=== PATIENT | male | born 1960 | race Caucasian/White ===

== ENCOUNTER → 2020-03-17 | Day surgery (SDC) | payer MEDICARE ==
[2020-03-14 11:58] LABS: BASOPHILS # (AUTO) 0.1 (0.0-0.1); BASOPHILS % 0.7 % (0.0-1.0); EOSINOPHILS % 0.6 % (0.0-6.0); HEMATOCRIT 38.7 % (38.2-49.6); HEMOGLOBIN 12.3 g/dL (14.0-18.0); LYMPHOCYTES # (AUTO) 1.7 (1.0-3.2); LYMPHOCYTES % 24.3 % (18.0-39.1); MEAN CORPUSCULAR HEMOGLOBIN 27.4 pg (28-32); MEAN CORPUSCULAR HGB CONC 31.8 g/dL (31-35); MEAN CORPUSCULAR VOLUME 86.2 fL (81-99); MONOCYTES # (AUTO) 0.6 (0.2-0.8); NEUTROPHILS # (AUTO) 4.6 (2.1-6.9); PLATELET COUNT 202 x10e3/uL (140-360); RED BLOOD COUNT 4.49 x10e6/uL (4.3-5.7); RED CELL DISTRIBUTION WIDTH 13.5 % (11.7-14.4)
[~2020-03-17] MED LIST: ASPIRIN81 MG PO; ATORVASTATIN CA20 MG PO; CALCIUM CARBON200 MG PO; CEFAZOLIN SOD 1 GM/NS 50ML 100 ML IV ONE; DEXAMETHASONE SOD PHOS INJ 4 MG/ML VIAL ONE; EFFIENT10 MG PO; EPHEDRINE SULFATE INJ 50 MG/ML VIAL ONE; FENTANYL CITRATE/PF 100MCG/2 ML INJ ONE; GABAPENTIN300 MG PO; GLYCOPYRROLATE INJ 0.2 MG/ML VIAL ONE; IOPAMIDOL 300MG/ML 50ML INFUS..BTL IV ONE; LEVOFLOXACIN250 MG PO; LIDOCAINE HCL 2% LOCAL INJ 5 ML SDV VIAL INJ ONE; LISINOPRIL10 MG PO; MELATONIN3 MG PO; METOPROLOL; METOPROLOL TART25 MG PO; MIDAZOLAM HCL 2 MG/2 ML VIAL ONE; MIRALAX17 GM PO; ONDANSETRON HCL INJ 2MG/ML 2ML 2 MG/ML VIAL ONE; PANTOPRAZOLE SO40 MG PO; PHENYLEPHRINE HCL 1% 10 MG/ML VIAL ONE; PROPOFOL IV EMULSION 10 MG/ML 20 ML VIAL ONE; SEVOFLURANE INHAL SOLN 250 ML PEN BTL ONE; TYLENOL # 31 EA PO; VENTOLIN HFA18 GM INH
[2020-03-17 13:20] VITALS: BP 110/70
== END | disposition home or self-care (01) ==
LOC: OR 08:41
PROVIDERS: ATTEND Urology
DX: T83.111A Breakdown (mechanical) of implanted urinary sphincter, initial encounter (principal); R32 Unspecified urinary incontinence; N35.919 Unspecified urethral stricture, male, unspecified site; N52.9 Male erectile dysfunction, unspecified; Z96.0 Presence of urogenital implants; N32.89 Other specified disorders of bladder; M54.5 Low back pain; J45.909 Unspecified asthma, uncomplicated; I10 Essential (primary) hypertension; I25.10 Atherosclerotic heart disease of native coronary artery without angina pectoris; K21.9 Gastro-esophageal reflux disease without esophagitis; Y83.8 Other surgical procedures as the cause of abnormal reaction of the patient, or of later complication, without mention of misadventure at the time of the procedure; Z88.6 Allergy status to analgesic agent; Z95.5 Presence of coronary angioplasty implant and graft
CPT/HCPCS: 36415; 52500; 71046; 74450; 85025; J0690; J1100; J2001; J2370; J2405; J2704; J3010; Q9967; U0002; J2250

== ENCOUNTER 2020-03-18 15:54 | Inpatient (IN) | payer MEDICARE ==
[~2020-03-18] VITALS: Ht 170.2 cm; Wt 93.0 kg
[~2020-03-18 15:54] MED LIST changes: -ASPIRIN81 MG PO; -ATORVASTATIN CA20 MG PO; -CALCIUM CARBON200 MG PO; -CEFAZOLIN SOD 1 GM/NS 50ML 100 ML IV ONE; -DEXAMETHASONE SOD PHOS INJ 4 MG/ML VIAL ONE; -EPHEDRINE SULFATE INJ 50 MG/ML VIAL ONE; -FENTANYL CITRATE/PF 100MCG/2 ML INJ ONE; -GABAPENTIN300 MG PO; -GLYCOPYRROLATE INJ 0.2 MG/ML VIAL ONE; -IOPAMIDOL 300MG/ML 50ML INFUS..BTL IV ONE; -LEVOFLOXACIN250 MG PO; -LIDOCAINE HCL 2% LOCAL INJ 5 ML SDV VIAL INJ ONE; -MELATONIN3 MG PO; -METOPROLOL TART25 MG PO; -MIDAZOLAM HCL 2 MG/2 ML VIAL ONE; -MIRALAX17 GM PO; -ONDANSETRON HCL INJ 2MG/ML 2ML 2 MG/ML VIAL ONE; -PANTOPRAZOLE SO40 MG PO; -PHENYLEPHRINE HCL 1% 10 MG/ML VIAL ONE; -PROPOFOL IV EMULSION 10 MG/ML 20 ML VIAL ONE; -SEVOFLURANE INHAL SOLN 250 ML PEN BTL ONE; -TYLENOL # 31 EA PO; -VENTOLIN HFA18 GM INH
[2020-03-18] MEDS ORDERED: FENTANYL CITRATE/PF 100MCG/2 ML INJ IV PRN (16:30)
[2020-03-18] MEDS ORDERED: MORPHINE SULFATE 2 MG/ML SYR 1ML IV PRN (16:30)
[2020-03-18] MEDS ORDERED: AMPICILLIN SOD/SULBACTAM 3GM 100 ML IV ONE (16:30)
--- NOTE | 2020-03-18 16:45 | Emergency Department Note ---
History of Present Illnes History of Present Illness Chief Complaint: Genitourinary History of Present Illness This is a 59 year old male Chief Complaint Comment PT CAME IN VIA POV FOR C/O BACK PAIN, PT STATES THAT HE WAS SENT HERE BY DR. DON FOR ADMISSION AND POSSIBLE SURGERY TOMORROW, PT STATES THAT HE HAD A URETHRAL DILATION WITH DR. DON YESTERDAY AND WAS TOLD HE HAS A HOLE IN HIS URETHRA THAT NEEDS INTERVENTION Historian: Patient Arrival Mode: Car Past Medical/Family History Physician Review I have reviewed the patient's past medical and family history. Any updates have been documented here. Past Medical History Recent Fever: No Clinical Suspicion of Infectio: No New/Unexplained Change in Ment: No Past Medical History: Hypertension, Hyperlipedemia Other Surgery: Urethral Dilation 03/17/2020 Review of Systems Review of Systems Constitutional: Reports no symptoms EENTM: Reports no symptoms Cardiovascular: Reports no symptoms Respiratory: Reports no symptoms Gastrointestinal: Reports as per HPI, Reports abdominal pain (law) Genitourinary: Reports no symptoms Musculoskeletal: Reports no symptoms Integumentary: Reports no symptoms Neurological: Reports no symptoms Psychological: Reports no symptoms Endocrine: Reports no symptoms Hematological/Lymphatic: Reports no symptoms Physical Exam Related Data Allergies: Coded Allergies: morphine (Verified Allergy, Unknown, 03/12/20) Triage Vital Signs Vital Signs Date Time Temp Pulse Resp B/P (MAP) Pulse Ox O2 Delivery O2 Flow Rate FiO2 03/18/20 16:19 97.9 60 20 105/73 100 Room Air Vital signs reviewed: Yes Physical Exam CONSTITUTIONAL Constitutional: Present well-developed, Present well-nourished HENT HENT: Present normocephalic, Present atraumatic, Present oropharynx clear/moist, Present nose normal HENT L/R: Present left ext ear normal, Present right ext ear normal EYES Eyes: Reports PERRL, Reports conjunctivae normal NECK Neck: Present ROM normal PULMONARY Pulmonary: Present effort normal, Present breath sounds normal CARDIOVASCULAR Cardiovascular: Present regular rhythm, Present heart sounds normal, Present capillary refill normal, Present normal rate GASTROINTESTINAL Abdominal: Present soft, Present nontender, Present bowel sounds normal GENITOURINARY Genitourinary: Present exam deferred, Present other (Pelvic pain) SKIN Skin: Present warm, Present dry MUSCULOSKELETAL Musculoskeletal: Present ROM normal NEUROLOGICAL Neurological: Present alert, Present oriented x 3, Present no gross motor or sensory deficits PSYCHOLOGICAL Psychological: Present mood/affect normal, Present judgement normal Assessment & Plan Medical Decision Making MDM 59-year-old male with past medical history significant for pelvic fracture 13 years ago with 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 Patient was told to come to the emergency department for direct admission by Dr. Nick Don. Patient was started on Unasyn and gentamicin. Do not suspect sepsis at this time. Patient was discussed with Dr. Trent who has agreed to admit. Patient appropriate for transfer to floor. Reassessment Reassessment time: 17:24 Reassessment Well appearing, NAD Assessment & Plan Final Impression: (1) UTI (urinary tract infection) Depart Disposition: ADMITTED Last Vital Signs Date Time Temp Pulse Resp B/P (MAP) Pulse Ox O2 Delivery O2 Flow Rate FiO2 03/18/20 16:19 97.9 60 20 105/73 100 Room Air Home Meds Reported Medications [Metoprolol ] No Conflict Check, 25 DAILY 03/12/20 Prasugrel Hcl (EFFIENT) 10 Mg Tablet, 10 MG PO DAILY, #30 TAB 03/12/20 Lisinopril (LISINOPRIL) 10 Mg Tablet, 15 MG PO DAILY, #30 TAB 02/29/20 Medications in the ED Ampicillin Sodium/ Sulbactam Sodium 100 ml @ 100 mls/hr ONCE ONCE IV ; Start 03/18/20 at 16:30; Stop 03/18/20 at 17:29 Gentamicin Sulfate/Sodium Chloride 50 ml @ 50 mls/hr ONCE ONCE IV ; Start 03/18/20 at 17:00; Stop 03/18/20 at 17:59 Ondansetron HCl 4 mg Q4H PRN IV NAUSEA AND VOMITING; Start 03/18/20 at 16:30; Stop 04/17/20 at 16:29 Sodium Chloride 1,000 ml @ 125 mls/hr Q8H IV ; Start 03/18/20 at 16:30; Stop 04/17/20 at 16:29 Morphine Sulfate 4 mg Q4H PRN IV SEVERE PAIN (7-10); Start 03/18/20 at 16:30; Stop 03/25/20 at 16:29; Status UNV Fentanyl Citrate 50 mcg Q2H PRN IV SEVERE PAIN (7-10); Start 03/18/20 at 16:30; Stop 03/25/20 at 16:29 SONIA PAUL MD Mar 18, 2020 16:45
[2020-03-18] MEDS ORDERED: GENTAMICIN 60MG/NS 50ML 50 ML IV ONE (17:00)
--- OUTSIDE RECORDS SUMMARY | 2020-03-18 17:07 | XMS REPORT | Clinical Summary ---
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 Active albuterol (ACCUNEB) 2.5 VVN Q 8 H FOR 0 mg /3 mL (0.083 %) 14 DAYS 0 nebulizer solution Active ProAir HFA 90 SW AND INL 2 0 mcg/actuation inhaler PUFFS PO Q 6 0 H PRN Active ibuprofen (ADVIL) 400 MG TK ONE T PO Q 0 07/15 tablet 4 TO 6 H PRN 0 P OR FEVER Active lisinopriL (PRINIVIL) 10 Take 10 mg by 0 06/08 mg tablet mouth daily. 0 Active tiZANidine (ZANAFLEX) 4 Take 4 mg by 0 MG tablet mouth 3 0 (three) times a day as needed. 07/04/2019 sulfamethoxazole-trimetho Take 1 tablet 14 tablet 0 prim (BACTRIM DS) 800-160 by mouth 2 0 mg per tablet (two) times a day for 7 days. 07/02/2019 traMADoL (ULTRAM) 50 mg Take 1 tablet 12 tablet 0 tabletIndications: acute (50 mg total) 0 pain by mouth every 6 (six) hours as needed for moderate pain for up to 5 days .acute pain. Active Problems Not on file Encounters Care Team Description Date Type Specialty Citlali Oliveira MD Acute low back pain without sciatica, un specified back pain laterality (Primary Dx) 08/25/2019 Emergency Emergency Medicine Brian Celeste MD Complicated UTI (urinary tract infection ) (Primary Dx) 06/27/2019 Emergency Emergency Medicine after 03/18/2019 Surgical History Surgery Date Site/Laterality Comments COLON SURGERY INSERT / REPLACE / REMOVE insertion of artifical s phincter PROSTHESIS URETHRAL SPHINCTER LYSIS, ADHESIONS, FOR SMALL BOWEL OBSTRUCTION Medical History Medical History Date Comments Sepsis (HCC) 09/20 Asthma Social History Date Tobacco Use Types Packs/Day Years Used Never Smoker Smokeless Tobacco: Never Used Drinks/Week oz/Week Comments Alcohol Use No Sex Assigned at Date Recorded Not on file Last Filed Vital Signs Reading Time Taken Comments Vital Sign 168/98 08/25/2019 11:00 AM CDT Blood Pressure 64 08/25/2019 11:00 AM CDT Pulse 36.7 C (98.1 F) 08/25/2019 10:15 AM CDT Temperature 19 08/25/2019 10:15 AM CDT Respiratory Rate 97% 08/25/2019 11:00 AM CDT Oxygen Saturation - - Inhaled Oxygen Concentration 90.7 kg (200 lb) 08/25/2019 10:15 AM CDT Weight 170.2 cm (5' 7") 08/25/2019 10:15 AM CDT Height 31.32 08/25/2019 10:15 AM CDT Body Mass Index Plan of Treatment Health Maintenance Due Date Last Done Comments COLONOSCOPY SCREENING 10/21/2011 SHINGLES VACCINES (#1) 10/21/2011 INFLUENZA VACCINE 12/05/2019 Procedures Comments Procedure Name Priority Date/Time Associated Diag nosis URINE CULTURE Routine 08/25/2019 11:33 AM CDT URINALYSIS SCREEN AND Routine 08/25/2019 MICROSCOPY, WITH REFLEX 11:14 AM CDT TO CULTURE ESTIMATED GFR STAT 08/25/2019 10:43 AM CDT COMPREHENSIVE METABOLIC STAT 08/25/2019 PANEL 10:43 AM CDT HC COMPLETE BLD COUNT STAT 08/25/2019 W/AUTO DIFF 10:[address] RENAL STONE PROTOCOL STAT 06/27/2019 7:06 PM [facility] URINE CULTURE STAT 06/27/2019 5:47 PM [facility] ESTIMATED GFR STAT 06/27/2019 5:30 PM [facility] LIPASE LEVEL STAT 06/27/2019 5:30 PM [facility] COMPREHENSIVE METABOLIC STAT 06/27/2019 PANEL 5:30 PM [facility] HC COMPLETE BLD COUNT STAT 06/27/2019 W/AUTO DIFF 5:30 PM [facility] URINALYSIS SCREEN AND STAT 06/27/2019 MICROSCOPY, WITH REFLEX 4:45 PM [facility] TO CULTURE after 03/18/2019 Results * Urine culture (08/25/2019 11:33 AM CDT) Only the most recent of 2 results within the time period is included. Urine culture Mixed sisi <=10-3 col/cc [facility] isolate Comment: [facility]SH[facility] Specimen Information HOSPITAL Specimen Source: Urine Specimen Site: Clean catch Specimen Urine Performing Organization Address City/State/ZIP Code P ford Number [facility] DEPARTMENT OF [address] [place] [address] PATHOLOGY AND GENOMIC MEDICINE [address] * Urinalysis screen and microscopy, with reflex to culture (08/25/2019 11:14 AM CDT) Only the most recent of 2 results within the time period is included. Specimen site Clean catch [facility] Color, UA Yellow [facility] Appearance, UA Slightly-Cloudy [facility] Specific 1.019 1.001 - 1.035 [place] gravity, [facility] pH, UA 7.0 5.0 - 8.5 [facility] Protein, UA Negative Negative [facility] Glucose, UA Negative Negative [facility] Ketones, UA Negative Negative [facility] Bilirubin, UA Negative Negative [facility] Blood, UA Negative Negative [facility] Nitrite, UA Negative Negative [facility] Urobilinogen, Negative <2.0 [facility] Leukocyte Negative Negative [facility] esterase, [facility] Epithelial Many /HPF [facility] cells, UA [facility] WBC, UA 7 (H) 0 - 1 /HPF [facility] RBC, UA 2 0 - 5 /HPF [facility] Bacteria, UA None seen None seen [facility] Yeast, UA None seen [facility] Yeast with None seen [facility] pseudohyphae, [facility] Specimen Urine Performing Organization Address City/[facility]/ZIP Code P ford Number [facility] DEPARTMENT OF [address] [place] [address] PATHOLOGY AND GENOMIC MEDICINE [address] * Estimated GFR (08/25/2019 10:43 AM CDT) Only the most recent of 2 results within the time period is included. Pathologist [facility] Estimated GFR 83 mL/min/1.73 m2 [facility] Comment: [facility] G1 >=90 Normal or high G2 60-89 Mildly decreased G3a 45-59 Mildly to moderately decreased G3b 30-44 Moderately to severely decreased G4 15-29 Severely decreased G5 <15 Kidney failure The eGFR was calculated using the Chronic Kidney Disease Epidemiology Collaboration (CKD-EPI) equation. Interpretation is based on recommendations of the National Kidney Foundation-Kidney Disease Outcomes Quality Initiative (NKF-KDOQI) published in 2014. Specimen Performing Organization Address City/[facility] [place] [address] PATHOLOGY AND GENOMIC MEDICINE [address] * CBC with platelet and differential (08/25/2019 10:43 AM CDT) Only the most recent of 2 results within the time period is included. WBC 6.3 4.2 - 11.0 k/uL [facility] RBC 4.63 4.04 - 5.86 m/uL [facility] HGB 14.0 13.0 - 17.3 g/dL [facility] HCT 42.5 34.0 - 45.0 % [facility] MCV 91.8 80.0 - 98.0 fL [facility] MCH 30.2 27.0 - 34.0 pg [facility] MCHC 32.9 31.5 - 36.5 g/dL [facility] RDW - SD 47.5 37.0 - 51.0 fL [facility] MPV 9.3 7.4 - 10.4 fL [facility] Platelet count 192 150 - 400 k/uL [facility] Nucleated RBC 0.00 /100 WBC [facility] Neutrophils 51.3 36.0 - 66.0 % [facility] Lymphocytes 36.4 24.0 - 44.0 % [facility] Monocytes 9.2 (H) 0.0 - 6.0 % [facility] Eosinophils 1.7 0.0 - 6.0 % [facility] Basophils 0.8 0.0 - 1.2 % [facility] Immature 0.6 0.0 - 1.0 % [facility] granulocytes [facility] Specimen Blood Performing Organization Address City/State/ZIP Code P ford Number [facility] DEPARTMENT OF [address] [place] [address] PATHOLOGY AND GENOMIC MEDICINE [address] * Comprehensive metabolic panel (08/25/2019 10:43 AM CDT) Only the most recent of 2 results within the time period is included. Sodium 140 135 - 150 mEq/L [facility] Potassium 4.9 3.5 - 5.0 mEq/L [facility] Chloride 105 98 - 112 mEq/L [facility] CO2 23 (L) 24 - 31 mmol/L [facility] Anion gap 12@ANIO 7 - 15 mEq/L [facility] BUN 14 7 - 18 mg/dL [facility] Creatinine 1.00 0.70 - 1.20 mg/dL [facility] Glucose 101 (H) 65 - 100 mg/dL [facility] Calcium 9.9 8.3 - 10.2 mg/dL [facility] Protein 6.8 6.3 - 8.3 g/dL [facility] Albumin 3.7 3.5 - 5.0 g/dL [facility] A/G ratio 1.2 0.7 - 3.8 [facility] Alkaline 70 0 - 129 U/L [facility] phosphatase [facility] AST 21 10 - 50 U/L [facility] ALT 21 5 - 50 U/L [facility] Total bilirubin <0.3 0.2 - 1.2 mg/dL [facility] Specimen Blood Performing Organization Address City/State/ZIP Code P ford Number [facility] DEPARTMENT OF [address] [id number] PATHOLOGY AND GENOMIC MEDICINE [facility] [address] [place] [address] * CT Renal Stone Protocol (06/27/2019 7:06 PM [facility]) Specimen Narrative Performed At EXAMINATION: CT RENAL STONE PROTOCOL [facility] CLINICAL HISTORY: Urinary tract stone known symptomatic complications or risk factors, right flank pain TECHNIQUE: Multiple axial images of the abdomen and pelvis were obtained without intravenous administration of iodinated contrast. Sagittal and coronal computerized reformatted images were al so obtained. The lack of intravenous contrast reduces the sensitivity of detecting solid organ di sease.Automatic exposure control or iterative reconstruction techniques use d to reduce dose. COMPARISON: 11/13/2017 Impression: 1.Without IV contrast evaluation of henna id organs of upper abdomen is limited. No nephrolithiasis or hydronephrosis. Uret ers are not dilated and no stones are seen in the bladder. 2.Significant distention of the stomach containing debris-like material. Possibility of gastric outlet obstructi on should be considered and correlated. 3.No small bowel obstruction. Evidence for prior small bowel surgery. 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 5.In the dependent part of the pelvis t here is a 3.3 x 2.4 cm soft tissue nodule new since the prior study. Summary: 1.Gastric distention suggesting gastric outlet obstruction and should be correlated clinically. 2.New pelvic 3.3 cm soft tissue nodule. This could be an enlarged node or other peritoneal mass. Contrast enhanced stud y or MRI would be useful for further evaluation. [facility]-[id number] Procedure Note Hm Interface, Radiology Results Incoming - 06/27/2019 7:24 PM [facility] EXAMINATION: CT RENAL STONE PROTOCOL CLINICAL HISTORY: Urinary tract stone known symptomatic complications or risk factors, right flank pain TECHNIQUE: Multiple axial images of the abdomen and pelvis were obtained without intravenous administration of iodinated contrast. Sagittal and coronal computerized reformatted images were also obtained. The lack of intravenous contrast reduces the sensitivity of detecting solid organ disease.Automatic exposure control or iterative reconstruction techniques used to reduce dose. COMPARISON: 11/13/2017 Impression: 1.Without IV contrast evaluation of orquidea d organs of upper abdomen is limited. No nephrolithiasis or hydronephrosis. Ureters are not dilated and no stones are seen in the bladder. 2.Significant distention of the stomach containing debris-like material. Possibility of gastric outlet obstruction should be considered and correlated. 3.No small bowel obstruction. Evidence f or prior small bowel surgery. 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 5.In the dependent part of the pelvis th ere is a 3.3 x 2.4 cm soft tissue nodule new since the prior study. Summary: 1.Gastric distention suggesting gastric outlet obstruction and should be correlated clinically. 2.New pelvic 3.3 cm soft tissue nodule. This could be an enlarged node or other peritoneal mass. Contrast enhanced study or MRI would be useful for further evaluation. [facility]-[id number] Performing Organization Address City/[facility]/ZIP Code P ford Number [facility] [address] [place] [address] * Lipase level (06/27/2019 5:30 PM [facility]) Lipase 61 (H) 13 - 60 U/L [facility] Specimen Plasma specimen Performing Organization Address City/State/ZIP Code P ford Number [facility] DEPARTMENT OF [address] [place] [address] PATHOLOGY AND GENOMIC MEDICINE [facility] [address] [place] [address] HOSPITAL after 03/18/2019 Insurance Type Payer Benefit Subscriber ID Effective Phone Address Plan / Dates Group [facility] MEDICARE AARP [id number] 2019-P MEDICARE resent ADVANTAGE PLAN HMO-POS ([place]) Advance Directives For more information, please contact: [phone] Patient [facility] Explanation Type Date Recorded Advance Directives, 10/11/2017 2:54 AM Living Will and Medical Power of Dividend Deposit Entry Clerk Advance Directives, 11/13/2017 9:07 PM Living Will and Medical Power of Dividend Deposit Entry Clerk Advance Directives, 06/27/2019 7:36 PM Living Will and Medical Power of Dividend Deposit Entry Clerk Advance Directives, 08/25/2019 10:36 AM Living Will and Medical Power of Dividend Deposit Entry Clerk
--- OUTSIDE RECORDS SUMMARY | 2020-03-18 17:09 | XMS REPORT | Continuity of Care Document ---
Author Author [facility] t Organization [facility] Address [address] [place] [address] Phone Unavailable Care Team Providers Care Die Repairer Trimmer Dies Name Role Phone Asked, Pcp No PCP Unavailable MIKE DON Attphys Unavailable Roxanne PRETTY, Mario Alberto Godwin Attphys Booker PRETTY, Krunal Torres Attphys [phone] Payers Payer Name Policy Type Policy Number Effective Date Expiration Date S scotty [facility] MEDICAREAARP MEDICARE ADVANTAGE PLAN HMO-POS (WELLMED)[id number] 2019-PresentHMO [id number] 2019 00:00 :00 [facility] Problems This patient has no known problems. Allergies, Adverse Reactions, Alerts Allergy Name Allergy Type Status Severity Reaction(s) Onset Date Inacti ve Date Treating Clinician Comments Source Iodinated Contrast Media DA Active U 2020-01-21 00:00:00 [facility] No Known Allergies DA Active U 2020-01-21 00:00:00 [facility] No Known Allergies DA Active U 2019-11-10 00:00:00 [facility] morphine DA Active MO 2019-10-15 00:00:00 [facility] morphine DA Active MO 2019-07-29 00:00:00 [facility] morphine DA Active MO 2019-02-10 00:00:00 [facility] morphine DA Active MO 2019-01-13 00:00:00 [facility] morphine DA Active MO 2018-10-07 00:00:00 [facility] morphine DA Active MO 2018-10-06 00:00:00 [facility] CHLORHEXEDINE GLUCONATE WIPES DA Active [place] 2018-09-10 00:0 0:00 [facility] morphine DA Active MO 2018-08-13 00:00:00 [facility] Morphine Propensity to adverse reactions to drug Active Itching 2018-04-28 00:00:00 Adiel Chan t morphine DA Active [place] 2018-04-28 00:00:00 [facility] No Known Allergies DA Active U 2018-04-28 00:00:00 [facility] No Known Allergies DA Active U 2015-12-16 00:00:00 [facility] Social History Social Habit Start Date Stop Date Quantity Comments Source Sex Assigned At Katherine Ibarra Tobacco use and exposure 2019-08-25 00:00:00 2019-08-25 00:00:00 Bryan davison used Adiel Ibarra Alcohol intake 2019-08-25 00:00:00 2019-08-25 00:00:00 Current non-drinker of alcohol (finding) Adiel Ibarra Smoking Status Start Date Stop Date Source Never smoker Adiel angulo Medications Ordered Medication Name Filled Medication Name Start Date Stop Da te Current Medication? Ordering Clinician Indication Dosage Frequency Signature (SIG) Comments Components Source ibuprofen (ADVIL) 400 MG tablet 2019-07-16 00:00:00 Yes TK ONE T PO Q 4 TO 6 H PRN P OR FEVER Adiel Rosario iskev albuterol (ACCUNEB) 2.5 mg /3 mL (0.083 %) nebulizer solutio n 2019-07-15 00:00:00 Yes VVN Q 8 H FOR 14 DAYS Adiel Ibarra ProAir HFA 90 mcg/actuation inhaler 2019-07-15 00:00:00 Yes SW AND INL 2 PUFFS PO Q 6 H PRN Adiel linares tiZANidine (ZANAFLEX) 4 MG tablet 2019-07-13 00:00:00 Ye s 4mg Q.[id number] Take 4 mg by mouth 3 (three) times a day as needed. Adiel Ibarra sulfamethoxazole-trimethoprim (BACTRIM DS) 800-160 mg per ta blet 2019-06-27 00:00:00 2019-07-04 23:59:00 No 1{tbl} Q.5D Take 1 tablet by mouth 2 (two) times a day for 7 days. Adiel angulo traMADoL (ULTRAM) 50 mg tablet 2019-06-27 00:00:00 2019-06-07 7 23:59:00 No acute pain 50mg Q6H Take 1 tablet (50 mg total) by mouth every 6 (six) hours as needed for moderate pain for up to 5 days .acute pain. Adiel Ibarra lisinopriL (PRINIVIL) 10 mg tablet 2019-06-08 00:00:00 Yes 10mg QD Take 10 mg by mouth daily. Adiel Ibarra gabapentin (NEURONTIN) 300 mg capsule 2017-11-13 18:49:19 Y es 300mg QD Take 300 mg by mouth nightly. Adiel العلي Vital Signs Vital Name Observation Time Observation Value Comments Source Systolic blood pressure 2019-08-25 11:00:00 168 mm[Hg] Adiel Ibarra Diastolic blood pressure 2019-08-25 11:00:00 98 mm[Hg] Adiel Ibarra Heart rate 2019-08-25 11:00:00 64 /min Adiel Ibarra Oxygen saturation in Arterial blood by Pulse oximetry 08-24 11:00:00 97 /min Adiel Ibarra Body temperature 2019-08-25 10:15:20 36.72 Rafaela Jeremy Ibarra Respiratory rate 2019-08-25 10:15:20 19 /min Jeremy Ibarra Body height 2019-08-25 10:15:00 170.2 cm Adiel Ibarra Body weight 2019-08-25 10:15:00 90.719 kg Adiel Ibarra BMI 2019-08-25 10:15:00 31.32 kg/m2 Adiel Ibarra Procedures Procedure Date / Time Performed Performing Clinician Sourc e URINE CULTURE 2019-08-25 11:33:00 ИринаMere Sarah [facility] URINALYSIS SCREEN AND MICROSCOPY, WITH REFLEX TO CULTURE 202 11:14:00 ИринаMere Sarah [facility] HC COMPLETE BLD COUNT W/AUTO DIFF 2019-08-25 10:43:00 ИринаWilmer ujose franciscomalik Sarah [place] COMPREHENSIVE METABOLIC PANEL 2019-08-25 10:43:00 ИринаAlexis sophie Smith [place] [facility] ESTIMATED GFR 2019-08-25 10:43:00 Ирина Mere [facility] Religion CT RENAL STONE PROTOCOL 2019-06-27 19:06:29 Pearl Hsu URINE CULTURE 2019-06-27 17:47:00 JoseMaximo Cristiane Chun Meth odist HC COMPLETE BLD COUNT W/AUTO DIFF 2019-06-27 17:30:00 Luz Terrell se COMPREHENSIVE METABOLIC PANEL 2019-06-27 17:30:00 Bobby Terrell LIPASE LEVEL 2019-06-27 17:30:00 Bobby Terrell on Religion ESTIMATED GFR 2019-06-27 17:30:00 Jose, Maximo Cristiane Chun [facility]ist URINALYSIS SCREEN AND MICROSCOPY, WITH REFLEX TO CULTURE 202 16:45:00 Bobby Terrell Plan of Care Planned Activity Planned Date Details Comments Source Future Scheduled Test 2019-12-05 00:00:00 INFLUENZA VACCINE [code = INFLUENZA VACCINE] [facility] Future Scheduled Test 2011-10-21 00:00:00 COLONOSCOPY SCREEN ING [code = COLONOSCOPY SCREENING] [facility] Future Scheduled Test 2011-10-21 00:00:00 SHINGLES VACCINES (#1) [code = SHINGLES VACCINES (#1)] [facility] Encounters Start Date/Time End Date/Time Encounter Type Admission Type Attendi [facility] Care Department Encounter ID Source 2019-08-25 00:00:00 2019-08-25 00:00:00 Emergency ROXANNE, Nick [facility] [id number] [facility] 2019-06-27 00:00:00 2019-06-27 00:00:00 Emergency BOBBY TERRELL [id number] [facility] 2018-08-13 15:15:00 2018-08-13 15:15:00 Emergency E MHNE [facility] [address] [facility] Results Test Description Test Time Test Comments Results Result Comments Source B-TYPE NATRIURETIC PEPTIDE 2020-03-18 13:27:00 Test Item B-TYPE NATRIURETIC PEPTIDE (test code = BNP) 36.0 PG/ML 0-100 N - CT ABD PELVIS W/O [id number] 13:25:00 [facility] SANGEETHA BEDFORDName: LAVONNE CONTRERAS : 1960 Sex: M Name: LAVONNE CONTRERAS [facility] [place] : 1960 Age/S: 59 / M [address] [place] [address] Unit #: [id number] Loc: [place] [address] Phys: Thom Bliss Acct: [id number] Dis Date: Status: REG ER PHONE #: [phone] Exam Date: 03/18/2020 1301 FAX #: [phone] Reason: flank kacie n, fever, vomiting EXAMS: CPT CODE: [id number] CT ABD PELVIS W/O CONT 76024 PROCEDURE: CT ABDOMEN AND PELVIS WITHOUT CONTRAST ( RENAL STONE CT) INDICATION: flank pain, fever, vomiting; 59-year-o ld male with history of recent bladder procedure, timing not specified. COMPARISON: CT abdomen and pelvis without contrast 01/21/2020, 01/01/2020 TECHNIQUE: Noncontrasted helical [facility] the symphysis as a renal stone protocol with multiplanar reconstructions. CT imaging performed at this location utilizes radi [facility] dose optimization techniques which include one or more of the follow ing: -Automated exposure control -Adjustment of the mA and/or kV acc ording to patient size -Use of iterative reconstruction technique CT Radiation Dose DLP 717.41 mGy-cm LIMITATIONS: Evaluation of abdom inal viscera and vascular structures may be limited by the lack of intrave nous contrast, which is standard for urinary calculus assessment CT. FINDINGS: KIDNEYS: The renal contours are normal. No uri nary calculi or hydronephrosis. Mild symmetric perinephric stranding is ch ronic and nonspecific. LOWER CHEST: The lung bases are clear . LIVER: Normal. BILIARY TREE: No biliary dilatation . GALLBLADDER: Cholecystectomy SPLEEN: Normal. PANCREAS: Normal. ADRENALS: Normal. BOWEL: Stomach and small bowel are unremarkable. Moderate volume of fecal materia l throughout the colon. No pathologic bowel wall thickening or other acute abnormality. PAGE 1 Signed Report (CONTINUED) Name: LAVONNE CONTRERAS [facility] : 1960 Age/S: 59 / M [address] [place], [place] [address] Unit #: [id number] Loc: [place] [address] Ph s: RuthyThom RUIZ Acct: [id number] Dis Date: Status: REG ER PHONE #: [phone] Exam Date: 03/18/2020 1301 FAX #: [phone] Reason: flank pain, fever, vomiting EXAMS: CPT CODE: [id number] CT ABD PELVIS W/O CONT 57531 <Continued> APPENDIX: Surgically absent PERITONEUM: There is no free intraperitoneal fluid or air. Stable calcifications in the right upper quadrant mesentery surrounding fat attenuation tissue compatible with chronic fat necrosis. Stable circumscribed oval nodule in the central righ t pelvis 2.6 x 1.8 cm previously documented stable from earlier exams and compatible with benign finding. RETROPERITONEUM: There is no retroperitoneal mass or fluid collection. The aorta and IVC are unremarka ble. Retroaortic left renal vein, anatomic variant. PELVIS: There are chronic deformities of the innominate bones with broad diastases of the pubic symphysis. Penile implants with associated reservoir in the left extraperitoneal pelvis. Stable postoperative changes in the regional tissues. There is a circumscribed fluid collection in the ventral perineum near the base of penis measuring approximately 3.5 x 3 x 2.9 cm, series 2 image 134, series 602 image 53. There is layering hyperattenuating materi al and small focus of intraluminal gas. The urinary bladder is partially contracted containing small volume of intraluminal gas. No gross path ologic wall thickening or perivesicular inflammation. There is no pelvic o r inguinal adenopathy by size criteria. MUSCULOSKELETAL: Posttraum atic deformities of the innominate bones as above. Single screw traversing the left sacroiliac joint and sacral body. Degenerative changes lumbar sp ine. No acute skeletal abnormality. IMPRESSION: 1 . 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 There is a circumscribed fluid collection in the ventral perineum near the base of penis containing hyperattenuat ing material possibly reflecting residual contrast versus milk of calciu m and small volume of intraluminal gas suggesting communication with the urinary tract. Chronic contained perforation suspected. Abscess in the differential. Suggest consultation with the patient's urologist regardin g intraprocedural findings. 2. Intraluminal gas in the urinary bladder c ompatible with recent instrumentation. 3. Negative for urinary c alculus or evidence of obstruction. 4. Moderate stool burden. PAGE 2 Signed Report (CONTINUED) Name: CAT JUDITHLAVONNE ORTIZ [facility] : [birth year] Age/S: 59 / M [address] [place] [address] Unit #: [id number] Loc: [place] [address] Phys: Thom Bliss Acct: [id number] Dis Date: Status: REG ER PHONE #: [phone] Exam Date: 03/18/2020 1301 FAX #: [phone] R rashaun: flank pain, fever, vomiting EXAMS: CPT CODE: [id number] CT ABD PELVIS W/O CONT 98573 <Continued> 5. Other chronic nonemergent findings as above. SL: [id number] at 1325 Reported and signed by: Dru Rodriguez M.D. CC: Bassam Fajardo DO; Tony Espinal DO; Thom RUIZ Technologist:Shania Krnavek, RT(R)(CT) CTDI: DLP: Trnscb Date/Time: 03/18/2020 (5805) [email or web address] Orig Print D/T: S: 03/18/2020 (8425) PAGE 3 Signed Report COMPREHENSIVE METABOLIC [id number] 13:23:00* Test Item Value Reference Range Interpretation Comments SODIUM (test code = NA) 139 mEq/L 134-147 N POTASSIUM (test code = K) 4.8 mEq/L 3.4-5.0 N CHLORIDE (test code = CL) 107 mEq/L 100-108 N CARBON DIOXIDE (test code = CO2) 22 mEq/L 21-33 N ANION GAP (test code = GAP) 15 0-20 N GLUCOSE (test code = GLU) 113 mg/dL 70-110 H BLOOD UREA NITROGEN (test code = BUN) 20 mg/dL 7-18 H GLOMERULAR FILTRATION RATE (test code = GFR) 52.1 90-95 L Units of measure = ml/min/1.73 m2 CREATININE (test code = CREAT) 1.4 mg/dL 0.6-1.3 H TOTAL PROTEIN (test code = PROT) 6.6 g/dL 6.4-8.2 N ALBUMIN (test code = ALB) 4.10 g/dL 3.4-5.0 N CALCIUM (test code = CA) 9.1 mg/dL 8.0-10.5 N BILIRUBIN TOTAL (test code = BILT) 0.30 mg/dL 0.0-1.0 N SGOT/AST (test code = AST) 57 IUnit/L 15-37 H SGPT/ALT (test code = ALT) 51 IUnit/L 30-65 N ALKALINE PHOSPHATASE TOTAL (test code = ALKP) 139 IUnit/L 20-125 H [id number] 13:22:00* Test Item Value Reference Range Interpretation Comments TROPONIN-I (test code = TROPI) < 0.006 ng/mL 0.000-0.045 N Negative: <= 0.045 Positive: >= 0.046 Correlation with serial results, other cardiac markers andclinical findings is necessary to determine the clinicalsignificance of this result. Results using different methodologies should not be comparedto one another as quantitative results may vary by method. LACTIC [id number] 13:13:00* Test Item Value Reference Range Interpretation Comments LACTIC ACID (test code = LACT) 1.9 mmol/L 0.4-1.9 N CBC W/AUTO [id number] 13:05:00* Test Item Value Reference Range Interpretation Comments WHITE BLOOD CELL (test code = WBC) 9.8 x10 3/uL 4.5-11.0 N RED BLOOD CELL (test code = RBC) 4.22 x10 6/uL 4.00-5.60 N HEMOGLOBIN (test code = HGB) 11.6 g/dL 12.5-16.9 L HEMATOCRIT (test code = HCT) 38.3 % 37.5-50.7 N MEAN CELL VOLUME (test code = MCV) 90.8 fL 81.0-99.0 N MEAN CELL HGB (test code = MCH) 27.5 pg 27.0-33.0 N MEAN CELL HGB CONCETRATION (test code = MCHC) 30.3 g/dL 33.0-37. 0 L RED CELL DISTRIBUTION WIDTH CV (test code = RDW) 13.6 % 11.5- 14.5 N RED CELL DISTRIBUTION WIDTH SD (test code = RDW-SD) 44.9 fL 37 .0-54.0 N PLATELET COUNT (test code = PLT) 226 x10 3/uL 150-400 N MEAN PLATELET VOLUME (test code = MPV) 10.1 fL 7.0-9.0 H NEUTROPHIL % (test code = NT%) 65.2 % 56.0-77.0 N IMMATURE GRANULOCYTE % (test code = IG%) 0.2 % 0.0-2.0 N LYMPHOCYTE % (test code = LY%) 22.7 % 14.0-32.0 N MONOCYTE % (test code = MO%) 10.2 % 4.8-9.0 H EOSINOPHIL % (test code = EO%) 1.3 % 0.3-3.7 N BASOPHIL % (test code = BA%) 0.4 % 0.0-2.0 N NUCLEATED RBC % (test code = NRBC%) 0.0 % 0-0 N NEUTROPHIL # (test code = NT#) 6.37 x10 3/uL 2.0-7.6 N IMMATURE GRANULOCYTE # (test code = IG#) 0.02 x10 3/uL 0.00-0.03 N LYMPHOCYTE # (test code = LY#) 2.22 x10 3/uL 1.0-3.8 N MONOCYTE # (test code = MO#) 1.00 x10 3/uL 0.1-0.8 H EOSINOPHIL # (test code = EO#) 0.13 x10 3/uL 0.0-0.2 N BASOPHIL # (test code = BA#) 0.04 x10 3/uL 0.0-0.2 N NUCLEATED RBC # (test code = NRBC#) 0.00 x10 3/uL 0.0-0.1 N MANUAL DIFF REQUIRED (test code = MDIFF) NO CBC W/AUTO [id number] 13:01:00* Test Item Value Reference Range Interpretation Comments WHITE BLOOD CELL (test code = WBC) x10 3/uL 4.5-11.0 RED BLOOD CELL (test code = RBC) x10 6/uL 4.00-5.60 HEMOGLOBIN (test code = HGB) g/dL 12.5-16.9 HEMATOCRIT (test code = HCT) 38.3 % 37.5-50.7 N MEAN CELL VOLUME (test code = MCV) fL 81.0-99.0 MEAN CELL HGB (test code = MCH) pg 27.0-33.0 MEAN CELL HGB CONCETRATION (test code = MCHC) g/dL 33.0-37. 0 RED CELL DISTRIBUTION WIDTH CV (test code = RDW) % 11.5- 14.5 PLATELET COUNT (test code = PLT) 226 x10 3/uL 150-400 N NEUTROPHIL % (test code = NT%) % 56.0-77.0 LYMPHOCYTE % (test code = LY%) % 14.0-32.0 NEUTROPHIL # (test code = NT#) x10 3/uL 2.0-7.6 LYMPHOCYTE # (test code = LY#) x10 3/uL 1.0-3.8 MANUAL DIFF REQUIRED (test code = MDIFF) UA RFLX MICR CULT IF [id number] 11:57:00* Test Item Value Reference Range Interpretation Comments UA COLOR (test code = COLU) YARITZA YEL/STRAW A UA APPEARANCE (test code = APPU) CLEAR CLEAR UA GLUCOSE DIPSTICK (test code = DGLUU) NEGATIVE NEGATIVE UA BILIRUBIN DIPSTICK (test code = BILU) NEGATIVE NEGATIVE UA KETONE DIPSTICK (test code = KETU) NEGATIVE NEGATIVE UA SPECIFIC GRAVITY (test code = SGU) 1.026 1.005-1.030 N UA BLOOD DIPSTICK (test code = MERARY) 3+ NEGATIVE A UA PH DIPSTICK (test code = JAISON) 5.0 5.0-7.0 N UA PROTEIN DIPSTICK (test code = PROU) 1+ NEGATIVE A UA UROBILINIOGEN DIPSTICK (test code = URO) 2.0 mg/dL 0.2-1.0 A UA NITRITE DIPSTICK (test code = NOEL) POSITIVE NEGATIVE A UA LEUKOCYTE ESTERASE DIPSTICK (test code = LEUU) 1+ NEGA TIVE A UA WBC (test code = WBCU) >50 WBC/HPF 0-3 A UA RBC (test code = RBCU) >50 RBC/HPF 0-3 A UA WBC NO REFLEX (test code = WBCUCL) >50 WBC/HPF 0-3 A UA BACTERIA (test code = BACU) TRACE /HPF NONE SEEN UA SQUAMOUS CELLS (test code = SQU) 0-5 /HPF NONE SEEN UA HYALINE CAST (test code = HYALU) 6-10 /LPF NONE SEEN UA MUCUS (test code = MUCU) 1+ /LPF NONE SEEN Indication for culture: Flank PainSpecimen Description: [facility] 2 [id number] 12:35:00 [facility] 1960 Sex: M [place] [address] Patient Name: LAVONNE CONTRERAS MR #: [id number] : 1960 Age/Sex: 59/M Req #: [id number] [facility] Physician: Dianne copeland by: MIKE DON MD Report #: [id number] Locati on: OR Room/Bed: Procedure: [id number] DX/CHEST 2 VIEWS Exam Date: 03/14/20 Exam Time: 1210 REPORT STATUS: Signed Exam: CHEST 2 VIEWS Date: 03/14/2020 12:35 PM I NDICATION: PRE OP Comparison: None FINDINGS: Lines/Tubes:None Lungs:The lungs are well inflated. No focal consolidation or pulmonary evert ma. Pleura:No pleural effusion. No pneumothorax. Heart/Mediastinum:The cardiomediastinal silhouette is normal in size and contour. Bones/Soft T issues: No acute osseous abnormality. Mild multilevel degenerative changes of the spine are noted. Upper abdomen: Unremarkable. IMPRESSION: Neg ative for acute intrathoracic process. Signed by: Abdoulaye Odonnell MD on 020 12:36 PM Dictated By: ABDOULAYE ODONNELL MD 1236 Transcribed By: ISMA on 03/14/20 1236 C OPY TO: MIKE DON MD BASIC METABOLIC [id number] 11:11:00* Test Item Value Reference Range Interpretation Comments SODIUM (test code = NA) 141 mmol/L 136-145 N POTASSIUM (test code = K) 4.0 mmol/L 3.5-5.1 N CHLORIDE (test code = CL) 110.0 mmol/L 98-107 H CARBON DIOXIDE (test code = CO2) 26.0 mmol/L 21-32 N ANION GAP (test code = GAP) 9.0 10-20 L GLUCOSE (test code = GLU) 135 mg/dL 74-106 H BLOOD UREA NITROGEN (test code = BUN) 16 mg/dL 7-18 N GLOMERULAR FILTRATION RATE (test code = GFR) > 60 mL/min >=60 Estimated GFR by using Modified MDRD formula.Chronic kidney disease is defined as either kidney damageor GFR <60 mL/min/1.73 m2 for >3 months. CREATININE (test code = CREAT) 0.80 mg/dL 0.7-1.3 N BUN/CREATININE RATIO (test code = BUN/CREA) 18.9 10-20 N CALCIUM (test code = CA) 9.0 mg/dL 8.5-10.1 N HEPATIC FUNCTION [id number] 11:11:00* Test Item Value Reference Range Interpretation Comments TOTAL PROTEIN (test code = PROT) 6.5 gram/dL 6.4-8.2 N ALBUMIN (test code = ALB) 3.7 g/dL 3.4-5.0 N GLOBULIN (test code = GLOB) 2.8 gram/dL 2.7-4.2 N ALBUMIN/GLOBULIN RATIO (test code = A/G) 1.3 0.75-1.50 N BILIRUBIN TOTAL (test code = BILT) 0.20 mg/dL 0.0-1.0 N BILIRUBIN DIRECT (test code = BILD) 0.08 mg/dL 0.0-0.20 N SGOT/AST (test code = AST) 20 IUnit/L 15-37 N SGPT/ALT (test code = ALT) 32 IUnit/L 12-78 N ALKALINE PHOSPHATASE TOTAL (test code = ALKP) 79 IUnit/L 45-117 N Note change in reference range due to change in reagent. [id number] 11:11:00* Test Item Value Reference Range Interpretation Comments LIPASE (test code = LIP) 210 U/L 73.0-393.0 N LACTIC [id number] 11:11:00* Test Item Value Reference Range Interpretation Comments LACTIC ACID (test code = LACT) 1.3 mmol/L 0.4-1.9 N BASIC METABOLIC [id number] 11:01:00* Test Item Value Reference Range Interpretation Comments SODIUM (test code = NA) 141 mmol/L 136-145 N POTASSIUM (test code = K) 4.0 mmol/L 3.5-5.1 N CHLORIDE (test code = CL) 110.0 mmol/L 98-107 H CARBON DIOXIDE (test code = CO2) mmol/L 21-32 ANION GAP (test code = GAP) 10-20 GLUCOSE (test code = GLU) mg/dL 74-106 BLOOD UREA NITROGEN (test code = BUN) mg/dL 7-18 GLOMERULAR FILTRATION RATE (test code = GFR) mL/min >=60 CREATININE (test code = CREAT) mg/dL 0.7-1.3 BUN/CREATININE RATIO (test code = BUN/CREA) 10-20 CALCIUM (test code = CA) mg/dL 8.5-10.1 HEPATIC FUNCTION [id number] 11:01:00* Test Item Value Reference Range Interpretation Comments TOTAL PROTEIN (test code = PROT) gram/dL 6.4-8.2 ALBUMIN (test code = ALB) g/dL 3.4-5.0 GLOBULIN (test code = GLOB) gram/dL 2.7-4.2 ALBUMIN/GLOBULIN RATIO (test code = A/G) 0.75-1.50 BILIRUBIN TOTAL (test code = BILT) mg/dL 0.0-1.0 BILIRUBIN DIRECT (test code = BILD) mg/dL 0.0-0.20 SGOT/AST (test code = AST) IUnit/L 15-37 SGPT/ALT (test code = ALT) IUnit/L 12-78 ALKALINE PHOSPHATASE TOTAL (test code = ALKP) IUnit/L 45-117 [id number] 11:01:00* Test Item Value Reference Range Interpretation Comments LIPASE (test code = LIP) U/L 73.0-393.0 URINALYSIS [id number] 10:59:00* Test Item Value Reference Range Interpretation Comments UA COLOR (test code = COLU) Light-Yellow YELLOW UA APPEARANCE (test code = APPU) CLEAR CLEAR UA GLUCOSE DIPSTICK (test code = DGLUU) NEGATIVE mg/dL NEGATIVE UA BILIRUBIN DIPSTICK (test code = BILU) NEGATIVE mg/dL NEGATIVE UA KETONE DIPSTICK (test code = KETU) NEGATIVE mg/dL NEGATIVE UA SPECIFIC GRAVITY (test code = SGU) 1.020 1.001-1.035 UA BLOOD DIPSTICK (test code = MERARY) Negative mg/dL NEGATIVE UA PH DIPSTICK (test code = JAISON) 6.5 5.0-8.0 UA PROTEIN DIPSTICK (test code = PROU) 20 (Trace) mg/dL NEGATIVE A UA UROBILINIOGEN DIPSTICK (test code = URO) Normal mg/dL NEGATIVE UA NITRITE DIPSTICK (test code = NOEL) NEGATIVE NEGATIVE UA LEUKOCYTE ESTERASE W REFLEX (test code = LEUUR) 75 Alonzo/uL (1+) Alonzo/uL NEGATIVE A UA WBC (test code = WBCU) 21-50 per HPF 0-5 A UA RBC (test code = RBCU) 0-2 #/HPF 0-5 UA EPITHELIAL CELLS (test code = EPIU) FEW per HPF FEW UA BACTERIA (test code = BACU) NONE SEEN #/HPF NONE UA MUCUS (test code = MUCU) FEW #/LPF FEW Urine Source? Clean CatchURINALYSIS [id number] 10:57:00* Test Item Value Reference Range Interpretation Comments UA COLOR (test code = COLU) Light-Yellow YELLOW UA APPEARANCE (test code = APPU) CLEAR CLEAR UA GLUCOSE DIPSTICK (test code = DGLUU) NEGATIVE mg/dL NEGATIVE UA BILIRUBIN DIPSTICK (test code = BILU) NEGATIVE mg/dL NEGATIVE UA KETONE DIPSTICK (test code = KETU) NEGATIVE mg/dL NEGATIVE UA SPECIFIC GRAVITY (test code = SGU) 1.020 1.001-1.035 UA BLOOD DIPSTICK (test code = MERARY) Negative mg/dL NEGATIVE UA PH DIPSTICK (test code = JAISON) 6.5 5.0-8.0 UA PROTEIN DIPSTICK (test code = PROU) 20 (Trace) mg/dL NEGATIVE A UA UROBILINIOGEN DIPSTICK (test code = URO) Normal mg/dL NEGATIVE UA NITRITE DIPSTICK (test code = NOEL) NEGATIVE NEGATIVE UA LEUKOCYTE ESTERASE W REFLEX (test code = LEUUR) 75 Alonzo/uL (1+) Alonzo/uL NEGATIVE A UA WBC (test code = WBCU) per HPF 0-5 UA RBC (test code = RBCU) per HPF 0-5 UA EPITHELIAL CELLS (test code = EPIU) per HPF Few UA BACTERIA (test code = BACU) per HPF NONE Urine Source? Clean CatchCBC W/O [id number] 10:56:00* Test Item Value Reference Range Interpretation Comments WHITE BLOOD CELL (test code = WBC) 5.2 K/mm3 4.5-12.5 N RED BLOOD CELL (test code = RBC) 3.99 mill/mm3 4.0-5.8 L HEMOGLOBIN (test code = HGB) 11.8 gram/dL 13.0-17.5 L HEMATOCRIT (test code = HCT) 36.0 % 42.0-52.0 L MEAN CELL VOLUME (test code = MCV) 90.2 fL 80-98 N MEAN CELL HGB (test code = MCH) 29.6 picogram 27.0-33.0 N MEAN CELL HGB CONCETRATION (test code = MCHC) 32.8 gram/dL 33.0-36. 0 L RED CELL DISTRIBUTION WIDTH (test code = RDW) 13.3 % 11.6-16. 2 N PLATELET COUNT (test code = PLT) 222 K/mm3 150-450 N MEAN PLATELET VOLUME (test code = MPV) 9.3 fL 6.7-11.0 N - CT ABD PELVIS W/O [id number] 10:29:00 Name: LAVONNE CONTRERAS [facility] : 1960 Age/S: 59 / M [address] [facility] Unit #: [id number] Loc: [place] [address] Phys: Katelyn Daigle NP Acct: [id number] Dis Date: Status: REG ER PHONE #: [phone] Exam Date: 01/21/2020 1001 FAX #: [phone] Reason: L flank pain EXAMS: CPT CODE: [id number] CT ABD PELVIS W/O CONT 96132 REASON FOR EXAM: L flank pain EXAM ORDER DATE: 01/21/2020 9:53 AM Ordering M.DAlysa: Katelyn Daigle NP PROCEDURE: Axial CT images were acquired through the abdomen/pelvis at 5 mm intervals. Sagittal and coronal reformatted images were generated. Automated exposure control was utilized for this reduction. Phases of contrast: None COMPARISON: CT of the abdomen and pelvis December 24, 2019 FINDINGS: The absence of IV contrast limits sensitivity of this exam for the detection of soft tissue pathology Visualized thorax: Mild subsegmental atelectasis is present in the dependent right lung base. Otherwise grossly normal Hepatobiliary system: Prior cholecystectomy. Hepatic parenchyma is grossly within normal limits Pancreas: Grossly normal Spleen: Grossly normal Adrenal glands: Grossly normal Genitourinary system: Penile implant is present. Kidneys and ureters and bladder are grossly within normal limits Gastrointestinal tract and appendix: Postsurgical changes of what appear to be segmental bowel resection with primary anastomosis are seen in the right lower abdomen. Stomach appears to be grossly within normal limits. Appendix is not clearly visualized and may be surgically absent Abdominal vascular structures: Retroaortic left renal vein Perito neum and retroperitoneum: No free fluid or free air. 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 There is also a soft tissue nodule in the pelvis () that measures up to 2.8 cm in size. This nodule was seen on a previous CT scan January 2019 at which time it measured 3.9 cm in size. Additionally this nodule is essentially unchanged from the most recent CT which suggests a benign etiology Musculoskeletal structures and abdominal wall: Degenerative changes are seen at L4-L5. Chronic post traumatic changes are seen in the pelvis and in the sacroiliac joints. Syndesmotic screw transfixing the sacroiliac joints is unchanged with no evidence of hardware loosening IMPRESSION: No acute intra-abdominal process. Specifically no stone or inflammatory changes of the left kidney or left ureter to explain the patient's left-sided flank pain. Soft tissue nodule in the pelvis as described above is unchanged from the most recent CT scan and was present more than one year prior suggesting benign etiology. Additional findings described above are unchanged from the previous e xam. Location: [facility] at 1029 Reported and signed by: Joe Vu MD CC: Katelyn Daigle NP; TONY ESPINAL Technologist:Tashia Odonnell,RT(R),CT CTDI: DLP: Tr nscb Date/Time: 01/21/2020 (1029) [email or web address] Orig Print D/ T: S: 01/21/2020 (7418) PAGE 2 Signed Report UA RFLX MICR CULT IF [id number] 10:41:00* Test Item Value Reference Range Interpretation Comments UA COLOR (test code = COLU) Yaritza Yellow A UA APPEARANCE (test code = APPU) Cloudy Clear A UA GLUCOSE DIPSTICK (test code = DGLUU) Negative Negative UA BILIRUBIN DIPSTICK (test code = BILU) Negative Negative UA KETONE DIPSTICK (test code = KETU) Negative mg/dL Negative UA SPECIFIC GRAVITY (test code = SGU) 1.021 <1.030 UA BLOOD DIPSTICK (test code = MERARY) Negative Negative UA PH DIPSTICK (test code = JAISON) 5.0 5.0-8.0 UA PROTEIN DIPSTICK (test code = PROU) 30 (1+) mg/dL Negative A UA UROBILINOGEN DIPSTICK (test code = URO) Negative mg/dL Negative UA NITRITE DIPSTICK (test code = NOEL) Negative Negative UA LEUKOCYTE ESTERASE DIPSTICK (test code = LEUU) 1+ Nega tive A UA WBC (test code = WBCUR) 51-100 /HPF <4-5 A > 10 WBC/HPF = PYURIA PRESENT URINE CULTURE PROCESSED UA RBC (test code = RBCU) 6-10 /HPF <4-5 A UA BACTERIA (test code = BACU) NEGATIVE /HPF None-Rare UA SQUAMOUS CELLS (test code = SQU) 0-5 (RARE) /HPF 0-5 (RARE) UA MUCUS (test code = MUCU) Rare /LPF <Rare UA YEAST (BUDDING) (test code = YEASTUBD) 1+ /HPF None A SOURCE OF URINE: VOIDEDIndication for culture: Flank PainBASIC METABOLIC [id number] 10:24:00* Test Item Value Reference Range Interpretation Comments SODIUM (test code = NA) 137 mmol/L 137-145 N POTASSIUM (test code = K) 4.2 mmol/L 3.4-5.0 N CHLORIDE (test code = CL) 105 mmol/L 98-107 N CARBON DIOXIDE (test code = CO2) 24 mmol/L 22-30 N GLUCOSE (test code = GLU) 105 mg/dL 74-106 N BLOOD UREA NITROGEN (test code = BUN) 13 mg/dL 9-20 N GLOMERULAR FILTRATION RATE (test code = GFR) 106 >60 The estimated glomerular filtration rate is computed usingpatient race, age (>18), sex, and serum creatinine. If anyof the needed data elements are missing the Laboratory cannot compute an estimation of the glomerular filtration rate. CREATININE (test code = CREAT) 0.8 mg/dL 0.7-1.3 N CALCIUM (test code = CA) 8.8 mg/dL 8.4-10.2 N LIVER FUNCTION [id number] 10:24:00* Test Item Value Reference Range Interpretation Comments TOTAL PROTEIN (test code = PROT) 6.2 g/dL 6.3-8.2 L ALBUMIN (test code = ALB) 3.8 g/dL 3.5-5.0 N BILIRUBIN TOTAL (test code = BILT) 0.4 mg/dL 0.2-1.3 N "A positive bias may occur for patients taking Eltrombopag(a bone marrow stimulant used to treat thrombocytopenia andaplastic anemia)." BILIRUBIN CONJUGATED (test code = BILCON) 0 mg/dL 0-0.3 N "A positive bias may occur for patients taking Eltrombopag(a bone marrow stimulant used to treat thrombocytopenia andaplastic anemia)." CONJUGATED BILIRUBIN IS THE REPLACEMENT ASSAY FOR DIRECTBILIRUBIN. BILIRUBIN UNCONJUGATED (test code = BILUNC) 0.1 mg/dL 0-1.1 N SGOT/AST (test code = AST) 28 U/L 15-46 N SGPT/ALT (test code = ALT) 27 U/L 0-34 N ALKALINE PHOSPHATASE (test code = ALKP) 71 U/L 38-126 N [id number] 10:24:00* Test Item Value Reference Range Interpretation Comments LIPASE (test code = LIP) 235 U/L 23-300 N - CT ABD PELVIS W/O [id number] 10:13:00 [place]: St: REG Name: LAVONNE HEALY [facility] : 2 Age/S: 59/M [address] Unit: [id number] Loc: [place] [address] Phys: Kerry Navas ANP Acct: [id number] Dis Date: Status: REG ER PHONE #: [phone] Exam Date: 01/01/2020 0955 FAX #: [phone] Reason: LEFT FLANK PAIN EXAMS: CPT CODE: [id number] CT ABD PELVIS W/O CONT 42124 HISTORY: Left flank pain, kidney problems. CT abdomen and pelvis, unenhanced. Reformatted s agittal and coronal images. COMPARISON: November 10, 2019, a cont rast enhanced study. Automated exposure control, iterative reconst ruction technique, and/or adjustment of mA and/or kV according to patient' s size was utilized for optimum radiation dose reduction. Neither intravenous nor oral contrast is requested for the exam. Significa nt pathology may be obscured. The study includes some of the lung bases, which appear to be clear. No pericardial or pleural fluid can be fo und. The kidneys appear to be symmetric with no evidence of hydron ephrosis, stones or asymmetric stranding. Ureters are normal distally and traced to the bladder. No bladder calculi. The liver is sm ooth margins and similar appearance. Cholecystectomy performed. Spleen intact. Normal pancreas appearance. Adrenals intact. Normal aortic diameter. No significant atherosclerotic calcifications. No tiarra opathy in the mesentery or retroperitoneum. The stomach contains m oderate amount of food. Small bowel intact. Large bowel with appendectom y clips at the cecum. The transverse colon with mucosal edema that may soares pport inflammatory change. No fluid accumulation nor edema in the adjacen t mesentery. Small partially calcified nodular density in the right mesen isha, stable. The study of the pelvis with rectosigmoid impaction. Some diverticula seen in the left colon. Prostate intact. A penile reservoir seen left iliac region. Right inguinal hernia repair. No free fluid in the pelvis. The right abdominal wall with a pre vious implant reservoir. Bony structures with no evidence of bony destructive or sclerotic PAGE 1 Signed Report (CONTINUED) Manuel s: CAT St: REG Name: LAVONNE CONTRERAS [facility] : 1960 Age/S: 59/M [address] Unit: [id number] Loc: [place] [address] Ph ys: Kerry Navas Acct: C [id number] Dis Date: Status: REG ER PHONE #: [phone] Exam Date: 01/01/2020 0923 FAX #: [phone] Reason: LEFT FLANK PAIN EXAMS: CPT CODE: [id number] CT ABD PELVIS W/O CONT 21442 <Continued> change. Old trauma of the SI joints with the right SI joint fixed by hardware, both joints fused. Deformity of the pubic rami, as well. Reformatted images do not show any renal calculi or other suspicious findings. Again some fatty changes in the transverse colon with mucosal thickening may indicate some inflammatory changes or old chronic disease. IMPRESSION: Limited Study. No acute renal abnormality. No ki dney stones seen. Transverse colonic thickening/fatty changes likely chronic disease changes but correlate for any colonic sym ptoms. Old traumatic changes in the pelvis L ocation: U19 at 1013 Reported and signed by: Tony Morales M.D. CC: Technologist: Harleen Meier; FINESSE MUKHERJEE Trnscrd Dt/Tm: 01/01/2020 (1013) [email or web address] Orig Print D/T: S: 01/01/2020 (1017 PAGE 2 Signed Report CBC W/AUTO [id number] 10:03:00* Test Item Value Reference Range Interpretation Comments WHITE BLOOD CELL (test code = WBC) 7.0 x10 3/uL 5.0-12.0 N RED BLOOD CELL (test code = RBC) 4.34 x10 6/uL 4.70-6.10 L HEMOGLOBIN (test code = HGB) 13.1 g/dL 14.0-18.0 L HEMATOCRIT (test code = HCT) 41.1 % 37.0-49.0 N MEAN CELL VOLUME (test code = MCV) 95 fL 80-94 H MEAN CELL HGB (test code = MCH) 30.2 pg 27-31 N MEAN CELL HGB CONCENTRATION (test code = MCHC) 31.9 g/dL 33-37 L RED CELL DISTRIBUTION WIDTH (test code = RDW) 13.2 % 11.5-15. 5 N PLATELET COUNT (test code = PLT) 236 x10 3/uL 130-400 N MEAN PLATELET VOLUME (test code = MPV) 9.2 fL 9.4-16.4 L NEUTROPHIL % (test code = NT%) 57.9 % 43-65 N IMMATURE GRANULOCYTE % (test code = IG%) 1.4 % 0.0-2.0 N LYMPHOCYTE % (test code = LY%) 29.2 % 20.5-45.5 N MONOCYTE % (test code = MO%) 9.1 % 5.5-11.7 N EOSINOPHIL % (test code = EO%) 1.3 % 0.9-2.9 N BASOPHIL % (test code = BA%) 1.1 % 0.2-1.0 H NUCLEATED RBC % (test code = NRBC%) 0.3 % 0-1.0 N NEUTROPHIL # (test code = NT#) 4.05 x10 3/uL 2.2-4.8 N IMMATURE GRANULOCYTE # (test code = IG#) 0.10 x10 3/uL 0-0.03 H LYMPHOCYTE # (test code = LY#) 2.05 x10 3/uL 1.3-2.9 N MONOCYTE # (test code = MO#) 0.64 x10 3/uL 0.3-0.8 N EOSINOPHIL # (test code = EO#) 0.09 x10 3/uL 0.0-0.2 N BASOPHIL # (test code = BA#) 0.08 x10 3/uL 0.0-0.1 N CARDIAC ENZYMES [id number] 22:47:00* Test Item Value Reference Range Interpretation Comments TROPONIN-I (test code = TROPI) < 0.012 ng/mL 0.012-0.033 L Please be advised of the updated reference ranges for the new Chemistry instrumentation. VITROS TROPONIN I CRITERIANORMAL PATIENT W/O CIRCULATING TNI: 0.012-0.033 ng/mLCIRCULATING TNI PRESENT: 0.034-0.119 ng/mL(MAY BE AT RISK OF AMI)AMI DIAGNOSTIC CUTOFF: >/= 0.120 ng/mL~~~~~~~~~~~~~~~~~~~~~~~~~~~~~~~~~~~~~~~~~~~~~~~~~~~~~~~~~~~The use of serial sampling and testing protocol is arecommended practice.An elevated troponin level alone is often not sufficient fordiagnosis of myocardial infarction. Troponin results obtained by different assays may vary.Evaluation of the extent of myocardial damage based onincrease of troponin would be valid only if similarmethodology is used.~~~~~~~~~~~~~~~~~~~~~~~~~~~~~~~~~~~~~~~~~~~~~~~~~~~~~~~~~~~ UA RFLX MICR CULT IF [id number] 22:22:00* Test Item Value Reference Range Interpretation Comments UA COLOR (test code = COLU) Yellow Yellow UA APPEARANCE (test code = APPU) Slightly-Cloudy Clear UA GLUCOSE DIPSTICK (test code = DGLUU) Negative Negative UA BILIRUBIN DIPSTICK (test code = BILU) Negative Negative UA KETONE DIPSTICK (test code = KETU) Negative mg/dL Negative UA SPECIFIC GRAVITY (test code = SGU) 1.056 <1.030 A UA BLOOD DIPSTICK (test code = MERARY) Negative Negative UA PH DIPSTICK (test code = JAISON) 7.0 5.0-8.0 UA PROTEIN DIPSTICK (test code = PROU) NEGATIVE mg/dL Negative UA UROBILINOGEN DIPSTICK (test code = URO) Negative mg/dL Negative UA NITRITE DIPSTICK (test code = NOEL) Negative Negative UA LEUKOCYTE ESTERASE DIPSTICK (test code = LEUU) 1+ Nega tive A UA WBC (test code = WBCUR) 31-40 /HPF <4-5 A > 10 WBC/HPF = PYURIA PRESENT URINE CULTURE PROCESSED UA RBC (test code = RBCU) 6-10 /HPF <4-5 A UA BACTERIA (test code = BACU) Rare /HPF None-Rare UA SQUAMOUS CELLS (test code = SQU) 6-15 (FEW) /HPF 0-5 (RARE) A UA MUCUS (test code = MUCU) Rare /LPF <Rare UA YEAST (BUDDING) (test code = YEASTUBD) Rare /HPF None A SOURCE OF URINE: CLEAN CATCHIndication for culture: Dysuria/FrequencyLIPID PROFILE (CORONARY RISK)2019-11-10 18:52:00* Test Item Value Reference Range Interpretation Comments TRIGLYCERIDES (test code = TRIG) 107 mg/dL TRIGLYCERIDES REFERENCE RANGE:Normal: <150 mg/dLBorderline High: 150-199 mg/dLHigh: 200-499 mg/dLVery High: >=500 mg/dL CHOLESTEROL (test code = CHOL) 102 mg/dL CHOLESTEROL REFERENCE RANGE:DESIRABLE: < 200 mg/dLBORDERLINE: 200-239 mg/dLHIGH: >=240 mg/dL HDL CHOLESTEROL (test code = HDL) 50 mg/dL 40-59 N LIPOPROTEIN LDL (test code = LDLC) 37.74 mg/dL 32-99 N CORONARY RISK FACTOR (test code = RISK) 2.04 CHOL/HDL RISK MALE: 1/2 AVG 3.43 FEMALE: 1/2 AVG 3.27 AVG 4.97 AVG 4.44 2X AVG 9.55 2X AVG 7.05 3X AVG 23.39 3X AVG 11.04~~~~~~~~~~~~~~~~~~~~~~~~~~~~~~~~~~~~~~~~~~~~~~~~~~~~~~~~~~~~National Cholesterol Education (NCEP) Guidelines:~~~~~~~~~~~~~~~~~~~~~~~~~~~~~~~~~~~~~~~~~~~~~~~~~~~~~~~~~~~~ HDL Cholesterol<40mg/dL: HDL Cholesterol (Major risk factor for CHD)>60mg/dL: HDL Cholesterol (Negative risk factor for CHD)40-59mg/dL: Borderline Risk LDL Cholesterol<100mg/dL: Desirable LDL-C vklfxcgcovjtf202-400tv/dL: Borderline High Risk LDL-C apvlcdjrtnoxf072-505zj/dL: High risk LDL-C concentration HDL-LDL Cholesterol is affected by a number of factors suchas smoking, age and sex.~~~~~~~~~~~~~~~~~~~~~~~~~~~~~~~~~~~~~~~~~~~~~~~~~~~~~~~~~~~~ [id number] 18:52:00* Test Item Value Reference Range Interpretation Comments MAGNESIUM (test code = MAG) 2.2 mg/dL 1.6-2.3 N CARDIAC ENZYMES [id number] 18:44:00* Test Item Value Reference Range Interpretation Comments TROPONIN-I (test code = TROPI) < 0.012 ng/mL 0.012-0.033 L Please be advised of the updated reference ranges for the new Chemistry instrumentation. VITROS TROPONIN I CRITERIANORMAL PATIENT W/O CIRCULATING TNI: 0.012-0.033 ng/mLCIRCULATING TNI PRESENT: 0.034-0.119 ng/mL(MAY BE AT RISK OF AMI)AMI DIAGNOSTIC CUTOFF: >/= 0.120 ng/mL~~~~~~~~~~~~~~~~~~~~~~~~~~~~~~~~~~~~~~~~~~~~~~~~~~~~~~~~~~~The use of serial sampling and testing protocol is arecommended practice.An elevated troponin level alone is often not sufficient fordiagnosis of myocardial infarction. Troponin results obtained by different assays may vary.Evaluation of the extent of myocardial damage based onincrease of troponin would be valid only if similarmethodology is used.~~~~~~~~~~~~~~~~~~~~~~~~~~~~~~~~~~~~~~~~~~~~~~~~~~~~~~~~~~~ LACTIC [id number] 18:33:00* Test Item Value Reference Range Interpretation Comments LACTIC ACID (test code = LACT) 2.0 mmol/L 0.7-2.0 N - CT ABD PELVIS [id number] 16:39:00 [place]: St: REG Name: LAVONNE HEALY [facility] [place] : 2 Age/S: 59/M [address] Unit: [id number] Loc: [place] [address] Phys: Jim Brito MD Acct: [id number] Dis Date: Status: REG ER PHONE #: [phone] Exam Date: 11/10/2019 1630 FAX #: [phone] Reason: left abd pain EXAMS: CPT CODE: [id number] CT ABD PELVIS W/CONT 95876 CT Abdomen and Pelvis with contrast. Location: W1 Clinical indication: 59-year-old with left abdominal pain Comparison: January 28, 2019 Technique: Computed axial images were obtained from the diaphragms through the pubic symphysis following IV administration of 100 mL Isovue-300. Up to date CT equipment and radiation dose reduction technique were utilized. Findings: Abdomen: Lung bases are clear. The li jennifer, spleen, adrenal glands, pancreas, and kidneys are without acute abnor mality. The stomach is distended with fluid and air. There is moderate s tool throughout the colon. No bowel obstruction. There has been prior soares rgery, with multiple suture lines noted in the right lower quadrant. Pelvis: A penile prosthesis is present, with a reservoir in the left inguinal region as well as the right ventral pelvic wall. Urinary valentino dder is partially distended. The prostate is either small or has been rem cinthya. Please correlate with history. No acute osseous abnormality. Impression: 1. The stomach is distended with air and ingested material. 2. Otherwise, no acute abnormality to account fo r patient's symptoms. at 163 Reported and signed by: Mike Forbes MD CC: Technmaisha gist: JAYRO AGUILAR; Hannah Ford [facility] Dt/Tm: 11/2019 (0278) [email or web address] Orig Print D/T: S: 11/10/2019 ( 1582 PAGE 1 Signed Report LACTIC [id number] 14:26:00* Test Item Value Reference Range Interpretation Comments LACTIC ACID (test code = LACT) 3.1 mmol/L 0.7-2.0 HH Critical Value reported toFirst Name:[id number] Last Name:RESULTS READ BACK AND VERIFIEDby NURIA, on 11/10/19, @ 8545. BASIC METABOLIC [id number] 14:04:00* Test Item Value Reference Range Interpretation Comments SODIUM (test code = NA) 138 mmol/L 137-145 N POTASSIUM (test code = K) 4.3 mmol/L 3.4-5.0 N CHLORIDE (test code = CL) 106 mmol/L 98-107 N CARBON DIOXIDE (test code = CO2) 23 mmol/L 22-30 N GLUCOSE (test code = GLU) 135 mg/dL 74-106 H BLOOD UREA NITROGEN (test code = BUN) 24 mg/dL 9-20 H GLOMERULAR FILTRATION RATE (test code = GFR) 123 >60 The estimated glomerular filtration rate is computed usingpatient race, age (>18), sex, and serum creatinine. If anyof the needed data elements are missing the Laboratory cannot compute an estimation of the glomerular filtration rate. CREATININE (test code = CREAT) 0.7 mg/dL 0.7-1.3 N CALCIUM (test code = CA) 8.6 mg/dL 8.4-10.2 N LIVER FUNCTION [id number] 14:04:00* Test Item Value Reference Range Interpretation Comments TOTAL PROTEIN (test code = PROT) 6.2 g/dL 6.3-8.2 L ALBUMIN (test code = ALB) 4.0 g/dL 3.5-5.0 N BILIRUBIN TOTAL (test code = BILT) 0.3 mg/dL 0.2-1.3 N BILIRUBIN CONJUGATED (test code = BILCON) 0 mg/dL 0-0.3 N ~~~~~~~~~~~~~~~~~~~~~~~~~~~~~~~~~~~~~~~~~~~~~~~~~~~~~~~~~~~~CONJUGATED BILIRUBIN IS THE REPLACEMENT ASSAY FOR DIRECTBILIRUBIN.~~~~~~~~~~~~~~~~~~~~~~~~~~~~~~~~~~~~~~~~~~~~~~~~~~~~~~~~~~~~ BILIRUBIN UNCONJUGATED (test code = BILUNC) 0.1 mg/dL 0-1.1 N SGOT/AST (test code = AST) 20 U/L 15-46 N SGPT/ALT (test code = ALT) 28 U/L 13-69 N ALKALINE PHOSPHATASE (test code = ALKP) 117 U/L 38-126 N [id number] 14:04:00* Test Item Value Reference Range Interpretation Comments LIPASE (test code = LIP) 438 U/L 23-300 H NT PRO-BRAIN NATRIURETIC [id number] 14:04:00* Test Item Value Reference Range Interpretation Comments NT PRO-BRAIN NATRIURETIC PEPTI (test code = PROBNP) 22.0 pg/mL 0- 299 N ~~~~~~~~~~~~~~~~~~~~~~~~~~~~~~~~~~~~~~~~~~~~~~~~~~~~~~~~~~~~NT PRO-BNP IS THE REPLACEMENT ASSAY FOR BNP.~~~~~~~~~~~~~~~~~~~~~~~~~~~~~~~~~~~~~~~~~~~~~~~~~~~~~~~~~~~~RULE-IN CUT POINTS FOR PATIENTS WITH SUSPECTED ACUTECONGESTIVE HEART FAILURE:<50 yrs old: >450 pg/mL50-75 yrs old: >900 pg/mL>75 yrs old: >1800 pg/mLA positive bias may occur on patients taking BIOTINsupplements. COVID 19 INHOUSE [id number] 14:04:00* Test Item Value Reference Range Interpretation Comments COVID 19 INHOUSE AG (test code = [id number]) NEGATIVE Negative BASIC METABOLIC [id number] 13:55:00* Test Item Value Reference Range Interpretation Comments SODIUM (test code = NA) 138 mmol/L 137-145 N POTASSIUM (test code = K) 4.3 mmol/L 3.4-5.0 N CHLORIDE (test code = CL) 106 mmol/L 98-107 N CARBON DIOXIDE (test code = CO2) 23 mmol/L 22-30 N GLUCOSE (test code = GLU) 135 mg/dL 74-106 H BLOOD UREA NITROGEN (test code = BUN) 24 mg/dL 9-20 H GLOMERULAR FILTRATION RATE (test code = GFR) 123 >60 The estimated glomerular filtration rate is computed usingpatient race, age (>18), sex, and serum creatinine. If anyof the needed data elements are missing the Laboratory cannot compute an estimation of the glomerular filtration rate. CREATININE (test code = CREAT) 0.7 mg/dL 0.7-1.3 N CALCIUM (test code = CA) 8.6 mg/dL 8.4-10.2 N LIVER FUNCTION [id number] 13:55:00* Test Item Value Reference Range Interpretation Comments TOTAL PROTEIN (test code = PROT) 6.2 g/dL 6.3-8.2 L ALBUMIN (test code = ALB) 4.0 g/dL 3.5-5.0 N BILIRUBIN TOTAL (test code = BILT) 0.3 mg/dL 0.2-1.3 N BILIRUBIN CONJUGATED (test code = BILCON) 0 mg/dL 0-0.3 N ~~~~~~~~~~~~~~~~~~~~~~~~~~~~~~~~~~~~~~~~~~~~~~~~~~~~~~~~~~~~CONJUGATED BILIRUBIN IS THE REPLACEMENT ASSAY FOR DIRECTBILIRUBIN.~~~~~~~~~~~~~~~~~~~~~~~~~~~~~~~~~~~~~~~~~~~~~~~~~~~~~~~~~~~~ BILIRUBIN UNCONJUGATED (test code = BILUNC) 0.1 mg/dL 0-1.1 N SGOT/AST (test code = AST) 20 U/L 15-46 N SGPT/ALT (test code = ALT) 28 U/L 13-69 N ALKALINE PHOSPHATASE (test code = ALKP) 117 U/L 38-126 N [id number] 13:55:00* Test Item Value Reference Range Interpretation Comments LIPASE (test code = LIP) 438 U/L 23-300 H NT PRO-BRAIN NATRIURETIC [id number] 13:55:00* Test Item Value Reference Range Interpretation Comments NT PRO-BRAIN NATRIURETIC PEPTI (test code = PROBNP) pg/mL 0- 299 BASIC METABOLIC [id number] 13:54:00* Test Item Value Reference Range Interpretation Comments SODIUM (test code = NA) 138 mmol/L 137-145 N POTASSIUM (test code = K) 4.3 mmol/L 3.4-5.0 N CHLORIDE (test code = CL) 106 mmol/L 98-107 N CARBON DIOXIDE (test code = CO2) 23 mmol/L 22-30 N GLUCOSE (test code = GLU) 135 mg/dL 74-106 H BLOOD UREA NITROGEN (test code = BUN) 24 mg/dL 9-20 H GLOMERULAR FILTRATION RATE (test code = GFR) 123 >60 The estimated glomerular filtration rate is computed usingpatient race, age (>18), sex, and serum creatinine. If anyof the needed data elements are missing the Laboratory cannot compute an estimation of the glomerular filtration rate. CREATININE (test code = CREAT) 0.7 mg/dL 0.7-1.3 N CALCIUM (test code = CA) 8.6 mg/dL 8.4-10.2 N LIVER FUNCTION [id number] 13:54:00* Test Item Value Reference Range Interpretation Comments TOTAL PROTEIN (test code = PROT) 6.2 g/dL 6.3-8.2 L ALBUMIN (test code = ALB) 4.0 g/dL 3.5-5.0 N BILIRUBIN TOTAL (test code = BILT) 0.3 mg/dL 0.2-1.3 N BILIRUBIN CONJUGATED (test code = BILCON) 0 mg/dL 0-0.3 N ~~~~~~~~~~~~~~~~~~~~~~~~~~~~~~~~~~~~~~~~~~~~~~~~~~~~~~~~~~~~CONJUGATED BILIRUBIN IS THE REPLACEMENT ASSAY FOR DIRECTBILIRUBIN.~~~~~~~~~~~~~~~~~~~~~~~~~~~~~~~~~~~~~~~~~~~~~~~~~~~~~~~~~~~~ BILIRUBIN UNCONJUGATED (test code = BILUNC) 0.1 mg/dL 0-1.1 N SGOT/AST (test code = AST) 20 U/L 15-46 N SGPT/ALT (test code = ALT) 28 U/L 13-69 N ALKALINE PHOSPHATASE (test code = ALKP) 117 U/L 38-126 N [id number] 13:54:00* Test Item Value Reference Range Interpretation Comments LIPASE (test code = LIP) U/L 23-300 NT PRO-BRAIN NATRIURETIC [id number] 13:54:00* Test Item Value Reference Range Interpretation Comments NT PRO-BRAIN NATRIURETIC PEPTI (test code = PROBNP) pg/mL 0- 299 PROTHROMBIN [id number] 13:40:00* Test Item Value Reference Range Interpretation Comments PROTHROMBIN TIME PATIENT (test code = PTP) 9.7 SECONDS 9.2-12.1 N INTERNATIONAL NORMAL RATIO (test code = INR) 0.9 The INR is to be used only for monitoring ORAL ANTICOAGULANTTHERAPY. Indication INR Value1. Prophylaxis/treatment of: Venous Thrombosis, Pulmonary Embolism 2.0 - 3.02. Prevention of systemic embolism from: Tissue heart valves 2.0 - 3.0 Acute myocardial infarction (to present systemic embolism)* 2.0 - 3.0 Valvular heart disease 2.0 - 3.0 Atrial fibrillation 2.0 - 3.03. Mechanical prosthetic valves (high risk) 2.5 - 3.5 * If oral anticoagulant therapy is elected to preventrecurrent myocardial infarction, an INR of 2.5-3.5 isrecommended, consistent with Food and Drug Administrationrecommendations. THROMBOPLASTIN TIME [id number] 13:40:00* Test Item Value Reference Range Interpretation Comments THROMBOPLASTIN TIME PARTIAL (test code = PTT) 24.8 SECONDS 23.4-37. 0 N Therapeutic Range for Heparin EFFECTIVE 11/12/12 Heparin IU/mL aPTT Seconds0.3 64.30.7 88.8 CBC W/AUTO [id number] 13:30:00* Test Item Value Reference Range Interpretation Comments WHITE BLOOD CELL (test code = WBC) 7.3 x10 3/uL 5.0-12.0 N RED BLOOD CELL (test code = RBC) 4.16 x10 6/uL 4.70-6.10 L HEMOGLOBIN (test code = HGB) 12.7 g/dL 14.0-18.0 L HEMATOCRIT (test code = HCT) 38.1 % 37.0-49.0 N MEAN CELL VOLUME (test code = MCV) 92 fL 80-94 N MEAN CELL HGB (test code = MCH) 30.5 pg 27-31 N MEAN CELL HGB CONCENTRATION (test code = MCHC) 33.3 g/dL 33-37 N RED CELL DISTRIBUTION WIDTH (test code = RDW) 13.7 % 11.5-15. 5 N PLATELET COUNT (test code = PLT) 206 x10 3/uL 130-400 N MEAN PLATELET VOLUME (test code = MPV) 9.4 fL 9.4-16.4 N NEUTROPHIL % (test code = NT%) 70.6 % 43-65 H IMMATURE GRANULOCYTE % (test code = IG%) 1.1 % 0.0-2.0 N LYMPHOCYTE % (test code = LY%) 17.8 % 20.5-45.5 L MONOCYTE % (test code = MO%) 8.9 % 5.5-11.7 N EOSINOPHIL % (test code = EO%) 0.8 % 0.9-2.9 L BASOPHIL % (test code = BA%) 0.8 % 0.2-1.0 N NUCLEATED RBC % (test code = NRBC%) 0.0 % 0-1.0 N NEUTROPHIL # (test code = NT#) 5.15 x10 3/uL 2.2-4.8 H IMMATURE GRANULOCYTE # (test code = IG#) 0.08 x10 3/uL 0-0.03 H LYMPHOCYTE # (test code = LY#) 1.30 x10 3/uL 1.3-2.9 N MONOCYTE # (test code = MO#) 0.65 x10 3/uL 0.3-0.8 N EOSINOPHIL # (test code = EO#) 0.06 x10 3/uL 0.0-0.2 N BASOPHIL # (test code = BA#) 0.06 x10 3/uL 0.0-0.1 N TROPONIN I [id number] 13:17:00* Test Item Value Reference Range Interpretation Comments TROPONIN I RAPID (test code = TROPIRAP) 0.01 ng/mL 0.00-0.079 N ISTAT TROPONIN I CRITERIA0.00-0.08 ng/mL - Negative>0.08 ng/mL - Positive The use of serial sampling and testing protocol is arecommended practice.An elevated troponin level alone is often not sufficient fordiagnosis of myocardial infarction. Troponin results obtained by different assays may vary.Evaluation of the extent of myocardial damage based onincrease of troponin would be valid only if similarmethodology is used. - XR CHEST 1 [id number] 12:47:00 [place]: St: REG Name: Milli MACIASLAVONNEShad BOSWELL [facility] : [birth year] 63 Age/S: 59/M [address] Unit #: [id number] Loc: [place] [address] Phys: Jim Brito MD Acct: [id number] Dis Date: Status: REG ER PHONE #: [phone] Exam Date: 11/10/2019 3764 FAX #: [phone] Reason: sob EXAMS: CPT CODE: [id number] XR CHEST 1 V 80730 EXAM: CHEST ONE VIEW INDICATION: Shortness of breath LOCATION: B2 COMPAR WILLIAN: October 31, 2019 TECHNIQUE: AP view of the chest FINDINGS: The heart size is normal. The lungs are clear bilaterally. Th e pulmonary vasculature is normal. No pneumothorax or pleural effusion is identified. The osseous structures are normal. IMPRESSIO N: No acute cardiopulmonary process. Electronicall y Signed by Edilia Car MD on 11/10/2019 at 1247 Repor mi and signed by: Edilia Car MD CC: Technologist: LEIDY GRANADOS RT (R) Trnscrd Date/Time/By: 11/10/2019 (4694) : By: Tanna [id number] PAGE 1 Signed Report [place]: St: REG Name: DIANELAVONNE BOSWELL [facility] : 1960 Age/S: 59/M [address] Unit #: [id number] Loc: [place] [address] Phys: Rafi Brito MD Acct: [id number] Dis Date: Status: REG ER PHONE #: [phone] Exam Date: 11/10/2019 1251 FAX #: [phone] Reason: sob EXAMS: CPT CODE: [id number] XR CHEST 1 V 98323 <Continued> Orig Print D/T: S: 11/10/2019 (1193) PAGE 2 Signed Report VITAMIN [id number] 18:08:00* Test Item Value Reference Range Interpretation Comments VITAMIN B12 (test code = VITB12) 176 pg/mL 193-986 L THYROID PROFILE [id number] 18:08:00* Test Item Value Reference Range Interpretation Comments T3 UPTAKE (test code = T3UP) 36.0 % 30.0-40.0 N T4 (THYROXINE) (test code = T4) 6.9 ug/dL 4.5-13.9 N T7 (FREE THYROXINE INDEX) (test code = T7) 2.48 FTI 1.3-5.1 N THYROID STIMULATING HORMONE (test code = TSH) 1.140 uIU/mL 0.36-3.7 4 N TSH REFERENCE RANGES: EUTHYROID: 0.35 - 4.3 mIU/mL HYPO : > 5.5 mIU/mL HYPER : < 0.35 mIU/mL VIT B1 WHOLE [id number] 18:08:00* Test Item Value Reference Range Interpretation Comments VIT B1 WHOLE BLOOD (test code = DCDF4HL) 119.4 nmol/L 66.5-200.0 Performed At: [address] [id number] Sanjai MD Ph:[phone] AB HIV 1 15:11:00* Test Item Value Reference Range Interpretation Comments AB HIV 1 2 (test code = [id number]) Nonreactive NonReactive It is recognized that currently available assays for thedetection of antibodies to HIV-1 and/or HIV-2 may notdetect all infected individuals. A negative test result doesnot exclude the possibility of exposure to or infection withHIV. HIV antibodies may be undetectable in some stages ofthe infection and in some clinical conditions. VITAMIN [id number] 07:50:00* Test Item Value Reference Range Interpretation Comments VITAMIN B12 (test code = VITB12) 176 pg/mL 193-986 L THYROID PROFILE [id number] 07:50:00* Test Item Value Reference Range Interpretation Comments T3 UPTAKE (test code = T3UP) 36.0 % 30.0-40.0 N T4 (THYROXINE) (test code = T4) 6.9 ug/dL 4.5-13.9 N T7 (FREE THYROXINE INDEX) (test code = T7) 2.48 FTI 1.3-5.1 N THYROID STIMULATING HORMONE (test code = TSH) 1.140 uIU/mL 0.36-3.7 4 N TSH REFERENCE RANGES: EUTHYROID: 0.35 - 4.3 mIU/mL HYPO : > 5.5 mIU/mL HYPER : < 0.35 mIU/mL VIT B1 WHOLE [id number] 07:50:00* Test Item Value Reference Range Interpretation Comments VIT B1 WHOLE BLOOD (test code = TXQY3II) nmol/L 87-280 - CTA CHEST FOR [id number] 11:19:00 Name: LAVONNE CONTRERAS [facility] : 1960 Age/S: 59 / M [address] Unit #: [id number] Loc: [place] [address] Phys: Laurent Fletcher MD Acct: [id number] Dis Date: Status: ADM IN PHONE #: [phone] Exam Date: 11/01/2019 1057 FAX #: [phone] Reason: Shortness of breath / Lung disease EXAMS: CPT CODE: [id number] [place] [address] HISTORY: Shortness of breath. COMPARISON: CTA chest from October 15, 2019. Location: TH. CTA CHEST: 3-D images. 100 and normal of Isovue-370. Automated exposure control. Unremarkable pulmonary arteries. Suboptimal contrast bolus. No pulmonary embolism. Unremarkable aorta without aneurysm or dissection. Well-opacified SVC and the visualized neck vasculature. Unremarkable thyroid glands. Esophageal wall is not thickened. No pathologic adenopathy. Cardiomegaly without pericardial effusion. Visualized upper abdomen is unremarkable. Subcutaneous tissues and the musculature are normal in appearance. No lytic or blastic lesions are noted within the bony skeleton. The lungs are clear of infiltrates, effusion or congestion. No bronchiectasis, honeycombing or fibrosis or endobronchial lesions. IMPRESSION: No pulmonary embolism with unremarkable aorta. Suboptimal contrast bolus. Lungs are clear with dependent change. No pathologic adenopath y. at 1119 Reported and signed by: Jorge Almeida M.D. CC: Laurent Fletcher MD; Jann Gifford DO Technologist:Teri lozoya RT(R),CT; CTDI: DLP: Trnscb Date/Time: 11/01/2019 (111 9) t.SDR.TH4 Orig Print D/T: S: 11/01/2019 (1122) PA GE 1 Signed Report THROMBOPLASTIN TIME [id number] 11:06:00* Test Item Value Reference Range Interpretation Comments THROMBOPLASTIN TIME PARTIAL (test code = PTT) 44.8 seconds 23.0-37. 0 H IS PATIENT ON ANTICOAGULANTS? YLIST ANTICOAGULANTS HEPARINSPECIMEN COMMENTS: PLEASE DRAW AT 10:55COMMENTS TO COLLECTION SPECIALIST: PLEASE DRAW AT 10:55COMPREHENSIVE METABOLIC [id number] 11:05:00* Test Item Value Reference Range Interpretation Comments SODIUM (test code = NA) 143 mmol/L 136-145 N POTASSIUM (test code = K) 4.1 mmol/L 3.5-5.1 N CHLORIDE (test code = CL) 110.0 mmol/L 98-107 H CARBON DIOXIDE (test code = CO2) 25.0 mmol/L 21-32 N ANION GAP (test code = GAP) 12.1 10-20 N GLUCOSE (test code = GLU) 127 mg/dL 74-106 H BLOOD UREA NITROGEN (test code = BUN) 17 mg/dL 7-18 N GLOMERULAR FILTRATION RATE (test code = GFR) > 60 mL/min >=60 Estimated GFR by using Modified MDRD formula.Chronic kidney disease is defined as either kidney damageor GFR <60 mL/min/1.73 m2 for >3 months. CREATININE (test code = CREAT) 0.90 mg/dL 0.7-1.3 N BUN/CREATININE RATIO (test code = BUN/CREA) 18.6 10-20 N TOTAL PROTEIN (test code = PROT) 6.2 gram/dL 6.4-8.2 L ALBUMIN (test code = ALB) 3.6 g/dL 3.4-5.0 N GLOBULIN (test code = GLOB) 2.6 gram/dL 2.7-4.2 L ALBUMIN/GLOBULIN RATIO (test code = A/G) 1.4 0.75-1.50 N CALCIUM (test code = CA) 8.9 mg/dL 8.5-10.1 N BILIRUBIN TOTAL (test code = BILT) 0.30 mg/dL 0.0-1.0 N SGOT/AST (test code = AST) 21 IUnit/L 15-37 N SGPT/ALT (test code = ALT) 35 IUnit/L 12-78 N ALKALINE PHOSPHATASE TOTAL (test code = ALKP) 76 IUnit/L 45-117 N Note change in reference range due to change in reagent. [id number] 11:05:00* Test Item Value Reference Range Interpretation Comments LIPASE (test code = LIP) 235 U/L 73.0-393.0 N [id number] 11:05:00* Test Item Value Reference Range Interpretation Comments TROPONIN-I (test code = TROPI) <0.015 ng/mL 0-0.045 N COMPREHENSIVE METABOLIC [id number] 10:58:00* Test Item Value Reference Range Interpretation Comments SODIUM (test code = NA) 143 mmol/L 136-145 N POTASSIUM (test code = K) 4.1 mmol/L 3.5-5.1 N CHLORIDE (test code = CL) 110.0 mmol/L 98-107 H CARBON DIOXIDE (test code = CO2) mmol/L 21-32 ANION GAP (test code = GAP) 10-20 GLUCOSE (test code = GLU) mg/dL 74-106 BLOOD UREA NITROGEN (test code = BUN) mg/dL 7-18 GLOMERULAR FILTRATION RATE (test code = GFR) mL/min >=60 CREATININE (test code = CREAT) mg/dL 0.7-1.3 BUN/CREATININE RATIO (test code = BUN/CREA) 10-20 TOTAL PROTEIN (test code = PROT) gram/dL 6.4-8.2 ALBUMIN (test code = ALB) g/dL 3.4-5.0 GLOBULIN (test code = GLOB) gram/dL 2.7-4.2 ALBUMIN/GLOBULIN RATIO (test code = A/G) 0.75-1.50 CALCIUM (test code = CA) mg/dL 8.5-10.1 BILIRUBIN TOTAL (test code = BILT) mg/dL 0.0-1.0 SGOT/AST (test code = AST) IUnit/L 15-37 SGPT/ALT (test code = ALT) IUnit/L 12-78 ALKALINE PHOSPHATASE TOTAL (test code = ALKP) IUnit/L 45-117 [id number] 10:58:00* Test Item Value Reference Range Interpretation Comments LIPASE (test code = LIP) U/L 73.0-393.0 CBC W/AUTO [id number] 10:30:00* Test Item Value Reference Range Interpretation Comments WHITE BLOOD CELL (test code = WBC) 5.3 K/mm3 4.5-12.5 N RED BLOOD CELL (test code = RBC) 4.17 mill/mm3 4.0-5.8 N HEMOGLOBIN (test code = HGB) 12.8 gram/dL 13.0-17.5 L HEMATOCRIT (test code = HCT) 38.8 % 42.0-52.0 L MEAN CELL VOLUME (test code = MCV) 93.0 fL 80-98 N MEAN CELL HGB (test code = MCH) 30.7 picogram 27.0-33.0 N MEAN CELL HGB CONCETRATION (test code = MCHC) 33.0 gram/dL 33.0-36. 0 N RED CELL DISTRIBUTION WIDTH (test code = RDW) 14.0 % 11.6-16. 2 N RED CELL DISTRIBUTION WIDTH SD (test code = RDW-SD) 47.5 fL 37 .0-51.0 N PLATELET COUNT (test code = PLT) 178 K/mm3 150-450 N MEAN PLATELET VOLUME (test code = MPV) 9.7 fL 6.7-11.0 N NEUTROPHIL % (test code = NT%) 52.2 % 39.0-69.0 N IMMATURE GRANULOCYTE % (test code = IG%) 1.1 % 0.0-5.0 N LYMPHOCYTE % (test code = LY%) 33.7 % 25.0-55.0 N MONOCYTE % (test code = MO%) 8.1 % 0.0-10.0 N EOSINOPHIL % (test code = EO%) 3.8 % 0.0-5.0 N BASOPHIL % (test code = BA%) 1.1 % 0.0-1.0 H NUCLEATED RBC % (test code = NRBC%) 0.0 % 0-0 N NEUTROPHIL # (test code = NT#) 2.77 K/mm3 1.8-7.7 N IMMATURE GRANULOCYTE # (test code = IG#) 0.06 x10 3/uL 0-0.03 H LYMPHOCYTE # (test code = LY#) 1.79 K/mm3 1.0-5.0 N MONOCYTE # (test code = MO#) 0.43 K/mm3 0-0.8 N EOSINOPHIL # (test code = EO#) 0.20 K/mm3 0.0-0.5 N BASOPHIL # (test code = BA#) 0.06 K/mm3 0.0-0.2 N NUCLEATED RBC # (test code = NRBC#) 0.00 K/mm3 0.0-0.1 N THROMBOPLASTIN TIME [id number] 03:48:00* Test Item Value Reference Range Interpretation Comments THROMBOPLASTIN TIME PARTIAL (test code = PTT) 110.0 seconds 23.0-37 .0 HH Results called to [id number] by MADELAINEJMJ1 11/01/19 0348Critical results verified and read back by Nurse? Y IS PATIENT ON ANTICOAGULANTS? YLIST ANTICOAGULANTS HEPARINTHROMBOPLASTIN TIME [id number] 01:07:00* Test Item Value Reference Range Interpretation Comments THROMBOPLASTIN TIME PARTIAL (test code = PTT) 82.7 seconds 23.0-37. 0 H IS PATIENT ON ANTICOAGULANTS? YLIST ANTICOAGULANTS HEPARINSPECIMEN COMMENTS: PLEASE DRAW AT 02:28COMMENTS TO COLLECTION SPECIALIST: PLEASE DRAW AT 02:28TROPONIN-I 2019-10-31 22:03:00* Test Item Value Reference Range Interpretation Comments TROPONIN-I (test code = TROPI) <0.015 ng/mL 0-0.045 N COMMENTS TO COLLECTION SPECIALIST: COLLECT 3 HOURS AFTER PREVIOUS [id number] 19:26:00* Test Item Value Reference Range Interpretation Comments TROPONIN-I (test code = TROPI) <0.015 ng/mL 0-0.045 N COMMENTS TO COLLECTION SPECIALIST: COLLECT 3 HOURS AFTER PREVIOUS SAMPLETHROMBOPLASTIN TIME [id number] 19:19:00* Test Item Value Reference Range Interpretation Comments THROMBOPLASTIN TIME PARTIAL (test code = PTT) 25.0 seconds 23.0-37. 0 N IS PATIENT ON ANTICOAGULANTS? YLIST ANTICOAGULANTS HEPARINB-TYPE NATRIURETIC [id number] 12:55:00* Test Item Value Reference Range Interpretation Comments B-TYPE NATRIURETIC PEPTIDE (test code = BNP) 39.16 pgram/mL 0-100 N - XR CHEST 1 [id number] 12:42:00 FAX: Maia Roy [phone] [place]: B St: PRE Name: LAVONNE BAEZA [facility] : [birth year] Age/S: 59/M [address] Unit #: [id number] Loc: [place] [address] Phys: Maia Irvin MD Acct: [id number] Dis Date: Status: PRE ER PHONE #: [phone] Exam Date: 10/31/2019 1225 FAX #: [phone] Reason: SHORTNESS OF BREATH EXAMS: CPT CODE: [id number] XR CHEST 1 V 56746 HISTORY: SHORTNESS OF BREATH TECHNIQUE: AP chest x-ray COMPARISON: 10/15/19 FINDINGS: No airspace consolidation or pleural effusion. Cardio megaly. Mediastinal silhouette is unremarkable. Degenerative changes of th e spine and shoulders. IMPRESSION: No ra diographic evidence of acute cardiopulmonary process. LOCATION: LP at 1242 Reported and signed by: Sia Finney D.OAlysa CC: Maia Irvin MD Technologist: Soha Johnson(Joe) Trnscrd Date/Time/By: 10/31/2019 (1117) : By: [email or web address] Orig Print D/ T: S: 10/31/2019 (5483) PAGE 1 Si gned Report Coronavirus 2019 nCoV Bedside 2019-10-31 12:39:00* Test Item Value Reference Range Interpretation Comments Coronavirus 2019 nCoV Bedside (test code = [id number]) Negative Is patient requiring admission or transfer? YIndication for rapid COVID-19 testi ng: High Clinical SuspicionBASIC METABOLIC [id number] 12:25:00* Test Item Value Reference Range Interpretation Comments SODIUM (test code = NA) 143 mmol/L 136-145 N POTASSIUM (test code = K) 4.1 mmol/L 3.5-5.1 N CHLORIDE (test code = CL) 112.0 mmol/L 98-107 H CARBON DIOXIDE (test code = CO2) 26.0 mmol/L 21-32 N ANION GAP (test code = GAP) 9.1 10-20 L GLUCOSE (test code = GLU) 110 mg/dL 74-106 H BLOOD UREA NITROGEN (test code = BUN) 18 mg/dL 7-18 N GLOMERULAR FILTRATION RATE (test code = GFR) > 60 mL/min >=60 Estimated GFR by using Modified MDRD formula.Chronic kidney disease is defined as either kidney damageor GFR <60 mL/min/1.73 m2 for >3 months. CREATININE (test code = CREAT) 0.90 mg/dL 0.7-1.3 N BUN/CREATININE RATIO (test code = BUN/CREA) 19.7 10-20 N CALCIUM (test code = CA) 9.4 mg/dL 8.5-10.1 N [id number] 12:25:00* Test Item Value Reference Range Interpretation Comments TROPONIN-I (test code = TROPI) <0.015 ng/mL 0-0.045 N CBC W/AUTO [id number] 12:11:00* Test Item Value Reference Range Interpretation Comments WHITE BLOOD CELL (test code = WBC) 8.3 K/mm3 4.5-12.5 N RED BLOOD CELL (test code = RBC) 4.26 mill/mm3 4.0-5.8 N HEMOGLOBIN (test code = HGB) 13.1 gram/dL 13.0-17.5 N HEMATOCRIT (test code = HCT) 39.0 % 42.0-52.0 L MEAN CELL VOLUME (test code = MCV) 91.5 fL 80-98 N MEAN CELL HGB (test code = MCH) 30.8 picogram 27.0-33.0 N MEAN CELL HGB CONCETRATION (test code = MCHC) 33.6 gram/dL 33.0-36. 0 N RED CELL DISTRIBUTION WIDTH (test code = RDW) 14.1 % 11.6-16. 2 N RED CELL DISTRIBUTION WIDTH SD (test code = RDW-SD) 47.1 fL 37 .0-51.0 N PLATELET COUNT (test code = PLT) 214 K/mm3 150-450 N MEAN PLATELET VOLUME (test code = MPV) 9.8 fL 6.7-11.0 N NEUTROPHIL % (test code = NT%) 62.9 % 39.0-69.0 N IMMATURE GRANULOCYTE % (test code = IG%) 1.0 % 0.0-5.0 N LYMPHOCYTE % (test code = LY%) 25.3 % 25.0-55.0 N MONOCYTE % (test code = MO%) 7.3 % 0.0-10.0 N EOSINOPHIL % (test code = EO%) 2.8 % 0.0-5.0 N BASOPHIL % (test code = BA%) 0.7 % 0.0-1.0 N NUCLEATED RBC % (test code = NRBC%) 0.0 % 0-0 N NEUTROPHIL # (test code = NT#) 5.22 K/mm3 1.8-7.7 N IMMATURE GRANULOCYTE # (test code = IG#) 0.08 x10 3/uL 0-0.03 H LYMPHOCYTE # (test code = LY#) 2.10 K/mm3 1.0-5.0 N MONOCYTE # (test code = MO#) 0.61 K/mm3 0-0.8 N EOSINOPHIL # (test code = EO#) 0.23 K/mm3 0.0-0.5 N BASOPHIL # (test code = BA#) 0.06 K/mm3 0.0-0.2 N NUCLEATED RBC # (test code = NRBC#) 0.00 K/mm3 0.0-0.1 N COMPREHENSIVE METABOLIC [id number] 07:10:00* Test Item Value Reference Range Interpretation Comments SODIUM (test code = NA) 143 mmol/L 136-145 N POTASSIUM (test code = K) 3.9 mmol/L 3.5-5.1 N CHLORIDE (test code = CL) 113.0 mmol/L 98-107 H CARBON DIOXIDE (test code = CO2) 24.0 mmol/L 21-32 N ANION GAP (test code = GAP) 9.9 10-20 L GLUCOSE (test code = GLU) 114 mg/dL 74-106 H BLOOD UREA NITROGEN (test code = BUN) 10 mg/dL 7-18 N GLOMERULAR FILTRATION RATE (test code = GFR) > 60 mL/min >=60 Estimated GFR by using Modified MDRD formula.Chronic kidney disease is defined as either kidney damageor GFR <60 mL/min/1.73 m2 for >3 months. CREATININE (test code = CREAT) 0.90 mg/dL 0.7-1.3 N BUN/CREATININE RATIO (test code = BUN/CREA) 11.2 10-20 N TOTAL PROTEIN (test code = PROT) 6.1 gram/dL 6.4-8.2 L ALBUMIN (test code = ALB) 3.2 g/dL 3.4-5.0 L GLOBULIN (test code = GLOB) 2.9 gram/dL 2.7-4.2 N ALBUMIN/GLOBULIN RATIO (test code = A/G) 1.1 0.75-1.50 N CALCIUM (test code = CA) 8.3 mg/dL 8.5-10.1 L BILIRUBIN TOTAL (test code = BILT) 0.20 mg/dL 0.0-1.0 N SGOT/AST (test code = AST) 16 IUnit/L 15-37 N SGPT/ALT (test code = ALT) 28 IUnit/L 12-78 N ALKALINE PHOSPHATASE TOTAL (test code = ALKP) 75 IUnit/L 45-117 N Note change in reference range due to change in reagent. COMPREHENSIVE METABOLIC [id number] 06:57:00* Test Item Value Reference Range Interpretation Comments SODIUM (test code = NA) 143 mmol/L 136-145 N POTASSIUM (test code = K) 3.9 mmol/L 3.5-5.1 N CHLORIDE (test code = CL) 113.0 mmol/L 98-107 H CARBON DIOXIDE (test code = CO2) mmol/L 21-32 ANION GAP (test code = GAP) 10-20 GLUCOSE (test code = GLU) mg/dL 74-106 BLOOD UREA NITROGEN (test code = BUN) mg/dL 7-18 GLOMERULAR FILTRATION RATE (test code = GFR) mL/min >=60 CREATININE (test code = CREAT) mg/dL 0.7-1.3 BUN/CREATININE RATIO (test code = BUN/CREA) 10-20 TOTAL PROTEIN (test code = PROT) gram/dL 6.4-8.2 ALBUMIN (test code = ALB) g/dL 3.4-5.0 GLOBULIN (test code = GLOB) gram/dL 2.7-4.2 ALBUMIN/GLOBULIN RATIO (test code = A/G) 0.75-1.50 CALCIUM (test code = CA) mg/dL 8.5-10.1 BILIRUBIN TOTAL (test code = BILT) mg/dL 0.0-1.0 SGOT/AST (test code = AST) IUnit/L 15-37 SGPT/ALT (test code = ALT) IUnit/L 12-78 ALKALINE PHOSPHATASE TOTAL (test code = ALKP) IUnit/L 45-117 CBC W/AUTO [id number] 06:30:00* Test Item Value Reference Range Interpretation Comments WHITE BLOOD CELL (test code = WBC) 4.6 K/mm3 4.5-12.5 N RED BLOOD CELL (test code = RBC) 4.29 mill/mm3 4.0-5.8 N HEMOGLOBIN (test code = HGB) 12.8 gram/dL 13.0-17.5 L HEMATOCRIT (test code = HCT) 38.5 % 42.0-52.0 L MEAN CELL VOLUME (test code = MCV) 89.7 fL 80-98 N MEAN CELL HGB (test code = MCH) 29.8 picogram 27.0-33.0 N MEAN CELL HGB CONCETRATION (test code = MCHC) 33.2 gram/dL 33.0-36. 0 N RED CELL DISTRIBUTION WIDTH (test code = RDW) 13.8 % 11.6-16. 2 N RED CELL DISTRIBUTION WIDTH SD (test code = RDW-SD) 45.1 fL 37 .0-51.0 N PLATELET COUNT (test code = PLT) 186 K/mm3 150-450 N MEAN PLATELET VOLUME (test code = MPV) 9.3 fL 6.7-11.0 N NEUTROPHIL % (test code = NT%) 51.1 % 39.0-69.0 N IMMATURE GRANULOCYTE % (test code = IG%) 1.1 % 0.0-5.0 N LYMPHOCYTE % (test code = LY%) 33.8 % 25.0-55.0 N MONOCYTE % (test code = MO%) 9.4 % 0.0-10.0 N EOSINOPHIL % (test code = EO%) 3.3 % 0.0-5.0 N BASOPHIL % (test code = BA%) 1.3 % 0.0-1.0 H NUCLEATED RBC % (test code = NRBC%) 0.0 % 0-0 N NEUTROPHIL # (test code = NT#) 2.33 K/mm3 1.8-7.7 N IMMATURE GRANULOCYTE # (test code = IG#) 0.05 x10 3/uL 0-0.03 H LYMPHOCYTE # (test code = LY#) 1.54 K/mm3 1.0-5.0 N MONOCYTE # (test code = MO#) 0.43 K/mm3 0-0.8 N EOSINOPHIL # (test code = EO#) 0.15 K/mm3 0.0-0.5 N BASOPHIL # (test code = BA#) 0.06 K/mm3 0.0-0.2 N NUCLEATED RBC # (test code = NRBC#) 0.00 K/mm3 0.0-0.1 N MANUAL DIFF REQUIRED (test code = MDIFF) NO Coronavirus 2019 nCoV [id number] 13:24:00* Test Item Value Reference Range Interpretation Comments Coronavirus 2019 nCoV Bedside (test code = COVNONPUIBED) Negative BASIC METABOLIC [id number] 07:25:00* Test Item Value Reference Range Interpretation Comments SODIUM (test code = NA) 143 mmol/L 136-145 N POTASSIUM (test code = K) 4.3 mmol/L 3.5-5.1 N CHLORIDE (test code = CL) 111.0 mmol/L 98-107 H CARBON DIOXIDE (test code = CO2) 24.0 mmol/L 21-32 N ANION GAP (test code = GAP) 12.3 10-20 N GLUCOSE (test code = GLU) 102 mg/dL 74-106 N BLOOD UREA NITROGEN (test code = BUN) 10 mg/dL 7-18 N GLOMERULAR FILTRATION RATE (test code = GFR) > 60 mL/min >=60 Estimated GFR by using Modified MDRD formula.Chronic kidney disease is defined as either kidney damageor GFR <60 mL/min/1.73 m2 for >3 months. CREATININE (test code = CREAT) 0.90 mg/dL 0.7-1.3 N BUN/CREATININE RATIO (test code = BUN/CREA) 11.2 10-20 N CALCIUM (test code = CA) 8.7 mg/dL 8.5-10.1 N LIPID PROFILE (CORONARY RISK)2019-10-16 07:25:00* Test Item Value Reference Range Interpretation Comments TRIGLYCERIDES (test code = TRIG) 177 mg/dL 20-150 H CHOLESTEROL (test code = CHOL) 166 mg/dL 0-200 N CHOLESTEROL/HDL RATIO (test code = CHOLHDL) 3.0 RATIO 0-4.9 N RISK ASSOCIATED WITH CHOL/HDL RATIOS: Risk Male Female1/2 AVERAGE 3.43 3.27AVERAGE 4.97 4.442X AVERAGE 9.55 7.053X AVERAGE 23.39 11.04 REFERENCE VALUE IS RELATED TO RISK LEVELS ASRECOMMENDED BY THE [facility]. HEART, LUNG, AND BLOOD INST. HDL CHOLESTEROL (test code = HDL) 45 mg/dL 40-60 N LIPOPROTEIN LDL (test code = LDL) 90 mg/dL 100-129 L Reference Interval: mg/dL mmol/L Optimal <100 <2.6Near/above optimal 100-129 2.6- 3.3Borderline High 130-159 3.4-4.1High 160-189 4.1-4.9Very High >=190 >=4.9========= This LDL result is a direct measurement.========= [id number] 07:02:00* Test Item Value Reference Range Interpretation Comments TROPONIN-I (test code = TROPI) <0.015 ng/mL 0-0.045 N COMMENTS TO COLLECTION SPECIALIST: COLLECT 3 HOURS AFTER PREVIOUS SAMPLEBASIC METABOLIC [id number] 06:59:00* Test Item Value Reference Range Interpretation Comments SODIUM (test code = NA) 143 mmol/L 136-145 N POTASSIUM (test code = K) 4.3 mmol/L 3.5-5.1 N CHLORIDE (test code = CL) 111.0 mmol/L 98-107 H CARBON DIOXIDE (test code = CO2) mmol/L 21-32 ANION GAP (test code = GAP) 10-20 GLUCOSE (test code = GLU) mg/dL 74-106 BLOOD UREA NITROGEN (test code = BUN) mg/dL 7-18 GLOMERULAR FILTRATION RATE (test code = GFR) mL/min >=60 CREATININE (test code = CREAT) mg/dL 0.7-1.3 BUN/CREATININE RATIO (test code = BUN/CREA) 10-20 CALCIUM (test code = CA) mg/dL 8.5-10.1 LIPID PROFILE (CORONARY RISK)2019-10-16 06:59:00* Test Item Value Reference Range Interpretation Comments TRIGLYCERIDES (test code = TRIG) mg/dL 20-150 CHOLESTEROL (test code = CHOL) mg/dL 0-200 CHOLESTEROL/HDL RATIO (test code = CHOLHDL) RATIO 0-4.9 HDL CHOLESTEROL (test code = HDL) mg/dL 40-60 LIPOPROTEIN LDL (test code = LDL) mg/dL 100-129 CBC W/AUTO [id number] 06:21:00* Test Item Value Reference Range Interpretation Comments WHITE BLOOD CELL (test code = WBC) 5.0 K/mm3 4.5-12.5 N RED BLOOD CELL (test code = RBC) 4.34 mill/mm3 4.0-5.8 N HEMOGLOBIN (test code = HGB) 13.0 gram/dL 13.0-17.5 N HEMATOCRIT (test code = HCT) 38.6 % 42.0-52.0 L MEAN CELL VOLUME (test code = MCV) 88.9 fL 80-98 N MEAN CELL HGB (test code = MCH) 30.0 picogram 27.0-33.0 N MEAN CELL HGB CONCETRATION (test code = MCHC) 33.7 gram/dL 33.0-36. 0 N RED CELL DISTRIBUTION WIDTH (test code = RDW) 13.9 % 11.6-16. 2 N RED CELL DISTRIBUTION WIDTH SD (test code = RDW-SD) 45.1 fL 37 .0-51.0 N PLATELET COUNT (test code = PLT) 194 K/mm3 150-450 N MEAN PLATELET VOLUME (test code = MPV) 8.9 fL 6.7-11.0 N NEUTROPHIL % (test code = NT%) 52.5 % 39.0-69.0 N IMMATURE GRANULOCYTE % (test code = IG%) 0.8 % 0.0-5.0 N LYMPHOCYTE % (test code = LY%) 33.4 % 25.0-55.0 N MONOCYTE % (test code = MO%) 8.7 % 0.0-10.0 N EOSINOPHIL % (test code = EO%) 3.6 % 0.0-5.0 N BASOPHIL % (test code = BA%) 1.0 % 0.0-1.0 N NUCLEATED RBC % (test code = NRBC%) 0.0 % 0-0 N NEUTROPHIL # (test code = NT#) 2.61 K/mm3 1.8-7.7 N IMMATURE GRANULOCYTE # (test code = IG#) 0.04 x10 3/uL 0-0.03 H LYMPHOCYTE # (test code = LY#) 1.66 K/mm3 1.0-5.0 N MONOCYTE # (test code = MO#) 0.43 K/mm3 0-0.8 N EOSINOPHIL # (test code = EO#) 0.18 K/mm3 0.0-0.5 N BASOPHIL # (test code = BA#) 0.05 K/mm3 0.0-0.2 N NUCLEATED RBC # (test code = NRBC#) 0.00 K/mm3 0.0-0.1 N MANUAL DIFF REQUIRED (test code = MDIFF) NO [id number] 03:52:00* Test Item Value Reference Range Interpretation Comments TROPONIN-I (test code = TROPI) <0.015 ng/mL 0-0.045 N COMMENTS TO COLLECTION SPECIALIST: COLLECT 3 HOURS AFTER PREVIOUS SAMPLEB-TYPE NATRIURETIC [id number] 21:07:00* Test Item Value Reference Range Interpretation Comments B-TYPE NATRIURETIC PEPTIDE (test code = BNP) 8.8 pgram/mL 0-100 N [id number] 20:41:00* Test Item Value Reference Range Interpretation Comments GLYCOSYLATED HEMOGLOBIN (HA1C) (test code = GLYHGB) 5.6 % HbA1 SUGGESTED DIAGNOSIS: HbA1C (%) Diabetic >6.4Prediabetes 5.7 - 6.4Normal <5.7 ESTIMATED AVERAGE GLUCOSE (test code = EAG) 114 MG/DL [id number] 20:30:00* Test Item Value Reference Range Interpretation Comments MAGNESIUM (test code = MAG) 2.2 mg/dL 1.8-2.4 N [id number] 20:30:00* Test Item Value Reference Range Interpretation Comments ALCOHOL (test code = ALC) 5 mg/dL 0.0-3.0 H -- INTERPRETIVE DATA NOTE: POSITIVE SCREENING RESULTS SHOULD BE CONSIDERED PRESUMPTIVE.WHEN COLLECTED FOR MEDICAL PURPOSES ONLY. SPECIMEN WILL NOTBE COLLECTED BY CHAIN OF CUSTODY.IF A CONFIRMATION OF POSITIVE RESULTS IS DESIRED, ACONFIRMATION TEST MUST BE REQUESTED BY THE PHYSICIAN AT ANADDITIONAL CHARGE TO THE PATIENT. [id number] 20:29:00* Test Item Value Reference Range Interpretation Comments MAGNESIUM (test code = MAG) 2.2 mg/dL 1.8-2.4 N [id number] 20:29:00* Test Item Value Reference Range Interpretation Comments ALCOHOL (test code = ALC) mg/dL 0-3 - CTA [id number] 19:08:00 Name: LAVONNE CONTRERAS [facility] : 1960 Age/S: 58 / M [address] [facility] Unit #: [id number] Loc: [place] [address] Phys: Bob Bradley DO Acct: [id number] Dis Date: Status: REG ER PHONE #: [phone] Exam Date: 10/15/2019 1900 FAX #: [phone] Reason: chest pain/lightheaded - evaluate aorta EXAMS: CPT CODE: [id number] CTA CHEST 04640 REASON FOR EXAM: chest pain/lightheaded - evaluate aorta EXAM ORDER DATE: 10/15/2019 5:31 PM Ordering: Bob Bradley DO Attending:Bob Bradley DO Location:[facility] PROCEDURE: - CTA CHEST FINDINGS: CT images of the chest were obtained with IV contrast using PE protocol. Reconstructed sagittal and coronal images including 3D reconstructions of the chest were provided for interpretation. Dose reduction techniques were applied. Intravenous contrast: 100cc of Omnipaque 370. The heart size is within normal limits. No evidence of pericardial effusion The thoracic aorta is unremarkable. No evidence of dissection or aneurysmal dilatation. No filling defect seen within the main or lobar pulmonary arteries to suggest pulmonary embolus No evidence of mediastinal or hilar adenopathy The lungs are clear. No evidence of pleural effusion IMPRESSION: No acute findings in the chest. at 1908 Reported and signed by: Castillo August M.D. CC: Bob Bradley DO Technologist:Horace Moise RT(R),(MR),(CT); CTDI: DLP: Trnscb Date/Time: 10/15/2019 (1907) KostaL Orig Print D/T: S: 10/15/2019 (1910) PAGE 1 Signed Report BASIC METABOLIC [id number] 18:28:00* Test Item Value Reference Range Interpretation Comments SODIUM (test code = NA) 140 mmol/L 136-145 N POTASSIUM (test code = K) 3.5 mmol/L 3.5-5.1 N CHLORIDE (test code = CL) 108.0 mmol/L 98-107 H CARBON DIOXIDE (test code = CO2) 24.0 mmol/L 21-32 N ANION GAP (test code = GAP) 11.5 10-20 N GLUCOSE (test code = GLU) 104 mg/dL 74-106 N BLOOD UREA NITROGEN (test code = BUN) 11 mg/dL 7-18 N GLOMERULAR FILTRATION RATE (test code = GFR) > 60 mL/min >=60 Estimated GFR by using Modified MDRD formula.Chronic kidney disease is defined as either kidney damageor GFR <60 mL/min/1.73 m2 for >3 months. CREATININE (test code = CREAT) 1.00 mg/dL 0.7-1.3 N BUN/CREATININE RATIO (test code = BUN/CREA) 11.4 10-20 N CALCIUM (test code = CA) 9.4 mg/dL 8.5-10.1 N [id number] 18:28:00* Test Item Value Reference Range Interpretation Comments TROPONIN-I (test code = TROPI) <0.015 ng/mL 0-0.045 N - XR CHEST 1 [id number] 18:24:00 FAX: Bob Bradley DO [place]: B St: REG Name: LAVONNE BAEZA [facility] : [birth year] Age/S: 58/M [address] Unit #: [id number] Loc: [place], [place] [address] Phys: Bob Bradley DO Acct: [id number] Dis Date: Status: REG ER PHONE #: [phone] Exam Date: 10/15/20191821 FAX #: [phone] Reason: CHEST PAIN EXAMS: CPT CODE: [id number] XR CHEST 1 V 74662 REASON FOR EXAM: CHEST PAIN EXAM ORDER DATE: 10/15/2019 5:07 PM Ordering: Bob Bradley DO Attending:Bob Bradley DO Location:[facility] OCEDURE: - XR CHEST 1 V COMPARISON: FINDINGS: Port able AP frontal view of the chest obtained at 6:19 PM shows clear lungs wi thout evidence of consolidation. There is no evidence of effusion. The hea rt size is within normal limits. Pulmonary vasculatures are unremarkable. IMPRESSION: No active disease. at 1824 Reported and sig tuan by: Castillo August M.D. CC: Bob Bradley DO Technologist: ZEYNEP SCHILLING Trnscrd Date/Time/By: 10/15/2019 (1823) : By: KostaL Orig Print D/T: S: 10/15/2019 (1826) PAGE 1 Signed Report BASIC METABOLIC [id number] 18:20:00* Test Item Value Reference Range Interpretation Comments SODIUM (test code = NA) 140 mmol/L 136-145 N POTASSIUM (test code = K) 3.5 mmol/L 3.5-5.1 N CHLORIDE (test code = CL) 108.0 mmol/L 98-107 H CARBON DIOXIDE (test code = CO2) mmol/L 21-32 ANION GAP (test code = GAP) 10-20 GLUCOSE (test code = GLU) mg/dL 74-106 BLOOD UREA NITROGEN (test code = BUN) mg/dL 7-18 GLOMERULAR FILTRATION RATE (test code = GFR) mL/min >=60 CREATININE (test code = CREAT) mg/dL 0.7-1.3 BUN/CREATININE RATIO (test code = BUN/CREA) 10-20 CALCIUM (test code = CA) 9.4 mg/dL 8.5-10.1 N [id number] 18:20:00* Test Item Value Reference Range Interpretation Comments TROPONIN-I (test code = TROPI) ng/mL 0-0.045 CBC W/O [id number] 18:14:00* Test Item Value Reference Range Interpretation Comments WHITE BLOOD CELL (test code = WBC) 5.8 K/mm3 4.5-12.5 N RED BLOOD CELL (test code = RBC) 4.72 mill/mm3 4.0-5.8 N HEMOGLOBIN (test code = HGB) 14.4 gram/dL 13.0-17.5 N HEMATOCRIT (test code = HCT) 41.8 % 42.0-52.0 L MEAN CELL VOLUME (test code = MCV) 88.6 fL 80-98 N MEAN CELL HGB (test code = MCH) 30.5 picogram 27.0-33.0 N MEAN CELL HGB CONCETRATION (test code = MCHC) 34.4 gram/dL 33.0-36. 0 N RED CELL DISTRIBUTION WIDTH (test code = RDW) 13.7 % 11.6-16. 2 N PLATELET COUNT (test code = PLT) 211 K/mm3 150-450 N MEAN PLATELET VOLUME (test code = MPV) 9.2 fL 6.7-11.0 N Urine [id number] 14:46:57* Test Item Value Reference Range Interpretation Comments Urine culture isolate (test code = 48995-3) Mixed sisi <=10-3 col/ cc Specimen InformationSpecimen Source: UrineSpecimen Site: Clean catch [place] Methodist[facility]inalysis screen and microscopy, with reflex to culture 2019-08-25 11:59:15* Test Item Value Reference Range Interpretation Comments Specimen site (test code = 5128713) Clean catch Color, UA (test code = 5778-6) Yellow Appearance, UA (test code = 5767-9) Slightly-Cloudy Specific gravity, UA (test code = 5811-5) 1.019 1.001-1.035 pH, UA (test code = 5803-2) 7.0 5.0-8.5 Protein, UA (test code = 82072-2) Negative Negative Glucose, UA (test code = 94857-2) Negative Negative Ketones, UA (test code = 2514-8) Negative Negative Bilirubin, UA (test code = 5770-3) Negative Negative Blood, UA (test code = 5794-3) Negative Negative Nitrite, UA (test code = 5802-4) Negative Negative Urobilinogen, UA (test code = 91371-3) Negative <2.0 Leukocyte esterase, UA (test code = 5799-2) Negative Negative Epithelial cells, UA (test code = 5787-7) Many /HPF WBC, UA (test code = 5821-4) 7 0- 1 /HPF H RBC, UA (test code = 53553-4) 2 0- 5 /HPF Bacteria, UA (test code = 53357-2) None seen None seen Yeast, UA (test code = 37513-3) None seen Yeast with pseudohyphae, UA (test code = 83791-9) None seen Lab Interpretation (test code = 72304-1) Abnormal [place] [facility] [id number] 11:17:36* Test Item Value Reference Range Interpretation Comments Sodium (test code = 2951-2) 140 135- 150 mEq/L Potassium (test code = 2823-3) 4.9 3.5- 5.0 mEq/L Chloride (test code = 2075-0) 105 98- 112 mEq/L CO2 (test code = 8-9) 23 mmol/L 24-31 L Anion gap (test code = 45427-8) 12@ANIO 7- 15 mEq/L BUN (test code = 3094-0) 14 mg/dL 7-18 Creatinine (test code = 2160-0) 1.00 mg/dL 0.7-1.2 Glucose (test code = 2345-7) 101 mg/dL 65-100 H Calcium (test code = 92922-3) 9.9 mg/dL 8.3-10.2 Protein (test code = 2885-2) 6.8 g/dL 6.3-8.3 Albumin (test code = 1751-7) 3.7 g/dL 3.5-5 A/G ratio (test code = 1759-0) 1.2 0.7-3.8 Alkaline phosphatase (test code = 6768-6) 70 U/L 0-129 AST (test code = 1920-8) 21 U/L 10-50 ALT (test code = 1742-6) 21 U/L 5-50 Total bilirubin (test code = 1975-2) <0.3 0.2-1.2 Lab Interpretation (test code = 85868-4) Abnormal [facility] MethodistEstimated [id number] 11:17:36* Test Item Value Reference Range Interpretation Comments Estimated GFR (test code = 5488) 83 mL/min/1.73 m2 Catergory Units InterpretationG1 >=90 Normal or highG2 60-89 Mildly ifeqhmmcoY0p 45-59 Mildly to moderately yvejuaxkzU3z 30-44 Moderately to severely decreasedG4 15-29 Severely decreasedG5 <15 Kidney failureThe eGFR was calculated using the Chronic Kidney Disease Epidemiology Collaboration (CKD-EPI) equation. Interpretation is based on recommendations of the National Kidney Foundation-Kidney Disease Outcomes Quality Initiative (NKF-KDOQI) published in 2014. [facility] with platelet and [id number] 11:02:02* Test Item Value Reference Range Interpretation Comments WBC (test code = 91394-1) 6.3 4.2- 11.0 k/uL RBC (test code = 90847-3) 4.63 m/uL 4.04-5.86 HGB (test code = 718-7) 14.0 g/dL 13-17.3 HCT (test code = 4544-3) 42.5 % 34-45 MCV (test code = 787-2) 91.8 fL 80-98 MCH (test code = 785-6) 30.2 pg 27-34 MCHC (test code = 786-4) 32.9 g/dL 31.5-36.5 RDW - SD (test code = 04698-4) 47.5 fL 37-51 MPV (test code = 44532-7) 9.3 fL 7.4-10.4 Platelet count (test code = 78985-4) 192 150- 400 k/uL Nucleated RBC (test code = 38598-6) 0.00 /100 WBC Neutrophils (test code = 65326-4) 51.3 % 36-66 Lymphocytes (test code = 88824-5) 36.4 % 24-44 Monocytes (test code = 26996-6) 9.2 % 0-6 H Eosinophils (test code = 34357-5) 1.7 % 0-6 Basophils (test code = 34523-2) 0.8 % 0-1.2 Immature granulocytes (test code = 31068-8) 0.6 % 0-1 Lab Interpretation (test code = 57380-0) Abnormal [place] [facility]- XR CHEST 1 [id number] 07:46:00 FAX: Audrey Perez [phone] [place]: St: REG Name: LAVONNE BAEZA [facility] : [birth year] Age/S: 58/M [address] Unit #: [id number] Loc: [place] [address] Phys: Audrey Perez ALTERNATIVE DISPUTE RESOLUTION MEDIATOR Acct: [id number] Dis Date: Status: REG ER PHONE #: [phone] Exam Date: 07/29/2019 0731 FAX #: [phone] Reason: cough, fever, sob EXAMS: CPT CODE: [id number] XR CHEST 1 V 52158 EXAM: XR Chest 1 View INDICATION: cough, fever, sob LOCATION CODE: H 50 COMPARISON: Chest radiograph dated 07/16/2019 TECHNIQUE: Frontal vi ew of the chest was obtained. FINDINGS: The lungs a re clear. There is no pleural effusion or pneumothorax. The cardiomedias tinal silhouette is unchanged. No acute osseous abnormality is identified . IMPRESSION: No acute cardiopulmonary abnormality. at 0761 Reported and signed by: VALENTINA AWGNER MD CC: Audrey Perez ALTERNATIVE DISPUTE RESOLUTION MEDIATOR Technologist: LEIDY GRANADOS RT (R) Trnscrd Date/Time/By: 07/29/2019 (7369) : By: [email or web address] PAGE 1 Signed Report FAX: Audrey Perez [phone] [place]: St: REG Name: DIANELAVONNE ELBERT [facility] : 1960 Age/S: 58/M [address] Unit #: [id number] Loc: [place] [address] Phys: Audrey Perez NP A cct: [id number] Dis Date: Status: REG ER PHONE #: [phone] Exam Date: 07/29/2019730 FAX #: [phone] Reason: cough, fever, sob EXAMS: CPT CODE: [id number] XR CHEST 1 V 43941 < Continued> Orig Print D/T: S: 07/29/2019 (0002) PAGE 2 Signed Report B-TYPE NATRIURETIC [id number] 16:31:00* Test Item Value Reference Range Interpretation Comments B-TYPE NATRIURETIC PEPTIDE (test code = BNP) 69.62 pgram/mL 0-100 N BASIC METABOLIC [id number] 16:27:00* Test Item Value Reference Range Interpretation Comments SODIUM (test code = NA) 140 mmol/L 136-145 N POTASSIUM (test code = K) 4.8 mmol/L 3.5-5.1 N CHLORIDE (test code = CL) 112.0 mmol/L 98-107 H CARBON DIOXIDE (test code = CO2) 24.0 mmol/L 21-32 N ANION GAP (test code = GAP) 8.8 10-20 L GLUCOSE (test code = GLU) 150 mg/dL 74-106 H BLOOD UREA NITROGEN (test code = BUN) 8 mg/dL 7-18 N GLOMERULAR FILTRATION RATE (test code = GFR) > 60 mL/min >=60 Estimated GFR by using Modified MDRD formula.Chronic kidney disease is defined as either kidney damageor GFR <60 mL/min/1.73 m2 for >3 months. CREATININE (test code = CREAT) 0.90 mg/dL 0.7-1.3 N BUN/CREATININE RATIO (test code = BUN/CREA) 8.9 10-20 L CALCIUM (test code = CA) 9.7 mg/dL 8.5-10.1 N HEPATIC FUNCTION [id number] 16:27:00* Test Item Value Reference Range Interpretation Comments TOTAL PROTEIN (test code = PROT) 7.2 gram/dL 6.4-8.2 N ALBUMIN (test code = ALB) 3.4 g/dL 3.4-5.0 N GLOBULIN (test code = GLOB) 3.8 gram/dL 2.7-4.2 N ALBUMIN/GLOBULIN RATIO (test code = A/G) 0.9 0.75-1.50 N BILIRUBIN TOTAL (test code = BILT) 0.30 mg/dL 0.0-1.0 N BILIRUBIN DIRECT (test code = BILD) < 0.05 mg/dL 0.0-0.20 N SGOT/AST (test code = AST) 65 IUnit/L 15-37 H SGPT/ALT (test code = ALT) 78 IUnit/L 12-78 N ALKALINE PHOSPHATASE TOTAL (test code = ALKP) 141 IUnit/L 45-117 H Note change in reference range due to change in reagent. [id number] 16:27:00* Test Item Value Reference Range Interpretation Comments TROPONIN-I (test code = TROPI) <0.015 ng/mL 0-0.045 N BASIC METABOLIC [id number] 16:12:00* Test Item Value Reference Range Interpretation Comments SODIUM (test code = NA) 140 mmol/L 136-145 N POTASSIUM (test code = K) 4.8 mmol/L 3.5-5.1 N CHLORIDE (test code = CL) 112.0 mmol/L 98-107 H CARBON DIOXIDE (test code = CO2) mmol/L 21-32 ANION GAP (test code = GAP) 10-20 GLUCOSE (test code = GLU) mg/dL 74-106 BLOOD UREA NITROGEN (test code = BUN) mg/dL 7-18 GLOMERULAR FILTRATION RATE (test code = GFR) mL/min >=60 CREATININE (test code = CREAT) mg/dL 0.7-1.3 BUN/CREATININE RATIO (test code = BUN/CREA) 10-20 CALCIUM (test code = CA) mg/dL 8.5-10.1 HEPATIC FUNCTION [id number] 16:12:00* Test Item Value Reference Range Interpretation Comments TOTAL PROTEIN (test code = PROT) gram/dL 6.4-8.2 ALBUMIN (test code = ALB) g/dL 3.4-5.0 GLOBULIN (test code = GLOB) gram/dL 2.7-4.2 ALBUMIN/GLOBULIN RATIO (test code = A/G) 0.75-1.50 BILIRUBIN TOTAL (test code = BILT) mg/dL 0.0-1.0 BILIRUBIN DIRECT (test code = BILD) mg/dL 0.0-0.20 SGOT/AST (test code = AST) IUnit/L 15-37 SGPT/ALT (test code = ALT) IUnit/L 12-78 ALKALINE PHOSPHATASE TOTAL (test code = ALKP) IUnit/L 45-117 [id number] 16:12:00* Test Item Value Reference Range Interpretation Comments TROPONIN-I (test code = TROPI) ng/mL 0-0.045 CBC W/O [id number] 15:59:00* Test Item Value Reference Range Interpretation Comments WHITE BLOOD CELL (test code = WBC) 6.0 K/mm3 4.5-12.5 N RED BLOOD CELL (test code = RBC) 4.86 mill/mm3 4.0-5.8 N HEMOGLOBIN (test code = HGB) 14.3 gram/dL 13.0-17.5 N HEMATOCRIT (test code = HCT) 42.8 % 42.0-52.0 N MEAN CELL VOLUME (test code = MCV) 88.1 fL 80-98 N MEAN CELL HGB (test code = MCH) 29.4 picogram 27.0-33.0 N MEAN CELL HGB CONCETRATION (test code = MCHC) 33.4 gram/dL 33.0-36. 0 N RED CELL DISTRIBUTION WIDTH (test code = RDW) 13.6 % 11.6-16. 2 N PLATELET COUNT (test code = PLT) 196 K/mm3 150-450 N MEAN PLATELET VOLUME (test code = MPV) 9.5 fL 6.7-11.0 N CBC W/O [id number] 15:57:00* Test Item Value Reference Range Interpretation Comments WHITE BLOOD CELL (test code = WBC) K/mm3 4.5-12.5 RED BLOOD CELL (test code = RBC) mill/mm3 4.0-5.8 HEMOGLOBIN (test code = HGB) 14.3 gram/dL 13.0-17.5 N HEMATOCRIT (test code = HCT) 42.8 % 42.0-52.0 N MEAN CELL VOLUME (test code = MCV) fL 80-98 MEAN CELL HGB (test code = MCH) picogram 27.0-33.0 MEAN CELL HGB CONCETRATION (test code = MCHC) gram/dL 33.0-36. 0 RED CELL DISTRIBUTION WIDTH (test code = RDW) % 11.6-16. 2 PLATELET COUNT (test code = PLT) K/mm3 150-450 MEAN PLATELET VOLUME (test code = MPV) fL 6.7-11.0 - XR CHEST 1 [id number] 14:10:00 FAX: Aram Cooney MD [place]: St: PRE Name: LUZ BAEZAE ELBERT [facility] : [birth year] Age/S: 58/M [address] Unit #: [id number] Loc: [place] [address] Phys: Aram Cooney MD Acct: [id number] Dis Date: Status: PRE ER PHONE #: [phone] Exam Date: 07/16/2019 1359 FAX #: [phone] Reason: Shortness of Breath EXAMS: CPT CODE: [id number] XR CHEST 1 V 09532 REASON FOR EXAM: Shortness of Breath Exam Order Date: 07/16/2019 1:40 PM Ordering MTatyana: Aram Cooney MD PROCEDURE: - XR CHEST 1 V COMPARISON: Chest x-ray January 25, 2019 FINDINGS: The lungs are clear. There is no pleural effusion or pneumothorax. Pulmonary vascularity is within normal limits. Cardiomediastinal silhouette is normal in size for technique. The mediastinal contours are within no rmal limits. Musculoskeletal structures are within normal limits. Prior cholecystectomy. IMPRESSION: No acute cardiopulmonary process. Location: [facility] E lectronically Signed by Joe Vu MD on 07/16/2019 at 1410 Reported and signed by: Joe Vu MD CC: Aram Cooney MD Technologist: Sahara Lino RT(R) Trnscrd Date/Time/By: 07/16/2019 (1410) : By: [email or web address] [facility] Print D/T: S: 07/16/2019 (8383) PAGE [address] Renal Stone [id number] 19:20:55Hm Interface, Radiology Results - 06/27/2019 7:24 PM CSTEXAMINATION: CT RENAL STONE PROTOCOLCLINICAL HISTORY: Urinary tract stone known symptomatic complications or risk factors, right flank painTECHNIQUE: Multiple axial images of the abdomen and pelvis were obtained without intravenous administration of iodinated contrast. Sagittal and coronal computerized reformatted images were also obtained. The lack of intravenous contrast reduces the sensitivity of detecting solid organ disease.Automatic exposure control or iterative reconstruction techniques used to reduce dose.COMPARISON: 11/13/2017Impression:1.Without IV contrast evaluation of solid organs of upper abdomen is limited. No nephrolithiasis or hydronephrosis. Ureters are not dilated and no stones are seen in the bladder.2.Significant distention of the stomach containing debris-like material. Possibility of gastric outlet obstruction should be considered and correlated.3.No small bowel obstruction. 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 This could be an enlarged node or othe r peritoneal mass. Contrast enhanced study or MRI would be useful for further ev aluation.[facility]-[id number] MethodistLipase [id number] 18:08:05* Test Item Value Reference Range Interpretation Comments Lipase (test code = 3040-3) 61 U/L 13-60 H Lab Interpretation (test code = 39046-5) Abnormal [place] MethodistTHYROID STIMULATING [id number] 08:40:00* Test Item Value Reference Range Interpretation Comments THYROID STIMULATING HORMONE (test code = TSH) 1.790 uIU/mL 0.36-3.7 4 N TSH REFERENCE RANGES: EUTHYROID: 0.35 - 4.3 mIU/mL HYPO : > 5.5 mIU/mL HYPER : < 0.35 mIU/mL URINALYSIS [id number] 01:17:00* Test Item Value Reference Range Interpretation Comments UA COLOR (test code = COLU) Light-Blair YELLOW UA APPEARANCE (test code = APPU) TURBID CLEAR A UA GLUCOSE DIPSTICK (test code = DGLUU) NEGATIVE mg/dL NEGATIVE UA BILIRUBIN DIPSTICK (test code = BILU) NEGATIVE mg/dL NEGATIVE UA KETONE DIPSTICK (test code = KETU) NEGATIVE mg/dL NEGATIVE UA SPECIFIC GRAVITY (test code = SGU) 1.033 1.001-1.035 UA BLOOD DIPSTICK (test code = MERARY) >1.0 mg/dL NEGATIVE UA PH DIPSTICK (test code = JAISON) 6.0 5.0-8.0 UA PROTEIN DIPSTICK (test code = PROU) 300 (3+) mg/dL NEGATIVE A UA UROBILINIOGEN DIPSTICK (test code = URO) Normal mg/dL NEGATIVE UA NITRITE DIPSTICK (test code = NOEL) NEGATIVE NEGATIVE UA LEUKOCYTE ESTERASE W REFLEX (test code = LEUUR) 75 Alonzo/uL (1+) Alonzo/uL NEGATIVE A UA WBC (test code = WBCU) 51-100 per HPF 0-5 A UA RBC (test code = RBCU) >200 #/HPF 0-5 UA WBC CLUMPS (test code = WBCUCL) 7-10 /HPF NONE A UA EPITHELIAL CELLS (test code = EPIU) MANY per HPF FEW UA BACTERIA (test code = BACU) FEW #/HPF NONE A UA CALCIUM OXALATE CRYSTALS (test code = CAOXU) FEW #/HPF NONE A UA MUCUS (test code = MUCU) MANY #/LPF FEW A Urine Source? CatheterURINALYSIS [id number] 01:15:00* Test Item Value Reference Range Interpretation Comments UA COLOR (test code = COLU) Light-Blair YELLOW UA APPEARANCE (test code = APPU) TURBID CLEAR A UA GLUCOSE DIPSTICK (test code = DGLUU) NEGATIVE mg/dL NEGATIVE UA BILIRUBIN DIPSTICK (test code = BILU) NEGATIVE mg/dL NEGATIVE UA KETONE DIPSTICK (test code = KETU) NEGATIVE mg/dL NEGATIVE UA SPECIFIC GRAVITY (test code = SGU) 1.033 1.001-1.035 UA BLOOD DIPSTICK (test code = MERARY) >1.0 mg/dL NEGATIVE UA PH DIPSTICK (test code = JAISON) 6.0 5.0-8.0 UA PROTEIN DIPSTICK (test code = PROU) 300 (3+) mg/dL NEGATIVE A UA UROBILINIOGEN DIPSTICK (test code = URO) Normal mg/dL NEGATIVE UA NITRITE DIPSTICK (test code = NOEL) NEGATIVE NEGATIVE UA LEUKOCYTE ESTERASE W REFLEX (test code = LEUUR) 75 Alonzo/uL (1+) Alonzo/uL NEGATIVE A UA WBC (test code = WBCU) per HPF 0-5 UA RBC (test code = RBCU) per HPF 0-5 UA EPITHELIAL CELLS (test code = EPIU) per HPF Few UA BACTERIA (test code = BACU) per HPF NONE Urine Source? CatheterBASIC METABOLIC [id number] 22:33:00* Test Item Value Reference Range Interpretation Comments SODIUM (test code = NA) 138 mmol/L 136-145 N POTASSIUM (test code = K) 4.2 mmol/L 3.5-5.1 N CHLORIDE (test code = CL) 108.0 mmol/L 98-107 H CARBON DIOXIDE (test code = CO2) 22.0 mmol/L 21-32 N ANION GAP (test code = GAP) 12.2 10-20 N GLUCOSE (test code = GLU) 104 mg/dL 74-106 N BLOOD UREA NITROGEN (test code = BUN) 23 mg/dL 7-18 H GLOMERULAR FILTRATION RATE (test code = GFR) > 60 mL/min >=60 Estimated GFR by using Modified MDRD formula.Chronic kidney disease is defined as either kidney damageor GFR <60 mL/min/1.73 m2 for >3 months. CREATININE (test code = CREAT) 0.90 mg/dL 0.7-1.3 N BUN/CREATININE RATIO (test code = BUN/CREA) 25.6 10-20 H CALCIUM (test code = CA) 9.0 mg/dL 8.5-10.1 N BASIC METABOLIC [id number] 22:28:00* Test Item Value Reference Range Interpretation Comments SODIUM (test code = NA) 138 mmol/L 136-145 N POTASSIUM (test code = K) 4.2 mmol/L 3.5-5.1 N CHLORIDE (test code = CL) 108.0 mmol/L 98-107 H CARBON DIOXIDE (test code = CO2) mmol/L 21-32 ANION GAP (test code = GAP) 10-20 GLUCOSE (test code = GLU) mg/dL 74-106 BLOOD UREA NITROGEN (test code = BUN) mg/dL 7-18 GLOMERULAR FILTRATION RATE (test code = GFR) mL/min >=60 CREATININE (test code = CREAT) mg/dL 0.7-1.3 BUN/CREATININE RATIO (test code = BUN/CREA) 10-20 CALCIUM (test code = CA) mg/dL 8.5-10.1 CBC W/AUTO [id number] 22:09:00* Test Item Value Reference Range Interpretation Comments WHITE BLOOD CELL (test code = WBC) K/mm3 4.5-12.5 RED BLOOD CELL (test code = RBC) mill/mm3 4.0-5.8 HEMOGLOBIN (test code = HGB) 13.4 gram/dL 13.0-17.5 N HEMATOCRIT (test code = HCT) 42.3 % 42.0-52.0 N MEAN CELL VOLUME (test code = MCV) fL 80-98 MEAN CELL HGB (test code = MCH) picogram 27.0-33.0 MEAN CELL HGB CONCETRATION (test code = MCHC) gram/dL 33.0-36. 0 RED CELL DISTRIBUTION WIDTH (test code = RDW) % 11.6-16. 2 RED CELL DISTRIBUTION WIDTH SD (test code = RDW-SD) fL 37 .0-51.0 PLATELET COUNT (test code = PLT) K/mm3 150-450 MEAN PLATELET VOLUME (test code = MPV) fL 6.7-11.0 NEUTROPHIL % (test code = NT%) % 39.0-69.0 IMMATURE GRANULOCYTE % (test code = IG%) % 0.0-5.0 LYMPHOCYTE % (test code = LY%) % 25.0-55.0 MONOCYTE % (test code = MO%) % 0.0-10.0 EOSINOPHIL % (test code = EO%) % 0.0-5.0 BASOPHIL % (test code = BA%) % 0.0-1.0 NEUTROPHIL # (test code = NT#) K/mm3 1.8-7.7 LYMPHOCYTE # (test code = LY#) K/mm3 1.0-5.0 MONOCYTE # (test code = MO#) K/mm3 0-0.8 EOSINOPHIL # (test code = EO#) K/mm3 0.0-0.5 BASOPHIL # (test code = BA#) K/mm3 0.0-0.2 CBC W/AUTO [id number] 22:09:00* Test Item Value Reference Range Interpretation Comments WHITE BLOOD CELL (test code = WBC) 7.5 K/mm3 4.5-12.5 N RED BLOOD CELL (test code = RBC) 4.89 mill/mm3 4.0-5.8 N HEMOGLOBIN (test code = HGB) 13.4 gram/dL 13.0-17.5 N HEMATOCRIT (test code = HCT) 42.3 % 42.0-52.0 N MEAN CELL VOLUME (test code = MCV) 86.5 fL 80-98 N MEAN CELL HGB (test code = MCH) 27.4 picogram 27.0-33.0 N MEAN CELL HGB CONCETRATION (test code = MCHC) 31.7 gram/dL 33.0-36. 0 L RED CELL DISTRIBUTION WIDTH (test code = RDW) 15.1 % 11.6-16. 2 N RED CELL DISTRIBUTION WIDTH SD (test code = RDW-SD) 47.9 fL 37 .0-51.0 N PLATELET COUNT (test code = PLT) 282 K/mm3 150-450 N MEAN PLATELET VOLUME (test code = MPV) 9.2 fL 6.7-11.0 N NEUTROPHIL % (test code = NT%) 50.0 % 39.0-69.0 N IMMATURE GRANULOCYTE % (test code = IG%) 0.8 % 0.0-5.0 N LYMPHOCYTE % (test code = LY%) 32.1 % 25.0-55.0 N MONOCYTE % (test code = MO%) 10.4 % 0.0-10.0 H EOSINOPHIL % (test code = EO%) 5.5 % 0.0-5.0 H BASOPHIL % (test code = BA%) 1.2 % 0.0-1.0 H NUCLEATED RBC % (test code = NRBC%) 0.0 % 0-0 N NEUTROPHIL # (test code = NT#) 3.74 K/mm3 1.8-7.7 N IMMATURE GRANULOCYTE # (test code = IG#) 0.06 x10 3/uL 0-0.03 H LYMPHOCYTE # (test code = LY#) 2.40 K/mm3 1.0-5.0 N MONOCYTE # (test code = MO#) 0.78 K/mm3 0-0.8 N EOSINOPHIL # (test code = EO#) 0.41 K/mm3 0.0-0.5 N BASOPHIL # (test code = BA#) 0.09 K/mm3 0.0-0.2 N NUCLEATED RBC # (test code = NRBC#) 0.00 K/mm3 0.0-0.1 N MANUAL DIFF REQUIRED (test code = MDIFF) NO - CT ABD PELVIS W/O [id number] 21:48:00 Name: LAVONNE CONTRERAS [facility] : 1960 Age/S: 58 / M [address] [facility] Unit #: [id number] Loc: [place] [address] Phys: Tamara Castro MD Acct: [id number] Dis Date: Status: REG ER PHONE #: [phone] Exam Date: 01/28/20192104 FAX #: [phone] Reason: ttp lower abdomen EXAMS: CPT CODE: [id number] CT ABD PELVIS W/O CONT 33949 EXAM: CT of the abdomen and pelvis without contrast; INFORMATION: Suprapubic catheter partially dislodged; surrounding redness; graft technique: CT dose reduction protocol; 5 mm cuts through the abdomen and pelvis without contrast. IMPRESSION: 1. No significant change compared with the recent study from January 24, 2019; suprapubic pigtail cystostomy catheter appears well-positioned. It is still within the urinary bladder. 2. Again seen is an oval-shaped fluid collection with moderately thick wall in the peroneal region. This is suspicious for an abscess. 3. Penile implant. 3. Overall, no significant change. at 2147 Reported and signed by: Mark Pires M.D. CC: Tamara Castro MD Technologist:Marilin Olmedo RT(R); TONY Pak CTDI: DLP: Trnscb Date/Time: 01/28/2019 (2147) [email or web address] Orig Print D/T: S: 01/28/2019 (2150) PAGE 1 Signed Report - DUP AB/PEL/SC/[id number] 14:14:00 [place]: St: REG Name: LAVONNE BAEZA [facility] : [birth year] Age/S: 58/M [address] Unit #: [id number] Loc: [place] [address] Phys: Rigo Ayoub MD Acct: [id number] Dis Date: Status: REG ER PHONE #: [phone] Exam Date: 01/25/2019 4210 FAX #: [phone] Reason: SEE REASON ON US SCROTUM AND CNT EXAMS: CPT CODE: [id number] DUP AB/PEL/SC/LTD 18625 EXAM: - US SCROTUM AND CNTS, - DUP AB/PEL/SC/LTD HISTORY: pain Location code:C3 COMPARISON: None TECHNIQUE: Real time sonography was done with the variable megahertz high frequency linear transducer. Spectral Doppler and color Doppler sonographic analysis of the testicles was perfo rmed. FINDINGS: Multiple images are limited due to artifact and shadowing from patient's penile prosthesis. RIG HT TESTICLE: 4.0 x 1.8 x 1.7cm. Normal arterial flow. No masses. LEFT TEST ICLE: 4.8 x 2.6 x 2.2cm. Normal arterial flow. No masses. EPIDYDIMI: Marina l right epididymis. The left epididymis appears slightly hypoechoic and h ypervascular. Multiple, subcentimeter epididymal head cysts/spermatoceles are present. SCROTUM: No right-sided hydrocele. Small, simple left hydro dulce; nonspecific and may be reactive. No varicocele or hernia. IMPRESSION: 1. No evidence of testicular torsion or in tratesticular mass. 2. Hypoechoic and hypervascular appearance of the le ft epididymis suggests mild acute left epididymitis, with simple reactiv e small left hydrocele. No evidence of epididymoorchitis. at 1414 Reported and sig tuan by: Jayde Garcia MD CC: Technologist: Duane Donaldson RDMS Trnscrd Date/Time/By: 01/25/2019 (8964) : By: [email or web address] PAGE 1 Signed Report [place]: St: REG Name: Opal CONTRERAS MEENU [facility] : 1960 Age/ S: 58/M [address] Unit #: [id number] Loc: [place] [address] Phys: Rigo Ayoub MD Acct: [id number] Dis Date: Status: REG ER PHONE #: [phone] Exam Date: 01/25/2019 5206 FAX #: [phone] Reason: SEE REASON ON US SCROTUM AND CNT EXAMS: CPT CODE: [id number] DUP AB/PEL/SC/LTD 40393 <Continued> Orig Print D/T: S: 01/25/2019 (3129) PAGE 2 Signed Report - US SCROTUM AND CNTS 2019-01-25 14:14:00 [place]: St: REG Name: LAVONNE BAEZA [facility] : [birth year] 63 Age/S: 58/M [address] Unit #: [id number] Loc: [place] [address] Phys: Rigo Ayoub MD Acct: [id number] Dis Date: Status: [facility] ER PHONE #: [phone] Exam Date: 01/25/2019 8871 FAX #: [phone] Reason: pain EXAMS: CPT CODE: [id number] US SCROTUM AND CNTS 48305 EXAM: - US SCROTUM AND CNTS, - DUP AB/PEL/SC/LTD HISTORY: pain Location code:C3 COMPARISON: None TECHNIQUE: Real time sonography was done with the variable megahertz high frequency linear transducer. Spectral Doppler and color Doppler sonographic analysis of the testicles was perfo rmed. FINDINGS: Multiple images are limited due to artifact and shadowing from patient's penile prosthesis. RIG HT TESTICLE: 4.0 x 1.8 x 1.7cm. Normal arterial flow. No masses. LEFT TEST ICLE: 4.8 x 2.6 x 2.2cm. Normal arterial flow. No masses. EPIDYDIMI: Marina l right epididymis. The left epididymis appears slightly hypoechoic and h ypervascular. Multiple, subcentimeter epididymal head cysts/spermatoceles are present. SCROTUM: No right-sided hydrocele. Small, simple left hydro dulce; nonspecific and may be reactive. No varicocele or hernia. IMPRESSION: 1. No evidence of testicular torsion or in tratesticular mass. 2. Hypoechoic and hypervascular appearance of the le ft epididymis suggests mild acute left epididymitis, with simple reactiv e small left hydrocele. No evidence of epididymoorchitis. at 1414 Reported and sig tuan by: Jayde Garcia MD CC: Technologist: Duane Donaldson [facility] Trnscrd Date/Time/By: 01/25/2019 (0584) : By: [email or web address] PAGE 1 Signed Report [place]: St: REG Name: DIANEOpal [facility] : 1960 Age/ S: 58/M [address] Unit #: [id number] Loc: [place] [address] Phys: Rigo Ayoub MD Acct: [id number] Dis Date: Status: REG ER PHONE #: [phone] Exam Date: 01/25/2019 1330 FAX #: [phone] Reason: pain EXAMS: CPT CODE: [id number] US SCROTUM AND CNTS 58309 <Continued> Orig Print D/T: S: 01/25/2019 (2280) PAGE 2 Signed Report PROCALCITONIN (PCT) 2019-01-25 12:11:00* Test Item Value Reference Range Interpretation Comments PROCALCITONIN (PCT) (test code = PROCAL) < 0.05 NG/ML (PCT) Normal Value: <0.05 NG/ML <0.5 NG/ML - low risk of severe sepsis and/or septic shock>2.0 NG/ML - high risk of severe sepsis and/or septic shock PCT concentrations between 0.5 and 2.0 NG/ML should beinterpreted taking into account the patient's history.It is recommended to retest PCT within 6-24 hours if anyconcentrations between 0.5-2.0 NG/ML are obtained. BASIC METABOLIC [id number] 11:39:00* Test Item Value Reference Range Interpretation Comments SODIUM (test code = NA) 138 mmol/L 137-145 N POTASSIUM (test code = K) 4.2 mmol/L 3.4-5.0 N CHLORIDE (test code = CL) 104 mmol/L 98-107 N CARBON DIOXIDE (test code = CO2) 26 mmol/L 22-30 N GLUCOSE (test code = GLU) 102 mg/dL 74-106 N BLOOD UREA NITROGEN (test code = BUN) 17 mg/dL 9-20 N GLOMERULAR FILTRATION RATE (test code = GFR) 106 >60 The estimated glomerular filtration rate is computed usingpatient race, age (>18), sex, and serum creatinine. If anyof the needed data elements are missing the Laboratory cannot compute an estimation of the glomerular filtration rate. CREATININE (test code = CREAT) 0.8 mg/dL 0.7-1.3 N CALCIUM (test code = CA) 9.2 mg/dL 8.4-10.2 N LIVER FUNCTION [id number] 11:39:00* Test Item Value Reference Range Interpretation Comments TOTAL PROTEIN (test code = PROT) 7.5 g/dL 6.3-8.2 N ALBUMIN (test code = ALB) 4.3 g/dL 3.5-5.0 N BILIRUBIN TOTAL (test code = BILT) 0.4 mg/dL 0.2-1.3 N BILIRUBIN CONJUGATED (test code = BILCON) 0 mg/dL 0-0.3 N ~~~~~~~~~~~~~~~~~~~~~~~~~~~~~~~~~~~~~~~~~~~~~~~~~~~~~~~~~~~~CONJUGATED BILIRUBIN IS THE REPLACEMENT ASSAY FOR DIRECTBILIRUBIN.~~~~~~~~~~~~~~~~~~~~~~~~~~~~~~~~~~~~~~~~~~~~~~~~~~~~~~~~~~~~ BILIRUBIN UNCONJUGATED (test code = BILUNC) 0.1 mg/dL 0-1.1 N SGOT/AST (test code = AST) 21 U/L 15-46 N SGPT/ALT (test code = ALT) 24 U/L 13-69 N ALKALINE PHOSPHATASE (test code = ALKP) 129 U/L 38-126 H [id number] 11:39:00* Test Item Value Reference Range Interpretation Comments LIPASE (test code = LIP) 272 U/L 23-300 N TROPONIN I [id number] 11:38:00* Test Item Value Reference Range Interpretation Comments TROPONIN I RAPID (test code = TROPIRAP) 0.00 ng/mL 0.00-0.079 N ISTAT TROPONIN I CRITERIA0.00-0.08 ng/mL - Negative>0.08 ng/mL - Positive The use of serial sampling and testing protocol is arecommended practice.An elevated troponin level alone is often not sufficient fordiagnosis of myocardial infarction. Troponin results obtained by different assays may vary.Evaluation of the extent of myocardial damage based onincrease of troponin would be valid only if similarmethodology is used. PROTHROMBIN [id number] 11:34:00* Test Item Value Reference Range Interpretation Comments PROTHROMBIN TIME PATIENT (test code = PTP) 10.7 SECONDS 9.2-12.1 N INTERNATIONAL NORMAL RATIO (test code = INR) 1.0 The INR is to be used only for monitoring ORAL ANTICOAGULANTTHERAPY. Indication INR Value1. Prophylaxis/treatment of: Venous Thrombosis, Pulmonary Embolism 2.0 - 3.02. Prevention of systemic embolism from: Tissue heart valves 2.0 - 3.0 Acute myocardial infarction (to present systemic embolism)* 2.0 - 3.0 Valvular heart disease 2.0 - 3.0 Atrial fibrillation 2.0 - 3.03. Mechanical prosthetic valves (high risk) 2.5 - 3.5 * If oral anticoagulant therapy is elected to preventrecurrent myocardial infarction, an INR of 2.5-3.5 isrecommended, consistent with Food and Drug Administrationrecommendations. THROMBOPLASTIN TIME [id number] 11:34:00* Test Item Value Reference Range Interpretation Comments THROMBOPLASTIN TIME PARTIAL (test code = PTT) 29.4 SECONDS 23.4-37. 0 N Therapeutic Range for Heparin EFFECTIVE 11/12/12 Heparin IU/mL aPTT Seconds0.3 64.30.7 88.8 UA RFLX MICR CULT IF [id number] 11:30:00* Test Item Value Reference Range Interpretation Comments UA COLOR (test code = COLU) Yaritza Yellow A UA APPEARANCE (test code = APPU) Clear Clear UA GLUCOSE DIPSTICK (test code = DGLUU) Negative Negative UA BILIRUBIN DIPSTICK (test code = BILU) Negative Negative UA KETONE DIPSTICK (test code = KETU) Negative mg/dL Negative UA SPECIFIC GRAVITY (test code = SGU) 1.010 <1.030 UA BLOOD DIPSTICK (test code = MERARY) 3+ Negative A UA PH DIPSTICK (test code = JAISON) 7.0 5.0-8.0 UA PROTEIN DIPSTICK (test code = PROU) 30 (1+) mg/dL Negative A UA UROBILINOGEN DIPSTICK (test code = URO) Negative mg/dL Negative UA NITRITE DIPSTICK (test code = NOEL) Negative Negative UA LEUKOCYTE ESTERASE DIPSTICK (test code = LEUU) 1+ Nega tive A UA WBC (test code = WBCUR) 21-30 /HPF <4-5 A > 10 WBC/HPF = PYURIA PRESENT URINE CULTURE PROCESSED UA RBC (test code = RBCU) >100 /HPF <4-5 A UA BACTERIA (test code = BACU) Rare /HPF None-Rare UA SQUAMOUS CELLS (test code = SQU) 0-5 (RARE) /HPF 0-5 (RARE) UA HYALINE CAST (test code = HYALU) 0-3 /LPF <4-5 UA MUCUS (test code = MUCU) Rare /LPF <Rare Indication for culture: Temperature > 100.4 FCBC W/AUTO [id number] 11:25:00* Test Item Value Reference Range Interpretation Comments WHITE BLOOD CELL (test code = WBC) 8.2 x10 3/uL 5.0-12.0 N RED BLOOD CELL (test code = RBC) 5.13 x10 6/uL 4.70-6.10 N HEMOGLOBIN (test code = HGB) 14.0 g/dL 14.0-18.0 N HEMATOCRIT (test code = HCT) 43.4 % 37.0-49.0 N MEAN CELL VOLUME (test code = MCV) 85 fL 80-94 N MEAN CELL HGB (test code = MCH) 27.3 pg 27-31 N MEAN CELL HGB CONCENTRATION (test code = MCHC) 32.3 g/dL 33-37 L RED CELL DISTRIBUTION WIDTH (test code = RDW) 15.5 % 11.5-15. 5 N PLATELET COUNT (test code = PLT) 271 x10 3/uL 130-400 N MEAN PLATELET VOLUME (test code = MPV) 9.1 fL 9.4-16.4 L NEUTROPHIL % (test code = NT%) 53.5 % 43-65 N IMMATURE GRANULOCYTE % (test code = IG%) 2.0 % 0.0-2.0 N LYMPHOCYTE % (test code = LY%) 31.2 % 20.5-45.5 N MONOCYTE % (test code = MO%) 8.9 % 5.5-11.7 N EOSINOPHIL % (test code = EO%) 3.4 % 0.9-2.9 H BASOPHIL % (test code = BA%) 1.0 % 0.2-1.0 N NUCLEATED RBC % (test code = NRBC%) 0.0 % 0-1.0 N NEUTROPHIL # (test code = NT#) 4.39 x10 3/uL 2.2-4.8 N IMMATURE GRANULOCYTE # (test code = IG#) 0.16 x10 3/uL 0-0.03 H LYMPHOCYTE # (test code = LY#) 2.56 x10 3/uL 1.3-2.9 N MONOCYTE # (test code = MO#) 0.73 x10 3/uL 0.3-0.8 N EOSINOPHIL # (test code = EO#) 0.28 x10 3/uL 0.0-0.2 H BASOPHIL # (test code = BA#) 0.08 x10 3/uL 0.0-0.1 N LACTIC ACID [id number] 11:22:00* Test Item Value Reference Range Interpretation Comments LACTIC ACID POC (test code = LACTP) 1.71 mmol/L 0.7-2.0 N - XR CHEST 1 [id number] 09:48:00 [place]: St: REG [facility] [place] [facility] [birth year] Age/S: 58/M [address] Unit #: [id number] Loc: [place] [address] Phys: Rigo Ayoub MD Acct: [id number] Dis Date: Status: REG ER PHONE #: [phone] Exam Date: 01/25/2019 0936 FAX #: [phone] Reason: CODE SEPSIS EXAMS: CPT CODE: [id number] XR CHEST 1 V 76089 EXAM: - XR CHEST 1 V Location code:C3 HISTORY: Clinical sepsis COMPARIS ON: 09/22/2018. FINDINGS: Frontal view of the chest i s submitted. Cardiac silhouette is slightly enlarged, unchanged. Th e lungs are clear of focal consolidation. No effusion or evidence of pneum othorax.. No acute osseous pathology. IMPRESSION 1. No acute cardiopulmonary process. Electronically Sig tuan by Jayde Garcia MD on 01/25/2019 at 094 8 Reported and signed by: Liana Garcia MD CC: Technologist: DEBORAH [facility] Date/Time/By: 01/25/2019 (0948) : By: [email or web address] PAGE 1 Signed Report [place]: St: REG Name: LAVONNE CONTRERAS : 1960 Age/S: 58/M [address] Unit #: [id number] Loc: [place] [address] Phys: Rigo Ayoub MD Acct: [id number] Dis Date: Status: R EG ER PHONE #: [phone] Exam Date: 0 01/25/2019 0936 FAX #: [phone] Reason: CODE SEPSIS EXAMS: CPT CODE: [id number] XR CHEST 1 V 55753 <Continued> Orig Print D/T: S: 01/25/2019 (0951) PAGE 2 Signed Report PROCALCITONIN (PCT)2019-01-24 22:20:00* Test Item Value Reference Range Interpretation Comments PROCALCITONIN (PCT) (test code = PROCAL) < 0.05 NG/ML (PCT) Normal Value: <0.05 NG/ML <0.5 NG/ML - low risk of severe sepsis and/or septic shock>2.0 NG/ML - high risk of severe sepsis and/or septic shock PCT concentrations between 0.5 and 2.0 NG/ML should beinterpreted taking into account the patient's history.It is recommended to retest PCT within 6-24 hours if anyconcentrations between 0.5-2.0 NG/ML are obtained. [id number] 22:09:00* Test Item Value Reference Range Interpretation Comments D-DIMER (test code = DDIMER) 1218 ng/mLFEU 0-500 HH Critical Value reported toFirst Name:[id number] Last Name:RESULTS READ BACK AND VERIFIEDby SARAY, on 01/24/19, @ 1433.THE DDIMER METHOD IS USED IN THE EXCLUSION OF DEEP VEINTHROMBOSIS AND/OR PULMONARY EMBOLISM AND THE CLINICAL CUT-OFF VALUE FOR EXCLUSION (500 NG/ML FEU) OF THESE CONDITIONSIS VALIDATED BY THE PUMP SERVICER OF THE METHOD. A NEGATIVE DDIMER RESULT WHEN COMBINED WITH A CLINICALASSESSMENT OF LOW PRETEST PROBABILITY HAS BEEN SHOWN TO HAVEA HIGH NEGATIVE PREDICTIVE VALUE OF DVT OR PE. D-DIMER VALUES >500 ng/mL ARE NOT DIAGNOSTIC FOR DVT,PEOR DIC WITHOUT OTHER CONFIRMATORY TESTS AND APPROPRIATECLINICAL EVALUATIONS. [id number] 22:01:00* Test Item Value Reference Range Interpretation Comments LIPASE (test code = LIP) 196 U/L 23-300 N LACTIC ACID [id number] 21:57:00* Test Item Value Reference Range Interpretation Comments LACTIC ACID POC (test code = LACTP) 1.18 mmol/L 0.7-2.0 N - CT ABD PELVIS W/O [id number] 21:54:00 [place]: St: REG Name: CAT LINOLAVONNE [facility] : 2 Age/S: 58/M [address] Unit: [id number] Loc: [place] [address] Phys: Blade Howard MD Acct: [id number] Dis Date: Status: REG ER PHONE #: [phone] Exam Date: 01/24/2019 2801 FAX #: [phone] Reason: ABDOMINAL PAIN POST SUPRAPUBIC CATHETER EXAMS: CPT CODE: [id number] CT ABD PELVIS W/O CONT 14077 CT Abdomen and Pelvis without cont rast. Location: Clinical indication: 58-year-old with abdominal pain post suprapubic catheter. Comparison: No ne Technique: Computed axial images were obtained from the [facility] through the pubic symphysis without IV contrast. Suboptimal evaluation of viscera due to lack of contrast. Up to date CT equipment and rad iation dose technique were utilized. Findings: Abd omen: Lung bases are clear. The liver, spleen, adrenal glands, and pancre as are without acute abnormality on this unenhanced CT. The gallbladder h as been removed. No renal calculus or hydronephrosis. No bowel obstructi on. There is been prior bowel surgery, with multiple suture lines noted i n the right lower quadrant. Pelvis: [place] for penile prosthese s are present in the anterior pelvic giraldo. There is a suprapubic cathete r. The loop appears to be well positioned in the deflated urinary bladder . Prostate is not enlarged. There is a smoothly marginated round mass in the lower pelvis which measures 3.3 x 3.1 cm. It is unclear if this is c ystic or soft tissue. This abuts sigmoid colon and is unchanged from the January 13, 2019 exam, but is new when compared with the August 13, 2018 exam. Impression: 1. Urinary bladder is decompressed. Suprapubic catheter appears to be well-positioned within the lumen. 2. Indeterminate smoothly marginated 3.3 cm mass in the lo wer pelvis, abutting the sigmoid colon. It is unclear if this is solid or complex cystic. This is unchanged when compared with the January CT but is new when compared with August 13, 2018 CT. This could potentially be a seroma. Neoplastic process is considered unlikely but cannot be entirely excluded based on this exam. Consider follow- up with elective MRI. PAGE 1 Signed Report (CONTINUED) [place]: St: REG Name: LAVONNE CONTRERAS [facility] [place] : 1960 Age/S: 58/M [address] Unit: [id number] Loc: [place] [address] Phys: Blade Howard MD Acct: [id number] Dis Date: Status: REG ER PHONE #: [phone] Exam Date: 01/24/20195 FAX #: [phone] Reason: ABDOMINAL PAIN POST SUPRAPUBIC CATHETER EXAMS: CPT CODE: [id number] CT ABD PELVIS W/O CONT 99513 < Continued> at 2154 Reported and signed by: Tony Forbes MD CC: Technologist: JOSE Cedillord Dt/Tm: 01/24/2019 (2153) [id number] Orig Print D/T: S: 01/24/2019 (7 PAGE 2 Signed Report URINALYSIS [id number] 21:17:00* Test Item Value Reference Range Interpretation Comments UA COLOR (test code = COLU) Yellow Yellow UA APPEARANCE (test code = APPU) Slightly-Cloudy Clear UA GLUCOSE DIPSTICK (test code = DGLUU) Negative Negative UA BILIRUBIN DIPSTICK (test code = BILU) Negative Negative UA KETONE DIPSTICK (test code = KETU) Negative mg/dL Negative UA SPECIFIC GRAVITY (test code = SGU) 1.023 <1.030 UA BLOOD DIPSTICK (test code = MERARY) 3+ Negative A UA PH DIPSTICK (test code = JAISON) 6.0 5.0-8.0 UA PROTEIN DIPSTICK (test code = PROU) 100 (2+) mg/dL Negative A UA UROBILINOGEN DIPSTICK (test code = URO) Negative mg/dL Negative UA NITRITE DIPSTICK (test code = NOEL) Negative Negative UA LEUKOCYTE ESTERASE DIPSTICK (test code = LEUU) TRACE Nega tive A UA WBC (test code = WBCU) 11-20 /HPF <4-5 A UA RBC (test code = RBCU) >100 /HPF <4-5 A UA BACTERIA (test code = BACU) 1+ /HPF None-Rare A UA SQUAMOUS CELLS (test code = SQU) 0-5 (RARE) /HPF 0-5 (RARE) UA TRANSITIONAL CELLS (test code = TRANU) Rare /HPF <Rare A UA MUCUS (test code = MUCU) 1+ /LPF <Rare A UA YEAST (BUDDING) (test code = YEASTUBD) 1+ /HPF None A BASIC METABOLIC [id number] 21:13:00* Test Item Value Reference Range Interpretation Comments SODIUM (test code = NA) 137 mmol/L 137-145 N POTASSIUM (test code = K) 4.2 mmol/L 3.4-5.0 N CHLORIDE (test code = CL) 105 mmol/L 98-107 N CARBON DIOXIDE (test code = CO2) 23 mmol/L 22-30 N GLUCOSE (test code = GLU) 132 mg/dL 74-106 H BLOOD UREA NITROGEN (test code = BUN) 21 mg/dL 9-20 H GLOMERULAR FILTRATION RATE (test code = GFR) 106 >60 The estimated glomerular filtration rate is computed usingpatient race, age (>18), sex, and serum creatinine. If anyof the needed data elements are missing the Laboratory cannot compute an estimation of the glomerular filtration rate. CREATININE (test code = CREAT) 0.8 mg/dL 0.7-1.3 N CALCIUM (test code = CA) 9.4 mg/dL 8.4-10.2 N CBC W/AUTO [id number] 20:57:00* Test Item Value Reference Range Interpretation Comments WHITE BLOOD CELL (test code = WBC) 10.4 x10 3/uL 5.0-12.0 N RED BLOOD CELL (test code = RBC) 5.14 x10 6/uL 4.70-6.10 N HEMOGLOBIN (test code = HGB) 14.0 g/dL 14.0-18.0 N HEMATOCRIT (test code = HCT) 43.3 % 37.0-49.0 N MEAN CELL VOLUME (test code = MCV) 84 fL 80-94 N MEAN CELL HGB (test code = MCH) 27.2 pg 27-31 N MEAN CELL HGB CONCENTRATION (test code = MCHC) 32.3 g/dL 33-37 L RED CELL DISTRIBUTION WIDTH (test code = RDW) 15.7 % 11.5-15. 5 H PLATELET COUNT (test code = PLT) 291 x10 3/uL 130-400 N MEAN PLATELET VOLUME (test code = MPV) 8.9 fL 9.4-16.4 L NEUTROPHIL % (test code = NT%) 67.9 % 43-65 H IMMATURE GRANULOCYTE % (test code = IG%) 2.2 % 0.0-2.0 H LYMPHOCYTE % (test code = LY%) 19.7 % 20.5-45.5 L MONOCYTE % (test code = MO%) 7.1 % 5.5-11.7 N EOSINOPHIL % (test code = EO%) 2.1 % 0.9-2.9 N BASOPHIL % (test code = BA%) 1.0 % 0.2-1.0 N NUCLEATED RBC % (test code = NRBC%) 0.0 % 0-1.0 N NEUTROPHIL # (test code = NT#) 7.09 x10 3/uL 2.2-4.8 H IMMATURE GRANULOCYTE # (test code = IG#) 0.23 x10 3/uL 0-0.03 H LYMPHOCYTE # (test code = LY#) 2.06 x10 3/uL 1.3-2.9 N MONOCYTE # (test code = MO#) 0.74 x10 3/uL 0.3-0.8 N EOSINOPHIL # (test code = EO#) 0.22 x10 3/uL 0.0-0.2 H BASOPHIL # (test code = BA#) 0.10 x10 3/uL 0.0-0.1 N CBC W/MANUAL [id number] 13:41:00* Test Item Value Reference Range Interpretation Comments WHITE BLOOD CELL (test code = WBC) 8.0 K/mm3 4.5-12.5 N RED BLOOD CELL (test code = RBC) 4.76 mill/mm3 4.0-5.8 N HEMOGLOBIN (test code = HGB) 13.1 gram/dL 13.0-17.5 N HEMATOCRIT (test code = HCT) 41.7 % 42.0-52.0 L MEAN CELL VOLUME (test code = MCV) 87.6 fL 80-98 N MEAN CELL HGB (test code = MCH) 27.5 picogram 27.0-33.0 N MEAN CELL HGB CONCETRATION (test code = MCHC) 31.4 gram/dL 33.0-36. 0 L RED CELL DISTRIBUTION WIDTH (test code = RDW) 15.7 % 11.6-16. 2 N RED CELL DISTRIBUTION WIDTH SD (test code = RDW-SD) 49.9 fL 37 .0-51.0 N PLATELET COUNT (test code = PLT) 308 K/mm3 150-450 N MEAN PLATELET VOLUME (test code = MPV) 9.0 fL 6.7-11.0 N IMMATURE GRANULOCYTE % (test code = IG%) 18.2 % 0.0-5.0 H "The appearance of immature granulocytes (myelocytes,pro-myelocytes, meta-myelocytes) in the peripheral blood ofnon- individuals can indicate a response toinfection, inflammation, or other stimulus to the bon[place]" NUCLEATED RBC % (test code = NRBC%) 0.2 % 0-0 H NEUTROPHIL # (test code = NT#) 3.79 K/mm3 1.8-7.7 N IMMATURE GRANULOCYTE # (test code = IG#) 1.46 x10 3/uL 0-0.03 H LYMPHOCYTE # (test code = LY#) 1.83 K/mm3 1.0-5.0 N MONOCYTE # (test code = MO#) 0.65 K/mm3 0-0.8 N EOSINOPHIL # (test code = EO#) 0.25 K/mm3 0.0-0.5 N BASOPHIL # (test code = BA#) 0.05 K/mm3 0.0-0.2 N NUCLEATED RBC # (test code = NRBC#) 0.02 K/mm3 0.0-0.1 N MANUAL DIFF REQUIRED (test code = MDIFF) YES STAIN ACCEPTABILITY (test code = STN ACCEPTABLE) STAIN ACCEPTABLE TOTAL CELLS COUNTED (test code = TCC) 100 #CELLS SEGMENTED NEUTROPHILS (test code = SEG) 54 % 39-69 N BAND NEUTROPHIL (test code = BAND) 6 % 0-10 N LYMPHOCYTE (test code = LYMPH) 26 % 25-55 N MONOCYTE (test code = MON) 5 % 0-10 N EOSINOPHIL (test code = EOS) 3 % 0.0-5.0 N BASOPHIL (test code = BASO) 1 % 0-1.0 N METAMYELOCYTE (test code = META) 3 % 0-0 H MYELOCYTE (test code = MYELO) 2 % 0.0-0.0 H NUCLEATED RED BLOOD CELL (test code = NRBC) 3 % 0.0-1.0 H POLYCHROMASIA (test code = POLC) 2+ HYPOCHROMIA (test code = HYPO) 1+ ANISOCYTOSIS (test code = ANISO) 1+ PLATELET ESTIMATE (test code = PLTEST) ADEQUATE PLATELET MORPHOLOGY (test code = PLTMORPH) NORMAL BASIC METABOLIC [id number] 11:05:00* Test Item Value Reference Range Interpretation Comments SODIUM (test code = NA) 140 mmol/L 136-145 N POTASSIUM (test code = K) 4.2 mmol/L 3.5-5.1 N CHLORIDE (test code = CL) 104.0 mmol/L 98-107 N CARBON DIOXIDE (test code = CO2) 31.0 mmol/L 21-32 N ANION GAP (test code = GAP) 9.2 10-20 L GLUCOSE (test code = GLU) 143 mg/dL 74-106 H BLOOD UREA NITROGEN (test code = BUN) 11 mg/dL 7-18 N GLOMERULAR FILTRATION RATE (test code = GFR) > 60 mL/min >=60 Estimated GFR by using Modified MDRD formula.Chronic kidney disease is defined as either kidney damageor GFR <60 mL/min/1.73 m2 for >3 months. CREATININE (test code = CREAT) 1.00 mg/dL 0.7-1.3 N BUN/CREATININE RATIO (test code = BUN/CREA) 11.5 10-20 N CALCIUM (test code = CA) 8.7 mg/dL 8.5-10.1 N BASIC METABOLIC [id number] 10:42:00* Test Item Value Reference Range Interpretation Comments SODIUM (test code = NA) 140 mmol/L 136-145 N POTASSIUM (test code = K) 4.2 mmol/L 3.5-5.1 N CHLORIDE (test code = CL) 104.0 mmol/L 98-107 N CARBON DIOXIDE (test code = CO2) mmol/L 21-32 ANION GAP (test code = GAP) 10-20 GLUCOSE (test code = GLU) mg/dL 74-106 BLOOD UREA NITROGEN (test code = BUN) mg/dL 7-18 GLOMERULAR FILTRATION RATE (test code = GFR) mL/min >=60 CREATININE (test code = CREAT) mg/dL 0.7-1.3 BUN/CREATININE RATIO (test code = BUN/CREA) 10-20 CALCIUM (test code = CA) mg/dL 8.5-10.1 CBC W/MANUAL [id number] 10:11:00* Test Item Value Reference Range Interpretation Comments WHITE BLOOD CELL (test code = WBC) 8.0 K/mm3 4.5-12.5 N RED BLOOD CELL (test code = RBC) 4.76 mill/mm3 4.0-5.8 N HEMOGLOBIN (test code = HGB) 13.1 gram/dL 13.0-17.5 N HEMATOCRIT (test code = HCT) 41.7 % 42.0-52.0 L MEAN CELL VOLUME (test code = MCV) 87.6 fL 80-98 N MEAN CELL HGB (test code = MCH) 27.5 picogram 27.0-33.0 N MEAN CELL HGB CONCETRATION (test code = MCHC) 31.4 gram/dL 33.0-36. 0 L RED CELL DISTRIBUTION WIDTH (test code = RDW) 15.7 % 11.6-16. 2 N RED CELL DISTRIBUTION WIDTH SD (test code = RDW-SD) 49.9 fL 37 .0-51.0 N PLATELET COUNT (test code = PLT) 308 K/mm3 150-450 N MEAN PLATELET VOLUME (test code = MPV) 9.0 fL 6.7-11.0 N IMMATURE GRANULOCYTE % (test code = IG%) 18.2 % 0.0-5.0 H "The appearance of immature granulocytes (myelocytes,pro-myelocytes, meta-myelocytes) in the peripheral blood ofnon- individuals can indicate a response toinfection, inflammation, or other stimulus to the bonemarrow" NUCLEATED RBC % (test code = NRBC%) 0.2 % 0-0 H NEUTROPHIL # (test code = NT#) 3.79 K/mm3 1.8-7.7 N IMMATURE GRANULOCYTE # (test code = IG#) 1.46 x10 3/uL 0-0.03 H LYMPHOCYTE # (test code = LY#) 1.83 K/mm3 1.0-5.0 N MONOCYTE # (test code = MO#) 0.65 K/mm3 0-0.8 N EOSINOPHIL # (test code = EO#) 0.25 K/mm3 0.0-0.5 N BASOPHIL # (test code = BA#) 0.05 K/mm3 0.0-0.2 N NUCLEATED RBC # (test code = NRBC#) 0.02 K/mm3 0.0-0.1 N MANUAL DIFF REQUIRED (test code = MDIFF) YES STAIN ACCEPTABILITY (test code = STN ACCEPTABLE) TOTAL CELLS COUNTED (test code = TCC) #CELLS SEGMENTED NEUTROPHILS (test code = SEG) % 39-69 LYMPHOCYTE (test code = LYMPH) % 25-55 MONOCYTE (test code = MON) % 0-10 EOSINOPHIL (test code = EOS) % 0.0-5.0 CABOT RINGS (test code = CAB) MORPHOLOGY COMMENT (test code = MOC) PLATELET ESTIMATE (test code = PLTEST) PLATELET MORPHOLOGY (test code = PLTMORPH) CBC W/MANUAL [id number] 10:11:00* Test Item Value Reference Range Interpretation Comments WHITE BLOOD CELL (test code = WBC) 8.0 K/mm3 4.5-12.5 N RED BLOOD CELL (test code = RBC) 4.76 mill/mm3 4.0-5.8 N HEMOGLOBIN (test code = HGB) 13.1 gram/dL 13.0-17.5 N HEMATOCRIT (test code = HCT) 41.7 % 42.0-52.0 L MEAN CELL VOLUME (test code = MCV) 87.6 fL 80-98 N MEAN CELL HGB (test code = MCH) 27.5 picogram 27.0-33.0 N MEAN CELL HGB CONCETRATION (test code = MCHC) 31.4 gram/dL 33.0-36. 0 L RED CELL DISTRIBUTION WIDTH (test code = RDW) 15.7 % 11.6-16. 2 N RED CELL DISTRIBUTION WIDTH SD (test code = RDW-SD) 49.9 fL 37 .0-51.0 N PLATELET COUNT (test code = PLT) 308 K/mm3 150-450 N MEAN PLATELET VOLUME (test code = MPV) 9.0 fL 6.7-11.0 N IMMATURE GRANULOCYTE % (test code = IG%) 18.2 % 0.0-5.0 H "The appearance of immature granulocytes (myelocytes,pro-myelocytes, meta-myelocytes) in the peripheral blood ofnon- individuals can indicate a response toinfection, inflammation, or other stimulus to the bonemarrow" NUCLEATED RBC % (test code = NRBC%) 0.2 % 0-0 H NEUTROPHIL # (test code = NT#) 3.79 K/mm3 1.8-7.7 N IMMATURE GRANULOCYTE # (test code = IG#) 1.46 x10 3/uL 0-0.03 H LYMPHOCYTE # (test code = LY#) 1.83 K/mm3 1.0-5.0 N MONOCYTE # (test code = MO#) 0.65 K/mm3 0-0.8 N EOSINOPHIL # (test code = EO#) 0.25 K/mm3 0.0-0.5 N BASOPHIL # (test code = BA#) 0.05 K/mm3 0.0-0.2 N NUCLEATED RBC # (test code = NRBC#) 0.02 K/mm3 0.0-0.1 N MANUAL DIFF REQUIRED (test code = MDIFF) YES STAIN ACCEPTABILITY (test code = STN ACCEPTABLE) TOTAL CELLS COUNTED (test code = TCC) #CELLS SEGMENTED NEUTROPHILS (test code = SEG) % 39-69 LYMPHOCYTE (test code = LYMPH) % 25-55 MONOCYTE (test code = MON) % 0-10 EOSINOPHIL (test code = EOS) % 0.0-5.0 MORPHOLOGY COMMENT (test code = MOC) PLATELET ESTIMATE (test code = PLTEST) PLATELET MORPHOLOGY (test code = PLTMORPH) CBC W/MANUAL [id number] 10:11:00* Test Item Value Reference Range Interpretation Comments WHITE BLOOD CELL (test code = WBC) 8.0 K/mm3 4.5-12.5 N RED BLOOD CELL (test code = RBC) 4.76 mill/mm3 4.0-5.8 N HEMOGLOBIN (test code = HGB) 13.1 gram/dL 13.0-17.5 N HEMATOCRIT (test code = HCT) 41.7 % 42.0-52.0 L MEAN CELL VOLUME (test code = MCV) 87.6 fL 80-98 N MEAN CELL HGB (test code = MCH) 27.5 picogram 27.0-33.0 N MEAN CELL HGB CONCETRATION (test code = MCHC) 31.4 gram/dL 33.0-36. 0 L RED CELL DISTRIBUTION WIDTH (test code = RDW) 15.7 % 11.6-16. 2 N RED CELL DISTRIBUTION WIDTH SD (test code = RDW-SD) 49.9 fL 37 .0-51.0 N PLATELET COUNT (test code = PLT) 308 K/mm3 150-450 N MEAN PLATELET VOLUME (test code = MPV) 9.0 fL 6.7-11.0 N IMMATURE GRANULOCYTE % (test code = IG%) 18.2 % 0.0-5.0 H "The appearance of immature granulocytes (myelocytes,pro-myelocytes, meta-myelocytes) in the peripheral blood ofnon- individuals can indicate a response toinfection, inflammation, or other stimulus to the bonemarrow" NUCLEATED RBC % (test code = NRBC%) 0.2 % 0-0 H NEUTROPHIL # (test code = NT#) 3.79 K/mm3 1.8-7.7 N IMMATURE GRANULOCYTE # (test code = IG#) 1.46 x10 3/uL 0-0.03 H LYMPHOCYTE # (test code = LY#) 1.83 K/mm3 1.0-5.0 N MONOCYTE # (test code = MO#) 0.65 K/mm3 0-0.8 N EOSINOPHIL # (test code = EO#) 0.25 K/mm3 0.0-0.5 N BASOPHIL # (test code = BA#) 0.05 K/mm3 0.0-0.2 N NUCLEATED RBC # (test code = NRBC#) 0.02 K/mm3 0.0-0.1 N MANUAL DIFF REQUIRED (test code = MDIFF) YES STAIN ACCEPTABILITY (test code = STN ACCEPTABLE) TOTAL CELLS COUNTED (test code = TCC) #CELLS SEGMENTED NEUTROPHILS (test code = SEG) % 39-69 LYMPHOCYTE (test code = LYMPH) % 25-55 MONOCYTE (test code = MON) % 0-10 MORPHOLOGY COMMENT (test code = MOC) PLATELET ESTIMATE (test code = PLTEST) PLATELET MORPHOLOGY (test code = PLTMORPH) CBC W/MANUAL [id number] 10:10:00* Test Item Value Reference Range Interpretation Comments WHITE BLOOD CELL (test code = WBC) 8.0 K/mm3 4.5-12.5 N RED BLOOD CELL (test code = RBC) 4.76 mill/mm3 4.0-5.8 N HEMOGLOBIN (test code = HGB) 13.1 gram/dL 13.0-17.5 N HEMATOCRIT (test code = HCT) 41.7 % 42.0-52.0 L MEAN CELL VOLUME (test code = MCV) 87.6 fL 80-98 N MEAN CELL HGB (test code = MCH) 27.5 picogram 27.0-33.0 N MEAN CELL HGB CONCETRATION (test code = MCHC) 31.4 gram/dL 33.0-36. 0 L RED CELL DISTRIBUTION WIDTH (test code = RDW) 15.7 % 11.6-16. 2 N RED CELL DISTRIBUTION WIDTH SD (test code = RDW-SD) 49.9 fL 37 .0-51.0 N PLATELET COUNT (test code = PLT) 308 K/mm3 150-450 N MEAN PLATELET VOLUME (test code = MPV) 9.0 fL 6.7-11.0 N IMMATURE GRANULOCYTE % (test code = IG%) 18.2 % 0.0-5.0 H "The appearance of immature granulocytes (myelocytes,pro-myelocytes, meta-myelocytes) in the peripheral blood ofnon- individuals can indicate a response toinfection, inflammation, or other stimulus to the bonemarrow" NUCLEATED RBC % (test code = NRBC%) 0.2 % 0-0 H NEUTROPHIL # (test code = NT#) 3.79 K/mm3 1.8-7.7 N IMMATURE GRANULOCYTE # (test code = IG#) 1.46 x10 3/uL 0-0.03 H LYMPHOCYTE # (test code = LY#) 1.83 K/mm3 1.0-5.0 N MONOCYTE # (test code = MO#) 0.65 K/mm3 0-0.8 N EOSINOPHIL # (test code = EO#) 0.25 K/mm3 0.0-0.5 N BASOPHIL # (test code = BA#) 0.05 K/mm3 0.0-0.2 N NUCLEATED RBC # (test code = NRBC#) 0.02 K/mm3 0.0-0.1 N MANUAL DIFF REQUIRED (test code = MDIFF) YES STAIN ACCEPTABILITY (test code = STN ACCEPTABLE) TOTAL CELLS COUNTED (test code = TCC) #CELLS SEGMENTED NEUTROPHILS (test code = SEG) % 39-69 LYMPHOCYTE (test code = LYMPH) % 25-55 MONOCYTE (test code = MON) % 0-10 EOSINOPHIL (test code = EOS) % 0.0-5.0 CABOT RINGS (test code = CAB) MORPHOLOGY COMMENT (test code = MOC) PLATELET ESTIMATE (test code = PLTEST) PLATELET MORPHOLOGY (test code = PLTMORPH) CBC W/MANUAL [id number] 10:10:00* Test Item Value Reference Range Interpretation Comments WHITE BLOOD CELL (test code = WBC) 8.0 K/mm3 4.5-12.5 N RED BLOOD CELL (test code = RBC) 4.76 mill/mm3 4.0-5.8 N HEMOGLOBIN (test code = HGB) 13.1 gram/dL 13.0-17.5 N HEMATOCRIT (test code = HCT) 41.7 % 42.0-52.0 L MEAN CELL VOLUME (test code = MCV) 87.6 fL 80-98 N MEAN CELL HGB (test code = MCH) 27.5 picogram 27.0-33.0 N MEAN CELL HGB CONCETRATION (test code = MCHC) 31.4 gram/dL 33.0-36. 0 L RED CELL DISTRIBUTION WIDTH (test code = RDW) 15.7 % 11.6-16. 2 N RED CELL DISTRIBUTION WIDTH SD (test code = RDW-SD) 49.9 fL 37 .0-51.0 N PLATELET COUNT (test code = PLT) 308 K/mm3 150-450 N MEAN PLATELET VOLUME (test code = MPV) 9.0 fL 6.7-11.0 N IMMATURE GRANULOCYTE % (test code = IG%) 18.2 % 0.0-5.0 H "The appearance of immature granulocytes (myelocytes,pro-myelocytes, meta-myelocytes) in the peripheral blood ofnon- individuals can indicate a response toinfection, inflammation, or other stimulus to the bonem[place]" NUCLEATED RBC % (test code = NRBC%) 0.2 % 0-0 H NEUTROPHIL # (test code = NT#) 3.79 K/mm3 1.8-7.7 N IMMATURE GRANULOCYTE # (test code = IG#) 1.46 x10 3/uL 0-0.03 H LYMPHOCYTE # (test code = LY#) 1.83 K/mm3 1.0-5.0 N MONOCYTE # (test code = MO#) 0.65 K/mm3 0-0.8 N EOSINOPHIL # (test code = EO#) 0.25 K/mm3 0.0-0.5 N BASOPHIL # (test code = BA#) 0.05 K/mm3 0.0-0.2 N NUCLEATED RBC # (test code = NRBC#) 0.02 K/mm3 0.0-0.1 N MANUAL DIFF REQUIRED (test code = MDIFF) YES STAIN ACCEPTABILITY (test code = STN ACCEPTABLE) TOTAL CELLS COUNTED (test code = TCC) #CELLS SEGMENTED NEUTROPHILS (test code = SEG) % 39-69 LYMPHOCYTE (test code = LYMPH) % 25-55 MONOCYTE (test code = MON) % 0-10 EOSINOPHIL (test code = EOS) % 0.0-5.0 CABOT RINGS (test code = CAB) MORPHOLOGY COMMENT (test code = MOC) PLATELET ESTIMATE (test code = PLTEST) PLATELET MORPHOLOGY (test code = PLTMORPH) BASIC METABOLIC [id number] 08:57:00* Test Item Value Reference Range Interpretation Comments SODIUM (test code = NA) 143 mmol/L 136-145 N POTASSIUM (test code = K) 4.0 mmol/L 3.5-5.1 N CHLORIDE (test code = CL) 108.0 mmol/L 98-107 H CARBON DIOXIDE (test code = CO2) 28.0 mmol/L 21-32 N ANION GAP (test code = GAP) 11.0 10-20 N GLUCOSE (test code = GLU) 87 mg/dL 74-106 N BLOOD UREA NITROGEN (test code = BUN) 10 mg/dL 7-18 N GLOMERULAR FILTRATION RATE (test code = GFR) > 60 mL/min >=60 Estimated GFR by using Modified MDRD formula.Chronic kidney disease is defined as either kidney damageor GFR <60 mL/min/1.73 m2 for >3 months. CREATININE (test code = CREAT) 0.90 mg/dL 0.7-1.3 N BUN/CREATININE RATIO (test code = BUN/CREA) 10.6 10-20 N CALCIUM (test code = CA) 7.9 mg/dL 8.5-10.1 L BASIC METABOLIC [id number] 08:49:00* Test Item Value Reference Range Interpretation Comments SODIUM (test code = NA) 143 mmol/L 136-145 N POTASSIUM (test code = K) 4.0 mmol/L 3.5-5.1 N CHLORIDE (test code = CL) 108.0 mmol/L 98-107 H CARBON DIOXIDE (test code = CO2) mmol/L 21-32 ANION GAP (test code = GAP) 10-20 GLUCOSE (test code = GLU) mg/dL 74-106 BLOOD UREA NITROGEN (test code = BUN) mg/dL 7-18 GLOMERULAR FILTRATION RATE (test code = GFR) mL/min >=60 CREATININE (test code = CREAT) mg/dL 0.7-1.3 BUN/CREATININE RATIO (test code = BUN/CREA) 10-20 CALCIUM (test code = CA) mg/dL 8.5-10.1 VANCOMYCIN [id number] 22:10:00* Test Item Value Reference Range Interpretation Comments VANCOMYCIN TROUGH (test code = VANCT) 16.2 ug/mL 10-20 N BASIC METABOLIC [id number] 19:38:00* Test Item Value Reference Range Interpretation Comments SODIUM (test code = NA) 144 mmol/L 136-145 N POTASSIUM (test code = K) 3.9 mmol/L 3.5-5.1 N CHLORIDE (test code = CL) 110.0 mmol/L 98-107 H CARBON DIOXIDE (test code = CO2) 26.0 mmol/L 21-32 N ANION GAP (test code = GAP) 11.9 10-20 N GLUCOSE (test code = GLU) 105 mg/dL 74-106 N BLOOD UREA NITROGEN (test code = BUN) 11 mg/dL 7-18 N GLOMERULAR FILTRATION RATE (test code = GFR) > 60 mL/min >=60 Estimated GFR by using Modified MDRD formula.Chronic kidney disease is defined as either kidney damageor GFR <60 mL/min/1.73 m2 for >3 months. CREATININE (test code = CREAT) 1.00 mg/dL 0.7-1.3 N BUN/CREATININE RATIO (test code = BUN/CREA) 11.2 10-20 N CALCIUM (test code = CA) 8.5 mg/dL 8.5-10.1 N BASIC METABOLIC [id number] 19:31:00* Test Item Value Reference Range Interpretation Comments SODIUM (test code = NA) 144 mmol/L 136-145 N POTASSIUM (test code = K) 3.9 mmol/L 3.5-5.1 N CHLORIDE (test code = CL) 110.0 mmol/L 98-107 H CARBON DIOXIDE (test code = CO2) mmol/L 21-32 ANION GAP (test code = GAP) 10-20 GLUCOSE (test code = GLU) mg/dL 74-106 BLOOD UREA NITROGEN (test code = BUN) mg/dL 7-18 GLOMERULAR FILTRATION RATE (test code = GFR) mL/min >=60 CREATININE (test code = CREAT) mg/dL 0.7-1.3 BUN/CREATININE RATIO (test code = BUN/CREA) 10-20 CALCIUM (test code = CA) mg/dL 8.5-10.1 BASIC METABOLIC [id number] 05:50:00* Test Item Value Reference Range Interpretation Comments SODIUM (test code = NA) 141 mmol/L 136-145 N POTASSIUM (test code = K) 4.0 mmol/L 3.5-5.1 N CHLORIDE (test code = CL) 109.0 mmol/L 98-107 H CARBON DIOXIDE (test code = CO2) 26.0 mmol/L 21-32 N ANION GAP (test code = GAP) 10.0 10-20 N GLUCOSE (test code = GLU) 194 mg/dL 74-106 H BLOOD UREA NITROGEN (test code = BUN) 9 mg/dL 7-18 N GLOMERULAR FILTRATION RATE (test code = GFR) > 60 mL/min >=60 Estimated GFR by using Modified MDRD formula.Chronic kidney disease is defined as either kidney damageor GFR <60 mL/min/1.73 m2 for >3 months. CREATININE (test code = CREAT) 1.00 mg/dL 0.7-1.3 N BUN/CREATININE RATIO (test code = BUN/CREA) 9.0 10-20 L CALCIUM (test code = CA) 8.1 mg/dL 8.5-10.1 L BASIC METABOLIC [id number] 05:39:00* Test Item Value Reference Range Interpretation Comments SODIUM (test code = NA) 141 mmol/L 136-145 N POTASSIUM (test code = K) 4.0 mmol/L 3.5-5.1 N CHLORIDE (test code = CL) 109.0 mmol/L 98-107 H CARBON DIOXIDE (test code = CO2) mmol/L 21-32 ANION GAP (test code = GAP) 10-20 GLUCOSE (test code = GLU) mg/dL 74-106 BLOOD UREA NITROGEN (test code = BUN) mg/dL 7-18 GLOMERULAR FILTRATION RATE (test code = GFR) mL/min >=60 CREATININE (test code = CREAT) mg/dL 0.7-1.3 BUN/CREATININE RATIO (test code = BUN/CREA) 10-20 CALCIUM (test code = CA) mg/dL 8.5-10.1 CBC W/O [id number] 05:34:00* Test Item Value Reference Range Interpretation Comments WHITE BLOOD CELL (test code = WBC) 12.2 K/mm3 4.5-12.5 N RED BLOOD CELL (test code = RBC) 4.12 mill/mm3 4.0-5.8 N HEMOGLOBIN (test code = HGB) 11.6 gram/dL 13.0-17.5 L HEMATOCRIT (test code = HCT) 36.4 % 42.0-52.0 L MEAN CELL VOLUME (test code = MCV) 88.3 fL 80-98 N MEAN CELL HGB (test code = MCH) 28.2 picogram 27.0-33.0 N MEAN CELL HGB CONCETRATION (test code = MCHC) 31.9 gram/dL 33.0-36. 0 L RED CELL DISTRIBUTION WIDTH (test code = RDW) 14.8 % 11.6-16. 2 N PLATELET COUNT (test code = PLT) 232 K/mm3 150-450 N MEAN PLATELET VOLUME (test code = MPV) 9.5 fL 6.7-11.0 N VANCOMYCIN [id number] 17:36:00* Test Item Value Reference Range Interpretation Comments VANCOMYCIN TROUGH (test code = VANCT) 22.6 ug/mL 10-20 H BASIC METABOLIC [id number] 10:42:00* Test Item Value Reference Range Interpretation Comments SODIUM (test code = NA) 141 mmol/L 136-145 N POTASSIUM (test code = K) 4.6 mmol/L 3.5-5.1 N CHLORIDE (test code = CL) 106.0 mmol/L 98-107 N CARBON DIOXIDE (test code = CO2) 26.0 mmol/L 21-32 N ANION GAP (test code = GAP) 13.6 10-20 N GLUCOSE (test code = GLU) 179 mg/dL 74-106 H BLOOD UREA NITROGEN (test code = BUN) 8 mg/dL 7-18 N GLOMERULAR FILTRATION RATE (test code = GFR) > 60 mL/min >=60 Estimated GFR by using Modified MDRD formula.Chronic kidney disease is defined as either kidney damageor GFR <60 mL/min/1.73 m2 for >3 months. CREATININE (test code = CREAT) 1.00 mg/dL 0.7-1.3 N BUN/CREATININE RATIO (test code = BUN/CREA) 8.0 10-20 L CALCIUM (test code = CA) 8.5 mg/dL 8.5-10.1 N BASIC METABOLIC [id number] 10:35:00* Test Item Value Reference Range Interpretation Comments SODIUM (test code = NA) 141 mmol/L 136-145 N POTASSIUM (test code = K) 4.6 mmol/L 3.5-5.1 N CHLORIDE (test code = CL) 106.0 mmol/L 98-107 N CARBON DIOXIDE (test code = CO2) mmol/L 21-32 ANION GAP (test code = GAP) 10-20 GLUCOSE (test code = GLU) mg/dL 74-106 BLOOD UREA NITROGEN (test code = BUN) mg/dL 7-18 GLOMERULAR FILTRATION RATE (test code = GFR) mL/min >=60 CREATININE (test code = CREAT) mg/dL 0.7-1.3 BUN/CREATININE RATIO (test code = BUN/CREA) 10-20 CALCIUM (test code = CA) mg/dL 8.5-10.1 - XR ABDOMEN AP 1 [id number] 10:17:00 FAX: Wili Eckert MD [phone] [place]: St: ADM FAX: Amarjit Sorto MD [phone] Name: LAVONNE CONTRERAS [facility] : 1960 Age/S: 58/M [address] [facility] Unit #: [id number] Loc: [place] [address] Phys: Amarjit Don MD Acct: [id number] Dis Date: Status: ADM IN PHONE #: [phone] Exam Date: 01/16/2019 1007 FAX #: [phone] Reason: ABCESS IN TESTICLE, P OSSIBLE INFECTION OF IMPLA EXAMS: CPT CODE: [id number] XR ABDOMEN AP 1 V [id number] HISTORY: Abscess and testicle. COMPARISON: CT scan from January 23, 2019. Metallic screw stabilizing the left SI j oint. Penile implant. Marked diastases of the symphysis. No obvious testic ular abscess on the x-ray. Repeat ultrasound for further characterization. No abscess post clearly visible on the CT scan. Perineal fluid collection seen on the CT scan is stable since October 2018. No bowel obstruction. IMPRESSION: No obvious abscess collection within the scrotal sac. Correlate with repeat ultrasound for abscess evaluation. No obvious abscess visible on the CT scan. Perineal fluid collection in the midline as is stable since October 2018 of unclear significance. at 1017 Reported and signed by: Jorge Almeida M.D. CC: Wili Eckert MD; Amarjit Don MD Technologist: Derrick Baeza RT(R) Trnscrd Date/Time/By: 01/16/2019 (1017) : By: [email or web address] Orig Print D/T: S: 01/16/2019 (7142) PAGE 1 Signed Report VANCOMYCIN [id number] 09:31:00* Test Item Value Reference Range Interpretation Comments VANCOMYCIN TROUGH (test code = VANCT) 8.7 ug/mL 10-20 L - USG NDL PLACEMENT (Biopsy/Asp)2019-01-16 09:04:00 Name: LAVONNE CONTRERAS [facility] : 1960 Age/S: 58 / M [address] [facility] Unit #: [id number] Loc: [place] [address] Phys: Wili Eckert MD Acct: [id number] Dis Date: Status: ADM IN PHONE #: [phone] Exam Date: 01/15/2019 1657 FAX #: [phone] Reason: EXAMS: CPT CODE: [id number] USG NDL PLACEMENT (Biopsy/Asp) [id number] Fluoro Time: DAP (Gy m2): Air Kerma (mGy): REASON FOR EXAM:Scrotal abscess PROCEDURE: Percutaneous placement of suprapubic catheter Anesthesia: General Anesthesiologist: Dr. Stewart FINDINGS: Prior to the procedure, informed consent was obtained after risks and benefits of the procedure were explained to the patient. The patient agreed and wanted to proceed. The patient was brought to special procedures and placed supine on the table. The anterior pelvic wall was prepped was draped in the usual fashion. All elements of maximal sterile barrier techniques were applied. Ultrasound shows mild distention of the urinary bladder. Images of the bladder were submitted to PACS. Under real time ultrasound guidance, an 18-gauge Chiba needle was used to access the urinary bladder. A guidewire was inserted and the tract was dilated to accept a 14 Jordanian pigtail tube. The tube was connected to a Rosales back and secured to the subcutaneous tissue with #2 silk sutures MEDICATIONS: None COMPLICATIONS: None Blood loss: Less than 5 mL Fluoroscopic time: 40 seconds Radiation dose: 11.5 mGy IMPRESSION: Technically successful percutaneous placement of suprapubic catheter at 0904 Reported and signed by: Castillo August M.D. CC: Wili Eckert MD Technologist: Franchesca Colby Trnnhb Date/Time: 01/16/2019 (903) [email or web address] Orig Print D/T: S: 01/16/2019 (07) PAGE 1 Signed Report - XR FLUORO [id number] 09:04:00 Name: LAVONNE CONTRERAS [facility] : 1960 Age/S: 58 / M [address] [facility] Unit #: [id number] Loc: [place] [address] Phys: Wili Eckert MD Acct: [id number] Dis Date: Status: ADM IN PHONE #: [phone] Exam Date: 01/15/2019 2734 FAX #: [phone] Reason: URINARY RETENTION EXAMS: CPT CODE: [id number] XR FLUORO NDL 96373 Fluoro Time: 40 DAP (Gy m2): 4.438 Air Kerma (mGy): 11.44 REASON FOR EXAM:Scrotal abscess PROCEDURE: Percutaneous placement of suprapubic catheter Anesthesia: General Anesthesiologist: Dr. Stewart FINDINGS: Prior to the procedure, informed consent was obtained after risks and benefits of the procedure were explained to the patient. The patient agreed and wanted to proceed. The patient was brought to special procedures and placed supine on the table. The anterior pelvic wall was prepped was draped in the usual fashion. All elements of maximal sterile barrier techniques were applied. Ultrasound shows mild distention of the urinary bladder. Images of the bladder were submitted to PACS. Under real time ultrasound guidance, an 18-gauge Chiba needle was used to access the urinary bladder. A guidewire was inserted and the tract was dilated to accept a 14 Jordanian pigtail tube. The tube was connected to a Rosales back and secured to the subcutaneous tissue with #2 silk sutures MEDICATIONS: None COMPLICATIONS: None Blood loss: Less than 5 mL Fluoroscopic time: 40 seconds Radiation dose: 11.5 mGy IMPRESSION: Technically successful percutaneous placement of suprapubic catheter at 0904 Reported and signed by: Castillo August M.D. CC: Wili Eckert MD Technologist: Franchesca Colby Trnnhb Date/Time: 01/16/2019 (903) TannaVTL Orig Print D/T: S: 01/16/2019 (906) PAGE 1 Signed Report BASIC METABOLIC [id number] 08:46:00* Test Item Value Reference Range Interpretation Comments SODIUM (test code = NA) TEST NOT PERFORMED mmol/L 136-145 N Previously reported result: 139 mmol/LEdited by: EDGARD on 01/16/19:50920301/16/19 0844: NA previously reported as: 139 mmol/L POTASSIUM (test code = K) TEST NOT PERFORMED mmol/L 3.5-5.1 N Previously reported result: 4.6 mmol/LEdited by: EDGARD on 01/16/19:36574901/16/19 0845: K previously reported as: 4.6 mmol/L CHLORIDE (test code = CL) TEST NOT PERFORMED mmol/L 98-107 N Previously reported result: 106.0 mmol/LEdited by: EDGARD on 01/16/19:68587001/16/19 0845: CL previously reported as: 106.0 mmol/L CARBON DIOXIDE (test code = CO2) TEST NOT PERFORMED mmol/L 21-32 ANION GAP (test code = GAP) TEST NOT PERFORMED 10-20 GLUCOSE (test code = GLU) TEST NOT PERFORMED mg/dL 74-106 BLOOD UREA NITROGEN (test code = BUN) TEST NOT PERFORMED mg/dL 7-18 GLOMERULAR FILTRATION RATE (test code = GFR) TEST NOT PERFORMED mL/ min >=60 CREATININE (test code = CREAT) TEST NOT PERFORMED mg/dL 0.7-1.3 BUN/CREATININE RATIO (test code = BUN/CREA) TEST NOT PERFORMED 10-2 0 CALCIUM (test code = CA) TEST NOT PERFORMED mg/dL 8.5-10.1 BASIC METABOLIC [id number] 08:41:00* Test Item Value Reference Range Interpretation Comments SODIUM (test code = NA) 139 mmol/L 136-145 N POTASSIUM (test code = K) 4.6 mmol/L 3.5-5.1 N CHLORIDE (test code = CL) 106.0 mmol/L 98-107 N CARBON DIOXIDE (test code = CO2) mmol/L 21-32 ANION GAP (test code = GAP) 10-20 GLUCOSE (test code = GLU) mg/dL 74-106 BLOOD UREA NITROGEN (test code = BUN) mg/dL 7-18 GLOMERULAR FILTRATION RATE (test code = GFR) mL/min >=60 CREATININE (test code = CREAT) mg/dL 0.7-1.3 BUN/CREATININE RATIO (test code = BUN/CREA) 10-20 CALCIUM (test code = CA) mg/dL 8.5-10.1 CBC W/AUTO [id number] 07:34:00* Test Item Value Reference Range Interpretation Comments WHITE BLOOD CELL (test code = WBC) 9.8 K/mm3 4.5-12.5 N RED BLOOD CELL (test code = RBC) 4.25 mill/mm3 4.0-5.8 N HEMOGLOBIN (test code = HGB) 11.8 gram/dL 13.0-17.5 L HEMATOCRIT (test code = HCT) 36.6 % 42.0-52.0 L MEAN CELL VOLUME (test code = MCV) 86.1 fL 80-98 N MEAN CELL HGB (test code = MCH) 27.8 picogram 27.0-33.0 N MEAN CELL HGB CONCETRATION (test code = MCHC) 32.2 gram/dL 33.0-36. 0 L RED CELL DISTRIBUTION WIDTH (test code = RDW) 14.6 % 11.6-16. 2 N RED CELL DISTRIBUTION WIDTH SD (test code = RDW-SD) 46.0 fL 37 .0-51.0 N PLATELET COUNT (test code = PLT) 204 K/mm3 150-450 N MEAN PLATELET VOLUME (test code = MPV) 9.5 fL 6.7-11.0 N NEUTROPHIL % (test code = NT%) 84.5 % 39.0-69.0 H IMMATURE GRANULOCYTE % (test code = IG%) 1.2 % 0.0-5.0 N LYMPHOCYTE % (test code = LY%) 8.9 % 25.0-55.0 L MONOCYTE % (test code = MO%) 5.2 % 0.0-10.0 N EOSINOPHIL % (test code = EO%) 0.0 % 0.0-5.0 N BASOPHIL % (test code = BA%) 0.2 % 0.0-1.0 N NUCLEATED RBC % (test code = NRBC%) 0.0 % 0-0 N NEUTROPHIL # (test code = NT#) 8.31 K/mm3 1.8-7.7 H IMMATURE GRANULOCYTE # (test code = IG#) 0.12 x10 3/uL 0-0.03 H LYMPHOCYTE # (test code = LY#) 0.88 K/mm3 1.0-5.0 L MONOCYTE # (test code = MO#) 0.51 K/mm3 0-0.8 N EOSINOPHIL # (test code = EO#) 0.00 K/mm3 0.0-0.5 N BASOPHIL # (test code = BA#) 0.02 K/mm3 0.0-0.2 N NUCLEATED RBC # (test code = NRBC#) 0.00 K/mm3 0.0-0.1 N MANUAL DIFF REQUIRED (test code = MDIFF) NO PROTHROMBIN [id number] 13:44:00* Test Item Value Reference Range Interpretation Comments PROTHROMBIN TIME PATIENT (test code = PTP) 11.3 seconds 9.0-14.0 N INTERNATIONAL NORMAL RATIO (test code = INR) 1.0 0.8-1.2 N The therapeutic range for oral anticoagulant therapy formost indications is an international normalized ratio (INR)of between 2.0 and 3.0. The recommended therapeutic INRrange for various clinical situations is listed below: Clinical Situation INR range Pulmonary e mbolism treatment (2.0-3.0)Venous thrombosis treatmentVenous thrombosis prophylaxis (high risk surgery)Prevention of systemic embolism from: Acute myocardial infarction Valvular heart disease Atrial fibrillation Mechanical prosthetic heart valves (2.5-3.5) IS PATIENT ON ANTICOAGULANTS? NCOMMENTS TO COLLECTION SPECIALIST: NEED STAT PLEASE PT FOR SURGERY A.S.A.PTHROMBOPLASTIN TIME [id number] 13:44:00* Test Item Value Reference Range Interpretation Comments THROMBOPLASTIN TIME PARTIAL (test code = PTT) 29.9 seconds 25.0-36. 5 N IS PATIENT ON ANTICOAGULANTS? NCOMMENTS TO COLLECTION SPECIALIST: NEED STAT PLEASE PT FOR SURGERY A.S.A.P- US PELVIS LTD OR [id number] 13:09:00 Name: LAVONNE CONTRERAS [facility] : 1960 Age/S: 58 / M [address] [facility] Unit #: [id number] Loc: [place] [address] Phys: Castillo August MD Acct: [id number] Dis Date: Status: ADM IN PHONE #: [phone] Exam Date: 01/15/2019 1233 FAX #: [phone] Reason: SCAN BLADDER PRIOR FOR SUPRA PUBIC CATHETER AUGUSTUS EXAMS: CPT CODE: [id number] US PELVIS LTD OR FU [id number] REASON FOR EXAM: SCAN BLADDER PRIOR FOR SUPRA PUBIC CATHETER PLACEMENT EXAM ORDER DATE: 01/15/2019 11:25 AM Attending Benedict: Castillo August MD PROCEDURE: - US PELVIS LTD OR FU FINDINGS: Limited focal ultrasound performed for assessment of the urinary bladder prior to suprapubic catheter placement. A mildly enlarged urinary bladder noted with bladder volume of 392 cc IMPRESSION: Mildly enlarged urinary bladder with prevoid volume of 392 cc at 1309 Reported and signed by: Castillo August M.D. CC: Wili Eckert MD Technologist: CAROLINE WYNN RT(R),[facility] Trnscb Date/Time: 01/15/2019 (1036) Michael Orig Print D/T: S: 01/15/2019 (4142) Probe: PAGE 1 Signed Report BASIC METABOLIC [id number] 03:50:00* Test Item Value Reference Range Interpretation Comments SODIUM (test code = NA) 136 mmol/L 136-145 N POTASSIUM (test code = K) 4.2 mmol/L 3.5-5.1 N CHLORIDE (test code = CL) 102.0 mmol/L 98-107 N CARBON DIOXIDE (test code = CO2) 29.0 mmol/L 21-32 N ANION GAP (test code = GAP) 9.2 10-20 L GLUCOSE (test code = GLU) 112 mg/dL 74-106 H BLOOD UREA NITROGEN (test code = BUN) 12 mg/dL 7-18 N GLOMERULAR FILTRATION RATE (test code = GFR) > 60 mL/min >=60 Estimated GFR by using Modified MDRD formula.Chronic kidney disease is defined as either kidney damageor GFR <60 mL/min/1.73 m2 for >3 months. CREATININE (test code = CREAT) 0.90 mg/dL 0.7-1.3 N BUN/CREATININE RATIO (test code = BUN/CREA) 13.3 10-20 N CALCIUM (test code = CA) 8.7 mg/dL 8.5-10.1 N COMPREHENSIVE METABOLIC [id number] 10:05:00* Test Item Value Reference Range Interpretation Comments SODIUM (test code = NA) 136 mmol/L 136-145 N POTASSIUM (test code = K) 4.2 mmol/L 3.5-5.1 N CHLORIDE (test code = CL) 104.0 mmol/L 98-107 N CARBON DIOXIDE (test code = CO2) 23.0 mmol/L 21-32 N ANION GAP (test code = GAP) 13.2 10-20 N GLUCOSE (test code = GLU) 109 mg/dL 74-106 H BLOOD UREA NITROGEN (test code = BUN) 18 mg/dL 7-18 N GLOMERULAR FILTRATION RATE (test code = GFR) > 60 mL/min >=60 Estimated GFR by using Modified MDRD formula.Chronic kidney disease is defined as either kidney damageor GFR <60 mL/min/1.73 m2 for >3 months. CREATININE (test code = CREAT) 1.00 mg/dL 0.7-1.3 N BUN/CREATININE RATIO (test code = BUN/CREA) 18.4 10-20 N TOTAL PROTEIN (test code = PROT) 5.9 gram/dL 6.4-8.2 L ALBUMIN (test code = ALB) 2.9 g/dL 3.4-5.0 L GLOBULIN (test code = GLOB) 3.0 gram/dL 2.7-4.2 N ALBUMIN/GLOBULIN RATIO (test code = A/G) 1.0 0.75-1.50 N CALCIUM (test code = CA) 8.3 mg/dL 8.5-10.1 L BILIRUBIN TOTAL (test code = BILT) 1.30 mg/dL 0.0-1.0 H SGOT/AST (test code = AST) 30 IUnit/L 15-37 N SGPT/ALT (test code = ALT) 45 IUnit/L 12-78 N ALKALINE PHOSPHATASE TOTAL (test code = ALKP) 211 IUnit/L 45-117 H Note change in reference range due to change in reagent. COMPREHENSIVE METABOLIC [id number] 09:58:00* Test Item Value Reference Range Interpretation Comments SODIUM (test code = NA) 136 mmol/L 136-145 N POTASSIUM (test code = K) 4.2 mmol/L 3.5-5.1 N CHLORIDE (test code = CL) 104.0 mmol/L 98-107 N CARBON DIOXIDE (test code = CO2) mmol/L 21-32 ANION GAP (test code = GAP) 10-20 GLUCOSE (test code = GLU) mg/dL 74-106 BLOOD UREA NITROGEN (test code = BUN) mg/dL 7-18 GLOMERULAR FILTRATION RATE (test code = GFR) mL/min >=60 CREATININE (test code = CREAT) mg/dL 0.7-1.3 BUN/CREATININE RATIO (test code = BUN/CREA) 10-20 TOTAL PROTEIN (test code = PROT) gram/dL 6.4-8.2 ALBUMIN (test code = ALB) g/dL 3.4-5.0 GLOBULIN (test code = GLOB) gram/dL 2.7-4.2 ALBUMIN/GLOBULIN RATIO (test code = A/G) 0.75-1.50 CALCIUM (test code = CA) mg/dL 8.5-10.1 BILIRUBIN TOTAL (test code = BILT) mg/dL 0.0-1.0 SGOT/AST (test code = AST) IUnit/L 15-37 SGPT/ALT (test code = ALT) IUnit/L 12-78 ALKALINE PHOSPHATASE TOTAL (test code = ALKP) IUnit/L 45-117 [id number] 08:18:00* Test Item Value Reference Range Interpretation Comments GLYCOSYLATED HEMOGLOBIN (HA1C) (test code = GLYHGB) 5.9 % HbA1 4. 8-6.0 N ESTIMATED AVERAGE GLUCOSE (test code = EAG) 123 MG/DL CBC W/O [id number] 08:10:00* Test Item Value Reference Range Interpretation Comments WHITE BLOOD CELL (test code = WBC) 14.4 K/mm3 4.5-12.5 H RED BLOOD CELL (test code = RBC) 4.67 mill/mm3 4.0-5.8 N HEMOGLOBIN (test code = HGB) 13.1 gram/dL 13.0-17.5 N HEMATOCRIT (test code = HCT) 40.5 % 42.0-52.0 L MEAN CELL VOLUME (test code = MCV) 86.7 fL 80-98 N MEAN CELL HGB (test code = MCH) 28.1 picogram 27.0-33.0 N MEAN CELL HGB CONCETRATION (test code = MCHC) 32.3 gram/dL 33.0-36. 0 L RED CELL DISTRIBUTION WIDTH (test code = RDW) 14.9 % 11.6-16. 2 N PLATELET COUNT (test code = PLT) 177 K/mm3 150-450 N MEAN PLATELET VOLUME (test code = MPV) 9.5 fL 6.7-11.0 N CBC W/O [id number] 08:09:00* Test Item Value Reference Range Interpretation Comments WHITE BLOOD CELL (test code = WBC) K/mm3 4.5-12.5 RED BLOOD CELL (test code = RBC) mill/mm3 4.0-5.8 HEMOGLOBIN (test code = HGB) 13.1 gram/dL 13.0-17.5 N HEMATOCRIT (test code = HCT) % 42.0-52.0 MEAN CELL VOLUME (test code = MCV) fL 80-98 MEAN CELL HGB (test code = MCH) picogram 27.0-33.0 MEAN CELL HGB CONCETRATION (test code = MCHC) gram/dL 33.0-36. 0 RED CELL DISTRIBUTION WIDTH (test code = RDW) % 11.6-16. 2 PLATELET COUNT (test code = PLT) K/mm3 150-450 MEAN PLATELET VOLUME (test code = MPV) fL 6.7-11.0 - CT ABD PELVIS [id number] 18:28:00 Name: LAVONNE CONTRERAS [facility] : 1960 Age/S: 58 / M [address] [facility] Unit #: [id number] Loc: [place] [address] Phys: Jeremy Vanegas ALTERNATIVE DISPUTE RESOLUTION MEDIATOR Acct: [id number] Dis Date: Status: ADM IN PHONE #: [phone] Exam Date: 01/13/2019 1716 FAX #: [phone] Reason: TESTICLE PAIN-POSS HERNIA EXAMS: CPT CODE: [id number] CT ABD PELVIS W/CONT 95362 HISTORY: Testicular pain and possible hernia. COMPARISON: Scrotal ultrasound from same day. CT scan from October 06, 2018, May 09, 2018 August 23, 2018 and October 06, 2018. CT of abdomen and pelvis with IV contrast: 100 mL of Isovue-370. Automated exposure control. CT ABDOMEN: The lung bases are clear. Liver is enhancing homogeneously. No parenchymal mass or nodules. Patient is post cholecystectomy. Unremarkable spleen. The stomach distended incompletely but it is normal in appearance. Pancreas enhances homogeneously. Adrenals are normal. Kidneys are free from hydroureteronephrosis. Homogeneous enhancement. Bilateral excretion is noted. Subcentimeter low-attenuation lesion in the left lateral interpolar region is too small to characterize. No pathologic adenopathy. Retroaortic left renal vein. Well-opacified abdominal and pelvic vasculature. No bowel obstruction or colitis or diverticulitis or enteritis. Constipation. CT PELVIS: Appendix is now visible with certainty but no inflammation. Postop changes within the proximal right colon and cecum with surgical sutures. Urinary bladder wall is mildly thickened could result from underdistention. The nondependent wall measured 7 mm. Correlate with urinalysis. The prostate measured 4 cm. Penile implant with reservoir noted in the left inguinal region and anterior right subcutaneous tissues. Subcutaneous tissues demonstrating perineal fluid collection in the midline measuring 3.4 cm with average Hounsfield unit measurement ranging up to 16 posterior to the testicles and scrotal sac. This is PAGE 1 Signed Report (CONTINUED) Name: LAVONNE CONTRERAS [facility] : 1960 Age/S: 58 / M [address] [facility] Unit #: [id number] Loc: [place] [address] Phys: Grant Vanegas NP Acct: [id number] Dis Date: Status: ADM IN PHONE #: Exam Date: 01/13/2019 1719 FAX #: Reason: TESTICLE PAIN-POSS HERNIA EXAMS: CPT CODE: [id number] CT ABD PELVIS W /CONT 85151 <Continued> stable going back to examination of May 2018 and May represent part of the penile implant as no inflammatory changes are noted. Rest of the subcutaneous tissues and the musculature are unremarkable. No lytic or blastic lesions are noted within the bony skeleton. DJD. Marginal osteophyte from the acetabulum right pubic bone. Narrowed SI joints with screw stabilizing the left iliac wing and left sacrum. IMPRESSION: Midline 3.4 cm perineal fluid collection measuring 3.4 cm posterior to the scrotal sac. This is stable going back to examination of May 2018. This may represent portion of the penile implant mechanism. No inflammatory changes are noted. at 1828 Reported and signed by: Jorge Almeida M.D. CC: Jeremy Vanegas NP Technologist:RT SHELLI(R) CT CTDI: DLP: Trnscb Date/Time: 01/13/2019 (182) [email or web address] Orig Print D/T: S: 01/13/2019 (183) PAGE 2 Signed Report LACTIC [id number] 17:40:00* Test Item Value Reference Range Interpretation Comments LACTIC ACID (test code = LACT) 1.1 mmol/L 0.4-1.9 N - US SCROTUM AND [id number] 16:24:00 Name: LAVONNE CONTRERAS [facility] : 1960 Age/S: 58 / M [address] [facility] Unit #: [id number] Loc: [place] [address] Phys: Jeremy Vanegas NP Acct: [id number] Dis Date: Status: REG ER PHONE #: [phone] Exam Date: 01/13/2019 1549 FAX #: [phone] Reason: TESTICLE PAIN EXAMS: CPT CODE: [id number] US SCROTUM AND CNTS 53772 REASON FOR EXAM: PELVIC PAIN EXAM ORDER DATE: 01/13/2019 3:04 PM Attending Benedict: Jeremy Vanegas NP PROCEDURE: - DUP AB/PEL/SC COMP, - US SCROTUM AND CNTS Technique: Duplex scan was performed using grayscale imaging as well as color Doppler and spectral Doppler imaging of the testicles and epididymides. FINDINGS: Right Testicle: Size: 3.6 x 2.2 x 1.9 cm Parenchyma: Normal homogenous echogenicity Masses/calcifications: None Flow: Normal flow is seen Right Epididymis: Size: 1.1 x 1.6 x 1.5 cm Masses: None Left Testicle: Size: 4.6 x 2.2 x 2.8 cm Parenchyma: Normal homogenous echogenicity Masses/calcifications: None Flow: Normal flow is seen Left Epididymis: Size: 1.6 x 1.6 x 1.9 cm Masses: None There is increased vascularity compared to the contralateral epididymis. Hydrocele: None Varicocele: None Scrotal wall: There is a complex collection in the left scrotal wall with hyperemia of the adjacent soft tissues. Canal implant is present. PAGE 1 Signed Report (CONTINUED) Name: LAVONNE CONTRERAS [facility] : 1960 Age/S: 58 / M [address] [facility] Unit #: [id number] Loc: [place] [address] Phys: Jeremy Vanegas ALTERNATIVE DISPUTE RESOLUTION MEDIATOR Acct: [id number] Dis Date: Status: REG ER PHONE #: [phone] Exam Date: 01/13/2019 1546 FAX #: [phone] Reason: TESTICLE PAIN EXAMS: CPT CODE: [id number] US SCROTUM AND CNTS 47212 <Continued> IMPRESSION: Findings of left scrotal wall abscess and left sided epididymitis. The left testicle is sonographically unremarkable. Penile implant. at 1624 Reported and signed by: Joe Vu MD CC: Jeremy Vanegas NP Technologist: Romy Chowdary RT(S), [facility] Trnnhb Date/Time: 01/13/2019 (1623) [id number] Orig Print D/T: S: 01/13/2019 (7507) Probe: PAGE 2 Signed Report - DUP AB/PEL/SC [id number] 16:24:00 Name: LAVONNE CONTRERAS [facility] : 1960 Age/S: 58 / M [address] [facility] Unit #: [id number] Loc: [place] [address] Phys: Jeremy Vanegas NP Acct: [id number] Dis Date: Status: REG ER PHONE #: [phone] Exam Date: 01/13/2019 1546 FAX #: [phone] Reason: PELVIC PAIN EXAMS: CPT CODE: [id number] DUP AB/PEL/SC COMP 83521 REASON FOR EXAM: PELVIC PAIN EXAM ORDER DATE: 01/13/2019 3:04 PM Attending Benedict: Jeremy Vanegas NP PROCEDURE: - DUP AB/PEL/SC COMP, - US SCROTUM AND CNTS Technique: Duplex scan was performed using grayscale imaging as well as color Doppler and spectral Doppler imaging of the testicles and epididymides. FINDINGS: Right Testicle: Size: 3.6 x 2.2 x 1.9 cm Parenchyma: Normal homogenous echogenicity Masses/calcifications: None Flow: Normal flow is seen Right Epididymis: Size: 1.1 x 1.6 x 1.5 cm Masses: None Left Testicle: Size: 4.6 x 2.2 x 2.8 cm Parenchyma: Normal homogenous echogenicity Masses/calcifications: None Flow: Normal flow is seen Left Epididymis: Size: 1.6 x 1.6 x 1.9 cm Masses: None There is increased vascularity compared to the contralateral epididymis. Hydrocele: None Varicocele: None Scrotal wall: There is a complex collection in the left scrotal wall with hyperemia of the adjacent soft tissues. Canal implant is present. PAGE 1 Signed Report (CONTINUED) Name: LAVONNE CONTRERAS [facility] : 1960 Age/S: 58 / M [address] [facility] Unit #: [id number] Loc: [place] [address] Phys: Jeremy Vanegas ALTERNATIVE DISPUTE RESOLUTION MEDIATOR Acct: [id number] Dis Date: Status: REG ER PHONE #: [phone] Exam Date: 01/13/2019 1546 FAX #: [phone] Reason: PELVIC PAIN EXAMS: CPT CODE: [id number] DUP AB/PEL/SC COMP 10434 <Continued> IMPRESSION: Findings of left scrotal wall abscess and left sided epididymitis. The left testicle is sonographically unremarkable. Penile implant. at 1624 Reported and signed by: Joe Vu MD CC: Jeremy Vanegas NP Technologist: Romy Chowdary RT(S), [facility] Trnscb Date/Time: 01/13/2019 (1623) [id number] Orig Print D/T: S: 01/13/2019 (1738) Probe: PAGE 2 Signed Report BASIC METABOLIC [id number] 16:09:00* Test Item Value Reference Range Interpretation Comments SODIUM (test code = NA) 133 mmol/L 136-145 L POTASSIUM (test code = K) 3.8 mmol/L 3.5-5.1 N CHLORIDE (test code = CL) 101.0 mmol/L 98-107 N CARBON DIOXIDE (test code = CO2) 21.0 mmol/L 21-32 N ANION GAP (test code = GAP) 14.8 10-20 N GLUCOSE (test code = GLU) 125 mg/dL 74-106 H BLOOD UREA NITROGEN (test code = BUN) 11 mg/dL 7-18 N GLOMERULAR FILTRATION RATE (test code = GFR) > 60 mL/min >=60 Estimated GFR by using Modified MDRD formula.Chronic kidney disease is defined as either kidney damageor GFR <60 mL/min/1.73 m2 for >3 months. CREATININE (test code = CREAT) 1.10 mg/dL 0.7-1.3 N BUN/CREATININE RATIO (test code = BUN/CREA) 10.1 10-20 N CALCIUM (test code = CA) 8.8 mg/dL 8.5-10.1 N HEPATIC FUNCTION [id number] 16:09:00* Test Item Value Reference Range Interpretation Comments TOTAL PROTEIN (test code = PROT) 7.7 gram/dL 6.4-8.2 N ALBUMIN (test code = ALB) 3.3 g/dL 3.4-5.0 L GLOBULIN (test code = GLOB) 4.4 gram/dL 2.7-4.2 H ALBUMIN/GLOBULIN RATIO (test code = A/G) 0.8 0.75-1.50 N BILIRUBIN TOTAL (test code = BILT) 0.90 mg/dL 0.0-1.0 N BILIRUBIN DIRECT (test code = BILD) 0.25 mg/dL 0.0-0.20 H SGOT/AST (test code = AST) 39 IUnit/L 15-37 H SGPT/ALT (test code = ALT) 57 IUnit/L 12-78 N ALKALINE PHOSPHATASE TOTAL (test code = ALKP) 184 IUnit/L 45-117 H Note change in reference range due to change in reagent. [id number] 16:09:00* Test Item Value Reference Range Interpretation Comments LIPASE (test code = LIP) 99 U/L 73.0-393.0 N CBC W/O [id number] 16:05:00* Test Item Value Reference Range Interpretation Comments WHITE BLOOD CELL (test code = WBC) 16.2 K/mm3 4.5-12.5 H RED BLOOD CELL (test code = RBC) 5.21 mill/mm3 4.0-5.8 N HEMOGLOBIN (test code = HGB) 14.5 gram/dL 13.0-17.5 N HEMATOCRIT (test code = HCT) 44.2 % 42.0-52.0 N MEAN CELL VOLUME (test code = MCV) 84.8 fL 80-98 N MEAN CELL HGB (test code = MCH) 27.8 picogram 27.0-33.0 N MEAN CELL HGB CONCETRATION (test code = MCHC) 32.8 gram/dL 33.0-36. 0 L RED CELL DISTRIBUTION WIDTH (test code = RDW) 14.6 % 11.6-16. 2 N PLATELET COUNT (test code = PLT) 213 K/mm3 150-450 N MEAN PLATELET VOLUME (test code = MPV) 9.2 fL 6.7-11.0 N CBC W/O [id number] 16:04:00* Test Item Value Reference Range Interpretation Comments WHITE BLOOD CELL (test code = WBC) K/mm3 4.5-12.5 RED BLOOD CELL (test code = RBC) mill/mm3 4.0-5.8 HEMOGLOBIN (test code = HGB) 14.5 gram/dL 13.0-17.5 N HEMATOCRIT (test code = HCT) 44.2 % 42.0-52.0 N MEAN CELL VOLUME (test code = MCV) fL 80-98 MEAN CELL HGB (test code = MCH) picogram 27.0-33.0 MEAN CELL HGB CONCETRATION (test code = MCHC) gram/dL 33.0-36. 0 RED CELL DISTRIBUTION WIDTH (test code = RDW) % 11.6-16. 2 PLATELET COUNT (test code = PLT) K/mm3 150-450 MEAN PLATELET VOLUME (test code = MPV) fL 6.7-11.0 BASIC METABOLIC [id number] 15:58:00* Test Item Value Reference Range Interpretation Comments SODIUM (test code = NA) 133 mmol/L 136-145 L POTASSIUM (test code = K) 3.8 mmol/L 3.5-5.1 N CHLORIDE (test code = CL) 101.0 mmol/L 98-107 N CARBON DIOXIDE (test code = CO2) mmol/L 21-32 ANION GAP (test code = GAP) 10-20 GLUCOSE (test code = GLU) mg/dL 74-106 BLOOD UREA NITROGEN (test code = BUN) mg/dL 7-18 GLOMERULAR FILTRATION RATE (test code = GFR) mL/min >=60 CREATININE (test code = CREAT) mg/dL 0.7-1.3 BUN/CREATININE RATIO (test code = BUN/CREA) 10-20 CALCIUM (test code = CA) mg/dL 8.5-10.1 HEPATIC FUNCTION [id number] 15:58:00* Test Item Value Reference Range Interpretation Comments TOTAL PROTEIN (test code = PROT) gram/dL 6.4-8.2 ALBUMIN (test code = ALB) g/dL 3.4-5.0 GLOBULIN (test code = GLOB) gram/dL 2.7-4.2 ALBUMIN/GLOBULIN RATIO (test code = A/G) 0.75-1.50 BILIRUBIN TOTAL (test code = BILT) mg/dL 0.0-1.0 BILIRUBIN DIRECT (test code = BILD) mg/dL 0.0-0.20 SGOT/AST (test code = AST) IUnit/L 15-37 SGPT/ALT (test code = ALT) IUnit/L 12-78 ALKALINE PHOSPHATASE TOTAL (test code = ALKP) IUnit/L 45-117 [id number] 15:58:00* Test Item Value Reference Range Interpretation Comments LIPASE (test code = LIP) U/L 73.0-393.0 URINALYSIS [id number] 15:57:00* Test Item Value Reference Range Interpretation Comments UA COLOR (test code = COLU) YELLOW YELLOW UA APPEARANCE (test code = APPU) Cloudy CLEAR A UA GLUCOSE DIPSTICK (test code = DGLUU) NEGATIVE mg/dL NEGATIVE UA BILIRUBIN DIPSTICK (test code = BILU) NEGATIVE mg/dL NEGATIVE UA KETONE DIPSTICK (test code = KETU) NEGATIVE mg/dL NEGATIVE UA SPECIFIC GRAVITY (test code = SGU) 1.015 1.001-1.035 UA BLOOD DIPSTICK (test code = MERARY) 0.06 mg/dL (1+) mg/dL NEGATIVE A UA PH DIPSTICK (test code = JAISON) 6.5 5.0-8.0 UA PROTEIN DIPSTICK (test code = PROU) 30 (1+) mg/dL NEGATIVE A UA UROBILINIOGEN DIPSTICK (test code = URO) Normal mg/dL NEGATIVE UA NITRITE DIPSTICK (test code = NOEL) POSITIVE NEGATIVE A UA LEUKOCYTE ESTERASE W REFLEX (test code = LEUUR) 500 Alonzo/u L (3+) Alonzo/uL NEGATIVE A UA WBC (test code = WBCU) >200 per HPF 0-5 A UA RBC (test code = RBCU) 6-10 #/HPF 0-5 A UA WBC CLUMPS (test code = WBCUCL) >10 /HPF NONE A UA EPITHELIAL CELLS (test code = EPIU) FEW per HPF FEW UA BACTERIA (test code = BACU) MODERATE #/HPF NONE A UA MUCUS (test code = MUCU) FEW #/LPF FEW UA AMORPHOUS SEDIMENT (test code = AMORU) FEW #/LPF Urine Source? Clean CatchCOMPREHENSIVE METABOLIC [id number] 08:01:00* Test Item Value Reference Range Interpretation Comments SODIUM (test code = NA) 138 mmol/L 137-145 N POTASSIUM (test code = K) 4.2 mmol/L 3.4-5.0 N CHLORIDE (test code = CL) 107 mmol/L 98-107 N CARBON DIOXIDE (test code = CO2) 25 mmol/L 22-30 N GLUCOSE (test code = GLU) 97 mg/dL 74-106 N BLOOD UREA NITROGEN (test code = BUN) 10 mg/dL 9-20 N GLOMERULAR FILTRATION RATE (test code = GFR) 93 >60 The estimated glomerular filtration rate is computed usingpatient race, age (>18), sex, and serum creatinine. If anyof the needed data elements are missing the Laboratory cannot compute an estimation of the glomerular filtration rate. CREATININE (test code = CREAT) 0.9 mg/dL 0.7-1.3 N TOTAL PROTEIN (test code = PROT) 6.3 g/dL 6.3-8.2 N ALBUMIN (test code = ALB) 3.4 g/dL 3.5-5.0 L CALCIUM (test code = CA) 9.4 mg/dL 8.4-10.2 N BILIRUBIN TOTAL (test code = BILT) 0.3 mg/dL 0.2-1.3 N BILIRUBIN CONJUGATED (test code = BILCON) 0 mg/dL 0-0.3 N ~~~~~~~~~~~~~~~~~~~~~~~~~~~~~~~~~~~~~~~~~~~~~~~~~~~~~~~~~~~~CONJUGATED BILIRUBIN IS THE REPLACEMENT ASSAY FOR DIRECTBILIRUBIN.~~~~~~~~~~~~~~~~~~~~~~~~~~~~~~~~~~~~~~~~~~~~~~~~~~~~~~~~~~~~ BILIRUBIN UNCONJUGATED (test code = BILUNC) 0 mg/dL 0-1.1 N SGOT/AST (test code = AST) 22 U/L 15-46 N SGPT/ALT (test code = ALT) 44 U/L 13-69 N ALKALINE PHOSPHATASE (test code = ALKP) 174 U/L 38-126 H [id number] 08:01:00* Test Item Value Reference Range Interpretation Comments MAGNESIUM (test code = MAG) 2.2 mg/dL 1.6-2.3 N COMPREHENSIVE METABOLIC [id number] 07:49:00* Test Item Value Reference Range Interpretation Comments SODIUM (test code = NA) 138 mmol/L 137-145 N POTASSIUM (test code = K) 4.2 mmol/L 3.4-5.0 N CHLORIDE (test code = CL) 107 mmol/L 98-107 N CARBON DIOXIDE (test code = CO2) 25 mmol/L 22-30 N GLUCOSE (test code = GLU) 97 mg/dL 74-106 N BLOOD UREA NITROGEN (test code = BUN) 10 mg/dL 9-20 N GLOMERULAR FILTRATION RATE (test code = GFR) 93 >60 The estimated glomerular filtration rate is computed usingpatient race, age (>18), sex, and serum creatinine. If anyof the needed data elements are missing the Laboratory cannot compute an estimation of the glomerular filtration rate. CREATININE (test code = CREAT) 0.9 mg/dL 0.7-1.3 N TOTAL PROTEIN (test code = PROT) 6.3 g/dL 6.3-8.2 N ALBUMIN (test code = ALB) 3.4 g/dL 3.5-5.0 L CALCIUM (test code = CA) 9.4 mg/dL 8.4-10.2 N BILIRUBIN TOTAL (test code = BILT) 0.3 mg/dL 0.2-1.3 N BILIRUBIN CONJUGATED (test code = BILCON) 0 mg/dL 0-0.3 N ~~~~~~~~~~~~~~~~~~~~~~~~~~~~~~~~~~~~~~~~~~~~~~~~~~~~~~~~~~~~CONJUGATED BILIRUBIN IS THE REPLACEMENT ASSAY FOR DIRECTBILIRUBIN.~~~~~~~~~~~~~~~~~~~~~~~~~~~~~~~~~~~~~~~~~~~~~~~~~~~~~~~~~~~~ BILIRUBIN UNCONJUGATED (test code = BILUNC) 0 mg/dL 0-1.1 N SGOT/AST (test code = AST) 22 U/L 15-46 N SGPT/ALT (test code = ALT) 44 U/L 13-69 N ALKALINE PHOSPHATASE (test code = ALKP) 174 U/L 38-126 H [id number] 07:49:00* Test Item Value Reference Range Interpretation Comments MAGNESIUM (test code = MAG) mg/dL 1.6-2.3 CBC W/AUTO [id number] 07:34:00* Test Item Value Reference Range Interpretation Comments WHITE BLOOD CELL (test code = WBC) 5.9 x10 3/uL 5.0-12.0 N RED BLOOD CELL (test code = RBC) 3.54 x10 6/uL 4.70-6.10 L HEMOGLOBIN (test code = HGB) 10.1 g/dL 14.0-18.0 L HEMATOCRIT (test code = HCT) 30.4 % 37.0-49.0 L MEAN CELL VOLUME (test code = MCV) 86 fL 80-94 N MEAN CELL HGB (test code = MCH) 28.5 pg 27-31 N MEAN CELL HGB CONCENTRATION (test code = MCHC) 33.2 g/dL 33-37 N RED CELL DISTRIBUTION WIDTH (test code = RDW) 12.8 % 11.5-15. 5 N PLATELET COUNT (test code = PLT) 203 x10 3/uL 130-400 N MEAN PLATELET VOLUME (test code = MPV) 9.0 fL 9.4-16.4 L NEUTROPHIL % (test code = NT%) 54.1 % 43-65 N IMMATURE GRANULOCYTE % (test code = IG%) 1.2 % 0.0-2.0 N LYMPHOCYTE % (test code = LY%) 24.1 % 20.5-45.5 N MONOCYTE % (test code = MO%) 8.3 % 5.5-11.7 N EOSINOPHIL % (test code = EO%) 11.4 % 0.9-2.9 H BASOPHIL % (test code = BA%) 0.9 % 0.2-1.0 N NUCLEATED RBC % (test code = NRBC%) 0.0 % 0-1.0 N NEUTROPHIL # (test code = NT#) 3.18 x10 3/uL 2.2-4.8 N IMMATURE GRANULOCYTE # (test code = IG#) 0.07 x10 3/uL 0-0.03 H LYMPHOCYTE # (test code = LY#) 1.42 x10 3/uL 1.3-2.9 N MONOCYTE # (test code = MO#) 0.49 x10 3/uL 0.3-0.8 N EOSINOPHIL # (test code = EO#) 0.67 x10 3/uL 0.0-0.2 H BASOPHIL # (test code = BA#) 0.05 x10 3/uL 0.0-0.1 N BASIC METABOLIC [id number] 02:48:00* Test Item Value Reference Range Interpretation Comments SODIUM (test code = NA) 137 mmol/L 137-145 N POTASSIUM (test code = K) 3.9 mmol/L 3.4-5.0 N CHLORIDE (test code = CL) 102 mmol/L 98-107 N CARBON DIOXIDE (test code = CO2) 27 mmol/L 22-30 N GLUCOSE (test code = GLU) 102 mg/dL 74-106 N BLOOD UREA NITROGEN (test code = BUN) 18 mg/dL 9-20 N GLOMERULAR FILTRATION RATE (test code = GFR) 93 >60 The estimated glomerular filtration rate is computed usingpatient race, age (>18), sex, and serum creatinine. If anyof the needed data elements are missing the Laboratory cannot compute an estimation of the glomerular filtration rate. CREATININE (test code = CREAT) 0.9 mg/dL 0.7-1.3 N CALCIUM (test code = CA) 9.3 mg/dL 8.4-10.2 N UA RFLX MICR CULT IF [id number] 02:42:00* Test Item Value Reference Range Interpretation Comments UA COLOR (test code = COLU) Yellow Yellow UA APPEARANCE (test code = APPU) Cloudy Clear A UA GLUCOSE DIPSTICK (test code = DGLUU) Negative Negative UA BILIRUBIN DIPSTICK (test code = BILU) Negative Negative UA KETONE DIPSTICK (test code = KETU) Negative mg/dL Negative UA SPECIFIC GRAVITY (test code = SGU) 1.010 <1.030 UA BLOOD DIPSTICK (test code = MERARY) 3+ Negative A UA PH DIPSTICK (test code = JAISON) 9.0 5.0-8.0 A UA PROTEIN DIPSTICK (test code = PROU) 30 (1+) mg/dL Negative A UA UROBILINOGEN DIPSTICK (test code = URO) Negative mg/dL Negative UA NITRITE DIPSTICK (test code = NOEL) Negative Negative UA LEUKOCYTE ESTERASE DIPSTICK (test code = LEUU) 2+ Nega tive A UA WBC (test code = WBCUR) 11-20 /HPF <4-5 A > 10 WBC/HPF = PYURIA PRESENT URINE CULTURE PROCESSED UA RBC (test code = RBCU) >100 /HPF <4-5 A UA BACTERIA (test code = BACU) 1+ /HPF None-Rare A SOURCE OF URINE: CLEAN CATCHless than 18 yrs old, neutropenic, or urological marcos gerard? NOPrimary Indication for Culture: Dysuria/FrequencyCBC W/AUTO DIFF 2018-10-07 02:36:00* Test Item Value Reference Range Interpretation Comments WHITE BLOOD CELL (test code = WBC) 6.3 x10 3/uL 5.0-12.0 N RED BLOOD CELL (test code = RBC) 3.86 x10 6/uL 4.70-6.10 L HEMOGLOBIN (test code = HGB) 11.2 g/dL 14.0-18.0 L HEMATOCRIT (test code = HCT) 33.3 % 37.0-49.0 L MEAN CELL VOLUME (test code = MCV) 86 fL 80-94 N MEAN CELL HGB (test code = MCH) 29.0 pg 27-31 N MEAN CELL HGB CONCENTRATION (test code = MCHC) 33.6 g/dL 33-37 N RED CELL DISTRIBUTION WIDTH (test code = RDW) 12.8 % 11.5-15. 5 N PLATELET COUNT (test code = PLT) 230 x10 3/uL 130-400 N MEAN PLATELET VOLUME (test code = MPV) 9.1 fL 9.4-16.4 L NEUTROPHIL % (test code = NT%) 59.0 % 43-65 N IMMATURE GRANULOCYTE % (test code = IG%) 1.3 % 0.0-2.0 N LYMPHOCYTE % (test code = LY%) 21.9 % 20.5-45.5 N MONOCYTE % (test code = MO%) 11.0 % 5.5-11.7 N EOSINOPHIL % (test code = EO%) 6.2 % 0.9-2.9 H BASOPHIL % (test code = BA%) 0.6 % 0.2-1.0 N NUCLEATED RBC % (test code = NRBC%) 0.0 % 0-1.0 N NEUTROPHIL # (test code = NT#) 3.74 x10 3/uL 2.2-4.8 N IMMATURE GRANULOCYTE # (test code = IG#) 0.08 x10 3/uL 0-0.03 H LYMPHOCYTE # (test code = LY#) 1.39 x10 3/uL 1.3-2.9 N MONOCYTE # (test code = MO#) 0.70 x10 3/uL 0.3-0.8 N EOSINOPHIL # (test code = EO#) 0.39 x10 3/uL 0.0-0.2 H BASOPHIL # (test code = BA#) 0.04 x10 3/uL 0.0-0.1 N LACTIC ACID [id number] 02:30:00* Test Item Value Reference Range Interpretation Comments LACTIC ACID POC (test code = LACTP) 0.95 mmol/L 0.7-2.0 N - CT ABD PELVIS W/O [id number] 22:43:00 Name: LAVONNE CONTRERAS [facility] : 1960 Age/S: 57 / M [address] [facility] Unit #: [id number] Loc: [place] [address] Phys: Jayna Brand MD Acct: [id number] Dis Date: Status: DEP ER PHONE #: [phone] Exam Date: 10/06/20182129 FAX #: [phone] Reason: HEMATURIA EXAMS: CPT CODE: [id number] CT ABD PELVIS W/O CONT 71971 REASON FOR EXAM: HEMATURIA EXAM ORDER DATE: 10/06/2018 8:02 PM Ordering M.D.: Jayna Brand MD PROCEDURE: - CT ABD PELVIS W/O CONT noncontrast axial CT images were acquired through the abdomen/pelvis at 5 mm intervals. Sagittal and coronal reformatted images were generated. Automated exposure control was utilized for this reduction. Phases: None COMPARISON: None FINDINGS: The absence of IV contrast limits sensitivity of this exam for the detection of soft tissue pathology Visualized thorax: There are centrilobular and tree-in-bud opacities in the right middle and lower lobes. The left lung base is clear. Hepatobiliary system: Liver is grossly unrema rkable. There has been a prior cholecystectomy. Pancreas: No rmal Spleen: Normal Adrenal glands: Normal Genitourinary system: Penile implant is present. There is a saline re servoir within the left inguinal canal. Gastrointestinal tract and appendix: Percutaneous gastrostomy tube is present. There appears to been a previous segmental small bowel resection and anastomotic sutures are se en in the right lower abdomen. There is marked dilation of several loops o f small bowel in the mid abdomen. These loops measure up to 5.8 cm in diam eter. The distal small bowel appears to be normal in caliber. Abdominal vascular structures: Grossly normal PAGE 1 Signed Report (CONTINUED) Name: LAVONNE CONTRERAS [facility] : 1960 Age/S: 57 / M [address] [facility] Unit #: [id number] Loc: [place] [address] Phys: Jayna Brand MD Acct: [id number] Dis Date: Status: [facility] ER PHONE #: [phone] Exam Date: 10/06/2018 2130 FAX #: [phone] Reason: HEMATURIA EXAMS: CPT CODE: [id number] CT ABD PELVIS W/O CONT 66898 <Continued> Peritoneum and retroperitoneum: No free fluid or free air. There is stranding of the mesentery in the midline of the lower abdomen (series 2 images 75 through 91). There are also multiple subcentimeter lymph nodes in this area which are nonspecific. Musculoskeletal structures and abdominal wall: Orthopedic hardware transfixing the left sacroiliac joint is seen. Mild degenerative changes are present in the spine. Postsurgical changes of laparotomy are seen in the anterior abdominal wall IMPRESSION: No stones in the kidneys or ureters or bladder and no hydronephrosis or hydroureter to explain the patient's hematuria. Marked distention of multiple loops of small bowel in the mid abdomen with normal caliber of the distal small bowel. These findings are suggestive of a bowel obstruction. A transition point is not identified however. Inflammatory changes of the mesentery in the midline of the lower abdomen. These may be scar tissue from a prior surgery however an acute inflammatory process cannot be excluded, particularly given the findings suggestive of bowel obstruction. Please correlate clinically. at 2243 Reported and signed by: Joe Vu MD CC: Aleyda Kramer MD Technologist:CLAUDE MAY(R),RDMS,CT CTDI: DLP: Trnscb Date/Time: 10/06/2018 (568) [email or web address] Orig Print D/T: S: 10/06/2018 (7717) PAGE 2 Signed Report - CT ABD PELVIS W/O [id number] 22:43:00 Name: LAVONNE CONTRERAS [facility] : 1960 Age/S: 57 / M [address] [facility] Unit #: [id number] Loc: [place] [address] Phys: Abhijit Brand MD Acct: [id number] Di s Date: Status: REG ER PHONE #: Exam Date: 10/06/2018 2130 FAX #: Reason: HEMATURIA EXAMS: CPT CODE: [id number] CT ABD PELVIS W/O CONT [id number] REASON FOR EXAM: HEMATURIA EXAM ORDER DATE: 10/06/2018 8:02 PM Ordering M.DAlysa: Jayna Brand MD PROCEDURE: - CT ABD PELVIS W/O CONT non contrast axial CT images were acquired through the abdomen/pelvis at 5 mm intervals. Sagittal and coronal reformatted images were generated. Autom ated exposure control was utilized for this reduction. Phase s: None COMPARISON: None FINDINGS: Th e absence of IV contrast limits sensitivity of this exam for the detection of soft tissue pathology Visualized thorax: There are centrilobul ar and tree-in-bud opacities in the right middle and lower lobes. The left lung base is clear. Hepatobiliary system: Liver is grossly unrema rkable. There has been a prior cholecystectomy. Pancreas: No rmal Spleen: Normal Adrenal glands: Normal Genitourinary system: Penile implant is present. There is a saline re servoir within the left inguinal canal. Gastrointestinal tract and appendix: Percutaneous gastrostomy tube is present. There appears to been a previous segmental small bowel resection and anastomotic sutures are se en in the right lower abdomen. There is marked dilation of several loops o f small bowel in the mid abdomen. These loops measure up to 5.8 cm in diam eter. The distal small bowel appears to be normal in caliber. Abdominal vascular structures: Grossly normal PAGE 1 Signed Report (CONTINUED) Name: LAVONNE CONTRERAS [facility] : 1960 Age/S: 57 / M [address] [facility] Unit #: [id number] Loc: [facility] [place] [address] Phys: Jayna Brand MD Acct: [id number] Dis Date: Status: REG ER PHONE #: [phone] Exam Date: 10/06/2018 213 FAX #: [phone] Reason: HEMATURIA EXAMS: CPT CODE: [id number] CT ABD PELVIS W/O CONT 43328 <Continued> Peritoneum and retroperitoneum: No free fluid or free air. There is stranding of the mesentery in the midline of the lower abdomen (series 2 images 75 through 91). There are also multiple subcentimeter lymph nodes in this area which are nonspecific. Musculoskeletal structures and abdominal wall: Orthopedic hardware transfixing the left sacroiliac joint is seen. Mild degenerative changes are present in the spine. Postsurgical changes of laparotomy are seen in the anterior abdominal wall IMPRESSION: No stones in the kidneys or ureters or bladder and no hydronephrosis or hydroureter to explain the patient's hematuria. Marked distention of multiple loops of small bowel in the mid abdomen with normal caliber of the distal small bowel. These findings are suggestive of a bowel obstruction. A transition point is not identified however. Inflammatory changes of the mesentery in the midline of the lower abdomen. These may be scar tissue from a prior surgery however an acute inflammatory process cannot be excluded, particularly given the findings suggestive of bowel obstruction. Please correlate clinically. at 2243 Reported and signed by: Joe Vu MD CC: Aleyda Kramer MD Technologist:CLAUDE MAY RT(R),RDMS,CT CTDI: DLP: Trnscb Date/Time: 10/06/2018 (6613) [email or web address] Orig Print D/T: S: 10/06/2018 (3439) PAGE 2 Signed Report COMPREHENSIVE METABOLIC [id number] 20:48:00* Test Item Value Reference Range Interpretation Comments SODIUM (test code = NA) 138 mmol/L 136-145 N POTASSIUM (test code = K) 3.7 mmol/L 3.5-5.1 N CHLORIDE (test code = CL) 101 mmol/L 101-109 N CARBON DIOXIDE (test code = CO2) 30.0 mmol/L 21-32 N ANION GAP (test code = GAP) 11 mmol/L 10-20 N GLUCOSE (test code = GLU) 94 mg/dL 74-106 N BLOOD UREA NITROGEN (test code = BUN) 20 mg/dL 3-21 N CREATININE (test code = CREAT) 0.90 mg/dL 0.55-1.3 N BUN/CREATININE RATIO (test code = BUN/CREA) 22.2 10-20 H TOTAL PROTEIN (test code = PROT) 7.2 g/dL 6.5-8.4 N ALBUMIN (test code = ALB) 3.3 g/dL 3.4-4.8 L GLOBULIN (test code = GLOB) 3.9 G/DL 1-10 N ALBUMIN/GLOBULIN RATIO (test code = A/G) 0.85 RATIO 0.75-1.50 N CALCIUM (test code = CA) 8.2 mg/dL 8.4-10.2 L BILIRUBIN TOTAL (test code = BILT) 0.20 mg/dL 0.0-1.0 N SGOT/AST (test code = AST) 18 U/L 6-32 N SGPT/ALT (test code = ALT) 67 U/L 12-78 N N ote: Change in REFERENCE RANGE due to new reagent method. ALKALINE PHOSPHATASE TOTAL (test code = ALKP) 272 U/L 38-126 H PROTHROMBIN [id number] 20:47:00* Test Item Value Reference Range Interpretation Comments PROTHROMBIN TIME PATIENT (test code = PTP) 9.8 seconds 9.0-13.0 N INTERNATIONAL NORMAL RATIO (test code = INR) 1.0 0.8-1.2 N The therapeutic range for oral anticoagulant therapy formost indications is an international normalized ratio (INR)of between 2.0 and 3.0. The recommended therapeutic INRrange for various clinical situations is listed below: Clinical Situation INR range Pulmonary e mbolism treatment (2.0-3.0)Venous thrombosis treatmentVenous thrombosis prophylaxis (high risk surgery)Prevention of systemic embolism from: Acute myocardial infarction Valvular heart disease Atrial fibrillation Mechanical prosthetic heart valves (2.5-3.5) IS PATIENT ON ANTICOAGULANTS? NTHROMBOPLASTIN TIME [id number] 20:47:00* Test Item Value Reference Range Interpretation Comments THROMBOPLASTIN TIME PARTIAL (test code = PTT) 23.7 seconds 25.5-34. 3 L Therapeutic Range for patients on Heparin Therapy is 2 to2.5 times their baseline PTT level. IS PATIENT ON ANTICOAGULANTS? NCBC W/AUTO [id number] 20:29:00* Test Item Value Reference Range Interpretation Comments WHITE BLOOD CELL (test code = WBC) 6.3 K/mm3 4.5-12.5 N RED BLOOD CELL (test code = RBC) 3.86 mill/mm3 4.0-5.8 L HEMOGLOBIN (test code = HGB) 11.4 gram/dL 13.0-17.5 L HEMATOCRIT (test code = HCT) 34.1 % 42.0-52.0 L MEAN CELL VOLUME (test code = MCV) 88.3 fL 80-98 N MEAN CELL HGB (test code = MCH) 29.5 picogram 27.0-33.0 N MEAN CELL HGB CONCETRATION (test code = MCHC) 33.4 gram/dL 33.0-36. 0 N RED CELL DISTRIBUTION WIDTH (test code = RDW) 12.6 % 11.6-16. 2 N RED CELL DISTRIBUTION WIDTH SD (test code = RDW-SD) 41.2 fL 37 .0-51.0 N PLATELET COUNT (test code = PLT) 243 K/mm3 150-450 N MEAN PLATELET VOLUME (test code = MPV) 8.9 fL 6.7-11.0 N NEUTROPHIL % (test code = NT%) 54.9 % 39.0-69.0 N LYMPHOCYTE % (test code = LY%) 24.3 % 25.0-55.0 L MONOCYTE % (test code = MO%) 12.2 % 0.0-10.0 H EOSINOPHIL % (test code = EO%) 6.7 % 0.0-5.0 H BASOPHIL % (test code = BA%) 0.8 % 0.0-1.0 N NEUTROPHIL # (test code = NT#) 3.45 K/mm3 1.8-7.7 N LYMPHOCYTE # (test code = LY#) 1.53 K/mm3 1.0-5.0 N MONOCYTE # (test code = MO#) 0.77 K/mm3 0-0.8 N EOSINOPHIL # (test code = EO#) 0.42 K/mm3 0.0-0.5 N BASOPHIL # (test code = BA#) 0.05 K/mm3 0.0-0.2 N MANUAL DIFF REQUIRED (test code = MDIFF) NO URINALYSIS [id number] 20:28:00* Test Item Value Reference Range Interpretation Comments UA COLOR (test code = COLU) BROWN YELLOW A UA APPEARANCE (test code = APPU) HAZY CLEAR A UA GLUCOSE DIPSTICK (test code = DGLUU) norm mg/dL NEGATIVE UA BILIRUBIN DIPSTICK (test code = BILU) NEGATIVE mg/dL NEGATIVE UA KETONE DIPSTICK (test code = KETU) 5 (Trace) mg/dL NEGATIVE A UA SPECIFIC GRAVITY (test code = SGU) 1.015 1.001-1.035 UA BLOOD DIPSTICK (test code = MERARY) 250 (4+) Abad/uL NEGATIVE A UA PH DIPSTICK (test code = JAISON) 6.5 5.0-8.0 UA PROTEIN DIPSTICK (test code = PROU) 100 (2+) mg/dL Neg-15 A UA UROBILINIOGEN DIPSTICK (test code = URO) 1 mg/dL 0.0-0.2 A UA NITRITE DIPSTICK (test code = NOEL) POSITIVE NEGATIVE UA LEUKOCYTE ESTERASE DIPSTICK (test code = LEUU) 500 Alonzo/uL (3+) u L NEGATIVE A UA WBC (test code = WBCU) 5-10 per HPF 0-5 A UA RBC (test code = RBCU) TNTC per HPF 0-5 A UA EPITHELIAL CELLS (test code = EPIU) Few (2-5/hpf) per HPF Few UA BACTERIA (test code = BACU) MANY per HPF NONE UA MUCUS (test code = MUCU) MODERATE per LPF NONE-FEW A Urine Source? Clean CatchURINALYSIS [id number] 20:18:00* Test Item Value Reference Range Interpretation Comments UA COLOR (test code = COLU) BROWN YELLOW A UA APPEARANCE (test code = APPU) HAZY CLEAR A UA GLUCOSE DIPSTICK (test code = DGLUU) norm mg/dL NEGATIVE UA BILIRUBIN DIPSTICK (test code = BILU) NEGATIVE mg/dL NEGATIVE UA KETONE DIPSTICK (test code = KETU) 5 (Trace) mg/dL NEGATIVE A UA SPECIFIC GRAVITY (test code = SGU) 1.015 1.001-1.035 UA BLOOD DIPSTICK (test code = MERARY) 250 (4+) Abad/uL NEGATIVE A UA PH DIPSTICK (test code = JAISON) 6.5 5.0-8.0 UA PROTEIN DIPSTICK (test code = PROU) 100 (2+) mg/dL Neg-15 A UA UROBILINIOGEN DIPSTICK (test code = URO) 1 mg/dL 0.0-0.2 A UA NITRITE DIPSTICK (test code = NOEL) POSITIVE NEGATIVE UA LEUKOCYTE ESTERASE DIPSTICK (test code = LEUU) 500 Alonzo/uL (3+) u L NEGATIVE A UA WBC (test code = WBCU) per HPF 0-5 UA RBC (test code = RBCU) per HPF 0-5 UA EPITHELIAL CELLS (test code = EPIU) per HPF Few UA BACTERIA (test code = BACU) per HPF NONE Urine Source? Clean CatchBASIC METABOLIC [id number] 05:31:00* Test Item Value Reference Range Interpretation Comments SODIUM (test code = NA) 140 mmol/L 137-145 N POTASSIUM (test code = K) 4.3 mmol/L 3.4-5.0 N CHLORIDE (test code = CL) 100 mmol/L 98-107 N CARBON DIOXIDE (test code = CO2) 27 mmol/L 22-30 N GLUCOSE (test code = GLU) 112 mg/dL 74-106 H BLOOD UREA NITROGEN (test code = BUN) 21 mg/dL 9-20 H GLOMERULAR FILTRATION RATE (test code = GFR) 93 >60 The estimated glomerular filtration rate is computed usingpatient race, age (>18), sex, and serum creatinine. If anyof the needed data elements are missing the Laboratory cannot compute an estimation of the glomerular filtration rate. CREATININE (test code = CREAT) 0.9 mg/dL 0.7-1.3 N CALCIUM (test code = CA) 9.7 mg/dL 8.4-10.2 N Spec Comments: Order to be discontinued when PN is stoppedComments to Phleb: IF not already drawn [id number] 05:31:00* Test Item Value Reference Range Interpretation Comments PHOSPHOROUS (test code = PHOS) 4.4 mg/dL 2.5-4.5 N Spec Comments: Order to be discontinued when PN is stoppedComments to Phleb: IF not already drawn [id number] 05:31:00* Test Item Value Reference Range Interpretation Comments MAGNESIUM (test code = MAG) 2.1 mg/dL 1.6-2.3 N Spec Comments: Order to be discontinued when PN is stoppedComments to Phleb: IF not already drawn todayBASIC METABOLIC [id number] 05:17:00* Test Item Value Reference Range Interpretation Comments SODIUM (test code = NA) 140 mmol/L 137-145 N POTASSIUM (test code = K) 4.3 mmol/L 3.4-5.0 N CHLORIDE (test code = CL) 100 mmol/L 98-107 N CARBON DIOXIDE (test code = CO2) 27 mmol/L 22-30 N GLUCOSE (test code = GLU) 112 mg/dL 74-106 H BLOOD UREA NITROGEN (test code = BUN) 21 mg/dL 9-20 H GLOMERULAR FILTRATION RATE (test code = GFR) 93 >60 The estimated glomerular filtration rate is computed usingpatient race, age (>18), sex, and serum creatinine. If anyof the needed data elements are missing the Laboratory cannot compute an estimation of the glomerular filtration rate. CREATININE (test code = CREAT) 0.9 mg/dL 0.7-1.3 N CALCIUM (test code = CA) 9.7 mg/dL 8.4-10.2 N Spec Comments: Order to be discontinued when PN is stoppedComments to Phleb: IF not already drawn [id number] 05:17:00* Test Item Value Reference Range Interpretation Comments PHOSPHOROUS (test code = PHOS) mg/dL 2.5-4.5 Spec Comments: Order to be discontinued when PN is stoppedComments to Phleb: IF not already drawn [id number] 05:17:00* Test Item Value Reference Range Interpretation Comments MAGNESIUM (test code = MAG) mg/dL 1.6-2.3 Spec Comments: Order to be discontinued when PN is stoppedComments to Phleb: IF not already drawn todayCBC W/AUTO [id number] 04:59:00* Test Item Value Reference Range Interpretation Comments WHITE BLOOD CELL (test code = WBC) 6.1 x10 3/uL 5.0-12.0 N RED BLOOD CELL (test code = RBC) 3.82 x10 6/uL 4.70-6.10 L HEMOGLOBIN (test code = HGB) 11.5 g/dL 14.0-18.0 L HEMATOCRIT (test code = HCT) 33.7 % 37.0-49.0 L MEAN CELL VOLUME (test code = MCV) 88 fL 80-94 N MEAN CELL HGB (test code = MCH) 30.1 pg 27-31 N MEAN CELL HGB CONCENTRATION (test code = MCHC) 34.1 g/dL 33-37 N RED CELL DISTRIBUTION WIDTH (test code = RDW) 12.6 % 11.5-15. 5 N PLATELET COUNT (test code = PLT) 260 x10 3/uL 130-400 N MEAN PLATELET VOLUME (test code = MPV) 10.2 fL 9.4-16.4 N NEUTROPHIL % (test code = NT%) 50.8 % 43-65 N IMMATURE GRANULOCYTE % (test code = IG%) 0.8 % 0.0-2.0 N LYMPHOCYTE % (test code = LY%) 26.9 % 20.5-45.5 N MONOCYTE % (test code = MO%) 11.2 % 5.5-11.7 N EOSINOPHIL % (test code = EO%) 9.1 % 0.9-2.9 H BASOPHIL % (test code = BA%) 1.2 % 0.2-1.0 H NUCLEATED RBC % (test code = NRBC%) 0.0 % 0-1.0 N NEUTROPHIL # (test code = NT#) 3.07 x10 3/uL 2.2-4.8 N IMMATURE GRANULOCYTE # (test code = IG#) 0.05 x10 3/uL 0-0.03 H LYMPHOCYTE # (test code = LY#) 1.63 x10 3/uL 1.3-2.9 N MONOCYTE # (test code = MO#) 0.68 x10 3/uL 0.3-0.8 N EOSINOPHIL # (test code = EO#) 0.55 x10 3/uL 0.0-0.2 H BASOPHIL # (test code = BA#) 0.07 x10 3/uL 0.0-0.1 N Spec Comments: Order to be discontinued when PN is stoppedComments to Phleb: IF not already drawn today[facility] [id number] 07:24:00* Test Item Value Reference Range Interpretation Comments SODIUM (test code = NA) 138 mmol/L 137-145 N POTASSIUM (test code = K) 4.5 mmol/L 3.4-5.0 N CHLORIDE (test code = CL) 101 mmol/L 98-107 N CARBON DIOXIDE (test code = CO2) 28 mmol/L 22-30 N GLUCOSE (test code = GLU) 106 mg/dL 74-106 N BLOOD UREA NITROGEN (test code = BUN) 21 mg/dL 9-20 H GLOMERULAR FILTRATION RATE (test code = GFR) 106 >60 The estimated glomerular filtration rate is computed usingpatient race, age (>18), sex, and serum creatinine. If anyof the needed data elements are missing the Laboratory cannot compute an estimation of the glomerular filtration rate. CREATININE (test code = CREAT) 0.8 mg/dL 0.7-1.3 N CALCIUM (test code = CA) 9.6 mg/dL 8.4-10.2 N Spec Comments: Order to be discontinued when PN is stoppedComments to Phleb: IF not already drawn todaySpec Comments: weeklyComments to Phleb: to be discontinue d when PN is [id number] 07:24:00* Test Item Value Reference Range Interpretation Comments PHOSPHOROUS (test code = PHOS) 4.7 mg/dL 2.5-4.5 H Spec Comments: Order to be discontinued when PN is stoppedComments to Phleb: IF not already drawn todaySpec Comments: weeklyComments to Phleb: to be discontinue d when PN is [id number] 07:24:00* Test Item Value Reference Range Interpretation Comments TRIGLYCERIDES (test code = TRIG) 186 mg/dL TRIGLYCERIDES REFERENCE RANGE:Normal: <150 mg/dLBorderline High: 150-199 mg/dLHigh: 200-499 mg/dLVery High: >=500 mg/dL Spec Comments: Order to be discontinued when PN is stoppedComments to Phleb: IF not already drawn todaySpec Comments: weeklyComments to Phleb: to be discontinue d when PN is [id number] 07:24:00* Test Item Value Reference Range Interpretation Comments MAGNESIUM (test code = MAG) 2.0 mg/dL 1.6-2.3 N Spec Comments: Order to be discontinued when PN is stoppedComments to Phleb: IF not already drawn todaySpec Comments: weeklyComments to Phleb: to be discontinue d when PN is [id number] 07:24:00* Test Item Value Reference Range Interpretation Comments PREALBUMIN (test code = PREALB) 21.17 mg/dL 17.6-36.0 N Spec Comments: Order to be discontinued when PN is stoppedComments to Phleb: IF not already drawn todaySpec Comments: weeklyComments to Phleb: to be discontinue d when PN is stoppedBASIC METABOLIC [id number] 07:14:00* Test Item Value Reference Range Interpretation Comments SODIUM (test code = NA) 138 mmol/L 137-145 N POTASSIUM (test code = K) 4.5 mmol/L 3.4-5.0 N CHLORIDE (test code = CL) 101 mmol/L 98-107 N CARBON DIOXIDE (test code = CO2) 28 mmol/L 22-30 N GLUCOSE (test code = GLU) 106 mg/dL 74-106 N BLOOD UREA NITROGEN (test code = BUN) 21 mg/dL 9-20 H GLOMERULAR FILTRATION RATE (test code = GFR) 106 >60 The estimated glomerular filtration rate is computed usingpatient race, age (>18), sex, and serum creatinine. If anyof the needed data elements are missing the Laboratory cannot compute an estimation of the glomerular filtration rate. CREATININE (test code = CREAT) 0.8 mg/dL 0.7-1.3 N CALCIUM (test code = CA) 9.6 mg/dL 8.4-10.2 N Spec Comments: Order to be discontinued when PN is stoppedComments to Phleb: IF not already drawn todaySpec Comments: weeklyComments to Phleb: to be discontinue d when PN is [id number] 07:14:00* Test Item Value Reference Range Interpretation Comments PHOSPHOROUS (test code = PHOS) 4.7 mg/dL 2.5-4.5 H Spec Comments: Order to be discontinued when PN is stoppedComments to Phleb: IF not already drawn todaySpec Comments: weeklyComments to Phleb: to be discontinue d when PN is [id number] 07:14:00* Test Item Value Reference Range Interpretation Comments TRIGLYCERIDES (test code = TRIG) 186 mg/dL TRIGLYCERIDES REFERENCE RANGE:Normal: <150 mg/dLBorderline High: 150-199 mg/dLHigh: 200-499 mg/dLVery High: >=500 mg/dL Spec Comments: Order to be discontinued when PN is stoppedComments to Phleb: IF not already drawn todaySpec Comments: weeklyComments to Phleb: to be discontinue d when PN is [id number] 07:14:00* Test Item Value Reference Range Interpretation Comments MAGNESIUM (test code = MAG) 2.0 mg/dL 1.6-2.3 N Spec Comments: Order to be discontinued when PN is stoppedComments to Phleb: IF not already drawn todaySpec Comments: weeklyComments to Phleb: to be discontinue d when PN is [id number] 07:14:00* Test Item Value Reference Range Interpretation Comments PREALBUMIN (test code = PREALB) mg/dL 17.6-36.0 Spec Comments: Order to be discontinued when PN is stoppedComments to Phleb: IF not already drawn todaySpec Comments: weeklyComments to Phleb: to be discontinue d when PN is stoppedBASIC METABOLIC [id number] 07:09:00* Test Item Value Reference Range Interpretation Comments SODIUM (test code = NA) 138 mmol/L 137-145 N POTASSIUM (test code = K) 4.5 mmol/L 3.4-5.0 N CHLORIDE (test code = CL) 101 mmol/L 98-107 N CARBON DIOXIDE (test code = CO2) 28 mmol/L 22-30 N GLUCOSE (test code = GLU) 106 mg/dL 74-106 N BLOOD UREA NITROGEN (test code = BUN) 21 mg/dL 9-20 H GLOMERULAR FILTRATION RATE (test code = GFR) 106 >60 The estimated glomerular filtration rate is computed usingpatient race, age (>18), sex, and serum creatinine. If anyof the needed data elements are missing the Laboratory cannot compute an estimation of the glomerular filtration rate. CREATININE (test code = CREAT) 0.8 mg/dL 0.7-1.3 N CALCIUM (test code = CA) 9.6 mg/dL 8.4-10.2 N Spec Comments: Order to be discontinued when PN is stoppedComments to Phleb: IF not already drawn todaySpec Comments: weeklyComments to Phleb: to be discontinue d when PN is [id number] 07:09:00* Test Item Value Reference Range Interpretation Comments PHOSPHOROUS (test code = PHOS) mg/dL 2.5-4.5 Spec Comments: Order to be discontinued when PN is stoppedComments to Phleb: IF not already drawn todaySpec Comments: weeklyComments to Phleb: to be discontinue d when PN is [id number] 07:09:00* Test Item Value Reference Range Interpretation Comments TRIGLYCERIDES (test code = TRIG) mg/dL Spec Comments: Order to be discontinued when PN is stoppedComments to Phleb: IF not already drawn todaySpec Comments: weeklyComments to Phleb: to be discontinue d when PN is [id number] 07:09:00* Test Item Value Reference Range Interpretation Comments MAGNESIUM (test code = MAG) mg/dL 1.6-2.3 Spec Comments: Order to be discontinued when PN is stoppedComments to Phleb: IF not already drawn todaySpec Comments: weeklyComments to Phleb: to be discontinue d when PN is [id number] 07:09:00* Test Item Value Reference Range Interpretation Comments PREALBUMIN (test code = PREALB) mg/dL 17.6-36.0 Spec Comments: Order to be discontinued when PN is stoppedComments to Phleb: IF not already drawn todaySpec Comments: weeklyComments to Phleb: to be discontinue d when PN is stoppedPROTHROMBIN [id number] 07:01:00* Test Item Value Reference Range Interpretation Comments PROTHROMBIN TIME PATIENT (test code = PTP) 12.0 SECONDS 9.2-12.1 N INTERNATIONAL NORMAL RATIO (test code = INR) 1.1 The INR is to be used only for monitoring ORAL ANTICOAGULANTTHERAPY. Indication INR Value1. Prophylaxis/treatment of: Venous Thrombosis, Pulmonary Embolism 2.0 - 3.02. Prevention of systemic embolism from: Tissue heart valves 2.0 - 3.0 Acute myocardial infarction (to present systemic embolism)* 2.0 - 3.0 Valvular heart disease 2.0 - 3.0 Atrial fibrillation 2.0 - 3.03. Mechanical prosthetic valves (high risk) 2.5 - 3.5 * If oral anticoagulant therapy is elected to preventrecurrent myocardial infarction, an INR of 2.5-3.5 isrecommended, consistent with Food and Drug Administrationrecommendations. IS PATIENT ON ANTICOAGULANTS ? YESLIST ANTICOAGULANT/ANTI PLT MEDICATION: Akil ferro (SQ)Spec Comments: weeklyComments to Phleb: to be discontinued when PN is stoppedCBC W/AUTO [id number] 06:55:00* Test Item Value Reference Range Interpretation Comments WHITE BLOOD CELL (test code = WBC) 5.6 x10 3/uL 5.0-12.0 N RED BLOOD CELL (test code = RBC) 3.96 x10 6/uL 4.70-6.10 L HEMOGLOBIN (test code = HGB) 11.5 g/dL 14.0-18.0 L HEMATOCRIT (test code = HCT) 33.9 % 37.0-49.0 L MEAN CELL VOLUME (test code = MCV) 86 fL 80-94 N MEAN CELL HGB (test code = MCH) 29.0 pg 27-31 N MEAN CELL HGB CONCENTRATION (test code = MCHC) 33.9 g/dL 33-37 N RED CELL DISTRIBUTION WIDTH (test code = RDW) 12.5 % 11.5-15. 5 N PLATELET COUNT (test code = PLT) 249 x10 3/uL 130-400 N MEAN PLATELET VOLUME (test code = MPV) 9.3 fL 9.4-16.4 L NEUTROPHIL % (test code = NT%) 45.5 % 43-65 N IMMATURE GRANULOCYTE % (test code = IG%) 0.7 % 0.0-2.0 N LYMPHOCYTE % (test code = LY%) 32.9 % 20.5-45.5 N MONOCYTE % (test code = MO%) 12.3 % 5.5-11.7 H EOSINOPHIL % (test code = EO%) 7.3 % 0.9-2.9 H BASOPHIL % (test code = BA%) 1.3 % 0.2-1.0 H NUCLEATED RBC % (test code = NRBC%) 0.0 % 0-1.0 N NEUTROPHIL # (test code = NT#) 2.55 x10 3/uL 2.2-4.8 N IMMATURE GRANULOCYTE # (test code = IG#) 0.04 x10 3/uL 0-0.03 H LYMPHOCYTE # (test code = LY#) 1.84 x10 3/uL 1.3-2.9 N MONOCYTE # (test code = MO#) 0.69 x10 3/uL 0.3-0.8 N EOSINOPHIL # (test code = EO#) 0.41 x10 3/uL 0.0-0.2 H BASOPHIL # (test code = BA#) 0.07 x10 3/uL 0.0-0.1 N Spec Comments: Order to be discontinued when PN is stoppedComments to Phleb: IF not already drawn todayBASI METABOLIC [id number] 06:33:00* Test Item Value Reference Range Interpretation Comments SODIUM (test code = NA) 139 mmol/L 137-145 N POTASSIUM (test code = K) 4.3 mmol/L 3.4-5.0 N CHLORIDE (test code = CL) 104 mmol/L 98-107 N CARBON DIOXIDE (test code = CO2) 28 mmol/L 22-30 N GLUCOSE (test code = GLU) 101 mg/dL 74-106 N BLOOD UREA NITROGEN (test code = BUN) 20 mg/dL 9-20 N GLOMERULAR FILTRATION RATE (test code = GFR) 93 >60 The estimated glomerular filtration rate is computed usingpatient race, age (>18), sex, and serum creatinine. If anyof the needed data elements are missing the Laboratory cannot compute an estimation of the glomerular filtration rate. CREATININE (test code = CREAT) 0.9 mg/dL 0.7-1.3 N CALCIUM (test code = CA) 9.5 mg/dL 8.4-10.2 N Spec Comments: Order to be discontinued when PN is stoppedComments to Phleb: IF not already drawn [id number] 06:33:00* Test Item Value Reference Range Interpretation Comments PHOSPHOROUS (test code = PHOS) 3.9 mg/dL 2.5-4.5 N Spec Comments: Order to be discontinued when PN is stoppedComments to Phleb: IF not already drawn [id number] 06:33:00* Test Item Value Reference Range Interpretation Comments MAGNESIUM (test code = MAG) 1.9 mg/dL 1.6-2.3 N Spec Comments: Order to be discontinued when PN is stoppedComments to Phleb: IF not already drawn todayCBC W/AUTO [id number] 06:13:00* Test Item Value Reference Range Interpretation Comments WHITE BLOOD CELL (test code = WBC) 5.6 x10 3/uL 5.0-12.0 N RED BLOOD CELL (test code = RBC) 3.70 x10 6/uL 4.70-6.10 L HEMOGLOBIN (test code = HGB) 10.8 g/dL 14.0-18.0 L HEMATOCRIT (test code = HCT) 31.7 % 37.0-49.0 L MEAN CELL VOLUME (test code = MCV) 86 fL 80-94 N MEAN CELL HGB (test code = MCH) 29.2 pg 27-31 N MEAN CELL HGB CONCENTRATION (test code = MCHC) 34.1 g/dL 33-37 N RED CELL DISTRIBUTION WIDTH (test code = RDW) 12.4 % 11.5-15. 5 N PLATELET COUNT (test code = PLT) 220 x10 3/uL 130-400 N MEAN PLATELET VOLUME (test code = MPV) 9.5 fL 9.4-16.4 N NEUTROPHIL % (test code = NT%) 49.7 % 43-65 N IMMATURE GRANULOCYTE % (test code = IG%) 0.5 % 0.0-2.0 N LYMPHOCYTE % (test code = LY%) 25.1 % 20.5-45.5 N MONOCYTE % (test code = MO%) 11.8 % 5.5-11.7 H EOSINOPHIL % (test code = EO%) 11.8 % 0.9-2.9 H BASOPHIL % (test code = BA%) 1.1 % 0.2-1.0 H NUCLEATED RBC % (test code = NRBC%) 0.0 % 0-1.0 N NEUTROPHIL # (test code = NT#) 2.76 x10 3/uL 2.2-4.8 N IMMATURE GRANULOCYTE # (test code = IG#) 0.03 x10 3/uL 0-0.03 N LYMPHOCYTE # (test code = LY#) 1.40 x10 3/uL 1.3-2.9 N MONOCYTE # (test code = MO#) 0.66 x10 3/uL 0.3-0.8 N EOSINOPHIL # (test code = EO#) 0.66 x10 3/uL 0.0-0.2 H BASOPHIL # (test code = BA#) 0.06 x10 3/uL 0.0-0.1 N Spec Comments: Order to be discontinued when PN is stoppedComments to Phleb: IF not already drawn todayNEW [facility] [id number] 06:09:00* Test Item Value Reference Range Interpretation Comments SODIUM (test code = NA) 137 mmol/L 137-145 N POTASSIUM (test code = K) 4.2 mmol/L 3.4-5.0 N CHLORIDE (test code = CL) 102 mmol/L 98-107 N CARBON DIOXIDE (test code = CO2) 26 mmol/L 22-30 N GLUCOSE (test code = GLU) 91 mg/dL 74-106 N BLOOD UREA NITROGEN (test code = BUN) 27 mg/dL 9-20 H GLOMERULAR FILTRATION RATE (test code = GFR) 82 >60 The estimated glomerular filtration rate is computed usingpatient race, age (>18), sex, and serum creatinine. If anyof the needed data elements are missing the Laboratory cannot compute an estimation of the glomerular filtration rate. CREATININE (test code = CREAT) 1.0 mg/dL 0.7-1.3 N CALCIUM (test code = CA) 9.6 mg/dL 8.4-10.2 N Spec Comments: Order to be discontinued when PN is stoppedComments to Phleb: IF not already drawn [id number] 06:09:00* Test Item Value Reference Range Interpretation Comments PHOSPHOROUS (test code = PHOS) 3.6 mg/dL 2.5-4.5 N Spec Comments: Order to be discontinued when PN is stoppedComments to Phleb: IF not already drawn [id number] 06:09:00* Test Item Value Reference Range Interpretation Comments MAGNESIUM (test code = MAG) 2.0 mg/dL 1.6-2.3 N Spec Comments: Order to be discontinued when PN is stoppedComments to Phleb: IF not already drawn todayBASIC METABOLIC [id number] 06:08:00* Test Item Value Reference Range Interpretation Comments SODIUM (test code = NA) 137 mmol/L 137-145 N POTASSIUM (test code = K) 4.2 mmol/L 3.4-5.0 N CHLORIDE (test code = CL) 102 mmol/L 98-107 N CARBON DIOXIDE (test code = CO2) 26 mmol/L 22-30 N GLUCOSE (test code = GLU) 91 mg/dL 74-106 N BLOOD UREA NITROGEN (test code = BUN) 27 mg/dL 9-20 H GLOMERULAR FILTRATION RATE (test code = GFR) 82 >60 The estimated glomerular filtration rate is computed usingpatient race, age (>18), sex, and serum creatinine. If anyof the needed data elements are missing the Laboratory cannot compute an estimation of the glomerular filtration rate. CREATININE (test code = CREAT) 1.0 mg/dL 0.7-1.3 N CALCIUM (test code = CA) 9.6 mg/dL 8.4-10.2 N Spec Comments: Order to be discontinued when PN is stoppedComments to Phleb: IF not already drawn [id number] 06:08:00* Test Item Value Reference Range Interpretation Comments PHOSPHOROUS (test code = PHOS) mg/dL 2.5-4.5 Spec Comments: Order to be discontinued when PN is stoppedComments to Phleb: IF not already drawn [id number] 06:08:00* Test Item Value Reference Range Interpretation Comments MAGNESIUM (test code = MAG) mg/dL 1.6-2.3 Spec Comments: Order to be discontinued when PN is stoppedComments to Phleb: IF not already drawn todayCBC W/AUTO [id number] 05:48:00* Test Item Value Reference Range Interpretation Comments WHITE BLOOD CELL (test code = WBC) 6.4 x10 3/uL 5.0-12.0 N RED BLOOD CELL (test code = RBC) 3.67 x10 6/uL 4.70-6.10 L HEMOGLOBIN (test code = HGB) 10.9 g/dL 14.0-18.0 L HEMATOCRIT (test code = HCT) 32.0 % 37.0-49.0 L MEAN CELL VOLUME (test code = MCV) 87 fL 80-94 N MEAN CELL HGB (test code = MCH) 29.7 pg 27-31 N MEAN CELL HGB CONCENTRATION (test code = MCHC) 34.1 g/dL 33-37 N RED CELL DISTRIBUTION WIDTH (test code = RDW) 12.6 % 11.5-15. 5 N PLATELET COUNT (test code = PLT) 229 x10 3/uL 130-400 N MEAN PLATELET VOLUME (test code = MPV) 9.5 fL 9.4-16.4 N NEUTROPHIL % (test code = NT%) 50.3 % 43-65 N IMMATURE GRANULOCYTE % (test code = IG%) 0.5 % 0.0-2.0 N LYMPHOCYTE % (test code = LY%) 20.9 % 20.5-45.5 N MONOCYTE % (test code = MO%) 14.3 % 5.5-11.7 H EOSINOPHIL % (test code = EO%) 13.1 % 0.9-2.9 H BASOPHIL % (test code = BA%) 0.9 % 0.2-1.0 N NUCLEATED RBC % (test code = NRBC%) 0.0 % 0-1.0 N NEUTROPHIL # (test code = NT#) 3.20 x10 3/uL 2.2-4.8 N IMMATURE GRANULOCYTE # (test code = IG#) 0.03 x10 3/uL 0-0.03 N LYMPHOCYTE # (test code = LY#) 1.33 x10 3/uL 1.3-2.9 N MONOCYTE # (test code = MO#) 0.91 x10 3/uL 0.3-0.8 H EOSINOPHIL # (test code = EO#) 0.83 x10 3/uL 0.0-0.2 H BASOPHIL # (test code = BA#) 0.06 x10 3/uL 0.0-0.1 N Spec Comments: Order to be discontinued when PN is stoppedComments to Phleb: IF not already drawn todayBASIC METABOLIC [id number] 04:45:00* Test Item Value Reference Range Interpretation Comments SODIUM (test code = NA) 136 mmol/L 137-145 L POTASSIUM (test code = K) 4.6 mmol/L 3.4-5.0 N CHLORIDE (test code = CL) 99 mmol/L 98-107 N CARBON DIOXIDE (test code = CO2) 27 mmol/L 22-30 N GLUCOSE (test code = GLU) 111 mg/dL 74-106 H BLOOD UREA NITROGEN (test code = BUN) 34 mg/dL 9-20 H GLOMERULAR FILTRATION RATE (test code = GFR) 82 >60 The estimated glomerular filtration rate is computed usingpatient race, age (>18), sex, and serum creatinine. If anyof the needed data elements are missing the Laboratory cannot compute an estimation of the glomerular filtration rate. CREATININE (test code = CREAT) 1.0 mg/dL 0.7-1.3 N CALCIUM (test code = CA) 9.7 mg/dL 8.4-10.2 N Spec Comments: Order to be discontinued when PN is stoppedComments to Phleb: IF not already drawn [id number] 04:45:00* Test Item Value Reference Range Interpretation Comments PHOSPHOROUS (test code = PHOS) 3.8 mg/dL 2.5-4.5 N Spec Comments: Order to be discontinued when PN is stoppedComments to Phleb: IF not already drawn [id number] 04:45:00* Test Item Value Reference Range Interpretation Comments MAGNESIUM (test code = MAG) 1.8 mg/dL 1.6-2.3 N Spec Comments: Order to be discontinued when PN is stoppedComments to Phleb: IF not already drawn todaySA[facility]/AUTO [id number] 04:32:00* Test Item Value Reference Range Interpretation Comments WHITE BLOOD CELL (test code = WBC) 6.9 x10 3/uL 5.0-12.0 N RED BLOOD CELL (test code = RBC) 4.24 x10 6/uL 4.70-6.10 L HEMOGLOBIN (test code = HGB) 12.4 g/dL 14.0-18.0 L HEMATOCRIT (test code = HCT) 36.6 % 37.0-49.0 L MEAN CELL VOLUME (test code = MCV) 86 fL 80-94 N MEAN CELL HGB (test code = MCH) 29.2 pg 27-31 N MEAN CELL HGB CONCENTRATION (test code = MCHC) 33.9 g/dL 33-37 N RED CELL DISTRIBUTION WIDTH (test code = RDW) 12.6 % 11.5-15. 5 N PLATELET COUNT (test code = PLT) 225 x10 3/uL 130-400 N MEAN PLATELET VOLUME (test code = MPV) 9.6 fL 9.4-16.4 N NEUTROPHIL % (test code = NT%) 77.0 % 43-65 H IMMATURE GRANULOCYTE % (test code = IG%) 0.9 % 0.0-2.0 N LYMPHOCYTE % (test code = LY%) 8.5 % 20.5-45.5 L MONOCYTE % (test code = MO%) 6.7 % 5.5-11.7 N EOSINOPHIL % (test code = EO%) 5.7 % 0.9-2.9 H BASOPHIL % (test code = BA%) 1.2 % 0.2-1.0 H NUCLEATED RBC % (test code = NRBC%) 0.0 % 0-1.0 N NEUTROPHIL # (test code = NT#) 5.29 x10 3/uL 2.2-4.8 H IMMATURE GRANULOCYTE # (test code = IG#) 0.06 x10 3/uL 0-0.03 H LYMPHOCYTE # (test code = LY#) 0.58 x10 3/uL 1.3-2.9 L MONOCYTE # (test code = MO#) 0.46 x10 3/uL 0.3-0.8 N EOSINOPHIL # (test code = EO#) 0.39 x10 3/uL 0.0-0.2 H BASOPHIL # (test code = BA#) 0.08 x10 3/uL 0.0-0.1 N Spec Comments: Order to be discontinued when PN is stoppedComments to Phleb: IF not already drawn todayBASIC METABOLIC [id number] 05:55:00* Test Item Value Reference Range Interpretation Comments SODIUM (test code = NA) 137 mmol/L 137-145 N POTASSIUM (test code = K) 4.4 mmol/L 3.4-5.0 N CHLORIDE (test code = CL) 102 mmol/L 98-107 N CARBON DIOXIDE (test code = CO2) 26 mmol/L 22-30 N GLUCOSE (test code = GLU) 97 mg/dL 74-106 N BLOOD UREA NITROGEN (test code = BUN) 32 mg/dL 9-20 H GLOMERULAR FILTRATION RATE (test code = GFR) 93 >60 The estimated glomerular filtration rate is computed usingpatient race, age (>18), sex, and serum creatinine. If anyof the needed data elements are missing the Laboratory cannot compute an estimation of the glomerular filtration rate. CREATININE (test code = CREAT) 0.9 mg/dL 0.7-1.3 N CALCIUM (test code = CA) 9.6 mg/dL 8.4-10.2 N Spec Comments: Order to be discontinued when PN is stoppedComments to Phleb: IF not already drawn [id number] 05:55:00* Test Item Value Reference Range Interpretation Comments PHOSPHOROUS (test code = PHOS) 3.7 mg/dL 2.5-4.5 N Spec Comments: Order to be discontinued when PN is stoppedComments to Phleb: IF not already drawn [id number] 05:55:00* Test Item Value Reference Range Interpretation Comments MAGNESIUM (test code = MAG) 1.9 mg/dL 1.6-2.3 N Spec Comments: Order to be discontinued when PN is stoppedComments to Phleb: IF not already drawn todayCBC W/AUTO [id number] 05:32:00* Test Item Value Reference Range Interpretation Comments WHITE BLOOD CELL (test code = WBC) 9.3 x10 3/uL 5.0-12.0 N RED BLOOD CELL (test code = RBC) 3.75 x10 6/uL 4.70-6.10 L HEMOGLOBIN (test code = HGB) 11.2 g/dL 14.0-18.0 L HEMATOCRIT (test code = HCT) 32.8 % 37.0-49.0 L MEAN CELL VOLUME (test code = MCV) 88 fL 80-94 N MEAN CELL HGB (test code = MCH) 29.9 pg 27-31 N MEAN CELL HGB CONCENTRATION (test code = MCHC) 34.1 g/dL 33-37 N RED CELL DISTRIBUTION WIDTH (test code = RDW) 12.6 % 11.5-15. 5 N PLATELET COUNT (test code = PLT) 262 x10 3/uL 130-400 N MEAN PLATELET VOLUME (test code = MPV) 9.7 fL 9.4-16.4 N NEUTROPHIL % (test code = NT%) 68.5 % 43-65 H IMMATURE GRANULOCYTE % (test code = IG%) 0.8 % 0.0-2.0 N LYMPHOCYTE % (test code = LY%) 17.1 % 20.5-45.5 L MONOCYTE % (test code = MO%) 8.4 % 5.5-11.7 N EOSINOPHIL % (test code = EO%) 4.6 % 0.9-2.9 H BASOPHIL % (test code = BA%) 0.6 % 0.2-1.0 N NUCLEATED RBC % (test code = NRBC%) 0.0 % 0-1.0 N NEUTROPHIL # (test code = NT#) 6.39 x10 3/uL 2.2-4.8 H IMMATURE GRANULOCYTE # (test code = IG#) 0.07 x10 3/uL 0-0.03 H LYMPHOCYTE # (test code = LY#) 1.60 x10 3/uL 1.3-2.9 N MONOCYTE # (test code = MO#) 0.78 x10 3/uL 0.3-0.8 N EOSINOPHIL # (test code = EO#) 0.43 x10 3/uL 0.0-0.2 H BASOPHIL # (test code = BA#) 0.06 x10 3/uL 0.0-0.1 N Spec Comments: Order to be discontinued when PN is stoppedComments to Phleb: IF not already drawn todayBALOU[facility] [id number] 04:16:00* Test Item Value Reference Range Interpretation Comments SODIUM (test code = NA) 136 mmol/L 137-145 L POTASSIUM (test code = K) 4.3 mmol/L 3.4-5.0 N CHLORIDE (test code = CL) 103 mmol/L 98-107 N CARBON DIOXIDE (test code = CO2) 24 mmol/L 22-30 N GLUCOSE (test code = GLU) 108 mg/dL 74-106 H BLOOD UREA NITROGEN (test code = BUN) 28 mg/dL 9-20 H GLOMERULAR FILTRATION RATE (test code = GFR) 93 >60 The estimated glomerular filtration rate is computed usingpatient race, age (>18), sex, and serum creatinine. If anyof the needed data elements are missing the Laboratory cannot compute an estimation of the glomerular filtration rate. CREATININE (test code = CREAT) 0.9 mg/dL 0.7-1.3 N CALCIUM (test code = CA) 9.5 mg/dL 8.4-10.2 N Spec Comments: Order to be discontinued when PN is stoppedComments to Phleb: IF not already drawn [id number] 04:16:00* Test Item Value Reference Range Interpretation Comments PHOSPHOROUS (test code = PHOS) 3.8 mg/dL 2.5-4.5 N Spec Comments: Order to be discontinued when PN is stoppedComments to Phleb: IF not already drawn [id number] 04:16:00* Test Item Value Reference Range Interpretation Comments MAGNESIUM (test code = MAG) 2.0 mg/dL 1.6-2.3 N Spec Comments: Order to be discontinued when PN is stoppedComments to Phleb: IF not already drawn todayCBC W/AUTO [id number] 03:53:00* Test Item Value Reference Range Interpretation Comments WHITE BLOOD CELL (test code = WBC) 9.2 x10 3/uL 5.0-12.0 N RED BLOOD CELL (test code = RBC) 3.95 x10 6/uL 4.70-6.10 L HEMOGLOBIN (test code = HGB) 11.5 g/dL 14.0-18.0 L HEMATOCRIT (test code = HCT) 34.2 % 37.0-49.0 L MEAN CELL VOLUME (test code = MCV) 87 fL 80-94 N MEAN CELL HGB (test code = MCH) 29.1 pg 27-31 N MEAN CELL HGB CONCENTRATION (test code = MCHC) 33.6 g/dL 33-37 N RED CELL DISTRIBUTION WIDTH (test code = RDW) 12.4 % 11.5-15. 5 N PLATELET COUNT (test code = PLT) 322 x10 3/uL 130-400 N MEAN PLATELET VOLUME (test code = MPV) 9.3 fL 9.4-16.4 L NEUTROPHIL % (test code = NT%) 72.9 % 43-65 H IMMATURE GRANULOCYTE % (test code = IG%) 0.5 % 0.0-2.0 N LYMPHOCYTE % (test code = LY%) 15.9 % 20.5-45.5 L MONOCYTE % (test code = MO%) 6.2 % 5.5-11.7 N EOSINOPHIL % (test code = EO%) 3.6 % 0.9-2.9 H BASOPHIL % (test code = BA%) 0.9 % 0.2-1.0 N NUCLEATED RBC % (test code = NRBC%) 0.0 % 0-1.0 N NEUTROPHIL # (test code = NT#) 6.74 x10 3/uL 2.2-4.8 H IMMATURE GRANULOCYTE # (test code = IG#) 0.05 x10 3/uL 0-0.03 H LYMPHOCYTE # (test code = LY#) 1.47 x10 3/uL 1.3-2.9 N MONOCYTE # (test code = MO#) 0.57 x10 3/uL 0.3-0.8 N EOSINOPHIL # (test code = EO#) 0.33 x10 3/uL 0.0-0.2 H BASOPHIL # (test code = BA#) 0.08 x10 3/uL 0.0-0.1 N Spec Comments: Order to be discontinued when PN is stoppedComments to Phleb: IF not already drawn today- SP FELIX [id number] 10:59:00 [place]: CAT St: ADM Name: LAVONNE BAEZA [facility] : [birth year] 63 Age/S: 57/M [address] Unit #: [id number] Loc: C.3317 [place] [address] Phys: Jayde Lee DO Acct: [id number] Dis Date: Status: ADM IN PHONE #: [phone] Exam Date: 09/25/2018 1033 FAX #: [phone] Reason: EXAMS: CPT CODE: [id number] SP FLUORO NDL 23551 Exam: 1. Percutaneous ultrasound/fluoroscopic guided gastrostomy tube placement. Procedure: - SP FLUORO NDL, - FLUORO GUID CTRL ACC DEV LOCATION CODE: C3 Technique: Risk, benefits, procedure w ere thoroughly discussed with the patient and family. They understood and gave both and verbal consent. Sonographic visibility of the abdom en were performed in order to avoid injuring the liver and spleen. Attention was then shifted to patient's left upper quadrant of the abdomen. Timeout for patient's safety was performed. Initial fluoroscopi c images were performed which reveal a partially decompressed gastric pouc h with NG tube in position. An injection of approximately 1500 mL of air directly into the stomach. The overlying skin of the left upper quadrant was prepped and draped with maximal sterile barrier technique.The re is was locally anesthetized with 10 mL 1% lidocaine. Using a 18-gauge needle puncture of the abdominal wall and gastric wall was done followed b y placement of a cope GI anchor suture set ( T-bar ) was also inserted approximately 2-3 cm more laterally. A position between the T-bar was selected followed by insertion of the 18-gauge needle and passage of a 0.3 5 guidewire into the stomach. The tract was further dilated foll owed by placement of a 26 fr peel-away sheath. The balloon tip gastrostom y tube was passed over the guidewire into the stomach uneventfully. Diamond ter was secured with suture from anchoring set. Patient tolshad rated procedure well without a complication. FLUOROSCOPIC TIME: 54 seconds NUMBER OF IMAGES: 1 RADIATION DOSE: 30.2 m Gy PAGE 1 Signed Report (C ONTINUED) [place]: St: ADM Name: LAVONNE CONTRERAS [facility] : 1960 Age/S: 57/M [address] Unit #: [id number] Loc: C.3317 [place] [address] Phys: Liana Lee DO Acct: [id number] Dis Date: Status: ADM IN PHONE #: [phone] Exam Date: 09/25/2018 7283 FAX #: Reason: EXAMS: CPT CODE: [id number] SP FLUORO NDL 95242 <Continued> Discussion: Initial preliminary images demonstrate multiple distended loop of small bowel. The gastric is decompressed. NG tube is in position. Upon completion of the ng tube placement injection of contrast demonstrate extension of contrast into the decompressed gastric pouch. No contrast extravasation seen. Impression: 1. Status post placement of percutaneous gastrostomy tube placement. at 1059 Reported and signed by: Juan Ramon Rodríguez M.D. CC: Technologist: Tatyana Grovesnhteresa Date/Time/By: 09/25/2018 (1059) : By: Gurwinder PAGE 2 Signed Report [place]: St: ADM Name: LAVONNE CONTRERAS [facility] : 1960 Age/S: 57/M [address] Unit #: [id number] Loc: C.3317 [place], [place] [address] Phys: Jayde Lee DO Acct: [id number] Dis Date: Status: ADM IN PHONE #: [phone] Exam Date: 09/25/2018 1033 FAX #: [phone] Reason: EXAMS: C PT CODE: [id number] SP FLUORO NDL 79748 <Continued> Orig Print D/T: S: 09/25/2018 (6798) PAGE 3 Signed Report BASIC METABOLIC [id number] 04:54:00* Test Item Value Reference Range Interpretation Comments SODIUM (test code = NA) 135 mmol/L 137-145 L POTASSIUM (test code = K) 4.8 mmol/L 3.4-5.0 N CHLORIDE (test code = CL) 104 mmol/L 98-107 N CARBON DIOXIDE (test code = CO2) 22 mmol/L 22-30 N GLUCOSE (test code = GLU) 112 mg/dL 74-106 H BLOOD UREA NITROGEN (test code = BUN) 32 mg/dL 9-20 H GLOMERULAR FILTRATION RATE (test code = GFR) 93 >60 The estimated glomerular filtration rate is computed usingpatient race, age (>18), sex, and serum creatinine. If anyof the needed data elements are missing the Laboratory cannot compute an estimation of the glomerular filtration rate. CREATININE (test code = CREAT) 0.9 mg/dL 0.7-1.3 N CALCIUM (test code = CA) 9.5 mg/dL 8.4-10.2 N Spec Comments: Order to be discontinued when PN is stoppedComments to Phleb: IF not already drawn [id number] 04:54:00* Test Item Value Reference Range Interpretation Comments PHOSPHOROUS (test code = PHOS) 4.9 mg/dL 2.5-4.5 H Spec Comments: Order to be discontinued when PN is stoppedComments to Phleb: IF not already drawn [id number] 04:54:00* Test Item Value Reference Range Interpretation Comments MAGNESIUM (test code = MAG) 2.2 mg/dL 1.6-2.3 N Spec Comments: Order to be discontinued when PN is stoppedComments to Phleb: IF not already drawn todayCBC W/AUTO [id number] 04:11:00* Test Item Value Reference Range Interpretation Comments WHITE BLOOD CELL (test code = WBC) 8.0 x10 3/uL 5.0-12.0 N RED BLOOD CELL (test code = RBC) 4.16 x10 6/uL 4.70-6.10 L HEMOGLOBIN (test code = HGB) 12.1 g/dL 14.0-18.0 L HEMATOCRIT (test code = HCT) 36.1 % 37.0-49.0 L MEAN CELL VOLUME (test code = MCV) 87 fL 80-94 N MEAN CELL HGB (test code = MCH) 29.1 pg 27-31 N MEAN CELL HGB CONCENTRATION (test code = MCHC) 33.5 g/dL 33-37 N RED CELL DISTRIBUTION WIDTH (test code = RDW) 12.3 % 11.5-15. 5 N PLATELET COUNT (test code = PLT) 394 x10 3/uL 130-400 N MEAN PLATELET VOLUME (test code = MPV) 9.2 fL 9.4-16.4 L NEUTROPHIL % (test code = NT%) 59.0 % 43-65 N IMMATURE GRANULOCYTE % (test code = IG%) 1.0 % 0.0-2.0 N LYMPHOCYTE % (test code = LY%) 25.7 % 20.5-45.5 N MONOCYTE % (test code = MO%) 7.2 % 5.5-11.7 N EOSINOPHIL % (test code = EO%) 5.7 % 0.9-2.9 H BASOPHIL % (test code = BA%) 1.4 % 0.2-1.0 H NUCLEATED RBC % (test code = NRBC%) 0.0 % 0-1.0 N NEUTROPHIL # (test code = NT#) 4.73 x10 3/uL 2.2-4.8 N IMMATURE GRANULOCYTE # (test code = IG#) 0.08 x10 3/uL 0-0.03 H LYMPHOCYTE # (test code = LY#) 2.06 x10 3/uL 1.3-2.9 N MONOCYTE # (test code = MO#) 0.58 x10 3/uL 0.3-0.8 N EOSINOPHIL # (test code = EO#) 0.46 x10 3/uL 0.0-0.2 H BASOPHIL # (test code = BA#) 0.11 x10 3/uL 0.0-0.1 H Spec Comments: Order to be discontinued when PN is stoppedComments to Phleb: IF not already drawn todayBASI METABOLIC [id number] 06:53:00* Test Item Value Reference Range Interpretation Comments SODIUM (test code = NA) 136 mmol/L 137-145 L POTASSIUM (test code = K) 4.6 mmol/L 3.4-5.0 N CHLORIDE (test code = CL) 103 mmol/L 98-107 N CARBON DIOXIDE (test code = CO2) 23 mmol/L 22-30 N GLUCOSE (test code = GLU) 95 mg/dL 74-106 N BLOOD UREA NITROGEN (test code = BUN) 28 mg/dL 9-20 H GLOMERULAR FILTRATION RATE (test code = GFR) 93 >60 The estimated glomerular filtration rate is computed usingpatient race, age (>18), sex, and serum creatinine. If anyof the needed data elements are missing the Laboratory cannot compute an estimation of the glomerular filtration rate. CREATININE (test code = CREAT) 0.9 mg/dL 0.7-1.3 N CALCIUM (test code = CA) 9.9 mg/dL 8.4-10.2 N Spec Comments: Order to be discontinued when PN is stoppedComments to Phleb: IF not already drawn todaySpec Comments: [id number] Comments: DAY 3PHOSPHOROUS 2018-09-24 06:53:00* Test Item Value Reference Range Interpretation Comments PHOSPHOROUS (test code = PHOS) 4.7 mg/dL 2.5-4.5 H Spec Comments: Order to be discontinued when PN is stoppedComments to Phleb: IF not already drawn todaySpec Comments: [id number] Comments: DAY 3TRIGLYCERIDES 2018-09-24 06:53:00* Test Item Value Reference Range Interpretation Comments TRIGLYCERIDES (test code = TRIG) 281 mg/dL TRIGLYCERIDES REFERENCE RANGE:Normal: <150 mg/dLBorderline High: 150-199 mg/dLHigh: 200-499 mg/dLVery High: >=500 mg/dL Spec Comments: Order to be discontinued when PN is stoppedComments to Phleb: IF not already drawn todaySpec Comments: [id number] Comments: DAY 3MAGNESIUM 2018-09-24 06:53:00* Test Item Value Reference Range Interpretation Comments MAGNESIUM (test code = MAG) 2.1 mg/dL 1.6-2.3 N Spec Comments: Order to be discontinued when PN is stoppedComments to Phleb: IF not already drawn todaySpec Comments: [id number] Comments: DAY 3PREALBUMIN 2018-09-24 06:53:00* Test Item Value Reference Range Interpretation Comments PREALBUMIN (test code = PREALB) 24.65 mg/dL 17.6-36.0 N Spec Comments: Order to be discontinued when PN is stoppedComments to Phleb: IF not already drawn todaySpec Comments: [id number] Comments: DAY 3BASIC METABOLIC [id number] 06:46:00* Test Item Value Reference Range Interpretation Comments SODIUM (test code = NA) 136 mmol/L 137-145 L POTASSIUM (test code = K) 4.6 mmol/L 3.4-5.0 N CHLORIDE (test code = CL) 103 mmol/L 98-107 N CARBON DIOXIDE (test code = CO2) 23 mmol/L 22-30 N GLUCOSE (test code = GLU) 95 mg/dL 74-106 N BLOOD UREA NITROGEN (test code = BUN) 28 mg/dL 9-20 H GLOMERULAR FILTRATION RATE (test code = GFR) 93 >60 The estimated glomerular filtration rate is computed usingpatient race, age (>18), sex, and serum creatinine. If anyof the needed data elements are missing the Laboratory cannot compute an estimation of the glomerular filtration rate. CREATININE (test code = CREAT) 0.9 mg/dL 0.7-1.3 N CALCIUM (test code = CA) 9.9 mg/dL 8.4-10.2 N Spec Comments: Order to be discontinued when PN is stoppedComments to Phleb: IF not already drawn todaySpec Comments: [id number] Comments: DAY 3PHOSPHOROUS 2018-09-24 06:46:00* Test Item Value Reference Range Interpretation Comments PHOSPHOROUS (test code = PHOS) mg/dL 2.5-4.5 Spec Comments: Order to be discontinued when PN is stoppedComments to Phleb: IF not already drawn todaySpec Comments: [id number] Comments: DAY 3TRIGLYCERIDES 2018-09-24 06:46:00* Test Item Value Reference Range Interpretation Comments TRIGLYCERIDES (test code = TRIG) mg/dL Spec Comments: Order to be discontinued when PN is stoppedComments to Phleb: IF not already drawn todaySpec Comments: [id number] Comments: DAY 3MAGNESIUM 2018-09-24 06:46:00* Test Item Value Reference Range Interpretation Comments MAGNESIUM (test code = MAG) mg/dL 1.6-2.3 Spec Comments: Order to be discontinued when PN is stoppedComments to Phleb: IF not already drawn todaySpec Comments: [id number] Comments: DAY 3PREALBUMIN 2018-09-24 06:46:00* Test Item Value Reference Range Interpretation Comments PREALBUMIN (test code = PREALB) mg/dL 17.6-36.0 Spec Comments: Order to be discontinued when PN is stoppedComments to Phleb: IF not already drawn todaySpec Comments: [id number] Comments: DAY 3BASIC METABOLIC [id number] 06:46:00* Test Item Value Reference Range Interpretation Comments SODIUM (test code = NA) 136 mmol/L 137-145 L POTASSIUM (test code = K) 4.6 mmol/L 3.4-5.0 N CHLORIDE (test code = CL) 103 mmol/L 98-107 N CARBON DIOXIDE (test code = CO2) 23 mmol/L 22-30 N GLUCOSE (test code = GLU) 95 mg/dL 74-106 N BLOOD UREA NITROGEN (test code = BUN) 28 mg/dL 9-20 H GLOMERULAR FILTRATION RATE (test code = GFR) 93 >60 The estimated glomerular filtration rate is computed usingpatient race, age (>18), sex, and serum creatinine. If anyof the needed data elements are missing the Laboratory cannot compute an estimation of the glomerular filtration rate. CREATININE (test code = CREAT) 0.9 mg/dL 0.7-1.3 N CALCIUM (test code = CA) 9.9 mg/dL 8.4-10.2 N Spec Comments: Order to be discontinued when PN is stoppedComments to Phleb: IF not already drawn todaySpec Comments: [id number] Comments: DAY 3PHOSPHOROUS 2018-09-24 06:46:00* Test Item Value Reference Range Interpretation Comments PHOSPHOROUS (test code = PHOS) 4.7 mg/dL 2.5-4.5 H Spec Comments: Order to be discontinued when PN is stoppedComments to Phleb: IF not already drawn todaySpec Comments: [id number] Comments: DAY 3TRIGLYCERIDES 2018-09-24 06:46:00* Test Item Value Reference Range Interpretation Comments TRIGLYCERIDES (test code = TRIG) 281 mg/dL TRIGLYCERIDES REFERENCE RANGE:Normal: <150 mg/dLBorderline High: 150-199 mg/dLHigh: 200-499 mg/dLVery High: >=500 mg/dL Spec Comments: Order to be discontinued when PN is stoppedComments to Phleb: IF not already drawn todaySpec Comments: [id number] Comments: DAY 3MAGNESIUM 2018-09-24 06:46:00* Test Item Value Reference Range Interpretation Comments MAGNESIUM (test code = MAG) 2.1 mg/dL 1.6-2.3 N Spec Comments: Order to be discontinued when PN is stoppedComments to Phleb: IF not already drawn todaySpec Comments: [id number] Comments: DAY 3PREALBUMIN 2018-09-24 06:46:00* Test Item Value Reference Range Interpretation Comments PREALBUMIN (test code = PREALB) mg/dL 17.6-36.0 Spec Comments: Order to be discontinued when PN is stoppedComments to Phleb: IF not already drawn todaySpec Comments: [id number] Comments: DAY 3PROTHROMBIN TIME 2018-09-24 06:27:00* Test Item Value Reference Range Interpretation Comments PROTHROMBIN TIME PATIENT (test code = PTP) 12.1 SECONDS 9.2-12.1 N INTERNATIONAL NORMAL RATIO (test code = INR) 1.1 The INR is to be used only for monitoring ORAL ANTICOAGULANTTHERAPY. Indication INR Value1. Prophylaxis/treatment of: Venous Thrombosis, Pulmonary Embolism 2.0 - 3.02. Prevention of systemic embolism from: Tissue heart valves 2.0 - 3.0 Acute myocardial infarction (to present systemic embolism)* 2.0 - 3.0 Valvular heart disease 2.0 - 3.0 Atrial fibrillation 2.0 - 3.03. Mechanical prosthetic valves (high risk) 2.5 - 3.5 * If oral anticoagulant therapy is elected to preventrecurrent myocardial infarction, an INR of 2.5-3.5 isrecommended, consistent with Food and Drug Administrationrecommendations. IS PATIENT ON ANTICOAGULANTS ? YESLIST ANTICOAGULANT/ANTI PLT MEDICATION: En oxaprin (Lovenox)Spec Comments: day 3CBC W/AUTO [id number] 06:26:00* Test Item Value Reference Range Interpretation Comments WHITE BLOOD CELL (test code = WBC) 6.5 x10 3/uL 5.0-12.0 N RED BLOOD CELL (test code = RBC) 4.01 x10 6/uL 4.70-6.10 L HEMOGLOBIN (test code = HGB) 11.6 g/dL 14.0-18.0 L HEMATOCRIT (test code = HCT) 34.6 % 37.0-49.0 L MEAN CELL VOLUME (test code = MCV) 86 fL 80-94 N MEAN CELL HGB (test code = MCH) 28.9 pg 27-31 N MEAN CELL HGB CONCENTRATION (test code = MCHC) 33.5 g/dL 33-37 N RED CELL DISTRIBUTION WIDTH (test code = RDW) 12.2 % 11.5-15. 5 N PLATELET COUNT (test code = PLT) 373 x10 3/uL 130-400 N MEAN PLATELET VOLUME (test code = MPV) 9.1 fL 9.4-16.4 L NEUTROPHIL % (test code = NT%) 53.9 % 43-65 N IMMATURE GRANULOCYTE % (test code = IG%) 1.4 % 0.0-2.0 N LYMPHOCYTE % (test code = LY%) 29.4 % 20.5-45.5 N MONOCYTE % (test code = MO%) 7.2 % 5.5-11.7 N EOSINOPHIL % (test code = EO%) 6.1 % 0.9-2.9 H BASOPHIL % (test code = BA%) 2.0 % 0.2-1.0 H NUCLEATED RBC % (test code = NRBC%) 0.0 % 0-1.0 N NEUTROPHIL # (test code = NT#) 3.53 x10 3/uL 2.2-4.8 N IMMATURE GRANULOCYTE # (test code = IG#) 0.09 x10 3/uL 0-0.03 H LYMPHOCYTE # (test code = LY#) 1.92 x10 3/uL 1.3-2.9 N MONOCYTE # (test code = MO#) 0.47 x10 3/uL 0.3-0.8 N EOSINOPHIL # (test code = EO#) 0.40 x10 3/uL 0.0-0.2 H BASOPHIL # (test code = BA#) 0.13 x10 3/uL 0.0-0.1 H Spec Comments: Order to be discontinued when PN is stoppedComments to Phleb: IF not already drawn todayBASI METABOLIC [id number] 05:29:00* Test Item Value Reference Range Interpretation Comments SODIUM (test code = NA) 135 mmol/L 137-145 L POTASSIUM (test code = K) 4.3 mmol/L 3.4-5.0 N CHLORIDE (test code = CL) 103 mmol/L 98-107 N CARBON DIOXIDE (test code = CO2) 22 mmol/L 22-30 N GLUCOSE (test code = GLU) 107 mg/dL 74-106 H BLOOD UREA NITROGEN (test code = BUN) 18 mg/dL 9-20 N GLOMERULAR FILTRATION RATE (test code = GFR) 106 >60 The estimated glomerular filtration rate is computed usingpatient race, age (>18), sex, and serum creatinine. If anyof the needed data elements are missing the Laboratory cannot compute an estimation of the glomerular filtration rate. CREATININE (test code = CREAT) 0.8 mg/dL 0.7-1.3 N CALCIUM (test code = CA) 9.6 mg/dL 8.4-10.2 N Spec Comments: Order to be discontinued when PN is stoppedComments to Phleb: IF not already drawn [id number] 05:29:00* Test Item Value Reference Range Interpretation Comments PHOSPHOROUS (test code = PHOS) 3.8 mg/dL 2.5-4.5 N Spec Comments: Order to be discontinued when PN is stoppedComments to Phleb: IF not already drawn [id number] 05:29:00* Test Item Value Reference Range Interpretation Comments MAGNESIUM (test code = MAG) 1.7 mg/dL 1.6-2.3 N Spec Comments: Order to be discontinued when PN is stoppedComments to Phleb: IF not already drawn todayCBC W/AUTO [id number] 05:12:00* Test Item Value Reference Range Interpretation Comments WHITE BLOOD CELL (test code = WBC) 6.9 x10 3/uL 5.0-12.0 N RED BLOOD CELL (test code = RBC) 4.13 x10 6/uL 4.70-6.10 L HEMOGLOBIN (test code = HGB) 12.1 g/dL 14.0-18.0 L HEMATOCRIT (test code = HCT) 36.0 % 37.0-49.0 L MEAN CELL VOLUME (test code = MCV) 87 fL 80-94 N MEAN CELL HGB (test code = MCH) 29.3 pg 27-31 N MEAN CELL HGB CONCENTRATION (test code = MCHC) 33.6 g/dL 33-37 N RED CELL DISTRIBUTION WIDTH (test code = RDW) 12.1 % 11.5-15. 5 N PLATELET COUNT (test code = PLT) 430 x10 3/uL 130-400 H MEAN PLATELET VOLUME (test code = MPV) 9.1 fL 9.4-16.4 L NEUTROPHIL % (test code = NT%) 67.0 % 43-65 H IMMATURE GRANULOCYTE % (test code = IG%) 2.3 % 0.0-2.0 H LYMPHOCYTE % (test code = LY%) 16.8 % 20.5-45.5 L MONOCYTE % (test code = MO%) 5.5 % 5.5-11.7 N EOSINOPHIL % (test code = EO%) 6.6 % 0.9-2.9 H BASOPHIL % (test code = BA%) 1.8 % 0.2-1.0 H NUCLEATED RBC % (test code = NRBC%) 0.0 % 0-1.0 N NEUTROPHIL # (test code = NT#) 4.59 x10 3/uL 2.2-4.8 N IMMATURE GRANULOCYTE # (test code = IG#) 0.16 x10 3/uL 0-0.03 H LYMPHOCYTE # (test code = LY#) 1.15 x10 3/uL 1.3-2.9 L MONOCYTE # (test code = MO#) 0.38 x10 3/uL 0.3-0.8 N EOSINOPHIL # (test code = EO#) 0.45 x10 3/uL 0.0-0.2 H BASOPHIL # (test code = BA#) 0.12 x10 3/uL 0.0-0.1 H Spec Comments: Order to be discontinued when PN is stoppedComments to Phleb: IF not already drawn today- XR CHEST 1 [id number] 14:11:00 FAX: Luis Enrique Daniel MD [phone] [place]: St: ADM FAX: Katy Pro MD [phone] Name: LAVONNE CONTRERAS [facility] : 1960 Age/S: 57/M [address] Unit #: [id number] Loc: C.0548 [place] [address] Phys: Luis Enrique Orellana MD Acct: [id number] Dis Date: Status: ADM IN PHONE #: [phone] Exam Date: 09/22/2018 1230 FAX #: [phone] Reason: CHECK FOR PICC LINE P LACEMENT EXAMS: CPT CODE: [id number] XR CHEST 1 V 32073 Location: B2. CHEST, FRONTAL VIEW HISTORY: CHECK FOR PICC LINE PLACEMENT FINDINGS: Since 09/16/18, right PICC line remains in good position within the SVC. The lungs are clear. Nasogastric tube within the stomach. The heart size is normal. Bones are unremarkable. IMPRESSION: No evidence of acute cardiopulmonary disease. Right PICC line in good position within the SVC. Nasogastric tube in good position within the stomach. at 1411 Reported and signed by: Reese Tucker MD CC: Luis Enrique Orellana MD; Katy Haines MD Technologist: Dilcia Drew Trnnhrd Date/Time/By: 09/22/2018 (1411) : By: [email or web address] PAGE 1 Signed Report FAX: Luis Enrique Daniel MD [phone] [place]: St: ADM FAX: Katy Pro MD [phone] Name: [facility] : 1960 Age/S: 57/M [address] Unit #: [id number] Loc: C.2847 [place] [address] Phys: Luis Enrique Orellana MD Acct: [id number] Dis Date: Status: ADM IN PHONE #: [phone] Exam Date: 09/22/2018 1230 FAX #: [phone] Reason: CHECK FOR PICC LINE PLACEMENT EXAMS: CPT CODE: [id number] XR CHEST 1 V 44940 <Continued> Orig Print D/T: S: 09/22/2018 (5488) PAGE 2 Signed Report - XR ABDOMEN [id number] 14:08:00 FAX: Luis Enrique Daniel MD [phone] [place]: St: ADM FAX: Katy Pro MD [phone] Name: LAVONNE CONTRERAS [facility] : 1960 Age/S: 57/M [address] Unit #: [id number] Loc: C.3317 [place] [address] Phys: Luis Enrique Orellana MD Acct: [id number] Dis Date: Status: ADM IN PHONE #: [phone] Exam Date: 09/22/2018 1230 FAX #: [phone] Reason: f/u ileus EXAMS: CPT CODE: [id number] XR ABDOMEN 2V 89099 EXAM: Abdominal x-ray, 2 views Location: T18 INDICATION: Follow-up ileus, partial small bowel obstruction COMPARISON: Small bowel follow-through on 09/17/2018 and abdominal x-ray on 09/08/2013 DISCUSSION: Flat and upright images of the abdomen are submitted. There are persistent small bowel air-fluid levels, with at least mildly dilated small bowel loops. Enteric contrast is seen within the colon. No intra-abdominal free air is seen. An upper enteric tube curls over the lumen of the stomach. No acute bony abnormalities are seen. There has been previous left sacroiliac joint fusion. 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 IMPRESSION: Persistent air-fluid levels with at least mildly dilated small bowel loops. These suggest a persistent partial obstruction. The upper enteric tube curls over the stomach. There is no evidence of intra-abdominal free air. at 1408 Reported and signed by: Rajinder Warner MD CC: Maddy Orellana MD; Katy Haines MD Technologist: Dilcia marquez Trnscrd Date/Time/By: 09/22/2018 (140 8) : By: [email or web address] PAGE 1 Signed Report FAX: Luis Enrique Daniel MD [phone] [place]: St: ADM FAX: Katy Pro MD [phone] Name: LAVONNE STAFFORD [facility] : 1960 A ge/S: 57/M [address] Unit #: [id number] Loc : C.33[address] [place] [address] Phys: Luis Enrique Orellana MD Acct: [id number] Dis Date: Status: ADM IN PHONE #: [phone] E xam Date: 09/22/2018 1230 FAX #: [phone] Reas on: f/u ileus EXAMS: CPT CODE: [id number] XR ABDOMEN 2V 55756 <Continued> Orig Print D/T: S: 09/22/2018 (7857) PAGE 2 Signed Report BASIC METABOLIC [id number] 12:31:00* Test Item Value Reference Range Interpretation Comments SODIUM (test code = NA) 137 mmol/L 137-145 N POTASSIUM (test code = K) 4.6 mmol/L 3.4-5.0 N CHLORIDE (test code = CL) 104 mmol/L 98-107 N CARBON DIOXIDE (test code = CO2) 26 mmol/L 22-30 N GLUCOSE (test code = GLU) 123 mg/dL 74-106 H BLOOD UREA NITROGEN (test code = BUN) 17 mg/dL 9-20 N GLOMERULAR FILTRATION RATE (test code = GFR) 124 >60 The estimated glomerular filtration rate is computed usingpatient race, age (>18), sex, and serum creatinine. If anyof the needed data elements are missing the Laboratory cannot compute an estimation of the glomerular filtration rate. CREATININE (test code = CREAT) 0.7 mg/dL 0.7-1.3 N CALCIUM (test code = CA) 9.2 mg/dL 8.4-10.2 N Spec Comments: IF not already drawn todaySpec Comments: [id number] 2018-09-22 12:31:00* Test Item Value Reference Range Interpretation Comments PHOSPHOROUS (test code = PHOS) mg/dL 2.5-4.5 Spec Comments: IF not already drawn todaySpec Comments: [id number] 2018-09-22 12:31:00* Test Item Value Reference Range Interpretation Comments TRIGLYCERIDES (test code = TRIG) mg/dL Spec Comments: IF not already drawn todaySpec Comments: [id number] 12:31:00* Test Item Value Reference Range Interpretation Comments MAGNESIUM (test code = MAG) mg/dL 1.6-2.3 Spec Comments: IF not already drawn todaySpec Comments: [id number] METABOLIC [id number] 12:31:00* Test Item Value Reference Range Interpretation Comments SODIUM (test code = NA) 137 mmol/L 137-145 N POTASSIUM (test code = K) 4.6 mmol/L 3.4-5.0 N CHLORIDE (test code = CL) 104 mmol/L 98-107 N CARBON DIOXIDE (test code = CO2) 26 mmol/L 22-30 N GLUCOSE (test code = GLU) 123 mg/dL 74-106 H BLOOD UREA NITROGEN (test code = BUN) 17 mg/dL 9-20 N GLOMERULAR FILTRATION RATE (test code = GFR) 124 >60 The estimated glomerular filtration rate is computed usingpatient race, age (>18), sex, and serum creatinine. If anyof the needed data elements are missing the Laboratory cannot compute an estimation of the glomerular filtration rate. CREATININE (test code = CREAT) 0.7 mg/dL 0.7-1.3 N CALCIUM (test code = CA) 9.2 mg/dL 8.4-10.2 N Spec Comments: IF not already drawn todaySpec Comments: [id number] 2018-09-22 12:31:00* Test Item Value Reference Range Interpretation Comments PHOSPHOROUS (test code = PHOS) 3.1 mg/dL 2.5-4.5 N Spec Comments: IF not already drawn todaySpec Comments: [id number] 2018-09-22 12:31:00* Test Item Value Reference Range Interpretation Comments TRIGLYCERIDES (test code = TRIG) 287 mg/dL TRIGLYCERIDES REFERENCE RANGE:Normal: <150 mg/dLBorderline High: 150-199 mg/dLHigh: 200-499 mg/dLVery High: >=500 mg/dL Spec Comments: IF not already drawn todaySpec Comments: [id number] 12:31:00* Test Item Value Reference Range Interpretation Comments MAGNESIUM (test code = MAG) 1.7 mg/dL 1.6-2.3 N Spec Comments: IF not already drawn todaySpec Comments: [id number] 2018-09-22 12:17:00* Test Item Value Reference Range Interpretation Comments PROTHROMBIN TIME PATIENT (test code = PTP) 12.1 SECONDS 9.2-12.1 N INTERNATIONAL NORMAL RATIO (test code = INR) 1.1 The INR is to be used only for monitoring ORAL ANTICOAGULANTTHERAPY. Indication INR Value1. Prophylaxis/treatment of: Venous Thrombosis, Pulmonary Embolism 2.0 - 3.02. Prevention of systemic embolism from: Tissue heart valves 2.0 - 3.0 Acute myocardial infarction (to present systemic embolism)* 2.0 - 3.0 Valvular heart disease 2.0 - 3.0 Atrial fibrillation 2.0 - 3.03. Mechanical prosthetic valves (high risk) 2.5 - 3.5 * If oral anticoagulant therapy is elected to preventrecurrent myocardial infarction, an INR of 2.5-3.5 isrecommended, consistent with Food and Drug Administrationrecommendations. IS PATIENT ON ANTICOAGULANTS ? YESLIST ANTICOAGULANT/ANTI PLT MEDICATION: Akil ferro (SQ)Spec Comments: [id number] W/AUTO [id number] 12:11:00* Test Item Value Reference Range Interpretation Comments WHITE BLOOD CELL (test code = WBC) 6.1 x10 3/uL 5.0-12.0 N RED BLOOD CELL (test code = RBC) 3.92 x10 6/uL 4.70-6.10 L HEMOGLOBIN (test code = HGB) 11.5 g/dL 14.0-18.0 L HEMATOCRIT (test code = HCT) 34.3 % 37.0-49.0 L MEAN CELL VOLUME (test code = MCV) 88 fL 80-94 N MEAN CELL HGB (test code = MCH) 29.3 pg 27-31 N MEAN CELL HGB CONCENTRATION (test code = MCHC) 33.5 g/dL 33-37 N RED CELL DISTRIBUTION WIDTH (test code = RDW) 11.9 % 11.5-15. 5 N PLATELET COUNT (test code = PLT) 412 x10 3/uL 130-400 H MEAN PLATELET VOLUME (test code = MPV) 8.9 fL 9.4-16.4 L NEUTROPHIL % (test code = NT%) 55.5 % 43-65 N IMMATURE GRANULOCYTE % (test code = IG%) 3.1 % 0.0-2.0 H LYMPHOCYTE % (test code = LY%) 27.3 % 20.5-45.5 N MONOCYTE % (test code = MO%) 6.9 % 5.5-11.7 N EOSINOPHIL % (test code = EO%) 5.9 % 0.9-2.9 H BASOPHIL % (test code = BA%) 1.3 % 0.2-1.0 H NUCLEATED RBC % (test code = NRBC%) 0.0 % 0-1.0 N NEUTROPHIL # (test code = NT#) 3.36 x10 3/uL 2.2-4.8 N IMMATURE GRANULOCYTE # (test code = IG#) 0.19 x10 3/uL 0-0.03 H LYMPHOCYTE # (test code = LY#) 1.66 x10 3/uL 1.3-2.9 N MONOCYTE # (test code = MO#) 0.42 x10 3/uL 0.3-0.8 N EOSINOPHIL # (test code = EO#) 0.36 x10 3/uL 0.0-0.2 H BASOPHIL # (test code = BA#) 0.08 x10 3/uL 0.0-0.1 N CBC W/MANUAL [id number] 03:32:00* Test Item Value Reference Range Interpretation Comments WHITE BLOOD CELL (test code = WBC) 6.6 x10 3/uL 5.0-12.0 N RED BLOOD CELL (test code = RBC) 3.67 x10 6/uL 4.70-6.10 L HEMOGLOBIN (test code = HGB) 10.8 g/dL 14.0-18.0 L HEMATOCRIT (test code = HCT) 32.5 % 37.0-49.0 L MEAN CELL VOLUME (test code = MCV) 89 fL 80-94 N MEAN CELL HGB (test code = MCH) 29.4 pg 27-31 N MEAN CELL HGB CONCENTRATION (test code = MCHC) 33.2 g/dL 33-37 N RED CELL DISTRIBUTION WIDTH (test code = RDW) 12.2 % 11.5-15. 5 N PLATELET COUNT (test code = PLT) 456 x10 3/uL 130-400 H MEAN PLATELET VOLUME (test code = MPV) 8.9 fL 9.4-16.4 L TOTAL CELLS COUNTED (test code = TCC) 100 #CELLS SEGMENTED NEUTROPHILS (test code = SEG) 45 % 43-65 N BAND NEUTROPHIL (test code = BAND) 6 % 0-1 H LYMPHOCYTE (test code = LYMPH) 16 % 20.5-45.5 L ATYPICAL LYMPH (test code = ALYMPH) 9 % 0-1 H MONOCYTE (test code = MON) 6 % 5.5-11.7 N EOSINOPHIL (test code = EOS) 10 % 0.9-2.9 H BASOPHIL (test code = BASO) 4 % 0.2-1.0 H METAMYELOCYTE (test code = META) 1 % 0-0 H MYELOCYTE (test code = MYELO) 4 % 0-0 H ANISOCYTOSIS (test code = ANISO) 1+ NONE SEEN A MICROCYTOSIS (test code = MICR) 1+ NONE SEEN A PLATELET ESTIMATE (test code = PLTEST) INCREASED ADEQUATE PLATELET MORPHOLOGY (test code = PLTMORPH) NORMAL NORMAL BASIC METABOLIC [id number] 03:09:00* Test Item Value Reference Range Interpretation Comments SODIUM (test code = NA) 138 mmol/L 137-145 N POTASSIUM (test code = K) 4.7 mmol/L 3.4-5.0 N CHLORIDE (test code = CL) 106 mmol/L 98-107 N CARBON DIOXIDE (test code = CO2) 27 mmol/L 22-30 N GLUCOSE (test code = GLU) 100 mg/dL 74-106 N BLOOD UREA NITROGEN (test code = BUN) 25 mg/dL 9-20 H GLOMERULAR FILTRATION RATE (test code = GFR) 93 >60 The estimated glomerular filtration rate is computed usingpatient race, age (>18), sex, and serum creatinine. If anyof the needed data elements are missing the Laboratory cannot compute an estimation of the glomerular filtration rate. CREATININE (test code = CREAT) 0.9 mg/dL 0.7-1.3 N CALCIUM (test code = CA) 9.3 mg/dL 8.4-10.2 N [id number] 03:09:00* Test Item Value Reference Range Interpretation Comments PHOSPHOROUS (test code = PHOS) 3.1 mg/dL 2.5-4.5 N [id number] 03:09:00* Test Item Value Reference Range Interpretation Comments MAGNESIUM (test code = MAG) 2.1 mg/dL 1.6-2.3 N CBC W/MANUAL [id number] 03:01:00* Test Item Value Reference Range Interpretation Comments WHITE BLOOD CELL (test code = WBC) 6.6 x10 3/uL 5.0-12.0 N RED BLOOD CELL (test code = RBC) 3.67 x10 6/uL 4.70-6.10 L HEMOGLOBIN (test code = HGB) 10.8 g/dL 14.0-18.0 L HEMATOCRIT (test code = HCT) 32.5 % 37.0-49.0 L MEAN CELL VOLUME (test code = MCV) 89 fL 80-94 N MEAN CELL HGB (test code = MCH) 29.4 pg 27-31 N MEAN CELL HGB CONCENTRATION (test code = MCHC) 33.2 g/dL 33-37 N RED CELL DISTRIBUTION WIDTH (test code = RDW) 12.2 % 11.5-15. 5 N PLATELET COUNT (test code = PLT) 456 x10 3/uL 130-400 H MEAN PLATELET VOLUME (test code = MPV) 8.9 fL 9.4-16.4 L TOTAL CELLS COUNTED (test code = TCC) #CELLS SEGMENTED NEUTROPHILS (test code = SEG) % 43-65 LYMPHOCYTE (test code = LYMPH) % 20.5-45.5 CBC W/MANUAL [id number] 03:01:00* Test Item Value Reference Range Interpretation Comments WHITE BLOOD CELL (test code = WBC) 6.6 x10 3/uL 5.0-12.0 N RED BLOOD CELL (test code = RBC) 3.67 x10 6/uL 4.70-6.10 L HEMOGLOBIN (test code = HGB) 10.8 g/dL 14.0-18.0 L HEMATOCRIT (test code = HCT) 32.5 % 37.0-49.0 L MEAN CELL VOLUME (test code = MCV) 89 fL 80-94 N MEAN CELL HGB (test code = MCH) 29.4 pg 27-31 N MEAN CELL HGB CONCENTRATION (test code = MCHC) 33.2 g/dL 33-37 N RED CELL DISTRIBUTION WIDTH (test code = RDW) 12.2 % 11.5-15. 5 N PLATELET COUNT (test code = PLT) 456 x10 3/uL 130-400 H MEAN PLATELET VOLUME (test code = MPV) 8.9 fL 9.4-16.4 L TOTAL CELLS COUNTED (test code = TCC) #CELLS SEGMENTED NEUTROPHILS (test code = SEG) % 43-65 LYMPHOCYTE (test code = LYMPH) % 20.5-45.5 CBC W/MANUAL [id number] 07:34:00* Test Item Value Reference Range Interpretation Comments WHITE BLOOD CELL (test code = WBC) 8.5 x10 3/uL 5.0-12.0 N RED BLOOD CELL (test code = RBC) 3.78 x10 6/uL 4.70-6.10 L HEMOGLOBIN (test code = HGB) 11.0 g/dL 14.0-18.0 L HEMATOCRIT (test code = HCT) 33.6 % 37.0-49.0 L MEAN CELL VOLUME (test code = MCV) 89 fL 80-94 N MEAN CELL HGB (test code = MCH) 29.1 pg 27-31 N MEAN CELL HGB CONCENTRATION (test code = MCHC) 32.7 g/dL 33-37 L RED CELL DISTRIBUTION WIDTH (test code = RDW) 12.2 % 11.5-15. 5 N PLATELET COUNT (test code = PLT) 487 x10 3/uL 130-400 H MEAN PLATELET VOLUME (test code = MPV) 9.0 fL 9.4-16.4 L TOTAL CELLS COUNTED (test code = TCC) 100 #CELLS SEGMENTED NEUTROPHILS (test code = SEG) 61 % 43-65 N BAND NEUTROPHIL (test code = BAND) 2 % 0-1 H LYMPHOCYTE (test code = LYMPH) 13 % 20.5-45.5 L ATYPICAL LYMPH (test code = ALYMPH) 3 % 0-1 H MONOCYTE (test code = MON) 8 % 5.5-11.7 N EOSINOPHIL (test code = EOS) 9 % 0.9-2.9 H BASOPHIL (test code = BASO) 2 % 0.2-1.0 H MYELOCYTE (test code = MYELO) 2 % 0-0 H POIKILOCYTOSIS (test code = POIK) 1+ NONE SEEN A PLATELET ESTIMATE (test code = PLTEST) ADEQUATE ADEQUATE PLATELET MORPHOLOGY (test code = PLTMORPH) LARGE PLATELETS SEEN NOR MAL BASIC METABOLIC [id number] 07:03:00* Test Item Value Reference Range Interpretation Comments SODIUM (test code = NA) 138 mmol/L 137-145 N POTASSIUM (test code = K) 4.2 mmol/L 3.4-5.0 N CHLORIDE (test code = CL) 103 mmol/L 98-107 N CARBON DIOXIDE (test code = CO2) 23 mmol/L 22-30 N GLUCOSE (test code = GLU) 105 mg/dL 74-106 N BLOOD UREA NITROGEN (test code = BUN) 33 mg/dL 9-20 H GLOMERULAR FILTRATION RATE (test code = GFR) 82 >60 The estimated glomerular filtration rate is computed usingpatient race, age (>18), sex, and serum creatinine. If anyof the needed data elements are missing the Laboratory cannot compute an estimation of the glomerular filtration rate. CREATININE (test code = CREAT) 1.0 mg/dL 0.7-1.3 N CALCIUM (test code = CA) 9.2 mg/dL 8.4-10.2 N [id number] 07:03:00* Test Item Value Reference Range Interpretation Comments PHOSPHOROUS (test code = PHOS) 3.1 mg/dL 2.5-4.5 N [id number] 07:03:00* Test Item Value Reference Range Interpretation Comments MAGNESIUM (test code = MAG) 2.2 mg/dL 1.6-2.3 N BASIC METABOLIC [id number] 06:52:00* Test Item Value Reference Range Interpretation Comments SODIUM (test code = NA) 138 mmol/L 137-145 N POTASSIUM (test code = K) 4.2 mmol/L 3.4-5.0 N CHLORIDE (test code = CL) 103 mmol/L 98-107 N CARBON DIOXIDE (test code = CO2) 23 mmol/L 22-30 N GLUCOSE (test code = GLU) 105 mg/dL 74-106 N BLOOD UREA NITROGEN (test code = BUN) 33 mg/dL 9-20 H GLOMERULAR FILTRATION RATE (test code = GFR) 82 >60 The estimated glomerular filtration rate is computed usingpatient race, age (>18), sex, and serum creatinine. If anyof the needed data elements are missing the Laboratory cannot compute an estimation of the glomerular filtration rate. CREATININE (test code = CREAT) 1.0 mg/dL 0.7-1.3 N CALCIUM (test code = CA) 9.2 mg/dL 8.4-10.2 N [id number] 06:52:00* Test Item Value Reference Range Interpretation Comments PHOSPHOROUS (test code = PHOS) mg/dL 2.5-4.5 [id number] 06:52:00* Test Item Value Reference Range Interpretation Comments MAGNESIUM (test code = MAG) mg/dL 1.6-2.3 CBC W/MANUAL [id number] 06:33:00* Test Item Value Reference Range Interpretation Comments WHITE BLOOD CELL (test code = WBC) 8.5 x10 3/uL 5.0-12.0 N RED BLOOD CELL (test code = RBC) 3.78 x10 6/uL 4.70-6.10 L HEMOGLOBIN (test code = HGB) 11.0 g/dL 14.0-18.0 L HEMATOCRIT (test code = HCT) 33.6 % 37.0-49.0 L MEAN CELL VOLUME (test code = MCV) 89 fL 80-94 N MEAN CELL HGB (test code = MCH) 29.1 pg 27-31 N MEAN CELL HGB CONCENTRATION (test code = MCHC) 32.7 g/dL 33-37 L RED CELL DISTRIBUTION WIDTH (test code = RDW) 12.2 % 11.5-15. 5 N PLATELET COUNT (test code = PLT) 487 x10 3/uL 130-400 H MEAN PLATELET VOLUME (test code = MPV) 9.0 fL 9.4-16.4 L TOTAL CELLS COUNTED (test code = TCC) #CELLS SEGMENTED NEUTROPHILS (test code = SEG) % 43-65 LYMPHOCYTE (test code = LYMPH) % 20.5-45.5 CBC W/MANUAL [id number] 06:33:00* Test Item Value Reference Range Interpretation Comments WHITE BLOOD CELL (test code = WBC) 8.5 x10 3/uL 5.0-12.0 N RED BLOOD CELL (test code = RBC) 3.78 x10 6/uL 4.70-6.10 L HEMOGLOBIN (test code = HGB) 11.0 g/dL 14.0-18.0 L HEMATOCRIT (test code = HCT) 33.6 % 37.0-49.0 L MEAN CELL VOLUME (test code = MCV) 89 fL 80-94 N MEAN CELL HGB (test code = MCH) 29.1 pg 27-31 N MEAN CELL HGB CONCENTRATION (test code = MCHC) 32.7 g/dL 33-37 L RED CELL DISTRIBUTION WIDTH (test code = RDW) 12.2 % 11.5-15. 5 N PLATELET COUNT (test code = PLT) 487 x10 3/uL 130-400 H MEAN PLATELET VOLUME (test code = MPV) 9.0 fL 9.4-16.4 L TOTAL CELLS COUNTED (test code = TCC) #CELLS SEGMENTED NEUTROPHILS (test code = SEG) % 43-65 LYMPHOCYTE (test code = LYMPH) % 20.5-45.5 CBC W/MANUAL [id number] 07:52:00* Test Item Value Reference Range Interpretation Comments WHITE BLOOD CELL (test code = WBC) 8.9 x10 3/uL 5.0-12.0 N RED BLOOD CELL (test code = RBC) 3.87 x10 6/uL 4.70-6.10 L HEMOGLOBIN (test code = HGB) 11.4 g/dL 14.0-18.0 L HEMATOCRIT (test code = HCT) 34.4 % 37.0-49.0 L MEAN CELL VOLUME (test code = MCV) 89 fL 80-94 N MEAN CELL HGB (test code = MCH) 29.5 pg 27-31 N MEAN CELL HGB CONCENTRATION (test code = MCHC) 33.1 g/dL 33-37 N RED CELL DISTRIBUTION WIDTH (test code = RDW) 12.5 % 11.5-15. 5 N PLATELET COUNT (test code = PLT) 491 x10 3/uL 130-400 H MEAN PLATELET VOLUME (test code = MPV) 9.0 fL 9.4-16.4 L TOTAL CELLS COUNTED (test code = TCC) 100 #CELLS SEGMENTED NEUTROPHILS (test code = SEG) 56 % 43-65 N LYMPHOCYTE (test code = LYMPH) 16 % 20.5-45.5 L ATYPICAL LYMPH (test code = ALYMPH) 11 % 0-1 H MONOCYTE (test code = MON) 5 % 5.5-11.7 L EOSINOPHIL (test code = EOS) 8 % 0.9-2.9 H METAMYELOCYTE (test code = META) 2 % 0-0 H MYELOCYTE (test code = MYELO) 2 % 0-0 H PLATELET ESTIMATE (test code = PLTEST) INCREASED ADEQUATE PLATELET MORPHOLOGY (test code = PLTMORPH) NORMAL NORMAL BASIC METABOLIC [id number] 07:43:00* Test Item Value Reference Range Interpretation Comments SODIUM (test code = NA) 138 mmol/L 137-145 N POTASSIUM (test code = K) 3.8 mmol/L 3.4-5.0 N CHLORIDE (test code = CL) 98 mmol/L 98-107 N CARBON DIOXIDE (test code = CO2) 31 mmol/L 22-30 H GLUCOSE (test code = GLU) 114 mg/dL 74-106 H BLOOD UREA NITROGEN (test code = BUN) 40 mg/dL 9-20 H GLOMERULAR FILTRATION RATE (test code = GFR) 74 >60 The estimated glomerular filtration rate is computed usingpatient race, age (>18), sex, and serum creatinine. If anyof the needed data elements are missing the Laboratory cannot compute an estimation of the glomerular filtration rate. CREATININE (test code = CREAT) 1.1 mg/dL 0.7-1.3 N CALCIUM (test code = CA) 9.1 mg/dL 8.4-10.2 N [id number] 07:43:00* Test Item Value Reference Range Interpretation Comments PHOSPHOROUS (test code = PHOS) 4.0 mg/dL 2.5-4.5 N [id number] 07:43:00* Test Item Value Reference Range Interpretation Comments MAGNESIUM (test code = MAG) 2.4 mg/dL 1.6-2.3 H CBC W/MANUAL [id number] 07:20:00* Test Item Value Reference Range Interpretation Comments WHITE BLOOD CELL (test code = WBC) 8.9 x10 3/uL 5.0-12.0 N RED BLOOD CELL (test code = RBC) 3.87 x10 6/uL 4.70-6.10 L HEMOGLOBIN (test code = HGB) 11.4 g/dL 14.0-18.0 L HEMATOCRIT (test code = HCT) 34.4 % 37.0-49.0 L MEAN CELL VOLUME (test code = MCV) 89 fL 80-94 N MEAN CELL HGB (test code = MCH) 29.5 pg 27-31 N MEAN CELL HGB CONCENTRATION (test code = MCHC) 33.1 g/dL 33-37 N RED CELL DISTRIBUTION WIDTH (test code = RDW) 12.5 % 11.5-15. 5 N PLATELET COUNT (test code = PLT) 491 x10 3/uL 130-400 H MEAN PLATELET VOLUME (test code = MPV) 9.0 fL 9.4-16.4 L TOTAL CELLS COUNTED (test code = TCC) #CELLS SEGMENTED NEUTROPHILS (test code = SEG) % 43-65 LYMPHOCYTE (test code = LYMPH) % 20.5-45.5 CBC W/MANUAL [id number] 07:20:00* Test Item Value Reference Range Interpretation Comments WHITE BLOOD CELL (test code = WBC) 8.9 x10 3/uL 5.0-12.0 N RED BLOOD CELL (test code = RBC) 3.87 x10 6/uL 4.70-6.10 L HEMOGLOBIN (test code = HGB) 11.4 g/dL 14.0-18.0 L HEMATOCRIT (test code = HCT) 34.4 % 37.0-49.0 L MEAN CELL VOLUME (test code = MCV) 89 fL 80-94 N MEAN CELL HGB (test code = MCH) 29.5 pg 27-31 N MEAN CELL HGB CONCENTRATION (test code = MCHC) 33.1 g/dL 33-37 N RED CELL DISTRIBUTION WIDTH (test code = RDW) 12.5 % 11.5-15. 5 N PLATELET COUNT (test code = PLT) 491 x10 3/uL 130-400 H MEAN PLATELET VOLUME (test code = MPV) 9.0 fL 9.4-16.4 L TOTAL CELLS COUNTED (test code = TCC) #CELLS SEGMENTED NEUTROPHILS (test code = SEG) % 43-65 LYMPHOCYTE (test code = LYMPH) % 20.5-45.5 BASIC METABOLIC [id number] 08:05:00* Test Item Value Reference Range Interpretation Comments SODIUM (test code = NA) 138 mmol/L 137-145 N POTASSIUM (test code = K) 3.6 mmol/L 3.4-5.0 N CHLORIDE (test code = CL) 97 mmol/L 98-107 L CARBON DIOXIDE (test code = CO2) 29 mmol/L 22-30 N GLUCOSE (test code = GLU) 135 mg/dL 74-106 H BLOOD UREA NITROGEN (test code = BUN) 33 mg/dL 9-20 H GLOMERULAR FILTRATION RATE (test code = GFR) 67 >60 The estimated glomerular filtration rate is computed usingpatient race, age (>18), sex, and serum creatinine. If anyof the needed data elements are missing the Laboratory cannot compute an estimation of the glomerular filtration rate. CREATININE (test code = CREAT) 1.2 mg/dL 0.7-1.3 N CALCIUM (test code = CA) 9.2 mg/dL 8.4-10.2 N [id number] 08:05:00* Test Item Value Reference Range Interpretation Comments PHOSPHOROUS (test code = PHOS) 4.6 mg/dL 2.5-4.5 H [id number] 08:05:00* Test Item Value Reference Range Interpretation Comments MAGNESIUM (test code = MAG) 2.5 mg/dL 1.6-2.3 H BASIC METABOLIC [id number] 08:04:00* Test Item Value Reference Range Interpretation Comments SODIUM (test code = NA) 138 mmol/L 137-145 N POTASSIUM (test code = K) 3.6 mmol/L 3.4-5.0 N CHLORIDE (test code = CL) 97 mmol/L 98-107 L CARBON DIOXIDE (test code = CO2) 29 mmol/L 22-30 N GLUCOSE (test code = GLU) 135 mg/dL 74-106 H BLOOD UREA NITROGEN (test code = BUN) 33 mg/dL 9-20 H GLOMERULAR FILTRATION RATE (test code = GFR) 67 >60 The estimated glomerular filtration rate is computed usingpatient race, age (>18), sex, and serum creatinine. If anyof the needed data elements are missing the Laboratory cannot compute an estimation of the glomerular filtration rate. CREATININE (test code = CREAT) 1.2 mg/dL 0.7-1.3 N CALCIUM (test code = CA) 9.2 mg/dL 8.4-10.2 N [id number] 08:04:00* Test Item Value Reference Range Interpretation Comments PHOSPHOROUS (test code = PHOS) mg/dL 2.5-4.5 [id number] 08:04:00* Test Item Value Reference Range Interpretation Comments MAGNESIUM (test code = MAG) mg/dL 1.6-2.3 BASIC METABOLIC [id number] 07:27:00* Test Item Value Reference Range Interpretation Comments SODIUM (test code = NA) TEST NOT PERFORMED mmol/L 137-145 TEST NOT PERFORMED. POSSIBLE CONTAMINATION. SUGGESTSRECOLLECTION. INFORMED [id number] reported result: 129 mmol/LEdited by: NAYELI on 09/18/18:0726~~ Corrected Report ~~Reason (required): BASIC METABOLIC [id number] 07:12:00* Test Item Value Reference Range Interpretation Comments SODIUM (test code = NA) 129 mmol/L 137-145 L POTASSIUM (test code = K) 6.1 mmol/L 3.4-5.0 H IS THE SAMPLE HEMOLYZED?:NHEMOLYSIS GRADE: CHLORIDE (test code = CL) 92 mmol/L 98-107 L CARBON DIOXIDE (test code = CO2) 20 mmol/L 22-30 L GLUCOSE (test code = GLU) mg/dL 74-106 BLOOD UREA NITROGEN (test code = BUN) 28 mg/dL 9-20 H GLOMERULAR FILTRATION RATE (test code = GFR) 56 >60 L The estimated glomerular filtration rate is computed usingpatient race, age (>18), sex, and serum creatinine. If anyof the needed data elements are missing the Laboratory cannot compute an estimation of the glomerular filtration rate. CREATININE (test code = CREAT) 1.4 mg/dL 0.7-1.3 H CALCIUM (test code = CA) 9.2 mg/dL 8.4-10.2 N [id number] 07:12:00* Test Item Value Reference Range Interpretation Comments PHOSPHOROUS (test code = PHOS) 9.2 mg/dL 2.5-4.5 H [id number] 07:12:00* Test Item Value Reference Range Interpretation Comments MAGNESIUM (test code = MAG) 2.9 mg/dL 1.6-2.3 H CBC W/MANUAL [id number] 07:00:00* Test Item Value Reference Range Interpretation Comments WHITE BLOOD CELL (test code = WBC) 10.7 x10 3/uL 5.0-12.0 N RED BLOOD CELL (test code = RBC) 4.08 x10 6/uL 4.70-6.10 L HEMOGLOBIN (test code = HGB) 12.1 g/dL 14.0-18.0 L HEMATOCRIT (test code = HCT) 39.2 % 37.0-49.0 N MEAN CELL VOLUME (test code = MCV) 96 fL 80-94 H MEAN CELL HGB (test code = MCH) 29.7 pg 27-31 N MEAN CELL HGB CONCENTRATION (test code = MCHC) 30.9 g/dL 33-37 L RED CELL DISTRIBUTION WIDTH (test code = RDW) 13.0 % 11.5-15. 5 N PLATELET COUNT (test code = PLT) 526 x10 3/uL 130-400 H MEAN PLATELET VOLUME (test code = MPV) 9.8 fL 9.4-16.4 N TOTAL CELLS COUNTED (test code = TCC) 100 #CELLS SEGMENTED NEUTROPHILS (test code = SEG) 62 % 43-65 N BAND NEUTROPHIL (test code = BAND) 2 % 0-1 H LYMPHOCYTE (test code = LYMPH) 14 % 20.5-45.5 L MONOCYTE (test code = MON) 6 % 5.5-11.7 N EOSINOPHIL (test code = EOS) 10 % 0.9-2.9 H BASOPHIL (test code = BASO) 1 % 0.2-1.0 N METAMYELOCYTE (test code = META) 2 % 0-0 H MYELOCYTE (test code = MYELO) 3 % 0-0 H POLYCHROMASIA (test code = POLC) 1+ NONE SEEN A POIKILOCYTOSIS (test code = POIK) 1+ NONE SEEN A ANISOCYTOSIS (test code = ANISO) 1+ NONE SEEN A PLATELET ESTIMATE (test code = PLTEST) INCREASED ADEQUATE PLATELET MORPHOLOGY (test code = PLTMORPH) NORMAL NORMAL CBC W/MANUAL [id number] 06:25:00* Test Item Value Reference Range Interpretation Comments WHITE BLOOD CELL (test code = WBC) 10.7 x10 3/uL 5.0-12.0 N RED BLOOD CELL (test code = RBC) 4.08 x10 6/uL 4.70-6.10 L HEMOGLOBIN (test code = HGB) 12.1 g/dL 14.0-18.0 L HEMATOCRIT (test code = HCT) 39.2 % 37.0-49.0 N MEAN CELL VOLUME (test code = MCV) 96 fL 80-94 H MEAN CELL HGB (test code = MCH) 29.7 pg 27-31 N MEAN CELL HGB CONCENTRATION (test code = MCHC) 30.9 g/dL 33-37 L RED CELL DISTRIBUTION WIDTH (test code = RDW) 13.0 % 11.5-15. 5 N PLATELET COUNT (test code = PLT) 526 x10 3/uL 130-400 H MEAN PLATELET VOLUME (test code = MPV) 9.8 fL 9.4-16.4 N TOTAL CELLS COUNTED (test code = TCC) #CELLS SEGMENTED NEUTROPHILS (test code = SEG) % 43-65 LYMPHOCYTE (test code = LYMPH) % 20.5-45.5 CBC W/MANUAL [id number] 06:25:00* Test Item Value Reference Range Interpretation Comments WHITE BLOOD CELL (test code = WBC) 10.7 x10 3/uL 5.0-12.0 N RED BLOOD CELL (test code = RBC) 4.08 x10 6/uL 4.70-6.10 L HEMOGLOBIN (test code = HGB) 12.1 g/dL 14.0-18.0 L HEMATOCRIT (test code = HCT) 39.2 % 37.0-49.0 N MEAN CELL VOLUME (test code = MCV) 96 fL 80-94 H MEAN CELL HGB (test code = MCH) 29.7 pg 27-31 N MEAN CELL HGB CONCENTRATION (test code = MCHC) 30.9 g/dL 33-37 L RED CELL DISTRIBUTION WIDTH (test code = RDW) 13.0 % 11.5-15. 5 N PLATELET COUNT (test code = PLT) 526 x10 3/uL 130-400 H MEAN PLATELET VOLUME (test code = MPV) 9.8 fL 9.4-16.4 N TOTAL CELLS COUNTED (test code = TCC) #CELLS SEGMENTED NEUTROPHILS (test code = SEG) % 43-65 LYMPHOCYTE (test code = LYMPH) % 20.5-45.5 - XR SMALL [id number] 06:04:00 FAX: Luis Enrique Daniel MD [phone] [place]: St: ADM FAX: Katy Pro MD [phone] Name: LAVONNE CONTRERAS [facility] : 1960 Age/S: 57/M [address] Unit #: [id number] Loc: C.[address] [place] [address] Phys: Luis Enrique Orellana MD Acct: [id number] Dis Date: Status: ADM IN PHONE #: [phone] Exam Date: 09/17/20182011 FAX #: [phone] Reason: SBO EXAMS: CPT CODE: [id number] XR SMALL BOWEL 36065 HISTORY: Male, 57 years of age with SBO EXAM: Small bowel series. COMPARISON: Correlation made with CT abdomen and pelvis with IV contrast performed 08/13/2018; small bowel series performed 08/14/2018 TECHNIQUE: The patient was given Gastrografin through the enteric tube and sequential images were obtained of the abdomen over t esperanza. The study was carried out to 8 hours. FINDINGS: Implementation Lead f ilm shows enteric tube projects over the stomach, surgical clips in the ga llbladder fossa, and surgical skin arik project over the lower abdomen and pelvis. Several dilated loops of small bowel are seen in the upper abd omen. Stomach is nondilated. There is persistent dilatation of du odenum and jejunum throughout the exam, measuring up to 7 cm diameter. Con trast is not seen in the colon until the 8 hour image. The colon is relatively decompressed. IMPRESSION: Delayed contrast transit wi th persistent proximal small bowel distention and relatively decompresse d colon. Findings suspicious for partial small bowel obstruction. Location code: R16 at 0604 Reported and signed by: Ara Teague MD CC: Luis Enrique Orellana MD; Katy Haines MD Technologist: MARY GUEVARA; Dru Montejod Date/Time/By: 09/18/2018 (0604) : By: TannaCLW PAGE 1 Signed Report FAX: Maddy Daniel MD [phone] [place]: St: ADM FAX: Katy Pro MD [phone] Name: LAVONNE CONTRERAS [facility] : 1960 Age/S: 57/M [address] Unit #: [id number] Loc: C.3317 [place] [address] Phys: Luis Enrique Orellana MD Acct: [id number] Dis Date: Status: ADM IN PHONE #: [phone] Exam Date: 09/17/20182011 FAX #: [phone] Reason: SBO EXAMS: CPT CODE: [id number] XR SMALL BOWEL 58430 <Continued> Orig Print D/T: S: 09/18/2018 (0607) PAGE 2 Signed Report CBC W/MANUAL [id number] 08:27:00* Test Item Value Reference Range Interpretation Comments WHITE BLOOD CELL (test code = WBC) 9.7 x10 3/uL 5.0-12.0 N RED BLOOD CELL (test code = RBC) 3.83 x10 6/uL 4.70-6.10 L HEMOGLOBIN (test code = HGB) 11.2 g/dL 14.0-18.0 L HEMATOCRIT (test code = HCT) 33.5 % 37.0-49.0 L MEAN CELL VOLUME (test code = MCV) 88 fL 80-94 N MEAN CELL HGB (test code = MCH) 29.2 pg 27-31 N MEAN CELL HGB CONCENTRATION (test code = MCHC) 33.4 g/dL 33-37 N RED CELL DISTRIBUTION WIDTH (test code = RDW) 12.2 % 11.5-15. 5 N PLATELET COUNT (test code = PLT) 417 x10 3/uL 130-400 H MEAN PLATELET VOLUME (test code = MPV) 9.2 fL 9.4-16.4 L TOTAL CELLS COUNTED (test code = TCC) 100 #CELLS SEGMENTED NEUTROPHILS (test code = SEG) 67 % 43-65 H BAND NEUTROPHIL (test code = BAND) 3 % 0-1 H LYMPHOCYTE (test code = LYMPH) 8 % 20.5-45.5 L ATYPICAL LYMPH (test code = ALYMPH) 7 % 0-1 H MONOCYTE (test code = MON) 9 % 5.5-11.7 N EOSINOPHIL (test code = EOS) 4 % 0.9-2.9 H METAMYELOCYTE (test code = META) 1 % 0-0 H MYELOCYTE (test code = MYELO) 1 % 0-0 H POLYCHROMASIA (test code = POLC) 1+ NONE SEEN A PLATELET ESTIMATE (test code = PLTEST) INCREASED ADEQUATE PLATELET MORPHOLOGY (test code = PLTMORPH) PLATELET CLUMPS SEEN NOR MAL BASIC METABOLIC [id number] 07:36:00* Test Item Value Reference Range Interpretation Comments SODIUM (test code = NA) 138 mmol/L 137-145 N POTASSIUM (test code = K) 3.7 mmol/L 3.4-5.0 N CHLORIDE (test code = CL) 100 mmol/L 98-107 N CARBON DIOXIDE (test code = CO2) 29 mmol/L 22-30 N GLUCOSE (test code = GLU) 119 mg/dL 74-106 H BLOOD UREA NITROGEN (test code = BUN) 22 mg/dL 9-20 H GLOMERULAR FILTRATION RATE (test code = GFR) 93 >60 The estimated glomerular filtration rate is computed usingpatient race, age (>18), sex, and serum creatinine. If anyof the needed data elements are missing the Laboratory cannot compute an estimation of the glomerular filtration rate. CREATININE (test code = CREAT) 0.9 mg/dL 0.7-1.3 N CALCIUM (test code = CA) 9.2 mg/dL 8.4-10.2 N [id number] 07:36:00* Test Item Value Reference Range Interpretation Comments PHOSPHOROUS (test code = PHOS) 3.8 mg/dL 2.5-4.5 N [id number] 07:36:00* Test Item Value Reference Range Interpretation Comments MAGNESIUM (test code = MAG) 2.3 mg/dL 1.6-2.3 N BASIC METABOLIC [id number] 07:35:00* Test Item Value Reference Range Interpretation Comments SODIUM (test code = NA) 138 mmol/L 137-145 N POTASSIUM (test code = K) 3.7 mmol/L 3.4-5.0 N CHLORIDE (test code = CL) 100 mmol/L 98-107 N CARBON DIOXIDE (test code = CO2) 29 mmol/L 22-30 N GLUCOSE (test code = GLU) 119 mg/dL 74-106 H BLOOD UREA NITROGEN (test code = BUN) 22 mg/dL 9-20 H GLOMERULAR FILTRATION RATE (test code = GFR) 93 >60 The estimated glomerular filtration rate is computed usingpatient race, age (>18), sex, and serum creatinine. If anyof the needed data elements are missing the Laboratory cannot compute an estimation of the glomerular filtration rate. CREATININE (test code = CREAT) 0.9 mg/dL 0.7-1.3 N CALCIUM (test code = CA) 9.2 mg/dL 8.4-10.2 N [id number] 07:35:00* Test Item Value Reference Range Interpretation Comments PHOSPHOROUS (test code = PHOS) mg/dL 2.5-4.5 [id number] 07:35:00* Test Item Value Reference Range Interpretation Comments MAGNESIUM (test code = MAG) mg/dL 1.6-2.3 CBC W/MANUAL [id number] 07:21:00* Test Item Value Reference Range Interpretation Comments WHITE BLOOD CELL (test code = WBC) 9.7 x10 3/uL 5.0-12.0 N RED BLOOD CELL (test code = RBC) 3.83 x10 6/uL 4.70-6.10 L HEMOGLOBIN (test code = HGB) 11.2 g/dL 14.0-18.0 L HEMATOCRIT (test code = HCT) 33.5 % 37.0-49.0 L MEAN CELL VOLUME (test code = MCV) 88 fL 80-94 N MEAN CELL HGB (test code = MCH) 29.2 pg 27-31 N MEAN CELL HGB CONCENTRATION (test code = MCHC) 33.4 g/dL 33-37 N RED CELL DISTRIBUTION WIDTH (test code = RDW) 12.2 % 11.5-15. 5 N PLATELET COUNT (test code = PLT) 417 x10 3/uL 130-400 H MEAN PLATELET VOLUME (test code = MPV) 9.2 fL 9.4-16.4 L TOTAL CELLS COUNTED (test code = TCC) #CELLS SEGMENTED NEUTROPHILS (test code = SEG) % 43-65 LYMPHOCYTE (test code = LYMPH) % 20.5-45.5 CBC W/MANUAL [id number] 07:21:00* Test Item Value Reference Range Interpretation Comments WHITE BLOOD CELL (test code = WBC) 9.7 x10 3/uL 5.0-12.0 N RED BLOOD CELL (test code = RBC) 3.83 x10 6/uL 4.70-6.10 L HEMOGLOBIN (test code = HGB) 11.2 g/dL 14.0-18.0 L HEMATOCRIT (test code = HCT) 33.5 % 37.0-49.0 L MEAN CELL VOLUME (test code = MCV) 88 fL 80-94 N MEAN CELL HGB (test code = MCH) 29.2 pg 27-31 N MEAN CELL HGB CONCENTRATION (test code = MCHC) 33.4 g/dL 33-37 N RED CELL DISTRIBUTION WIDTH (test code = RDW) 12.2 % 11.5-15. 5 N PLATELET COUNT (test code = PLT) 417 x10 3/uL 130-400 H MEAN PLATELET VOLUME (test code = MPV) 9.2 fL 9.4-16.4 L TOTAL CELLS COUNTED (test code = TCC) #CELLS SEGMENTED NEUTROPHILS (test code = SEG) % 43-65 LYMPHOCYTE (test code = LYMPH) % 20.5-45.5 - XR CHEST 1 [id number] 23:16:00 FAX: Luis Enrique Daniel MD [phone] [place]: [facility]: [facility] FAX: Katy Pro MD [phone] Name: LAVONNE CONTRERAS [place] : 1960 Age/S: 57/M [address] Unit #: [id number] Loc: C.33[address] [place] [address] Phys: Luis Enrique Orellana MD Acct: [id number] Dis Date: Status: ADM IN PHONE #: [phone] Exam Date: 09/16/2018 2300 FAX #: [phone] Reason: NG TUBE PLACEMENT EXAMS: CPT CODE: [id number] XR CHEST 1 V 00619 EXAM: Portable chest one view. Location code:J9 HISTORY: Dyspnea COMPARISON: 09/15/2018 COMMENT: Stable position of right-sided PICC line and NG tube.. The lungs and pleural spaces are clear. Lungs are normally expanded. The aorta, pulmonary vasculature and mediastinum are within normal limits. Cardiac silhouette is normal in size and contour. Visualized skeletal structures are un remarkable. IMPRESSION: No active disease in the chest. at 5100 Reported and signed by: Cory Barrios MD CC: Luis Enrique Orellana MD; Katy Haines MD Technologist: YANA SHEARER RT (R) Trnscrd Date/Time/By: 09/16/2018 (2566) : By: [email or web address] PAGE 1 Signed Report FAX: Luis Enrique Daniel MD [phone] [place]: [facility]: ADM FAX: Katy Pro MD [phone] Name: LAVONNE CONTRERAS : 1960 Age /S: 57/M [address] Unit #: [id number] Loc: C.3317 [place] [address] Phys: Luis Enrique Orellana MD Acct: [id number] Dis Date: Status: ADM IN PHONE #: [phone] Exam Date: 09/16/2018 2300 FAX #: [phone] Reason: NG TUBE PLACEMENT EXAMS: CPT CODE: [id number] XR CHEST 1 V 08073 <Continued> Orig Print D/T: S: 09/16/2018 (3874) PAGE 2 Signed Report BASIC METABOLIC PANEL 2018-09-16 06:06:00* Test Item Value Reference Range Interpretation Comments SODIUM (test code = NA) 137 mmol/L 137-145 N POTASSIUM (test code = K) 3.7 mmol/L 3.4-5.0 N CHLORIDE (test code = CL) 102 mmol/L 98-107 N CARBON DIOXIDE (test code = CO2) 27 mmol/L 22-30 N GLUCOSE (test code = GLU) 132 mg/dL 74-106 H BLOOD UREA NITROGEN (test code = BUN) 25 mg/dL 9-20 H GLOMERULAR FILTRATION RATE (test code = GFR) 93 >60 The estimated glomerular filtration rate is computed usingpatient race, age (>18), sex, and serum creatinine. If anyof the needed data elements are missing the Laboratory cannot compute an estimation of the glomerular filtration rate. CREATININE (test code = CREAT) 0.9 mg/dL 0.7-1.3 N CALCIUM (test code = CA) 8.8 mg/dL 8.4-10.2 N [id number] 06:06:00* Test Item Value Reference Range Interpretation Comments PHOSPHOROUS (test code = PHOS) 3.3 mg/dL 2.5-4.5 N [id number] 06:06:00* Test Item Value Reference Range Interpretation Comments MAGNESIUM (test code = MAG) 2.3 mg/dL 1.6-2.3 N PROTHROMBIN [id number] 05:58:00* Test Item Value Reference Range Interpretation Comments PROTHROMBIN TIME PATIENT (test code = PTP) 12.0 SECONDS 9.2-12.1 N INTERNATIONAL NORMAL RATIO (test code = INR) 1.1 The INR is to be used only for monitoring ORAL ANTICOAGULANTTHERAPY. Indication INR Value1. Prophylaxis/treatment of: Venous Thrombosis, Pulmonary Embolism 2.0 - 3.02. Prevention of systemic embolism from: Tissue heart valves 2.0 - 3.0 Acute myocardial infarction (to present systemic embolism)* 2.0 - 3.0 Valvular heart disease 2.0 - 3.0 Atrial fibrillation 2.0 - 3.03. Mechanical prosthetic valves (high risk) 2.5 - 3.5 * If oral anticoagulant therapy is elected to preventrecurrent myocardial infarction, an INR of 2.5-3.5 isrecommended, consistent with Food and Drug Administrationrecommendations. IS PATIENT ON ANTICOAGULANTS ? YESLIST ANTICOAGULANT/ANTI PLT MEDICATION: venoxTHROMBOPLASTIN TIME [id number] 05:58:00* Test Item Value Reference Range Interpretation Comments THROMBOPLASTIN TIME PARTIAL (test code = PTT) 23.6 SECONDS 23.4-37. 0 N Therapeutic Range for Heparin EFFECTIVE 11/12/12 Heparin IU/mL aPTT Seconds0.3 64.30.7 88.8 IS PATIENT ON ANTICOAGULANTS ? YESLIST ANTICOAGULANT/ANTI PLT MEDICATION: Lo venoxCBC W/AUTO [id number] 05:49:00* Test Item Value Reference Range Interpretation Comments WHITE BLOOD CELL (test code = WBC) 10.0 x10 3/uL 5.0-12.0 N RED BLOOD CELL (test code = RBC) 3.46 x10 6/uL 4.70-6.10 L HEMOGLOBIN (test code = HGB) 10.3 g/dL 14.0-18.0 L HEMATOCRIT (test code = HCT) 30.5 % 37.0-49.0 L MEAN CELL VOLUME (test code = MCV) 88 fL 80-94 N MEAN CELL HGB (test code = MCH) 29.8 pg 27-31 N MEAN CELL HGB CONCENTRATION (test code = MCHC) 33.8 g/dL 33-37 N RED CELL DISTRIBUTION WIDTH (test code = RDW) 12.3 % 11.5-15. 5 N PLATELET COUNT (test code = PLT) 368 x10 3/uL 130-400 N MEAN PLATELET VOLUME (test code = MPV) 9.3 fL 9.4-16.4 L NEUTROPHIL % (test code = NT%) 71.7 % 43-65 H IMMATURE GRANULOCYTE % (test code = IG%) 3.2 % 0.0-2.0 H LYMPHOCYTE % (test code = LY%) 13.1 % 20.5-45.5 L MONOCYTE % (test code = MO%) 6.9 % 5.5-11.7 N EOSINOPHIL % (test code = EO%) 4.7 % 0.9-2.9 H BASOPHIL % (test code = BA%) 0.4 % 0.2-1.0 N NUCLEATED RBC % (test code = NRBC%) 0.0 % 0-1.0 N NEUTROPHIL # (test code = NT#) 7.15 x10 3/uL 2.2-4.8 H IMMATURE GRANULOCYTE # (test code = IG#) 0.32 x10 3/uL 0-0.03 H LYMPHOCYTE # (test code = LY#) 1.31 x10 3/uL 1.3-2.9 N MONOCYTE # (test code = MO#) 0.69 x10 3/uL 0.3-0.8 N EOSINOPHIL # (test code = EO#) 0.47 x10 3/uL 0.0-0.2 H BASOPHIL # (test code = BA#) 0.04 x10 3/uL 0.0-0.1 N - XR CHEST 1 [id number] 17:08:00 FAX: Luis Enirque Daniel MD [phone] [place]: St: [facility] FAX: Katy Pro MD [phone] Name: LAVONNE CONTRERAS [facility] : 1960 Age/S: 57/M [address] Unit #: [id number] Loc: C.1987 [place] [address] Phys: Luis Enrique Orellana MD Acct: [id number] Dis Date: Status: ADM IN PHONE #: [phone] Exam Date: 09/15/2018 1704 FAX #: [phone] Reason: PICC LINE PALCEMENT EXAMS: CPT CODE: [id number] XR CHEST 1 V 10592 REASON FOR EXAM: PICC line placement. COMPARISON: September 14, 2018. Chest, portable single frontal view. The right-sided PICC line has is tip in the superior vena cava at the level of the right mainstem bronchus, appropriately. NG tube seen with its tip entering the stomach. The lungs are well-inflated and clear except for some minimal perihilar and right lower lung field lung markings exaggeration possibly some early pneumonia or pneumonitis.. Heart size is normal. No effusion or pneumothorax can be seen. Osseous structures appear to be intact. IMPRESSION: PICC line in good position. Continued right lower lung field densities possibly pneumonia or pneumonitis. NG tube entering the stomach . Location: U19 at 1708 Reported and signed by: Tony Morales CC: Luis Enrique Orellana MD; Katy Haines MD Technologist: TRA VELAZQUEZ Trnscrd Date/Time/By: 09/15/2018 (1708) : By: [facility] PAGE 1 Signed Report FAX: Luis Enrique Daniel MD [phone] [place]: St: ADM FAX: Katy Pro MD [phone] -------- Name: LAVONNE CONTRERAS [facility] : 1960 Age/S: 57/M [address] Unit #: [id number] Loc: C.3317 [place] [address] Phys: Luis Enrique Orellana MD Acct: [id number] Dis Date: Status: ADM IN PHONE #: [phone] Exam Date: 09/15/2018 1704 FAX #: [phone] Reason: PICC LINE PALCEMENT EXAMS: CPT CODE: [id number] XR CHEST 1 V 83930 <Continued> Orig Print D/T: S: 09/15/2018 (5062) PAGE 2 Signed Report - XR ABDOMEN 1 V 2018-09-15 13:49:00 FAX: Katy Pro MD [phone] [place]: St: ADM Name: LAVONNE BAEZA [facility] : [birth year] Age/S: 57/M [address] Unit #: [id number] Loc: C.3317 [place] [address] Phys: Katy Haines MD Acct: [id number] Dis Date: Status: ADM IN PHONE #: [phone] Exam Date: 09/15/2018 1135 FAX #: [phone] Reason: ileus/sbo EXAMS: CPT CODE: [id number] XR ABDOMEN 1 V 19106 EXAM: - XR ABDOMEN 1 V HISTORY: Ileus Location code:C3 COMPARISON: 09/03 FINDINGS: 2 views of the abdomen are provided. Enter ic tube tip projects about the fundus of the stomach. Gaseous distended l oops of small bowel in the mid to upper abdomen up to 3.4 cm is seen witho ut differential air-fluid levels. Surgical changes in the abdomen are aga in seen. No additional interval change. IMPRESSION: 1. Distended small bowel loops persist but decreased since prior exa m. at 1349 Reported and signed by: Joe Milner MD CC: Katy Haines MD Technologist: Jinny Kaur Trnscrd Date/Time/By: 09/15/2018 (5709) : By: TannaCB5 PAGE 1 Signed Report FAX: Y Katy Haines MD [phone] [place]: St: ADM --------- Name: LAVONNE CONTRERAS [facility] : 1960 Age/S: 57/M [address] Un it #: [id number] Loc: C.33[address] [place] [address] Phys: Katy Haines MD Acct: [id number] Dis Date: Status: ADM IN PH ONE #: [phone] Exam Date: 09/15/2018 1135 FAX #: [phone] Reason: ileus/sbo EXAMS: CPT CODE: [id number] XR ABDOMEN 1 V 41710 <Continued> Orig Print D/T: S: 09/15/2018 (9068) PAGE 2 Signed Report BASIC METABOLIC [id number] 09:26:00* Test Item Value Reference Range Interpretation Comments SODIUM (test code = NA) 137 mmol/L 137-145 N POTASSIUM (test code = K) 3.4 mmol/L 3.4-5.0 N CHLORIDE (test code = CL) 100 mmol/L 98-107 N CARBON DIOXIDE (test code = CO2) 30 mmol/L 22-30 N GLUCOSE (test code = GLU) 109 mg/dL 74-106 H BLOOD UREA NITROGEN (test code = BUN) 32 mg/dL 9-20 H GLOMERULAR FILTRATION RATE (test code = GFR) 82 >60 The estimated glomerular filtration rate is computed usingpatient race, age (>18), sex, and serum creatinine. If anyof the needed data elements are missing the Laboratory cannot compute an estimation of the glomerular filtration rate. CREATININE (test code = CREAT) 1.0 mg/dL 0.7-1.3 N CALCIUM (test code = CA) 8.4 mg/dL 8.4-10.2 N [id number] 09:26:00* Test Item Value Reference Range Interpretation Comments PHOSPHOROUS (test code = PHOS) 2.7 mg/dL 2.5-4.5 N [id number] 09:26:00* Test Item Value Reference Range Interpretation Comments MAGNESIUM (test code = MAG) 2.4 mg/dL 1.6-2.3 H BASIC METABOLIC [id number] 09:06:00* Test Item Value Reference Range Interpretation Comments SODIUM (test code = NA) 137 mmol/L 137-145 N POTASSIUM (test code = K) 3.4 mmol/L 3.4-5.0 N CHLORIDE (test code = CL) 100 mmol/L 98-107 N CARBON DIOXIDE (test code = CO2) 30 mmol/L 22-30 N GLUCOSE (test code = GLU) 109 mg/dL 74-106 H BLOOD UREA NITROGEN (test code = BUN) 32 mg/dL 9-20 H GLOMERULAR FILTRATION RATE (test code = GFR) 82 >60 The estimated glomerular filtration rate is computed usingpatient race, age (>18), sex, and serum creatinine. If anyof the needed data elements are missing the Laboratory cannot compute an estimation of the glomerular filtration rate. CREATININE (test code = CREAT) 1.0 mg/dL 0.7-1.3 N CALCIUM (test code = CA) 8.4 mg/dL 8.4-10.2 N [id number] 09:06:00* Test Item Value Reference Range Interpretation Comments PHOSPHOROUS (test code = PHOS) 2.7 mg/dL 2.5-4.5 N [id number] 09:06:00* Test Item Value Reference Range Interpretation Comments MAGNESIUM (test code = MAG) mg/dL 1.6-2.3 CBC W/AUTO [id number] 08:43:00* Test Item Value Reference Range Interpretation Comments WHITE BLOOD CELL (test code = WBC) 13.1 x10 3/uL 5.0-12.0 H RED BLOOD CELL (test code = RBC) 3.58 x10 6/uL 4.70-6.10 L HEMOGLOBIN (test code = HGB) 10.4 g/dL 14.0-18.0 L HEMATOCRIT (test code = HCT) 31.1 % 37.0-49.0 L MEAN CELL VOLUME (test code = MCV) 87 fL 80-94 N MEAN CELL HGB (test code = MCH) 29.1 pg 27-31 N MEAN CELL HGB CONCENTRATION (test code = MCHC) 33.4 g/dL 33-37 N RED CELL DISTRIBUTION WIDTH (test code = RDW) 12.3 % 11.5-15. 5 N PLATELET COUNT (test code = PLT) 299 x10 3/uL 130-400 N MEAN PLATELET VOLUME (test code = MPV) 9.5 fL 9.4-16.4 N NEUTROPHIL % (test code = NT%) 79.9 % 43-65 H IMMATURE GRANULOCYTE % (test code = IG%) 1.5 % 0.0-2.0 N LYMPHOCYTE % (test code = LY%) 9.7 % 20.5-45.5 L MONOCYTE % (test code = MO%) 5.1 % 5.5-11.7 L EOSINOPHIL % (test code = EO%) 3.4 % 0.9-2.9 H BASOPHIL % (test code = BA%) 0.4 % 0.2-1.0 N NUCLEATED RBC % (test code = NRBC%) 0.0 % 0-1.0 N NEUTROPHIL # (test code = NT#) 10.45 x10 3/uL 2.2-4.8 H IMMATURE GRANULOCYTE # (test code = IG#) 0.19 x10 3/uL 0-0.03 H LYMPHOCYTE # (test code = LY#) 1.27 x10 3/uL 1.3-2.9 L MONOCYTE # (test code = MO#) 0.66 x10 3/uL 0.3-0.8 N EOSINOPHIL # (test code = EO#) 0.44 x10 3/uL 0.0-0.2 H BASOPHIL # (test code = BA#) 0.05 x10 3/uL 0.0-0.1 N LACTIC [id number] 16:39:00* Test Item Value Reference Range Interpretation Comments LACTIC ACID (test code = LACT) 0.7 mmol/L 0.7-2.0 N - XR CHEST 1 [id number] 14:36:00 FAX: Katy Pro MD [phone] [place]: St: ADM Name: LAVONNE BAEZA [facility] : 10/20/[birth year] Age/S: 57/M [address] Unit #: [id number] Loc: C.3317 [place] [address] Phys: Katy Haines MD Acct: [id number] Dis Date: Status: ADM IN PHONE #: [phone] Exam Date: 09/14/2018 1220 FAX #: [phone] Reason: R/O ASPIRATION EXAMS: CPT CODE: [id number] XR CHEST 1 V 54261 LOCATION: T18 EXAM: CHEST 1 VIEW INDICATION: R/O ASPIRATION COMPARISON : Chest x-ray August 11, 2018 TECHNIQUE: AP chest radiograph. FINDINGS: NG tube tip and side port within stomach. Right perihilar airspace opacity concerning for consolidation. Left lung is clear. Heart is normal in size. Bones and peripheral soft tissues are unremarkable. IMPRESSION: Right perihilar consolidation concerning for pneumonia. at 1436 Reported and signed by: Claus Chang MD CC: Katy Haines MD Technologist: Joanie Boswell Trnscrd Date/Time/By: 09/14/2018 (2145) : By: [email or web address] PAGE 1 Signed Report FAX: Katy Pro MD [phone] [place]: St: ADM Name: LAVONNE CONTRERAS : 1960 Age/S: 57/M [address] Unit #: [id number] Loc: C.33[address] [place] [address] Phys: Katy Haines MD Acct: [id number] Dis Date: Status: ADM IN PHONE #: [phone] Exam Date: 09/14/2018 1220 FAX #: [phone] Reason: R/O ASPIRATION EXAMS: CPT CODE: [id number] XR CHEST 1 V 42588 < Continued> Orig Print D/T: S: 09/14/2018 (9204) PAGE 2 Signed Report BASIC METABOLIC [id number] 05:58:00* Test Item Value Reference Range Interpretation Comments SODIUM (test code = NA) 134 mmol/L 137-145 L POTASSIUM (test code = K) 3.9 mmol/L 3.4-5.0 N CHLORIDE (test code = CL) 97 mmol/L 98-107 L CARBON DIOXIDE (test code = CO2) 27 mmol/L 22-30 N GLUCOSE (test code = GLU) 122 mg/dL 74-106 H BLOOD UREA NITROGEN (test code = BUN) 37 mg/dL 9-20 H GLOMERULAR FILTRATION RATE (test code = GFR) 51 >60 L The estimated glomerular filtration rate is computed usingpatient race, age (>18), sex, and serum creatinine. If anyof the needed data elements are missing the Laboratory cannot compute an estimation of the glomerular filtration rate. CREATININE (test code = CREAT) 1.5 mg/dL 0.7-1.3 H CALCIUM (test code = CA) 8.7 mg/dL 8.4-10.2 N [id number] 05:58:00* Test Item Value Reference Range Interpretation Comments PHOSPHOROUS (test code = PHOS) 4.1 mg/dL 2.5-4.5 N [id number] 05:58:00* Test Item Value Reference Range Interpretation Comments MAGNESIUM (test code = MAG) 2.1 mg/dL 1.6-2.3 N CBC W/AUTO [id number] 05:33:00* Test Item Value Reference Range Interpretation Comments WHITE BLOOD CELL (test code = WBC) 20.6 x10 3/uL 5.0-12.0 H RED BLOOD CELL (test code = RBC) 3.89 x10 6/uL 4.70-6.10 L HEMOGLOBIN (test code = HGB) 11.7 g/dL 14.0-18.0 L HEMATOCRIT (test code = HCT) 33.7 % 37.0-49.0 L MEAN CELL VOLUME (test code = MCV) 87 fL 80-94 N MEAN CELL HGB (test code = MCH) 30.1 pg 27-31 N MEAN CELL HGB CONCENTRATION (test code = MCHC) 34.7 g/dL 33-37 N RED CELL DISTRIBUTION WIDTH (test code = RDW) 12.6 % 11.5-15. 5 N PLATELET COUNT (test code = PLT) 292 x10 3/uL 130-400 N MEAN PLATELET VOLUME (test code = MPV) 9.3 fL 9.4-16.4 L NEUTROPHIL % (test code = NT%) 88.1 % 43-65 H IMMATURE GRANULOCYTE % (test code = IG%) 0.8 % 0.0-2.0 N LYMPHOCYTE % (test code = LY%) 6.3 % 20.5-45.5 L MONOCYTE % (test code = MO%) 3.8 % 5.5-11.7 L EOSINOPHIL % (test code = EO%) 0.7 % 0.9-2.9 L BASOPHIL % (test code = BA%) 0.3 % 0.2-1.0 N NUCLEATED RBC % (test code = NRBC%) 0.0 % 0-1.0 N NEUTROPHIL # (test code = NT#) 18.09 x10 3/uL 2.2-4.8 H IMMATURE GRANULOCYTE # (test code = IG#) 0.17 x10 3/uL 0-0.03 H LYMPHOCYTE # (test code = LY#) 1.30 x10 3/uL 1.3-2.9 N MONOCYTE # (test code = MO#) 0.79 x10 3/uL 0.3-0.8 N EOSINOPHIL # (test code = EO#) 0.15 x10 3/uL 0.0-0.2 N BASOPHIL # (test code = BA#) 0.07 x10 3/uL 0.0-0.1 N - XR ABDOMEN [id number] 18:10:00 FAX: Luis Enrique Daniel MD [phone] [place]: St: ADM FAX: Katy Pro MD [phone] Name: LAVONNE CONTRERAS [facility] : 1960 Age/S: 57/M [address] Unit #: [id number] Loc: C.[address] [place] [address] Phys: Luis Enrique Orellana MD Acct: [id number] Dis Date: Status: ADM IN PHONE #: [phone] Exam Date: 09/13/2018 1639 FAX #: [phone] Reason: SBO EXAMS: CPT CODE: [id number] XR ABDOMEN 2V [id number] LOCATION: T18 EXAM: - XR ABDOMEN 2V INDICATION: SBO COMPARISON: Abdominal radiographs September 11, 2018 TECHNIQUE: AP radiographs of the chest and abdomen. FIN DINGS: Small bowel loops are distended measuring up to 5.7 cm. Overall de creased amount of bowel gas noted. Findings concerning for focal ileus in left upper quadrant or small bowel obstruction. NG tube within the stoma ch. Bilateral perihilar opacity of the lungs present. Anterior skin stap les of the abdomen again noted. Left SI joint screw again noted. IMPRESSION: Findings concerning for focal ileus for continued small bowel obstruction. Bilateral perihilar airspace opacity. NG tube w ithin stomach. Electronically Signed by Claus Chang MD on 9 at 1810 Reported and signed by: Claus Chang MD CC: Luis Enrique Orellana MD; Katy Haines MD Techno logist: Teri Boswell; Valentina Pascual Trnscrd Date/Time /By: 09/13/2018 (1809) : By: [email or web address] PAGE 1 Signed Report FAX: Luis Enrique Daniel MD [phone] [place]: St: ADM FAX: Katy Pro MD ---- Name: LAVONNE CONTRERAS [facility] : 1960 Age/S: 57/M [address] Unit #: [id number] Loc: C.33[address] [place] [address] Phys: Luis Enrique Orellana MD Acct: [id number] Dis Date: Status: ADM IN PHONE # : [phone] Exam Date: 09/13/2018 1639 FAX #: Reason: SBO EXAMS : CPT CODE: [id number] XR ABDO MEN 2V [id number] <Continued> Orig Print D/T: S: 09/13/2018 (1812) PAGE 2 Signed Report BASIC METABOLIC [id number] 08:07:00* Test Item Value Reference Range Interpretation Comments SODIUM (test code = NA) 136 mmol/L 137-145 L POTASSIUM (test code = K) 3.2 mmol/L 3.4-5.0 L CHLORIDE (test code = CL) 95 mmol/L 98-107 L CARBON DIOXIDE (test code = CO2) 31 mmol/L 22-30 H GLUCOSE (test code = GLU) 99 mg/dL 74-106 N BLOOD UREA NITROGEN (test code = BUN) 17 mg/dL 9-20 N GLOMERULAR FILTRATION RATE (test code = GFR) 106 >60 The estimated glomerular filtration rate is computed usingpatient race, age (>18), sex, and serum creatinine. If anyof the needed data elements are missing the Laboratory cannot compute an estimation of the glomerular filtration rate. CREATININE (test code = CREAT) 0.8 mg/dL 0.7-1.3 N CALCIUM (test code = CA) 9.0 mg/dL 8.4-10.2 N [id number] 08:07:00* Test Item Value Reference Range Interpretation Comments PHOSPHOROUS (test code = PHOS) 4.6 mg/dL 2.5-4.5 H [id number] 08:07:00* Test Item Value Reference Range Interpretation Comments TRIGLYCERIDES (test code = TRIG) 314 mg/dL TRIGLYCERIDES REFERENCE RANGE:Normal: <150 mg/dLBorderline High: 150-199 mg/dLHigh: 200-499 mg/dLVery High: >=500 mg/dL [id number] 08:07:00* Test Item Value Reference Range Interpretation Comments MAGNESIUM (test code = MAG) 2.2 mg/dL 1.6-2.3 N BASIC METABOLIC [id number] 08:06:00* Test Item Value Reference Range Interpretation Comments SODIUM (test code = NA) 136 mmol/L 137-145 L POTASSIUM (test code = K) 3.2 mmol/L 3.4-5.0 L CHLORIDE (test code = CL) 95 mmol/L 98-107 L CARBON DIOXIDE (test code = CO2) 31 mmol/L 22-30 H GLUCOSE (test code = GLU) 99 mg/dL 74-106 N BLOOD UREA NITROGEN (test code = BUN) 17 mg/dL 9-20 N GLOMERULAR FILTRATION RATE (test code = GFR) 106 >60 The estimated glomerular filtration rate is computed usingpatient race, age (>18), sex, and serum creatinine. If anyof the needed data elements are missing the Laboratory cannot compute an estimation of the glomerular filtration rate. CREATININE (test code = CREAT) 0.8 mg/dL 0.7-1.3 N CALCIUM (test code = CA) 9.0 mg/dL 8.4-10.2 N [id number] 08:06:00* Test Item Value Reference Range Interpretation Comments PHOSPHOROUS (test code = PHOS) mg/dL 2.5-4.5 [id number] 08:06:00* Test Item Value Reference Range Interpretation Comments TRIGLYCERIDES (test code = TRIG) mg/dL [id number] 08:06:00* Test Item Value Reference Range Interpretation Comments MAGNESIUM (test code = MAG) mg/dL 1.6-2.3 PROTHROMBIN [id number] 07:54:00* Test Item Value Reference Range Interpretation Comments PROTHROMBIN TIME PATIENT (test code = PTP) 11.9 SECONDS 9.2-12.1 N INTERNATIONAL NORMAL RATIO (test code = INR) 1.1 The INR is to be used only for monitoring ORAL ANTICOAGULANTTHERAPY. Indication INR Value1. Prophylaxis/treatment of: Venous Thrombosis, Pulmonary Embolism 2.0 - 3.02. Prevention of systemic embolism from: Tissue heart valves 2.0 - 3.0 Acute myocardial infarction (to present systemic embolism)* 2.0 - 3.0 Valvular heart disease 2.0 - 3.0 Atrial fibrillation 2.0 - 3.03. Mechanical prosthetic valves (high risk) 2.5 - 3.5 * If oral anticoagulant therapy is elected to preventrecurrent myocardial infarction, an INR of 2.5-3.5 isrecommended, consistent with Food and Drug Administrationrecommendations. IS PATIENT ON ANTICOAGULANTS ? NOCBC W/AUTO [id number] 07:44:00* Test Item Value Reference Range Interpretation Comments WHITE BLOOD CELL (test code = WBC) 8.7 x10 3/uL 5.0-12.0 N RED BLOOD CELL (test code = RBC) 4.06 x10 6/uL 4.70-6.10 L HEMOGLOBIN (test code = HGB) 12.2 g/dL 14.0-18.0 L HEMATOCRIT (test code = HCT) 35.5 % 37.0-49.0 L MEAN CELL VOLUME (test code = MCV) 87 fL 80-94 N MEAN CELL HGB (test code = MCH) 30.0 pg 27-31 N MEAN CELL HGB CONCENTRATION (test code = MCHC) 34.4 g/dL 33-37 N RED CELL DISTRIBUTION WIDTH (test code = RDW) 12.5 % 11.5-15. 5 N PLATELET COUNT (test code = PLT) 259 x10 3/uL 130-400 N MEAN PLATELET VOLUME (test code = MPV) 9.6 fL 9.4-16.4 N NEUTROPHIL % (test code = NT%) 61.3 % 43-65 N IMMATURE GRANULOCYTE % (test code = IG%) 3.7 % 0.0-2.0 H LYMPHOCYTE % (test code = LY%) 20.1 % 20.5-45.5 L MONOCYTE % (test code = MO%) 10.1 % 5.5-11.7 N EOSINOPHIL % (test code = EO%) 4.2 % 0.9-2.9 H BASOPHIL % (test code = BA%) 0.6 % 0.2-1.0 N NUCLEATED RBC % (test code = NRBC%) 0.0 % 0-1.0 N NEUTROPHIL # (test code = NT#) 5.31 x10 3/uL 2.2-4.8 H IMMATURE GRANULOCYTE # (test code = IG#) 0.32 x10 3/uL 0-0.03 H LYMPHOCYTE # (test code = LY#) 1.74 x10 3/uL 1.3-2.9 N MONOCYTE # (test code = MO#) 0.87 x10 3/uL 0.3-0.8 H EOSINOPHIL # (test code = EO#) 0.36 x10 3/uL 0.0-0.2 H BASOPHIL # (test code = BA#) 0.05 x10 3/uL 0.0-0.1 N [id number] 16:05:00* Test Item Value Reference Range Interpretation Comments POTASSIUM (test code = K) 3.5 mmol/L 3.4-5.0 N BASIC METABOLIC [id number] 06:23:00* Test Item Value Reference Range Interpretation Comments SODIUM (test code = NA) 137 mmol/L 137-145 N POTASSIUM (test code = K) 3.1 mmol/L 3.4-5.0 L CHLORIDE (test code = CL) 97 mmol/L 98-107 L CARBON DIOXIDE (test code = CO2) 31 mmol/L 22-30 H GLUCOSE (test code = GLU) 115 mg/dL 74-106 H BLOOD UREA NITROGEN (test code = BUN) 19 mg/dL 9-20 N GLOMERULAR FILTRATION RATE (test code = GFR) 124 >60 The estimated glomerular filtration rate is computed usingpatient race, age (>18), sex, and serum creatinine. If anyof the needed data elements are missing the Laboratory cannot compute an estimation of the glomerular filtration rate. CREATININE (test code = CREAT) 0.7 mg/dL 0.7-1.3 N CALCIUM (test code = CA) 8.9 mg/dL 8.4-10.2 N [id number] 06:23:00* Test Item Value Reference Range Interpretation Comments PHOSPHOROUS (test code = PHOS) 4.0 mg/dL 2.5-4.5 N [id number] 06:23:00* Test Item Value Reference Range Interpretation Comments MAGNESIUM (test code = MAG) 2.2 mg/dL 1.6-2.3 N BASIC METABOLIC [id number] 06:15:00* Test Item Value Reference Range Interpretation Comments SODIUM (test code = NA) 137 mmol/L 137-145 N POTASSIUM (test code = K) 3.1 mmol/L 3.4-5.0 L CHLORIDE (test code = CL) 97 mmol/L 98-107 L CARBON DIOXIDE (test code = CO2) 31 mmol/L 22-30 H GLUCOSE (test code = GLU) 115 mg/dL 74-106 H BLOOD UREA NITROGEN (test code = BUN) 19 mg/dL 9-20 N GLOMERULAR FILTRATION RATE (test code = GFR) 124 >60 The estimated glomerular filtration rate is computed usingpatient race, age (>18), sex, and serum creatinine. If anyof the needed data elements are missing the Laboratory cannot compute an estimation of the glomerular filtration rate. CREATININE (test code = CREAT) 0.7 mg/dL 0.7-1.3 N CALCIUM (test code = CA) 8.9 mg/dL 8.4-10.2 N [id number] 06:15:00* Test Item Value Reference Range Interpretation Comments PHOSPHOROUS (test code = PHOS) mg/dL 2.5-4.5 [id number] 06:15:00* Test Item Value Reference Range Interpretation Comments MAGNESIUM (test code = MAG) mg/dL 1.6-2.3 CBC W/AUTO [id number] 05:47:00* Test Item Value Reference Range Interpretation Comments WHITE BLOOD CELL (test code = WBC) 6.4 x10 3/uL 5.0-12.0 N RED BLOOD CELL (test code = RBC) 4.06 x10 6/uL 4.70-6.10 L HEMOGLOBIN (test code = HGB) 12.1 g/dL 14.0-18.0 L HEMATOCRIT (test code = HCT) 36.2 % 37.0-49.0 L MEAN CELL VOLUME (test code = MCV) 89 fL 80-94 N MEAN CELL HGB (test code = MCH) 29.8 pg 27-31 N MEAN CELL HGB CONCENTRATION (test code = MCHC) 33.4 g/dL 33-37 N RED CELL DISTRIBUTION WIDTH (test code = RDW) 12.4 % 11.5-15. 5 N PLATELET COUNT (test code = PLT) 191 x10 3/uL 130-400 N MEAN PLATELET VOLUME (test code = MPV) 9.3 fL 9.4-16.4 L NEUTROPHIL % (test code = NT%) 52.1 % 43-65 N IMMATURE GRANULOCYTE % (test code = IG%) 4.2 % 0.0-2.0 H LYMPHOCYTE % (test code = LY%) 25.2 % 20.5-45.5 N MONOCYTE % (test code = MO%) 13.4 % 5.5-11.7 H EOSINOPHIL % (test code = EO%) 4.2 % 0.9-2.9 H BASOPHIL % (test code = BA%) 0.9 % 0.2-1.0 N NUCLEATED RBC % (test code = NRBC%) 0.0 % 0-1.0 N NEUTROPHIL # (test code = NT#) 3.36 x10 3/uL 2.2-4.8 N IMMATURE GRANULOCYTE # (test code = IG#) 0.27 x10 3/uL 0-0.03 H LYMPHOCYTE # (test code = LY#) 1.62 x10 3/uL 1.3-2.9 N MONOCYTE # (test code = MO#) 0.86 x10 3/uL 0.3-0.8 H EOSINOPHIL # (test code = EO#) 0.27 x10 3/uL 0.0-0.2 H BASOPHIL # (test code = BA#) 0.06 x10 3/uL 0.0-0.1 N BASIC METABOLIC [id number] 08:44:00* Test Item Value Reference Range Interpretation Comments SODIUM (test code = NA) 134 mmol/L 137-145 L POTASSIUM (test code = K) 3.2 mmol/L 3.4-5.0 L CHLORIDE (test code = CL) 97 mmol/L 98-107 L CARBON DIOXIDE (test code = CO2) 27 mmol/L 22-30 N GLUCOSE (test code = GLU) 138 mg/dL 74-106 H BLOOD UREA NITROGEN (test code = BUN) 14 mg/dL 9-20 N GLOMERULAR FILTRATION RATE (test code = GFR) 124 >60 The estimated glomerular filtration rate is computed usingpatient race, age (>18), sex, and serum creatinine. If anyof the needed data elements are missing the Laboratory cannot compute an estimation of the glomerular filtration rate. CREATININE (test code = CREAT) 0.7 mg/dL 0.7-1.3 N CALCIUM (test code = CA) 8.7 mg/dL 8.4-10.2 N [id number] 08:44:00* Test Item Value Reference Range Interpretation Comments PHOSPHOROUS (test code = PHOS) 3.0 mg/dL 2.5-4.5 N [id number] 08:44:00* Test Item Value Reference Range Interpretation Comments TRIGLYCERIDES (test code = TRIG) 320 mg/dL TRIGLYCERIDES REFERENCE RANGE:Normal: <150 mg/dLBorderline High: 150-199 mg/dLHigh: 200-499 mg/dLVery High: >=500 mg/dL [id number] 08:44:00* Test Item Value Reference Range Interpretation Comments MAGNESIUM (test code = MAG) 1.9 mg/dL 1.6-2.3 N BASIC METABOLIC [id number] 08:43:00* Test Item Value Reference Range Interpretation Comments SODIUM (test code = NA) 134 mmol/L 137-145 L POTASSIUM (test code = K) 3.2 mmol/L 3.4-5.0 L CHLORIDE (test code = CL) 97 mmol/L 98-107 L CARBON DIOXIDE (test code = CO2) 27 mmol/L 22-30 N GLUCOSE (test code = GLU) 138 mg/dL 74-106 H BLOOD UREA NITROGEN (test code = BUN) 14 mg/dL 9-20 N GLOMERULAR FILTRATION RATE (test code = GFR) 124 >60 The estimated glomerular filtration rate is computed usingpatient race, age (>18), sex, and serum creatinine. If anyof the needed data elements are missing the Laboratory cannot compute an estimation of the glomerular filtration rate. CREATININE (test code = CREAT) 0.7 mg/dL 0.7-1.3 N CALCIUM (test code = CA) 8.7 mg/dL 8.4-10.2 N [id number] 08:43:00* Test Item Value Reference Range Interpretation Comments PHOSPHOROUS (test code = PHOS) mg/dL 2.5-4.5 [id number] 08:43:00* Test Item Value Reference Range Interpretation Comments TRIGLYCERIDES (test code = TRIG) mg/dL [id number] 08:43:00* Test Item Value Reference Range Interpretation Comments MAGNESIUM (test code = MAG) mg/dL 1.6-2.3 PROTHROMBIN [id number] 08:39:00* Test Item Value Reference Range Interpretation Comments PROTHROMBIN TIME PATIENT (test code = PTP) 12.0 SECONDS 9.2-12.1 N INTERNATIONAL NORMAL RATIO (test code = INR) 1.1 The INR is to be used only for monitoring ORAL ANTICOAGULANTTHERAPY. Indication INR Value1. Prophylaxis/treatment of: Venous Thrombosis, Pulmonary Embolism 2.0 - 3.02. Prevention of systemic embolism from: Tissue heart valves 2.0 - 3.0 Acute myocardial infarction (to present systemic embolism)* 2.0 - 3.0 Valvular heart disease 2.0 - 3.0 Atrial fibrillation 2.0 - 3.03. Mechanical prosthetic valves (high risk) 2.5 - 3.5 * If oral anticoagulant therapy is elected to preventrecurrent myocardial infarction, an INR of 2.5-3.5 isrecommended, consistent with Food and Drug Administrationrecommendations. IS PATIENT ON ANTICOAGULANTS ? NOCBC W/AUTO [id number] 08:33:00* Test Item Value Reference Range Interpretation Comments WHITE BLOOD CELL (test code = WBC) 5.2 x10 3/uL 5.0-12.0 N RED BLOOD CELL (test code = RBC) 4.08 x10 6/uL 4.70-6.10 L HEMOGLOBIN (test code = HGB) 12.1 g/dL 14.0-18.0 L HEMATOCRIT (test code = HCT) 35.0 % 37.0-49.0 L MEAN CELL VOLUME (test code = MCV) 86 fL 80-94 N MEAN CELL HGB (test code = MCH) 29.7 pg 27-31 N MEAN CELL HGB CONCENTRATION (test code = MCHC) 34.6 g/dL 33-37 N RED CELL DISTRIBUTION WIDTH (test code = RDW) 12.4 % 11.5-15. 5 N PLATELET COUNT (test code = PLT) 203 x10 3/uL 130-400 N MEAN PLATELET VOLUME (test code = MPV) 9.1 fL 9.4-16.4 L NEUTROPHIL % (test code = NT%) 64.4 % 43-65 N IMMATURE GRANULOCYTE % (test code = IG%) 4.0 % 0.0-2.0 H LYMPHOCYTE % (test code = LY%) 14.8 % 20.5-45.5 L MONOCYTE % (test code = MO%) 14.1 % 5.5-11.7 H EOSINOPHIL % (test code = EO%) 2.3 % 0.9-2.9 N BASOPHIL % (test code = BA%) 0.4 % 0.2-1.0 N NUCLEATED RBC % (test code = NRBC%) 0.0 % 0-1.0 N NEUTROPHIL # (test code = NT#) 3.34 x10 3/uL 2.2-4.8 N IMMATURE GRANULOCYTE # (test code = IG#) 0.21 x10 3/uL 0-0.03 H LYMPHOCYTE # (test code = LY#) 0.77 x10 3/uL 1.3-2.9 L MONOCYTE # (test code = MO#) 0.73 x10 3/uL 0.3-0.8 N EOSINOPHIL # (test code = EO#) 0.12 x10 3/uL 0.0-0.2 N BASOPHIL # (test code = BA#) 0.02 x10 3/uL 0.0-0.1 N - XR ABDOMEN [id number] 06:12:00 FAX: Luis Enrique Daniel MD [phone] [place]: St: [facility] FAX: Katy Pro MD [phone] Name: LAVONNE CONTRERAS [facility] : 1960 Age/S: 57/M [address] Unit #: [id number] Loc: [address] [place] [address] Phys: Luis Enrique Orellana MD Acct: [id number] Dis Date: Status: ADM IN PHONE #: [phone] Exam Date: 09/11/2018 0450 FAX #: [phone] Reason: NAUSEA AND VOMITING EXAMS: CPT CODE: [id number] XR ABDOMEN 2V 66316 AFTER HOURS SERVICE ON: 09/11/2018 6:11 AM Abdomen, 3 View Location Code M12 History: NAUSEA AND VOMITING Findings: Slightly decreasing small bowel dilatation is seen in the central abdomen. There are also decreasing air fluid le vels on the upright view. There is no free air. There is an NGT in the s tomach but the side port remains at the gastroesophageal junction. Cholec ystectomy clips are in place. Impression: Decreasing small bowel dilatation. NGT side-port at the gas troesophageal junction. 5 to 10 cm advancement recommended. at 0612 Reported and signed by: Erika Christensen MD CC: Luis Enrique Orellana MD; Katy Haines MD Technologist: RT Armand (R) Trnscrd Date/Time/By: 09/11/2018 (0612) : By: [email or web address] PAGE 1 Signed Report FAX: Luis Enrique Daniel MD [phone] [place]: St: ADM FAX: Katy Pro MD [phone] Name: Opal CONTRERAS [facility] : 1960 Age/ S: 57/M [address] Unit #: [id number] Loc: C [address] [place] [address] Phys: Luis Enrique Orellana MD Acct: [id number] Dis Date: Status: ADM IN PHONE #: [phone] Exam Date: 09/11/2018 0450 FAX #: [phone] Reason: NAUSEA AND VOMITING EXAMS: CPT CODE: [id number] XR ABDOMEN 2V 00912 <Continued> Orig Print D/T: S: 09/11/2018 (0616) PAGE 2 Signed Report APPENDIX,OTHER THAN [id number] 20:01:00 RUN DATE: 09/09/18 [facility] PAGE 1 RUN TIME: 2001 Specimen Inqui ry RUN USER: INTERFACE PATIENT: LAVONNE CONTRERAS ACCT #: [id number] LOC: MATEUS U #: [id number] AGE/SX: 57/M ROOM: [facility] RE09/02/18REG DR: Jayde Lee DO : 62 BED: A DIS: STATUS: ADM IN TLOC: SPEC #: [id number] RECD: 09/05/18 STATUS: VICK JOHNSON #: [id number] SORIN: 09/05/[address] [facility] [address]: Alessandro Galindo ENTERED: 09/05/18 SP TYPE: APPENDIX OTHR DR: Nadya cohen or Family Physician Luis Enrique Orellana MD,Nikos Jenkins MD, MDORDERED: PATHGM3, # OF BLOCKS/2, # OF SLIDES/2 TISSUES: A. APPENDIX, NOS CLIN ICAL HISTORY INCIDENTAL APPENDECTOMY. FINAL MICROSCOPIC DIAGNOSIS VERMIF ORM APPENDIX, INCIDENTAL APPENDECTOMY: VERMIFORM APPENDIX WITH NO PATHOLOGI C CHANGE. CPT: 03814 GROSS DESCRIPTION The specimen is received in formalin labeled with the patient's name, number and "appendix". It consis ts of the vermiform appendix, 6.2 cm in length, 0.5 cm in diameter with attach ed 0.9-1.8 cm wide rim of mesentery. The serosa is pale red, smooth. The wal l measures 0.2-0.3 cm in thickness. The lumen is patent. Representatively soares bmitted in A1 and A2. VT/tb Signed SIGNATURE ON FILE Sheridan Ness MD 09/09/182000 END OF REPORT - XR ABDOMEN [id number] 09:19:00 FAX: Luis Enrique Daniel MD [phone] [place]: [facility]: ADM Name: LAVONNE BAEZA [facility] : [birth year] 63 Age/S: 57/M [address] Unit #: [id number] Loc: [address] [place] [address] Phys: Luis Enrique Orellana MD Acct: [id number] Dis Date: Status: ADM IN PHONE #: [phone] Exam Date: 09/09/2018906 FAX #: [phone] Reason: COMPARE TO LAST SCAN EXAMS: CPT CODE: [id number] XR ABDOMEN 2V 91400 EXAM: - XR ABDOMEN 2V HISTORY: Partial small bowel obstruction Location code:C3 COMPARISON: 09/07/2018 and 08/13/2018 FINDINGS: 3 views of the abdomen are provided. Enteric tube tip projects about the body of the stomach. There is distended loops of small bowel up to 4.5 cm with air- fluid levels. This is progressed since prior radiograph. 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 Midline skin arik are again seen. No additional int erval change. IMPRESSION: 1. Progressive small bowel di stention with air-fluid levels concerning for obstruction. at 0919 Reported and sig tuan by: Joe Milner MD CC: Luis Enrique Orellana MD Technologist: Krupa Menard Trnscrd Date/Time/By: 09/09/2018 (0919) : By: [email or web address] PAGE 1 Signed Report FAX: LuisE nrique Daniel MD [phone] [place]: St: ADM------- Name: LAVONNE CONTRERAS [birth year] Age/S: 57/M [address] Unit #: [id number] Loc: [address] [place] [address] Phys: Luis Enrique Orellana MD Acct: [id number] Dis Date: Status: ADM IN PHONE #: [phone] Exam Date: 09/09/2018906 FAX #: [phone] Reason: COMPARE TO LAST SCAN EXAMS: CPT CODE: [id number] XR ABDOMEN 2V 89389 <Continued> Orig Print D/T: S: 09/09/2018 (0922) PAGE 2 Signed Report COMPREHENSIVE METABOLIC [id number] 06:54:00* Test Item Value Reference Range Interpretation Comments SODIUM (test code = NA) 136 mmol/L 137-145 L POTASSIUM (test code = K) 3.3 mmol/L 3.4-5.0 L CHLORIDE (test code = CL) 101 mmol/L 98-107 N CARBON DIOXIDE (test code = CO2) 24 mmol/L 22-30 N GLUCOSE (test code = GLU) 130 mg/dL 74-106 H BLOOD UREA NITROGEN (test code = BUN) 12 mg/dL 9-20 N GLOMERULAR FILTRATION RATE (test code = GFR) 106 >60 The estimated glomerular filtration rate is computed usingpatient race, age (>18), sex, and serum creatinine. If anyof the needed data elements are missing the Laboratory cannot compute an estimation of the glomerular filtration rate. CREATININE (test code = CREAT) 0.8 mg/dL 0.7-1.3 N TOTAL PROTEIN (test code = PROT) 6.2 g/dL 6.3-8.2 L ALBUMIN (test code = ALB) 3.3 g/dL 3.5-5.0 L CALCIUM (test code = CA) 9.1 mg/dL 8.4-10.2 N BILIRUBIN TOTAL (test code = BILT) 1.3 mg/dL 0.2-1.3 N BILIRUBIN CONJUGATED (test code = BILCON) 0 mg/dL 0-0.3 N ~~~~~~~~~~~~~~~~~~~~~~~~~~~~~~~~~~~~~~~~~~~~~~~~~~~~~~~~~~~~CONJUGATED BILIRUBIN IS THE REPLACEMENT ASSAY FOR DIRECTBILIRUBIN.~~~~~~~~~~~~~~~~~~~~~~~~~~~~~~~~~~~~~~~~~~~~~~~~~~~~~~~~~~~~ BILIRUBIN UNCONJUGATED (test code = BILUNC) 0.7 mg/dL 0-1.1 N SGOT/AST (test code = AST) 16 U/L 15-46 N SGPT/ALT (test code = ALT) 55 U/L 13-69 N ALKALINE PHOSPHATASE (test code = ALKP) 141 U/L 38-126 H [id number] 06:54:00* Test Item Value Reference Range Interpretation Comments MAGNESIUM (test code = MAG) 1.9 mg/dL 1.6-2.3 N CBC W/AUTO [id number] 06:23:00* Test Item Value Reference Range Interpretation Comments WHITE BLOOD CELL (test code = WBC) 5.9 x10 3/uL 5.0-12.0 N RED BLOOD CELL (test code = RBC) 4.18 x10 6/uL 4.70-6.10 L HEMOGLOBIN (test code = HGB) 12.4 g/dL 14.0-18.0 L HEMATOCRIT (test code = HCT) 36.8 % 37.0-49.0 L MEAN CELL VOLUME (test code = MCV) 88 fL 80-94 N MEAN CELL HGB (test code = MCH) 29.7 pg 27-31 N MEAN CELL HGB CONCENTRATION (test code = MCHC) 33.7 g/dL 33-37 N RED CELL DISTRIBUTION WIDTH (test code = RDW) 13.0 % 11.5-15. 5 N PLATELET COUNT (test code = PLT) 168 x10 3/uL 130-400 N MEAN PLATELET VOLUME (test code = MPV) 9.4 fL 9.4-16.4 N NEUTROPHIL % (test code = NT%) 78.5 % 43-65 H IMMATURE GRANULOCYTE % (test code = IG%) 1.5 % 0.0-2.0 N LYMPHOCYTE % (test code = LY%) 7.9 % 20.5-45.5 L MONOCYTE % (test code = MO%) 8.6 % 5.5-11.7 N EOSINOPHIL % (test code = EO%) 3.0 % 0.9-2.9 H BASOPHIL % (test code = BA%) 0.5 % 0.2-1.0 N NUCLEATED RBC % (test code = NRBC%) 0.0 % 0-1.0 N NEUTROPHIL # (test code = NT#) 4.65 x10 3/uL 2.2-4.8 N IMMATURE GRANULOCYTE # (test code = IG#) 0.09 x10 3/uL 0-0.03 H LYMPHOCYTE # (test code = LY#) 0.47 x10 3/uL 1.3-2.9 L MONOCYTE # (test code = MO#) 0.51 x10 3/uL 0.3-0.8 N EOSINOPHIL # (test code = EO#) 0.18 x10 3/uL 0.0-0.2 N BASOPHIL # (test code = BA#) 0.03 x10 3/uL 0.0-0.1 N COMPREHENSIVE METABOLIC [id number] 08:06:00* Test Item Value Reference Range Interpretation Comments SODIUM (test code = NA) 141 mmol/L 137-145 N POTASSIUM (test code = K) 3.5 mmol/L 3.4-5.0 N CHLORIDE (test code = CL) 108 mmol/L 98-107 H CARBON DIOXIDE (test code = CO2) 24 mmol/L 22-30 N GLUCOSE (test code = GLU) 78 mg/dL 74-106 N BLOOD UREA NITROGEN (test code = BUN) 20 mg/dL 9-20 N GLOMERULAR FILTRATION RATE (test code = GFR) 93 >60 The estimated glomerular filtration rate is computed usingpatient race, age (>18), sex, and serum creatinine. If anyof the needed data elements are missing the Laboratory cannot compute an estimation of the glomerular filtration rate. CREATININE (test code = CREAT) 0.9 mg/dL 0.7-1.3 N TOTAL PROTEIN (test code = PROT) 6.1 g/dL 6.3-8.2 L ALBUMIN (test code = ALB) 3.2 g/dL 3.5-5.0 L CALCIUM (test code = CA) 8.9 mg/dL 8.4-10.2 N BILIRUBIN TOTAL (test code = BILT) 1.4 mg/dL 0.2-1.3 H BILIRUBIN CONJUGATED (test code = BILCON) 0 mg/dL 0-0.3 N ~~~~~~~~~~~~~~~~~~~~~~~~~~~~~~~~~~~~~~~~~~~~~~~~~~~~~~~~~~~~CONJUGATED BILIRUBIN IS THE REPLACEMENT ASSAY FOR DIRECTBILIRUBIN.~~~~~~~~~~~~~~~~~~~~~~~~~~~~~~~~~~~~~~~~~~~~~~~~~~~~~~~~~~~~ BILIRUBIN UNCONJUGATED (test code = BILUNC) 0.5 mg/dL 0-1.1 N SGOT/AST (test code = AST) 17 U/L 15-46 N SGPT/ALT (test code = ALT) 68 U/L 13-69 N ALKALINE PHOSPHATASE (test code = ALKP) 135 U/L 38-126 H [id number] 08:06:00* Test Item Value Reference Range Interpretation Comments PHOSPHOROUS (test code = PHOS) 2.2 mg/dL 2.5-4.5 L [id number] 08:06:00* Test Item Value Reference Range Interpretation Comments MAGNESIUM (test code = MAG) 2.2 mg/dL 1.6-2.3 N CBC W/AUTO [id number] 07:28:00* Test Item Value Reference Range Interpretation Comments WHITE BLOOD CELL (test code = WBC) 7.8 x10 3/uL 5.0-12.0 N RED BLOOD CELL (test code = RBC) 3.89 x10 6/uL 4.70-6.10 L HEMOGLOBIN (test code = HGB) 11.6 g/dL 14.0-18.0 L HEMATOCRIT (test code = HCT) 35.0 % 37.0-49.0 L MEAN CELL VOLUME (test code = MCV) 90 fL 80-94 N MEAN CELL HGB (test code = MCH) 29.8 pg 27-31 N MEAN CELL HGB CONCENTRATION (test code = MCHC) 33.1 g/dL 33-37 N RED CELL DISTRIBUTION WIDTH (test code = RDW) 13.1 % 11.5-15. 5 N PLATELET COUNT (test code = PLT) 149 x10 3/uL 130-400 N MEAN PLATELET VOLUME (test code = MPV) 9.8 fL 9.4-16.4 N NEUTROPHIL % (test code = NT%) 79.6 % 43-65 H IMMATURE GRANULOCYTE % (test code = IG%) 1.0 % 0.0-2.0 N LYMPHOCYTE % (test code = LY%) 9.2 % 20.5-45.5 L MONOCYTE % (test code = MO%) 7.1 % 5.5-11.7 N EOSINOPHIL % (test code = EO%) 2.7 % 0.9-2.9 N BASOPHIL % (test code = BA%) 0.4 % 0.2-1.0 N NUCLEATED RBC % (test code = NRBC%) 0.0 % 0-1.0 N NEUTROPHIL # (test code = NT#) 6.21 x10 3/uL 2.2-4.8 H IMMATURE GRANULOCYTE # (test code = IG#) 0.08 x10 3/uL 0-0.03 H LYMPHOCYTE # (test code = LY#) 0.72 x10 3/uL 1.3-2.9 L MONOCYTE # (test code = MO#) 0.55 x10 3/uL 0.3-0.8 N EOSINOPHIL # (test code = EO#) 0.21 x10 3/uL 0.0-0.2 H BASOPHIL # (test code = BA#) 0.03 x10 3/uL 0.0-0.1 N - XR ABDOMEN [id number] 23:38:00 FAX: Luis Enrique Daniel MD [phone] [place]: St: [facility] FAX: Suresh Dinero Name: LAVONNE CONTRERAS : 1960 Age/S: 57/M [address] Unit #: [id number] Loc: C.[address] [place] [address] Phys: Luis Enrique Orellana MD Acct: [id number] Dis Date: Status: ADM IN PHONE #: [phone] Exam Date: 09/07/20180 FAX #: [phone] Reason: f/u ileus. s/p bowel resection for sbo EXAMS: CPT CODE: [id number] XR ABDOMEN 2V [id number] HISTORY: Follow-up Location: C3 COMPARISON: 09/03/2018 FINDINGS: Nasogastric tube is noted with tip overlying the stomach. There is scattered gas throughout the colon. There have been interval postoperative changes of the ventral skin arik noted. Previously seen dilated loops of small bowel have improved. IMPRESSION: 1. Decrease in small bowel distention. 2. Nasogastric tube with tip overlying the stomach. Electron ically Signed by Tony Islas MD on 09/07/2018 at 3244 Re ported and signed by: Tony Islas MD CC: Luis Enrique Orellana MD ; Suresh Gonzalez MD Technologist: Joanie Boswell Trnn[facility]rd Date/Time/By: 09/07/2018 (6769) : By: Rafia [id number] PAGE 1 Signed Report FAX: Luis Enrique Daniel MD [phone] [place]: St: [facility] FAX: Suresh Dinero Name: LAVONNE CONTRERAS : 1960 Age/S: 57/M [address] Unit #: [id number] Loc: C.[address] [place] [address] Phys: Luis Enrique Orellana MD Acct: [id number] Dis Date: Status: ADM IN PHONE #: [phone] Exam Date: 09/07/20182249 FAX #: [phone] Reason: f/u ileus. s/p bowel resection for sbo EXAMS: CPT CODE: [id number] XR ABDOMEN 2V 12030 <Continued> Orig Print D/T: S: 09/07/2018 (4452) PAGE 2 Signed Report ACUTE HEPATITIS [id number] 18:00:00* Test Item Value Reference Range Interpretation Comments HEP A AB TOTAL ONLY (test code = HAVAB) NEGATIVE NEGATIVE ~~~~~~~~~~~~~~~~~~~~~~~~~~~~~~~~~~~~~~~~~~~~~~~~~~~~~~~~~~~~THIS TEST DETECTS TOTAL ANTIBODIES TO HEPATITIS A, AND DOESNOT DIFFERENTIATE BETWEEN IGG AND IGM.~~~~~~~~~~~~~~~~~~~~~~~~~~~~~~~~~~~~~~~~~~~~~~~~~~~~~~~~~~~~ HEP A AB IGM QUAL (test code = HAVMAB) NEGATIVE NEGATIVE AG HEPATITIS B SURFACE (test code = HBSAG) NEGATIVE NEGATIVE HEP B CORE AB IGM QL (test code = HBCMAB) NEGATIVE NEGATIVE AB HEPATITIS C (test code = HCVAB) NEGATIVE NEGATIVE ACUTE HEPATITIS [id number] 17:17:00* Test Item Value Reference Range Interpretation Comments HEP A AB TOTAL ONLY (test code = HAVAB) NEGATIVE HEP A AB IGM QUAL (test code = HAVMAB) NEGATIVE NEGATIVE AG HEPATITIS B SURFACE (test code = HBSAG) NEGATIVE NEGATIVE HEP B CORE AB IGM QL (test code = HBCMAB) NEGATIVE NEGATIVE AB HEPATITIS C (test code = HCVAB) NEGATIVE ACUTE HEPATITIS [id number] 17:07:00* Test Item Value Reference Range Interpretation Comments HEP A AB TOTAL ONLY (test code = HAVAB) NEGATIVE HEP A AB IGM QUAL (test code = HAVMAB) NEGATIVE AG HEPATITIS B SURFACE (test code = HBSAG) NEGATIVE NEGATIVE HEP B CORE AB IGM QL (test code = HBCMAB) NEGATIVE AB HEPATITIS C (test code = HCVAB) NEGATIVE - US ABDOMEN [id number] 10:37:00 FAX: Alessandro Latham MD [phone] [place]: St: ADM FAX: Katy Pro MD [phone] Name: DIANELAVONNE [facility] : 1960 Age/S: 57/M [address] Unit #: [id number] Loc: C.3317 [place] [address] Phys: Katy Haines MD Acct: [id number] Dis Date: Status: ADM IN PHONE #: [phone] Exam Date: 09/04/2018 1023 FAX #: [phone] Reason: ABDOMINAL PAIN WITH T RANSAMINITIS EXAMS: CPT CODE: [id number] US ABDOMEN COMPLETE 00866 Ultrasound abdomen History: ABDOMINAL PAIN WITH TR ANSAMINITIS Comparison: None at this time Location: R16 The technologist reports the examination is limited due to ov erlying bowel gas. The gallbladder is absent. This is consistent wit h a given history of previous cholecystectomy. The common d uct measures 5 mm in diameter. No intrahepatic biliary ductal dilatation is identified. The echotexture of the liver is unremarkable. There is a 1.6 cm hepatic cyst The echotexture of the spleen is unremarkable. The right kidney measures 11.3 and the left kidney measures 12.4 cm in length. There is a 1 cm left renal cyst. There is no hydronephrosis. The abdominal aorta is within normal limits in diameter. The pancreas is not adequately demonstrated. The visualized portions of the inferior vena cava appear unremarkable. IMPRESSION: The gallbladder is absent. This is consistent with a given history of previous cholecystectomy. There is a small hepatic and left renal cyst. Otherwise unremarkable exam. at 1037 Reported and signed by: Irving Mathews MD PAGE 1 Signed Report (CONTINUED) FAX: Alessandro Latham MD [phone] [place]: [facility]: ADM FAX: Katy Pro MD [phone] Name: LAVONNE CONTRERAS [facility] : 1960 Age/S: 57/M [address] Unit #: [id number] Loc: C.3317 [place] [address] Phys: Katy Haines MD Acct: [id number] Dis Date: Status: ADM IN PHONE #: [phone] Exam Date: 09/04/2018 1023 FAX #: [phone] Reason: ABDOMINAL PAIN WITH TRANSAMINITIS EXAMS: CPT CODE: [id number] US ABDOMEN COMPLETE 78615 <Continued> CC: Alessandro Galindo MD; Katy Haines MD Technologist: Keiry Crowe RDMS Trnscrd Date/Time/By: 09/04/2018 (1037) : By: Jesús PAGE 2 Signed Report FAX: Alessandro Latham MD [phone] [place]: [facility]: ADM FAX: Katy Pro MD [phone] Name: DIANELAVONNE [facility] : 1960 Age/S: 57/M [address] Unit #: [id number] Loc: C.3317 [place] [address] Phys: Katy Haines MD Acct: [id number] Dis Date: Status: ADM IN PHONE #: [phone] Exam Date: 09/04/2018 1023 FAX #: [phone] Reason: ABDOMINAL PAIN WITH TRANSAMINITIS EXAMS: CPT CODE: [id number] ABDOMEN COMPLETE 03435 < Continued> Orig Print D/T: S: 09/04/2018 (4950) PAGE 3 Signed Report LIVER FUNCTION [id number] 13:35:00* Test Item Value Reference Range Interpretation Comments TOTAL PROTEIN (test code = PROT) 6.8 g/dL 6.3-8.2 N ALBUMIN (test code = ALB) 3.9 g/dL 3.5-5.0 N BILIRUBIN TOTAL (test code = BILT) 1.1 mg/dL 0.2-1.3 N BILIRUBIN CONJUGATED (test code = BILCON) 0 mg/dL 0-0.3 N ~~~~~~~~~~~~~~~~~~~~~~~~~~~~~~~~~~~~~~~~~~~~~~~~~~~~~~~~~~~~CONJUGATED BILIRUBIN IS THE REPLACEMENT ASSAY FOR DIRECTBILIRUBIN.~~~~~~~~~~~~~~~~~~~~~~~~~~~~~~~~~~~~~~~~~~~~~~~~~~~~~~~~~~~~ BILIRUBIN UNCONJUGATED (test code = BILUNC) 0.5 mg/dL 0-1.1 N SGOT/AST (test code = AST) 288 U/L 15-46 H SGPT/ALT (test code = ALT) 229 U/L 13-69 H ALKALINE PHOSPHATASE (test code = ALKP) 134 U/L 38-126 H GAMMA GLUTAMYL [id number] 13:35:00* Test Item Value Reference Range Interpretation Comments GAMMA GLUTAMYL TRANSPEPTIDASE (test code = GGT) 294 U/L 12-58 H [id number] 13:35:00* Test Item Value Reference Range Interpretation Comments MAGNESIUM (test code = MAG) 2.1 mg/dL 1.6-2.3 N LIVER FUNCTION [id number] 13:34:00* Test Item Value Reference Range Interpretation Comments TOTAL PROTEIN (test code = PROT) 6.8 g/dL 6.3-8.2 N ALBUMIN (test code = ALB) 3.9 g/dL 3.5-5.0 N BILIRUBIN TOTAL (test code = BILT) 1.1 mg/dL 0.2-1.3 N BILIRUBIN CONJUGATED (test code = BILCON) 0 mg/dL 0-0.3 N ~~~~~~~~~~~~~~~~~~~~~~~~~~~~~~~~~~~~~~~~~~~~~~~~~~~~~~~~~~~~CONJUGATED BILIRUBIN IS THE REPLACEMENT ASSAY FOR DIRECTBILIRUBIN.~~~~~~~~~~~~~~~~~~~~~~~~~~~~~~~~~~~~~~~~~~~~~~~~~~~~~~~~~~~~ BILIRUBIN UNCONJUGATED (test code = BILUNC) 0.5 mg/dL 0-1.1 N SGOT/AST (test code = AST) 288 U/L 15-46 H SGPT/ALT (test code = ALT) 229 U/L 13-69 H ALKALINE PHOSPHATASE (test code = ALKP) 134 U/L 38-126 H GAMMA GLUTAMYL [id number] 13:34:00* Test Item Value Reference Range Interpretation Comments GAMMA GLUTAMYL TRANSPEPTIDASE (test code = GGT) U/L 12-58 [id number] 13:34:00* Test Item Value Reference Range Interpretation Comments MAGNESIUM (test code = MAG) mg/dL 1.6-2.3 BASIC METABOLIC [id number] 08:02:00* Test Item Value Reference Range Interpretation Comments SODIUM (test code = NA) 135 mmol/L 137-145 L POTASSIUM (test code = K) 4.3 mmol/L 3.4-5.0 N CHLORIDE (test code = CL) 104 mmol/L 98-107 N CARBON DIOXIDE (test code = CO2) 20 mmol/L 22-30 L GLUCOSE (test code = GLU) 99 mg/dL 74-106 N BLOOD UREA NITROGEN (test code = BUN) 22 mg/dL 9-20 H GLOMERULAR FILTRATION RATE (test code = GFR) 74 >60 The estimated glomerular filtration rate is computed usingpatient race, age (>18), sex, and serum creatinine. If anyof the needed data elements are missing the Laboratory cannot compute an estimation of the glomerular filtration rate. CREATININE (test code = CREAT) 1.1 mg/dL 0.7-1.3 N CALCIUM (test code = CA) 9.1 mg/dL 8.4-10.2 N [id number] 08:02:00* Test Item Value Reference Range Interpretation Comments MAGNESIUM (test code = MAG) 2.1 mg/dL 1.6-2.3 N CBC W/AUTO [id number] 07:56:00* Test Item Value Reference Range Interpretation Comments WHITE BLOOD CELL (test code = WBC) 7.2 x10 3/uL 5.0-12.0 N RED BLOOD CELL (test code = RBC) 5.59 x10 6/uL 4.70-6.10 N HEMOGLOBIN (test code = HGB) 16.5 g/dL 14.0-18.0 HEMATOCRIT (test code = HCT) 51.1 % 37.0-49.0 H MEAN CELL VOLUME (test code = MCV) 91 fL 80-94 N MEAN CELL HGB (test code = MCH) 29.5 pg 27-31 N MEAN CELL HGB CONCENTRATION (test code = MCHC) 32.3 g/dL 33-37 L RED CELL DISTRIBUTION WIDTH (test code = RDW) 13.1 % 11.5-15. 5 N PLATELET COUNT (test code = PLT) 210 x10 3/uL 130-400 MEAN PLATELET VOLUME (test code = MPV) 9.6 fL 9.4-16.4 N NEUTROPHIL % (test code = NT%) 71.6 % 43-65 H IMMATURE GRANULOCYTE % (test code = IG%) 0.6 % 0.0-2.0 N LYMPHOCYTE % (test code = LY%) 17.1 % 20.5-45.5 L MONOCYTE % (test code = MO%) 8.6 % 5.5-11.7 N EOSINOPHIL % (test code = EO%) 1.7 % 0.9-2.9 N BASOPHIL % (test code = BA%) 0.4 % 0.2-1.0 N NUCLEATED RBC % (test code = NRBC%) 0.0 % 0-1.0 N NEUTROPHIL # (test code = NT#) 5.15 x10 3/uL 2.2-4.8 H IMMATURE GRANULOCYTE # (test code = IG#) 0.04 x10 3/uL 0-0.03 H LYMPHOCYTE # (test code = LY#) 1.23 x10 3/uL 1.3-2.9 L MONOCYTE # (test code = MO#) 0.62 x10 3/uL 0.3-0.8 N EOSINOPHIL # (test code = EO#) 0.12 x10 3/uL 0.0-0.2 N BASOPHIL # (test code = BA#) 0.03 x10 3/uL 0.0-0.1 N PLATELET ESTIMATE (test code = PLTEST) ADEQUATE ADEQUATE PLATELET MORPHOLOGY (test code = PLTMORPH) PLATELET CLUMPS SEEN NOR MAL CBC W/AUTO [id number] 07:35:00* Test Item Value Reference Range Interpretation Comments WHITE BLOOD CELL (test code = WBC) 7.2 x10 3/uL 5.0-12.0 N RED BLOOD CELL (test code = RBC) 5.59 x10 6/uL 4.70-6.10 N HEMOGLOBIN (test code = HGB) 16.5 g/dL 14.0-18.0 HEMATOCRIT (test code = HCT) 51.1 % 37.0-49.0 H MEAN CELL VOLUME (test code = MCV) 91 fL 80-94 N MEAN CELL HGB (test code = MCH) 29.5 pg 27-31 N MEAN CELL HGB CONCENTRATION (test code = MCHC) 32.3 g/dL 33-37 L RED CELL DISTRIBUTION WIDTH (test code = RDW) 13.1 % 11.5-15. 5 N PLATELET COUNT (test code = PLT) 210 x10 3/uL 130-400 MEAN PLATELET VOLUME (test code = MPV) 9.6 fL 9.4-16.4 N NEUTROPHIL % (test code = NT%) 71.6 % 43-65 H IMMATURE GRANULOCYTE % (test code = IG%) 0.6 % 0.0-2.0 N LYMPHOCYTE % (test code = LY%) 17.1 % 20.5-45.5 L MONOCYTE % (test code = MO%) 8.6 % 5.5-11.7 N EOSINOPHIL % (test code = EO%) 1.7 % 0.9-2.9 N BASOPHIL % (test code = BA%) 0.4 % 0.2-1.0 N NUCLEATED RBC % (test code = NRBC%) 0.0 % 0-1.0 N NEUTROPHIL # (test code = NT#) 5.15 x10 3/uL 2.2-4.8 H IMMATURE GRANULOCYTE # (test code = IG#) 0.04 x10 3/uL 0-0.03 H LYMPHOCYTE # (test code = LY#) 1.23 x10 3/uL 1.3-2.9 L MONOCYTE # (test code = MO#) 0.62 x10 3/uL 0.3-0.8 N EOSINOPHIL # (test code = EO#) 0.12 x10 3/uL 0.0-0.2 N BASOPHIL # (test code = BA#) 0.03 x10 3/uL 0.0-0.1 N CBC W/AUTO [id number] 07:35:00* Test Item Value Reference Range Interpretation Comments WHITE BLOOD CELL (test code = WBC) 7.2 x10 3/uL 5.0-12.0 N RED BLOOD CELL (test code = RBC) 5.59 x10 6/uL 4.70-6.10 N HEMOGLOBIN (test code = HGB) 16.5 g/dL 14.0-18.0 HEMATOCRIT (test code = HCT) 51.1 % 37.0-49.0 H MEAN CELL VOLUME (test code = MCV) 91 fL 80-94 N MEAN CELL HGB (test code = MCH) 29.5 pg 27-31 N MEAN CELL HGB CONCENTRATION (test code = MCHC) 32.3 g/dL 33-37 L RED CELL DISTRIBUTION WIDTH (test code = RDW) 13.1 % 11.5-15. 5 N PLATELET COUNT (test code = PLT) 210 x10 3/uL 130-400 MEAN PLATELET VOLUME (test code = MPV) 9.6 fL 9.4-16.4 N NEUTROPHIL % (test code = NT%) 71.6 % 43-65 H IMMATURE GRANULOCYTE % (test code = IG%) 0.6 % 0.0-2.0 N LYMPHOCYTE % (test code = LY%) 17.1 % 20.5-45.5 L MONOCYTE % (test code = MO%) 8.6 % 5.5-11.7 N EOSINOPHIL % (test code = EO%) 1.7 % 0.9-2.9 N BASOPHIL % (test code = BA%) 0.4 % 0.2-1.0 N NUCLEATED RBC % (test code = NRBC%) 0.0 % 0-1.0 N NEUTROPHIL # (test code = NT#) 5.15 x10 3/uL 2.2-4.8 H IMMATURE GRANULOCYTE # (test code = IG#) 0.04 x10 3/uL 0-0.03 H LYMPHOCYTE # (test code = LY#) 1.23 x10 3/uL 1.3-2.9 L MONOCYTE # (test code = MO#) 0.62 x10 3/uL 0.3-0.8 N EOSINOPHIL # (test code = EO#) 0.12 x10 3/uL 0.0-0.2 N BASOPHIL # (test code = BA#) 0.03 x10 3/uL 0.0-0.1 N - XR ABDOMEN 1 [id number] 06:07:00 FAX: Martin Brady MD [place]: St: [facility] FAX: Nikos Arizmendi MD [phone] Name: LAVONNE CONTRERAS [facility] : 1960 Age/S: 57/M [address] Unit #: [id number] Loc: C.69[address] [place] [address] Phys: Nikos Barney MD Acct: [id number] Dis Date: Status: ADM IN PHONE #: [phone] Exam Date: 09/03/2018539 FAX #: [phone] Reason: SBO EXAMS: CPT CODE: [id number] XR ABDOMEN 1 V 38612 EXAM: Abdomen 1 view LOCATION: C3 HISTORY: SBO COMPARISON: 08/15/2018 FINDINGS: Single frontal view of the abdomen. Few dilated loops of small bowel are seen centrally. No suspicious calcifications identified. No acute osseous findings. IMPRESSION: Ileus versus partial small bowel obstruction. Air is identified in the ascending colon. at 0607 Reported and signed by: Wen PRETTY, Javon CC: Martin Lunsford MD; Nikos Barney MD Technologist: RT Armand [facility] Date/Time/By: 09/03/2018 (0607) : By: [email or web address] PAGE 1 Signed Report FAX: Martin Brady MD [place]: St: ADM FAX: Nikos Arizmendi MD [phone] Name: LAVONNE CONTRERAS [facility] : 1960 e/S: 57/M [address] Unit #: [id number] Loc: C.5007 [place] [address] Phys: Nikos Barney MD Acct: [id number] Dis Date: Status: ADM IN PHONE #: [phone] Exam Date: 09/03/2018539 FAX #: [phone] Reason: SBO EXAMS: CPT CODE: [id number] XR ABDOMEN 1 V 38810 <Continued> Orig Print D/T: S: 09/03/2018 (0611) PAGE 2 Signed Report LIPID PROFILE (CORONARY RISK)2018-09-02 21:30:00* Test Item Value Reference Range Interpretation Comments TRIGLYCERIDES (test code = TRIG) 296 mg/dL TRIGLYCERIDES REFERENCE RANGE:Normal: <150 mg/dLBorderline High: 150-199 mg/dLHigh: 200-499 mg/dLVery High: >=500 mg/dL CHOLESTEROL (test code = CHOL) 279 mg/dL CHOLESTEROL REFERENCE RANGE:DESIRABLE: < 200 mg/dLBORDERLINE: 200-239 mg/dLHIGH: >=240 mg/dL HDL CHOLESTEROL (test code = HDL) 78 mg/dL 40-59 H LIPOPROTEIN LDL (test code = LDLC) 141.88 mg/dL 32-99 H CORONARY RISK FACTOR (test code = RISK) 3.58 CHOL/HDL RISK MALE: 1/2 AVG 3.43 FEMALE: 1/2 AVG 3.27 AVG 4.97 AVG 4.44 2X AVG 9.55 2X AVG 7.05 3X AVG 23.39 3X AVG 11.04~~~~~~~~~~~~~~~~~~~~~~~~~~~~~~~~~~~~~~~~~~~~~~~~~~~~~~~~~~~~National Cholesterol Education (NCEP) Guidelines:~~~~~~~~~~~~~~~~~~~~~~~~~~~~~~~~~~~~~~~~~~~~~~~~~~~~~~~~~~~~ HDL Cholesterol<40mg/dL: HDL Cholesterol (Major risk factor for CHD)>60mg/dL: HDL Cholesterol (Negative risk factor for CHD)40-59mg/dL: Borderline Risk LDL Cholesterol<100mg/dL: Desirable LDL-C -332cc/dL: Borderline High Risk LDL-C utkhcocfltxiz270-670tl/dL: High risk LDL-C concentration HDL-LDL Cholesterol is affected by a number of factors suchas smoking, age and sex.~~~~~~~~~~~~~~~~~~~~~~~~~~~~~~~~~~~~~~~~~~~~~~~~~~~~~~~~~~~~ LIPID PROFILE (CORONARY RISK)2018-09-02 21:19:00* Test Item Value Reference Range Interpretation Comments TRIGLYCERIDES (test code = TRIG) 296 mg/dL TRIGLYCERIDES REFERENCE RANGE:Normal: <150 mg/dLBorderline High: 150-199 mg/dLHigh: 200-499 mg/dLVery High: >=500 mg/dL CHOLESTEROL (test code = CHOL) 279 mg/dL CHOLESTEROL REFERENCE RANGE:DESIRABLE: < 200 mg/dLBORDERLINE: 200-239 mg/dLHIGH: >=240 mg/dL HDL CHOLESTEROL (test code = HDL) 78 mg/dL 40-59 H LIPOPROTEIN LDL (test code = LDLC) mg/dL 32-99 CORONARY RISK FACTOR (test code = RISK) 3.58 CHOL/HDL RISK MALE: 1/2 AVG 3.43 FEMALE: 1/2 AVG 3.27 AVG 4.97 AVG 4.44 2X AVG 9.55 2X AVG 7.05 3X AVG 23.39 3X AVG 11.04~~~~~~~~~~~~~~~~~~~~~~~~~~~~~~~~~~~~~~~~~~~~~~~~~~~~~~~~~~~~National Cholesterol Education (NCEP) Guidelines:~~~~~~~~~~~~~~~~~~~~~~~~~~~~~~~~~~~~~~~~~~~~~~~~~~~~~~~~~~~~ HDL Cholesterol<40mg/dL: HDL Cholesterol (Major risk factor for CHD)>60mg/dL: HDL Cholesterol (Negative risk factor for CHD)40-59mg/dL: Borderline Risk LDL Cholesterol<100mg/dL: Desirable LDL-C umjapggjrzmce369-951wo/dL: Borderline High Risk LDL-C yrkksujujsvys842-406qe/dL: High risk LDL-C concentration HDL-LDL Cholesterol is affected by a number of factors suchas smoking, age and sex.~~~~~~~~~~~~~~~~~~~~~~~~~~~~~~~~~~~~~~~~~~~~~~~~~~~~~~~~~~~~ BASIC METABOLIC [id number] 18:08:00* Test Item Value Reference Range Interpretation Comments SODIUM (test code = NA) 139 mmol/L 137-145 N POTASSIUM (test code = K) 4.8 mmol/L 3.4-5.0 N CHLORIDE (test code = CL) 101 mmol/L 98-107 N CARBON DIOXIDE (test code = CO2) 24 mmol/L 22-30 N GLUCOSE (test code = GLU) 98 mg/dL 74-106 N BLOOD UREA NITROGEN (test code = BUN) 16 mg/dL 9-20 N GLOMERULAR FILTRATION RATE (test code = GFR) 56 >60 L The estimated glomerular filtration rate is computed usingpatient race, age (>18), sex, and serum creatinine. If anyof the needed data elements are missing the Laboratory cannot compute an estimation of the glomerular filtration rate. CREATININE (test code = CREAT) 1.4 mg/dL 0.7-1.3 H CALCIUM (test code = CA) 10.9 mg/dL 8.4-10.2 H PROTHROMBIN [id number] 18:03:00* Test Item Value Reference Range Interpretation Comments PROTHROMBIN TIME PATIENT (test code = PTP) 10.1 SECONDS 9.2-12.1 N INTERNATIONAL NORMAL RATIO (test code = INR) 0.9 The INR is to be used only for monitoring ORAL ANTICOAGULANTTHERAPY. Indication INR Value1. Prophylaxis/treatment of: Venous Thrombosis, Pulmonary Embolism 2.0 - 3.02. Prevention of systemic embolism from: Tissue heart valves 2.0 - 3.0 Acute myocardial infarction (to present systemic embolism)* 2.0 - 3.0 Valvular heart disease 2.0 - 3.0 Atrial fibrillation 2.0 - 3.03. Mechanical prosthetic valves (high risk) 2.5 - 3.5 * If oral anticoagulant therapy is elected to preventrecurrent myocardial infarction, an INR of 2.5-3.5 isrecommended, consistent with Food and Drug Administrationrecommendations. THROMBOPLASTIN TIME [id number] 18:03:00* Test Item Value Reference Range Interpretation Comments THROMBOPLASTIN TIME PARTIAL (test code = PTT) 18.2 SECONDS 23.4-37. 0 L Therapeutic Range for Heparin EFFECTIVE 11/12/12 Heparin IU/mL aPTT Seconds0.3 64.30.7 88.8 CBC W/AUTO [id number] 18:01:00* Test Item Value Reference Range Interpretation Comments WHITE BLOOD CELL (test code = WBC) 9.0 x10 3/uL 5.0-12.0 N RED BLOOD CELL (test code = RBC) 6.64 x10 6/uL 4.70-6.10 H HEMOGLOBIN (test code = HGB) 19.5 g/dL 14.0-18.0 H HEMATOCRIT (test code = HCT) 58.9 % 37.0-49.0 H MEAN CELL VOLUME (test code = MCV) 89 fL 80-94 N MEAN CELL HGB (test code = MCH) 29.4 pg 27-31 N MEAN CELL HGB CONCENTRATION (test code = MCHC) 33.1 g/dL 33-37 N RED CELL DISTRIBUTION WIDTH (test code = RDW) 13.2 % 11.5-15. 5 N PLATELET COUNT (test code = PLT) 121 x10 3/uL 130-400 L MEAN PLATELET VOLUME (test code = MPV) 9.8 fL 9.4-16.4 N NEUTROPHIL % (test code = NT%) 65.8 % 43-65 H IMMATURE GRANULOCYTE % (test code = IG%) 0.6 % 0.0-2.0 N LYMPHOCYTE % (test code = LY%) 24.6 % 20.5-45.5 N MONOCYTE % (test code = MO%) 7.2 % 5.5-11.7 N EOSINOPHIL % (test code = EO%) 1.4 % 0.9-2.9 N BASOPHIL % (test code = BA%) 0.4 % 0.2-1.0 N NUCLEATED RBC % (test code = NRBC%) 0.0 % 0-1.0 N NEUTROPHIL # (test code = NT#) 5.92 x10 3/uL 2.2-4.8 H IMMATURE GRANULOCYTE # (test code = IG#) 0.05 x10 3/uL 0-0.03 H LYMPHOCYTE # (test code = LY#) 2.21 x10 3/uL 1.3-2.9 N MONOCYTE # (test code = MO#) 0.65 x10 3/uL 0.3-0.8 N EOSINOPHIL # (test code = EO#) 0.13 x10 3/uL 0.0-0.2 N BASOPHIL # (test code = BA#) 0.04 x10 3/uL 0.0-0.1 N TROPONIN I [id number] 17:55:00* Test Item Value Reference Range Interpretation Comments TROPONIN I RAPID (test code = TROPIRAP) 0.00 ng/mL 0.00-0.079 N ISTAT TROPONIN I CRITERIA0.00-0.08 ng/mL - Negative>0.08 ng/mL - Positive The use of serial sampling and testing protocol is arecommended practice.An elevated troponin level alone is often not sufficient fordiagnosis of myocardial infarction. Troponin results obtained by different assays may vary.Evaluation of the extent of myocardial damage based onincrease of troponin would be valid only if similarmethodology is used. CBC W/AUTO [id number] 08:40:00* Test Item Value Reference Range Interpretation Comments WHITE BLOOD CELL (test code = WBC) 4.6 x10 3/uL 5.0-12.0 L RED BLOOD CELL (test code = RBC) 5.20 x10 6/uL 4.70-6.10 N HEMOGLOBIN (test code = HGB) 15.6 g/dL 14.0-18.0 N HEMATOCRIT (test code = HCT) 48.9 % 37.0-49.0 N MEAN CELL VOLUME (test code = MCV) 94 fL 80-94 N MEAN CELL HGB (test code = MCH) 30.0 pg 27-31 N MEAN CELL HGB CONCENTRATION (test code = MCHC) 31.9 g/dL 33-37 L RED CELL DISTRIBUTION WIDTH (test code = RDW) 13.0 % 11.5-15. 5 N PLATELET COUNT (test code = PLT) 156 x10 3/uL 130-400 N MEAN PLATELET VOLUME (test code = MPV) 9.6 fL 9.4-16.4 N NEUTROPHIL % (test code = NT%) 49.8 % 43-65 N IMMATURE GRANULOCYTE % (test code = IG%) 0.9 % 0.0-2.0 N LYMPHOCYTE % (test code = LY%) 34.6 % 20.5-45.5 N MONOCYTE % (test code = MO%) 8.4 % 5.5-11.7 N EOSINOPHIL % (test code = EO%) 5.4 % 0.9-2.9 H BASOPHIL % (test code = BA%) 0.9 % 0.2-1.0 N NUCLEATED RBC % (test code = NRBC%) 0.0 % 0-1.0 N NEUTROPHIL # (test code = NT#) 2.31 x10 3/uL 2.2-4.8 N IMMATURE GRANULOCYTE # (test code = IG#) 0.04 x10 3/uL 0-0.03 H LYMPHOCYTE # (test code = LY#) 1.60 x10 3/uL 1.3-2.9 N MONOCYTE # (test code = MO#) 0.39 x10 3/uL 0.3-0.8 N EOSINOPHIL # (test code = EO#) 0.25 x10 3/uL 0.0-0.2 H BASOPHIL # (test code = BA#) 0.04 x10 3/uL 0.0-0.1 N PLATELET ESTIMATE (test code = PLTEST) ADEQUATE ADEQUATE PLATELET MORPHOLOGY (test code = PLTMORPH) NORMAL NORMAL DIFFERENTIAL [id number] 08:40:00* Test Item Value Reference Range Interpretation Comments RBC MORPHOLOGY REQUIRED (test code = RBCM) SEE COMMENT POIKILOCYTOSIS (test code = POIK) 2+ NONE SEEN A ANISOCYTOSIS (test code = ANISO) 1+ NONE SEEN A MICROCYTOSIS (test code = MICR) 1+ NONE SEEN A TEAR DROP CELLS (test code = TEAR) 1+ NONE SEEN A OVALOCYTES (test code = OVAL) 1+ NONE SEEN A COMPREHENSIVE METABOLIC [id number] 06:04:00* Test Item Value Reference Range Interpretation Comments SODIUM (test code = NA) 142 mmol/L 137-145 N POTASSIUM (test code = K) 3.7 mmol/L 3.4-5.0 N CHLORIDE (test code = CL) 108 mmol/L 98-107 H CARBON DIOXIDE (test code = CO2) 24 mmol/L 22-30 N GLUCOSE (test code = GLU) 88 mg/dL 74-106 N BLOOD UREA NITROGEN (test code = BUN) 12 mg/dL 9-20 N GLOMERULAR FILTRATION RATE (test code = GFR) >=60 max estimate >60 The estimated glomerular filtration rate is computed usingpatient race, age (>18), sex, and serum creatinine. If anyof the needed data elements are missing the Laboratory cannot compute an estimation of the glomerular filtration rate. CREATININE (test code = CREAT) 1.0 mg/dL 0.7-1.3 N TOTAL PROTEIN (test code = PROT) 7.0 g/dL 6.3-8.2 N ALBUMIN (test code = ALB) 4.0 g/dL 3.5-5.0 N CALCIUM (test code = CA) 9.2 mg/dL 8.4-10.2 N BILIRUBIN TOTAL (test code = BILT) 0.7 mg/dL 0.2-1.3 N BILIRUBIN CONJUGATED (test code = BILCON) 0 mg/dL 0-0.3 N ~~~~~~~~~~~~~~~~~~~~~~~~~~~~~~~~~~~~~~~~~~~~~~~~~~~~~~~~~~~~CONJUGATED BILIRUBIN IS THE REPLACEMENT ASSAY FOR DIRECTBILIRUBIN.~~~~~~~~~~~~~~~~~~~~~~~~~~~~~~~~~~~~~~~~~~~~~~~~~~~~~~~~~~~~ BILIRUBIN UNCONJUGATED (test code = BILUNC) 0.4 mg/dL 0-1.1 N SGOT/AST (test code = AST) 36 U/L 15-46 N SGPT/ALT (test code = ALT) 46 U/L 13-69 N ALKALINE PHOSPHATASE (test code = ALKP) 107 U/L 38-126 N [id number] 06:04:00* Test Item Value Reference Range Interpretation Comments MAGNESIUM (test code = MAG) 2.2 mg/dL 1.6-2.3 N COMPREHENSIVE METABOLIC [id number] 05:59:00* Test Item Value Reference Range Interpretation Comments SODIUM (test code = NA) 142 mmol/L 137-145 N POTASSIUM (test code = K) 3.7 mmol/L 3.4-5.0 N CHLORIDE (test code = CL) 108 mmol/L 98-107 H CARBON DIOXIDE (test code = CO2) 24 mmol/L 22-30 N GLUCOSE (test code = GLU) 88 mg/dL 74-106 N BLOOD UREA NITROGEN (test code = BUN) 12 mg/dL 9-20 N GLOMERULAR FILTRATION RATE (test code = GFR) >=60 max estimate >60 The estimated glomerular filtration rate is computed usingpatient race, age (>18), sex, and serum creatinine. If anyof the needed data elements are missing the Laboratory cannot compute an estimation of the glomerular filtration rate. CREATININE (test code = CREAT) 1.0 mg/dL 0.7-1.3 N TOTAL PROTEIN (test code = PROT) 7.0 g/dL 6.3-8.2 N ALBUMIN (test code = ALB) 4.0 g/dL 3.5-5.0 N CALCIUM (test code = CA) 9.2 mg/dL 8.4-10.2 N BILIRUBIN TOTAL (test code = BILT) 0.7 mg/dL 0.2-1.3 N BILIRUBIN CONJUGATED (test code = BILCON) 0 mg/dL 0-0.3 N ~~~~~~~~~~~~~~~~~~~~~~~~~~~~~~~~~~~~~~~~~~~~~~~~~~~~~~~~~~~~CONJUGATED BILIRUBIN IS THE REPLACEMENT ASSAY FOR DIRECTBILIRUBIN.~~~~~~~~~~~~~~~~~~~~~~~~~~~~~~~~~~~~~~~~~~~~~~~~~~~~~~~~~~~~ BILIRUBIN UNCONJUGATED (test code = BILUNC) 0.4 mg/dL 0-1.1 N SGOT/AST (test code = AST) 36 U/L 15-46 N SGPT/ALT (test code = ALT) 46 U/L 13-69 N ALKALINE PHOSPHATASE (test code = ALKP) 107 U/L 38-126 N [id number] 05:59:00* Test Item Value Reference Range Interpretation Comments MAGNESIUM (test code = MAG) mg/dL 1.6-2.3 CBC W/AUTO [id number] 05:47:00* Test Item Value Reference Range Interpretation Comments WHITE BLOOD CELL (test code = WBC) 4.6 x10 3/uL 5.0-12.0 L RED BLOOD CELL (test code = RBC) 5.20 x10 6/uL 4.70-6.10 N HEMOGLOBIN (test code = HGB) 15.6 g/dL 14.0-18.0 N HEMATOCRIT (test code = HCT) 48.9 % 37.0-49.0 N MEAN CELL VOLUME (test code = MCV) 94 fL 80-94 N MEAN CELL HGB (test code = MCH) 30.0 pg 27-31 N MEAN CELL HGB CONCENTRATION (test code = MCHC) 31.9 g/dL 33-37 L RED CELL DISTRIBUTION WIDTH (test code = RDW) 13.0 % 11.5-15. 5 N PLATELET COUNT (test code = PLT) 156 x10 3/uL 130-400 N MEAN PLATELET VOLUME (test code = MPV) 9.6 fL 9.4-16.4 N NEUTROPHIL % (test code = NT%) 49.8 % 43-65 N IMMATURE GRANULOCYTE % (test code = IG%) 0.9 % 0.0-2.0 N LYMPHOCYTE % (test code = LY%) 34.6 % 20.5-45.5 N MONOCYTE % (test code = MO%) 8.4 % 5.5-11.7 N EOSINOPHIL % (test code = EO%) 5.4 % 0.9-2.9 H BASOPHIL % (test code = BA%) 0.9 % 0.2-1.0 N NUCLEATED RBC % (test code = NRBC%) 0.0 % 0-1.0 N NEUTROPHIL # (test code = NT#) 2.31 x10 3/uL 2.2-4.8 N IMMATURE GRANULOCYTE # (test code = IG#) 0.04 x10 3/uL 0-0.03 H LYMPHOCYTE # (test code = LY#) 1.60 x10 3/uL 1.3-2.9 N MONOCYTE # (test code = MO#) 0.39 x10 3/uL 0.3-0.8 N EOSINOPHIL # (test code = EO#) 0.25 x10 3/uL 0.0-0.2 H BASOPHIL # (test code = BA#) 0.04 x10 3/uL 0.0-0.1 N CBC W/AUTO [id number] 05:47:00* Test Item Value Reference Range Interpretation Comments WHITE BLOOD CELL (test code = WBC) 4.6 x10 3/uL 5.0-12.0 L RED BLOOD CELL (test code = RBC) 5.20 x10 6/uL 4.70-6.10 N HEMOGLOBIN (test code = HGB) 15.6 g/dL 14.0-18.0 N HEMATOCRIT (test code = HCT) 48.9 % 37.0-49.0 N MEAN CELL VOLUME (test code = MCV) 94 fL 80-94 N MEAN CELL HGB (test code = MCH) 30.0 pg 27-31 N MEAN CELL HGB CONCENTRATION (test code = MCHC) 31.9 g/dL 33-37 L RED CELL DISTRIBUTION WIDTH (test code = RDW) 13.0 % 11.5-15. 5 N PLATELET COUNT (test code = PLT) 156 x10 3/uL 130-400 N MEAN PLATELET VOLUME (test code = MPV) 9.6 fL 9.4-16.4 N NEUTROPHIL % (test code = NT%) 49.8 % 43-65 N IMMATURE GRANULOCYTE % (test code = IG%) 0.9 % 0.0-2.0 N LYMPHOCYTE % (test code = LY%) 34.6 % 20.5-45.5 N MONOCYTE % (test code = MO%) 8.4 % 5.5-11.7 N EOSINOPHIL % (test code = EO%) 5.4 % 0.9-2.9 H BASOPHIL % (test code = BA%) 0.9 % 0.2-1.0 N NUCLEATED RBC % (test code = NRBC%) 0.0 % 0-1.0 N NEUTROPHIL # (test code = NT#) 2.31 x10 3/uL 2.2-4.8 N IMMATURE GRANULOCYTE # (test code = IG#) 0.04 x10 3/uL 0-0.03 H LYMPHOCYTE # (test code = LY#) 1.60 x10 3/uL 1.3-2.9 N MONOCYTE # (test code = MO#) 0.39 x10 3/uL 0.3-0.8 N EOSINOPHIL # (test code = EO#) 0.25 x10 3/uL 0.0-0.2 H BASOPHIL # (test code = BA#) 0.04 x10 3/uL 0.0-0.1 N CBC W/AUTO [id number] 05:44:00* Test Item Value Reference Range Interpretation Comments WHITE BLOOD CELL (test code = WBC) 4.6 x10 3/uL 5.0-12.0 L RED BLOOD CELL (test code = RBC) 5.20 x10 6/uL 4.70-6.10 N HEMOGLOBIN (test code = HGB) 15.6 g/dL 14.0-18.0 N HEMATOCRIT (test code = HCT) 48.9 % 37.0-49.0 N MEAN CELL VOLUME (test code = MCV) 94 fL 80-94 N MEAN CELL HGB (test code = MCH) 30.0 pg 27-31 N MEAN CELL HGB CONCENTRATION (test code = MCHC) 31.9 g/dL 33-37 L RED CELL DISTRIBUTION WIDTH (test code = RDW) 13.0 % 11.5-15. 5 N PLATELET COUNT (test code = PLT) 156 x10 3/uL 130-400 N MEAN PLATELET VOLUME (test code = MPV) 9.6 fL 9.4-16.4 N NEUTROPHIL % (test code = NT%) 49.8 % 43-65 N IMMATURE GRANULOCYTE % (test code = IG%) 0.9 % 0.0-2.0 N LYMPHOCYTE % (test code = LY%) 34.6 % 20.5-45.5 N MONOCYTE % (test code = MO%) 8.4 % 5.5-11.7 N EOSINOPHIL % (test code = EO%) 5.4 % 0.9-2.9 H BASOPHIL % (test code = BA%) 0.9 % 0.2-1.0 N NUCLEATED RBC % (test code = NRBC%) 0.0 % 0-1.0 N NEUTROPHIL # (test code = NT#) 2.31 x10 3/uL 2.2-4.8 N IMMATURE GRANULOCYTE # (test code = IG#) 0.04 x10 3/uL 0-0.03 H LYMPHOCYTE # (test code = LY#) 1.60 x10 3/uL 1.3-2.9 N MONOCYTE # (test code = MO#) 0.39 x10 3/uL 0.3-0.8 N EOSINOPHIL # (test code = EO#) 0.25 x10 3/uL 0.0-0.2 H BASOPHIL # (test code = BA#) 0.04 x10 3/uL 0.0-0.1 N - XR ABDOMEN 1 [id number] 04:50:00 FAX: Stormy Hernandez MD [phone] [place]: St: ADM FAX: Henry Kunz [phone] Name: LAVONNE CONTRERAS [facility] : 1960 Age/S: 57/M [address] Unit #: [id number] Loc: [address] [address] Phys: Henry Smith MD Acct: [id number] Dis Date: Status: ADM IN PHONE #: [phone] Exam Date: 08/15/2018251 FAX #: [phone] Reason: r/o sbo EXAMS: CPT CODE: [id number] XR ABDOMEN 1 V 53740 HISTORY: Male, 57 years of age with suspected small bowel obstruction, abdominal distention Location code: R16 EXAM: ABDOMEN, ONE VIEW COMPARISON: Correlation made with small bowel series performed yesterday and the abdomen and pelvis with IV co ntrast performed 08/13/2018. FINDINGS: AP view is provided. S lidia small bowel series performed yesterday all of the contrast has progre ssed into the colon all the way to the rectum. No significant residual sma ll bowel contrast. There are still several dilated loops of small bowel m easuring up to 6.4 cm diameter. No significant gastric distention. Contra st material in the urinary bladder is from prior CT scan. Hardware again n oted in the sacrum. No acute bony abnormalities. IMPRES WESLEY: 1. All of the contrast material is now in the colon. 2. Persistent small bowel dilatation. at 0450 Reported and signed by: Yamilex Teague MD CC: Stormy Corrales MD; Lissa Smith Technologist: JORGE ALBERTO ManningR); Patricia Tucker Trnscrd Date/Time/By: 08/15/2018 (4263) : By: SaludW PAGE 1 Signed Report FAX: Stormy Hernandez MD [phone] [place]: [facility]: ADM FAX: Henry Kunz [phone] Name: LAVONNE CONTRERAS [facility] : 1960 Age/S: 57/M [address] Unit #: [id number] Loc: [address] [address] Phys: Henry Smith MD Acct: [id number] Dis Date: Status: ADM IN PHONE #: [phone] Exam Date: 08/15/2018251 FAX #: [phone] Reason: r/o sbo EXAMS: CPT CODE: [id number] XR ABDOMEN 1 V 21832 < Continued> Orig Print D/T: S: 08/15/2018 (0456) PAGE 2 Signed Report - XR SMALL [id number] 14:16:00 FAX: Sage Noland [place]: [facility]: ADM FAX: Stormy Hernandez MD [phone] Name: LAVONNE CONTRERAS [facility] : 1960 Age/S: 57/M [address] Unit #: [id number] Loc: [address] [place] [address] Phys: Sage Noland MD Acct: [id number] Dis Date: Status: ADM IN PHONE #: [phone] Exam Date: 08/14/2018 1310 FAX #: [phone] Reason: SBO EXAMS: CPT CODE: [id number] XR SMALL BOWEL 95559 C3 TIME OF STUDY: 08/14/2018 REASON FOR EXAM: SBO COMPARISON: CT 08/13/2018. Small bowel followthrough was carried out for 3 hours . There is no evidence of ob struction or mass identified. Mild diffuse dilatation of loops of small b owel again noted. The mucosal pattern is normal throughout the small tre l. Transit time is normal. IMPRESSION: Mild diffuse dilatation of small bowel with no evidence of obstruction. This is like ly due to ileus versus enteritis. at 1416 Reported and signed by: Bruno Nair MD CC: Sage Noland MD; Stormy Corrales MD Technologist: Dilcia Drew; Krupa Menard Trnscrd Date/Time/By: 08/14/2018 (1416) : By: [email or web address] PAGE 1 Signed Report FAX: Sage Dubose [place]: St: [facility] FAX: Stormy Hernandez MD [phone] Name: LAVONNE CONTRERAS [facility] : 1960 Age/S: 57/M [address] Unit #: [id number] Loc: [address] [place] [address] Phys: Sage Noland MD Acct: [id number] Dis Date: Status: ADM IN PHONE #: [phone] Exam Date: 08/14/2018 1310 FAX #: [phone] Reason: SBO EXAMS: CPT CODE: [id number] XR SMALL BOWEL 39588 < Continued> Orig Print D/T: S: 08/14/2018 (4049) PAGE 2 Signed Report LIPID PROFILE (CORONARY RISK)2018-08-14 05:39:00* Test Item Value Reference Range Interpretation Comments TRIGLYCERIDES (test code = TRIG) 201 mg/dL TRIGLYCERIDES REFERENCE RANGE:Normal: <150 mg/dLBorderline High: 150-199 mg/dLHigh: 200-499 mg/dLVery High: >=500 mg/dL CHOLESTEROL (test code = CHOL) 164 mg/dL CHOLESTEROL REFERENCE RANGE:DESIRABLE: < 200 mg/dLBORDERLINE: 200-239 mg/dLHIGH: >=240 mg/dL HDL CHOLESTEROL (test code = HDL) 47 mg/dL 40-59 N LIPOPROTEIN LDL (test code = LDLC) 87.60 mg/dL 32-99 N CORONARY RISK FACTOR (test code = RISK) 3.49 CHOL/HDL RISK MALE: 1/2 AVG 3.43 FEMALE: 1/2 AVG 3.27 AVG 4.97 AVG 4.44 2X AVG 9.55 2X AVG 7.05 3X AVG 23.39 3X AVG 11.04~~~~~~~~~~~~~~~~~~~~~~~~~~~~~~~~~~~~~~~~~~~~~~~~~~~~~~~~~~~~National Cholesterol Education (NCEP) Guidelines:~~~~~~~~~~~~~~~~~~~~~~~~~~~~~~~~~~~~~~~~~~~~~~~~~~~~~~~~~~~~ HDL Cholesterol<40mg/dL: HDL Cholesterol (Major risk factor for CHD)>60mg/dL: HDL Cholesterol (Negative risk factor for CHD)40-59mg/dL: Borderline Risk LDL Cholesterol<100mg/dL: Desirable LDL-C cwvitansjujuw682-520ax/dL: Borderline High Risk LDL-C zcsbglqvgmupf106-943vu/dL: High risk LDL-C concentration HDL-LDL Cholesterol is affected by a number of factors suchas smoking, age and sex.~~~~~~~~~~~~~~~~~~~~~~~~~~~~~~~~~~~~~~~~~~~~~~~~~~~~~~~~~~~~ LIPID PROFILE (CORONARY RISK)2018-08-14 05:37:00* Test Item Value Reference Range Interpretation Comments TRIGLYCERIDES (test code = TRIG) 201 mg/dL TRIGLYCERIDES REFERENCE RANGE:Normal: <150 mg/dLBorderline High: 150-199 mg/dLHigh: 200-499 mg/dLVery High: >=500 mg/dL CHOLESTEROL (test code = CHOL) 164 mg/dL CHOLESTEROL REFERENCE RANGE:DESIRABLE: < 200 mg/dLBORDERLINE: 200-239 mg/dLHIGH: >=240 mg/dL HDL CHOLESTEROL (test code = HDL) 47 mg/dL 40-59 N LIPOPROTEIN LDL (test code = LDLC) mg/dL 32-99 CORONARY RISK FACTOR (test code = RISK) 3.49 CHOL/HDL RISK MALE: 1/2 AVG 3.43 FEMALE: 1/2 AVG 3.27 AVG 4.97 AVG 4.44 2X AVG 9.55 2X AVG 7.05 3X AVG 23.39 3X AVG 11.04~~~~~~~~~~~~~~~~~~~~~~~~~~~~~~~~~~~~~~~~~~~~~~~~~~~~~~~~~~~~National Cholesterol Education (NCEP) Guidelines:~~~~~~~~~~~~~~~~~~~~~~~~~~~~~~~~~~~~~~~~~~~~~~~~~~~~~~~~~~~~ HDL Cholesterol<40mg/dL: HDL Cholesterol (Major risk factor for CHD)>60mg/dL: HDL Cholesterol (Negative risk factor for CHD)40-59mg/dL: Borderline Risk LDL Cholesterol<100mg/dL: Desirable LDL-C -314va/dL: Borderline High Risk LDL-C wnbxuwftumwth423-195nx/dL: High risk LDL-C concentration HDL-LDL Cholesterol is affected by a number of factors suchas smoking, age and sex.~~~~~~~~~~~~~~~~~~~~~~~~~~~~~~~~~~~~~~~~~~~~~~~~~~~~~~~~~~~~ - CT ABD PELVIS [id number] 22:12:00 [place]: St: ADM Name: LAVONNE HEALY [facility] : 2 Age/S: 57/M [address] Unit: [id number] Loc: [place] [address] Phys: Jeanne Urena DO Acct: [id number] Dis Date: Status: ADM IN PHONE #: [phone] Exam Date: 08/13/20182153 FAX #: [phone] Reason: abd pain EXAMS: CPT CODE: [id number] CT ABD PELVIS W/CONT 17984 EXAM: CT ABDOMEN AND PELVIS WITH IV CONTRAST Location code: R16 HISTORY: Male, 57 ye ars of age with abdominal pain, small bowel obstruction ANA CRISTINA HNIQUE: Contrast - Nonionic IV contrast was given. No GI contrast was giv en. Portal venous phase: Abdomen and pelvis Delayed phase: None Reconstructions: Coronal and sagittal One or more of the follow ing dose reduction techniques were used: Automated exposure control; adjus tment of the mA and/or kV according to the patient size; and/or use of ite rative reconstruction technique. COMPARISON: Previous CT abdomen a nd pelvis with contrast 08/10/2018 FINDINGS: Statements: Exam quality is acceptable. Lower thorax: Unremarkable. H epatobiliary: The liver is normal without focal lesion. Status post cholec ystectomy. No biliary dilation. Pancreas: Normal. Sp suleman: Normal. Adrenals: Normal. Genitourinary: No s olid renal mass, significant cortical thinning, obvious renal stone or hyd ronephrosis. Ureters are unremarkable. Urinary bladder is unremarkable. Th e patient has a penile prosthesis. Gastrointestinal: Surgical clip s are seen in the region of the terminal ileum. Several dilated loops of s mall bowel with mild wall thickening are present measuring up to 4.6 cm di ameter, corresponding to distal small bowel. The proximal small bowel is d ecompressed. Air fluid levels are seen throughout the dilated small bowel and throughout the colon. Moderate air is seen throughout the colon all the way to the rectum. The appendix is not visualized. Stomach is PAGE 1 Signed Report (CONTINUED) [place]: St: ADM Name: LAVONNE CONTRERAS [facility] [place] : 1960 Age/S: 57/M [address] Unit: [id number] Loc: [place] [address] Phys: Jeanne Urena Acct: [id number] Dis Date: Status: ADM IN PHONE #: [phone] Exam Date: 08/13/20182153 FAX #: [phone] Reason: abd pain EXAMS: CPT CODE: [id number] CT ABD PELVIS W/CONT 63400 <Continued> unremarkable. Vascular: Atherosclerotic calcifications are seen within the aorta and branch vessels. No aneurysm or dissection. Lymphatics: No enlarged lymph nodes by CT size criteria. Bones/Soft Tissues: Hardware is present in the sacrum. There is fusion of both SI joints. Deformity of the bilateral pubic bones as the appearance of previous trauma. No acute osseous abnormality. No ventral hernias. Peritoneum/Other: No free intraperitoneal air. No free intraperitoneal fluid. IMPRESSION: 1. There are several dilated loops of distal small bowel associated with wall thickening and air-fluid levels. The colon also has diffuse air-fluid levels and is not signi ficantly decompressed. Findings could reflect an ileus/enteritis versus partial small bowel obstruction. Since prior study, small bowel distenti on has slightly decreased. 2. No free fluid or free air. Wendy ctronically Signed by Yamilex Teague MD on 08/13/2018 at 2212 Reported and signed by: Yamilex Teague MD CC: Technologist: Patricia Tucker; TRA VELAZQUEZ Trnscrd Dt/Tm: 08/13/2018 (2212) [email or web address] Orig Print D/T: S: 08/13/2018 (2215 PAGE 2 Signed Report UA RFLX MICR CULT IF [id number] 18:52:00* Test Item Value Reference Range Interpretation Comments UA COLOR (test code = COLU) Straw Yellow UA APPEARANCE (test code = APPU) Slightly-Cloudy Clear UA GLUCOSE DIPSTICK (test code = DGLUU) Negative Negative UA BILIRUBIN DIPSTICK (test code = BILU) Negative Negative UA KETONE DIPSTICK (test code = KETU) Negative mg/dL Negative UA SPECIFIC GRAVITY (test code = SGU) 1.009 <1.030 UA BLOOD DIPSTICK (test code = MERARY) Negative Negative UA PH DIPSTICK (test code = JAISON) 7.0 5.0-8.0 UA PROTEIN DIPSTICK (test code = PROU) NEGATIVE mg/dL Negative UA UROBILINOGEN DIPSTICK (test code = URO) Negative mg/dL Negative UA NITRITE DIPSTICK (test code = NOEL) Negative Negative UA LEUKOCYTE ESTERASE DIPSTICK (test code = LEUU) NEGATIVE Nega tive UA WBC (test code = WBCUR) 0-3 /HPF <4-5 < 10 WBC/HPF = PYURIA ABSENT URINE CULTURE NOT INDICATED UA RBC (test code = RBCU) 0-3 /HPF <4-5 UA BACTERIA (test code = BACU) None /HPF None-Rare UA SQUAMOUS CELLS (test code = SQU) 0-5 (RARE) /HPF 0-5 (RARE) SOURCE OF URINE: CLEAN CATCHless than 18 yrs old, neutropenic, or urological marcos gerard? NOPrimary Indication for Culture: OtherOther Indication: ED PATIENT PROCALCITONIN (PCT)2018-08-13 18:52:00* Test Item Value Reference Range Interpretation Comments PROCALCITONIN (PCT) (test code = PROCAL) < 0.05 NG/ML (PCT) Normal Value: <0.05 NG/ML <0.5 NG/ML - low risk of severe sepsis and/or septic shock>2.0 NG/ML - high risk of severe sepsis and/or septic shock PCT concentrations between 0.5 and 2.0 NG/ML should beinterpreted taking into account the patient's history.It is recommended to retest PCT within 6-24 hours if anyconcentrations between 0.5-2.0 NG/ML are obtained. BASIC METABOLIC [id number] 18:28:00* Test Item Value Reference Range Interpretation Comments SODIUM (test code = NA) 142 mmol/L 137-145 N POTASSIUM (test code = K) 4.4 mmol/L 3.4-5.0 N CHLORIDE (test code = CL) 101 mmol/L 98-107 N CARBON DIOXIDE (test code = CO2) 30 mmol/L 22-30 N GLUCOSE (test code = GLU) 88 mg/dL 74-106 N BLOOD UREA NITROGEN (test code = BUN) 12 mg/dL 9-20 N GLOMERULAR FILTRATION RATE (test code = GFR) >=60 max estimate >60 The estimated glomerular filtration rate is computed usingpatient race, age (>18), sex, and serum creatinine. If anyof the needed data elements are missing the Laboratory cannot compute an estimation of the glomerular filtration rate. CREATININE (test code = CREAT) 1.0 mg/dL 0.7-1.3 N CALCIUM (test code = CA) 10.4 mg/dL 8.4-10.2 H LIVER FUNCTION [id number] 18:28:00* Test Item Value Reference Range Interpretation Comments TOTAL PROTEIN (test code = PROT) 8.1 g/dL 6.3-8.2 N ALBUMIN (test code = ALB) 4.6 g/dL 3.5-5.0 N BILIRUBIN TOTAL (test code = BILT) 0.3 mg/dL 0.2-1.3 N BILIRUBIN CONJUGATED (test code = BILCON) 0 mg/dL 0-0.3 N ~~~~~~~~~~~~~~~~~~~~~~~~~~~~~~~~~~~~~~~~~~~~~~~~~~~~~~~~~~~~CONJUGATED BILIRUBIN IS THE REPLACEMENT ASSAY FOR DIRECTBILIRUBIN.~~~~~~~~~~~~~~~~~~~~~~~~~~~~~~~~~~~~~~~~~~~~~~~~~~~~~~~~~~~~ BILIRUBIN UNCONJUGATED (test code = BILUNC) 0 mg/dL 0-1.1 N SGOT/AST (test code = AST) 33 U/L 15-46 N SGPT/ALT (test code = ALT) 45 U/L 13-69 N ALKALINE PHOSPHATASE (test code = ALKP) 118 U/L 38-126 N [id number] 18:28:00* Test Item Value Reference Range Interpretation Comments LIPASE (test code = LIP) 259 U/L 23-300 N BASIC METABOLIC [id number] 18:27:00* Test Item Value Reference Range Interpretation Comments SODIUM (test code = NA) 142 mmol/L 137-145 N POTASSIUM (test code = K) 4.4 mmol/L 3.4-5.0 N CHLORIDE (test code = CL) 101 mmol/L 98-107 N CARBON DIOXIDE (test code = CO2) 30 mmol/L 22-30 N GLUCOSE (test code = GLU) 88 mg/dL 74-106 N BLOOD UREA NITROGEN (test code = BUN) 12 mg/dL 9-20 N GLOMERULAR FILTRATION RATE (test code = GFR) >=60 max estimate >60 The estimated glomerular filtration rate is computed usingpatient race, age (>18), sex, and serum creatinine. If anyof the needed data elements are missing the Laboratory cannot compute an estimation of the glomerular filtration rate. CREATININE (test code = CREAT) 1.0 mg/dL 0.7-1.3 N CALCIUM (test code = CA) 10.4 mg/dL 8.4-10.2 H LIVER FUNCTION [id number] 18:27:00* Test Item Value Reference Range Interpretation Comments TOTAL PROTEIN (test code = PROT) 8.1 g/dL 6.3-8.2 N ALBUMIN (test code = ALB) 4.6 g/dL 3.5-5.0 N BILIRUBIN TOTAL (test code = BILT) 0.3 mg/dL 0.2-1.3 N BILIRUBIN CONJUGATED (test code = BILCON) 0 mg/dL 0-0.3 N ~~~~~~~~~~~~~~~~~~~~~~~~~~~~~~~~~~~~~~~~~~~~~~~~~~~~~~~~~~~~CONJUGATED BILIRUBIN IS THE REPLACEMENT ASSAY FOR DIRECTBILIRUBIN.~~~~~~~~~~~~~~~~~~~~~~~~~~~~~~~~~~~~~~~~~~~~~~~~~~~~~~~~~~~~ BILIRUBIN UNCONJUGATED (test code = BILUNC) 0 mg/dL 0-1.1 N SGOT/AST (test code = AST) 33 U/L 15-46 N SGPT/ALT (test code = ALT) 45 U/L 13-69 N ALKALINE PHOSPHATASE (test code = ALKP) 118 U/L 38-126 N [id number] 18:27:00* Test Item Value Reference Range Interpretation Comments LIPASE (test code = LIP) U/L 23-300 CBC W/AUTO [id number] 18:16:00* Test Item Value Reference Range Interpretation Comments WHITE BLOOD CELL (test code = WBC) 5.6 x10 3/uL 5.0-12.0 N RED BLOOD CELL (test code = RBC) 5.47 x10 6/uL 4.70-6.10 N HEMOGLOBIN (test code = HGB) 16.5 g/dL 14.0-18.0 N HEMATOCRIT (test code = HCT) 49.9 % 37.0-49.0 H MEAN CELL VOLUME (test code = MCV) 91 fL 80-94 N MEAN CELL HGB (test code = MCH) 30.2 pg 27-31 N MEAN CELL HGB CONCENTRATION (test code = MCHC) 33.1 g/dL 33-37 N RED CELL DISTRIBUTION WIDTH (test code = RDW) 12.9 % 11.5-15. 5 N PLATELET COUNT (test code = PLT) 224 x10 3/uL 130-400 N MEAN PLATELET VOLUME (test code = MPV) 9.7 fL 9.4-16.4 N NEUTROPHIL % (test code = NT%) 66.7 % 43-65 H IMMATURE GRANULOCYTE % (test code = IG%) 0.4 % 0.0-2.0 N LYMPHOCYTE % (test code = LY%) 18.2 % 20.5-45.5 L MONOCYTE % (test code = MO%) 10.6 % 5.5-11.7 N EOSINOPHIL % (test code = EO%) 3.6 % 0.9-2.9 H BASOPHIL % (test code = BA%) 0.5 % 0.2-1.0 N NUCLEATED RBC % (test code = NRBC%) 0.0 % 0-1.0 N NEUTROPHIL # (test code = NT#) 3.73 x10 3/uL 2.2-4.8 N IMMATURE GRANULOCYTE # (test code = IG#) 0.02 x10 3/uL 0-0.03 N LYMPHOCYTE # (test code = LY#) 1.02 x10 3/uL 1.3-2.9 L MONOCYTE # (test code = MO#) 0.59 x10 3/uL 0.3-0.8 N EOSINOPHIL # (test code = EO#) 0.20 x10 3/uL 0.0-0.2 N BASOPHIL # (test code = BA#) 0.03 x10 3/uL 0.0-0.1 N - XR ABDOMEN [id number] 18:07:00 [place]: St: PRE Name: LAVONNE BAEZA [facility] [place] : [birth year] Age/S: 57/M [address] Unit #: [id number] Loc: [place] [address] Phys: Donal Hays Acct: [id number] Dis Date: Status: PRE ER PHONE #: [phone] Exam Date: 08/13/2018 1705 FAX #: [phone] Reason: sbo, pain EXAMS: CPT CODE: [id number] XR ABDOMEN 2V 08054 C3 TIME OF STUDY: 08/13/2018 4:21 PM REASON FOR EXAM: sbo, pain COMPAR WILLIAN: KUB and the same date. 3 AP views of the abdomen were obta ined. There are severely dilated and gas-filled loops of small bowel thro ughout the abdomen. No free air or organomegaly is seen. No abnormal calc ifications are identified. IMPRESSION: 1. Persist ent small bowel obstruction. at 1807 Reported and signed by: Bonnie Nair MD CC: Technologist: Franchesca Angulo rnscrd Date/Time/By: 08/13/2018 (1806) : By: [email or web address] PAGE 1 Signed Report [place]: St: PRE Name: LAVONNE CONTRERAS [facility] [place] : 1960 Age/S: 57/M [address] Unit #: [id number] Loc: [place] [address] Phys: Donal Hays Acct: [id number] Dis Date: Status: PRE ER PHONE #: [phone] Exam Date: 08/13/2018 1705 FAX #: [phone] Reason: sbo, pain EXAMS: CPT CODE: [id number] XR ABDOMEN 2V 15104 <Continued> Orig Print D/T: S: 08/13/2018 (5898) PAGE 2 Signed Report LACTIC ACID [id number] 17:36:00 * Test Item Value Reference Range Interpretation Comments LACTIC ACID POC (test code = LACTP) 1.74 mmol/L 0.7-2.0 N - XR ABDOMEN 1 [id number] 05:49:00 FAX: Maria Teresa Lynne MD [phone] [place]: St: ADM FAX: Nikos Arizmendi MD [phone] Name: LAVONNE CONTRERAS [facility] : 1960 Age/S: 57/M [address] Unit #: [id number] Loc: C.33[address] [place] [address] Phys: Nikos Barney MD Acct: [id number] Dis Date: Status: ADM IN PHONE #: [phone] Exam Date: 08/13/2018 0505 FAX #: [phone] Reason: SBO EXAMS: CPT CODE: [id number] XR ABDOMEN 1 V 42650 Exam: KUB. Location: F6 History: SBO Findings: A supine view of the abdomen demonstrates a few loops of slightly dilated small intestine the mid and upper abdomen, unchanged in appearance from the previous study. The large and small intestine are normal in caliber. No organomegaly, abnormal masses or calcifications are seen. No pneumatosis or free air is present. Impression: Stable exam. at 0588 Reported and signed by: Cindy Randle ncesco CC: Maria Teresa Gottlieb MD; Nikos Barney MD Technologist: RT Armand (Joe) Trnscrd Date/Time/By: 08/13/2018 (0549) : By: TannaFC PAGE 1 Signed Report FAX: Maria Teresa Solano MD [phone] [place]: [facility]: ADM FAX: Nikos Arizmendi MD [phone] Name: LAVONNE CONTRERAS [facility] : 1960 Age/S: 57/M [address] Unit #: [id number] Loc: C.25[address] [place] [address] Phys: Nikos Barney MD Acct: [id number] Dis Date: Status: ADM IN PHONE #: [phone] Exam Date: 08/13/2018 0505 FAX #: [phone] Reason: SBO EXAMS: CPT CODE: [id number] XR ABDOMEN 1 V 94898 < Continued> Orig Print D/T: S: 08/13/2018 (0552) PAGE 2 Signed Report - XR ABDOMEN 1 [id number] 05:30:00 FAX: Maria Teresa Lynne MD [phone] [place]: [facility]: ADM FAX: Nikos Arizmendi MD [phone] Name: LAVONNE CONTRERAS [facility] : 1960 Age/S: 57/M [address] Unit #: [id number] Loc: C.33[address] [place] [address] Phys: Nikos Barney MD Acct: [id number] Dis Date: Status: ADM IN PHONE #: [phone] Exam Date: 08/12/2018509 FAX #: [phone] Reason: SBO EXAMS: CPT CODE: [id number] XR ABDOMEN 1 V 36513 Exam: KUB. Location: F6 History: SBO COMPARISON: 08/11/2018 Findings: A supine view of the abdomen demonstrates no changes occurred in the bowel dilatation. No organomegaly, abnormal masses or calcifications are seen. No pneumatosis or free air is present. Impression: Stable abdomen. at 0723 Reported and signed by: Michael Randle CC: Maria Teresa Gottlieb MD; Nikos Barney MD Technologist: YANA SHEARER RT (R) Trnscrd Date/Time/By: (4664) : By: [email or web address] PAGE 1 Signed Report FAX: Maria Teresa Lynne MD [phone] [place]: St: ADM FAX: Nikos Arizmendi MD [phone] -- N alexandra: LAVONNE CONTRERAS [facility] : 1960 Age/S: 57/M [address] Unit #: [id number] Loc: C.0293 [place] [address] Phys: Hernan Barney MD Acct: [id number] Dis D ate: Status: ADM IN PHONE #: Exam Date: 08/12/2018509 FAX #: [phone] Reason: SBO EXAMS: CPT CODE: [id number] XR ABDOMEN 1 V 16552 <Continued> Orig Print D/T: S: 08/12/2018 (7100) PAGE 2 Signed Report BASIC METABOLIC [id number] 07:19:00* Test Item Value Reference Range Interpretation Comments SODIUM (test code = NA) 139 mmol/L 137-145 N POTASSIUM (test code = K) 4.3 mmol/L 3.4-5.0 N CHLORIDE (test code = CL) 107 mmol/L 98-107 N CARBON DIOXIDE (test code = CO2) 21 mmol/L 22-30 L GLUCOSE (test code = GLU) 112 mg/dL 74-106 H BLOOD UREA NITROGEN (test code = BUN) 14 mg/dL 9-20 N GLOMERULAR FILTRATION RATE (test code = GFR) >=60 max estimate >60 The estimated glomerular filtration rate is computed usingpatient race, age (>18), sex, and serum creatinine. If anyof the needed data elements are missing the Laboratory cannot compute an estimation of the glomerular filtration rate. CREATININE (test code = CREAT) 0.8 mg/dL 0.7-1.3 N CALCIUM (test code = CA) 9.1 mg/dL 8.4-10.2 N [id number] 07:19:00* Test Item Value Reference Range Interpretation Comments PHOSPHOROUS (test code = PHOS) 3.6 mg/dL 2.5-4.5 N [id number] 07:19:00* Test Item Value Reference Range Interpretation Comments MAGNESIUM (test code = MAG) 2.2 mg/dL 1.6-2.3 N BASIC METABOLIC [id number] 07:18:00* Test Item Value Reference Range Interpretation Comments SODIUM (test code = NA) 139 mmol/L 137-145 N POTASSIUM (test code = K) 4.3 mmol/L 3.4-5.0 N CHLORIDE (test code = CL) 107 mmol/L 98-107 N CARBON DIOXIDE (test code = CO2) 21 mmol/L 22-30 L GLUCOSE (test code = GLU) 112 mg/dL 74-106 H BLOOD UREA NITROGEN (test code = BUN) 14 mg/dL 9-20 N GLOMERULAR FILTRATION RATE (test code = GFR) >=60 max estimate >60 The estimated glomerular filtration rate is computed usingpatient race, age (>18), sex, and serum creatinine. If anyof the needed data elements are missing the Laboratory cannot compute an estimation of the glomerular filtration rate. CREATININE (test code = CREAT) 0.8 mg/dL 0.7-1.3 N CALCIUM (test code = CA) 9.1 mg/dL 8.4-10.2 N [id number] 07:18:00* Test Item Value Reference Range Interpretation Comments PHOSPHOROUS (test code = PHOS) mg/dL 2.5-4.5 [id number] 07:18:00* Test Item Value Reference Range Interpretation Comments MAGNESIUM (test code = MAG) mg/dL 1.6-2.3 CBC W/AUTO [id number] 07:05:00* Test Item Value Reference Range Interpretation Comments WHITE BLOOD CELL (test code = WBC) 7.8 x10 3/uL 5.0-12.0 N RED BLOOD CELL (test code = RBC) 5.61 x10 6/uL 4.70-6.10 N HEMOGLOBIN (test code = HGB) 17.3 g/dL 14.0-18.0 N HEMATOCRIT (test code = HCT) 51.1 % 37.0-49.0 H MEAN CELL VOLUME (test code = MCV) 91 fL 80-94 N MEAN CELL HGB (test code = MCH) 30.8 pg 27-31 N MEAN CELL HGB CONCENTRATION (test code = MCHC) 33.9 g/dL 33-37 N RED CELL DISTRIBUTION WIDTH (test code = RDW) 13.6 % 11.5-15. 5 N PLATELET COUNT (test code = PLT) 196 x10 3/uL 130-400 N MEAN PLATELET VOLUME (test code = MPV) 9.4 fL 9.4-16.4 N NEUTROPHIL % (test code = NT%) 74.5 % 43-65 H IMMATURE GRANULOCYTE % (test code = IG%) 0.4 % 0.0-2.0 N LYMPHOCYTE % (test code = LY%) 15.6 % 20.5-45.5 L MONOCYTE % (test code = MO%) 8.1 % 5.5-11.7 N EOSINOPHIL % (test code = EO%) 1.0 % 0.9-2.9 N BASOPHIL % (test code = BA%) 0.4 % 0.2-1.0 N NUCLEATED RBC % (test code = NRBC%) 0.0 % 0-1.0 N NEUTROPHIL # (test code = NT#) 5.80 x10 3/uL 2.2-4.8 H IMMATURE GRANULOCYTE # (test code = IG#) 0.03 x10 3/uL 0-0.03 N LYMPHOCYTE # (test code = LY#) 1.21 x10 3/uL 1.3-2.9 L MONOCYTE # (test code = MO#) 0.63 x10 3/uL 0.3-0.8 N EOSINOPHIL # (test code = EO#) 0.08 x10 3/uL 0.0-0.2 N BASOPHIL # (test code = BA#) 0.03 x10 3/uL 0.0-0.1 N - XR ABDOMEN 1 [id number] 05:02:00 FAX: Maria Teresa Lynne MD [phone] [place]: St: ADM FAX: Nikos Arizmendi MD [phone] Name: DIANELAVONNE [facility] : 1960 Age/S: 57/M [address] Unit #: [id number] Loc: C.3316 [place] [address] Phys: Nikos Barney MD Acct: [id number] Dis Date: Status: ADM IN PHONE #: [phone] Exam Date: 08/11/2018 0332 FAX #: [phone] Reason: SBO EXAMS: CPT CODE: [id number] XR ABDOMEN 1 V 33829 Location: U19. ABDOMEN, 1 VIEW HISTORY:SBO FINDINGS: The small bowel loops are distended and organized. Air is also noted throughout the colon. Arthrodesis with a single screw of the left SI joint. Mild lower lumbar spondylosis. IMPRESSION: Continued small bowel obstruction possibly partial, similar to prior CT on 08/10/18. Nasogastric tube within the stomach. E lectronically Signed by Adrienne Tucker MD on at 0502 Reported and signed by: Adrienne Carballo MD CC: Maria Teresa Gottlieb MD; Nikos Barney MD Technologist: JORGE ALBERTO WHITLOCK (R); CHRISTA GOLDEN Date/Time/By: 08/11/2018 (7217) : By: [email or web address] PAGE 1 Signed Report FAX: Maria Teresa Lynne MD [phone] [place]: St: ADM FAX: Nikos Arizmendi MD [phone] Name: LAVONNE CONTRERAS [facility] : 1960 Age/S: 57/M [address] Unit #: [id number] Loc: C.3316 [place] [address] Phys: Nikos Barney MD Acct: [id number] Dis Date: Status: ADM IN PHONE #: [phone] Exam Date: 08/11/2018 0332 FAX #: [phone] Reason: SBO EXAMS: CPT CODE: [id number] XR ABDOMEN 1 V 71554 < Continued> Orig Print D/T: S: 08/11/2018 (1980) PAGE 2 Signed Report - XR CHEST 1 [id number] 03:21:00 FAX: Maria Teresa Lynne MD [phone] [place]: St: ADM Name: LAVONNE BAEZA Charly : [birth year] Age/S: 57/M [address] Unit #: [id number] Loc: C.3316 [place] [address] Phys: Maria Teresa Gottlieb MD Acct: [id number] Dis Date: Status: ADM IN PHONE #: [phone] Exam Date: 08/11/2018257 FAX #: [phone] Reason: NGT INSERTION VERIFICATION EXAMS: CPT CODE: [id number] XR CHEST 1 V 92478 EXAM: - XR CHEST 1 V HISTORY: NG tube placement. COMPARISON: May 09, 2018. FINDINGS: Single AP view of the chest is provided. Nasogastric tube is in the stomach. Heart size and vascularity are within normal limits. Hypoinflation lungs. The lungs are clear of focal co nsolidation. No effusion, pneumothorax, or acute osseous abnormality. IMPRESSION: NG tube is in the stomach. at 0321 Reported and signed by: Jon Walden MD CC: Joe Gottlieb MD Technologist: JORGE ALBERTO HUERTA DD RT (R); CHRISTA GOLDEN PAGE 1 Nadiya d Report FAX: Maria Teresa Lynne MD [place]: St: ADM Name: LAVONNE CONTRERAS [facility] Luis Eduardo [facility]aker : 1960 Age/S: 57/M [address] Unit #: [id number] Loc: C.3316 [place] [address] Phys: Maria Teresa Gottlieb MD Acct: [id number] Dis Date: Status: ADM IN PHONE #: [phone] Exam Date: 08/11/2018257 FAX #: [phone] Reason: NGT INSERTION VERIFICATION EXAMS: CPT CODE: [id number] XR CHEST 1 V 47846 < Continued> Trnscrd Date/Time/By: 08/11/2018 (0325) : By: [email or web address] PAGE 2 Signed Report UA RFLX MICR CULT IF [id number] 01:18:00* Test Item Value Reference Range Interpretation Comments UA COLOR (test code = COLU) Yellow Yellow UA APPEARANCE (test code = APPU) Slightly-Cloudy Clear UA GLUCOSE DIPSTICK (test code = DGLUU) Negative Negative UA BILIRUBIN DIPSTICK (test code = BILU) Negative Negative UA KETONE DIPSTICK (test code = KETU) Negative mg/dL Negative UA SPECIFIC GRAVITY (test code = SGU) >1.060 <1.030 A UA BLOOD DIPSTICK (test code = MERARY) 1+ Negative A UA PH DIPSTICK (test code = JAISON) 5.0 5.0-8.0 UA PROTEIN DIPSTICK (test code = PROU) 30 (1+) mg/dL Negative A UA UROBILINOGEN DIPSTICK (test code = URO) Negative mg/dL Negative UA NITRITE DIPSTICK (test code = NOEL) Negative Negative UA LEUKOCYTE ESTERASE DIPSTICK (test code = LEUU) 1+ Nega tive A UA WBC (test code = WBCUR) 21-30 /HPF <4-5 A > 10 WBC/HPF = PYURIA PRESENT URINE CULTURE PROCESSED UA RBC (test code = RBCU) 11-20 /HPF <4-5 A UA BACTERIA (test code = BACU) 2+ /HPF None-Rare A UA SQUAMOUS CELLS (test code = SQU) 16-25 (MODERATE) /HPF 0-5 (RARE ) A UA MUCUS (test code = MUCU) 4+ /LPF <Rare A less than 18 yrs old, neutropenic, or urological surgery? NOPrimary Indication f or Culture: OtherOther Indication: APROCALCITONIN (PCT)2018-08-11 00:39:00* Test Item Value Reference Range Interpretation Comments PROCALCITONIN (PCT) (test code = PROCAL) < 0.05 NG/ML (PCT) Normal Value: <0.05 NG/ML <0.5 NG/ML - low risk of severe sepsis and/or septic shock>2.0 NG/ML - high risk of severe sepsis and/or septic shock PCT concentrations between 0.5 and 2.0 NG/ML should beinterpreted taking into account the patient's history.It is recommended to retest PCT within 6-24 hours if anyconcentrations between 0.5-2.0 NG/ML are obtained. BASIC METABOLIC [id number] 00:15:00* Test Item Value Reference Range Interpretation Comments SODIUM (test code = NA) 138 mmol/L 137-145 N POTASSIUM (test code = K) 4.0 mmol/L 3.4-5.0 N CHLORIDE (test code = CL) 104 mmol/L 98-107 N CARBON DIOXIDE (test code = CO2) 24 mmol/L 22-30 N GLUCOSE (test code = GLU) 103 mg/dL 74-106 N BLOOD UREA NITROGEN (test code = BUN) 15 mg/dL 9-20 N GLOMERULAR FILTRATION RATE (test code = GFR) >=60 max estimate >60 The estimated glomerular filtration rate is computed usingpatient race, age (>18), sex, and serum creatinine. If anyof the needed data elements are missing the Laboratory cannot compute an estimation of the glomerular filtration rate. CREATININE (test code = CREAT) 1.0 mg/dL 0.7-1.3 N CALCIUM (test code = CA) 9.3 mg/dL 8.4-10.2 N LIVER FUNCTION [id number] 00:15:00* Test Item Value Reference Range Interpretation Comments TOTAL PROTEIN (test code = PROT) 7.1 g/dL 6.3-8.2 N ALBUMIN (test code = ALB) 4.2 g/dL 3.5-5.0 N BILIRUBIN TOTAL (test code = BILT) 0.6 mg/dL 0.2-1.3 N BILIRUBIN CONJUGATED (test code = BILCON) 0 mg/dL 0-0.3 N ~~~~~~~~~~~~~~~~~~~~~~~~~~~~~~~~~~~~~~~~~~~~~~~~~~~~~~~~~~~~CONJUGATED BILIRUBIN IS THE REPLACEMENT ASSAY FOR DIRECTBILIRUBIN.~~~~~~~~~~~~~~~~~~~~~~~~~~~~~~~~~~~~~~~~~~~~~~~~~~~~~~~~~~~~ BILIRUBIN UNCONJUGATED (test code = BILUNC) 0.1 mg/dL 0-1.1 N SGOT/AST (test code = AST) 31 U/L 15-46 N SGPT/ALT (test code = ALT) 40 U/L 13-69 N ALKALINE PHOSPHATASE (test code = ALKP) 95 U/L 38-126 N [id number] 00:15:00* Test Item Value Reference Range Interpretation Comments LIPASE (test code = LIP) 133 U/L 23-300 N PROTHROMBIN [id number] 00:12:00* Test Item Value Reference Range Interpretation Comments PROTHROMBIN TIME PATIENT (test code = PTP) 12.5 SECONDS 9.2-12.1 H INTERNATIONAL NORMAL RATIO (test code = INR) 1.1 The INR is to be used only for monitoring ORAL ANTICOAGULANTTHERAPY. Indication INR Value1. Prophylaxis/treatment of: Venous Thrombosis, Pulmonary Embolism 2.0 - 3.02. Prevention of systemic embolism from: Tissue heart valves 2.0 - 3.0 Acute myocardial infarction (to present systemic embolism)* 2.0 - 3.0 Valvular heart disease 2.0 - 3.0 Atrial fibrillation 2.0 - 3.03. Mechanical prosthetic valves (high risk) 2.5 - 3.5 * If oral anticoagulant therapy is elected to preventrecurrent myocardial infarction, an INR of 2.5-3.5 isrecommended, consistent with Food and Drug Administrationrecommendations. CBC W/AUTO [id number] 00:00:00* Test Item Value Reference Range Interpretation Comments WHITE BLOOD CELL (test code = WBC) 7.8 x10 3/uL 5.0-12.0 N RED BLOOD CELL (test code = RBC) 5.70 x10 6/uL 4.70-6.10 N HEMOGLOBIN (test code = HGB) 17.0 g/dL 14.0-18.0 N HEMATOCRIT (test code = HCT) 52.0 % 37.0-49.0 H MEAN CELL VOLUME (test code = MCV) 91 fL 80-94 N MEAN CELL HGB (test code = MCH) 29.8 pg 27-31 N MEAN CELL HGB CONCENTRATION (test code = MCHC) 32.7 g/dL 33-37 L RED CELL DISTRIBUTION WIDTH (test code = RDW) 13.3 % 11.5-15. 5 N PLATELET COUNT (test code = PLT) 198 x10 3/uL 130-400 N MEAN PLATELET VOLUME (test code = MPV) 9.4 fL 9.4-16.4 N NEUTROPHIL % (test code = NT%) 69.1 % 43-65 H IMMATURE GRANULOCYTE % (test code = IG%) 0.5 % 0.0-2.0 N LYMPHOCYTE % (test code = LY%) 19.4 % 20.5-45.5 L MONOCYTE % (test code = MO%) 8.6 % 5.5-11.7 N EOSINOPHIL % (test code = EO%) 1.5 % 0.9-2.9 N BASOPHIL % (test code = BA%) 0.9 % 0.2-1.0 N NUCLEATED RBC % (test code = NRBC%) 0.0 % 0-1.0 N NEUTROPHIL # (test code = NT#) 5.39 x10 3/uL 2.2-4.8 H IMMATURE GRANULOCYTE # (test code = IG#) 0.04 x10 3/uL 0-0.03 H LYMPHOCYTE # (test code = LY#) 1.51 x10 3/uL 1.3-2.9 N MONOCYTE # (test code = MO#) 0.67 x10 3/uL 0.3-0.8 N EOSINOPHIL # (test code = EO#) 0.12 x10 3/uL 0.0-0.2 N BASOPHIL # (test code = BA#) 0.07 x10 3/uL 0.0-0.1 N - CT ABD PELVIS [id number] 23:42:00 [place]: St: REG Name: LAVONNE HEALY : 2 Age/S: 57/M [address] Unit: [id number] Loc: [place] [address] Phys: Jim Brito MD Acct: [id number] Dis Date: Status: REG ER PHONE #: [phone] Exam Date: 08/10/2018 7984 FAX #: [phone] Reason: abd pain EXAMS: CPT CODE: [id number] CT ABD PELVIS W/CONT 53132 Exam: CT abdomen and pelvis with contrast. Location: F6 History: abd pain Technique: Enhanced spiral slices were taken from the domes of the diap hragm, through the pubic symphysis. Coronal reformations were performed. 1 00 cc of Isovue-300 were used. One or more of the following dose reductio n techniques were used: Automated exposure control, adjustment of the mA a nd/or kV according to patient size, and/or utilization of iterative recons truction technique. Findings: Postoperative changes are note d in the abdomen. Numerous loops of dilated small intestine are seen throu ghout the jejunum and proximal ileum. A transition point is present in the mid lower abdomen. The remainder of the small and large intestine are nor mal in caliber. The liver is of normal, homogeneous density. No ma ss is seen. The intra-and extrahepatic biliary tree is normal. The hepatic and portal veins are patent. The gallbladder has been removed. The pancre as is normal. The pancreatic duct is normal in caliber. The spleen and adrenal glands are normal in size and shape. The kidneys are un remarkable. No nephrolithiasis, perinephric fluid collections or hydroneph rosis is seen. No lymphadenopathy or free fluid is found in the ab domen or the pelvis. A penile prosthesis is noted. The pelvi c structures are otherwise unremarkable. The lung bases are clear. No incidental findings are noted. Impressio n: 1. Findings in keeping with a mechanical small bowel obstruction with a transition point in the mid lower abdomen. 2. Status post cho lecystectomy. 3. Otherwise unremarkable exam. PAGE 1 Signed Report (CONTINUED) [place]: St: REG Name: LAVONNE CONTRERAS : 1960 Age/S: 57/M [address] Unit: [id number] Loc: [place] [address] Phys: Jim Brito MD Acct: [id number] Dis Date: Status: REG ER PHONE #: [phone] Exam Date: 08/10/2018 2320 FAX #: [phone] Reason: abd pain EXAMS: CPT CODE: [id number] CT ABD PELVIS W/CONT 20334 <Continued> at 2342 Reported and signed by: Michael Randle CC: Technologist: Monica Bobo Trnscrd Dt/Tm: 08/10/2018 (2043) Puneet Orig Print D/T: S: 08/10/2018 (2116 PAGE 2 Signed Report BEDSIDE CREATININE 2018-08-10 23:25:00* Test Item Value Reference Range Interpretation Comments BEDSIDE CREATININE (test code = CREATBED) 0.9 mg/dL 0.66-1.25 N LACTIC ACID [id number] 23:13:00* Test Item Value Reference Range Interpretation Comments LACTIC ACID POC (test code = LACTP) 1.67 mmol/L 0.7-2.0 N
--- OUTSIDE RECORDS SUMMARY | 2020-03-18 17:15 | XMS REPORT | Continuity of Care Document ---
Author Author [facility] t Organization [facility] Address [address] [place] [address] Phone Unavailable Care Team Providers Care Auto Tech Name Role Phone Asked, Pcp No PCP Unavailable MIKE DON Attphys Unavailable Roxanne PRETTY, Mario Alberto Godwin Attphys [phone] Booker PRETTY, Krunal Torres Attphys [phone] Payers Payer Name Policy Type Policy Number Effective Date Expiration Date S scotty [facility] MEDICAREAARP MEDICARE ADVANTAGE PLAN HMO-POS ([id number] 2019-PresentHMO [id number] 2019 00:00 :00 Adiel [facility] Problems This patient has no known problems. Allergies, Adverse Reactions, Alerts Allergy Name Allergy Type Status Severity Reaction(s) Onset Date Inacti ve Date Treating Clinician Comments Source Iodinated Contrast Media DA Active U 2020-01-21 00:00:00 [facility] No Known Allergies DA Active U 2020-01-21 00:00:00 [facility] No Known Allergies DA Active U 2019-11-10 00:00:00 [facility] morphine DA Active MO 2019-10-15 00:00:00 [facility] morphine DA Active MO 2019-07-29 00:00:00 [facility] morphine DA Active MO 2019-02-10 00:00:00 [facility] morphine DA Active MO 2019-01-13 00:00:00 [facility] morphine DA Active MO 2018-10-07 00:00:00 [facility] morphine DA Active MO 2018-10-06 00:00:00 [facility] CHLORHEXEDINE GLUCONATE WIPES DA Active UT 2018-09-10 00:0 0:00 [facility] morphine DA Active MO 2018-08-13 00:00:00 [facility] Morphine Propensity to adverse reactions to drug Active Itching 2018-04-28 00:00:00 Adiel Chan t morphine DA Active UT 2018-04-28 00:00:00 [facility] No Known Allergies DA Active U 2018-04-28 00:00:00 [facility] No Known Allergies DA Active U 2015-12-16 00:00:00 [facility] Social History Social Habit Start Date Stop [...] MG tablet 2019-07-13 00:00:00 Ye s 4mg [id number] Take 4 mg by mouth 3 (three) [...] URINE CULTURE 2019-08-25 11:33:00 ИринаMere Sarah Chun [facility] URINALYSIS SCREEN AND MICROSCOPY, WITH REFLEX TO CULTURE 202 11:14:00 ИринаMere Sarah Chun [facility] HC COMPLETE BLD COUNT W/AUTO DIFF 2019-08-25 10:43:00 ИринаWilmer ujose franciscomalik Sarah [place] [facility] COMPREHENSIVE METABOLIC PANEL 2019-08-25 10:43:00 ИринаAlexis sophie Smith [place] [facility] ESTIMATED GFR 2019-08-25 10:43:00 Ирина Mere [facility] L[facility] CT RENAL STONE PROTOCOL 2019-06-27 19:06:29 Pearl Hsu URINE CULTURE 2019-06-27 17:47:00 JsoeMaximo Cristiane Chun [facility] HC COMPLETE BLD COUNT W/AUTO DIFF 2019-06-27 17:30:00 Luz Terrell se COMPREHENSIVE METABOLIC PANEL 2019-06-27 17:30:00 Bobby Terrell LIPASE LEVEL 2019-06-27 17:30:00 Bobby Terrell on [facility] ESTIMATED GFR 2019-06-27 17:30:00 Jose, Maximo Cristiane [facility]un [facility] URINALYSIS SCREEN AND MICROSCOPY, WITH REFLEX TO CULTURE 202 16:45:00 Bobby Terrell Plan of Care Planned Activity Planned Date Details Comments Source Future Scheduled Test 2019-12-05 00:00:00 INFLUENZA VACCINE [code = INFLUENZA VACCINE] [place] [facility] Future Scheduled Test 2011-10-21 00:00:00 COLONOSCOPY SCREEN ING [code = COLONOSCOPY SCREENING] [facility] Future Scheduled Test 2011-10-21 00:00:00 SHINGLES VACCINES (#1) [code = SHINGLES VACCINES (#1)] Chun [facility] Encounters Start Date/Time End Date/Time Encounter Type Admission Type Attendi [facility] Care Department Encounter ID Source 2019-08-25 00:00:00 2019-08-25 00:00:00 Emergency ROXANNE, Nick EIL-ISSAC [facility] [id number] [facility] 2019-06-27 00:00:00 2019-06-27 00:00:00 Emergency BOBBY TERRELL [id number] [facility] 2018-08-13 15:15:00 2018-08-13 15:15:00 Emergency E [facility]NE [facility] Results Test Description Test Time Test Comments Results Result Comments Source B-TYPE NATRIURETIC PEPTIDE 2020-03-18 13:27:00 Test Item B-TYPE NATRIURETIC PEPTIDE (test code = BNP) 36.0 PG/ML 0-100 N - CT ABD PELVIS W/O [id number] 13:25:00 [facility] SANEGETHA WALLACEName: LAVONNE CONTRERAS : 1960 Sex: M Name: LAVONNE CONTRERAS [facility] [place] : 1960 Age/S: 59 / M [address] [place] [address] Unit #: [id number] Loc: [place] [address] Phys: Thom Bliss Acct: [id number] Dis Date: Status: REG ER PHONE #: [phone] Exam Date: 03/18/2020 1301 FAX #: [phone] Reason: flank kacie n, fever, vomiting EXAMS: CPT CODE: [id number] CT ABD PELVIS W/O CONT 39294 PROCEDURE: CT ABDOMEN AND PELVIS WITHOUT CONTRAST ( RENAL STONE CT) INDICATION: flank pain, fever, vomiting; 59-year-o ld male with history of recent bladder procedure, timing not specified. COMPARISON: CT abdomen and pelvis without contrast 01/21/2020, 01/01/2020 TECHNIQUE: Noncontrasted helical [facility] the symphysis as a renal stone [...] 1 Signed Report (CONTINUED) Name: LAVONNE CONTRERAS [facility] : 1960 Age/S: 59 / M [address] [place], [place] [address] Unit #: [id number] Loc: [place] [address] Ph s: RuthyThom RUIZ Acct: [id number] Dis Date: Status: REG ER PHONE #: [phone] Exam Date: 03/18/2020 1301 FAX #: [phone] Reason: flank pain, fever, vomiting EXAMS: CPT CODE: [id number] CT ABD PELVIS W/O CONT 01422 <Continued> APPENDIX: Surgically absent PERITONEUM: There is [...] Signed Report (CONTINUED) Name: CAT JUDITHLAVONNE ORTIZ [facility] : [birth year] Age/S: 59 / M [address] [place] [address] Unit #: [id number] Loc: [place] [address] Phys: Thom Bliss Acct: [id number] Dis Date: Status: REG ER PHONE #: [phone] Exam Date: 03/18/2020 1301 FAX #: [phone] R rashaun: flank pain, fever, vomiting EXAMS: CPT CODE: [id number] CT ABD PELVIS W/O CONT 15091 <Continued> 5. Other chronic nonemergent findings as above. SL: [id number] at 1325 Reported and signed by: Dru Rodriguez M.D. CC: Bassam Fajardo DO; Tony Espinal DO; Thom RUIZ Technologist:Shania Krnavek, RT(R)(CT) CTDI: DLP: Trnscb Date/Time: 03/18/2020 (0570) [email or web address] Orig Print D/T: S: 03/18/2020 (7343) PAGE 3 Signed Report COMPREHENSIVE METABOLIC [id number] 13:23:00* Test Item Value Reference Range Interpretation [...] code = ALKP) 139 IUnit/L 20-125 H [id number] 13:22:00* Test Item Value Reference Range Interpretation Comments TROPONIN-I (test code = TROPI) < 0.006 ng/mL 0.000-0.045 N Negative: <= 0.045 Positive: >= 0.046 Correlation with serial results, other cardiac markers andclinical findings is necessary to determine the clinicalsignificance of this result. Results using different methodologies should not be comparedto one another as quantitative results may vary by method. LACTIC [id number] 13:13:00* Test Item Value Reference Range Interpretation Comments LACTIC ACID (test code = LACT) 1.9 mmol/L 0.4-1.9 N CBC W/AUTO [id number] 13:05:00* Test Item Value Reference Range Interpretation [...] (test code = MDIFF) NO CBC W/AUTO [id number] 13:01:00* Test Item Value Reference Range Interpretation [...] = MDIFF) UA RFLX MICR CULT IF [id number] 11:57:00* Test Item Value Reference Range Interpretation [...] SEEN Indication for culture: Flank PainSpecimen Description: [facility] 2 [id number] 12:35:00 [facility] 1960 Sex: M [place] [address] Patient Name: LAVONNE CONTRERAS MR #: [id number] : 1960 Age/Sex: 59/M Req #: [id number] [facility] Physician: Dianne copeland by: MIKE DON MD Report #: [id number] Locati on: OR Room/Bed: Procedure: [id number] DX/CHEST 2 VIEWS Exam Date: 03/14/20 Exam [...] OPY TO: MIKE DON MD BASIC METABOLIC [id number] 11:11:00* Test Item Value Reference Range Interpretation [...] CA) 9.0 mg/dL 8.5-10.1 N HEPATIC FUNCTION [id number] 11:11:00* Test Item Value Reference Range Interpretation [...] reference range due to change in reagent. [id number] 11:11:00* Test Item Value Reference Range Interpretation Comments LIPASE (test code = LIP) 210 U/L 73.0-393.0 N LACTIC [id number] 11:11:00* Test Item Value Reference Range Interpretation Comments LACTIC ACID (test code = LACT) 1.3 mmol/L 0.4-1.9 N BASIC METABOLIC [id number] 11:01:00* Test Item Value Reference Range Interpretation [...] code = CA) mg/dL 8.5-10.1 HEPATIC FUNCTION [id number] 11:01:00* Test Item Value Reference Range Interpretation [...] TOTAL (test code = ALKP) IUnit/L 45-117 [id number] 11:01:00* Test Item Value Reference Range Interpretation Comments LIPASE (test code = LIP) U/L 73.0-393.0 URINALYSIS [id number] 10:59:00* Test Item Value Reference Range Interpretation [...] FEW #/LPF FEW Urine Source? Clean CatchURINALYSIS [id number] 10:57:00* Test Item Value Reference Range Interpretation [...] HPF NONE Urine Source? Clean CatchCBC W/O [id number] 10:56:00* Test Item Value Reference Range Interpretation [...] 6.7-11.0 N - CT ABD PELVIS W/O [id number] 10:29:00 Name: LAVONNE CONTRERAS [facility] : 1960 Age/S: 59 / M [address] [facility] Unit #: [id number] Loc: [place] [address] Phys: Katelyn Daigle NP Acct: [id number] Dis Date: Status: REG ER PHONE #: [phone] Exam Date: 01/21/2020 1001 FAX #: [phone] Reason: L flank pain EXAMS: CPT CODE: [id number] CT ABD PELVIS W/O CONT 79883 REASON FOR EXAM: L flank pain EXAM [...] 1 Signed Report (CONTINUED) Name: LAVONNE CONTRERAS [facility] : 1960 Age/S: 59 / M [address] [facility] Unit #: [id number] Loc: [place] [address] Phys: Katelyn Daigle STOCK WETTER Acct: [id number] Dis Date: S tatus: REG ER PHONE #: [phone] Exam Da te: 01/21/2020 1001 FAX #: [phone] Reason: L flan k pain EXAMS: CPT CODE: [id number] CT ABD PELVIS W/O CONT 06376 <Continued> right upper abdomen () and are [...] unchanged from the previous e xam. Location: [facility] at 1029 Reported and signed by: Joe Vu MD CC: Katelyn Daigle NP; TONY ESPINAL Technologist:Tashia Odonnell,RT(R),CT CTDI: DLP: Tr nscb Date/Time: 01/21/2020 (1029) t.SDR.[email or web address] Orig Print D/ T: S: 01/21/2020 (1522) PAGE 2 Signed Report UA RFLX MICR CULT IF [id number] 10:41:00* Test Item Value Reference Range Interpretation [...] URINE: VOIDEDIndication for culture: Flank PainBASIC METABOLIC [id number] 10:24:00* Test Item Value Reference Range Interpretation [...] CA) 8.8 mg/dL 8.4-10.2 N LIVER FUNCTION [id number] 10:24:00* Test Item Value Reference Range Interpretation [...] code = ALKP) 71 U/L 38-126 N [id number] 10:24:00* Test Item Value Reference Range Interpretation Comments LIPASE (test code = LIP) 235 U/L 23-300 N - CT ABD PELVIS W/O [id number] 10:13:00 [place]: St: REG Name: LAVONNE HEALY [facility] : 2 Age/S: 59/M [address] Unit: [id number] Loc: [place] [address] Phys: Kerry Navas ANP Acct: [id number] Dis Date: Status: REG ER PHONE #: [phone] Exam Date: 01/01/2020 0955 FAX #: [phone] Reason: LEFT FLANK PAIN EXAMS: CPT CODE: [id number] CT ABD PELVIS W/O CONT 03670 HISTORY: Left flank pain, kidney problems. CT [...] s: CAT St: REG Name: LAVONNE CONTRERAS [facility] : 1960 Age/S: 59/M [address] Unit: [id number] Loc: [place] [address] Ph ys: Kerry Navas Acct: C [id number] Dis Date: Status: REG ER PHONE #: [phone] Exam Date: 01/01/2020 0907 FAX #: [phone] Reason: LEFT FLANK PAIN EXAMS: CPT CODE: [id number] CT ABD PELVIS W/O CONT 15584 <Continued> change. Old trauma of the SI [...] U19 at 1013 Reported and signed by: oTny Morales M.D. CC: Technologist: Harleen Meier; FINESSE MUKHERJEE Trnscrd Dt/Tm: 01/01/2020 (1013) [email or web address] Orig Print D/T: S: 01/01/2020 (1017 PAGE 2 Signed Report CBC W/AUTO [id number] 10:03:00* Test Item Value Reference Range Interpretation [...] 0.08 x10 3/uL 0.0-0.1 N CARDIAC ENZYMES [id number] 22:47:00* Test Item Value Reference Range Interpretation [...] is used.~~~~~~~~~~~~~~~~~~~~~~~~~~~~~~~~~~~~~~~~~~~~~~~~~~~~~~~~~~~ UA RFLX MICR CULT IF [id number] 22:22:00* Test Item Value Reference Range Interpretation [...] CHD)40-59mg/dL: Borderline Risk LDL Cholesterol<100mg/dL: Desirable LDL-C -379kh/dL: Borderline High Risk LDL-C zhuenipswloel403-340oy/dL: High risk LDL-C concentration HDL-LDL Cholesterol is affected by a number of factors suchas smoking, age and sex.~~~~~~~~~~~~~~~~~~~~~~~~~~~~~~~~~~~~~~~~~~~~~~~~~~~~~~~~~~~~ [id number] 18:52:00* Test Item Value Reference Range Interpretation Comments MAGNESIUM (test code = MAG) 2.2 mg/dL 1.6-2.3 N CARDIAC ENZYMES [id number] 18:44:00* Test Item Value Reference Range Interpretation [...] valid only if similarmethodology is used.~~~~~~~~~~~~~~~~~~~~~~~~~~~~~~~~~~~~~~~~~~~~~~~~~~~~~~~~~~~ LACTIC [id number] 18:33:00* Test Item Value Reference Range Interpretation Comments LACTIC ACID (test code = LACT) 2.0 mmol/L 0.7-2.0 N - CT ABD PELVIS [id number] 16:39:00 [place]: St: REG Name: LAVONNE HEALY [facility] [place] : 2 Age/S: 59/M [address] Unit: [id number] Loc: [place] [address] Phys: Jim Brito MD Acct: [id number] Dis Date: Status: REG ER PHONE #: [phone] Exam Date: 11/10/2019 1630 FAX #: [phone] Reason: left abd pain EXAMS: CPT CODE: [id number] CT ABD PELVIS W/CONT 41404 CT Abdomen and Pelvis with contrast. Location: [...] to account fo r patient's symptoms. at 1637 Reported and signed by: Mike Forbes MD CC: Technmaisha gist: JAYRO AGUILAR; Hannah Ford [facility] Dt/Tm: 11/2019 (5712) ThomasR.RB24 Orig Print D/T: S: 11/10/2019 ( 0772 PAGE 1 Signed Report LACTIC [id number] 14:26:00* Test Item Value Reference Range Interpretation Comments LACTIC ACID (test code = LACT) 3.1 mmol/L 0.7-2.0 HH Critical Value reported toFirst Name:[id number] Last Name:RESULTS READ BACK AND VERIFIEDby NURIA, on 11/10/19, @ 9041. BASIC METABOLIC [id number] 14:04:00* Test Item Value Reference Range Interpretation [...] CA) 8.6 mg/dL 8.4-10.2 N LIVER FUNCTION [id number] 14:04:00* Test Item Value Reference Range Interpretation [...] code = ALKP) 117 U/L 38-126 N [id number] 14:04:00* Test Item Value Reference Range Interpretation Comments LIPASE (test code = LIP) 438 U/L 23-300 H NT PRO-BRAIN NATRIURETIC [id number] 14:04:00* Test Item Value Reference Range Interpretation Comments NT PRO-BRAIN NATRIURETIC PEPTI (test code = PROBNP) 22.0 pg/mL 0- 299 N ~~~~~~~~~~~~~~~~~~~~~~~~~~~~~~~~~~~~~~~~~~~~~~~~~~~~~~~~~~~~NT PRO-BNP IS THE REPLACEMENT ASSAY FOR BNP.~~~~~~~~~~~~~~~~~~~~~~~~~~~~~~~~~~~~~~~~~~~~~~~~~~~~~~~~~~~~RULE-IN CUT POINTS FOR PATIENTS WITH SUSPECTED ACUTECONGESTIVE HEART FAILURE:<50 yrs old: >450 pg/mL50-75 yrs old: >900 pg/mL>75 yrs old: >1800 pg/mLA positive bias may occur on patients taking BIOTINsupplements. COVID 19 INHOUSE [id number] 14:04:00* Test Item Value Reference Range Interpretation Comments COVID 19 INHOUSE AG (test code = [id number]) NEGATIVE Negative BASIC METABOLIC [id number] 13:55:00* Test Item Value Reference Range Interpretation [...] CA) 8.6 mg/dL 8.4-10.2 N LIVER FUNCTION [id number] 13:55:00* Test Item Value Reference Range Interpretation [...] code = ALKP) 117 U/L 38-126 N [id number] 13:55:00* Test Item Value Reference Range Interpretation Comments LIPASE (test code = LIP) 438 U/L 23-300 H NT PRO-BRAIN NATRIURETIC [id number] 13:55:00* Test Item Value Reference Range Interpretation Comments NT PRO-BRAIN NATRIURETIC PEPTI (test code = PROBNP) pg/mL 0- 299 BASIC METABOLIC [id number] 13:54:00* Test Item Value Reference Range Interpretation [...] CA) 8.6 mg/dL 8.4-10.2 N LIVER FUNCTION [id number] 13:54:00* Test Item Value Reference Range Interpretation [...] code = ALKP) 117 U/L 38-126 N [id number] 13:54:00* Test Item Value Reference Range Interpretation Comments LIPASE (test code = LIP) U/L 23-300 NT PRO-BRAIN NATRIURETIC [id number] 13:54:00* Test Item Value Reference Range Interpretation Comments NT PRO-BRAIN NATRIURETIC PEPTI (test code = PROBNP) pg/mL 0- 299 PROTHROMBIN [id number] 13:40:00* Test Item Value Reference Range Interpretation [...] with Food and Drug Administrationrecommendations. THROMBOPLASTIN TIME [id number] 13:40:00* Test Item Value Reference Range Interpretation Comments THROMBOPLASTIN TIME PARTIAL (test code = PTT) 24.8 SECONDS 23.4-37. 0 N Therapeutic Range for Heparin EFFECTIVE 11/12/12 Heparin IU/mL aPTT Seconds0.3 64.30.7 88.8 CBC W/AUTO [id number] 13:30:00* Test Item Value Reference Range Interpretation [...] 0.06 x10 3/uL 0.0-0.1 N TROPONIN I [id number] 13:17:00* Test Item Value Reference Range Interpretation [...] similarmethodology is used. - XR CHEST 1 [id number] 12:47:00 [place]: St: REG Name: Milli MACIASLAVONNEShad BOSWELL [facility] : [birth year] Age/S: 59/M [address] Unit #: [id number] Loc: [place] [address] Phys: Jim Brito MD Acct: [id number] Dis Date: Status: REG ER PHONE #: [phone] Exam Date: 11/10/2019 5402 FAX #: [phone] Reason: sob EXAMS: CPT CODE: [id number] XR CHEST 1 V 70633 EXAM: CHEST ONE VIEW INDICATION: Shortness of [...] LEIDY GRANADOS RT (R) Trnscrd Date/Time/By: 11/10/2019 (4095) : By: Tanna PRETTY16 PAGE 1 Signed Report [place]: St: REG Name: DIANELAVONNE BOSWELL [facility] : 1960 Age/S: 59/M [address] Unit #: [id number] Loc: [place] [address] Phys: Rafi Brito MD Acct: [id number] Dis Date: Status: REG ER PHONE #: Exam Date: 11/10/2019 1251 FAX #: Reason: sob EXAMS: CPT CODE: [id number] XR CHEST 1 V 11413 <Continued> Orig Print D/T: S: 11/10/2019 (3452) PAGE 2 Signed Report VITAMIN [id number] 18:08:00* Test Item Value Reference Range Interpretation Comments VITAMIN B12 (test code = VITB12) 176 pg/mL 193-986 L THYROID PROFILE [id number] 18:08:00* Test Item Value Reference Range Interpretation [...] : < 0.35 mIU/mL VIT B1 WHOLE [id number] 18:08:00* Test Item Value Reference Range Interpretation Comments VIT B1 WHOLE BLOOD (test code = ZCOT0SY) 119.4 nmol/L 66.5-200.0 Performed At: [address] [id number] Sanjai MD Ph:[phone] AB HIV 1 15:11:00* Test Item Value Reference Range Interpretation Comments AB HIV 1 2 (test code = TME65RC) Nonreactive NonReactive It is recognized that currently available assays for thedetection of antibodies to HIV-1 and/or HIV-2 may notdetect all infected individuals. A negative test result doesnot exclude the possibility of exposure to or infection withHIV. HIV antibodies may be undetectable in some stages ofthe infection and in some clinical conditions. VITAMIN [id number] 07:50:00* Test Item Value Reference Range Interpretation Comments VITAMIN B12 (test code = VITB12) 176 pg/mL 193-986 L THYROID PROFILE [id number] 07:50:00* Test Item Value Reference Range Interpretation [...] : < 0.35 mIU/mL VIT B1 WHOLE [id number] 07:50:00* Test Item Value Reference Range Interpretation Comments VIT B1 WHOLE BLOOD (test code = ECOY4NQ) nmol/L 87-280 - CTA CHEST FOR [id number] 11:19:00 Name: LAVONNE CONTRERAS [facility] : 1960 Age/S: 59 / M [address] Unit #: [id number] Loc: [place] [address] Phys: Laurent Fletcher MD Acct: [id number] Dis Date: Status: ADM IN PHONE #: [phone] Exam Date: 11/01/2019 1057 FAX #: [phone] Reason: Shortness of breath / Lung disease EXAMS: CPT CODE: [id number] [place] [address] HISTORY: Shortness of breath. COMPARISON: CTA chest [...] PA GE 1 Signed Report THROMBOPLASTIN TIME [id number] 11:06:00* Test Item Value Reference Range Interpretation Comments THROMBOPLASTIN TIME PARTIAL (test code = PTT) 44.8 seconds 23.0-37. 0 H IS PATIENT ON ANTICOAGULANTS? YLIST ANTICOAGULANTS HEPARINSPECIMEN COMMENTS: PLEASE DRAW AT 10:55COMMENTS TO WORKFORCE MANAGEMENT COORDINATOR: PLEASE DRAW AT 10:55COMPREHENSIVE METABOLIC [id number] 11:05:00* Test Item Value Reference Range Interpretation [...] reference range due to change in reagent. [id number] 11:05:00* Test Item Value Reference Range Interpretation Comments LIPASE (test code = LIP) 235 U/L 73.0-393.0 N [id number] 11:05:00* Test Item Value Reference Range Interpretation Comments TROPONIN-I (test code = TROPI) <0.015 ng/mL 0-0.045 N COMPREHENSIVE METABOLIC [id number] 10:58:00* Test Item Value Reference Range Interpretation [...] TOTAL (test code = ALKP) IUnit/L 45-117 [id number] 10:58:00* Test Item Value Reference Range Interpretation Comments LIPASE (test code = LIP) U/L 73.0-393.0 CBC W/AUTO [id number] 10:30:00* Test Item Value Reference Range Interpretation [...] NRBC#) 0.00 K/mm3 0.0-0.1 N THROMBOPLASTIN TIME [id number] 03:48:00* Test Item Value Reference Range Interpretation Comments THROMBOPLASTIN TIME PARTIAL (test code = PTT) 110.0 seconds 23.0-37 .0 HH Results called to [id number] by MADELAINEJMJ1 11/01/19 0348Critical results verified and read back by Nurse? Y IS PATIENT ON ANTICOAGULANTS? YLIST ANTICOAGULANTS HEPARINTHROMBOPLASTIN TIME [id number] 01:07:00* Test Item Value Reference Range Interpretation Comments THROMBOPLASTIN TIME PARTIAL (test code = PTT) 82.7 seconds 23.0-37. 0 H IS PATIENT ON ANTICOAGULANTS? YLIST ANTICOAGULANTS HEPARINSPECIMEN COMMENTS: PLEASE DRAW AT 02:28COMMENTS TO WORKFORCE MANAGEMENT COORDINATOR: PLEASE DRAW AT 02:28TROPONIN-I 2019-10-31 22:03:00* Test Item Value Reference Range Interpretation Comments TROPONIN-I (test code = TROPI) <0.015 ng/mL 0-0.045 N COMMENTS TO WORKFORCE MANAGEMENT COORDINATOR: COLLECT 3 HOURS AFTER PREVIOUS [id number] 19:26:00* Test Item Value Reference Range Interpretation Comments TROPONIN-I (test code = TROPI) <0.015 ng/mL 0-0.045 N COMMENTS TO WORKFORCE MANAGEMENT COORDINATOR: COLLECT 3 HOURS AFTER PREVIOUS SAMPLETHROMBOPLASTIN TIME [id number] 19:19:00* Test Item Value Reference Range Interpretation Comments THROMBOPLASTIN TIME PARTIAL (test code = PTT) 25.0 seconds 23.0-37. 0 N IS PATIENT ON ANTICOAGULANTS? YLIST ANTICOAGULANTS HEPARINB-TYPE NATRIURETIC [id number] 12:55:00* Test Item Value Reference Range Interpretation Comments B-TYPE NATRIURETIC PEPTIDE (test code = BNP) 39.16 pgram/mL 0-100 N - XR CHEST 1 [id number] 12:42:00 FAX: Maia Roy [phone] [place]: B St: PRE Name: LAVONNE BAEZA [facility] : [birth year] 63 Age/S: 59/M [address] Unit #: [id number] Loc: [place] [address] Phys: Maia Irvin MD Acct: [id number] Dis Date: Status: PRE ER PHONE #: [phone] Exam Date: 10/31/2019 1225 FAX #: [phone] Reason: SHORTNESS OF BREATH EXAMS: CPT CODE: [id number] XR CHEST 1 V 02401 HISTORY: SHORTNESS OF BREATH TECHNIQUE: AP chest x-ray COMPARISON: 10/15/19 FINDINGS: No airspace consolidation or pleural effusion. Cardio megaly. Mediastinal silhouette is unremarkable. Degenerative changes of th e spine and shoulders. IMPRESSION: No ra diographic evidence of acute cardiopulmonary process. LOCATION: [facility] at 1242 Reported and signed by: Sia Finney D.OAlysa CC: Maia Irvin MD Technologist: Soha Johnson(Joe) Trnscrd Date/Time/By: 10/31/2019 (8770) : By: TannaLDP1 Orig Print D/ T: S: 10/31/2019 (5012) PAGE 1 Si gned Report Coronavirus 2019 nCoV Bedside 2019-10-31 12:39:00* Test Item Value Reference Range Interpretation Comments Coronavirus 2019 nCoV Bedside (test code = WOHKQ74NKSIV) Negative Is patient requiring admission or transfer? YIndication for rapid COVID-19 testi ng: High Clinical SuspicionBASIC METABOLIC [id number] 12:25:00* Test Item Value Reference Range Interpretation [...] code = CA) 9.4 mg/dL 8.5-10.1 N [id number] 12:25:00* Test Item Value Reference Range Interpretation Comments TROPONIN-I (test code = TROPI) <0.015 ng/mL 0-0.045 N CBC W/AUTO [id number] 12:11:00* Test Item Value Reference Range Interpretation [...] NRBC#) 0.00 K/mm3 0.0-0.1 N COMPREHENSIVE METABOLIC [id number] 07:10:00* Test Item Value Reference Range Interpretation [...] due to change in reagent. COMPREHENSIVE METABOLIC [id number] 06:57:00* Test Item Value Reference Range Interpretation [...] code = ALKP) IUnit/L 45-117 CBC W/AUTO [id number] 06:30:00* Test Item Value Reference Range Interpretation [...] code = MDIFF) NO Coronavirus 2019 nCoV [id number] 13:24:00* Test Item Value Reference Range Interpretation Comments Coronavirus 2019 nCoV Bedside (test code = COVNONPUIBED) Negative BASIC METABOLIC [id number] 07:25:00* Test Item Value Reference Range Interpretation [...] This LDL result is a direct measurement.========= [id number] 07:02:00* Test Item Value Reference Range Interpretation Comments TROPONIN-I (test code = TROPI) <0.015 ng/mL 0-0.045 N COMMENTS TO WORKFORCE MANAGEMENT COORDINATOR: COLLECT 3 HOURS AFTER PREVIOUS SAMPLEBASIC METABOLIC [id number] 06:59:00* Test Item Value Reference Range Interpretation [...] code = LDL) mg/dL 100-129 CBC W/AUTO [id number] 06:21:00* Test Item Value Reference Range Interpretation [...] DIFF REQUIRED (test code = MDIFF) NO [id number] 03:52:00* Test Item Value Reference Range Interpretation Comments TROPONIN-I (test code = TROPI) <0.015 ng/mL 0-0.045 N COMMENTS TO WORKFORCE MANAGEMENT COORDINATOR: COLLECT 3 HOURS AFTER PREVIOUS SAMPLEB-TYPE NATRIURETIC [id number] 21:07:00* Test Item Value Reference Range Interpretation Comments B-TYPE NATRIURETIC PEPTIDE (test code = BNP) 8.8 pgram/mL 0-100 N [id number] 20:41:00* Test Item Value Reference Range Interpretation Comments GLYCOSYLATED HEMOGLOBIN (HA1C) (test code = GLYHGB) 5.6 % HbA1 SUGGESTED DIAGNOSIS: HbA1C (%) Diabetic >6.4Prediabetes 5.7 - 6.4Normal <5.7 ESTIMATED AVERAGE GLUCOSE (test code = EAG) 114 MG/DL [id number] 20:30:00* Test Item Value Reference Range Interpretation Comments MAGNESIUM (test code = MAG) 2.2 mg/dL 1.8-2.4 N [id number] 20:30:00* Test Item Value Reference Range Interpretation Comments ALCOHOL (test code = ALC) 5 mg/dL 0.0-3.0 H -- INTERPRETIVE DATA NOTE: POSITIVE SCREENING RESULTS SHOULD BE CONSIDERED PRESUMPTIVE.WHEN COLLECTED FOR MEDICAL PURPOSES ONLY. SPECIMEN WILL NOTBE COLLECTED BY CHAIN OF CUSTODY.IF A CONFIRMATION OF POSITIVE RESULTS IS DESIRED, ACONFIRMATION TEST MUST BE REQUESTED BY THE PHYSICIAN AT ANADDITIONAL CHARGE TO THE PATIENT. [id number] 20:29:00* Test Item Value Reference Range Interpretation Comments MAGNESIUM (test code = MAG) 2.2 mg/dL 1.8-2.4 N [id number] 20:29:00* Test Item Value Reference Range Interpretation Comments ALCOHOL (test code = ALC) mg/dL 0-3 - CTA [id number] 19:08:00 Name: LAVONNE CONTRERAS [facility] : 1960 Age/S: 58 / M [address] [facility] Unit #: [id number] Loc: [place] [address] Phys: Bob Bradley DO Acct: [id number] Dis Date: Status: REG ER PHONE #: [phone] Exam Date: 10/15/2019 1900 FAX #: [phone] Reason: chest pain/lightheaded - evaluate aorta EXAMS: CPT CODE: [id number] CTA CHEST 28353 REASON FOR EXAM: chest pain/lightheaded - evaluate aorta EXAM ORDER DATE: 10/15/2019 5:31 PM Ordering: Bob Bradley DO Attending:Bob Bradley DO Location:[facility] PROCEDURE: - CTA CHEST FINDINGS: CT images [...] (1910) PAGE 1 Signed Report BASIC METABOLIC [id number] 18:28:00* Test Item Value Reference Range Interpretation [...] code = CA) 9.4 mg/dL 8.5-10.1 N [id number] 18:28:00* Test Item Value Reference Range Interpretation Comments TROPONIN-I (test code = TROPI) <0.015 ng/mL 0-0.045 N - XR CHEST 1 [id number] 18:24:00 FAX: Bob Bradley DO [place]: B St: REG Name: LAVONNE BAEZA [facility] : [birth year] Age/S: 58/M [address] Unit #: [id number] Loc: [place], [place] [address] Phys: Bob Bradley DO Acct: [id number] Dis Date: Status: REG ER PHONE #: [phone] Exam Date: 10/15/20191821 FAX #: [phone] Reason: CHEST PAIN EXAMS: CPT CODE: [id number] XR CHEST 1 V 51928 REASON FOR EXAM: CHEST PAIN EXAM ORDER DATE: 10/15/2019 5:07 PM Ordering: Bob Bradley DO Attending:Bob Bradley DO Location:[facility] OCEDURE: - XR CHEST 1 [...] (1826) PAGE 1 Signed Report BASIC METABOLIC [id number] 18:20:00* Test Item Value Reference Range Interpretation [...] code = CA) 9.4 mg/dL 8.5-10.1 N [id number] 18:20:00* Test Item Value Reference Range Interpretation Comments TROPONIN-I (test code = TROPI) ng/mL 0-0.045 CBC W/O [id number] 18:14:00* Test Item Value Reference Range Interpretation [...] = MPV) 9.2 fL 6.7-11.0 N Urine [id number] 14:46:57* Test Item Value Reference Range Interpretation Comments Urine culture isolate (test code = 67601-3) Mixed sisi <=10-3 col/ cc Specimen InformationSpecimen Source: UrineSpecimen Site: Clean catch [place] [facility] and microscopy, with reflex to culture 2019-08-25 11:59:15* Test Item Value Reference Range Interpretation Comments Specimen site (test code = 4081220) Clean catch Color, UA (test code = 5778-6) Yellow Appearance, UA (test code = 5767-9) Slightly-Cloudy Specific gravity, UA (test code = 5811-5) 1.019 1.001-1.035 pH, UA (test code = 5803-2) 7.0 5.0-8.5 Protein, UA (test code = 78797-3) Negative Negative Glucose, UA (test code = 72428-9) Negative Negative Ketones, UA (test code = 2514-8) Negative Negative Bilirubin, UA (test code = 5770-3) Negative Negative Blood, UA (test code = 5794-3) Negative Negative Nitrite, UA (test code = 5802-4) Negative Negative Urobilinogen, UA (test code = 29233-4) Negative <2.0 Leukocyte esterase, UA (test code = 5799-2) Negative Negative Epithelial cells, UA (test code = 5787-7) Many /HPF WBC, UA (test code = 5821-4) 7 0- 1 /HPF H RBC, UA (test code = 02546-8) 2 0- 5 /HPF Bacteria, UA (test code = 50968-8) None seen None seen Yeast, UA (test code = 96853-8) None seen Yeast with pseudohyphae, UA (test code = 72502-7) None seen Lab Interpretation (test code = 62680-0) Abnormal [place] [facility] [id number] 11:17:36* Test Item Value Reference Range Interpretation Comments Sodium (test code = 2951-2) 140 135- 150 mEq/L Potassium (test code = 2823-3) 4.9 3.5- 5.0 mEq/L Chloride (test code = 2075-0) 105 98- 112 mEq/L CO2 (test code = 8-9) 23 mmol/L 24-31 L Anion gap (test code = 98324-8) 12@ANIO 7- 15 mEq/L BUN (test code = 3094-0) 14 mg/dL 7-18 Creatinine (test code = 2160-0) 1.00 mg/dL 0.7-1.2 Glucose (test code = 2345-7) 101 mg/dL 65-100 H Calcium (test code = 84399-5) 9.9 mg/dL 8.3-10.2 Protein (test code = [...] <0.3 0.2-1.2 Lab Interpretation (test code = 30656-2) Abnormal [place] MethodistEstimated [id number] 11:17:36* Test Item Value Reference Range Interpretation Comments Estimated GFR (test code = 5488) 83 mL/min/1.73 m2 Catergory Units InterpretationG1 >=90 Normal or highG2 60-89 Mildly xmgoqrzfnJ5e 45-59 Mildly to moderately jgrotzanqL4g 30-44 Moderately to severely decreasedG4 15-29 Severely decreasedG5 <15 Kidney failureThe eGFR was calculated using the Chronic Kidney Disease Epidemiology Collaboration (CKD-EPI) equation. Interpretation is based on recommendations of the National Kidney Foundation-Kidney Disease Outcomes Quality Initiative (NKF-KDOQI) published in 2014. [facility] with platelet and aehfwvmhzgyn6580-50-96 11:02:02* Test Item Value Reference Range Interpretation Comments WBC (test code = 03925-6) 6.3 4.2- 11.0 k/uL RBC (test code = 00313-8) 4.63 m/uL 4.04-5.86 HGB (test code = 718-7) 14.0 g/dL 13-17.3 HCT (test code = 4544-3) 42.5 % 34-45 MCV (test code = 787-2) 91.8 fL 80-98 MCH (test code = 785-6) 30.2 pg 27-34 MCHC (test code = 786-4) 32.9 g/dL 31.5-36.5 RDW - SD (test code = 89523-1) 47.5 fL 37-51 MPV (test code = 69083-9) 9.3 fL 7.4-10.4 Platelet count (test code = 91364-1) 192 150- 400 k/uL Nucleated RBC (test code = 11355-7) 0.00 /100 WBC Neutrophils (test code = 09860-9) 51.3 % 36-66 Lymphocytes (test code = 08499-3) 36.4 % 24-44 Monocytes (test code = 79359-9) 9.2 % 0-6 H Eosinophils (test code = 44852-9) 1.7 % 0-6 Basophils (test code = 39786-1) 0.8 % 0-1.2 Immature granulocytes (test code = 78441-1) 0.6 % 0-1 Lab Interpretation (test code = 49480-6) Abnormal [place] [facility]- XR CHEST 1 [id number] 07:46:00 FAX: Audrey Perez [phone] [place]: St: REG Name: LAVONNE BAEZA [facility] : [birth year] Age/S: 58/M [address] Unit #: [id number] Loc: [place] [address] Phys: Audrey Perez STOCK WETTER Acct: [id number] Dis Date: Status: REG ER PHONE #: [phone] Exam Date: 07/29/2019 0731 FAX #: [phone] Reason: cough, fever, sob EXAMS: CPT CODE: [id number] XR CHEST 1 V 76500 EXAM: XR Chest 1 View INDICATION: cough, fever, sob LOCATION CODE: H 50 COMPARISON: Chest radiograph dated 07/16/2019 TECHNIQUE: Frontal vi ew of the chest was obtained. FINDINGS: The lungs a re clear. There is no pleural effusion or pneumothorax. The cardiomedias tinal silhouette is unchanged. No acute osseous abnormality is identified . IMPRESSION: No acute cardiopulmonary abnormality. at 0728 Reported and signed by: VALENTINA WAGNER MD CC: Audrey Perez STOCK WETTER Technologist: LEIDY GRANADOS RT (R) Trnscrd Date/Time/By: 07/29/2019 (4340) : By: [email or web address] PAGE 1 Signed Report FAX: Audrey Perez [phone] [place]: St: REG Name: DIANELAVONNE ELBERT [facility] : 1960 Age/S: 58/M [address] Unit #: [id number] Loc: [place] [address] Phys: Audrey Perez NP A cct: [id number] Dis Date: Status: REG ER PHONE #: [phone] Exam Date: 07/29/2019730 FAX #: [phone] Reason: cough, fever, sob EXAMS: CPT CODE: [id number] XR CHEST 1 V 66314 < Continued> Orig Print D/T: S: 07/29/2019 (5734) PAGE 2 Signed Report B-TYPE NATRIURETIC [id number] 16:31:00* Test Item Value Reference Range Interpretation Comments B-TYPE NATRIURETIC PEPTIDE (test code = BNP) 69.62 pgram/mL 0-100 N BASIC METABOLIC [id number] 16:27:00* Test Item Value Reference Range Interpretation [...] CA) 9.7 mg/dL 8.5-10.1 N HEPATIC FUNCTION [id number] 16:27:00* Test Item Value Reference Range Interpretation [...] reference range due to change in reagent. [id number] 16:27:00* Test Item Value Reference Range Interpretation Comments TROPONIN-I (test code = TROPI) <0.015 ng/mL 0-0.045 N BASIC METABOLIC [id number] 16:12:00* Test Item Value Reference Range Interpretation [...] code = CA) mg/dL 8.5-10.1 HEPATIC FUNCTION [id number] 16:12:00* Test Item Value Reference Range Interpretation [...] TOTAL (test code = ALKP) IUnit/L 45-117 [id number] 16:12:00* Test Item Value Reference Range Interpretation Comments TROPONIN-I (test code = TROPI) ng/mL 0-0.045 CBC W/O [id number] 15:59:00* Test Item Value Reference Range Interpretation [...] MPV) 9.5 fL 6.7-11.0 N CBC W/O [id number] 15:57:00* Test Item Value Reference Range Interpretation [...] MPV) fL 6.7-11.0 - XR CHEST 1 [id number] 14:10:00 FAX: Aram Cooney MD [place]: St: PRE Name: LUZ BAEZAE ELBERT [facility] : [birth year] Age/S: 58/M [address] Unit #: [id number] Loc: [place] [address] Phys: Aram Cooney MD Acct: [id number] Dis Date: Status: PRE ER PHONE #: [phone] Exam Date: 07/16/2019 1359 FAX #: [phone] Reason: Shortness of Breath EXAMS: CPT CODE: [id number] XR CHEST 1 V 08305 REASON FOR EXAM: Shortness of Breath Exam [...] cholecystectomy. IMPRESSION: No acute cardiopulmonary process. Location: [facility] E lectronically Signed by Joe Vu MD on 07/16/2019 at 1410 Reported and signed by: Joe Vu MD CC: Aram Cooney MD Technologist: Sahara Lino RT(R) Trnscrd Date/Time/By: 07/16/2019 (1410) : By: [email or web address] [facility] Print D/T: S: 07/16/2019 (9753) PAGE [address] Renal Stone Jdmztbxa0147-33-30 19:20:55Hm Interface, Radiology Results - 06/27/2019 7:24 [...] MRI would be useful for further ev aluation.[facility]-1MK13246VGFytlicr MethodistLipase yvnqr4945-70-87 18:08:05* Test Item Value Reference Range Interpretation Comments Lipase (test code = 3040-3) 61 U/L 13-60 H Lab Interpretation (test code = 69011-6) Abnormal [place] MethodistTHYROID STIMULATING [id number] 08:40:00* Test Item Value Reference Range Interpretation Comments THYROID STIMULATING HORMONE (test code = TSH) 1.790 uIU/mL 0.36-3.7 4 N TSH REFERENCE RANGES: EUTHYROID: 0.35 - 4.3 mIU/mL HYPO : > 5.5 mIU/mL HYPER : < 0.35 mIU/mL URINALYSIS [id number] 01:17:00* Test Item Value Reference Range Interpretation Comments UA COLOR (test code = COLU) Light-Chelan YELLOW UA APPEARANCE (test code = APPU) [...] MANY #/LPF FEW A Urine Source? CatheterURINALYSIS [id number] 01:15:00* Test Item Value Reference Range Interpretation Comments UA COLOR (test code = COLU) Light-Chelan YELLOW UA APPEARANCE (test code = APPU) [...] per HPF NONE Urine Source? CatheterBASIC METABOLIC [id number] 22:33:00* Test Item Value Reference Range Interpretation [...] CA) 9.0 mg/dL 8.5-10.1 N BASIC METABOLIC [id number] 22:28:00* Test Item Value Reference Range Interpretation [...] code = CA) mg/dL 8.5-10.1 CBC W/AUTO [id number] 22:09:00* Test Item Value Reference Range Interpretation [...] code = BA#) K/mm3 0.0-0.2 CBC W/AUTO [id number] 22:09:00* Test Item Value Reference Range Interpretation [...] MDIFF) NO - CT ABD PELVIS W/O [id number] 21:48:00 Name: LAVONNE CONTRERAS [facility] : 1960 Age/S: 58 / M [address] [facility] Unit #: [id number] Loc: [place] [address] Phys: Tamara Castro MD Acct: [id number] Dis Date: Status: REG ER PHONE #: [phone] Exam Date: 01/28/20192104 FAX #: [phone] Reason: ttp lower abdomen EXAMS: CPT CODE: [id number] CT ABD PELVIS W/O CONT 57399 EXAM: CT of the abdomen and pelvis [...] (2150) PAGE 1 Signed Report - DUP AB/PEL/SC/[id number] 14:14:00 [place]: St: REG Name: LAVONNE BAEZA [facility] : [birth year] Age/S: 58/M [address] Unit #: [id number] Loc: [place] [address] Phys: Rigo Ayoub MD Acct: [id number] Dis Date: Status: REG ER PHONE #: [phone] Exam Date: 01/25/2019 1538 FAX #: [phone] Reason: SEE REASON ON US SCROTUM AND CNT EXAMS: CPT CODE: [id number] DUP AB/PEL/SC/LTD 14089 EXAM: - US SCROTUM AND CNTS, - [...] Technologist: Duane Donaldson RDMS Trnscrd Date/Time/By: 01/25/2019 (9474) : By: [email or web address] PAGE 1 Signed Report [place]: St: REG Name: Opal CONTRERAS MEENU [facility] : 1960 Age/ S: 58/M [address] Unit #: [id number] Loc: [place] [address] Phys: Rigo Ayoub MD Acct: [id number] Dis Date: Status: REG ER PHONE #: [phone] Exam Date: 01/25/2019 3753 FAX #: [phone] Reason: SEE REASON ON US SCROTUM AND CNT EXAMS: CPT CODE: [id number] DUP AB/PEL/SC/LTD 81075 <Continued> Orig Print D/T: S: 01/25/2019 (8350) PAGE 2 Signed Report - US SCROTUM AND CNTS 2019-01-25 14:14:00 [place]: St: REG Name: LAVONNE BAEZA [facility] : [birth year] Age/S: 58/M [address] Unit #: [id number] Loc: [place] [address] Phys: Rigo Ayoub MD Acct: [id number] Dis Date: Status: [facility] ER PHONE #: [phone] Exam Date: 01/25/2019 0820 FAX #: [phone] Reason: pain EXAMS: CPT CODE: [id number] US SCROTUM AND CNTS 32699 EXAM: - US SCROTUM AND CNTS, - [...] Jayde Garcia MD CC: Technologist: Duane Donaldson [facility] Trnscrd Date/Time/By: 01/25/2019 (1415) : By: [email or web address] PAGE 1 Signed Report [place]: St: REG Name: DIANEOpal [facility] : 1960 Age/ S: 58/M [address] Unit #: [id number] Loc: [place] [address] Phys: Rigo Ayoub MD Acct: [id number] Dis Date: Status: REG ER PHONE #: [phone] Exam Date: 01/25/2019 1330 FAX #: [phone] Reason: pain EXAMS: CPT CODE: [id number] US SCROTUM AND CNTS 08296 <Continued> Orig Print D/T: S: 01/25/2019 (4299) PAGE 2 Signed Report PROCALCITONIN (PCT) 2019-01-25 [...] between 0.5-2.0 NG/ML are obtained. BASIC METABOLIC [id number] 11:39:00* Test Item Value Reference Range Interpretation [...] CA) 9.2 mg/dL 8.4-10.2 N LIVER FUNCTION [id number] 11:39:00* Test Item Value Reference Range Interpretation [...] code = ALKP) 129 U/L 38-126 H [id number] 11:39:00* Test Item Value Reference Range Interpretation Comments LIPASE (test code = LIP) 272 U/L 23-300 N TROPONIN I [id number] 11:38:00* Test Item Value Reference Range Interpretation [...] valid only if similarmethodology is used. PROTHROMBIN [id number] 11:34:00* Test Item Value Reference Range Interpretation [...] with Food and Drug Administrationrecommendations. THROMBOPLASTIN TIME [id number] 11:34:00* Test Item Value Reference Range Interpretation Comments THROMBOPLASTIN TIME PARTIAL (test code = PTT) 29.4 SECONDS 23.4-37. 0 N Therapeutic Range for Heparin EFFECTIVE 11/12/12 Heparin IU/mL aPTT Seconds0.3 64.30.7 88.8 UA RFLX MICR CULT IF [id number] 11:30:00* Test Item Value Reference Range Interpretation [...] for culture: Temperature > 100.4 FCBC W/AUTO [id number] 11:25:00* Test Item Value Reference Range Interpretation [...] 0.08 x10 3/uL 0.0-0.1 N LACTIC ACID [id number] 11:22:00* Test Item Value Reference Range Interpretation Comments LACTIC ACID POC (test code = LACTP) 1.71 mmol/L 0.7-2.0 N - XR CHEST 1 [id number] 09:48:00 [place]: St: REG [facility] [place] [facility] [birth year] Age/S: 58/M [address] Unit #: [id number] Loc: [place] [address] Phys: Rigo Ayoub MD Acct: [id number] Dis Date: Status: REG ER PHONE #: [phone] Exam Date: 01/25/2019 0936 FAX #: [phone] Reason: CODE SEPSIS EXAMS: CPT CODE: [id number] XR CHEST 1 V 44564 EXAM: - XR CHEST 1 V Location [...] Liana Garcia MD CC: Technologist: DEBORAH Quiroz [facility] Date/Time/By: 01/25/2019 (0948) : By: [email or web address] PAGE 1 Signed Report [place]: St: REG Name: LAVONNE CONTRERAS : 1960 Age/S: 58/M [address] Unit #: [id number] Loc: [place] [address] Phys: Rigo Ayoub MD Acct: [id number] Dis Date: Status: R EG ER PHONE #: [phone] Exam Date: 0 01/25/2019 0936 FAX #: [phone] Reason: CODE SEPSIS EXAMS: CPT CODE: [id number] XR CHEST 1 V 97973 <Continued> Orig Print D/T: S: 01/25/2019 (0951) [...] if anyconcentrations between 0.5-2.0 NG/ML are obtained. [id number] 22:09:00* Test Item Value Reference Range Interpretation Comments D-DIMER (test code = DDIMER) 1218 ng/mLFEU 0-500 HH Critical Value reported toFirst Name:[id number] Last Name:RESULTS READ BACK AND VERIFIEDby SARAY, on 01/24/19, @ 8563.THE DDIMER METHOD IS USED IN THE EXCLUSION OF DEEP VEINTHROMBOSIS AND/OR PULMONARY EMBOLISM AND THE CLINICAL CUT-OFF VALUE FOR EXCLUSION (500 NG/ML FEU) OF THESE CONDITIONSIS VALIDATED BY THE CARDIOVASCULAR SPECIALIST OF THE METHOD. A NEGATIVE DDIMER RESULT WHEN COMBINED WITH A CLINICALASSESSMENT OF LOW PRETEST PROBABILITY HAS BEEN SHOWN TO HAVEA HIGH NEGATIVE PREDICTIVE VALUE OF DVT OR PE. D-DIMER VALUES >500 ng/mL ARE NOT DIAGNOSTIC FOR DVT,PEOR DIC WITHOUT OTHER CONFIRMATORY TESTS AND APPROPRIATECLINICAL EVALUATIONS. [id number] 22:01:00* Test Item Value Reference Range Interpretation Comments LIPASE (test code = LIP) 196 U/L 23-300 N LACTIC ACID [id number] 21:57:00* Test Item Value Reference Range Interpretation Comments LACTIC ACID POC (test code = LACTP) 1.18 mmol/L 0.7-2.0 N - CT ABD PELVIS W/O [id number] 21:54:00 [place]: St: REG Name: CAT LINOLAVONNE [facility] : [birth year] Age/S: 58/M [address] Unit: [id number] Loc: [place] [address] Phys: Blade Howard MD Acct: [id number] Dis Date: Status: REG ER PHONE #: [phone] Exam Date: 01/24/2019 7638 FAX #: [phone] Reason: ABDOMINAL PAIN POST SUPRAPUBIC CATHETER EXAMS: CPT CODE: [id number] CT ABD PELVIS W/O CONT 45576 CT Abdomen and Pelvis without cont rast. Location: Clinical indication: 58-year-old with abdominal pain post suprapubic catheter. Comparison: No ne Technique: Computed [facility] the pubic symphysis without IV contrast. [...] i n the right lower quadrant. Pelvis: [place] for penile prosthese s are present in [...] elective MRI. PAGE 1 Signed Report (CONTINUED) [place]: St: REG Name: LAVONNE CONTRERAS [facility] [place] : 1960 Age/S: 58/M [address] Unit: [id number] Loc: [place] [address] Phys: Blade Howard MD Acct: [id number] Dis Date: Status: REG ER PHONE #: [phone] Exam Date: 01/24/20195 FAX #: [phone] Reason: ABDOMINAL PAIN POST SUPRAPUBIC CATHETER EXAMS: CPT CODE: [id number] CT ABD PELVIS W/O CONT 83651 < Continued> at 2154 Reported and signed by: Tony Forbes MD CC: Technologist: JOSE Cedillord Dt/Tm: 01/24/2019 (2153) [email or web address] Orig Print D/T: S: 01/24/2019 (7 PAGE 2 Signed Report URINALYSIS [id number] 21:17:00* Test Item Value Reference Range Interpretation [...] YEASTUBD) 1+ /HPF None A BASIC METABOLIC [id number] 21:13:00* Test Item Value Reference Range Interpretation [...] CA) 9.4 mg/dL 8.4-10.2 N CBC W/AUTO [id number] 20:57:00* Test Item Value Reference Range Interpretation [...] 0.10 x10 3/uL 0.0-0.1 N CBC W/MANUAL [id number] 13:41:00* Test Item Value Reference Range Interpretation [...] (test code = PLTMORPH) NORMAL BASIC METABOLIC [id number] 11:05:00* Test Item Value Reference Range Interpretation [...] CA) 8.7 mg/dL 8.5-10.1 N BASIC METABOLIC [id number] 10:42:00* Test Item Value Reference Range Interpretation [...] code = CA) mg/dL 8.5-10.1 CBC W/MANUAL [id number] 10:11:00* Test Item Value Reference Range Interpretation [...] MORPHOLOGY (test code = PLTMORPH) CBC W/MANUAL [id number] 10:11:00* Test Item Value Reference Range Interpretation [...] MORPHOLOGY (test code = PLTMORPH) CBC W/MANUAL [id number] 10:11:00* Test Item Value Reference Range Interpretation [...] MORPHOLOGY (test code = PLTMORPH) CBC W/MANUAL [id number] 10:10:00* Test Item Value Reference Range Interpretation [...] MORPHOLOGY (test code = PLTMORPH) CBC W/MANUAL [id number] 10:10:00* Test Item Value Reference Range Interpretation [...] MORPHOLOGY (test code = PLTMORPH) BASIC METABOLIC [id number] 08:57:00* Test Item Value Reference Range Interpretation [...] CA) 7.9 mg/dL 8.5-10.1 L BASIC METABOLIC [id number] 08:49:00* Test Item Value Reference Range Interpretation [...] (test code = CA) mg/dL 8.5-10.1 VANCOMYCIN [id number] 22:10:00* Test Item Value Reference Range Interpretation Comments VANCOMYCIN TROUGH (test code = VANCT) 16.2 ug/mL 10-20 N BASIC METABOLIC [id number] 19:38:00* Test Item Value Reference Range Interpretation [...] CA) 8.5 mg/dL 8.5-10.1 N BASIC METABOLIC [id number] 19:31:00* Test Item Value Reference Range Interpretation [...] code = CA) mg/dL 8.5-10.1 BASIC METABOLIC [id number] 05:50:00* Test Item Value Reference Range Interpretation [...] CA) 8.1 mg/dL 8.5-10.1 L BASIC METABOLIC [id number] 05:39:00* Test Item Value Reference Range Interpretation [...] code = CA) mg/dL 8.5-10.1 CBC W/O [id number] 05:34:00* Test Item Value Reference Range Interpretation [...] = MPV) 9.5 fL 6.7-11.0 N VANCOMYCIN [id number] 17:36:00* Test Item Value Reference Range Interpretation Comments VANCOMYCIN TROUGH (test code = VANCT) 22.6 ug/mL 10-20 H BASIC METABOLIC [id number] 10:42:00* Test Item Value Reference Range Interpretation [...] CA) 8.5 mg/dL 8.5-10.1 N BASIC METABOLIC [id number] 10:35:00* Test Item Value Reference Range Interpretation [...] mg/dL 8.5-10.1 - XR ABDOMEN AP 1 [id number] 10:17:00 FAX: Wili Eckert MD [phone] [place]: St: ADM FAX: Amarjit Sorto MD [phone] Name: LAVONNE CONTRERAS [facility] : 1960 Age/S: 58/M [address] [facility] Unit #: [id number] Loc: [place] [address] Phys: Amarjit Don MD Acct: [id number] Dis Date: Status: ADM IN PHONE #: [phone] Exam Date: 01/16/2019 1007 FAX #: [phone] Reason: ABCESS IN TESTICLE, P OSSIBLE INFECTION OF IMPLA EXAMS: CPT CODE: [id number] XR ABDOMEN AP 1 V 27256 HISTORY: Abscess and testicle. COMPARISON: CT scan [...] By: [email or web address] Orig Print D/T: S: 01/16/2019 (4704) PAGE 1 Signed Report VANCOMYCIN [id number] 09:31:00* Test Item Value Reference Range Interpretation Comments VANCOMYCIN TROUGH (test code = VANCT) 8.7 ug/mL 10-20 L - USG NDL PLACEMENT (Biopsy/Asp)2019-01-16 09:04:00 Name: LAVONNE CONTRERAS [facility] : 1960 Age/S: 58 / M [address] [facility] Unit #: [id number] Loc: [place] [address] Phys: Wili Eckert MD Acct: [id number] Dis Date: Status: ADM IN PHONE #: [phone] Exam Date: 01/15/2019 1654 FAX #: [phone] Reason: EXAMS: CPT CODE: [id number] USG NDL PLACEMENT (Biopsy/Asp) 14660 Fluoro Time: DAP (Gy m2): Air Kerma [...] tract was dilated to accept a 14 Citizen [place] pigtail tube. The tube was connected to a Rosales back and secured to the subcutaneous tissue with #2 silk sutures MEDICATIONS: None COMPLICATIONS: None Blood loss: Less than 5 mL Fluoroscopic time: 40 seconds Radiation dose: 11.5 mGy IMPRESSION: Technically successful percutaneous placement of suprapubic catheter at 0904 Reported and signed by: Castillo August M.D. CC: Wili Eckert MD Technologist: Franchesca Cobly Trndeb Date/Time: 01/16/2019 (903) tCHERYVTL Orig Print D/T: S: 01/16/2019 (07) PAGE 1 Signed Report - XR FLUORO [id number] 09:04:00 Name: LAVONNE CONTRERAS [facility] : 1960 Age/S: 58 / M [address] [facility] Unit #: [id number] Loc: [place] [address] Phys: Wili Eckert MD Acct: [id number] Dis Date: Status: ADM IN PHONE #: [phone] Exam Date: 01/15/2019 1120 FAX #: [phone] Reason: URINARY RETENTION EXAMS: CPT CODE: [id number] XR FLUORO NDL 86049 Fluoro Time: 40 DAP (Gy m2): 4.438 [...] tract was dilated to accept a 14 Citizen [place] pigtail tube. The tube was connected to a Rosales back and secured to the subcutaneous tissue with #2 silk sutures MEDICATIONS: None COMPLICATIONS: None Blood loss: Less than 5 mL Fluoroscopic time: 40 seconds Radiation dose: 11.5 mGy IMPRESSION: Technically successful percutaneous placement of suprapubic catheter at 0904 Reported and signed by: Castillo August M.D. CC: Wili Eckert MD Technologist: Franchesca Colby Trndeb Date/Time: 01/16/2019 (903) TannaVTL Orig Print D/T: S: 01/16/2019 (906) PAGE 1 Signed Report BASIC METABOLIC [id number] 08:46:00* Test Item Value Reference Range Interpretation Comments SODIUM (test code = NA) TEST NOT PERFORMED mmol/L 136-145 N Previously reported result: 139 mmol/LEdited by: EDGARD on 01/16/19:99476501/16/19 0844: NA previously reported as: 139 mmol/L POTASSIUM (test code = K) TEST NOT PERFORMED mmol/L 3.5-5.1 N Previously reported result: 4.6 mmol/LEdited by: EDGARD on 01/16/19:16114301/16/19 0845: K previously reported as: 4.6 mmol/L CHLORIDE (test code = CL) TEST NOT PERFORMED mmol/L 98-107 N Previously reported result: 106.0 mmol/LEdited by: EDGARD on 01/16/19:60426401/16/19 0845: CL previously reported as: 106.0 mmol/L [...] TEST NOT PERFORMED mg/dL 8.5-10.1 BASIC METABOLIC [id number] 08:41:00* Test Item Value Reference Range Interpretation [...] code = CA) mg/dL 8.5-10.1 CBC W/AUTO [id number] 07:34:00* Test Item Value Reference Range Interpretation [...] REQUIRED (test code = MDIFF) NO PROTHROMBIN [id number] 13:44:00* Test Item Value Reference Range Interpretation [...] (2.5-3.5) IS PATIENT ON ANTICOAGULANTS? NCOMMENTS TO WORKFORCE MANAGEMENT COORDINATOR: NEED STAT PLEASE PT FOR SURGERY A.S.A.PTHROMBOPLASTIN TIME [id number] 13:44:00* Test Item Value Reference Range Interpretation Comments THROMBOPLASTIN TIME PARTIAL (test code = PTT) 29.9 seconds 25.0-36. 5 N IS PATIENT ON ANTICOAGULANTS? NCOMMENTS TO WORKFORCE MANAGEMENT COORDINATOR: NEED STAT PLEASE PT FOR SURGERY A.S.A.P- US PELVIS LTD OR [id number] 13:09:00 Name: LAVONNE CONTRERAS [facility] : 1960 Age/S: 58 / M [address] [facility] Unit #: [id number] Loc: [place] [address] Phys: Castillo August MD Acct: [id number] Dis Date: Status: ADM IN PHONE #: [phone] Exam Date: 01/15/2019 1234 FAX #: [phone] Reason: SCAN BLADDER PRIOR FOR SUPRA PUBIC CATHETER AUGUSTUS EXAMS: CPT CODE: [id number] US PELVIS LTD OR FU 36697 REASON FOR EXAM: SCAN BLADDER PRIOR FOR [...] CC: Wili Eckert MD Technologist: CAROLINE WYNN RT(R),[facility] Trnscb Date/Time: 01/15/2019 (2287) Michael Orig Print D/T: S: 01/15/2019 (6611) Probe: PAGE 1 Signed Report BASIC METABOLIC [id number] 03:50:00* Test Item Value Reference Range Interpretation [...] CA) 8.7 mg/dL 8.5-10.1 N COMPREHENSIVE METABOLIC [id number] 10:05:00* Test Item Value Reference Range Interpretation [...] due to change in reagent. COMPREHENSIVE METABOLIC [id number] 09:58:00* Test Item Value Reference Range Interpretation [...] TOTAL (test code = ALKP) IUnit/L 45-117 [id number] 08:18:00* Test Item Value Reference Range Interpretation Comments GLYCOSYLATED HEMOGLOBIN (HA1C) (test code = GLYHGB) 5.9 % HbA1 4. 8-6.0 N ESTIMATED AVERAGE GLUCOSE (test code = EAG) 123 MG/DL CBC W/O [id number] 08:10:00* Test Item Value Reference Range Interpretation [...] MPV) 9.5 fL 6.7-11.0 N CBC W/O [id number] 08:09:00* Test Item Value Reference Range Interpretation [...] MPV) fL 6.7-11.0 - CT ABD PELVIS [id number] 18:28:00 Name: LAVONNE CONTRERAS [facility] : 1960 Age/S: 58 / M [address] [facility] Unit #: [id number] Loc: [place] [address] Phys: Jeremy Vanegas STOCK WETTER Acct: [id number] Dis Date: Status: ADM IN PHONE #: [phone] Exam Date: 01/13/2019 1710 FAX #: [phone] Reason: TESTICLE PAIN-POSS HERNIA EXAMS: CPT CODE: [id number] CT ABD PELVIS W/CONT 92037 HISTORY: Testicular pain and possible hernia. COMPARISON: [...] 1 Signed Report (CONTINUED) Name: LAVONNE CONTRERAS [facility] : 1960 Age/S: 58 / M [address] [facility] Unit #: [id number] Loc: [place] [address] Phys: Grant Vanegas NP Acct: [id number] Dis Date: Status: ADM IN PHONE #: Exam Date: 01/13/2019 1719 FAX #: Reason: TESTICLE PAIN-POSS HERNIA EXAMS: CPT CODE: [id number] CT ABD PELVIS W /CONT 29533 <Continued> stable going back to examination of [...] 01/13/2019 (183) PAGE 2 Signed Report LACTIC [id number] 17:40:00* Test Item Value Reference Range Interpretation Comments LACTIC ACID (test code = LACT) 1.1 mmol/L 0.4-1.9 N - US SCROTUM AND [id number] 16:24:00 Name: LAVONNE CONTRERAS [facility] : 1960 Age/S: 58 / M [address] [facility] Unit #: [id number] Loc: [place] [address] Phys: Jeremy Vanegas NP Acct: [id number] Dis Date: Status: REG ER PHONE #: [phone] Exam Date: 01/13/2019 1547 FAX #: [phone] Reason: TESTICLE PAIN EXAMS: CPT CODE: [id number] US SCROTUM AND CNTS 07886 REASON FOR EXAM: PELVIC PAIN EXAM ORDER [...] 1 Signed Report (CONTINUED) Name: LAVONNE CONTRERAS [facility] : 1960 Age/S: 58 / M [address] [facility] Unit #: [id number] Loc: [place] [address] Phys: Jeremy Vanegas STOCK WETTER Acct: [id number] Dis Date: Status: REG ER PHONE #: [phone] Exam Date: 01/13/2019 1546 FAX #: [phone] Reason: TESTICLE PAIN EXAMS: CPT CODE: [id number] US SCROTUM AND CNTS 73091 <Continued> IMPRESSION: Findings of left scrotal wall abscess and left sided epididymitis. The left testicle is sonographically unremarkable. Penile implant. at 1624 Reported and signed by: Joe Vu MD CC: Jeremy Vanegas NP Technologist: Romy Chowdary RT(S), [facility] Trndeb Date/Time: 01/13/2019 (1623) [email or web address] Orig Print D/T: S: 01/13/2019 (7976) Probe: PAGE 2 Signed Report - DUP AB/PEL/SC [id number] 16:24:00 Name: LAVONNE CONTRERAS [facility] : 1960 Age/S: 58 / M [address] [facility] Unit #: [id number] Loc: [place] [address] Phys: Jeremy Vanegas NP Acct: [id number] Dis Date: Status: REG ER PHONE #: [phone] Exam Date: 01/13/2019 1546 FAX #: [phone] Reason: PELVIC PAIN EXAMS: CPT CODE: [id number] DUP AB/PEL/SC COMP 39128 REASON FOR EXAM: PELVIC PAIN EXAM ORDER [...] 1 Signed Report (CONTINUED) Name: LAVONNE CONTRERAS [facility] : 1960 Age/S: 58 / M [address] [facility] Unit #: [id number] Loc: [place] [address] Phys: Jeremy Vanegas STOCK WETTER Acct: [id number] Dis Date: Status: REG ER PHONE #: [phone] Exam Date: 01/13/2019 1546 FAX #: [phone] Reason: PELVIC PAIN EXAMS: CPT CODE: [id number] DUP AB/PEL/SC COMP 65159 <Continued> IMPRESSION: Findings of left scrotal wall abscess and left sided epididymitis. The left testicle is sonographically unremarkable. Penile implant. at 1624 Reported and signed by: Joe Vu MD CC: Jeremy Vanegas NP Technologist: Romy Chowdary RT(S), [facility] Trnscb Date/Time: 01/13/2019 (1623) t.ALTAFR.RR31 Orig Print D/T: S: 01/13/2019 (1888) Probe: PAGE 2 Signed Report BASIC METABOLIC [id number] 16:09:00* Test Item Value Reference Range Interpretation [...] CA) 8.8 mg/dL 8.5-10.1 N HEPATIC FUNCTION [id number] 16:09:00* Test Item Value Reference Range Interpretation [...] reference range due to change in reagent. [id number] 16:09:00* Test Item Value Reference Range Interpretation Comments LIPASE (test code = LIP) 99 U/L 73.0-393.0 N CBC W/O [id number] 16:05:00* Test Item Value Reference Range Interpretation [...] MPV) 9.2 fL 6.7-11.0 N CBC W/O [id number] 16:04:00* Test Item Value Reference Range Interpretation [...] code = MPV) fL 6.7-11.0 BASIC METABOLIC [id number] 15:58:00* Test Item Value Reference Range Interpretation [...] code = CA) mg/dL 8.5-10.1 HEPATIC FUNCTION [id number] 15:58:00* Test Item Value Reference Range Interpretation [...] TOTAL (test code = ALKP) IUnit/L 45-117 [id number] 15:58:00* Test Item Value Reference Range Interpretation Comments LIPASE (test code = LIP) U/L 73.0-393.0 URINALYSIS [id number] 15:57:00* Test Item Value Reference Range Interpretation [...] FEW #/LPF Urine Source? Clean CatchCOMPREHENSIVE METABOLIC [id number] 08:01:00* Test Item Value Reference Range Interpretation [...] code = ALKP) 174 U/L 38-126 H [id number] 08:01:00* Test Item Value Reference Range Interpretation Comments MAGNESIUM (test code = MAG) 2.2 mg/dL 1.6-2.3 N COMPREHENSIVE METABOLIC [id number] 07:49:00* Test Item Value Reference Range Interpretation [...] code = ALKP) 174 U/L 38-126 H [id number] 07:49:00* Test Item Value Reference Range Interpretation Comments MAGNESIUM (test code = MAG) mg/dL 1.6-2.3 CBC W/AUTO [id number] 07:34:00* Test Item Value Reference Range Interpretation [...] 0.05 x10 3/uL 0.0-0.1 N BASIC METABOLIC [id number] 02:48:00* Test Item Value Reference Range Interpretation [...] 8.4-10.2 N UA RFLX MICR CULT IF [id number] 02:42:00* Test Item Value Reference Range Interpretation [...] 0.04 x10 3/uL 0.0-0.1 N LACTIC ACID [id number] 02:30:00* Test Item Value Reference Range Interpretation Comments LACTIC ACID POC (test code = LACTP) 0.95 mmol/L 0.7-2.0 N - CT ABD PELVIS W/O [id number] 22:43:00 Name: LAVONNE CONTRERAS [facility] : 1960 Age/S: 57 / M [address] [facility] Unit #: [id number] Loc: [place] [address] Phys: Jayna Brand MD Acct: [id number] Dis Date: Status: DEP ER PHONE #: [phone] Exam Date: 10/06/20182129 FAX #: [phone] Reason: HEMATURIA EXAMS: CPT CODE: [id number] CT ABD PELVIS W/O CONT 94357 REASON FOR EXAM: HEMATURIA EXAM ORDER DATE: [...] 1 Signed Report (CONTINUED) Name: LAVONNE CONTRERAS [facility] : 1960 Age/S: 57 / M [address] [facility] Unit #: [id number] Loc: [place] [address] Phys: Jayna Brand MD Acct: [id number] Dis Date: Status: [facility] ER PHONE #: [phone] Exam Date: 10/06/2018 2130 FAX #: [phone] Reason: HEMATURIA EXAMS: CPT CODE: [id number] CT ABD PELVIS W/O CONT 53774 <Continued> Peritoneum and retroperitoneum: No free fluid [...] Technologist:CLAUDE MAY(R),RDMS,CT CTDI: DLP: Trnscb Date/Time: 10/06/2018 (130) t.SDR.RR31 Orig Print D/T: S: 10/06/2018 (9008) PAGE 2 Signed Report - CT ABD PELVIS W/O [id number] 22:43:00 Name: LAVONNE CONTRERAS [facility] : 1960 Age/S: 57 / M [address] [facility] Unit #: [id number] Loc: [place] [address] Phys: Abhijit Brand MD Acct: [id number] Di s Date: Status: REG ER PHONE #: Exam Date: 10/06/2018 2130 FAX #: Reason: HEMATURIA EXAMS: CPT CODE: [id number] CT ABD PELVIS W/O CONT 27407 REASON FOR EXAM: HEMATURIA EXAM ORDER DATE: [...] 1 Signed Report (CONTINUED) Name: LAVONNE CONTRERAS [facility] : 1960 Age/S: 57 / M [address] [facility] Unit #: [id number] Loc: [facility] [place] [address] Phys: Jayna Brand MD Acct: [id number] Dis Date: Status: REG ER PHONE #: [phone] Exam Date: 10/06/2018 213 FAX #: [phone] Reason: HEMATURIA EXAMS: CPT CODE: [id number] CT ABD PELVIS W/O CONT 72634 <Continued> Peritoneum and retroperitoneum: No free fluid [...] MAY RT(R),RDMS,CT CTDI: DLP: Trnscb Date/Time: 10/06/2018 (7893) t.SDR.RR31 Orig Print D/T: S: 10/06/2018 (8078) PAGE 2 Signed Report COMPREHENSIVE METABOLIC [id number] 20:48:00* Test Item Value Reference Range Interpretation [...] = ALKP) 272 U/L 38-126 H PROTHROMBIN [id number] 20:47:00* Test Item Value Reference Range Interpretation [...] (2.5-3.5) IS PATIENT ON ANTICOAGULANTS? NTHROMBOPLASTIN TIME [id number] 20:47:00* Test Item Value Reference Range Interpretation Comments THROMBOPLASTIN TIME PARTIAL (test code = PTT) 23.7 seconds 25.5-34. 3 L Therapeutic Range for patients on Heparin Therapy is 2 to2.5 times their baseline PTT level. IS PATIENT ON ANTICOAGULANTS? NCBC W/AUTO [id number] 20:29:00* Test Item Value Reference Range Interpretation [...] REQUIRED (test code = MDIFF) NO URINALYSIS [id number] 20:28:00* Test Item Value Reference Range Interpretation [...] LPF NONE-FEW A Urine Source? Clean CatchURINALYSIS [id number] 20:18:00* Test Item Value Reference Range Interpretation [...] HPF NONE Urine Source? Clean CatchBASIC METABOLIC [id number] 05:31:00* Test Item Value Reference Range Interpretation [...] stoppedComments to Phleb: IF not already drawn ywfahYDDLYZELDYH1781-93-30 05:31:00* Test Item Value Reference Range Interpretation Comments PHOSPHOROUS (test code = PHOS) 4.4 mg/dL 2.5-4.5 N Spec Comments: Order to be discontinued when PN is stoppedComments to Phleb: IF not already drawn [id number] 05:31:00* Test Item Value Reference Range Interpretation Comments MAGNESIUM (test code = MAG) 2.1 mg/dL 1.6-2.3 N Spec Comments: Order to be discontinued when PN is stoppedComments to Phleb: IF not already drawn todayBASIC METABOLIC [id number] 05:17:00* Test Item Value Reference Range Interpretation [...] stoppedComments to Phleb: IF not already drawn dejryYYERBXGHWSM4529-11-08 05:17:00* Test Item Value Reference Range Interpretation Comments PHOSPHOROUS (test code = PHOS) mg/dL 2.5-4.5 Spec Comments: Order to be discontinued when PN is stoppedComments to Phleb: IF not already drawn sknmcIOZSPGREY7848-10-43 05:17:00* Test Item Value Reference Range Interpretation Comments MAGNESIUM (test code = MAG) mg/dL 1.6-2.3 Spec Comments: Order to be discontinued when PN is stoppedComments to Phleb: IF not already drawn todayCBC W/AUTO [id number] 04:59:00* Test Item Value Reference Range Interpretation [...] stoppedComments to Phleb: IF not [facility] METABOLIC [id number] 07:24:00* Test Item Value Reference Range Interpretation [...] to be discontinue d when PN is jpdjsdgHIVBJNGIXRK7861-28-48 07:24:00* Test Item Value Reference Range Interpretation Comments PHOSPHOROUS (test code = PHOS) 4.7 mg/dL 2.5-4.5 H Spec Comments: Order to be discontinued when PN is stoppedComments to Phleb: IF not already drawn todaySpec Comments: weeklyComments to Phleb: to be discontinue d when PN is khywtfgMWQXULIHCILCR9392-28-06 07:24:00* Test Item Value Reference Range Interpretation Comments TRIGLYCERIDES (test code = TRIG) 186 mg/dL TRIGLYCERIDES REFERENCE RANGE:Normal: <150 mg/dLBorderline High: 150-199 mg/dLHigh: 200-499 mg/dLVery High: >=500 mg/dL Spec Comments: Order to be discontinued when PN is stoppedComments to Phleb: IF not already drawn todaySpec Comments: weeklyComments to Phleb: to be discontinue d when PN is astmqxzIZTDFVYKR7800-80-06 07:24:00* Test Item Value Reference Range Interpretation Comments MAGNESIUM (test code = MAG) 2.0 mg/dL 1.6-2.3 N Spec Comments: Order to be discontinued when PN is stoppedComments to Phleb: IF not already drawn todaySpec Comments: weeklyComments to Phleb: to be discontinue d when PN is eggzchvDJIXTLRCSY3987-63-16 07:24:00* Test Item Value Reference Range Interpretation Comments PREALBUMIN (test code = PREALB) 21.17 mg/dL 17.6-36.0 N Spec Comments: Order to be discontinued when PN is stoppedComments to Phleb: IF not already drawn todaySpec Comments: weeklyComments to Phleb: to be discontinue d when PN is stoppedBASIC METABOLIC [id number] 07:14:00* Test Item Value Reference Range Interpretation [...] to be discontinue d when PN is fnearipILAHZPWEZUA5413-13-29 07:14:00* Test Item Value Reference Range Interpretation Comments PHOSPHOROUS (test code = PHOS) 4.7 mg/dL 2.5-4.5 H Spec Comments: Order to be discontinued when PN is stoppedComments to Phleb: IF not already drawn todaySpec Comments: weeklyComments to Phleb: to be discontinue d when PN is nyvkrmqLYZVIYBRVLNYS4466-65-48 07:14:00* Test Item Value Reference Range Interpretation Comments TRIGLYCERIDES (test code = TRIG) 186 mg/dL TRIGLYCERIDES REFERENCE RANGE:Normal: <150 mg/dLBorderline High: 150-199 mg/dLHigh: 200-499 mg/dLVery High: >=500 mg/dL Spec Comments: Order to be discontinued when PN is stoppedComments to Phleb: IF not already drawn todaySpec Comments: weeklyComments to Phleb: to be discontinue d when PN is oisnvtwQEESNSZBU1854-14-72 07:14:00* Test Item Value Reference Range Interpretation Comments MAGNESIUM (test code = MAG) 2.0 mg/dL 1.6-2.3 N Spec Comments: Order to be discontinued when PN is stoppedComments to Phleb: IF not already drawn todaySpec Comments: weeklyComments to Phleb: to be discontinue d when PN is areugsnHYMGQTZGFX7473-53-27 07:14:00* Test Item Value Reference Range Interpretation Comments PREALBUMIN (test code = PREALB) mg/dL 17.6-36.0 Spec Comments: Order to be discontinued when PN is stoppedComments to Phleb: IF not already drawn todaySpec Comments: weeklyComments to Phleb: to be discontinue d when PN is stoppedBASIC METABOLIC [id number] 07:09:00* Test Item Value Reference Range Interpretation [...] to be discontinue d when PN is tbsbihvZZEYAWWKNEU6631-28-31 07:09:00* Test Item Value Reference Range Interpretation Comments PHOSPHOROUS (test code = PHOS) mg/dL 2.5-4.5 Spec Comments: Order to be discontinued when PN is stoppedComments to Phleb: IF not already drawn todaySpec Comments: weeklyComments to Phleb: to be discontinue d when PN is yjvaixqACUEWMNQWLKQX5735-48-09 07:09:00* Test Item Value Reference Range Interpretation Comments TRIGLYCERIDES (test code = TRIG) mg/dL Spec Comments: Order to be discontinued when PN is stoppedComments to Phleb: IF not already drawn todaySpec Comments: weeklyComments to Phleb: to be discontinue d when PN is zfydpeaRKWVBLMJN0219-15-35 07:09:00* Test Item Value Reference Range Interpretation Comments MAGNESIUM (test code = MAG) mg/dL 1.6-2.3 Spec Comments: Order to be discontinued when PN is stoppedComments to Phleb: IF not already drawn todaySpec Comments: weeklyComments to Phleb: to be discontinue d when PN is ektpvspPIVUJUSKXR9409-23-66 07:09:00* Test Item Value Reference Range Interpretation Comments PREALBUMIN (test code = PREALB) mg/dL 17.6-36.0 Spec Comments: Order to be discontinued when PN is stoppedComments to Phleb: IF not already drawn todaySpec Comments: weeklyComments to Phleb: to be discontinue d when PN is stoppedPROTHROMBIN [id number] 07:01:00* Test Item Value Reference Range Interpretation [...] be discontinued when PN is stoppedCBC W/AUTO [id number] 06:55:00* Test Item Value Reference Range Interpretation [...] Phleb: IF not already drawn todayBASI METABOLIC [id number] 06:33:00* Test Item Value Reference Range Interpretation [...] stoppedComments to Phleb: IF not already drawn ehqaiRNRSTGYUGXI8788-40-08 06:33:00* Test Item Value Reference Range Interpretation Comments PHOSPHOROUS (test code = PHOS) 3.9 mg/dL 2.5-4.5 N Spec Comments: Order to be discontinued when PN is stoppedComments to Phleb: IF not already drawn akvywRMJZWXYQN6638-85-37 06:33:00* Test Item Value Reference Range Interpretation Comments MAGNESIUM (test code = MAG) 1.9 mg/dL 1.6-2.3 N Spec Comments: Order to be discontinued when PN is stoppedComments to Phleb: IF not already drawn todayCBC W/AUTO [id number] 06:13:00* Test Item Value Reference Range Interpretation [...] stoppedComments to Phleb: IF not already drawn todayTHE [facility] METABOLIC GHOHE1869-05-79 06:09:00* Test Item Value Reference Range Interpretation [...] stoppedComments to Phleb: IF not already drawn nxrdiEOVBKTUJGLW2961-89-70 06:09:00* Test Item Value Reference Range Interpretation Comments PHOSPHOROUS (test code = PHOS) 3.6 mg/dL 2.5-4.5 N Spec Comments: Order to be discontinued when PN is stoppedComments to Phleb: IF not already drawn dtasjNXPLHMDJB5140-20-50 06:09:00* Test Item Value Reference Range Interpretation Comments MAGNESIUM (test code = MAG) 2.0 mg/dL 1.6-2.3 N Spec Comments: Order to be discontinued when PN is stoppedComments to Phleb: IF not already drawn todayBASIC METABOLIC [id number] 06:08:00* Test Item Value Reference Range Interpretation [...] stoppedComments to Phleb: IF not already drawn ywtobYTATLSBQGMT7655-80-43 06:08:00* Test Item Value Reference Range Interpretation Comments PHOSPHOROUS (test code = PHOS) mg/dL 2.5-4.5 Spec Comments: Order to be discontinued when PN is stoppedComments to Phleb: IF not already drawn alekhGHDAXHLXS3460-72-77 06:08:00* Test Item Value Reference Range Interpretation Comments MAGNESIUM (test code = MAG) mg/dL 1.6-2.3 Spec Comments: Order to be discontinued when PN is stoppedComments to Phleb: IF not already drawn todayCBC W/AUTO [id number] 05:48:00* Test Item Value Reference Range Interpretation [...] Phleb: IF not already drawn todayBASIC METABOLIC TWELX9614-02-26 04:45:00* Test Item Value Reference Range Interpretation [...] stoppedComments to Phleb: IF not already drawn rstwqLTHWJYEVGKM9642-02-55 04:45:00* Test Item Value Reference Range Interpretation Comments PHOSPHOROUS (test code = PHOS) 3.8 mg/dL 2.5-4.5 N Spec Comments: Order to be discontinued when PN is stoppedComments to Phleb: IF not already drawn pmxudMMWNIAHCM3940-01-68 04:45:00* Test Item Value Reference Range Interpretation Comments MAGNESIUM (test code = MAG) 1.8 mg/dL 1.6-2.3 N Spec Comments: Order to be discontinued when PN is stoppedComments to Phleb: IF not already drawn todayMARSH[facility] W/AUTO [id number] 04:32:00* Test Item Value Reference Range Interpretation [...] Phleb: IF not already drawn todayBASIC METABOLIC UZYOT8199-26-69 05:55:00* Test Item Value Reference Range Interpretation [...] stoppedComments to Phleb: IF not already drawn jjcvhDMDRWFIXEAO4088-67-57 05:55:00* Test Item Value Reference Range Interpretation Comments PHOSPHOROUS (test code = PHOS) 3.7 mg/dL 2.5-4.5 N Spec Comments: Order to be discontinued when PN is stoppedComments to Phleb: IF not already drawn teogvYVRRLSVPA9806-72-61 05:55:00* Test Item Value Reference Range Interpretation Comments MAGNESIUM (test code = MAG) 1.9 mg/dL 1.6-2.3 N Spec Comments: Order to be discontinued when PN is stoppedComments to Phleb: IF not already drawn todayCBC W/AUTO [id number] 05:32:00* Test Item Value Reference Range Interpretation [...] stoppedComments to Phleb: [facility] MET[facility]OL[facility] [id number] 04:16:00* Test Item Value Reference Range Interpretation [...] stoppedComments to Phleb: IF not already drawn krogaHVYLINKWYFB5045-00-01 04:16:00* Test Item Value Reference Range Interpretation Comments PHOSPHOROUS (test code = PHOS) 3.8 mg/dL 2.5-4.5 N Spec Comments: Order to be discontinued when PN is stoppedComments to Phleb: IF not already drawn [id number] 04:16:00* Test Item Value Reference Range Interpretation Comments MAGNESIUM (test code = MAG) 2.0 mg/dL 1.6-2.3 N Spec Comments: Order to be discontinued when PN is stoppedComments to Phleb: IF not already drawn todayCBC W/AUTO [id number] 03:53:00* Test Item Value Reference Range Interpretation [...] IF not already drawn today- SP FELIX [id number] 10:59:00 [place]: CAT St: ADM Name: LAVONNE BAEZA [facility] : [birth year] Age/S: 57/M [address] Unit #: [id number] Loc: C.3317 [place] [address] Phys: Jayde Lee DO Acct: [id number] Dis Date: Status: ADM IN PHONE #: [phone] Exam Date: 09/25/2018 1033 FAX #: [phone] Reason: EXAMS: CPT CODE: [id number] SP FLUORO NDL 76891 Exam: 1. Percutaneous ultrasound/fluoroscopic guided gastrostomy tube [...] Gy PAGE 1 Signed Report (C ONTINUED) [place]: St: ADM Name: LAVONNE CONTRERAS [facility] : 1960 Age/S: 57/M [address] Unit #: [id number] Loc: C.3317 [place] [address] Phys: Liana Lee DO Acct: [id number] Dis Date: Status: ADM IN PHONE #: [phone] Exam Date: 09/25/2018 5939 FAX #: [phone] Reason: EXAMS: CPT CODE: [id number] SP FLUORO NDL 18738 <Continued> Discussion: Initial preliminary images demonstrate multiple [...] Juan Ramon Rodríguez M.D. CC: Technologist: Tatyana Grovesdeteresa Date/Time/By: 09/25/2018 (1059) : By: Gurwinder PAGE 2 Signed Report [place]: St: ADM Name: LAVONNE CONTRERAS [facility] : 1960 Age/S: 57/M [address] Unit #: [id number] Loc: C.3317 [place], [place] [address] Phys: Jayde Lee DO Acct: [id number] Dis Date: Status: ADM IN PHONE #: [phone] Exam Date: 09/25/2018 1033 FAX #: [phone] Reason: EXAMS: C PT CODE: [id number] SP FLUORO NDL 84158 <Continued> Orig Print D/T: S: 09/25/2018 (7424) PAGE 3 Signed Report BASIC METABOLIC [id number] 04:54:00* Test Item Value Reference Range Interpretation [...] stoppedComments to Phleb: IF not already drawn [id number] 04:54:00* Test Item Value Reference Range Interpretation Comments PHOSPHOROUS (test code = PHOS) 4.9 mg/dL 2.5-4.5 H Spec Comments: Order to be discontinued when PN is stoppedComments to Phleb: IF not already drawn [id number] 04:54:00* Test Item Value Reference Range Interpretation Comments MAGNESIUM (test code = MAG) 2.2 mg/dL 1.6-2.3 N Spec Comments: Order to be discontinued when PN is stoppedComments to Phleb: IF not already drawn todayCBC W/AUTO [id number] 04:11:00* Test Item Value Reference Range Interpretation [...] Phleb: IF not already drawn todayBASI METABOLIC [id number] 06:53:00* Test Item Value Reference Range Interpretation [...] Phleb: IF not already drawn todaySpec Comments: xmu5Rmqm Comments: DAY 3PHOSPHOROUS 2018-09-24 06:53:00* Test Item Value Reference Range Interpretation Comments PHOSPHOROUS (test code = PHOS) 4.7 mg/dL 2.5-4.5 H Spec Comments: Order to be discontinued when PN is stoppedComments to Phleb: IF not already drawn todaySpec Comments: lmc6Wfcv Comments: DAY 3TRIGLYCERIDES 2018-09-24 06:53:00* Test Item Value Reference Range Interpretation Comments TRIGLYCERIDES (test code = TRIG) 281 mg/dL TRIGLYCERIDES REFERENCE RANGE:Normal: <150 mg/dLBorderline High: 150-199 mg/dLHigh: 200-499 mg/dLVery High: >=500 mg/dL Spec Comments: Order to be discontinued when PN is stoppedComments to Phleb: IF not already drawn todaySpec Comments: mih4Nkua Comments: DAY 3MAGNESIUM 2018-09-24 06:53:00* Test Item Value Reference Range Interpretation Comments MAGNESIUM (test code = MAG) 2.1 mg/dL 1.6-2.3 N Spec Comments: Order to be discontinued when PN is stoppedComments to Phleb: IF not already drawn todaySpec Comments: rto0Yhob Comments: DAY 3PREALBUMIN 2018-09-24 06:53:00* Test Item Value Reference Range Interpretation Comments PREALBUMIN (test code = PREALB) 24.65 mg/dL 17.6-36.0 N Spec Comments: Order to be discontinued when PN is stoppedComments to Phleb: IF not already drawn todaySpec Comments: xhz9Awmo Comments: DAY 3BASIC METABOLIC [id number] 06:46:00* Test Item Value Reference Range Interpretation [...] Phleb: IF not already drawn todaySpec Comments: [id number] Comments: DAY 3PHOSPHOROUS 2018-09-24 06:46:00* Test Item Value Reference Range Interpretation Comments PHOSPHOROUS (test code = PHOS) mg/dL 2.5-4.5 Spec Comments: Order to be discontinued when PN is stoppedComments to Phleb: IF not already drawn todaySpec Comments: aax4Cfxe Comments: DAY 3TRIGLYCERIDES 2018-09-24 06:46:00* Test Item Value Reference Range Interpretation Comments TRIGLYCERIDES (test code = TRIG) mg/dL Spec Comments: Order to be discontinued when PN is stoppedComments to Phleb: IF not already drawn todaySpec Comments: ybj4Uymv Comments: DAY 3MAGNESIUM 2018-09-24 06:46:00* Test Item Value Reference Range Interpretation Comments MAGNESIUM (test code = MAG) mg/dL 1.6-2.3 Spec Comments: Order to be discontinued when PN is stoppedComments to Phleb: IF not already drawn todaySpec Comments: tse0Iujq Comments: DAY 3PREALBUMIN 2018-09-24 06:46:00* Test Item Value Reference Range Interpretation Comments PREALBUMIN (test code = PREALB) mg/dL 17.6-36.0 Spec Comments: Order to be discontinued when PN is stoppedComments to Phleb: IF not already drawn todaySpec Comments: ufu9Jwno Comments: DAY 3BASIC METABOLIC [id number] 06:46:00* Test Item Value Reference Range Interpretation [...] Phleb: IF not already drawn todaySpec Comments: ian0Aepe Comments: DAY 3PHOSPHOROUS 2018-09-24 06:46:00* Test Item Value Reference Range Interpretation Comments PHOSPHOROUS (test code = PHOS) 4.7 mg/dL 2.5-4.5 H Spec Comments: Order to be discontinued when PN is stoppedComments to Phleb: IF not already drawn todaySpec Comments: wws9Ukas Comments: DAY 3TRIGLYCERIDES 2018-09-24 06:46:00* Test Item Value Reference Range Interpretation Comments TRIGLYCERIDES (test code = TRIG) 281 mg/dL TRIGLYCERIDES REFERENCE RANGE:Normal: <150 mg/dLBorderline High: 150-199 mg/dLHigh: 200-499 mg/dLVery High: >=500 mg/dL Spec Comments: Order to be discontinued when PN is stoppedComments to Phleb: IF not already drawn todaySpec Comments: kuk5Jdtj Comments: DAY 3MAGNESIUM 2018-09-24 06:46:00* Test Item Value Reference Range Interpretation Comments MAGNESIUM (test code = MAG) 2.1 mg/dL 1.6-2.3 N Spec Comments: Order to be discontinued when PN is stoppedComments to Phleb: IF not already drawn todaySpec Comments: nat5Gymy Comments: DAY 3PREALBUMIN 2018-09-24 06:46:00* Test Item Value Reference Range Interpretation Comments PREALBUMIN (test code = PREALB) mg/dL 17.6-36.0 Spec Comments: Order to be discontinued when PN is stoppedComments to Phleb: IF not already drawn todaySpec Comments: wak9Uedq Comments: DAY 3PROTHROMBIN TIME 2018-09-24 06:27:00* Test [...] En oxaprin (Lovenox)Spec Comments: day 3CBC W/AUTO [id number] 06:26:00* Test Item Value Reference Range Interpretation [...] Phleb: IF not already drawn todayBASI METABOLIC [id number] 05:29:00* Test Item Value Reference Range Interpretation [...] stoppedComments to Phleb: IF not already drawn inoqrDPDNIQMLTDN7847-15-76 05:29:00* Test Item Value Reference Range Interpretation Comments PHOSPHOROUS (test code = PHOS) 3.8 mg/dL 2.5-4.5 N Spec Comments: Order to be discontinued when PN is stoppedComments to Phleb: IF not already drawn zexvcAMWYVDQKS6613-34-56 05:29:00* Test Item Value Reference Range Interpretation Comments MAGNESIUM (test code = MAG) 1.7 mg/dL 1.6-2.3 N Spec Comments: Order to be discontinued when PN is stoppedComments to Phleb: IF not already drawn todayCBC W/AUTO [id number] 05:12:00* Test Item Value Reference Range Interpretation [...] not already drawn today- XR CHEST 1 [id number] 14:11:00 FAX: Luis Enrique Daniel MD [phone] [place]: St: ADM FAX: Katy Pro MD [phone] Name: LAVONNE CONTRERAS [facility] : 1960 Age/S: 57/M [address] Unit #: [id number] Loc: C.37[address] [place] [address] Phys: Luis Enrique Orellana MD Acct: [id number] Dis Date: Status: ADM IN PHONE #: [phone] Exam Date: 09/22/2018 1230 FAX #: [phone] Reason: CHECK FOR PICC LINE P LACEMENT EXAMS: CPT CODE: [id number] XR CHEST 1 V 23435 Location: B2. CHEST, FRONTAL VIEW HISTORY: CHECK [...] Enrique Orellana MD; Katy Haines MD Technologist: iDlcia Drew Trnderd Date/Time/By: 09/22/2018 (1411) : By: [email or web address] PAGE 1 Signed Report FAX: Luis Enrique Daniel MD [phone] [place]: St: ADM FAX: Katy Pro MD [phone] [facility] [place] [facility] 1960 Age/S: 57/M [address] Unit #: [id number] Loc: C.5[address] [place] [address] Phys: Luis Enrique Orellana MD Acct: [id number] Dis Date: Status: ADM IN PHONE #: [phone] Exam Date: 09/22/2018 1230 FAX #: [phone] Reason: CHECK FOR PICC LINE PLACEMENT EXAMS: CPT CODE: [id number] XR CHEST 1 V 60568 <Continued> Orig Print D/T: S: 09/22/2018 (7468) PAGE 2 Signed Report - XR ABDOMEN [id number] 14:08:00 FAX: Luis Enrique Daniel MD [phone] [place]: St: ADM FAX: Katy Pro MD [phone] Name: LAVONNE CONTRERAS [facility] : 1960 Age/S: 57/M [address] Unit #: [id number] Loc: C.33[address] [place] [address] Phys: Luis Enrique Orellana MD Acct: [id number] Dis Date: Status: ADM IN PHONE #: [phone] Exam Date: 09/22/2018 1230 FAX #: [phone] Reason: f/u ileus EXAMS: CPT CODE: [id number] XR ABDOMEN 2V 63158 EXAM: Abdominal x-ray, 2 views Location: T18 [...] Signed Report FAX: Luis Enrique Daniel MD [phone] [place]: St: ADM FAX: Katy Pro MD [phone] Name: LAVONNE STAFFORD [facility] : 1960 A ge/S: 57/M [address] Unit #: [id number] Loc : C.33[address] [place] [address] Phys: Luis Enrique Orellana MD Acct: [id number] Dis Date: Status: ADM IN PHONE #: [phone] E xam Date: 09/22/2018 1230 FAX #: [phone] Reas on: f/u ileus EXAMS: CPT CODE: [id number] XR ABDOMEN 2V 13662 <Continued> Orig Print D/T: S: 09/22/2018 (7186) PAGE 2 Signed Report BASIC METABOLIC [id number] 12:31:00* Test Item Value Reference Range Interpretation [...] Comments: IF not already drawn todaySpec Comments: [id number] 2018-09-22 12:31:00* Test Item Value Reference Range Interpretation Comments PHOSPHOROUS (test code = PHOS) mg/dL 2.5-4.5 Spec Comments: IF not already drawn todaySpec Comments: [id number] 2018-09-22 12:31:00* Test Item Value Reference Range Interpretation Comments TRIGLYCERIDES (test code = TRIG) mg/dL Spec Comments: IF not already drawn todaySpec Comments: [id number] 12:31:00* Test Item Value Reference Range Interpretation Comments MAGNESIUM (test code = MAG) mg/dL 1.6-2.3 Spec Comments: IF not already drawn todaySpec Comments: IOE6AOIMH METABOLIC [id number] 12:31:00* Test Item Value Reference Range Interpretation [...] Comments: IF not already drawn todaySpec Comments: [id number] 2018-09-22 12:31:00* Test Item Value Reference Range Interpretation Comments PHOSPHOROUS (test code = PHOS) 3.1 mg/dL 2.5-4.5 N Spec Comments: IF not already drawn todaySpec Comments: [id number] 2018-09-22 12:31:00* Test Item Value Reference Range Interpretation Comments TRIGLYCERIDES (test code = TRIG) 287 mg/dL TRIGLYCERIDES REFERENCE RANGE:Normal: <150 mg/dLBorderline High: 150-199 mg/dLHigh: 200-499 mg/dLVery High: >=500 mg/dL Spec Comments: IF not already drawn todaySpec Comments: [id number] 12:31:00* Test Item Value Reference Range Interpretation Comments MAGNESIUM (test code = MAG) 1.7 mg/dL 1.6-2.3 N Spec Comments: IF not already drawn todaySpec Comments: [id number] TIME 2018-09-22 12:17:00* Test Item Value Reference [...] ANTICOAGULANT/ANTI PLT MEDICATION: Akil ferro (SQ)Spec Comments: UIC1NBA W/AUTO [id number] 12:11:00* Test Item Value Reference Range Interpretation [...] 0.08 x10 3/uL 0.0-0.1 N CBC W/MANUAL [id number] 03:32:00* Test Item Value Reference Range Interpretation [...] code = PLTMORPH) NORMAL NORMAL BASIC METABOLIC [id number] 03:09:00* Test Item Value Reference Range Interpretation [...] code = CA) 9.3 mg/dL 8.4-10.2 N [id number] 03:09:00* Test Item Value Reference Range Interpretation Comments PHOSPHOROUS (test code = PHOS) 3.1 mg/dL 2.5-4.5 N [id number] 03:09:00* Test Item Value Reference Range Interpretation Comments MAGNESIUM (test code = MAG) 2.1 mg/dL 1.6-2.3 N CBC W/MANUAL [id number] 03:01:00* Test Item Value Reference Range Interpretation [...] code = LYMPH) % 20.5-45.5 CBC W/MANUAL [id number] 03:01:00* Test Item Value Reference Range Interpretation [...] code = LYMPH) % 20.5-45.5 CBC W/MANUAL [id number] 07:34:00* Test Item Value Reference Range Interpretation [...] LARGE PLATELETS SEEN NOR MAL BASIC METABOLIC [id number] 07:03:00* Test Item Value Reference Range Interpretation [...] code = CA) 9.2 mg/dL 8.4-10.2 N [id number] 07:03:00* Test Item Value Reference Range Interpretation Comments PHOSPHOROUS (test code = PHOS) 3.1 mg/dL 2.5-4.5 N [id number] 07:03:00* Test Item Value Reference Range Interpretation Comments MAGNESIUM (test code = MAG) 2.2 mg/dL 1.6-2.3 N BASIC METABOLIC [id number] 06:52:00* Test Item Value Reference Range Interpretation [...] code = CA) 9.2 mg/dL 8.4-10.2 N [id number] 06:52:00* Test Item Value Reference Range Interpretation Comments PHOSPHOROUS (test code = PHOS) mg/dL 2.5-4.5 [id number] 06:52:00* Test Item Value Reference Range Interpretation Comments MAGNESIUM (test code = MAG) mg/dL 1.6-2.3 CBC W/MANUAL [id number] 06:33:00* Test Item Value Reference Range Interpretation [...] code = LYMPH) % 20.5-45.5 CBC W/MANUAL [id number] 06:33:00* Test Item Value Reference Range Interpretation [...] code = LYMPH) % 20.5-45.5 CBC W/MANUAL [id number] 07:52:00* Test Item Value Reference Range Interpretation [...] code = PLTMORPH) NORMAL NORMAL BASIC METABOLIC [id number] 07:43:00* Test Item Value Reference Range Interpretation [...] code = CA) 9.1 mg/dL 8.4-10.2 N [id number] 07:43:00* Test Item Value Reference Range Interpretation Comments PHOSPHOROUS (test code = PHOS) 4.0 mg/dL 2.5-4.5 N [id number] 07:43:00* Test Item Value Reference Range Interpretation Comments MAGNESIUM (test code = MAG) 2.4 mg/dL 1.6-2.3 H CBC W/MANUAL [id number] 07:20:00* Test Item Value Reference Range Interpretation [...] code = LYMPH) % 20.5-45.5 CBC W/MANUAL [id number] 07:20:00* Test Item Value Reference Range Interpretation [...] code = LYMPH) % 20.5-45.5 BASIC METABOLIC [id number] 08:05:00* Test Item Value Reference Range Interpretation [...] code = CA) 9.2 mg/dL 8.4-10.2 N [id number] 08:05:00* Test Item Value Reference Range Interpretation Comments PHOSPHOROUS (test code = PHOS) 4.6 mg/dL 2.5-4.5 H [id number] 08:05:00* Test Item Value Reference Range Interpretation Comments MAGNESIUM (test code = MAG) 2.5 mg/dL 1.6-2.3 H BASIC METABOLIC [id number] 08:04:00* Test Item Value Reference Range Interpretation [...] code = CA) 9.2 mg/dL 8.4-10.2 N [id number] 08:04:00* Test Item Value Reference Range Interpretation Comments PHOSPHOROUS (test code = PHOS) mg/dL 2.5-4.5 [id number] 08:04:00* Test Item Value Reference Range Interpretation Comments MAGNESIUM (test code = MAG) mg/dL 1.6-2.3 BASIC METABOLIC [id number] 07:27:00* Test Item Value Reference Range Interpretation Comments SODIUM (test code = NA) TEST NOT PERFORMED mmol/L 137-145 TEST NOT PERFORMED. POSSIBLE CONTAMINATION. SUGGESTSRECOLLECTION. INFORMED [id number] reported result: 129 mmol/LEdited by: NAYELI on 09/18/18:0726~~ Corrected Report ~~Reason (required): BASIC METABOLIC [id number] 07:12:00* Test Item Value Reference Range Interpretation [...] code = CA) 9.2 mg/dL 8.4-10.2 N HTMJICPQSEX2687-31-00 07:12:00* Test Item Value Reference Range Interpretation Comments PHOSPHOROUS (test code = PHOS) 9.2 mg/dL 2.5-4.5 H [id number] 07:12:00* Test Item Value Reference Range Interpretation Comments MAGNESIUM (test code = MAG) 2.9 mg/dL 1.6-2.3 H CBC W/MANUAL [id number] 07:00:00* Test Item Value Reference Range Interpretation [...] code = PLTMORPH) NORMAL NORMAL CBC W/MANUAL [id number] 06:25:00* Test Item Value Reference Range Interpretation [...] code = LYMPH) % 20.5-45.5 CBC W/MANUAL [id number] 06:25:00* Test Item Value Reference Range Interpretation [...] = LYMPH) % 20.5-45.5 - XR SMALL [id number] 06:04:00 FAX: Luis nErique Daniel MD [phone] [place]: St: ADM FAX: Katy Pro MD [phone] Name: LAVONNE CONTRERAS [facility] : 1960 Age/S: 57/M [address] Unit #: [id number] Loc: C.3317 [place] [address] Phys: Luis Enrique Orellana MD Acct: [id number] Dis Date: Status: ADM IN PHONE #: [phone] Exam Date: 09/17/20182011 FAX #: [phone] Reason: SBO EXAMS: CPT CODE: [id number] XR SMALL BOWEL 23446 HISTORY: Male, 57 years of age with SBO EXAM: Small bowel series. COMPARISON: Correlation made with CT abdomen and pelvis with IV contrast performed 08/13/2018; small bowel series performed 08/14/2018 TECHNIQUE: The patient was given Gastrografin through the enteric tube and sequential images were obtained of the abdomen over t esperanza. The study was carried out to 8 hours. 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 over [...] 1 Signed Report FAX: Maddy Daniel MD [phone] [place]: St: ADM FAX: Katy Pro MD [phone] Name: LAVONNE CONTRERAS [facility] : 1960 Age/S: 57/M [address] Unit #: [id number] Loc: C.33[address] [place] [address] Phys: Luis Enrique Orellana MD Acct: [id number] Dis Date: Status: ADM IN PHONE #: [phone] Exam Date: 09/17/20182011 FAX #: [phone] Reason: SBO EXAMS: CPT CODE: [id number] XR SMALL BOWEL 73403 <Continued> Orig Print D/T: S: 09/18/2018 (0607) PAGE 2 Signed Report CBC W/MANUAL [id number] 08:27:00* Test Item Value Reference Range Interpretation [...] PLATELET CLUMPS SEEN NOR MAL BASIC METABOLIC [id number] 07:36:00* Test Item Value Reference Range Interpretation [...] code = CA) 9.2 mg/dL 8.4-10.2 N [id number] 07:36:00* Test Item Value Reference Range Interpretation Comments PHOSPHOROUS (test code = PHOS) 3.8 mg/dL 2.5-4.5 N [id number] 07:36:00* Test Item Value Reference Range Interpretation Comments MAGNESIUM (test code = MAG) 2.3 mg/dL 1.6-2.3 N BASIC METABOLIC [id number] 07:35:00* Test Item Value Reference Range Interpretation [...] code = CA) 9.2 mg/dL 8.4-10.2 N [id number] 07:35:00* Test Item Value Reference Range Interpretation Comments PHOSPHOROUS (test code = PHOS) mg/dL 2.5-4.5 [id number] 07:35:00* Test Item Value Reference Range Interpretation Comments MAGNESIUM (test code = MAG) mg/dL 1.6-2.3 CBC W/MANUAL [id number] 07:21:00* Test Item Value Reference Range Interpretation [...] code = LYMPH) % 20.5-45.5 CBC W/MANUAL [id number] 07:21:00* Test Item Value Reference Range Interpretation [...] LYMPH) % 20.5-45.5 - XR CHEST 1 [id number] 23:16:00 FAX: Luis Enrique Daniel MD [phone] [place]: [facility]: [facility] FAX: Katy Pro MD [phone] Name: LAVONNE CONTRERAS [place] : 1960 Age/S: 57/M [address] Unit #: [id number] Loc: C.33[address] [place] [address] Phys: Luis Enrique Orellana MD Acct: [id number] Dis Date: Status: ADM IN PHONE #: [phone] Exam Date: 09/16/2018 2300 FAX #: [phone] Reason: NG TUBE PLACEMENT EXAMS: CPT CODE: [id number] XR CHEST 1 V 91379 EXAM: Portable chest one view. Location code:J9 [...] No active disease in the chest. at 6094 Reported and signed by: Cory Barrios MD CC: Luis Enrique Orellana MD; Katy Haines MD Technologist: YANA SHEARER RT (R) Trnscrd Date/Time/By: 09/16/2018 (8323) : By: [email or web address] PAGE 1 Signed Report FAX: Luis Enrique Daniel MD [phone] [place]: [facility]: ADM FAX: Katy Pro MD [phone] Name: LAVONNE CONTRERAS : 1960 Age /S: 57/M [address] Unit #: [id number] Loc: C.33[address] [place] [address] Phys: Luis Enrique Orellana MD Acct: [id number] Dis Date: Status: ADM IN PHONE #: [phone] Exam Date: 09/16/2018 2300 FAX #: [phone] Reason: NG TUBE PLACEMENT EXAMS: CPT CODE: [id number] XR CHEST 1 V 44165 <Continued> Orig Print D/T: S: 09/16/2018 (2924) PAGE 2 Signed Report BASIC METABOLIC PANEL [...] code = CA) 8.8 mg/dL 8.4-10.2 N [id number] 06:06:00* Test Item Value Reference Range Interpretation Comments PHOSPHOROUS (test code = PHOS) 3.3 mg/dL 2.5-4.5 N [id number] 06:06:00* Test Item Value Reference Range Interpretation Comments MAGNESIUM (test code = MAG) 2.3 mg/dL 1.6-2.3 N PROTHROMBIN [id number] 05:58:00* Test Item Value Reference Range Interpretation [...] ? YESLIST ANTICOAGULANT/ANTI PLT MEDICATION: venoxTHROMBOPLASTIN TIME [id number] 05:58:00* Test Item Value Reference Range Interpretation Comments THROMBOPLASTIN TIME PARTIAL (test code = PTT) 23.6 SECONDS 23.4-37. 0 N Therapeutic Range for Heparin EFFECTIVE 11/12/12 Heparin IU/mL aPTT Seconds0.3 64.30.7 88.8 IS PATIENT ON ANTICOAGULANTS ? YESLIST ANTICOAGULANT/ANTI PLT MEDICATION: Lo venoxCBC W/AUTO [id number] 05:49:00* Test Item Value Reference Range Interpretation [...] 3/uL 0.0-0.1 N - XR CHEST 1 [id number] 17:08:00 FAX: Luis Enrique Daniel MD [phone] [place]: St: [facility] FAX: Katy Pro MD [phone] Name: LAVONNE CONTRERAS [facility] : 1960 Age/S: 57/M [address] Unit #: [id number] Loc: C.0047 [place] [address] Phys: Luis Enrique Orellana MD Acct: [id number] Dis Date: Status: ADM IN PHONE #: [phone] Exam Date: 09/15/2018 1704 FAX #: [phone] Reason: PICC LINE PALCEMENT EXAMS: CPT CODE: [id number] XR CHEST 1 V 23051 REASON FOR EXAM: PICC line placement. COMPARISON: [...] VELAZQUEZ Trnscrd Date/Time/By: 09/15/2018 (1708) : By: [facility] PAGE 1 Signed Report FAX: Luis Enrique Daniel MD [phone] [place]: St: ADM FAX: Katy Pro MD [phone] -------- Name: LAVONNE CONTRERAS [facility] : 1960 Age/S: 57/M [address] Unit #: [id number] Loc: C.33[address] [place] [address] Phys: Luis Enrique Orellana MD Acct: [id number] Dis Date: Status: ADM IN PHONE #: [phone] Exam Date: 09/15/2018 1704 FAX #: [phone] Reason: PICC LINE PALCEMENT EXAMS: CPT CODE: [id number] XR CHEST 1 V 87134 <Continued> Orig Print D/T: S: 09/15/2018 (4601) PAGE 2 Signed Report - XR ABDOMEN 1 V 2018-09-15 13:49:00 FAX: Katy Pro MD [phone] [place]: St: ADM Name: LAVONNE BAEZA [facility] : [birth year] Age/S: 57/M [address] Unit #: [id number] Loc: C.33[address] [place] [address] Phys: Katy Haines MD Acct: [id number] Dis Date: Status: ADM IN PHONE #: [phone] Exam Date: 09/15/2018 1135 FAX #: [phone] Reason: ileus/sbo EXAMS: CPT CODE: [id number] XR ABDOMEN 1 V [id number] EXAM: - XR ABDOMEN 1 V HISTORY: [...] MD Technologist: Jinny Kaur Trnscrd Date/Time/By: 09/15/2018 (3993) : By: [email or web address] PAGE 1 Signed Report FAX: Y Katy Haines MD [phone] [place]: St: ADM --------- Name: LAVONNE CONTRERAS [facility] : 1960 Age/S: 57/M [address] Un it #: [id number] Loc: C.33[address] [place] [address] Phys: Katy Haines MD Acct: [id number] Dis Date: Status: ADM IN PH ONE #: [phone] Exam Date: 09/15/2018 1135 FAX #: [phone] Reason: ileus/sbo EXAMS: CPT CODE: [id number] XR ABDOMEN 1 V 67215 <Continued> Orig Print D/T: S: 09/15/2018 (0389) PAGE 2 Signed Report BASIC METABOLIC [id number] 09:26:00* Test Item Value Reference Range Interpretation [...] code = CA) 8.4 mg/dL 8.4-10.2 N [id number] 09:26:00* Test Item Value Reference Range Interpretation Comments PHOSPHOROUS (test code = PHOS) 2.7 mg/dL 2.5-4.5 N [id number] 09:26:00* Test Item Value Reference Range Interpretation Comments MAGNESIUM (test code = MAG) 2.4 mg/dL 1.6-2.3 H BASIC METABOLIC [id number] 09:06:00* Test Item Value Reference Range Interpretation [...] code = CA) 8.4 mg/dL 8.4-10.2 N [id number] 09:06:00* Test Item Value Reference Range Interpretation Comments PHOSPHOROUS (test code = PHOS) 2.7 mg/dL 2.5-4.5 N [id number] 09:06:00* Test Item Value Reference Range Interpretation Comments MAGNESIUM (test code = MAG) mg/dL 1.6-2.3 CBC W/AUTO [id number] 08:43:00* Test Item Value Reference Range Interpretation [...] BA#) 0.05 x10 3/uL 0.0-0.1 N LACTIC [id number] 16:39:00* Test Item Value Reference Range Interpretation Comments LACTIC ACID (test code = LACT) 0.7 mmol/L 0.7-2.0 N - XR CHEST 1 [id number] 14:36:00 FAX: Katy Pro MD [phone] [place]: St: ADM Name: LAVONNE BAEZA [facility] : 10/20/18 [birth year] Age/S: 57/M [address] Unit #: [id number] Loc: C.[address] [place] [address] Phys: Katy Haines MD Acct: [id number] Dis Date: Status: ADM IN PHONE #: [phone] Exam Date: 09/14/2018 1220 FAX #: [phone] Reason: R/O ASPIRATION EXAMS: CPT CODE: [id number] XR CHEST 1 V 01769 LOCATION: T18 EXAM: CHEST 1 VIEW INDICATION: [...] MD Technologist: Joanie Boswell Trnscrd Date/Time/By: 09/14/2018 (6646) : By: [email or web address] PAGE 1 Signed Report FAX: Katy Pro MD [phone] [place]: St: ADM Name: LAVONNE CONTRERAS : 1960 Age/S: 57/M [address] Unit #: [id number] Loc: C.[address] [place] [address] Phys: Katy Haines MD Acct: [id number] Dis Date: Status: ADM IN PHONE #: [phone] Exam Date: 09/14/2018 1220 FAX #: [phone] Reason: R/O ASPIRATION EXAMS: CPT CODE: [id number] XR CHEST 1 V 53424 < Continued> Orig Print D/T: S: 09/14/2018 (4810) PAGE 2 Signed Report BASIC METABOLIC [id number] 05:58:00* Test Item Value Reference Range Interpretation [...] code = CA) 8.7 mg/dL 8.4-10.2 N [id number] 05:58:00* Test Item Value Reference Range Interpretation Comments PHOSPHOROUS (test code = PHOS) 4.1 mg/dL 2.5-4.5 N [id number] 05:58:00* Test Item Value Reference Range Interpretation Comments MAGNESIUM (test code = MAG) 2.1 mg/dL 1.6-2.3 N CBC W/AUTO [id number] 05:33:00* Test Item Value Reference Range Interpretation [...] x10 3/uL 0.0-0.1 N - XR ABDOMEN [id number] 18:10:00 FAX: Luis Enrique Daniel MD [phone] [place]: St: ADM FAX: Katy Pro MD [phone] Name: LAVONNE CONTRERAS [facility] : 1960 Age/S: 57/M [address] Unit #: [id number] Loc: C.[address] [place] [address] Phys: Luis Enrique Orellana MD Acct: [id number] Dis Date: Status: ADM IN PHONE #: [phone] Exam Date: 09/13/2018 1639 FAX #: [phone] Reason: SBO EXAMS: CPT CODE: [id number] XR ABDOMEN 2V 66023 LOCATION: T18 EXAM: - XR ABDOMEN 2V [...] Signed Report FAX: Luis Enrique Daniel MD [phone] [place]: St: ADM FAX: Katy Pro MD ---- Name: LAVONNE CONTRERAS [facility] : 1960 Age/S: 57/M [address] Unit #: [id number] Loc: C.[address] [place] [address] Phys: Luis Enrique Orellana MD Acct: [id number] Dis Date: Status: ADM IN PHONE # : [phone] Exam Date: 09/13/2018 1639 FAX #: Reason: SBO EXAMS : CPT CODE: [id number] XR ABDO MEN 2V 91065 <Continued> Orig Print D/T: S: 09/13/2018 (1812) PAGE 2 Signed Report BASIC METABOLIC [id number] 08:07:00* Test Item Value Reference Range Interpretation [...] code = CA) 9.0 mg/dL 8.4-10.2 N [id number] 08:07:00* Test Item Value Reference Range Interpretation Comments PHOSPHOROUS (test code = PHOS) 4.6 mg/dL 2.5-4.5 H [id number] 08:07:00* Test Item Value Reference Range Interpretation Comments TRIGLYCERIDES (test code = TRIG) 314 mg/dL TRIGLYCERIDES REFERENCE RANGE:Normal: <150 mg/dLBorderline High: 150-199 mg/dLHigh: 200-499 mg/dLVery High: >=500 mg/dL [id number] 08:07:00* Test Item Value Reference Range Interpretation Comments MAGNESIUM (test code = MAG) 2.2 mg/dL 1.6-2.3 N BASIC METABOLIC [id number] 08:06:00* Test Item Value Reference Range Interpretation [...] code = CA) 9.0 mg/dL 8.4-10.2 N [id number] 08:06:00* Test Item Value Reference Range Interpretation Comments PHOSPHOROUS (test code = PHOS) mg/dL 2.5-4.5 [id number] 08:06:00* Test Item Value Reference Range Interpretation Comments TRIGLYCERIDES (test code = TRIG) mg/dL [id number] 08:06:00* Test Item Value Reference Range Interpretation Comments MAGNESIUM (test code = MAG) mg/dL 1.6-2.3 PROTHROMBIN [id number] 07:54:00* Test Item Value Reference Range Interpretation [...] IS PATIENT ON ANTICOAGULANTS ? NOCBC W/AUTO [id number] 07:44:00* Test Item Value Reference Range Interpretation [...] = BA#) 0.05 x10 3/uL 0.0-0.1 N [id number] 16:05:00* Test Item Value Reference Range Interpretation Comments POTASSIUM (test code = K) 3.5 mmol/L 3.4-5.0 N BASIC METABOLIC [id number] 06:23:00* Test Item Value Reference Range Interpretation [...] code = CA) 8.9 mg/dL 8.4-10.2 N [id number] 06:23:00* Test Item Value Reference Range Interpretation Comments PHOSPHOROUS (test code = PHOS) 4.0 mg/dL 2.5-4.5 N [id number] 06:23:00* Test Item Value Reference Range Interpretation Comments MAGNESIUM (test code = MAG) 2.2 mg/dL 1.6-2.3 N BASIC METABOLIC [id number] 06:15:00* Test Item Value Reference Range Interpretation [...] code = CA) 8.9 mg/dL 8.4-10.2 N [id number] 06:15:00* Test Item Value Reference Range Interpretation Comments PHOSPHOROUS (test code = PHOS) mg/dL 2.5-4.5 [id number] 06:15:00* Test Item Value Reference Range Interpretation Comments MAGNESIUM (test code = MAG) mg/dL 1.6-2.3 CBC W/AUTO [id number] 05:47:00* Test Item Value Reference Range Interpretation [...] 0.06 x10 3/uL 0.0-0.1 N BASIC METABOLIC [id number] 08:44:00* Test Item Value Reference Range Interpretation [...] code = CA) 8.7 mg/dL 8.4-10.2 N [id number] 08:44:00* Test Item Value Reference Range Interpretation Comments PHOSPHOROUS (test code = PHOS) 3.0 mg/dL 2.5-4.5 N [id number] 08:44:00* Test Item Value Reference Range Interpretation Comments TRIGLYCERIDES (test code = TRIG) 320 mg/dL TRIGLYCERIDES REFERENCE RANGE:Normal: <150 mg/dLBorderline High: 150-199 mg/dLHigh: 200-499 mg/dLVery High: >=500 mg/dL [id number] 08:44:00* Test Item Value Reference Range Interpretation Comments MAGNESIUM (test code = MAG) 1.9 mg/dL 1.6-2.3 N BASIC METABOLIC [id number] 08:43:00* Test Item Value Reference Range Interpretation [...] code = CA) 8.7 mg/dL 8.4-10.2 N [id number] 08:43:00* Test Item Value Reference Range Interpretation Comments PHOSPHOROUS (test code = PHOS) mg/dL 2.5-4.5 [id number] 08:43:00* Test Item Value Reference Range Interpretation Comments TRIGLYCERIDES (test code = TRIG) mg/dL [id number] 08:43:00* Test Item Value Reference Range Interpretation Comments MAGNESIUM (test code = MAG) mg/dL 1.6-2.3 PROTHROMBIN [id number] 08:39:00* Test Item Value Reference Range Interpretation [...] IS PATIENT ON ANTICOAGULANTS ? NOCBC W/AUTO [id number] 08:33:00* Test Item Value Reference Range Interpretation [...] x10 3/uL 0.0-0.1 N - XR ABDOMEN [id number] 06:12:00 FAX: Luis Enirque Daniel MD [phone] [place]: St: [facility] FAX: Katy Pro MD [phone] Name: LAVONNE CONTRERAS [facility] : 1960 Age/S: 57/M [address] Unit #: [id number] Loc: [address] [place] [address] Phys: Luis Enrique Orellana MD Acct: [id number] Dis Date: Status: ADM IN PHONE #: [phone] Exam Date: 09/11/2018 0450 FAX #: [phone] Reason: NAUSEA AND VOMITING EXAMS: CPT CODE: [id number] XR ABDOMEN 2V 70149 AFTER HOURS SERVICE ON: 09/11/2018 6:11 AM [...] Signed Report FAX: Luis Enrique Daniel MD [phone] [place]: St: ADM FAX: Katy Pro MD [phone] Name: Opal CONTRERAS [facility] : 1960 Age/ S: 57/M [address] Unit #: [id number] Loc: C [address] [place] [address] Phys: Luis Enrique Orellana MD Acct: [id number] Dis Date: Status: ADM IN PHONE #: [phone] Exam Date: 09/11/2018 0450 FAX #: [phone] Reason: NAUSEA AND VOMITING EXAMS: CPT CODE: [id number] XR ABDOMEN 2V 41722 <Continued> Orig Print D/T: S: 09/11/2018 (0616) PAGE 2 Signed Report APPENDIX,OTHER THAN [id number] 20:01:00 RUN DATE: 09/09/18 [facility] PAGE 1 RUN TIME: 2001 Specimen Inqui ry RUN USER: INTERFACE PATIENT: LAVONNE CONTRERAS ACCT #: [id number] LOC: MATEUS U #: [id number] AGE/SX: 57/M ROOM: [facility] RE09/02/18REG DR: Jayde Lee DO : 62 BED: A DIS: STATUS: ADM IN TLOC: SPEC #: [id number] RECD: 09/05/18 STATUS: VICK JOHNSON #: [id number] SORIN: 09/05/18 [facility] DR: Alessandro Galindo ENTERED: 09/05/18 SP TYPE: APPENDIX OTHR DR: Nadya cohen or Family Physician Luis Enrique Orellana MD,Nikos Jenkins MD, MDORDERED: PATHGM3, # OF BLOCKS/2, # OF SLIDES/2 TISSUES: A. APPENDIX, NOS CLIN ICAL HISTORY INCIDENTAL APPENDECTOMY. FINAL MICROSCOPIC DIAGNOSIS VERMIF ORM APPENDIX, INCIDENTAL APPENDECTOMY: VERMIFORM APPENDIX WITH NO PATHOLOGI C CHANGE. CPT: 00275 GROSS DESCRIPTION The specimen is received in [...] and A2. VT/tb Signed SIGNATURE ON FILE hSeridan Ness MD 09/09/182000 END OF REPORT - XR ABDOMEN [id number] 09:19:00 FAX: Luis Enrique Daniel MD [phone] [place]: [facility]: ADM Name: LAVONNE BAEZA [facility] : 10/20/[birth year] 63 Age/S: 57/M [address] Unit #: [id number] Loc: C.[address] [place] [address] Phys: Luis Enrique Orellana MD Acct: [id number] Dis Date: Status: ADM IN PHONE #: [phone] Exam Date: 09/09/2018906 FAX #: [phone] Reason: COMPARE TO LAST SCAN EXAMS: CPT CODE: [id number] XR ABDOMEN 2V 32571 EXAM: - XR ABDOMEN 2V HISTORY: Partial [...] By: [email or web address] PAGE 1 Signed Report FAX: Luis Enrique Daniel MD [phone] [place]: St: ADM------- Name: LAVONNE CONTRERAS : [birth year] Age/S: 57/M [address] Unit #: [id number] Loc: C.[address] [place] [address] Phys: Luis Enrique Orellana MD Acct: [id number] Dis Date: Status: ADM IN PHONE #: [phone] Exam Date: 09/09/2018906 FAX #: [phone] Reason: COMPARE TO LAST SCAN EXAMS: CPT CODE: [id number] XR ABDOMEN 2V 49822 <Continued> Orig Print D/T: S: 09/09/2018 (0922) PAGE 2 Signed Report COMPREHENSIVE METABOLIC [id number] 06:54:00* Test Item Value Reference Range Interpretation [...] code = ALKP) 141 U/L 38-126 H [id number] 06:54:00* Test Item Value Reference Range Interpretation Comments MAGNESIUM (test code = MAG) 1.9 mg/dL 1.6-2.3 N CBC W/AUTO [id number] 06:23:00* Test Item Value Reference Range Interpretation [...] 0.03 x10 3/uL 0.0-0.1 N COMPREHENSIVE METABOLIC [id number] 08:06:00* Test Item Value Reference Range Interpretation [...] code = ALKP) 135 U/L 38-126 H [id number] 08:06:00* Test Item Value Reference Range Interpretation Comments PHOSPHOROUS (test code = PHOS) 2.2 mg/dL 2.5-4.5 L [id number] 08:06:00* Test Item Value Reference Range Interpretation Comments MAGNESIUM (test code = MAG) 2.2 mg/dL 1.6-2.3 N CBC W/AUTO [id number] 07:28:00* Test Item Value Reference Range Interpretation [...] x10 3/uL 0.0-0.1 N - XR ABDOMEN [id number] 23:38:00 FAX: Luis Enrique Daniel MD [phone] [place]: St: [facility] FAX: Suresh Dinero Name: LAVONNE CONTRERAS : 1960 Age/S: 57/M [address] Unit #: [id number] Loc: C.[address] [place] [address] Phys: Luis Enrique Orellana MD Acct: [id number] Dis Date: Status: ADM IN PHONE #: [phone] Exam Date: 09/07/20180 FAX #: [phone] Reason: f/u ileus. s/p bowel resection for sbo EXAMS: CPT CODE: [id number] XR ABDOMEN 2V 29960 HISTORY: Follow-up Location: C3 COMPARISON: 09/03/2018 FINDINGS: [...] by Tony Islas MD on 09/07/2018 at 0068 Re ported and signed by: Tony Islas MD CC: Luis Enrique Orellana MD ; Suresh Gonzalez MD Technologist: Joanie Boswell Trnderd Date/Time/By: 09/07/2018 (6406) : By: Rafia [email or web address] PAGE 1 Signed Report FAX: Luis Enrique Daniel MD [phone] [place]: St: [facility] FAX: Suresh Dinero Name: LAVONNE CONTRERAS : 1960 Age/S: 57/M [address] Unit #: [id number] Loc: C.[address] [place] [address] Phys: Luis Enrique Orellana MD Acct: [id number] Dis Date: Status: ADM IN PHONE #: [phone] Exam Date: 09/07/20182249 FAX #: [phone] Reason: f/u ileus. s/p bowel resection for sbo EXAMS: CPT CODE: [id number] XR ABDOMEN 2V 78669 <Continued> Orig Print D/T: S: 09/07/2018 (2084) PAGE 2 Signed Report ACUTE HEPATITIS [id number] 18:00:00* Test Item Value Reference Range Interpretation [...] code = HCVAB) NEGATIVE NEGATIVE ACUTE HEPATITIS [id number] 17:17:00* Test Item Value Reference Range Interpretation Comments HEP A AB TOTAL ONLY (test code = HAVAB) NEGATIVE HEP A AB IGM QUAL (test code = HAVMAB) NEGATIVE NEGATIVE AG HEPATITIS B SURFACE (test code = HBSAG) NEGATIVE NEGATIVE HEP B CORE AB IGM QL (test code = HBCMAB) NEGATIVE NEGATIVE AB HEPATITIS C (test code = HCVAB) NEGATIVE ACUTE HEPATITIS [id number] 17:07:00* Test Item Value Reference Range Interpretation Comments HEP A AB TOTAL ONLY (test code = HAVAB) NEGATIVE HEP A AB IGM QUAL (test code = HAVMAB) NEGATIVE AG HEPATITIS B SURFACE (test code = HBSAG) NEGATIVE NEGATIVE HEP B CORE AB IGM QL (test code = HBCMAB) NEGATIVE AB HEPATITIS C (test code = HCVAB) NEGATIVE - US ABDOMEN [id number] 10:37:00 FAX: Alessandro Latham MD [phone] [place]: St: ADM FAX: Katy Pro MD [phone] Name: DIANELAVONNE [facility] : 1960 Age/S: 57/M [address] Unit #: [id number] Loc: C.[address] [place] [address] Phys: Katy Haines MD Acct: [id number] Dis Date: Status: ADM IN PHONE #: [phone] Exam Date: 09/04/2018 1023 FAX #: [phone] Reason: ABDOMINAL PAIN WITH T RANSAMINITIS EXAMS: CPT CODE: [id number] US ABDOMEN COMPLETE 87789 Ultrasound abdomen History: ABDOMINAL PAIN WITH TR [...] Signed Report (CONTINUED) FAX: Alessandro Latham MD [phone] [place]: [facility]: ADM FAX: Katy Pro MD [phone] Name: LAVONNE CONTRERAS [facility] : 1960 Age/S: 57/M [address] Unit #: [id number] Loc: C.[address] [place] [address] Phys: Katy Haines MD Acct: [id number] Dis Date: Status: ADM IN PHONE #: [phone] Exam Date: 09/04/2018 1023 FAX #: [phone] Reason: ABDOMINAL PAIN WITH TRANSAMINITIS EXAMS: CPT CODE: [id number] US ABDOMEN COMPLETE 41141 <Continued> CC: Alessandro Galindo MD; Katy Haines MD Technologist: Keiry Crowe RDMS Trnscrd Date/Time/By: 09/04/2018 (1037) : By: Jesús PAGE 2 Signed Report FAX: Alessandro Latham MD [phone] [place]: [facility]: ADM FAX: Katy Pro MD [phone] Name: DIANELAVONNE [facility] : 1960 Age/S: 57/M [address] Unit #: [id number] Loc: C.[address] [place] [address] Phys: Katy Haines MD Acct: [id number] Dis Date: Status: ADM IN PHONE #: [phone] Exam Date: 09/04/2018 1023 FAX #: [phone] Reason: ABDOMINAL PAIN WITH TRANSAMINITIS EXAMS: CPT CODE: [id number] ABDOMEN COMPLETE 26557 < Continued> Orig Print D/T: S: 09/04/2018 (0780) PAGE 3 Signed Report LIVER FUNCTION [id number] 13:35:00* Test Item Value Reference Range Interpretation [...] ALKP) 134 U/L 38-126 H GAMMA GLUTAMYL [id number] 13:35:00* Test Item Value Reference Range Interpretation Comments GAMMA GLUTAMYL TRANSPEPTIDASE (test code = GGT) 294 U/L 12-58 H [id number] 13:35:00* Test Item Value Reference Range Interpretation Comments MAGNESIUM (test code = MAG) 2.1 mg/dL 1.6-2.3 N LIVER FUNCTION [id number] 13:34:00* Test Item Value Reference Range Interpretation [...] ALKP) 134 U/L 38-126 H GAMMA GLUTAMYL [id number] 13:34:00* Test Item Value Reference Range Interpretation Comments GAMMA GLUTAMYL TRANSPEPTIDASE (test code = GGT) U/L 12-58 [id number] 13:34:00* Test Item Value Reference Range Interpretation Comments MAGNESIUM (test code = MAG) mg/dL 1.6-2.3 BASIC METABOLIC [id number] 08:02:00* Test Item Value Reference Range Interpretation [...] code = CA) 9.1 mg/dL 8.4-10.2 N [id number] 08:02:00* Test Item Value Reference Range Interpretation Comments MAGNESIUM (test code = MAG) 2.1 mg/dL 1.6-2.3 N CBC W/AUTO [id number] 07:56:00* Test Item Value Reference Range Interpretation [...] PLATELET CLUMPS SEEN NOR MAL CBC W/AUTO [id number] 07:35:00* Test Item Value Reference Range Interpretation [...] 0.03 x10 3/uL 0.0-0.1 N CBC W/AUTO [id number] 07:35:00* Test Item Value Reference Range Interpretation [...] 3/uL 0.0-0.1 N - XR ABDOMEN 1 [id number] 06:07:00 FAX: Martin Brady MD [place]: St: [facility] FAX: Nikos Arizmendi MD [phone] Name: LAVONNE CONTRERAS [facility] : 1960 Age/S: 57/M [address] Unit #: [id number] Loc: C.[address] [place] [address] Phys: Nikos Barney MD Acct: [id number] Dis Date: Status: ADM IN PHONE #: [phone] Exam Date: 09/03/2018539 FAX #: [phone] Reason: SBO EXAMS: CPT CODE: [id number] XR ABDOMEN 1 V 30004 EXAM: Abdomen 1 view LOCATION: C3 HISTORY: [...] Nikos Barney MD Technologist: RT [facility] Date/Time/By: 09/03/2018 (0607) : By: [email or web address] PAGE 1 Signed Report FAX: Martin Brady MD [place]: St: ADM FAX: Nikos Arizmendi MD [phone] Name: LAVONNE CONTRERAS [facility] : 1960 e/S: 57/M [address] Unit #: [id number] Loc: C.[address] [place] [address] Phys: Nikos Barney MD Acct: [id number] Dis Date: Status: ADM IN PHONE #: [phone] Exam Date: 09/03/2018539 FAX #: [phone] Reason: SBO EXAMS: CPT CODE: [id number] XR ABDOMEN 1 V 34280 <Continued> Orig Print D/T: S: 09/03/2018 (0611) [...] CHD)40-59mg/dL: Borderline Risk LDL Cholesterol<100mg/dL: Desirable LDL-C wwfvzanebarfe022-985iq/dL: Borderline High Risk LDL-C lhojibiqscqmt102-409zn/dL: High risk LDL-C concentration HDL-LDL Cholesterol is [...] CHD)40-59mg/dL: Borderline Risk LDL Cholesterol<100mg/dL: Desirable LDL-C wqkjjmichlqom000-694nt/dL: Borderline High Risk LDL-C nhwgvunindvrf200-482me/dL: High risk LDL-C concentration HDL-LDL Cholesterol is affected by a number of factors suchas smoking, age and sex.~~~~~~~~~~~~~~~~~~~~~~~~~~~~~~~~~~~~~~~~~~~~~~~~~~~~~~~~~~~~ BASIC METABOLIC [id number] 18:08:00* Test Item Value Reference Range Interpretation [...] = CA) 10.9 mg/dL 8.4-10.2 H PROTHROMBIN [id number] 18:03:00* Test Item Value Reference Range Interpretation [...] with Food and Drug Administrationrecommendations. THROMBOPLASTIN TIME [id number] 18:03:00* Test Item Value Reference Range Interpretation Comments THROMBOPLASTIN TIME PARTIAL (test code = PTT) 18.2 SECONDS 23.4-37. 0 L Therapeutic Range for Heparin EFFECTIVE 11/12/12 Heparin IU/mL aPTT Seconds0.3 64.30.7 88.8 CBC W/AUTO [id number] 18:01:00* Test Item Value Reference Range Interpretation [...] 0.04 x10 3/uL 0.0-0.1 N TROPONIN I [id number] 17:55:00* Test Item Value Reference Range Interpretation [...] only if similarmethodology is used. CBC W/AUTO [id number] 08:40:00* Test Item Value Reference Range Interpretation [...] (test code = PLTMORPH) NORMAL NORMAL DIFFERENTIAL [id number] 08:40:00* Test Item Value Reference Range Interpretation [...] OVAL) 1+ NONE SEEN A COMPREHENSIVE METABOLIC [id number] 06:04:00* Test Item Value Reference Range Interpretation [...] code = ALKP) 107 U/L 38-126 N [id number] 06:04:00* Test Item Value Reference Range Interpretation Comments MAGNESIUM (test code = MAG) 2.2 mg/dL 1.6-2.3 N COMPREHENSIVE METABOLIC [id number] 05:59:00* Test Item Value Reference Range Interpretation [...] code = ALKP) 107 U/L 38-126 N BPJWSNJJG2424-09-63 05:59:00* Test Item Value Reference Range Interpretation Comments MAGNESIUM (test code = MAG) mg/dL 1.6-2.3 CBC W/AUTO [id number] 05:47:00* Test Item Value Reference Range Interpretation [...] 0.04 x10 3/uL 0.0-0.1 N CBC W/AUTO [id number] 05:47:00* Test Item Value Reference Range Interpretation [...] 0.04 x10 3/uL 0.0-0.1 N CBC W/AUTO [id number] 05:44:00* Test Item Value Reference Range Interpretation [...] 3/uL 0.0-0.1 N - XR ABDOMEN 1 [id number] 04:50:00 FAX: Stormy Hernandez MD [phone] [place]: St: ADM FAX: Henry Kunz [phone] Name: LAVONNE CONTRERAS [facility] : 1960 Age/S: 57/M [address] Unit #: [id number] Loc: [address] [address] Phys: Henry Smith MD Acct: [id number] Dis Date: Status: ADM IN PHONE #: [phone] Exam Date: 08/15/2018251 FAX #: [phone] Reason: r/o sbo EXAMS: CPT CODE: [id number] XR ABDOMEN 1 V 16176 HISTORY: Male, 57 years of age with [...] ALBERTO ManningR); Patricia Tucker Trnscrd Date/Time/By: 08/15/2018 (2021) : By: SaludW PAGE 1 Signed Report FAX: Stromy Hernandez MD [phone] [place]: [facility]: ADM FAX: Henry Kunz [phone] Name: LAVONNE CONTRERAS [facility] : 1960 Age/S: 57/M [address] Unit #: [id number] Loc: [address] [address] Phys: Henry Smith MD Acct: [id number] Dis Date: Status: ADM IN PHONE #: [phone] Exam Date: 08/15/2018251 FAX #: [phone] Reason: r/o sbo EXAMS: CPT CODE: [id number] XR ABDOMEN 1 V 31464 < Continued> Orig Print D/T: S: 08/15/2018 (0454) PAGE 2 Signed Report - XR SMALL [id number] 14:16:00 FAX: Sage Noland [place]: [facility]: ADM FAX: Stormy Hernandez MD [phone] Name: LAVONNE CONTRERAS [facility] : 1960 Age/S: 57/M [address] Unit #: [id number] Loc: [address] [place] [id number] Phys: Sage Noland MD Acct: [id number] Dis Date: Status: ADM IN PHONE #: [phone] Exam Date: 08/14/2018 1310 FAX #: [phone] Reason: SBO EXAMS: CPT CODE: [id number] XR SMALL BOWEL 81695 C3 TIME OF STUDY: 08/14/2018 REASON FOR [...] PAGE 1 Signed Report FAX: Sage Dubose [place]: St: [facility] FAX: Stormy Hernandez MD [phone] Name: LAVONNE CONTRERAS [facility] : 1960 Age/S: 57/M [address] Unit #: [id number] Loc: [address] [place] [address] Phys: Sage Noland MD Acct: [id number] Dis Date: Status: ADM IN PHONE #: [phone] Exam Date: 08/14/2018 1310 FAX #: [phone] Reason: SBO EXAMS: CPT CODE: [id number] XR SMALL BOWEL 10968 < Continued> Orig Print D/T: S: 08/14/2018 (7989) PAGE 2 Signed Report LIPID PROFILE (CORONARY [...] CHD)40-59mg/dL: Borderline Risk LDL Cholesterol<100mg/dL: Desirable LDL-C wmqwamjxyohii026-317pd/dL: Borderline High Risk LDL-C omsnvopwlaldw270-327gu/dL: High risk LDL-C concentration HDL-LDL Cholesterol is [...] CHD)40-59mg/dL: Borderline Risk LDL Cholesterol<100mg/dL: Desirable LDL-C ikvayhouytgix129-848yx/dL: Borderline High Risk LDL-C ogicqzofweqno631-020bo/dL: High risk LDL-C concentration HDL-LDL Cholesterol is affected by a number of factors suchas smoking, age and sex.~~~~~~~~~~~~~~~~~~~~~~~~~~~~~~~~~~~~~~~~~~~~~~~~~~~~~~~~~~~~ - CT ABD PELVIS [id number] 22:12:00 [place]: St: ADM Name: LAVONNE HEALY [facility] : 2 Age/S: 57/M [address] Unit: [id number] Loc: [place] [address] Phys: Jeanne Urena DO Acct: [id number] Dis Date: Status: ADM IN PHONE #: [phone] Exam Date: 08/13/20182153 FAX #: [phone] Reason: abd pain EXAMS: CPT CODE: [id number] CT ABD PELVIS W/CONT 74315 EXAM: CT ABDOMEN AND PELVIS WITH IV [...] Stomach is PAGE 1 Signed Report (CONTINUED) [place]: St: ADM Name: LAVONNE CONTRERAS [facility] [place] : 1960 Age/S: 57/M [address] Unit: [id number] Loc: [place] [address] Phys: Jeanne Urena Acct: [id number] Dis Date: Status: ADM IN PHONE #: [phone] Exam Date: 08/13/20182153 FAX #: [phone] Reason: abd pain EXAMS: CPT CODE: [id number] CT ABD PELVIS W/CONT 28805 <Continued> unremarkable. Vascular: Atherosclerotic calcifications are seen [...] by: Yamilex Teague MD CC: Technologist: Patricia Tcuker; TRA VELAZQUEZ Trnscrd Dt/Tm: 08/13/2018 (2212) t.[email or web address] Orig Print D/T: S: 08/13/2018 (2215 PAGE 2 Signed Report UA RFLX MICR CULT IF [id number] 18:52:00* Test Item Value Reference Range Interpretation [...] between 0.5-2.0 NG/ML are obtained. BASIC METABOLIC [id number] 18:28:00* Test Item Value Reference Range Interpretation [...] CA) 10.4 mg/dL 8.4-10.2 H LIVER FUNCTION [id number] 18:28:00* Test Item Value Reference Range Interpretation [...] code = ALKP) 118 U/L 38-126 N [id number] 18:28:00* Test Item Value Reference Range Interpretation Comments LIPASE (test code = LIP) 259 U/L 23-300 N BASIC METABOLIC [id number] 18:27:00* Test Item Value Reference Range Interpretation [...] CA) 10.4 mg/dL 8.4-10.2 H LIVER FUNCTION [id number] 18:27:00* Test Item Value Reference Range Interpretation [...] code = ALKP) 118 U/L 38-126 N [id number] 18:27:00* Test Item Value Reference Range Interpretation Comments LIPASE (test code = LIP) U/L 23-300 CBC W/AUTO [id number] 18:16:00* Test Item Value Reference Range Interpretation [...] x10 3/uL 0.0-0.1 N - XR ABDOMEN [id number] 18:07:00 [place]: St: PRE Name: LAVONNE BAEZA [facility] [place] : [birth year] Age/S: 57/M [address] Unit #: [id number] Loc: [place] [address] Phys: Donal Hays Acct: [id number] Dis Date: Status: PRE ER PHONE #: [phone] Exam Date: 08/13/2018 1705 FAX #: [phone] Reason: sbo, pain EXAMS: CPT CODE: [id number] XR ABDOMEN 2V 36036 C3 TIME OF STUDY: 08/13/2018 4:21 PM [...] : By: [email or web address] PAGE 1 Signed Report [place]: St: PRE Name: LAVONNE CONTRERAS [facility] [place] : 1960 Age/S: 57/M [address] Unit #: [id number] Loc: [place] [address] Phys: Donal Hays Acct: [id number] Dis Date: Status: PRE ER PHONE #: [phone] Exam Date: 08/13/2018 1705 FAX #: [phone] Reason: sbo, pain EXAMS: CPT CODE: [id number] XR ABDOMEN 2V 87243 <Continued> Orig Print D/T: S: 08/13/2018 (0678) PAGE 2 Signed Report LACTIC ACID [id number] 17:36:00 * Test Item Value Reference Range Interpretation Comments LACTIC ACID POC (test code = LACTP) 1.74 mmol/L 0.7-2.0 N - XR ABDOMEN 1 [id number] 05:49:00 FAX: Maria Teresa Lynne MD [phone] [place]: St: ADM FAX: Nikos Arizmendi MD [phone] Name: LAVONNE CONTRERAS [facility] : 1960 Age/S: 57/M [address] Unit #: [id number] Loc: [address] [place] [address] Phys: Nikos Barney MD Acct: [id number] Dis Date: Status: ADM IN PHONE #: [phone] Exam Date: 08/13/2018 0505 FAX #: [phone] Reason: SBO EXAMS: CPT CODE: [id number] XR ABDOMEN 1 V 39029 Exam: KUB. Location: F6 History: SBO Findings: A supine view of the abdomen demonstrates a few loops of slightly dilated small intestine the mid and upper abdomen, unchanged in appearance from the previous study. The large and small intestine are normal in caliber. No organomegaly, abnormal masses or calcifications are seen. No pneumatosis or free air is present. Impression: Stable exam. at 0574 Reported and signed by: Cindy Randle ncesco CC: Maria Teresa Gottlieb MD; Nikos Barney MD Technologist: RT Armand (Joe) Trnscrd Date/Time/By: 08/13/2018 (0549) : By: TannaFC PAGE 1 Signed Report FAX: Maria Teresa Solano MD [phone] [place]: [facility]: ADM FAX: Nikos Arizmendi MD [phone] Name: LAVONNE CONTRERAS [facility] : 1960 Age/S: 57/M [address] Unit #: [id number] Loc: [address] [place] [address] Phys: Nikos Barney MD Acct: [id number] Dis Date: Status: ADM IN PHONE #: [phone] Exam Date: 08/13/2018 0505 FAX #: [phone] Reason: SBO EXAMS: CPT CODE: [id number] XR ABDOMEN 1 V 28755 < Continued> Orig Print D/T: S: 08/13/2018 (0552) PAGE 2 Signed Report - XR ABDOMEN 1 [id number] 05:30:00 FAX: Maria Teresa Lynne MD [phone] [place]: [facility]: ADM FAX: Nikos Arizmendi MD [phone] Name: LAVONNE CONTRERAS [facility] : 1960 Age/S: 57/M [address] Unit #: [id number] Loc: [address] [place] [address] Phys: Nikos Barney MD Acct: [id number] Dis Date: Status: ADM IN PHONE #: [phone] Exam Date: 08/12/2018509 FAX #: [phone] Reason: SBO EXAMS: CPT CODE: [id number] XR ABDOMEN 1 V 12569 Exam: KUB. Location: F6 History: SBO COMPARISON: 08/11/2018 Findings: A supine view of the abdomen demonstrates no changes occurred in the bowel dilatation. No organomegaly, abnormal masses or calcifications are seen. No pneumatosis or free air is present. Impression: Stable abdomen. at 2436 Reported and signed by: Michael Randle CC: Maria Teresa Gottlieb MD; Nikos Barney MD Technologist: YANA SHEARER RT (R) Trnscrd Date/Time/By: (9406) : By: TannaFC PAGE 1 Signed Report FAX: Maria Teresa Lynne MD [phone] [place]: St: ADM FAX: Nikos Arizmendi MD [phone] -- N alexandra: LAVONNE CONTRERAS [facility] : 1960 Age/S: 57/M [address] Unit #: [id number] Loc: [address] [place] [address] Phys: Hernan Barney MD Acct: [id number] Dis D ate: Status: ADM IN PHONE #: Exam Date: 08/12/2018509 FAX #: Reason: SBO EXAMS: CPT CODE: [id number] XR ABDOMEN 1 V 49031 <Continued> Orig Print D/T: S: 08/12/2018 (8013) PAGE 2 Signed Report BASIC METABOLIC [id number] 07:19:00* Test Item Value Reference Range Interpretation [...] code = CA) 9.1 mg/dL 8.4-10.2 N [id number] 07:19:00* Test Item Value Reference Range Interpretation Comments PHOSPHOROUS (test code = PHOS) 3.6 mg/dL 2.5-4.5 N [id number] 07:19:00* Test Item Value Reference Range Interpretation Comments MAGNESIUM (test code = MAG) 2.2 mg/dL 1.6-2.3 N BASIC METABOLIC [id number] 07:18:00* Test Item Value Reference Range Interpretation [...] code = CA) 9.1 mg/dL 8.4-10.2 N [id number] 07:18:00* Test Item Value Reference Range Interpretation Comments PHOSPHOROUS (test code = PHOS) mg/dL 2.5-4.5 [id number] 07:18:00* Test Item Value Reference Range Interpretation Comments MAGNESIUM (test code = MAG) mg/dL 1.6-2.3 CBC W/AUTO [id number] 07:05:00* Test Item Value Reference Range Interpretation [...] 3/uL 0.0-0.1 N - XR ABDOMEN 1 [id number] 05:02:00 FAX: Maria Teresa Lynne MD [phone] [place]: St: ADM FAX: Nikos Arizmendi MD [phone] Name: DIANELAVONNE [facility] : 1960 Age/S: 57/M [address] Unit #: [id number] Loc: [address] [place] [address] Phys: Nikos Barney MD Acct: [id number] Dis Date: Status: ADM IN PHONE #: [phone] Exam Date: 08/11/2018 0332 FAX #: [phone] Reason: SBO EXAMS: CPT CODE: [id number] XR ABDOMEN 1 V 94046 Location: U19. ABDOMEN, 1 VIEW HISTORY:SBO FINDINGS: [...] ALBERTO WHITLOCK (R); CHRISTA GOLDEN Date/Time/By: 08/11/2018 (7806) : By: [email or web address] PAGE 1 Signed Report FAX: Maria Teresa Lynne MD [phone] [place]: St: ADM FAX: Nikos Arizmendi MD [phone] Name: LAVONNE CONTRERAS [facility] : 1960 Age/S: 57/M [address] Unit #: [id number] Loc: [address] [place] [address] Phys: Nikos Barney MD Acct: [id number] Dis Date: Status: ADM IN PHONE #: [phone] Exam Date: 08/11/2018 0332 FAX #: [phone] Reason: SBO EXAMS: CPT CODE: [id number] XR ABDOMEN 1 V 78405 < Continued> Orig Print D/T: S: 08/11/2018 (1351) PAGE 2 Signed Report - XR CHEST 1 [id number] 03:21:00 FAX: Maria Teresa Lynne MD [phone] [place]: St: ADM Name: LAVONNE BAEZA [place] : [birth year] Age/S: 57/M [address] Unit #: [id number] Loc: [address] [place] [address] Phys: Maria Teresa Gottlieb MD Acct: [id number] Dis Date: Status: ADM IN PHONE #: [phone] Exam Date: 08/11/2018257 FAX #: [phone] Reason: NGT INSERTION VERIFICATION EXAMS: CPT CODE: [id number] XR CHEST 1 V 38840 EXAM: - XR CHEST 1 V HISTORY: [...] d Report FAX: Maria Teresa Lynne MD [place]: St: ADM Name: LAVONNE CONTRERAS [facility] : 1960 Age/S: 57/M [address] Unit #: [id number] Loc: [address] [place] [address] Phys: Maria Teresa Gottlieb MD Acct: [id number] Dis Date: Status: ADM IN PHONE #: [phone] Exam Date: 08/11/2018257 FAX #: [phone] Reason: NGT INSERTION VERIFICATION EXAMS: CPT CODE: [id number] XR CHEST 1 V 97921 < Continued> Trnscrd Date/Time/By: 08/11/2018 (032) : By: [email or web address] PAGE 2 Signed Report UA RFLX MICR CULT IF [id number] 01:18:00* Test Item Value Reference Range Interpretation [...] between 0.5-2.0 NG/ML are obtained. BASIC METABOLIC [id number] 00:15:00* Test Item Value Reference Range Interpretation [...] CA) 9.3 mg/dL 8.4-10.2 N LIVER FUNCTION [id number] 00:15:00* Test Item Value Reference Range Interpretation [...] code = ALKP) 95 U/L 38-126 N [id number] 00:15:00* Test Item Value Reference Range Interpretation Comments LIPASE (test code = LIP) 133 U/L 23-300 N PROTHROMBIN [id number] 00:12:00* Test Item Value Reference Range Interpretation [...] with Food and Drug Administrationrecommendations. CBC W/AUTO [id number] 00:00:00* Test Item Value Reference Range Interpretation [...] 3/uL 0.0-0.1 N - CT ABD PELVIS [id number] 23:42:00 [place]: St: REG Name: LAVONNE HEALY : [birth year] Age/S: 57/M [address] Unit: [id number] Loc: [place] [address] Phys: Jim Brito MD Acct: [id number] Dis Date: Status: REG ER PHONE #: [phone] Exam Date: 08/10/2018 6466 FAX #: [phone] Reason: abd pain EXAMS: CPT CODE: [id number] CT ABD PELVIS W/CONT 44449 Exam: CT abdomen and pelvis with contrast. [...] unremarkable exam. PAGE 1 Signed Report (CONTINUED) [place]: St: REG Name: LAVONNE CONTRERAS : 1960 Age/S: 57/M [address] Unit: [id number] Loc: [place] [address] Phys: Jim Brito MD Acct: [id number] Dis Date: Status: REG ER PHONE #: [phone] Exam Date: 08/10/2018 2320 FAX #: [phone] Reason: abd pain EXAMS: CPT CODE: [id number] CT ABD PELVIS W/CONT 40568 <Continued> at 2342 Reported and signed by: Michael Randle CC: Technologist: Monica Bobo Trnscrd Dt/Tm: 08/10/2018 (8271) Puneet Orig Print D/T: S: 08/10/2018 (4571 PAGE 2 Signed Report BEDSIDE CREATININE 2018-08-10 23:25:00* Test Item Value Reference Range Interpretation Comments BEDSIDE CREATININE (test code = CREATBED) 0.9 mg/dL 0.66-1.25 N LACTIC ACID [id number] 23:13:00* Test Item Value Reference Range Interpretation Comments LACTIC ACID POC (test code = LACTP) 1.67 mmol/L 0.7-2.0 N
[2020-03-18] MEDS: SODIUM CHLORIDE 0.9% 1000ML 1,000 ML IV SCH (17:28)
[2020-03-18 17:43] LABS: BASOPHILS # (AUTO) 0.1 (0.0-0.1); BASOPHILS % 0.9 % (0.0-1.0); EOSINOPHILS # (AUTO) 0.1 (0.0-0.4); EOSINOPHILS % 1.9 % (0.0-6.0); HEMATOCRIT 32.4 % (38.2-49.6); HEMOGLOBIN 10.4 g/dL (14.0-18.0); LYMPHOCYTES % 29.7 % (18.0-39.1); MEAN CORPUSCULAR HEMOGLOBIN 27.7 pg (28-32); MEAN CORPUSCULAR HGB CONC 32.1 g/dL (31-35); MEAN CORPUSCULAR VOLUME 86.2 fL (81-99); MONOCYTES # (AUTO) 0.7 (0.2-0.8); MONOCYTES % 9.8 % (4.4-11.3); NEUTROPHILS # (AUTO) 3.9 (2.1-6.9); NEUTROPHILS % 57.3 % (38.7-80.0); PLATELET COUNT 178 x10e3/uL (140-360); RED BLOOD COUNT 3.76 x10e6/uL (4.3-5.7); RED CELL DISTRIBUTION WIDTH 13.6 % (11.7-14.4)
[2020-03-18 17:49] LABS: BILIRUBIN,URINE NEGATIVE (NEGATIVE); CLARITY,URINE CLOUDY (CLEAR); COLOR,URINE BROWN (YELLOW); KETONES,URINE TRACE (NEGATIVE); LEUKOCYTE ESTERASE ,URINE NEGATIVE (NEGATIVE); NITRITE,URINE POSITIVE (NEGATIVE); PROTEIN,URINE DIPSTICK 2+ (NEGATIVE); URINE UROBILINOGEN 1 mg/dL (0.2 - 1)
[2020-03-18] MEDS: ONDANSETRON HCL INJ 2MG/ML 2ML 2 MG/ML VIAL IV PRN (17:55)
[2020-03-18 17:59] LABS: RBC,URINE 21-50 /HPF (0-5)
[2020-03-18 18:00] LABS: ALBUMIN 3.5 g/dL (3.5-5.0); ALBUMIN/GLOBULIN RATIO 1.3 (0.8-2.0); BACTERIA,URINE MANY /HPF; CALCIUM 8.5 mg/dL (8.4-10.2); CREATININE, SERUM 1.23 mg/dL (0.72-1.25); EPITHELIAL CELLS,URINE RARE /LPF
[2020-03-18] MEDS ORDERED: GABAPENTIN300 MG PO (19:53)
[2020-03-18] MEDS ORDERED: MIRALAX17 GM PO (19:53)
[2020-03-18] MEDS ORDERED: METOPROLOL TART25 MG PO (19:55)
[2020-03-18] MEDS ORDERED: ATORVASTATIN CA20 MG PO (19:58)
[2020-03-18] MEDS ORDERED: ASPIRIN81 MG PO (19:59)
[2020-03-18] MEDS ORDERED: MELATONIN3 MG PO (20:00)
[2020-03-18 20:23] VITALS: BP 121/76
[2020-03-18] MEDS ORDERED: HYDROCODONE/APAP 5MG-325MG TAB PO PRN (20:45)
[2020-03-18 21:00] VITALS: BP 121/76
[2020-03-18] MEDS: MELATONIN 3 MG TAB PO PRN (21:20)
[2020-03-18] MEDS: KETOROLAC TROMETHAMINE 30 MG/ML VIAL IV PRN (21:20)
[2020-03-18] MEDS: ATORVASTATIN 20 MG TAB PO SCH (21:20)
[2020-03-18 22:33] VITALS: BP 121/76
[2020-03-19] VITALS (8 sets, daily range): BP systolic 108–126; BP diastolic 50–84
--- NOTE | 2020-03-19 01:25 | NUR ---
Pt resting in bed, no distress. denied pain. call light within reach. bed in low position and locked.
[2020-03-19] MEDS: SODIUM CHLORIDE 0.9% 1000ML 1,000 ML IV SCH ×3 (01:45→17:00)
[2020-03-19] MEDS: ONDANSETRON HCL INJ 2MG/ML 2ML 2 MG/ML VIAL IV PRN ×5 (01:46→21:34)
[2020-03-19] MEDS ORDERED: VENTOLIN HFA18 GM INH (01:59)
[2020-03-19] MEDS: ALBUTEROL/IPRATROPIUM 3 ML NEB NEB PRN ×2 (02:10→06:50)
[2020-03-19] MEDS: KETOROLAC TROMETHAMINE 30 MG/ML VIAL IV PRN (03:15)
[2020-03-19] MEDS ORDERED: CALCIUM CARBON200 MG PO (03:28)
--- NOTE | 2020-03-19 03:33 | NUR ---
paged Dr. Trent, pt requests stronger pain medication and something for heart burn. awaiting call back
[2020-03-19] MEDS ORDERED: PANTOPRAZOLE SO40 MG PO (03:38)
[2020-03-19] MEDS ORDERED: OYST-CAL-D 500MG TABLET PO PRN (04:15)
--- NOTE | 2020-03-19 06:32 | NUR ---
RECEIVED BEDSIDE SHIFT REPORT FROM OFF GOING NURSE. PATIENT IS RESTING IN BED, NO ACUTE DISTRESS NOTED AT THIS TIME. CALL LIGHT WITHIN REACH. BED IN THE LOWEST POSITION.
[2020-03-19 06:50] LABS: BASOPHILS % 0.5 % (0.0-1.0); EOSINOPHILS # (AUTO) 0.1 (0.0-0.4); EOSINOPHILS % 1.2 % (0.0-6.0); HEMOGLOBIN 10.1 g/dL (14.0-18.0); LYMPHOCYTES # (AUTO) 1.2 (1.0-3.2); LYMPHOCYTES % 16.8 % (18.0-39.1); MEAN CORPUSCULAR HEMOGLOBIN 27.3 pg (28-32); MEAN CORPUSCULAR HGB CONC 31.6 g/dL (31-35); MEAN CORPUSCULAR VOLUME 86.5 fL (81-99); MONOCYTES # (AUTO) 0.5 (0.2-0.8); MONOCYTES % 7.1 % (4.4-11.3); NEUTROPHILS # (AUTO) 5.4 (2.1-6.9); NEUTROPHILS % 74.1 % (38.7-80.0); PLATELET COUNT 156 x10e3/uL (140-360); RED CELL DISTRIBUTION WIDTH 13.7 % (11.7-14.4)
[2020-03-19] MEDS: HYDROMORPHONE 1MG/1ML INJ IV PRN ×5 (06:50→23:11)
[2020-03-19 07:04] LABS: ANION GAP 10.1 mmol/L (8-16); BLOOD UREA NITROGEN 17 mg/dL (7-26); BUN/CREATININE RATIO 19 (6-25); CALCIUM 8.4 mg/dL (8.4-10.2); CARBON DIOXIDE 23 mmol/L (22-29); CHLORIDE 111 mmol/L (98-107); EST GLOMERULAR FILTRATION RATE > 60 ML/MIN (60-); GLUCOSE 116 mg/dL (74-118); POTASSIUM 4.1 mmol/L (3.5-5.1); SODIUM 140 mmol/L (136-145)
[2020-03-19] MEDS: LISINOPRIL 10 MG TAB PO SCH (07:29)
[2020-03-19] MEDS: DOCUSATE SODIUM LIQD 100 MG/10 ML UDC PO SCH ×2 (07:29→16:00)
[2020-03-19] MEDS: METOPROLOL TARTRATE 25 MG TAB PO SCH ×2 (07:29→16:00)
[2020-03-19] MEDS: GABAPENTIN 300 MG CAP PO SCH (07:29)
[2020-03-19] MEDS: PANTOPRAZOLE SOD 40 MG TABEC PO SCH (07:29)
[2020-03-19] MEDS: POLYETHYLENE GLYCOL 3350 17 GM PACK PO PRN (07:35)
--- NOTE | 2020-03-19 11:06 | NUR ---
Nutrition Screen Note RD Recommendation for Physician: Continue diet as ordered Plan of Care: RD following, monitoring for tolerance and adequacy Nutrition reason for involvement: MST Primary Diagnose(s): UTI Ht:67 in Wt:205lbs BMI:32.1 kg/m2 IBW:148lbs RD Assessment:(03/19/2020) Initial encounter with patient. Pt denies any known food allergies, N,V,D, nor has any difficulty chewing or swallowing. Pt is reporting a good appetite. Current Diet: Cardiac Malnutrition Evaluation (03/19/2020) The patient does not meet criteria for a specified degree of malnutrition at this time. Will re-evaluate at follow-up as appropriate. Diet Education Needs Assessment: Diet education not indicated. Diet Adequacy: Meeting calorie needs, Meeting protein needs, Meeting fluid needs. Tolerance: Tolerating PO Nutrition Care Level: Afshin Lieberman RD,LD,CNSC
[2020-03-19] MEDS: AMPICILLIN SOD/SULBACTAM 1.5GM 1.5 G in AMPICILLIN SOD/SULBACTAM 1.5GM 50 ML IV SCH ×2 (11:42→17:00)
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
--- NOTE | 2020-03-19 19:27 | NUR ---
BEDSIDE SHIFT REPORT GIVEN TO ONCOMING NURSE. PATIENT IS RESTING IN BED, NO ACUTE DISTRESS NOTED AT THIS TIME. PATIENT C/O BACK PAIN OF 10/10, MEDICATED WITH PRN DILAUDID. CALL LIGHT WITHIN REACH. BED IN THE LOWEST POSITION.
--- NOTE | 2020-03-19 19:29 | NUR ---
RECEIVED PT IN BED AOX3 LEFT UPPER ARM 20 G NS AT 125CC/HR .C/O PAIN CALL LIGHT WITH IN REACH GIVEN PAIN MEDICATION BY DAY NURSE .CONTINUE TO MONITOR
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
[2020-03-19] MEDS: ATORVASTATIN 20 MG TAB PO SCH (20:58)
[2020-03-19] MEDS: MELATONIN 3 MG TAB PO PRN (21:35)
[2020-03-20] VITALS (8 sets, daily range): BP systolic 107–140; BP diastolic 68–90
[2020-03-20] MEDS: SODIUM CHLORIDE 0.9% 1000ML 1,000 ML IV SCH ×3 (01:20→16:30)
[2020-03-20] MEDS: HYDROMORPHONE 1MG/1ML INJ IV PRN ×7 (02:35→23:00)
--- NOTE | 2020-03-20 05:43 | NUR ---
PT C/O PAIN .Q3HRS AND GIVEN ORDERED PAIN MEDICATION ,CALL LIGHT WITH IN REACH ,CONTINUE TO MONITOR
[2020-03-20] MEDS: AMPICILLIN SOD/SULBACTAM 1.5GM 1.5 G in AMPICILLIN SOD/SULBACTAM 1.5GM 50 ML IV SCH ×4 (05:45→20:00)
--- NOTE | 2020-03-20 07:05 | NUR ---
BEDSIDE REPORT GIVEN TO THE ONCOMING NURSE
[2020-03-20] MEDS: POLYETHYLENE GLYCOL 3350 17 GM PACK PO PRN (07:10)
[2020-03-20] MEDS: DOCUSATE SODIUM LIQD 100 MG/10 ML UDC PO SCH ×2 (08:05→17:00)
[2020-03-20] MEDS: GABAPENTIN 300 MG CAP PO SCH (08:05)
[2020-03-20] MEDS: LISINOPRIL 10 MG TAB PO SCH (08:05)
[2020-03-20] MEDS: METOPROLOL TARTRATE 25 MG TAB PO SCH ×2 (08:05→17:14)
[2020-03-20] MEDS: PANTOPRAZOLE SOD 40 MG TABEC PO SCH (08:05)
--- NOTE | 2020-03-20 08:40 | Progress Note ---
DATE: SUBJECTIVE: The patient is a 59-year-old gentleman who was admitted to the hospital for urinary tract infection and abdominal pain, failed outpatient surgical intervention and need of suprapubic catheter. Currently, the patient is feeling well. No complaints. Abdominal pain is better. Abdominal bloating is still present. OBJECTIVE: VITAL SIGNS: Temperature is 97.9, pulse is 70, respirations of 18, blood pressure is 117/70 with a pulse oximetry of 99% on 2 L of oxygen. CVS: S1, S2 normal. Regular rate and rhythm. ABDOMEN: Soft, nontender, nondistended. Abdomen has a midline scar. EXTREMITIES: No clubbing, no cyanosis, no edema. MEDICATIONS: Reviewed. ASSESSMENT AND PLAN: Mr. Hernández with: 1. Urinary tract infection, currently on antibiotics. Continue the same. 2. History of coronary artery disease with PCI in October. Hyperlipidemia. We will continue with antihypertensive agents. Surgical evaluation and clearance was done by Dr. Fletcher, who is on board. The patient is five months out of stent and was on Effient, has been stopped and cardiac risk explained to the patient. We will continue to monitor the patient on antibiotics. Currently, the patient's laboratory values were normal. Hemoglobin 10.01 and 32.0 hematocrit. Chemistries are all within normal limits. Continue to monitor the patient. Further recommendation per clinical course. We will follow the patient along with Cardiology and Urology. MD ANDREY Garcia/BIB /[id number]
--- NOTE | 2020-03-20 19:16 | NUR ---
Picc tip is at the cavoatrial junction per verbal report by Dr Rao, radiologist. Picc is okay to use
--- NOTE | 2020-03-20 19:20 | Diagnostic Imaging Report ---
EXAMINATION: CHEST XRAY LINE PLACEMENT INDICATION: ^s/p picc placement ^[id number] ^[id number] COMPARISON: Chest x-ray 03/14/2020 FINDINGS: TUBES and LINES: New right upper extremity PICC, tip terminates in the superior cavoatrial junction. LUNGS: Normal lung volumes. Lungs are clear. No consolidations. PLEURA: No pleural effusion or pneumothorax. HEART AND MEDIASTINUM: The cardiomediastinal silhouette is unremarkable. BONES AND SOFT TISSUES: No acute osseous lesion. Soft tissues are unremarkable. Healed right lower rib fracture. UPPER ABDOMEN: No free air under the diaphragm. IMPRESSION: New right upper extremity PICC, tip terminates in the superior cavoatrial junction. Signed by: Charlie Cunningham DO on 03/20/2020 7:17 PM
--- NOTE | 2020-03-20 19:31 | NUR ---
RECEIVED PT IN BED AOX3 PT HAS RT UPPER ARM PICC LINE .DENIES PAIN ,CALL LIGHT WITH IN REACH ,CONTINUE TO MONITOR
[2020-03-20] MEDS: ATORVASTATIN 20 MG TAB PO SCH (21:00)
[2020-03-20] MEDS: ONDANSETRON HCL INJ 2MG/ML 2ML 2 MG/ML VIAL IV PRN (21:01)
[2020-03-20] MEDS: MELATONIN 3 MG TAB PO PRN (21:01)
[2020-03-21] VITALS (8 sets, daily range): BP systolic 105–147; BP diastolic 62–93
[2020-03-21] MEDS: AMPICILLIN SOD/SULBACTAM 1.5GM 1.5 G in AMPICILLIN SOD/SULBACTAM 1.5GM 50 ML IV SCH ×5 (01:00→23:39)
[2020-03-21] MEDS: HYDROMORPHONE 1MG/1ML INJ IV PRN ×4 (02:00→16:05)
[2020-03-21] MEDS: SODIUM CHLORIDE 0.9% 1000ML 1,000 ML IV SCH ×3 (04:33→16:30)
--- NOTE | 2020-03-21 06:27 | NUR ---
PT C/O PAIN .Q3HRS AND GIVEN ORDERED PAIN MEDICATION ,CALL LIGHT WITH IN REACH ,CONTINUE TO MONITOR
--- NOTE | 2020-03-21 07:22 | NUR ---
BEDSIDE REPORT GIVEN TO THE ONCOMING NURS
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
--- NOTE | 2020-03-21 07:58 | NUR ---
RECEIVED PT RESTING IN BED. PT IN STABLE CONDITION. C/O FLANK PAIN 3/10PAIN VERBALIZED. CALL LIGHT WITHIN REACH. WILL CONTINUE TO MONITOR.
[2020-03-21] MEDS: PANTOPRAZOLE SOD 40 MG TABEC PO SCH (08:06)
[2020-03-21] MEDS: DOCUSATE SODIUM LIQD 100 MG/10 ML UDC PO SCH ×2 (08:06→16:04)
[2020-03-21] MEDS: GABAPENTIN 300 MG CAP PO SCH (08:06)
[2020-03-21] MEDS: LISINOPRIL 10 MG TAB PO SCH (08:07)
[2020-03-21] MEDS: METOPROLOL TARTRATE 25 MG TAB PO SCH ×2 (08:08→16:04)
[2020-03-21] MEDS: ONDANSETRON HCL INJ 2MG/ML 2ML 2 MG/ML VIAL IV PRN ×2 (08:09→16:05)
[2020-03-21] MEDS ORDERED: ONDANSETRON HCL INJ 2MG/ML 2ML 2 MG/ML VIAL IV STA (10:56)
--- NOTE | 2020-03-21 10:58 | NUR ---
SPOKE TO DR. HODGES REGARDING PT NAUSEA.
[2020-03-21] MEDS: KETOROLAC TROMETHAMINE 30 MG/ML VIAL IV PRN (11:44)
--- NOTE | 2020-03-21 15:44 | NUR ---
SPOKE TO VAL AT DR. RAMIREZ'S OFFICE TO ADVISE PT CLEARED BY CARDIOLOGY FOR SURGERY.
--- NOTE | 2020-03-21 19:00 | NUR ---
Received change of shift report from AM nurse. Walking rounds completed.
--- NOTE | 2020-03-21 19:28 | NUR ---
PT RESTING IN BED. PT IN STABLE CONDITION. REPORT GIVEN TO ONCOMING NURSE.
[2020-03-21] MEDS: ATORVASTATIN 20 MG TAB PO SCH (20:13)
[2020-03-21] MEDS: MELATONIN 3 MG TAB PO PRN (20:38)
[2020-03-22] VITALS (9 sets, daily range): BP systolic 124–167; BP diastolic 72–94
[2020-03-22] MEDS: SODIUM CHLORIDE 0.9% 1000ML 1,000 ML IV SCH ×3 (00:30→15:24)
[2020-03-22] MEDS: HYDROMORPHONE 1MG/1ML INJ IV PRN ×7 (01:10→23:51)
[2020-03-22] MEDS: ONDANSETRON HCL INJ 2MG/ML 2ML 2 MG/ML VIAL IV PRN ×6 (01:10→19:45)
[2020-03-22] MEDS: AMPICILLIN SOD/SULBACTAM 1.5GM 1.5 G in AMPICILLIN SOD/SULBACTAM 1.5GM 50 ML IV SCH (05:25)
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
--- NOTE | 2020-03-22 07:55 | NUR ---
PT RESTING IN BED. PT IN STABLE CONDITION. VERBALIZED PAIN 5/10 FLANK PAIN. CALL LIGHT WITHIN REACH. WILL CONTINUE TO MONITOR.
[2020-03-22] MEDS: GABAPENTIN 300 MG CAP PO SCH (08:02)
[2020-03-22] MEDS: LISINOPRIL 10 MG TAB PO SCH (08:03)
[2020-03-22] MEDS: PANTOPRAZOLE SOD 40 MG TABEC PO SCH (08:04)
[2020-03-22] MEDS: DOCUSATE SODIUM LIQD 100 MG/10 ML UDC PO SCH ×2 (08:04→16:34)
[2020-03-22] MEDS: METOPROLOL TARTRATE 25 MG TAB PO SCH ×2 (08:04→16:35)
[2020-03-22] MEDS: CEFEPIME 1GM/NS 0.9% 50 ML 50 ML IV SCH ×2 (10:13→21:30)
[2020-03-22] MEDS: ALBUTEROL/IPRATROPIUM 3 ML NEB NEB PRN (10:15)
--- NOTE | 2020-03-22 10:18 | NUR ---
CALLED RESPIRATORY FOR DUONEB TREATMENT. PT NOTES INTERMITTENT SHORTNESS OF BREATH WHILE TAKING A SHOWER. PT IN STABLE CONDITION.
[2020-03-22] MEDS: KETOROLAC TROMETHAMINE 30 MG/ML VIAL IV PRN ×2 (10:21→18:33)
--- NOTE | 2020-03-22 15:25 | NUR ---
CONSENT OBTAINED/SIGNED. PRE-OP CHECK LIST PRINTED. CONSENT AND CHECK LIST IN PT'S BINDER.
--- NOTE | 2020-03-22 19:11 | NUR ---
PT RESTING IN BED. PT IN STABLE CONDITION. REPORT GIVEN TO ONCOMING NURSE. ADVISED CONSENT AND PRE-OP CHECK LIST IN CHART. PT TO BE NPO @ MIDNIGHT.
--- NOTE | 2020-03-22 19:15 | NUR ---
Bedside rounds completed with morning nurse. Pt alert and oriented to name, lying in bed HOB 45 degrees. c/o moderate bilateral flank pain, will f/u with pain med when due. Informed NPO after midnight for procedure tomorrow. Call light within reach. Bed low and locked.
[2020-03-22] MEDS: ATORVASTATIN 20 MG TAB PO SCH (21:00)
[2020-03-22] MEDS: MELATONIN 3 MG TAB PO PRN (21:00)
[2020-03-23] MEDS: HYDROMORPHONE 1MG/1ML INJ IV PRN ×6 (04:20→23:15)
[2020-03-23] MEDS: ONDANSETRON HCL INJ 2MG/ML 2ML 2 MG/ML VIAL IV PRN ×4 (04:20→19:55)
[2020-03-23] MEDS: SODIUM CHLORIDE 0.9% 1000ML 1,000 ML IV SCH ×3 (04:21→16:55)
[2020-03-23 05:52] VITALS: BP 125/97
[2020-03-23 06:00] LABS: BASOPHILS # (AUTO) 0.1 (0.0-0.1); EOSINOPHILS # (AUTO) 0.2 (0.0-0.4); EOSINOPHILS % 4.5 % (0.0-6.0); HEMATOCRIT 26.6 % (38.2-49.6); HEMOGLOBIN 8.5 g/dL (14.0-18.0); LYMPHOCYTES # (AUTO) 0.9 (1.0-3.2); LYMPHOCYTES % 18.6 % (18.0-39.1); MEAN CORPUSCULAR HEMOGLOBIN 27.2 pg (28-32); MEAN CORPUSCULAR VOLUME 85.3 fL (81-99); MONOCYTES # (AUTO) 0.5 (0.2-0.8); MONOCYTES % 10.1 % (4.4-11.3); NEUTROPHILS # (AUTO) 3.2 (2.1-6.9); PLATELET COUNT 145 x10e3/uL (140-360); RED BLOOD COUNT 3.12 x10e6/uL (4.3-5.7); RED CELL DISTRIBUTION WIDTH 13.8 % (11.7-14.4)
[2020-03-23 06:39] LABS: ALANINE AMINOTRANSFERASE 22 IU/L (0-55); ALBUMIN 2.9 g/dL (3.5-5.0); ALBUMIN/GLOBULIN RATIO 1.2 (0.8-2.0); ALKALINE PHOSPHATASE 132 IU/L (40-150); ANION GAP 8.4 mmol/L (8-16); BLOOD UREA NITROGEN 6 mg/dL (7-26); BUN/CREATININE RATIO 8 (6-25); CALCIUM 7.6 mg/dL (8.4-10.2); CARBON DIOXIDE 26 mmol/L (22-29); CHLORIDE 109 mmol/L (98-107); CREATININE, SERUM 0.74 mg/dL (0.72-1.25); EST GLOMERULAR FILTRATION RATE > 60 ML/MIN (60-); GLUCOSE 93 mg/dL (74-118); POTASSIUM 3.4 mmol/L (3.5-5.1); SODIUM 140 mmol/L (136-145)
--- NOTE | 2020-03-23 07:00 | NUR ---
ASSUMED CARE. PATIENT STANDING UP IN ROOM AT BEDSIDE AFTER REPORTING A BM THIS AM. AAOX3. ACYANOTIC. NO DISTRESS NOTED. CALL LIGHT IN REACH. SIDE RAILS UP X2. BED LOW AND LOCKED.
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
[2020-03-23] MEDS: ALBUTEROL/IPRATROPIUM 3 ML NEB NEB PRN (07:38)
[2020-03-23 08:00] VITALS: BP 135/75
[2020-03-23] MEDS: LISINOPRIL 10 MG TAB PO SCH (08:11)
[2020-03-23] MEDS: GABAPENTIN 300 MG CAP PO SCH (08:11)
[2020-03-23] MEDS: DOCUSATE SODIUM LIQD 100 MG/10 ML UDC PO SCH ×2 (08:11→16:55)
[2020-03-23] MEDS: METOPROLOL TARTRATE 25 MG TAB PO SCH ×2 (08:11→16:55)
[2020-03-23 08:12] VITALS: BP 135/75
[2020-03-23] MEDS: PANTOPRAZOLE SOD 40 MG TABEC PO SCH (08:12)
[2020-03-23] MEDS: CEFEPIME 1GM/NS 0.9% 50 ML 50 ML IV SCH ×2 (09:46→20:30)
[2020-03-23 11:52] VITALS: BP 144/92
--- NOTE | 2020-03-23 12:30 | NUR ---
PATIENT OFF UNIT AT APPROXIMATELY 1220 FOR SCHEDULED PROCEDURE. NO DISTRESS NOTED. AAOX3.
[2020-03-23] MEDS ORDERED: BUPIVACAINE 0.25% 30ML SDV ONE (12:43)
[2020-03-23] MEDS ORDERED: LIDOCAINE 2%/ EPINEPHRINE 20ML MDV ONE (12:43)
[2020-03-23] MEDS ORDERED: IOPAMIDOL 300MG/ML 50ML INFUS..BTL IV ONE (12:44)
[2020-03-23] MEDS ORDERED: GENTAMICIN SULFATE 40 MG/ML 2 ML VIAL ONE (13:39)
[2020-03-23] MEDS ORDERED: NEOSTIGMINE 1 MG/ML 10ML VIAL ONE ×2 (14:46→17:35)
--- NOTE | 2020-03-23 15:11 | NUR ---
REPORT RECEIVED BY Kirsten RENE RN.
[2020-03-23] MEDS ORDERED: MEPERIDINE HCL INJ 25 MG/ML VIAL ONE (15:53)
--- NOTE | 2020-03-23 16:11 | NUR ---
Nutrition Screen Note RD Recommendation for Physician: -Continue diet as ordered Plan of Care: RD following, monitoring for tolerance and adequacy Nutrition reason for involvement: follow up Primary Diagnose(s): UTI Ht:67 in Wt:205lbs BMI:32.1 kg/m2 IBW:148lbs RD Assessment: 03/23: Follow up. Chart reviewed. Pt had a cystoscopy today. Pt is eating well with 100% meal intake recorded yesterday. Will continue to monitor. (03/19/2020) Initial encounter with patient. Pt denies any known food allergies, N,V,D, nor has any difficulty chewing or swallowing. Pt is reporting a good appetite. Current Diet: Cardiac Malnutrition Evaluation (03/19/2020) The patient does not meet criteria for a specified degree of malnutrition at this time. Will re-evaluate at follow-up as appropriate. Diet Education Needs Assessment: Diet education not indicated. Nutrition Care Level: Low Signed: Domonique Martínez, RD, LD
--- NOTE | 2020-03-23 16:22 | NUR ---
Received patient from PACU. Patient A/O X3, even respirations on RA. Vital signs stable. Rosales in place hematuria present. SCD's bilaterally. BELKYS PICC line intact. Patient states pain 02/12. OPAL drain in place. Call light in reach will continue to monitor.
[2020-03-23 16:37] VITALS: BP 152/86
[2020-03-23] MEDS ORDERED: ONDANSETRON HCL INJ 2MG/ML 2ML 2 MG/ML VIAL ONE (17:35)
[2020-03-23] MEDS ORDERED: ROCURONIUM BROMIDE 10 MG/ML 5ML VIAL IV ONE (17:35)
[2020-03-23] MEDS ORDERED: SEVOFLURANE INHAL SOLN 250 ML PEN BTL ONE (17:35)
[2020-03-23] MEDS ORDERED: GLYCOPYRROLATE INJ 0.2 MG/ML VIAL ONE (17:35)
[2020-03-23] MEDS ORDERED: PROPOFOL IV EMULSION 10 MG/ML 20 ML VIAL ONE (17:35)
[2020-03-23] MEDS ORDERED: DEXAMETHASONE SOD PHOS INJ 4 MG/ML VIAL ONE (17:35)
[2020-03-23] MEDS ORDERED: LIDOCAINE HCL 2% LOCAL INJ 5 ML SDV VIAL INJ ONE (17:35)
[2020-03-23] MEDS ORDERED: LIDOCAINE HCL 2% JELLY 5 ML TUBE ONE (17:35)
[2020-03-23 20:30] VITALS: BP 159/91
[2020-03-23] MEDS: ATORVASTATIN 20 MG TAB PO SCH (20:30)
[2020-03-23] MEDS: MELATONIN 3 MG TAB PO PRN (20:30)
--- NOTE | 2020-03-23 20:30 | NUR ---
PATIENT IS LAYING IN BED IN STABLE CONDITION, NO SIGNS OF DISTRESS NOTED. IV FLUIDS ARE RUNNING AT ORDERED RATE AND PATIENT VOICES PAIN AT A LEVEL OF 10, WAS MEDICATED ORDERED. RESENDIZ CATHETER NOTED DUE TO PREVIOUS PROCEDURE, PATIENT PRESENTS HEMATURIA. OPAL DRAIN IS PATENT AND SCD'S ARE IN PLACE. BED IS IN LOWEST POSITION, BOTH SIDE RAILS ARE UP, CALL LIGHT IS WITHIN EASY REACH, WILL CONTINUE TO MONITOR.
[2020-03-24] VITALS (8 sets, daily range): BP systolic 114–140; BP diastolic 70–98
[2020-03-24] MEDS: KETOROLAC TROMETHAMINE 30 MG/ML VIAL IV PRN ×3 (00:57→13:29)
[2020-03-24] MEDS: ONDANSETRON HCL INJ 2MG/ML 2ML 2 MG/ML VIAL IV PRN ×4 (00:57→20:30)
[2020-03-24] MEDS: SODIUM CHLORIDE 0.9% 1000ML 1,000 ML IV SCH ×3 (02:13→17:14)
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
[2020-03-24] MEDS: HYDROMORPHONE 1MG/1ML INJ IV PRN ×7 (04:35→23:54)
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
[2020-03-24] MEDS: DOCUSATE SODIUM LIQD 100 MG/10 ML UDC PO SCH ×2 (08:00→17:14)
[2020-03-24] MEDS: METOPROLOL TARTRATE 25 MG TAB PO SCH ×2 (08:00→17:14)
[2020-03-24] MEDS: CEFEPIME 1GM/NS 0.9% 50 ML 50 ML IV SCH ×2 (08:01→20:30)
[2020-03-24] MEDS: LISINOPRIL 10 MG TAB PO SCH (08:01)
[2020-03-24] MEDS: PANTOPRAZOLE SOD 40 MG TABEC PO SCH (08:01)
[2020-03-24] MEDS: GABAPENTIN 300 MG CAP PO SCH (08:01)
[2020-03-24] MEDS: POLYETHYLENE GLYCOL 3350 17 GM PACK PO PRN (08:18)
--- NOTE | 2020-03-24 19:28 | NUR ---
WALKING ROUNDS COMPLETE, REPORT GIVEN TO ONCOMING NURSE.
[2020-03-24] MEDS: ATORVASTATIN 20 MG TAB PO SCH (20:30)
[2020-03-25 00:45] VITALS: BP 129/75
[2020-03-25] MEDS: MELATONIN 3 MG TAB PO PRN (01:36)
[2020-03-25] MEDS: SODIUM CHLORIDE 0.9% 1000ML 1,000 ML IV SCH ×2 (01:39→09:03)
[2020-03-25] MEDS: HYDROMORPHONE 1MG/1ML INJ IV PRN ×3 (04:18→13:35)
[2020-03-25] MEDS: ONDANSETRON HCL INJ 2MG/ML 2ML 2 MG/ML VIAL IV PRN ×2 (04:18→11:51)
[2020-03-25 04:32] VITALS: BP 133/83
--- NOTE | 2020-03-25 07:30 | NUR ---
RECEIVED BEDSIDE SHIFT REPORT FROM OFF GOING NIGHT NURSE. PATIENT IN STABLE CONDITION, NO S/S OF DISTRESS NOTED. RESPIRATIONS EVEN AND NONLABORED. PATIENT ABLE TO VOICE NEEDS. RESENDIZ APPLIED DRAINING YELLOW URINE INTO THE DRAINAGE BAG. IV FLUIDS INFUSING, SITE ASYMPTOMATIC AND PATENT, TRANSPARENT DRESSING C/D/I. BED IN LOWEST POSITION AND LOCKED, SIDE RAILS X 2, NONSKID SOCKS APPLIED. CALL LIGHT WITHIN REACH.
[2020-03-25 08:47] VITALS: BP 132/88
[2020-03-25 08:55] VITALS: BP 132/88
[2020-03-25] MEDS: CEFEPIME 1GM/NS 0.9% 50 ML 50 ML IV SCH (09:03)
[2020-03-25] MEDS: DOCUSATE SODIUM LIQD 100 MG/10 ML UDC PO SCH (09:03)
[2020-03-25] MEDS: PANTOPRAZOLE SOD 40 MG TABEC PO SCH (09:04)
[2020-03-25] MEDS: GABAPENTIN 300 MG CAP PO SCH (09:04)
[2020-03-25] MEDS: METOPROLOL TARTRATE 25 MG TAB PO SCH (09:04)
[2020-03-25] MEDS: LISINOPRIL 10 MG TAB PO SCH (09:04)
[2020-03-25] MEDS: KETOROLAC TROMETHAMINE 30 MG/ML VIAL IV PRN (11:44)
[2020-03-25 13:19] VITALS: BP 139/91
--- NOTE | 2020-03-25 14:41 | NUR ---
EDUCATED ABOUT IMM, SIGNED, FILED IN CHART, WITH COPY LEFT WITH FAMILY AT BEDSIDE.
[2020-03-25] MEDS ORDERED: TYLENOL # 31 EA PO (15:10)
[2020-03-25] MEDS ORDERED: LEVOFLOXACIN250 MG PO (15:11)
--- NOTE | 2020-03-25 15:31 | NUR ---
PATIENT DISCHARGED HOME. PATIENT OFF THE UBIT @ 1529 VIA WHEELCHAIR ACCOMPANIED BY PCT TO THE LOBBY. PATIENT IN STABLE CONDITION, NO S/S OF DISTRESS NOTED. PICC LINE REMOVED WITH TIP INTACT. ALL PERSONAL ITEMS TAKEN WITH THE PATIENT. DISCHARGE TEACHING AND INSTRUCTION GIVEN T O THE PATIENT. PATIENT VERBALIZED UNDERSTANDING. DISCHARGE PAPERWORK AND PRESCRIPTIONS GIVEN TO THE PATIENT ALONG WITH RESENDIZ DRAINAGE BAGS.
== END 2020-03-25 15:30 | disposition home or self-care (01) | DRG 663 ==
LOC: ER 16:15 → ERHOLD 16:18 → MED/SURG3 19:55 → MED/SURG 03-23 16:25
PROVIDERS: ADMIT Family Medicine; ATTEND Family Medicine
PROC: 02HV33Z Insertion of Infusion Device into Superior Vena Cava, Percutaneous Approach (ICD-10-PCS; 2020-03-20)
PROC: 0T7D8ZZ Dilation of Urethra, Via Natural or Artificial Opening Endoscopic (ICD-10-PCS; 2020-03-23)
PROC: 0TQD0ZZ Repair Urethra, Open Approach (ICD-10-PCS; principal; 2020-03-23 13:00)
PROC: 0TPD0LZ Removal of Artificial Sphincter from Urethra, Open Approach (ICD-10-PCS; 2020-03-23 13:00)
DX: T83.111A Breakdown (mechanical) of implanted urinary sphincter, initial encounter (principal); N39.0 Urinary tract infection, site not specified; N36.0 Urethral fistula; I25.10 Atherosclerotic heart disease of native coronary artery without angina pectoris; D64.9 Anemia, unspecified; R32 Unspecified urinary incontinence; N52.9 Male erectile dysfunction, unspecified; E66.9 Obesity, unspecified; Z68.32 Body mass index [BMI] 32.0-32.9, adult; E78.5 Hyperlipidemia, unspecified; J45.909 Unspecified asthma, uncomplicated; Z20.828 Contact with and (suspected) exposure to other viral communicable diseases
CPT/HCPCS: 36415; 36569; 71045; 71046; 74450; 80048; 80053; 81001; 83605; 85025; 87040; 87086; 88300; 93306; 94640; 96361; 99284; J0295; J0690; J0692; J1100; J1170; J1580; J1885; J2001; J2175; J2250; J2370; J2405; J2710; J3010; J7030; U0002

== ENCOUNTER 2020-04-03 11:12 | Emergency (ER) | payer MEDICARE ==
[~2020-04-03] VITALS: Ht 170.2 cm; Wt 90.9 kg
[~2020-04-03 11:12] MED LIST changes: +ASPIRIN81 MG PO; +ATORVASTATIN CA20 MG PO; +CALCIUM CARBON200 MG PO; +GABAPENTIN300 MG PO; +LEVOFLOXACIN250 MG PO; +MELATONIN3 MG PO; +METOPROLOL TART25 MG PO; +MIRALAX17 GM PO; +PANTOPRAZOLE SO40 MG PO; +TYLENOL # 31 EA PO; +VENTOLIN HFA18 GM INH
--- NOTE | 2020-04-03 11:25 | NUR ---
Flushed gutierrez with 120ml of NS and it is draining clear yellow urine. Pt has increasing pain in left testicle which is swollen and red
[2020-04-03] MEDS ORDERED: ONDANSETRON HCL INJ 2MG/ML 2ML 2 MG/ML VIAL IV STA (11:28)
[2020-04-03] MEDS ORDERED: MORPHINE SULFATE 5 MG/ML VIAL IV ONE (11:30)
--- OUTSIDE RECORDS SUMMARY | 2020-04-03 11:37 | XMS REPORT | Clinical Summary ---
Author Author [facility] Organization [place] [facility] Address Unknown Phone Unavailable Care Team Providers Care [employer] Dean Name Role Phone Asked, No Pcp PCP [...] (Primary Dx) 06/27/2019 Emergency Emergency Medicine after 04/03/2019 Surgical History Surgery Date Site/Laterality Comments COLON [...] RENAL STONE PROTOCOL STAT 06/27/2019 7:06 PM TRANSPLANT COORDINATOR URINE CULTURE STAT 06/27/2019 5:47 PM TRANSPLANT COORDINATOR ESTIMATED GFR STAT 06/27/2019 5:30 PM TRANSPLANT COORDINATOR LIPASE LEVEL STAT 06/27/2019 5:30 PM TRANSPLANT COORDINATOR COMPREHENSIVE METABOLIC STAT 06/27/2019 PANEL 5:30 PM TRANSPLANT COORDINATOR HC COMPLETE BLD COUNT STAT 06/27/2019 W/AUTO DIFF 5:30 PM TRANSPLANT COORDINATOR URINALYSIS SCREEN AND STAT 06/27/2019 MICROSCOPY, WITH REFLEX 4:45 PM TRANSPLANT COORDINATOR TO CULTURE after 04/03/2019 Results * Urine culture (08/25/2019 11:33 AM CDT) Only the most recent of 2 results within the time period is included. Urine culture Mixed sisi <=10-3 col/cc [place] isolate Comment: HINDUISM Specimen Information HOSPITAL Specimen Source: Urine Specimen Site: Clean catch Specimen Urine Performing Organization Address City/State/ZIP Code P ford Number [facility] DEPARTMENT OF [address] [place] [address] PATHOLOGY AND GENOMIC MEDICINE [address] * Urinalysis screen and microscopy, with reflex to culture (08/25/2019 11:14 AM CDT) Only the most recent of 2 results within the time period is included. Specimen site Clean catch [facility] Color, UA Yellow [facility] Appearance, UA Slightly-Cloudy [facility] Specific 1.019 1.001 - 1.035 [place] gravity, [facility] pH, UA 7.0 5.0 - 8.5 [facility] Protein, UA Negative Negative [facility] Glucose, UA Negative Negative [facility] Ketones, UA Negative Negative [facility] Bilirubin, UA Negative Negative [facility] Blood, UA Negative Negative [facility] Nitrite, UA Negative Negative [facility] Urobilinogen, Negative <2.0 [facility] Leukocyte Negative Negative [place] esterase, [facility] Epithelial Many /HPF [place] cells, UA [facility] WBC, UA 7 (H) 0 - 1 /HPF [facility] RBC, UA 2 0 - 5 /HPF [facility] Bacteria, UA None seen None seen [facility] Yeast, UA None seen [facility] Yeast with None seen [place] pseudohyphae, [facility] Specimen Urine Performing Organization Address City/[facility]/ZIP Code P ford Number [facility] DEPARTMENT OF [address] [place] [address] PATHOLOGY AND GENOMIC MEDICINE [address] * Estimated GFR (08/25/2019 10:43 AM CDT) Only the most recent of 2 results within the time period is included. Pathologist [facility] Estimated GFR 83 mL/min/1.73 m2 [place] Comment: [facility] G1 >=90 Normal or high [...] published in 2014. Specimen Performing Organization Address City/[facility] [place] [address] PATHOLOGY AND GENOMIC MEDICINE [address] * CBC with platelet and differential [...] [facility] Immature 0.6 0.0 - 1.0 % [place] granulocytes [facility] Specimen Blood Performing Organization Address City/State/ZIP Code P ford Number [facility] DEPARTMENT OF [address] [place] [address] PATHOLOGY AND GENOMIC MEDICINE [address] * Comprehensive metabolic panel (08/25/2019 10:43 [...] [facility]OOK Alkaline 70 0 - 129 U/L [place] phosphatase [facility] AST 21 10 - 50 U/L [facility] ALT 21 5 - 50 U/L [facility] Total bilirubin <0.3 0.2 - 1.2 mg/dL [facility] Specimen Blood Performing Organization Address City/State/ZIP Code P ford Number [facility] DE[facility]MENT OF [address] [id number] PATHOLOGY AND GENOMIC MEDICINE [facility] [address] [place] [address] * CT Renal Stone Protocol (06/27/2019 7:06 PM TRANSPLANT COORDINATOR) Specimen Narrative Performed At EXAMINATION: CT RENAL [...] MRI would be useful for further evaluation. [facility]-[id number] Procedure Note Hm Interface, Radiology Results Incoming - 06/27/2019 7:24 PM TRANSPLANT COORDINATOR EXAMINATION: CT RENAL STONE PROTOCOL CLINICAL HISTORY: [...] MRI would be useful for further evaluation. [facility]-[id number] Performing Organization Address City/[facility]/ZIP Code P ford Number [facility] [address] [place] [address] * Lipase level (06/27/2019 5:30 PM TRANSPLANT COORDINATOR) Lipase 61 (H) 13 - 60 U/L [facility] Specimen Plasma specimen Performing Organization Address City/State/ZIP Code P ford Number [facility] DE[facility]MENT OF [address] [place] [address] PATHOLOGY AND GENOMIC MEDICINE [facility] [address] [place] [address] HOSPITAL after 04/03/2019 Insurance Type Payer Benefit Subscriber ID Effective Phone Address Plan / Dates Group [facility] MEDICARE AARP [id number] 2019-P MEDICARE resent ADVANTAGE PLAN HMO-POS ([place]INTHYA) Advance Directives For more information, please contact: [phone] Patient Office Professional Explanation Type Date Recorded Advance Directives, 10/11/2017 2:54 AM Living Will and Medical Power of [employer] Advance Directives, 11/13/2017 9:07 PM Living Will and Medical Power of [employer] Advance Directives, 06/27/2019 7:36 PM Living Will and Medical Power of [employer] Advance Directives, 08/25/2019 10:36 AM Living Will and Medical Power of [employer]
--- OUTSIDE RECORDS SUMMARY | 2020-04-03 11:39 | XMS REPORT | Continuity of Care Document ---
Author Author [facility] t Organization [facility] Address [address] [place] [address] Phone Unavailable Care Team Providers Care Manager Food Safety Name Role Phone Joy ESPINAL PCP Sweetie HODGES Attphys Unavailable AMARJIT DON Attphys Unavailable Roxanne PRETTY, Mario Alberto Godwin Attphys [phone] Booker PRETTY, Krunal Torres Attphys [phone] Sweetie HODGES Admphys Unavailable Payers Payer Name Policy Type Policy Number Effective Date Expiration Date Sweetie scotty [facility] Medicare Complete [id number] 2019 00:00:00 [facility] MEDICAREAARP MEDICARE ADVANTAGE PLAN HMO-POS (WELLMED)[id number] 2019-[facility] [id number] 2019 00:00 :00 Adiel Rosarioist Problems Condition Name Condition Details Condition Category Status Onset Date Resolution Date Last Treatment Date Treating Clinician Comments Source Urinary tract infection Problem Active [facility] Allergies, Adverse Reactions, Alerts Allergy Name Allergy Type Status Severity Reaction(s) Onset Date Inacti ve Date Treating Clinician Comments Source Morphine Allergy to substance Active 2020-03-12 00:00:00 [facility] Iodinated Contrast Media DA Active U 2020-01-21 00:00:00 [facility] No Known Allergies DA Active U 2020-01-21 00:00:00 [facility] No Known Allergies DA Active U 2019-11-10 00:00:00 [facility] morphine DA Active [place] 2019-10-15 00:00:00 [facility] morphine DA Active [place] 2019-07-29 00:00:00 [facility] morphine DA Active [place] 2019-02-10 00:00:00 [facility] morphine DA Active [place] 2019-01-13 00:00:00 [facility] morphine DA Active [place] 2018-10-07 00:00:00 [facility] morphine DA Active [place] 2018-10-06 00:00:00 [facility] CHLORHEXEDINE GLUCONATE WIPES DA Active [place] 2018-09-10 00:0 0:00 [facility] morphine DA Active [place] 2018-08-13 00:00:00 [facility] Morphine Propensity to adverse reactions to drug Active Itching 2018-04-28 00:00:00 Adiel angulo morphine DA Active [place] 2018-04-28 00:00:00 [facility] No Known Allergies DA Active U 2018-04-28 00:00:00 [facility] No Known Allergies DA Active U 2015-12-16 00:00:00 [facility] Social History Social Habit Start Date Stop Date Quantity Comments Source Sex Assigned At Katherine Ibarra Tobacco use and exposure 2019-08-25 00:00:00 2019-08-25 00:00:00 Bryan Ibarra Alcohol intake 2019-08-25 00:00:00 2019-08-25 00:00:00 [...] 6 H PRN P OR FEVER Adiel duggan albuterol (ACCUNEB) 2.5 mg /3 mL (0.083 %) nebulizer solutio n 2019-07-15 00:00:00 Yes VVN Q 8 H FOR 14 DAYS Adiel Ibarra ProAir HFA 90 mcg/actuation inhaler 2019-07-15 00:00:00 Yes SW AND INL 2 PUFFS PO Q 6 H PRN Adiel linares tiZANidine (ZANAFLEX) 4 MG tablet 2019-07-13 00:00:00 Ye s 4mg [id number] Take 4 mg by mouth 3 (three) times a day as needed. Adile Ibarra sulfamethoxazole-trimethoprim (BACTRIM DS) 800-160 mg per [...] Take 300 mg by mouth nightly. Adiel Georges thodist Acetaminophen/Codeine Phosphate (Tylenol # 3*) 1 Ea TA B Acetaminophen/Codeine Phosphate (Tylenol # 3*) 1 Ea TAB Yes Every 6 Hours as needed for Prn [facility] Albuterol Sulfate (Ventolin Hfa) 18 Gm HFA.AER.AD Albu terol Sulfate (Ventolin Hfa) 18 Gm HFA.AER.AD Yes 1 Every 6 Hours as needed for Wheezing [facility] Aspirin Aspirin Yes 81 Daily [facility] Atorvastatin Calcium Atorvastatin Calcium Yes 40 Bedtime [facility] Calcium Carbonate Calcium Carbonate Yes 40 0 Every 6 Hours as needed for Gas [facility] Gabapentin Gabapentin Yes [address] [facility] Levofloxacin Levofloxacin Yes 500 Daily [facility] Lisinopril Lisinopril Yes [address] [facility] Melatonin Melatonin Yes 6 Bedtime as needed fo r Sleep [facility] Metoprolol Tartrate Metoprolol Tartrate Yes 12.5 Twice A Day [facility] Pantoprazole Sodium (Protonix) 40 Mg TABLET. Pantopr azole Sodium (Protonix) 40 Mg TABLET. Yes 40 Daily [facility] Polyethylene Glycol 3350 (Miralax) 17 Gm POWD.PACK Je yethylene Glycol 3350 (Miralax) 17 Gm POWD.PACK Yes 17 Daily as nee ded for Constipation [facility] Prasugrel Hcl (Effient) 10 Mg TABLET Prasugrel Hcl (Effient) 10 Mg TABLET Yes 10 Daily for On Hold For Surgery [facility] Metoprolol Metoprolol 2020-03-18 00:00:00 No 25 D aily [facility] Vital Signs Vital Name Observation Time Observation Value Comments Source Body Temperature 2020-03-25 13:19:00 97.8 [degF] [facility] Heart Rate 2020-03-25 13:19:00 57 /min [facility] Respiratory rate 2020-03-25 13:19:00 20 /min [facility] BP Systolic 2020-03-25 13:19:00 139 mm[Hg] [facility] BP Diastolic 2020-03-25 13:19:00 91 mm[Hg] [facility] Oxygen saturation by Pulse oximetry 2020-03-25 13:19:00 98 /min [facility] BMI (Body Mass Index) 2020-03-18 22:37:00 32.1 kg/m2 [facility] Weight 2020-03-18 16:19:00 205 [lb_av] [facility] Systolic blood pressure 2019-08-25 11:00:00 168 mm[Hg] Adiel Ibarra Diastolic blood pressure 2019-08-25 11:00:00 98 mm[Hg] Adiel Ibarra Heart rate 2019-08-25 11:00:00 64 /min Adiel Ibarra Oxygen saturation in Arterial blood by Pulse oximetry 08-24 11:00:00 97 /min Chun [facility] Body temperature 2019-08-25 10:15:20 36.72 Rafaela [place] [facility] Respiratory rate 2019-08-25 10:15:20 19 /min [place] [facility] Body height 2019-08-25 10:15:00 170.2 cm Chun [facility] Body weight 2019-08-25 10:15:00 90.719 kg Welda Muslim BMI 2019-08-25 10:15:00 31.32 kg/m2 Adiel Ibarra Procedures Procedure Date / Time Performed Performing Clinician Sour e REVISION OF BLADDER NECK 2020-03-17 00:00:00 [facility] X-ray of chest, two views 2020-03-14 00:00:[address] [facility] URINE CULTURE 2019-08-25 11:33:00 Mere Gifford URINALYSIS SCREEN AND MICROSCOPY, WITH REFLEX TO CULTURE 11:14:00 Mere Gifford HC COMPLETE BLD COUNT W/AUTO DIFF 2019-08-25 10:43:00 Wilmer Gifford COMPREHENSIVE METABOLIC PANEL 2019-08-25 10:43:00 Alexis Gifford ESTIMATED GFR 2019-08-25 10:43:[address] RENAL STONE PROTOCOL 2019-06-27 19:06:29 Pearl Hsu URINE CULTURE 2019-06-27 17:47:00 JoseMaximo moreno Welda Meth odist HC COMPLETE BLD COUNT W/AUTO DIFF 2019-06-27 17:30:00 Luz Terrell se COMPREHENSIVE METABOLIC PANEL 2019-06-27 17:30:00 Bobby Terrell LIPASE LEVEL 2019-06-27 17:30:00 Bobby Terrellt on Muslim ESTIMATED GFR 2019-06-27 17:30:00 JoseMaximo Welda Meth odist URINALYSIS SCREEN AND MICROSCOPY, WITH REFLEX TO CULTURE 16:45:00 Bobby Terrell Plan of Care Planned Activity Planned Date Details Comments Source Future Scheduled Test 2019-12-05 00:00:00 INFLUENZA VACCINE [code = INFLUENZA VACCINE] [facility] Future Scheduled Test 2011-10-21 00:00:00 COLONOSCOPY SCREEN ING [code = COLONOSCOPY SCREENING] [facility] Future Scheduled Test 2011-10-21 00:00:00 SHINGLES VACCINES (#1) [code = SHINGLES VACCINES (#1)] Welda Muslim Instructions Post Operative Pain [facility] Instructions Urinary Tract Infection - Men [facility] Encounters Start Date/Time End Date/Time Encounter Type Admission Type [facility] Facility Care Department Encounter ID Source 2020-03-18 16:18:00 2020-03-25 15:30:00 Discharged Inpatient 1 ISAAK HODGES [facility] [id number] [facility] 2020-03-17 08:41:00 2020-03-17 08:41:00 Registered Surgical Day Car e 3 AMARJIT DON [facility] [id number] [facility] 2019-08-25 00:00:00 2019-08-25 00:00:00 Emergency Nick [facility] [id number] [facility] 2019-06-27 00:00:00 2019-06-27 00:00:00 Emergency BOBBY TERRELL [id number] [facility] 2018-08-13 15:15:00 2018-08-13 15:15:00 Emergency E [facility] Results Test Description Test Time Test Comments Results Result Comments Source URETHROGRAM (RETRO) 2020-03-23 09:58:00 [facility] 1960 Sex: M [place] [address] Patient Name: LAVONNE CONTRERAS MR #: [id number] : 1960 Age/Sex: 59/M Req #: [id number] [facility] Physician: Ordered by: AMARJIT DON MD Report #: [id number] Location: OR Room/Bed: Procedure: [id number] DX/URETHROGRAM (RETRO) Exam Date: 03/17/20 Exam Time: 110 REPORT STATUS: Signed OR Fluoroscopy: IMPRESSION: Fluoroscopy service provided in the OR. Interpretation not requested. Signed by: Daniele Cronin MD on 03/23/2020 10:00 AM Dictated By: DANIELE CRONIN MD 1000 Transcribed By: ISMA on 03/23/20 1000 COPY TO: AMARJIT DON MD Blood leukocytes automated count (number/volume) 2020-03-23 04:50:00 Test Item White Blood Count (test code = 6690-2) 4.85 10*3/uL 4.8-10.8 [facility] automated count (number/volume)2020-03-23 04:50:00* Test Item Value Reference Range Interpretation Comments Red Blood Count (test code = 789-8) 3.12 10*6/mL 4.3-5.7 [facility] hemoglobin measurement (moles/volume)2020-03-23 04:50:00* Test Item Value Reference Range Interpretation Comments Hemoglobin (test code = 27333-6) 8.5 g/dL 14.0-18.0 [facility] CampusAutomated blood hematocrit (volume fraction)2020-03-23 04:50:00* Test Item Value Reference Range Interpretation Comments Hematocrit (test code = 4544-3) 26.6 % 38.2-49.6 [facility] CampusAutomated erythrocyte mean corpuscular [id number] 04:50:00* Test Item Value Reference Range Interpretation Comments Mean Corpuscular Volume (test code = 787-2) 85.3 81-99 [facility] CampusAutomated erythrocyte mean corpuscular hemoglobin (mass per erythrocyte)2020-03-23 04:50:00* Test Item Value Reference Range Interpretation Comments Mean Corpuscular Hemoglobin (test code = 785-6) 27.2 pg 28-32 [facility] CampusAutomated erythrocyte mean corpuscular hemoglobin concentration measurement (mass/volume)2020-03-23 04:50:00* Test Item Value Reference Range Interpretation Comments Mean Corpuscular Hemoglobin Concent (test code = 786-4) 32.0 g/dL 31-35 [facility] CampusRDW KbmTg-Smq0810-71-18 04:50:00* Test Item Value Reference Range Interpretation Comments Red Cell Distribution Width (test code = 04491-2) 13.8 % 11.7 -14.4 [facility] CampusAutomated blood platelet count (count/volume)2020-03-23 04:50:00* Test Item Value Reference Range Interpretation Comments Platelet Count (test code = 777-3) 145 10*3/uL 140-360 [facility] CampusAutomated blood segmented neutrophil count as percentage of total iagnjvffzn9828-44-38 04:50:00* Test Item Value Reference Range Interpretation Comments Neutrophils (%) (Auto) (test code = 27494-5) 65.0 % 38.7-80.0 [facility] CampusAutomated blood lymphocyte count as percentage ot total icoytjsten0490-93-11 04:50:00* Test Item Value Reference Range Interpretation Comments Lymphocytes (%) (Auto) (test code = 736-9) 18.6 % 18.0-39.1 [facility] CampusAutomated blood monocyte count as percentage of total jusddjaldk2082-47-34 04:50:00* Test Item Value Reference Range Interpretation Comments Monocytes (%) (Auto) (test code = 5905-5) 10.1 % 4.4-11.3 [facility] CampusAutomated blood eosinophil count as percentage of total abcxnudsgj0478-96-26 04:50:00* Test Item Value Reference Range Interpretation Comments Eosinophils (%) (Auto) (test code = 713-8) 4.5 % 0.0-6.0 [facility] CampusAutomated blood basophil count as percentage of total zodupjlrtn9774-94-21 04:50:00* Test Item Value Reference Range Interpretation Comments Basophils (%) (Auto) (test code = 706-2) 1.0 % 0.0-1.0 [facility] CampusFluoroscopic procedure less than one hour fjaqkduh1542-23-64 04:50:00* Test Item Value Reference Range Interpretation Comments IM GRANULOCYTES % (test code = IM GRANULOCYTES %) 0.8 % 0.0- 1.0 [facility] CampusAutomated blood neutrophil count 2020-03-23 04:50:00* Test Item Value Reference Range Interpretation Comments Neutrophils # (Auto) (test code = 751-8) 3.2 2.1-6.9 [facility] lymphocytes count (number/volume) 2020-03-23 04:50:00* Test Item Value Reference Range Interpretation Comments Lymphocytes # (Auto) (test code = 44708-8) 0.9 1.0-3.2 [facility]Blood monocytes automated count (number/volume)2020-03-23 04:50:00* Test Item Value Reference Range Interpretation Comments Monocytes # (Auto) (test code = 742-7) 0.5 0.2-0.8 [facility] CampusAutomated blood eosinophil count 2020-03-23 04:50:00* Test Item Value Reference Range Interpretation Comments Eosinophils # (Auto) (test code = 711-2) 0.2 0.0-0.4 [facility] CampusAutomated blood basophil count (count/volume)2020-03-23 04:50:00* Test Item Value Reference Range Interpretation Comments Basophils # (Auto) (test code = 704-7) 0.1 0.0-0.1 [facility] CampusFluoroscopic procedure less than one hour jmcjjkro3691-30-29 04:50:00* Test Item Value Reference Range Interpretation Comments Absolute Immature Granulocyte (auto (radha t code = Absolute Immature Granulocyte (auto) 0.04 10*3/uL 0-0.1 [facility] or plasma sodium measurement (moles/volume)2020-03-23 04:50:00* Test Item Value Reference Range Interpretation Comments Sodium Level (test code = 2951-2) 140 mmol/L 136-145 [facility]erum or plasma potassium measurement (moles/volume)2020-03-23 04:50:00* Test Item Value Reference Range Interpretation Comments Potassium Level (test code = 2823-3) 3.4 mmol/L 3.5-5.1 [facility]erum or plasma chloride measurement (moles/volume)2020-03-23 04:50:00* Test Item Value Reference Range Interpretation Comments Chloride Level (test code = 2075-0) 109 mmol/L 98-107 [facility]erum or plasma carbon dioxide, total measurement (moles/volume)2020-03-23 04:50:00* Test Item Value Reference Range Interpretation Comments Carbon Dioxide Level (test code = 2028-9) 26 mmol/L 22- [facility]erum or plasma anion [id number] 04:50:00* Test Item Value Reference Range Interpretation Comments Anion Gap (test code = 54805-9) 8.4 mmol/L 8-16 [facility]erum or plasma urea nitrogen measurement (mass/volume)2020-03-23 04:50:00* Test Item Value Reference Range Interpretation Comments Blood Urea Nitrogen (test code = 3094-0) 6 mg/dL 7- [facility]erum or plasma creatinine measurement (mass/volume)2020-03-23 04:50:00* Test Item Value Reference Range Interpretation Comments Creatinine (test code = 2160-0) 0.74 mg/dL 0.72-1.25 [facility] Hospitalerum or plasma urea nitrogen/creatinine mass [id number] 04:50:00* Test Item Value Reference Range Interpretation Comments BUN/Creatinine Ratio (test code = 3097-3) 8 6- [facility] CampusEstimated glomerular filtration rate (GFR) fznvycalmzuzs9592-56-69 04:50:00* Test Item Value Reference Range Interpretation Comments Estimat Glomerular Filtration Rate (test code = 907047202) > 60 mL/ min >60 Ranges were taken from the National Kidney Disease Education Program and the [facility] [employer] literature.Reference ranges:60 or greater: Mfynut33-14 ( for 3 consecutive months): Chronic kidney disease 15 or less: Kidney failureThe Hospitals of Providence Sierra CampusGlucose lkdtvyrfhva7798-07-10 04:50:00* Test Item Value Reference Range Interpretation Comments Glucose Level (test code = XIT5164) 93 mg/dL 74-118 [facility] Hospitalerum or plasma calcium measurement (mass/volume)2020-03-23 04:50:00* Test Item Value Reference Range Interpretation Comments Calcium Level (test code = 98726-0) 7.6 mg/dL 8.4-10.2 [facility] Hospitalerum or plasma total bilirubin measurement (mass/volume)2020-03-23 04:50:00* Test Item Value Reference Range Interpretation Comments Total Bilirubin (test code = 1975-2) 0.5 mg/dL 0.2-1.2 [facility] CampusFluoroscopic procedure less than one hour jykhdtis7973-30-04 04:50:00* Test Item Value Reference Range Interpretation Comments Aspartate Amino Transf (AST/SGOT) (test code = Aspartate Amino Transf (AST/SGOT)) 14 [IU]/L 5-34 [facility] Hospitalerum or plasma alanine aminotransferase measurement (enzymatic activity/volume)2020-03-23 04:50:00* Test Item Value Reference Range Interpretation Comments Alanine Aminotransferase (ALT/SGPT) (test code = 1742-6) 22 [IU]/L 0-55 [facility] Hospitalerum or plasma protein measurement (mass/volume)2020-03-23 04:50:00* Test Item Value Reference Range Interpretation Comments Total Protein (test code = 2885-2) 5.3 g/dL 6.5-8.1 [facility] Hospitalerum or plasma albumin measurement (mass/volume)2020-03-23 04:50:00* Test Item Value Reference Range Interpretation Comments Albumin (test code = 1751-7) 2.9 g/dL 3.5-5.0 [facility] CampusPlasma globulin measurement (mass/volume) 2020-03-23 04:50:00* Test Item Value Reference Range Interpretation Comments Globulin (test code = 17713-7) 2.4 g/dL 2.3-3.5 [facility] Hospitalerum or plasma albumin/globulin mass [id number] 04:50:00* Test Item Value Reference Range Interpretation Comments Albumin/Globulin Ratio (test code = 1759-0) 1.2 0.8-2.0 [facility] Hospitalerum or plasma alkaline phosphatase measurement (enzymatic activity/volume)2020-03-23 04:50:00* Test Item Value Reference Range Interpretation Comments Alkaline Phosphatase (test code = 6768-6) 132 [IU]/L 40-150 [facility] CampusCHEST XRAY LINE [id number] 19:15:00[facility] 1960 Sex: M [place] [address] Patient Name: LAVONNE CONTRERAS MR #: [id number] : 1960 Age/Sex: 59/M Req #: [id number] [facility] Physician: ISAAK HODGES MD Ordered by: ISAAK HODGES MD Report #: [id number] [facility] Room/Bed: [facility] ____ Procedure: [id number] DX/CHEST XRAY LINE PLACEMENT Exam Date: 03/20/20 Exam Time: 1854 REPORT STATUS: Signed EXAMINATION: CHEST XRAY LINE PLACEME NT INDICATION: s/p picc placement 20200320 PARISON: Chest x-ray 03/14/2020 FINDINGS: TUBES and LINES: Ne w right upper extremity PICC, tip terminates in the superior cavoatrial juncti on. LUNGS: Normal lung volumes. Lungs are clear. No consolidations. PLEURA: No pleural effusion or pneumothorax. HEART AND MEDIASTINUM: The cardiomediastinal silhouette is unremarkable. BONES AND SOFT TISSUE S: No acute osseous lesion. Soft tissues are unremarkable. Healed right lowe r rib fracture. UPPER ABDOMEN: No free air under the diaphragm. IM PRESSION: New right upper extremity PICC, tip terminates in the superior c avoatrial junction. Signed by: Charlie Martínez DO on 03/20/2020 7:17 PM Dictated By: CHARLIE MARTÍNEZ DO 16 Transcribed By: ISMA on 03/20/201916 COPY TO: ISAAK HODGES MD Urine color [id number] 17:32:00* Test Item Value Reference Range Interpretation Comments Urine Color (test code = 5778-6) BROWN YELLOW [facility]Urine [id number] 17:32:00* Test Item Value Reference Range Interpretation Comments Urine Clarity (test code = 90695-4) CLOUDY CLEAR [facility] Hospitalpecific gravity of Urine by Test strip 2020-03-18 17:32:00* Test Item Value Reference Range Interpretation Comments Urine Specific Dinosaur (test code = 5811-5) >=1.030 1.010-1.02 5 [facility] CampusUrine pH measurement by automated test zblmb3202-95-81 17:32:00* Test Item Value Reference Range Interpretation Comments Urine pH (test code = 63645-6) 5.5 5-7 [facility] CampusUrine leukocyte esterase detection by flulizfp9477-74-51 17:32:00* Test Item Value Reference Range Interpretation Comments Urine Leukocyte Esterase (test code = 5799-2) NEGATIVE NEGATIVE [facility] CampusUrine nitrite ghtibjsty8424-00-83 17:32:00* Test Item Value Reference Range Interpretation Comments Urine Nitrite (test code = 85337-8) POSITIVE NEGATIVE [facility] CampusUrine protein measurement by test strip (mass/volume)2020-03-18 17:32:00* Test Item Value Reference Range Interpretation Comments Urine Protein (test code = 5804-0) 2+ NEGATIVE [facility] CampusUrine glucose cgemzcrki8650-18-78 17:32:00* Test Item Value Reference Range Interpretation Comments Urine Glucose (UA) (test code = 2349-9) NEGATIVE NEGATIVE [facility] CampusUrine ketones detection by automated test [id number] 17:32:00* Test Item Value Reference Range Interpretation Comments Urine Ketones (test code = 52037-3) TRACE NEGATIVE [facility] CampusUrine urobilinogen measurement by test strip (mass/volume)2020-03-18 17:32:00* Test Item Value Reference Range Interpretation Comments Urine Urobilinogen (test code = 99113-8) 1 mg/dL 0.2-1 [facility] CampusUrine total bilirubin measurement (mass/volume)2020-03-18 17:32:00* Test Item Value Reference Range Interpretation Comments Urine Bilirubin (test code = 1978-6) NEGATIVE NEGATIVE [facility] CampusUrine erythrocytes yrfcnoene8075-90-40 17:32:00* Test Item Value Reference Range Interpretation Comments Urine Blood (test code = 61754-5) LARGE NEGATIVE [facility] CampusAutomated urine sediment leukocyte count by microscopy (number/high power field)2020-03-18 17:32:00* Test Item Value Reference Range Interpretation Comments Urine WBC (test code = 5821-4) NONE /[HPF] 0-5 [facility] CampusErythrocytes detection in urine sediment by light dshrwmhzzg1399-48-91 17:32:00* Test Item Value Reference Range Interpretation Comments Urine RBC (test code = 52065-1) 21-50 /[HPF] 0-5 [facility] CampusBacteria detection in urine sediment by light mmggsvktrv2435-47-59 17:32:00* Test Item Value Reference Range Interpretation Comments Urine Bacteria (test code = 83657-0) MANY /[HPF] NONE [facility] CampusEpithelial cells detection in urine sediment by light bbrjuzqqeg1304-33-51 17:32:00* Test Item Value Reference Range Interpretation Comments Urine Epithelial Cells (test code = 58410-5) RARE /[LPF] NONE [facility] CampusFluoroscopic procedure less than one hour dxikikxi3498-34-72 17:32:00* Test Item Value Reference Range Interpretation Comments Lactic Acid Level (test code = Lactic Acid Level) 1.6 mmol/L 0.5- 2.0 [facility] CampusFluoroscopic procedure less than one hour sxulivqe5828-87-40 17:32:00* Test Item Value Reference Range Interpretation Comments Coronavirus (PCR) (test code = Coronavirus (PCR)) NOT DETECTED NOTD ETECTED SARS-COV-2 (COVID19), NAATReal Time PCR (RT-PCR)Negative results do not preclude SARS-CoV-2 infection and should not be used as the sole basis for patient manag ement decisions. Negative results must be combined with clinical observations, p atient history, and epidemiological information. Optimum specimen types and dona ng for peak viral levels during infections caused by SARS-CoV-2 have not been de termined. Collection of multiple specimens ot types of specimens may be necessar y to detect virus. Improper specimen collection and handling, sequence variabili ty under primers/probes, or organism present below the limit of detection may le ad to false negative results. Positive and negative predictive values of testing are highly dependent on prevalance. False negative test results are more likely when prevalence is high.The expected result is negative (not detected).Methodol ogy is Huy Markie Real-Time RT-PCRFor more information regarding COVID-19 testi ng to include clinical information, methodology detail, intended use, FDA author ization and recommended fact sheets for patients or healthcare providers, see Yen w Test Announcement: SARS-CoV-2 by NAAT at: [email or web address]/c lacy-communications/Unless otherwise indicated, all testing is performed at:[facility] Pathology [address] [place] [address] [phone] tory Director: Mary Fischer M.D.[facility] # [id number] [facility] [id number] 17:32:00* Test Item Value Reference Range Interpretation Comments Blood Culture (test code = [id number]) NO GROWTH AFTER 5 DAYS, FINAL REPORT [facility] NATRIURETIC [id number] 13:27:00* Test Item Value Reference Range Interpretation Comments B-TYPE NATRIURETIC PEPTIDE (test code = BNP) 36.0 PG/ML 0-100 N - CT ABD PELVIS W/O [id number] 13:25:00 [facility] SANGEETHA PEYTONName: LAVONNE CONTRERAS : 1960 Sex: M Name: LAVONNE CONTRERAS [facility] [place] : 1960 Age/S: 59 / M [address] [place] [address] Unit #: [id number] Loc: [place] [address] Phys: Thom Bliss Acct: [id number] Dis Date: Stat us: REG ER PHONE #: [phone] Exam Date: 03/18/2020 1301 FAX #: [phone] Reason: flank kacie n, fever, vomiting EXAMS: CPT CODE: [id number] CT ABD PELVIS W/O CONT 39522 PROCEDURE: CT ABDOMEN AND PELVIS WITHOUT CONTRAST ( RENAL STONE CT) INDICATION: flank pain, fever, vomiting; 59-year-o ld male with history of recent bladder procedure, timing not specified. COMPARISON: CT abdomen and pelvis without contrast 01/21/2020, 01/01/2020 TECHNIQUE: Noncontrasted helical imaging was performed d [facility] through the symphysis as a renal stone protocol with multiplanar reconstructions. CT imaging performed at this location utilizes radi [place] dose optimization techniques which include one or [...] 1 Signed Report (CONTINUED) Name: LAVONNE CONTRERAS [facility] : 1960 Age/S: 59 / M [address] [place] [address] Blvd Unit #: [id number] Loc: [place] [address] Phy s: Eliazar Blissfeliz RUIZ Acct: [id number] Dis Date: Status: REG ER PHONE #: [phone] Exam Date: 03/18/2020 1301 FAX #: [phone] Reason: flank pain, fever, vomiting EXAMS: CPT CODE: [id number] CT ABD PELVIS W/O CONT 64762 <Continued> APPENDIX: Surgically absent PERITONEUM: There is [...] burden. PAGE 2 Signed Report (CONTINUED) Name: LAVONNE HEALY [facility] : [birth year] Age/S: 59 / M [address] [place] [address] Blvd Unit #: [id number] Loc: [place] [address] Phys: Thom Bliss Acct: [id number] Dis Date: Status: REG ER PHONE #: [phone] Exam Date: 03/18/2020 1301 FAX #: [phone] R rashaun: flank pain, fever, vomiting EXAMS: CPT CODE: [id number] CT ABD PELVIS W/O CONT 70644 <Continued> 5. Other chronic nonemergent findings as above. SL: [id number] at 1325 Reported and signed by: Dru Rodriguez M.D. CC: Bassam Fajardo DO; Tony Espinal DO; Thom RUIZ Technologist:RT Milvia(R)(CT) CTDI: DLP: Trnscb Date/Time: 03/18/2020 (1325) tJOYCELYN Orig Print D/T: S: 03/18/2020 (1731) PAGE 3 Signed Report COMPREHENSIVE METABOLIC [id number] 13:23:00* Test Item Value Reference Range Interpretation [...] code = ALKP) 139 IUnit/L 20-125 H [id number] 13:22:00* Test Item Value Reference Range Interpretation Comments TROPONIN-I (test code = TROPI) < 0.006 ng/mL 0.000-0.045 N Negative: <= 0.045 Positive: >= 0.046 Correlation with serial results, other cardiac markers andclinical findings is necessary to determine the clinicalsignificance of this result. Results using different methodologies should not be comparedto one another as quantitative results may vary by method. LACTIC [id number] 13:13:00* Test Item Value Reference Range Interpretation Comments LACTIC ACID (test code = LACT) 1.9 mmol/L 0.4-1.9 N CBC W/AUTO [id number] 13:05:00* Test Item Value Reference Range Interpretation [...] (test code = MDIFF) NO CBC W/AUTO [id number] 13:01:00* Test Item Value Reference Range Interpretation [...] = MDIFF) UA RFLX MICR CULT IF [id number] 11:57:00* Test Item Value Reference Range Interpretation [...] Flank PainSpecimen Description: [facility] 2 [id number] 12:35:00 [facility] : 1960 Sex: M [place] [address] Patient Name: LAVONNE CONTRERAS MR #: [id number] : 1960 Age/Sex: 59/M Req #: [id number] Adm Physician: Dianne copeland by: AYAAN DON MD Report #: [id number] Locati on: OR Room/Bed: Procedure: [id number] DX/CHEST 2 VIEWS Exam Date: 03/14/20 Exam [...] ISMA on 03/14/20 1236 C OPY TO: AYAAN DON MD BASIC METABOLIC [id number] 11:11:00* Test Item Value Reference Range Interpretation [...] CA) 9.0 mg/dL 8.5-10.1 N HEPATIC FUNCTION [id number] 11:11:00* Test Item Value Reference Range Interpretation [...] reference range due to change in reagent. [id number] 11:11:00* Test Item Value Reference Range Interpretation Comments LIPASE (test code = LIP) 210 U/L 73.0-393.0 N LACTIC [id number] 11:11:00* Test Item Value Reference Range Interpretation Comments LACTIC ACID (test code = LACT) 1.3 mmol/L 0.4-1.9 N BASIC METABOLIC [id number] 11:01:00* Test Item Value Reference Range Interpretation [...] code = CA) mg/dL 8.5-10.1 HEPATIC FUNCTION [id number] 11:01:00* Test Item Value Reference Range Interpretation [...] TOTAL (test code = ALKP) IUnit/L 45-117 [id number] 11:01:00* Test Item Value Reference Range Interpretation Comments LIPASE (test code = LIP) U/L 73.0-393.0 URINALYSIS [id number] 10:59:00* Test Item Value Reference Range Interpretation [...] FEW #/LPF FEW Urine Source? Clean CatchURINALYSIS [id number] 10:57:00* Test Item Value Reference Range Interpretation [...] HPF NONE Urine Source? Clean CatchCBC W/O [id number] 10:56:00* Test Item Value Reference Range Interpretation [...] 6.7-11.0 N - CT ABD PELVIS W/O [id number] 10:29:00 Name: LAVONNE CONTRERAS [facility] : 1960 Age/S: 59 / M [address] [facility] Unit #: [id number] Loc: [place] [address] Phys: Katelyn Daigle NP Acct: [id number] Dis Date: Status: REG ER PHONE #: [phone] Exam Date: 01/21/2020 1001 FAX #: [phone] Reason: L flank pain EXAMS: CPT CODE: [id number] CT ABD PELVIS W/O CONT 41912 REASON FOR EXAM: L flank pain EXAM ORDER DATE: 01/21/2020 9:53 AM Ordering M.D.: Katelyn Daigle NP PROCEDURE: Axial CT images [...] 1 Signed Report (CONTINUED) Name: LAVONNE CONTRERAS [facility] : 1960 Age/S: 59 / M [address] [facility] Unit #: [id number] Loc: [place] [address] Phys: Katelyn Daigle NP Acct: [id number] Dis Date: S tatus: REG ER PHONE #: [phone] Exam Da te: 01/21/2020 1001 FAX #: [phone] Reason: L flan k pain EXAMS: CPT CODE: [id number] CT ABD PELVIS W/O CONT 96095 <Continued> right upper abdomen () and are [...] unchanged from the previous e xam. Location: [facility] at 1029 Reported and signed by: Joe Vu MD CC: Katelyn Daigle NP; TONY ESPINAL Technologist:Tashia Odonnell,RT(R),CT CTDI: DLP: Tr nscb Date/Time: 01/21/2020 (1029) t.ALTAFR.RR31 Orig Print D/ T: S: 01/21/2020 (1032) PAGE 2 Signed Report UA RFLX MICR CULT IF [id number] 10:41:00* Test Item Value Reference Range Interpretation [...] URINE: VOIDEDIndication for culture: Flank PainBASIC METABOLIC [id number] 10:24:00* Test Item Value Reference Range Interpretation [...] CA) 8.8 mg/dL 8.4-10.2 N LIVER FUNCTION [id number] 10:24:00* Test Item Value Reference Range Interpretation [...] code = ALKP) 71 U/L 38-126 N [id number] 10:24:00* Test Item Value Reference Range Interpretation Comments LIPASE (test code = LIP) 235 U/L 23-300 N - CT ABD PELVIS W/O [id number] 10:13:00 [place]: St: REG Name: LAVONNE HEALY [facility] : 2 Age/S: 59/M [address] Unit: [id number] Loc: [place] [address] Phys: Kerry Navas ANP Acct: [id number] Dis Date: Status: REG ER PHONE #: Exam Date: 01/01/2020 3101 FAX #: [phone] Reason: LEFT FLANK PAIN EXAMS: CPT CODE: [id number] CT ABD PELVIS W/O CONT 93557 HISTORY: Left flank pain, kidney problems. CT [...] s: CAT St: REG Name: LAVONNE CONTRERAS [facility] : 1960 Age/S: 59/M [address] Unit: [id number] Loc: [place] [address] Ph ys: Kerry Navas ANP Acct: C [id number] Dis Date: Status: REG ER PHONE #: [phone] Exam Date: 01/01/2020 0955 FAX #: [phone] Reason: LEFT FLANK PAIN EXAMS: CPT CODE: [id number] CT ABD PELVIS W/O CONT 27115 <Continued> change. Old trauma of the SI [...] Technologist: Harleen Meier; FINESSE MUKHERJEE Trnscrd Dt/Tm: 0 (1013) t.ALTAFR.RCM1 Orig Print D/T: S: 01/01/2020 (1017 PAGE 2 Signed Report CBC W/AUTO [id number] 10:03:00* Test Item Value Reference Range Interpretation [...] 0.08 x10 3/uL 0.0-0.1 N CARDIAC ENZYMES [id number] 22:47:00* Test Item Value Reference Range Interpretation [...] is used.~~~~~~~~~~~~~~~~~~~~~~~~~~~~~~~~~~~~~~~~~~~~~~~~~~~~~~~~~~~ UA RFLX MICR CULT IF [id number] 22:22:00* Test Item Value Reference Range Interpretation [...] CHD)40-59mg/dL: Borderline Risk LDL Cholesterol<100mg/dL: Desirable LDL-C eevbdmnvmhscw191-917pr/dL: Borderline High Risk LDL-C dnqklqiefgkkq923- 189mg/dL: High risk LDL-C concentration HDL-LDL Cholesterol is affected by a number of factors suchas smoking, age and sex.~~~~~~~~~~~~~~~~~~~~~~~~~~~~~~~~~~~~~~~~~~~~~~~~~~~~~~~~~~~~ [id number] 18:52:00* Test Item Value Reference Range Interpretation Comments MAGNESIUM (test code = MAG) 2.2 mg/dL 1.6-2.3 N CARDIAC ENZYMES [id number] 18:44:00* Test Item Value Reference Range Interpretation [...] valid only if similarmethodology is used.~~~~~~~~~~~~~~~~~~~~~~~~~~~~~~~~~~~~~~~~~~~~~~~~~~~~~~~~~~~ LACTIC [id number] 18:33:00* Test Item Value Reference Range Interpretation Comments LACTIC ACID (test code = LACT) 2.0 mmol/L 0.7-2.0 N - CT ABD PELVIS W/[id number] 16:39:00 [place]: CAT St: REG Name: LAVONNE HEALY [facility] : 2 Age/S: 59/M [address] Unit: [id number] Loc: [place] [address] Phys: Jim Brito MD Acct: [id number] Dis Date: Status: REG ER PHONE #: [phone] Exam Date: 11/10/2019 1630 FAX #: [phone] Reason: left abd pain EXAMS: CPT CODE: [id number] CT ABD PELVIS W/CONT 32225 CT Abdomen and Pelvis with contras t. Location: W1 Clinical indication: 59-year-old wit h left abdominal pain Comparison: January 28, 2019 Technique: Computed axial images were obtained from the diaphragms throug h the pubic symphysis following IV administration of 100 mL Isovue-300. Up to date CT equipment and radiation dose reduction technique were utilized . Findings: Abdomen: Lung bases are clear. The [...] to account fo r patient's symptoms. at 1639 Reported and signed by: Mike Forbes MD CC: Lisa gist: JAYRO AGUILAR; Hannah Ford Trnscrd Dt/Tm: 11/2019 (1639) TannaRB24 Orig Print D/T: S: 11/10/2019 ( 3062 PAGE 1 Signed Report LACTIC [id number] 14:26:00* Test Item Value Reference Range Interpretation Comments LACTIC ACID (test code = LACT) 3.1 mmol/L 0.7-2.0 HH Critical Value reported toFirst Name:[id number] Last Name:RESULTS READ BACK AND VERIFIEDby C.LAB.MY, on 11/10/19, @ 0273. BASIC METABOLIC [id number] 14:04:00* Test Item Value Reference Range Interpretation [...] CA) 8.6 mg/dL 8.4-10.2 N LIVER FUNCTION [id number] 14:04:00* Test Item Value Reference Range Interpretation [...] code = ALKP) 117 U/L 38-126 N [id number] 14:04:00* Test Item Value Reference Range Interpretation Comments LIPASE (test code = LIP) 438 U/L 23-300 H NT PRO-BRAIN NATRIURETIC [id number] 14:04:00* Test Item Value Reference Range Interpretation Comments NT PRO-BRAIN NATRIURETIC PEPTI (test code = PROBNP) 22.0 pg/mL 0- 299 N ~~~~~~~~~~~~~~~~~~~~~~~~~~~~~~~~~~~~~~~~~~~~~~~~~~~~~~~~~~~~NT PRO-BNP IS THE REPLACEMENT ASSAY FOR BNP.~~~~~~~~~~~~~~~~~~~~~~~~~~~~~~~~~~~~~~~~~~~~~~~~~~~~~~~~~~~~RULE-IN CUT POINTS FOR PATIENTS WITH SUSPECTED ACUTECONGESTIVE HEART FAILURE:<50 yrs old: >450 pg/mL50-75 yrs old: >900 pg/mL>75 yrs old: >1800 pg/mLA positive bias may occur on patients taking BIOTINsupplements. COVID 19 INHOUSE [id number] 14:04:00* Test Item Value Reference Range Interpretation Comments COVID 19 INHOUSE AG (test code = [id number]) NEGATIVE Negative BASIC METABOLIC [id number] 13:55:00* Test Item Value Reference Range Interpretation [...] CA) 8.6 mg/dL 8.4-10.2 N LIVER FUNCTION [id number] 13:55:00* Test Item Value Reference Range Interpretation [...] code = ALKP) 117 U/L 38-126 N [id number] 13:55:00* Test Item Value Reference Range Interpretation Comments LIPASE (test code = LIP) 438 U/L 23-300 H NT PRO-BRAIN NATRIURETIC [id number] 13:55:00* Test Item Value Reference Range Interpretation Comments NT PRO-BRAIN NATRIURETIC PEPTI (test code = PROBNP) pg/mL 0- 299 BASIC METABOLIC [id number] 13:54:00* Test Item Value Reference Range Interpretation [...] CA) 8.6 mg/dL 8.4-10.2 N LIVER FUNCTION [id number] 13:54:00* Test Item Value Reference Range Interpretation [...] code = ALKP) 117 U/L 38-126 N [id number] 13:54:00* Test Item Value Reference Range Interpretation Comments LIPASE (test code = LIP) U/L 23-300 NT PRO-BRAIN NATRIURETIC [id number] 13:54:00* Test Item Value Reference Range Interpretation Comments NT PRO-BRAIN NATRIURETIC PEPTI (test code = PROBNP) pg/mL 0- 299 PROTHROMBIN [id number] 13:40:00* Test Item Value Reference Range Interpretation [...] with Food and Drug Administrationrecommendations. THROMBOPLASTIN TIME [id number] 13:40:00* Test Item Value Reference Range Interpretation Comments THROMBOPLASTIN TIME PARTIAL (test code = PTT) 24.8 SECONDS 23.4-37. 0 N Therapeutic Range for Heparin EFFECTIVE 11/12/12 Heparin IU/mL aPTT Seconds0.3 64.30.7 88.8 CBC W/AUTO [id number] 13:30:00* Test Item Value Reference Range Interpretation [...] 0.06 x10 3/uL 0.0-0.1 N TROPONIN I [id number] 13:17:00* Test Item Value Reference Range Interpretation [...] similarmethodology is used. - XR CHEST 1 [id number] 12:47:00 [place]: St: REG Name: LAVONNE BAEZA [facility] : [birth year] Age/S: 59/M [address] Unit #: [id number] Loc: [place] [address] Phys: Jim Brito MD Acct: [id number] Dis Date: Status: REG ER PHONE #: [phone] Exam Date: 11/10/2019 1251 FAX #: [phone] Reason: sob EXAMS: CPT CODE: [id number] XR CHEST 1 V 11400 EXAM: CHEST ONE VIEW INDICATION: Shortness of [...] LEIDY GRANADOS RT (R) Trnscrd Date/Time/By: 11/10/2019 (1247) : By: Tanna PRETTY16 PAGE 1 Signed Report [place]: St: REG Name: LAVONNE CONTRERAS [facility] : 1960 Age/S: 59/M [address] Unit #: [id number] Loc: [place] [address] Phys: Rafi Brito MD Acct: [id number] Dis Date: Status: REG ER PHONE #: Exam Date: 11/10/2019 1251 FAX #: Reason: sob EXAMS: CPT CODE: [id number] XR CHEST 1 V 12973 <Continued> Orig Print D/T: S: 11/10/2019 (4219) PAGE 2 Signed Report VITAMIN [id number] 18:08:00* Test Item Value Reference Range Interpretation Comments VITAMIN B12 (test code = VITB12) 176 pg/mL 193-986 L THYROID PROFILE [id number] 18:08:00* Test Item Value Reference Range Interpretation [...] : < 0.35 mIU/mL VIT B1 WHOLE [id number] 18:08:00* Test Item Value Reference Range Interpretation Comments VIT B1 WHOLE BLOOD (test code = YVZW9EU) 119.4 nmol/L 66.5-200.0 Performed At: [address] [id number] Johns MD Ph:[phone] AB HIV 1 15:11:00* Test Item Value Reference Range Interpretation Comments AB HIV 1 2 (test code = NOE11JO) Nonreactive NonReactive It is recognized that currently available assays for thedetection of antibodies to HIV-1 and/or HIV-2 may notdetect all infected individuals. A negative test result doesnot exclude the possibility of exposure to or infection withHIV. HIV antibodies may be undetectable in some stages ofthe infection and in some clinical conditions. VITAMIN [id number] 07:50:00* Test Item Value Reference Range Interpretation Comments VITAMIN B12 (test code = VITB12) 176 pg/mL 193-986 L THYROID PROFILE [id number] 07:50:00* Test Item Value Reference Range Interpretation [...] : < 0.35 mIU/mL VIT B1 WHOLE [id number] 07:50:00* Test Item Value Reference Range Interpretation Comments VIT B1 WHOLE BLOOD (test code = RDZG4GJ) nmol/L 87-280 - CTA CHEST FOR [id number] 11:19:00 Name: LAVONNE CONTRERAS [facility] : 1960 Age/S: 59 / M [address] Unit #: [id number] Loc: [place] [address] Phys: Laurent Fletcher MD Acct: [id number] Dis Date: Status: ADM IN PHONE #: [phone] Exam Date: 11/01/2019 1057 FAX #: [phone] Reason: Shortness of breath / Lung disease EXAMS: CPT CODE: [id number] [place] [address] HISTORY: Shortness of breath. COMPARISON: CTA chest [...] PA GE 1 Signed Report THROMBOPLASTIN TIME [id number] 11:06:00* Test Item Value Reference Range Interpretation Comments THROMBOPLASTIN TIME PARTIAL (test code = PTT) 44.8 seconds 23.0-37. 0 H IS PATIENT ON ANTICOAGULANTS? YLIST ANTICOAGULANTS HEPARINSPECIMEN COMMENTS: PLEASE DRAW AT 10:55COMMENTS TO KOHINOOR OPERATOR: PLEASE DRAW AT 10:55COMPREHENSIVE METABOLIC [id number] 11:05:00* Test Item Value Reference Range Interpretation [...] reference range due to change in reagent. [id number] 11:05:00* Test Item Value Reference Range Interpretation Comments LIPASE (test code = LIP) 235 U/L 73.0-393.0 N [id number] 11:05:00* Test Item Value Reference Range Interpretation Comments TROPONIN-I (test code = TROPI) <0.015 ng/mL 0-0.045 N COMPREHENSIVE METABOLIC [id number] 10:58:00* Test Item Value Reference Range Interpretation [...] TOTAL (test code = ALKP) IUnit/L 45-117 [id number] 10:58:00* Test Item Value Reference Range Interpretation Comments LIPASE (test code = LIP) U/L 73.0-393.0 CBC W/AUTO [id number] 10:30:00* Test Item Value Reference Range Interpretation [...] NRBC#) 0.00 K/mm3 0.0-0.1 N THROMBOPLASTIN TIME [id number] 03:48:00* Test Item Value Reference Range Interpretation Comments THROMBOPLASTIN TIME PARTIAL (test code = PTT) 110.0 seconds 23.0-37 .0 HH Results called to [id number] by MADELAINEJMVijay 11/01/19 0348Critical results verified and read back by Nurse? Y IS PATIENT ON ANTICOAGULANTS? YLIST ANTICOAGULANTS HEPARINTHROMBOPLASTIN TIME [id number] 01:07:00* Test Item Value Reference Range Interpretation Comments THROMBOPLASTIN TIME PARTIAL (test code = PTT) 82.7 seconds 23.0-37. 0 H IS PATIENT ON ANTICOAGULANTS? YLIST ANTICOAGULANTS HEPARINSPECIMEN COMMENTS: PLEASE DRAW AT 02:28COMMENTS TO KOHINOOR OPERATOR: PLEASE DRAW AT 02:28TROPONIN-I 2019-10-31 22:03:00* Test Item Value Reference Range Interpretation Comments TROPONIN-I (test code = TROPI) <0.015 ng/mL 0-0.045 N COMMENTS TO KOHINOOR OPERATOR: COLLECT 3 HOURS AFTER PREVIOUS [id number] 19:26:00* Test Item Value Reference Range Interpretation Comments TROPONIN-I (test code = TROPI) <0.015 ng/mL 0-0.045 N COMMENTS TO KOHINOOR OPERATOR: COLLECT 3 HOURS AFTER PREVIOUS SAMPLETHROMBOPLASTIN TIME [id number] 19:19:00* Test Item Value Reference Range Interpretation Comments THROMBOPLASTIN TIME PARTIAL (test code = PTT) 25.0 seconds 23.0-37. 0 N IS PATIENT ON ANTICOAGULANTS? YLIST ANTICOAGULANTS HEPARINB-TYPE NATRIURETIC [id number] 12:55:00* Test Item Value Reference Range Interpretation Comments B-TYPE NATRIURETIC PEPTIDE (test code = BNP) 39.16 pgram/mL 0-100 N - XR CHEST 1 [id number] 12:42:00 FAX: Maia Roy [phone] [place]: B St: PRE Name: Milli GILBERTOLAVONNE ELBERT [facility] : [birth year] Age/S: 59/M [address] [facility] Unit #: [id number] Loc: [place], [place] [address] Phys: Maia Irvin Acct: [id number] Dis Date: Status: PRE ER PHONE #: [phone] Exam Date: 10/31/2019 1225 FAX #: [phone] Reason: SHORTNESS OF BREATH EXAMS: CPT CODE: [id number] XR CHEST 1 V 33837 HISTORY: SHORTNESS OF BREATH TECHNIQUE: AP chest x-ray COMPARISON: 10/15/19 FINDINGS: No airspace consolidation or pleural effusion. Cardio megaly. Mediastinal silhouette is unremarkable. Degenerative changes of th e spine and shoulders. IMPRESSION: No ra diographic evidence of acute cardiopulmonary process. LOCATION: [facility] at 1242 Reported and signed by: Sia Finney D.O. CC: Maia Irvin MD Technologist: Soha Johnson(R) Trnscrd Date/Time/By: 10/31/2019 (4325) : By: TannaLDP1 Orig Print D/ T: S: 10/31/2019 (1249) PAGE 1 Si gned Report Coronavirus 2019 nCoV Bedside 2019-10-31 12:39:00* Test Item Value Reference Range Interpretation Comments Coronavirus 2019 nCoV Bedside (test code = [id number]) Negative Is patient requiring admission or transfer? YIndication for rapid COVID-19 testi ng: High Clinical SuspicionBASIC METABOLIC [id number] 12:25:00* Test Item Value Reference Range Interpretation [...] code = CA) 9.4 mg/dL 8.5-10.1 N [id number] 12:25:00* Test Item Value Reference Range Interpretation Comments TROPONIN-I (test code = TROPI) <0.015 ng/mL 0-0.045 N CBC W/AUTO [id number] 12:11:00* Test Item Value Reference Range Interpretation [...] NRBC#) 0.00 K/mm3 0.0-0.1 N COMPREHENSIVE METABOLIC [id number] 07:10:00* Test Item Value Reference Range Interpretation [...] due to change in reagent. COMPREHENSIVE METABOLIC [id number] 06:57:00* Test Item Value Reference Range Interpretation [...] code = ALKP) IUnit/L 45-117 CBC W/AUTO [id number] 06:30:00* Test Item Value Reference Range Interpretation [...] REQUIRED (test code = MDIFF) NO Coronavirus 2018 nCoV [id number] 13:24:00* Test Item Value Reference Range Interpretation Comments Coronavirus 2019 nCoV Bedside (test code = COVNONPUIBED) Negative BASIC METABOLIC [id number] 07:25:00* Test Item Value Reference Range Interpretation [...] This LDL result is a direct measurement.========= [id number] 07:02:00* Test Item Value Reference Range Interpretation Comments TROPONIN-I (test code = TROPI) <0.015 ng/mL 0-0.045 N COMMENTS TO KOHINOOR OPERATOR: COLLECT 3 HOURS AFTER PREVIOUS SAMPLEBASIC METABOLIC [id number] 06:59:00* Test Item Value Reference Range Interpretation [...] code = LDL) mg/dL 100-129 CBC W/AUTO [id number] 06:21:00* Test Item Value Reference Range Interpretation [...] DIFF REQUIRED (test code = MDIFF) NO [id number] 03:52:00* Test Item Value Reference Range Interpretation Comments TROPONIN-I (test code = TROPI) <0.015 ng/mL 0-0.045 N COMMENTS TO KOHINOOR OPERATOR: COLLECT 3 HOURS AFTER PREVIOUS SAMPLEB-TYPE NATRIURETIC [id number] 21:07:00* Test Item Value Reference Range Interpretation Comments B-TYPE NATRIURETIC PEPTIDE (test code = BNP) 8.8 pgram/mL 0-100 N [id number] 20:41:00* Test Item Value Reference Range Interpretation Comments GLYCOSYLATED HEMOGLOBIN (HA1C) (test code = GLYHGB) 5.6 % HbA1 SUGGESTED DIAGNOSIS: HbA1C (%) Diabetic >6.4Prediabetes 5.7 - 6.4Normal <5.7 ESTIMATED AVERAGE GLUCOSE (test code = EAG) 114 MG/DL [id number] 20:30:00* Test Item Value Reference Range Interpretation Comments MAGNESIUM (test code = MAG) 2.2 mg/dL 1.8-2.4 N [id number] 20:30:00* Test Item Value Reference Range Interpretation Comments ALCOHOL (test code = ALC) 5 mg/dL 0.0-3.0 H -- INTERPRETIVE DATA NOTE: POSITIVE SCREENING RESULTS SHOULD BE CONSIDERED PRESUMPTIVE.WHEN COLLECTED FOR MEDICAL PURPOSES ONLY. SPECIMEN WILL NOTBE COLLECTED BY CHAIN OF CUSTODY.IF A CONFIRMATION OF POSITIVE RESULTS IS DESIRED, ACONFIRMATION TEST MUST BE REQUESTED BY THE PHYSICIAN AT ANADDITIONAL CHARGE TO THE PATIENT. [id number] 20:29:00* Test Item Value Reference Range Interpretation Comments MAGNESIUM (test code = MAG) 2.2 mg/dL 1.8-2.4 N [id number] 20:29:00* Test Item Value Reference Range Interpretation Comments ALCOHOL (test code = ALC) mg/dL 0-3 - CTA [id number] 19:08:00 Name: DIANELAVONNE BOSWELL [facility] : 1960 Age/S: 58 / M [address] Unit #: [id number] Loc: [place] [address] Phys: Bob Bradley DO Acct: [id number] Dis Date: Status: REG ER PHONE #: [phone] Exam Date: 10/15/20191899 FAX #: [phone] Reason: chest pain/lightheaded - evaluate aorta EXAMS: CPT CODE: [id number] CTA CHEST 04700 REASON FOR EXAM: chest pain/lightheaded - evaluate aorta EXAM ORDER DATE: 10/15/2019 5:31 PM Ordering: Bob Bradley DO Attending:Bob Bradley DO Location:[facility] PROCEDURE: - CTA CHEST FINDINGS: CT images [...] RT(R),(MR),(CT); CTDI: DLP: Trnscb Date/Time: 10/15/2019 (1907) Michael Orig Print D/T: S: 10/15/2019 (1910) PAGE 1 Signed Report BASIC METABOLIC PANEL 2019-10-15 18:28:00* Test Item Value Reference Range Interpretation [...] code = CA) 9.4 mg/dL 8.5-10.1 N [id number] 18:28:00* Test Item Value Reference Range Interpretation Comments TROPONIN-I (test code = TROPI) <0.015 ng/mL 0-0.045 N - XR CHEST 1 [id number] 18:24:00 FAX: Bob Bradley DO [place]: B St: REG Name: LAVONNE BAEZA [facility] : [birth year] Age/S: 58/M [address] Unit #: [id number] Loc: [place], [place] [address] Phys: Bob Bradley DO Acct: [id number] Dis Date: Status: REG ER PHONE #: [phone] Exam Date: 10/15/20191821 FAX #: [phone] Reason: CHEST PAIN EXAMS: CPT CODE: [id number] XR CHEST 1 V 86320 REASON FOR EXAM: CHEST KACIE N EXAM ORDER DATE: 10/15/2019 5:07 PM Ordering: Bob Bradley DO Attending:Bob Bradley DO Location:[facility] ID OCEDURE: - XR CHEST 1 V COMPARISON: FINDINGS: Port able AP frontal view of the chest obtained at 6:19 PM shows clear lungs wi thout evidence of consolidation. There is no evidence of effusion. The hea rt size is within normal limits. Pulmonary vasculatures are unremarkable. IMPRESSION: No active disease. Electronically Nadiya d by Benedict August on 10/15/2019 at 1824 Reported and sig tuan by: Castillo August M.D. CC: Bob Bradley DO Technologist: ZEYNEP SCHILLING Trnscrd Date/Time/By: 10/15/2019 (1823) : By: Michael Ayaan g Print D/T: S: 10/15/2019 (1826) PAGE 1 Signed Report BASIC METABOLIC PANEL 2019-10-15 18:20:00* Test Item Value Reference Range Interpretation [...] code = CA) 9.4 mg/dL 8.5-10.1 N [id number] 18:20:00* Test Item Value Reference Range Interpretation Comments TROPONIN-I (test code = TROPI) ng/mL 0-0.045 CBC W/O [id number] 18:14:00* Test Item Value Reference Range Interpretation [...] = MPV) 9.2 fL 6.7-11.0 N Urine [id number] 14:46:57* Test Item Value Reference Range Interpretation Comments Urine culture isolate (test code = 72544-6) Mixed sisi <=10-3 col/ cc Specimen InformationSpecimen Source: UrineSpecimen Site: Clean catch [facility] MethodistUrinalysis screen and microscopy, with reflex to culture 2019-08-25 11:59:15* Test Item Value Reference Range Interpretation Comments Specimen site (test code = 5529042) Clean catch Color, UA (test code = 5778-6) Yellow Appearance, UA (test code = 5767-9) Slightly-Cloudy Specific gravity, UA (test code = 5811-5) 1.019 1.001-1.035 pH, UA (test code = 5803-2) 7.0 5.0-8.5 Protein, UA (test code = 83523-4) Negative Negative Glucose, UA (test code = 45191-9) Negative Negative Ketones, UA (test code = 2514-8) Negative Negative Bilirubin, UA (test code = 5770-3) Negative Negative Blood, UA (test code = 5794-3) Negative Negative Nitrite, UA (test code = 5802-4) Negative Negative Urobilinogen, UA (test code = 17454-5) Negative <2.0 Leukocyte esterase, UA (test code = 5799-2) Negative Negative Epithelial cells, UA (test code = 5787-7) Many /HPF WBC, UA (test code = 5821-4) 7 0- 1 /HPF H RBC, UA (test code = 86338-1) 2 0- 5 /HPF Bacteria, UA (test code = 07656-1) None seen None seen Yeast, UA (test code = 26666-9) None seen Yeast with pseudohyphae, UA (test code = 74651-9) None seen Lab Interpretation (test code = 42175-7) Abnormal [facility] MethodistComprehensive metabolic [id number] 11:17:36* Test Item Value Reference Range Interpretation Comments Sodium (test code = 2951-2) 140 135- 150 mEq/L Potassium (test code = 2823-3) 4.9 3.5- 5.0 mEq/L Chloride (test code = 2075-0) 105 98- 112 mEq/L CO2 (test code = 2027-9) 23 mmol/L 24-31 L Anion gap (test code = 32391-9) 12@ANIO 7- 15 mEq/L BUN (test code = 3094-0) 14 mg/dL 7-18 Creatinine (test code = 2160-0) 1.00 mg/dL 0.7-1.2 Glucose (test code = 2345-7) 101 mg/dL 65-100 H Calcium (test code = 56492-1) 9.9 mg/dL 8.3-10.2 Protein (test code = 2885-2) 6.8 g/dL 6.3-8.3 Albumin (test code = 1751-7) 3.7 g/dL 3.5-5 A/G ratio (test code = 1759-0) 1.2 0.7-3.8 Alkaline phosphatase (test code = 6768-6) 70 U/L 0-129 AST (test code = 1920-8) 21 U/L 10-50 ALT (test code = 1742-6) 21 U/L 5-50 Total bilirubin (test code = 1974-2) <0.3 0.2-1.2 Lab Interpretation (test code = 58900-0) Abnormal Chun MethodistEstimated [id number] 11:17:36* Test Item Value Reference Range Interpretation Comments Estimated GFR (test code = 5488) 83 mL/min/1.73 m2 Catergory Units InterpretationG1 >=90 Normal or highG2 60-89 Mildly buqcmnihxR5c 45-59 Mildly to moderately qvsahhdxzJ1q 30-44 Moderately to severely decreasedG4 15-29 Severely decreasedG5 <15 Kidney failureThe eGFR was calculated using the Chronic Kidney Disease Epidemiology Collaboration (CKD-EPI) equation. Interpretation is based on recommendations of the National Kidney Foundation-Kidney Disease Outcomes Quality Initiative (NKF-KDOQI) published in 2014. [facility] MethodistCBC with platelet and eggyzwdubphd1311-15-65 11:02:02* Test Item Value Reference Range Interpretation Comments WBC (test code = 27066-2) 6.3 4.2- 11.0 k/uL RBC (test code = 13539-5) 4.63 m/uL 4.04-5.86 HGB (test code = 718-7) 14.0 g/dL 13-17.3 HCT (test code = 4544-3) 42.5 % 34-45 MCV (test code = 787-2) 91.8 fL 80-98 MCH (test code = 785-6) 30.2 pg 27-34 MCHC (test code = 786-4) 32.9 g/dL 31.5-36.5 RDW - SD (test code = 12944-5) 47.5 fL 37-51 MPV (test code = 57199-9) 9.3 fL 7.4-10.4 Platelet count (test code = 12351-5) 192 150- 400 k/uL Nucleated RBC (test code = 17129-3) 0.00 /100 WBC Neutrophils (test code = 36681-8) 51.3 % 36-66 Lymphocytes (test code = 97917-1) 36.4 % 24-44 Monocytes (test code = 42378-2) 9.2 % 0-6 H Eosinophils (test code = 77891-1) 1.7 % 0-6 Basophils (test code = 58660-1) 0.8 % 0-1.2 Immature granulocytes (test code = 39938-9) 0.6 % 0-1 Lab Interpretation (test code = 01392-5) Abnormal [facility] Muslim- XR CHEST 1 [id number] 07:46:00 FAX: Audrey Perez [phone] [place]: St: REG Name: LAVONNE BAEZA [facility] : [birth year] Age/S: 58/M [address] Unit #: [id number] Loc: [place] [address] Phys: Audrey Perez CONTRACT ASSOCIATE MANAGER Acct: [id number] Dis Date: Status: REG ER PHONE #: [phone] Exam Date: 07/29/2019730 FAX #: [phone] Reason: cough, fever, sob EXAMS: CPT CODE: [id number] XR CHEST 1 V 81888 EXAM: XR Chest 1 View INDICATION: cough, fever, sob LOCATION CODE: H 50 COMPARISON: Chest radiograph dated 07/16/2019 TECHNIQUE: Frontal vi ew of the chest was obtained. FINDINGS: The lungs a re clear. There is no pleural effusion or pneumothorax. The cardiomedias tinal silhouette is unchanged. No acute osseous abnormality is identified . IMPRESSION: No acute cardiopulmonary abnormality. at 0746 Reported and signed by: VALENTINA WAGNER MD CC: Audrey Perez CONTRACT ASSOCIATE MANAGER Technologist: LEIDY GRANADOS RT (R) Trnscrd Date/Time/By: 0 (0746) : By: [email or web address] PAGE 1 Signed Report FAX: Audrey Perez [phone] [place]: St: REG Name: DIANELAVONNE BOSWELL [facility] : 1960 Age/S: 58/M [address] Unit #: [id number] Loc: [place] [address] Phys: Audrey Perez NP A cct: [id number] Dis Date: Status: REG ER PHONE #: [phone] Exam Date: 07/29/2019730 FAX #: [phone] Reason: cough, fever, sob EXAMS: CPT CODE: [id number] XR CHEST 1 V 37838 < Continued> Orig Print D/T: S: 07/29/2019 (0749) PAGE 2 Signed Report B-TYPE NATRIURETIC [id number] 16:31:00* Test Item Value Reference Range Interpretation Comments B-TYPE NATRIURETIC PEPTIDE (test code = BNP) 69.62 pgram/mL 0-100 N BASIC METABOLIC [id number] 16:27:00* Test Item Value Reference Range Interpretation [...] CA) 9.7 mg/dL 8.5-10.1 N HEPATIC FUNCTION [id number] 16:27:00* Test Item Value Reference Range Interpretation [...] reference range due to change in reagent. [id number] 16:27:00* Test Item Value Reference Range Interpretation Comments TROPONIN-I (test code = TROPI) <0.015 ng/mL 0-0.045 N BASIC METABOLIC [id number] 16:12:00* Test Item Value Reference Range Interpretation [...] code = CA) mg/dL 8.5-10.1 HEPATIC FUNCTION [id number] 16:12:00* Test Item Value Reference Range Interpretation [...] TOTAL (test code = ALKP) IUnit/L 45-117 [id number] 16:12:00* Test Item Value Reference Range Interpretation Comments TROPONIN-I (test code = TROPI) ng/mL 0-0.045 CBC W/O [id number] 15:59:00* Test Item Value Reference Range Interpretation [...] MPV) 9.5 fL 6.7-11.0 N CBC W/O [id number] 15:57:00* Test Item Value Reference Range Interpretation [...] MPV) fL 6.7-11.0 - XR CHEST 1 [id number] 14:10:00 FAX: Aram Cooney MD [place]: B St: PRE Name: LAVONNE BAEZA [facility] : [birth year] Age/S: 58/M [address] [facility] Unit #: [id number] Loc: [place] [address] Phys: Aram Cooney MD Acct: [id number] Dis Date: Status: PRE ER PHONE #: [phone] Exam Date: 07/16/2019 1359 FAX #: [phone] Reason: Shortness of Breath EXAMS: CPT CODE: [id number] XR CHEST 1 V 18099 REASON FOR EXAM: Shortness of Breath Exam Order Date: 07/16/2019 1:40 PM Singhi alfredo Mcmullen: Aram Cooney MD PROCEDURE: - XR CHEST 1 V COMPARISON: Chest x-ray January 25, 2019 FINDINGS: T he lungs are clear. There is no pleural effusion or pneumothorax. Pulmona ry vascularity is within normal limits. Cardiomediastinal silhouet te is normal in size for technique. The mediastinal contours are within no rmal limits. Musculoskeletal structures are within normal limits. Prior cholecystectomy. IMPRESSION: No acute cardiopulmonary process. Location: [facility] E lectronically Signed by Joe Vu MD on 07/16/2019 at 1410 Reported and signed by: Joe Vu MD CC: Aram Cooney MD Technologist: Sahara Lino RT(R) Trnscrd Date/Time/By: 07/16/2019 (1410) : By: [email or web address] 1 Orig Print D/T: S: 07/16/2019 (5453) PAGE [address] Renal Stone [id number] 19:20:55Hm Interface, Radiology Results - 06/27/2019 7:24 [...] and no stones are seen in the bladder .2.Significant distention of the stomach containing debris-like material. Possib ility of gastric outlet obstruction should be considered and correlated.3.No sma ll bowel obstruction. Evidence for prior small bowel surgery.4.Chronic pelvic [place] abnormalities and postoperative changes with diastases of [...] MRI would be useful for further ev aluation.HMH-9KQ63398TZGxvoywu MethodistLipase fvygz9065-13-34 18:08:05* Test Item Value Reference Range Interpretation Comments Lipase (test code = 3040-3) 61 U/L 13-60 H Lab Interpretation (test code = 25580-0) Abnormal Chun MethodistTHYROID STIMULATING [id number] 08:40:00* Test Item Value Reference Range Interpretation Comments THYROID STIMULATING HORMONE (test code = TSH) 1.790 uIU/mL 0.36-3.7 4 N TSH REFERENCE RANGES: EUTHYROID: 0.35 - 4.3 mIU/mL HYPO : > 5.5 mIU/mL HYPER : < 0.35 mIU/mL URINALYSIS [id number] 01:17:00* Test Item Value Reference Range Interpretation Comments UA COLOR (test code = COLU) [place] YELLOW UA APPEARANCE (test code = APPU) [...] MANY #/LPF FEW A Urine Source? CatheterURINALYSIS [id number] 01:15:00* Test Item Value Reference Range Interpretation Comments UA COLOR (test code = COLU) [place] YELLOW UA APPEARANCE (test code = APPU) [...] per HPF NONE Urine Source? CatheterBASIC METABOLIC [id number] 22:33:00* Test Item Value Reference Range Interpretation [...] CA) 9.0 mg/dL 8.5-10.1 N BASIC METABOLIC [id number] 22:28:00* Test Item Value Reference Range Interpretation [...] code = CA) mg/dL 8.5-10.1 CBC W/AUTO [id number] 22:09:00* Test Item Value Reference Range Interpretation [...] code = BA#) K/mm3 0.0-0.2 CBC W/AUTO [id number] 22:09:00* Test Item Value Reference Range Interpretation [...] MDIFF) NO - CT ABD PELVIS W/O [id number] 21:48:00 Name: LAVONNE CONTRERAS [facility] : 1960 Age/S: 58 / M [address] [facility] Unit #: [id number] Loc: [place] [address] Phys: Tamara Castro MD Acct: [id number] Dis Date: Status: REG ER PHONE #: [phone] Exam Date: 01/28/2019 210 FAX #: [phone] Reason: ttp lower abdomen EXAMS: CPT CODE: [id number] CT ABD PELVIS W/O CONT 75337 EXAM: CT of the abdomen and pelvis without contrast; INFORMATION: Suprapubic catheter partially dislodged; surrounding redness; graft technique: CT dose reduction protocol; 5 mm cuts through the abdomen and pelvis without contrast. IMPRESSION: 1. No significant change compared with the recent study from January 24, 2019; suprapubic pigtail cystostomy catheter appears well- positioned. It is still within the urinary bladder. 2. Again seen is an oval-shaped fluid collection with moderately thick wall in the peroneal region. This is suspicious for an abscess. 3. Penile implant. 3. Overall, no significant change. at 214 Reported and signed by: Mark Pires M.D. CC: Tamara Castro MD Technologist:Marilin Olmedo RT(R); TONY Pak CTDI: DLP: Trnscb Date/Time: 01/28/2019 (2147) [email or web address] Orig Print D/T: S: 01/28/2019 (2150) PAGE 1 Signed Report - DUP AB/PEL/SC/[id number] 14:14:00 [place]: St: REG Name: LAVONNE BAEZA [facility] : [birth year] Age/S: 58/M [address] Unit #: [id number] Loc: [place] [address] Phys: Rigo Ayoub MD Acct: [id number] Dis Date: Status: REG ER PHONE #: [phone] Exam Date: 01/25/2019 7218 FAX #: [phone] Reason: SEE REASON ON US SCROTUM AND CNT EXAMS: CPT CODE: [id number] DUP AB/PEL/SC/LTD 37697 EXAM: - US SCROTUM AND CNTS, - D UP AB/PEL/SC/LTD HISTORY: pain Location code:C3 COMPARISON: None TECHNIQUE: Real time sonography was d one with the variable megahertz high frequency linear [...] [facility] Trnscrd Date/Time/By: 01/25/2019 (1414) : By: [email or web address] PAG E 1 Signed Report [place]: St: REG Name: Opal CONTRERAS [facility] : 1960 Age/ S: 58/M [address] Unit #: [id number] Loc: [place] [address] Phys: Rigo Ayoub MD Acct: [id number] Dis Date: Status: REG ER PHONE #: [phone] Exam Date: 01/25/2019 6731 FAX #: [phone] Reason: SEE REASON ON US SCROTUM AND CNT EXAMS: CPT CODE: [id number] DUP AB/PEL/SC/LTD 96349 <Continued> Orig Print D/T: S: 01/25/2019 (2052) PAGE 2 Signed Report - US SCROTUM AND [id number] 14:14:00 [place]: St: REG Name: LAVONNE BAEZA [facility] : [birth year] Age/S: 58/M [address] Unit #: [id number] Loc: [place] [address] Phys: Rigo Ayoub MD Acct: [id number] Dis Date: Status: REG ER PHONE #: [phone] Exam Date: 01/25/2019 4440 FAX #: [phone] Reason: pain EXAMS: CPT CODE: [id number] US SCROTUM AND CNTS 86602 EXAM: - US SCROTUM AND CNTS, - D UP AB/PEL/SC/LTD HISTORY: pain Location code:C3 COMPARISON: None TECHNIQUE: Real time sonography was d one with the variable megahertz high frequency linear [...] [facility] Trnscrd Date/Time/By: 01/25/2019 (4272) : By: [email or web address] PAG E 1 Signed Report [place]: St: REG Name: DIANEOpal [facility] : 1960 Age/ S: 58/M [address] Unit #: [id number] Loc: [place] [address] Phys: Rigo Ayoub MD Acct: [id number] Dis Date: Status: REG ER PHONE #: [phone] Exam Date: 01/25/2019 1330 FAX #: [phone] Reason: pain EXAMS: CPT CODE: [id number] US SCROTUM AND CNTS 19416 <Continued> Orig Print D/T: S: 01/25/2019 (3859) PAGE 2 Signed Report PROCALCITONIN (PCT)2019-01-25 12:11:00* Test Item Value Reference Range Interpretation [...] between 0.5-2.0 NG/ML are obtained. BASIC METABOLIC [id number] 11:39:00* Test Item Value Reference Range Interpretation [...] CA) 9.2 mg/dL 8.4-10.2 N LIVER FUNCTION [id number] 11:39:00* Test Item Value Reference Range Interpretation [...] code = ALKP) 129 U/L 38-126 H [id number] 11:39:00* Test Item Value Reference Range Interpretation Comments LIPASE (test code = LIP) 272 U/L 23-300 N TROPONIN I [id number] 11:38:00* Test Item Value Reference Range Interpretation [...] valid only if similarmethodology is used. PROTHROMBIN [id number] 11:34:00* Test Item Value Reference Range Interpretation [...] with Food and Drug Administrationrecommendations. THROMBOPLASTIN TIME [id number] 11:34:00* Test Item Value Reference Range Interpretation Comments THROMBOPLASTIN TIME PARTIAL (test code = PTT) 29.4 SECONDS 23.4-37. 0 N Therapeutic Range for Heparin EFFECTIVE 11/12/12 Heparin IU/mL aPTT Seconds0.3 64.30.7 88.8 UA RFLX MICR CULT IF [id number] 11:30:00* Test Item Value Reference Range Interpretation [...] for culture: Temperature > 100.4 FCBC W/AUTO [id number] 11:25:00* Test Item Value Reference Range Interpretation [...] 0.08 x10 3/uL 0.0-0.1 N LACTIC ACID [id number] 11:22:00* Test Item Value Reference Range Interpretation Comments LACTIC ACID POC (test code = LACTP) 1.71 mmol/L 0.7-2.0 N - XR CHEST 1 [id number] 09:48:00 [place]: St: REG Name: LAVONNE BAEZA [facility] [place] : [birth year] Age/S: 58/M [address] Unit #: [id number] Loc: [place] [address] Phys: Rigo Ayoub MD Acct: [id number] Dis Date: Status: REG ER PHONE #: [phone] Exam Date: 01/25/2019935 FAX #: [phone] Reason: CODE SEPSIS EXAMS: CPT CODE: [id number] XR CHEST 1 V 25158 EXAM: - XR CHEST 1 V Location [...] Liana Garcia MD CC: Technologist: DEBORAH Quiroz nscrd Date/Time/By: 01/25/2019 (0948) : By: [email or web address] PAGE 1 Signed Report [place]: St: REG Name: LAVONNE CONTRERAS [facility] [place] : 1960 Age/S: 58/M [address] Unit #: [id number] Loc: [place] [address] Phys: Rigo Ayoub MD Acct: [id number] Dis Date: Status: R EG ER PHONE #: [phone] Exam Date: 0 01/25/2019935 FAX #: [phone] Reason: CODE SEPSIS EXAMS: CPT CODE: [id number] XR CHEST 1 V 81808 <Continued> Orig Print D/T: S: 01/25/2019 (09) PAGE 2 Signed Report PROCALCITONIN (PCT)2019-01-24 22:20:00* [...] if anyconcentrations between 0.5-2.0 NG/ML are obtained. [id number] 22:09:00* Test Item Value Reference Range Interpretation Comments D-DIMER (test code = DDIMER) 1218 ng/mLFEU 0-500 HH Critical Value reported toFirst Name:[id number] Last Name:RESULTS READ BACK AND VERIFIEDby SARAY, on 01/24/19, @ 9672.THE DDIMER METHOD IS USED IN THE EXCLUSION OF DEEP VEINTHROMBOSIS AND/OR PULMONARY EMBOLISM AND THE CLINICAL CUT-OFF VALUE FOR EXCLUSION (500 NG/ML FEU) OF THESE CONDITIONSIS VALIDATED BY THE WAX POURER OF THE METHOD. A NEGATIVE DDIMER RESULT WHEN COMBINED WITH A CLINICALASSESSMENT OF LOW PRETEST PROBABILITY HAS BEEN SHOWN TO HAVEA HIGH NEGATIVE PREDICTIVE VALUE OF DVT OR PE. D-DIMER VALUES >500 ng/mL ARE NOT DIAGNOSTIC FOR DVT,PEOR DIC WITHOUT OTHER CONFIRMATORY TESTS AND APPROPRIATECLINICAL EVALUATIONS. [id number] 22:01:00* Test Item Value Reference Range Interpretation Comments LIPASE (test code = LIP) 196 U/L 23-300 N LACTIC ACID [id number] 21:57:00* Test Item Value Reference Range Interpretation Comments LACTIC ACID POC (test code = LACTP) 1.18 mmol/L 0.7-2.0 N - CT ABD PELVIS W/O [id number] 21:54:00 [place]: St: REG Name: LAVONNE HEALY [facility] : 2 Age/S: 58/M [address] Unit: [id number] Loc: [place] [address] Phys: Blade Howard MD Acct: [id number] Dis Date: Status: REG ER PHONE #: Exam Date: 01/24/2019 2138 FAX #: [phone] Reason: ABDOMINAL PAIN POST SUPRAPUBIC CATHETER EXAMS: CPT CODE: [id number] CT ABD PELVIS W/O CONT [address]10 CT Abdomen and Pelvis without cont rast. Location: Clinical indication: 58-year-old with abdominal pain post suprapubic catheter. Comparison: No ne Technique: Computed axial images were obtained from the diaphra gms through the pubic symphysis without IV contrast. [...] i n the right lower quadrant. Pelvis: [place] for penile prosthese s are present in [...] 13, 2018 exam. Impression: 1. Urinary bladder i s decompressed. Suprapubic catheter appears to be well-positioned withi n the lumen. 2. Indeterminate smoothly marginated 3.3 [...] entirely excluded based on this exam. Consider follow -up with elective MRI. PAGE 1 Signed Repor t (CONTINUED) [place]: St: REG Name: LAVONNE CONTRERAS [facility] : 1960 Age/S: 58/M [address] Unit: [id number] Loc: [place] [address] Phys: Blade Howard MD Acct: [id number] Dis Date: Status: REG ER PHONE #: [phone] Exam Date: 01/24/20192134 FAX #: [phone] Reason: ABDOMINAL PAIN POST SUPRAPUBIC CATHETER EXAMS: CPT CODE: [id number] CT ABD PELVIS W/O CONT 34556 < Continued> at 2154 Reported and signed by: Tony Forbes MD CC: Technologist: JOSE LOOMIS Trnscrd Dt/Tm: 01/24/2019 (2153) [email or web address] Orig Print D/T: S: 01/24/2019 (7 PAGE 2 Signed Report URINALYSIS [id number] 21:17:00* Test Item Value Reference Range Interpretation [...] YEASTUBD) 1+ /HPF None A BASIC METABOLIC [id number] 21:13:00* Test Item Value Reference Range Interpretation [...] CA) 9.4 mg/dL 8.4-10.2 N CBC W/AUTO [id number] 20:57:00* Test Item Value Reference Range Interpretation [...] 0.10 x10 3/uL 0.0-0.1 N CBC W/MANUAL [id number] 13:41:00* Test Item Value Reference Range Interpretation [...] (test code = PLTMORPH) NORMAL BASIC METABOLIC [id number] 11:05:00* Test Item Value Reference Range Interpretation [...] CA) 8.7 mg/dL 8.5-10.1 N BASIC METABOLIC [id number] 10:42:00* Test Item Value Reference Range Interpretation [...] code = CA) mg/dL 8.5-10.1 CBC W/MANUAL [id number] 10:11:00* Test Item Value Reference Range Interpretation [...] MORPHOLOGY (test code = PLTMORPH) CBC W/MANUAL [id number] 10:11:00* Test Item Value Reference Range Interpretation [...] MORPHOLOGY (test code = PLTMORPH) CBC W/MANUAL [id number] 10:11:00* Test Item Value Reference Range Interpretation [...] MORPHOLOGY (test code = PLTMORPH) CBC W/MANUAL [id number] 10:10:00* Test Item Value Reference Range Interpretation [...] MORPHOLOGY (test code = PLTMORPH) CBC W/MANUAL [id number] 10:10:00* Test Item Value Reference Range Interpretation [...] MORPHOLOGY (test code = PLTMORPH) BASIC METABOLIC [id number] 08:57:00* Test Item Value Reference Range Interpretation [...] CA) 7.9 mg/dL 8.5-10.1 L BASIC METABOLIC [id number] 08:49:00* Test Item Value Reference Range Interpretation [...] (test code = CA) mg/dL 8.5-10.1 VANCOMYCIN [id number] 22:10:00* Test Item Value Reference Range Interpretation Comments VANCOMYCIN TROUGH (test code = VANCT) 16.2 ug/mL 10-20 N BASIC METABOLIC [id number] 19:38:00* Test Item Value Reference Range Interpretation [...] CA) 8.5 mg/dL 8.5-10.1 N BASIC METABOLIC [id number] 19:31:00* Test Item Value Reference Range Interpretation [...] code = CA) mg/dL 8.5-10.1 BASIC METABOLIC [id number] 05:50:00* Test Item Value Reference Range Interpretation [...] CA) 8.1 mg/dL 8.5-10.1 L BASIC METABOLIC [id number] 05:39:00* Test Item Value Reference Range Interpretation [...] code = CA) mg/dL 8.5-10.1 CBC W/O [id number] 05:34:00* Test Item Value Reference Range Interpretation [...] = MPV) 9.5 fL 6.7-11.0 N VANCOMYCIN [id number] 17:36:00* Test Item Value Reference Range Interpretation Comments VANCOMYCIN TROUGH (test code = VANCT) 22.6 ug/mL 10-20 H BASIC METABOLIC [id number] 10:42:00* Test Item Value Reference Range Interpretation [...] CA) 8.5 mg/dL 8.5-10.1 N BASIC METABOLIC [id number] 10:35:00* Test Item Value Reference Range Interpretation [...] mg/dL 8.5-10.1 - XR ABDOMEN AP 1 [id number] 10:17:00 FAX: Wili Eckert MD [phone] [place]: St: [facility] FAX: Amarjit Sorto MD [phone] Name: LAVONNE CONTRERAS [facility] : 1960 Age/S: 58/M [address] [facility] Unit #: [id number] [place]: [place] [address] Phys: Amarjit Don MD Acct: [id number] Dis Date: Status: ADM IN PHONE #: [phone] Exam Date: 01/16/2019 [facility] FAX #: [phone] Reason: ABCESS IN TESTICLE, P OSSIBLE INFECTION OF IMPLA EXAMS: CPT CODE: [id number] XR ABDOMEN AP 1 V 21118 HISTORY: Abscess and testicle. COMPARISON: CT scan [...] obstruction. IMPRESSION: No obvious abscess collection within t he scrotal sac. Correlate with repeat ultrasound for abscess evaluation. No obvious abscess visible on the CT scan. Perineal fluid collection in the midline as is stable since October 2018 of unclear significance. at 1017 Reported and signed by: Jorge Almeida M.D. CC: Wili Eckert MD; Amarjit Don MD Technologist: Christy Baeza RT(R) Trnscrd Date/Time/By: 01/17/20 19 (1017) : By: [email or web address] Orig Print D/T: S: 01/16/2019 (3750) PAGE 1 Signed Report VANCOMYCIN [id number] 09:31:00* Test Item Value Reference Range Interpretation Comments VANCOMYCIN TROUGH (test code = VANCT) 8.7 ug/mL 10-20 L - USG NDL PLACEMENT (Biopsy/Asp)2019-01-16 09:04:00 Name: LAVONNE CONTRERAS [facility] : 1960 Age/S: 58 / M [address] [facility] Unit #: [id number] Loc: [facility] [place] [address] Phys: Wili Eckert MD Acct: [id number] Dis Date: Status: ADM IN PHONE #: [phone] Exam Date: 01/15/2019 1658 FAX #: [phone] Reason: EXAMS: CPT CODE: [id number] USG NDL PLACEMENT (Biopsy/Asp) 87517 Fluoro Time: DAP (Gy m2): Air Kerma [...] tract was dilated to accept a 14 Pashto pigtail tube. The tube was connected to a Rosales back and secured to the subcutaneous tissue with #2 silk sutures MEDICATIONS: None COMPLICATIONS: None Blood loss: Less than 5 mL Fluoro scopic time: 40 seconds Radiation dose: 11.5 mGy IMPRESSIO N: Technically successful percutaneous placement of suprapubic catheter at 0904 Reported and signed by: Castillo August M.D. CC: Wiliam Eckert MD Technologist: Franchesca Colby Trnmib Date/Time: 01/16/2019 (903) tCHERYVTL Orig Print D/T: S: 01/16/2019 (906) PAGE 1 Signed Report - XR FLUORO NDL 2019-01-16 09:04:00 Name: LAVONNE CONTRERAS [facility] : 1960 Age/S: 58 / M [address] [facility] Unit #: [id number] Loc: [place] [address] Phys: Wili Eckert MD Acct: [id number] Dis Date: Status: ADM IN PHONE #: [phone] Exam Date: 01/15/2019 1658 FAX #: [phone] Reason: URINARY RETENTION EXAMS: CPT CODE: [id number] XR FLUORO NDL 64705 Fluoro Time: 40 DAP (Gy m2): 4.438 [...] tract was dilated to accept a 14 Pashto pigtail tube. The tube was connected to a Rosales back and secured to the subcutaneous tissue with #2 silk sutures MEDICATIONS: None COMPLICATIONS: None Blood loss: Less than 5 mL Fluoroscopic time: 40 seconds Radiation dose: 11.5 mGy IMPRESSION: Technically successful percutaneous placement of suprapubic catheter at 0904 Reported and signed by: Castillo August M.D. CC: Wili Eckert MD Technologist: Franchesca Colby [facility] Date/Time: 01/16/2019 (903) TannaVTL Orig Print D/T: S: 01/16/2019 (906) PAGE 1 Signed Report BASIC METABOLIC [id number] 08:46:00* Test Item Value Reference Range Interpretation Comments SODIUM (test code = NA) TEST NOT PERFORMED mmol/L 136-145 N Previously reported result: 139 mmol/LEdited by: EDGARD on 01/16/19:31609201/16/19 0844: NA previously reported as: 139 mmol/L POTASSIUM (test code = K) TEST NOT PERFORMED mmol/L 3.5-5.1 N Previously reported result: 4.6 mmol/LEdited by: EDGARD on 01/16/19:12361901/16/19 0845: K previously reported as: 4.6 mmol/L CHLORIDE (test code = CL) TEST NOT PERFORMED mmol/L 98-107 N Previously reported result: 106.0 mmol/LEdited by: EDGARD on 01/16/19:38147501/16/19 0845: CL previously reported as: 106.0 mmol/L [...] TEST NOT PERFORMED mg/dL 8.5-10.1 BASIC METABOLIC [id number] 08:41:00* Test Item Value Reference Range Interpretation [...] code = CA) mg/dL 8.5-10.1 CBC W/AUTO [id number] 07:34:00* Test Item Value Reference Range Interpretation [...] REQUIRED (test code = MDIFF) NO PROTHROMBIN [id number] 13:44:00* Test Item Value Reference Range Interpretation [...] (2.5-3.5) IS PATIENT ON ANTICOAGULANTS? NCOMMENTS TO KOHINOOR OPERATOR: NEED STAT PLEASE PT FOR SURGERY A.S.A.PTHROMBOPLASTIN TIME [id number] 13:44:00* Test Item Value Reference Range Interpretation Comments THROMBOPLASTIN TIME PARTIAL (test code = PTT) 29.9 seconds 25.0-36. 5 N IS PATIENT ON ANTICOAGULANTS? NCOMMENTS TO KOHINOOR OPERATOR: NEED STAT PLEASE PT FOR SURGERY A.S.A.P- US PELVIS LTD OR [id number] 13:09:00 Name: LAVONNE CONTRERAS [facility] : 1960 Age/S: 58 / M [address] [facility] Unit #: [id number] [place] [address] Phys: Castillo August MD Acct: [id number] Dis Date: Status: ADM IN PHONE #: [phone] Exam Date: 01/15/2019 1236 FAX #: [phone] Reason: SCAN BLADDER PRIOR FOR SUPRA PUBIC CATHETER AUGUSTUS EXAMS: CPT CODE: [id number] US PELVIS LTD OR FU 37147 REASON FOR EXAM: SCAN BLADDER PRIOR FOR SUPRA PUBIC CATHETER PLACEMENT EXAM ORDER DATE: 01/15/2019 11:25 AM Attending MTatyana: Castillo August MD PROCEDURE: - US PELVIS LTD OR FU FINDINGS: Limited focal ultrasound performed for assessment of the urinary bladder prior to suprapubic catheter placement. A mildly enlarged urinary bladder noted with bladder volume of 392 cc IMPRESSION: Mildly enlarged urinary bladder with prevoid volume of 392 cc at 1309 Reported and signed by: aCstillo August M.D. CC: Wili Eckert MD Technologist: CAROLINE WYNN RT(R),[facility] Date/Time: 01/15/2019 (4286) t.SDR.VTL Orig Print D/T: S: 01/15/2019 (0112) Probe: PAGE 1 Signed Report BASIC METABOLIC [id number] 03:50:00* Test Item Value Reference Range Interpretation [...] CA) 8.7 mg/dL 8.5-10.1 N COMPREHENSIVE METABOLIC [id number] 10:05:00* Test Item Value Reference Range Interpretation [...] due to change in reagent. COMPREHENSIVE METABOLIC [id number] 09:58:00* Test Item Value Reference Range Interpretation [...] TOTAL (test code = ALKP) IUnit/L 45-117 [id number] 08:18:00* Test Item Value Reference Range Interpretation Comments GLYCOSYLATED HEMOGLOBIN (HA1C) (test code = GLYHGB) 5.9 % HbA1 4. 8-6.0 N ESTIMATED AVERAGE GLUCOSE (test code = EAG) 123 MG/DL CBC W/O [id number] 08:10:00* Test Item Value Reference Range Interpretation [...] MPV) 9.5 fL 6.7-11.0 N CBC W/O [id number] 08:09:00* Test Item Value Reference Range Interpretation [...] MPV) fL 6.7-11.0 - CT ABD PELVIS W/[id number] 18:28:00 Name: LAVONNE CONTRERAS [facility] : 1960 Age/S: 58 / M [address] [facility] [id number] Loc: [place] [address] Phys: Jeremy Vanegas CONTRACT ASSOCIATE MANAGER Acct: [id number] Dis Date: Status: ADM IN PHONE #: [phone] Exam Date: 01/13/2019 171 FAX #: [phone] Reason: TESTICLE PAIN-POSS HERNIA EXAMS: CPT CODE: [id number] CT ABD PELVIS W/CONT 19275 HISTORY: Testicular pain and possible hernia. COMPARISON: [...] normal. Kidneys are free from hydroureteronephrosis. Homogeneous enhan cement. Bilateral excretion is noted. Subcentimeter low-attenuation lesi on in the left lateral interpolar region is too small to characterize. No pathologic adenopathy. Retroaortic left renal vein. Well-o pacified abdominal and pelvic vasculature. No bowel obstruction or colitis or diverticulitis or enteritis. Constipation. CT P JOSE M: Appendix is now visible with certainty but no inflammation. Postop changes within the proximal right colon and cecum with surgical sutures. Urinary bladder wall is mildly thickened could resul t from underdistention. The nondependent wall measured 7 mm. Correlate w ith urinalysis. The prostate measured 4 cm. Penile implant with re servoir noted in the left inguinal region and anterior right subcutaneous tissues. Subcutaneous tissues demonstrating perineal fluid collect ion in the midline measuring 3.4 cm with average Hounsfield unit measureme nt ranging up to 16 posterior to the testicles and scrotal sac. This is PAGE 1 Signed Report (CONTINUED) [facility] 1960 Age/S: 58 / M [address] [facility] Unit #: [id number] Loc: [place] [address] Phys: Grant Vanegas CONTRACT ASSOCIATE MANAGER Acct: [id number] Dis Date: Status: ADM IN PHONE #: Exam Date: 01/13/2019 1719 FAX #: Reason: TESTICLE PAIN-POSS HERNIA EXAMS: CPT CODE: [id number] CT ABD PELVIS W /CONT 52251 <Continued> stable going back to examination of [...] Jorge Almeida M.D. CC: Jeremy Vanegas NP Technologist:TONY PANIAGUA, RT(R) CT CTDI: DLP: Trnscb Date/Time: 01/13/2019 (1827) t.ALTAFR.TH4 Orig Print D/T: S: 01/13/2019 (183) PAGE 2 Signed Report LACTIC [id number] 17:40:00* Test Item Value Reference Range Interpretation Comments LACTIC ACID (test code = LACT) 1.1 mmol/L 0.4-1.9 N - US SCROTUM AND [id number] 16:24:00 [facility] 1960 [facility]S: 58 / M [address] Unit #: [id number] Loc: [place] [address] Phys: Jeremy Vanegas CONTRACT ASSOCIATE MANAGER Acct: [id number] Dis Date: Status: REG ER PHONE #: [phone] Exam Date: 01/13/2019 1546 FAX #: [phone] Reason: TESTICLE PAIN EXAMS: CPT CODE: [id number] US SCROTUM AND CNTS 83741 REASON FOR EXAM: PELVIC PAIN EXAM ORDER DATE: 01/13/2019 3:04 PM Attending MTatyana: Jeremy Vanegas NP PROCEDURE: - DUP AB/PEL/SC [...] 1 Signed Report (CONTINUED) Name: LAVONNE CONTRERAS [facility] : 1960 Age/S: 58 / M [address] Unit #: [id number] Loc: [place] [address] Phys: Jeremy Vanegas CONTRACT ASSOCIATE MANAGER Acct: [id number] Dis Date: Status: REG ER PHONE #: [phone] Exam Date: 01/13/2019 1546 FAX #: [phone] Reason: TESTICLE PAIN EXAMS: CPT CODE: [id number] US SCROTUM AND CNTS 58777 <Continued> IMPRESSION: Findings of left scrotal wall abscess and left sided epididymitis. The left testicle is sonographically unremarkable. Penile implant. at 1624 Reported and signed by: Joe Vu MD CC: Jeremy Vanegas NP Technologist: Romy Chowdary RT(S), RDMS Trnmib Date/Time: 01/13/2019 (1623) t.ALTAFR.RR31 Orig Print D/T: S: 01/13/2019 (1712) Probe: PAGE 2 Signed Report - DUP AB/PEL/SC [id number] 16:24:00 Name: LAVONNE CONTRERAS [facility] : 1960 Age/S: 58 / M [address] [facility] Unit #: [id number] Loc: [place], [place] [address] Phys: Jermey Vanegas NP Acct: [id number] Dis Date: Status: REG ER PHONE #: [phone] Exam Date: 01/13/2019 1546 FAX #: [phone] Reason: PELVIC PAIN EXAMS: CPT CODE: [id number] DUP AB/PEL/SC COMP 80222 REASON FOR EXAM: PELVIC PAIN EXAM ORDER [...] 1 Signed Report (CONTINUED) Name: LAVONNE CONTRERAS : 1960 Age/S: 58 / M [address] [facility] Unit #: [id number] Loc: [place] [address] Phys: Jeremy Vanegas CONTRACT ASSOCIATE MANAGER Acct: [id number] Dis Date: Status: REG ER PHONE #: [phone] Exam Date: 01/13/2019 1546 FAX #: [phone] Reason: PELVIC PAIN EXAMS: CPT CODE: [id number] DUP AB/PEL/SC COMP 35464 <Continued> IMPRESSION: Findings of left scrotal wall abscess and left sided epididymitis. The left testicle is sonographically unremarkable. Penile implant. at 1624 Reported and signed by: Joe Vu MD CC: Jeremy Vanegas NP Technologist: Romy Chowdary RT(S), [facility] Trnscb Date/Time: 01/13/2019 (162) t.ALTAFR.RR31 Orig Print D/T: S: 01/13/2019 (9328) Probe: PAGE 2 Signed Report BASIC METABOLIC [id number] 16:09:00* Test Item Value Reference Range Interpretation [...] CA) 8.8 mg/dL 8.5-10.1 N HEPATIC FUNCTION [id number] 16:09:00* Test Item Value Reference Range Interpretation [...] reference range due to change in reagent. [id number] 16:09:00* Test Item Value Reference Range Interpretation Comments LIPASE (test code = LIP) 99 U/L 73.0-393.0 N CBC W/O [id number] 16:05:00* Test Item Value Reference Range Interpretation [...] MPV) 9.2 fL 6.7-11.0 N CBC W/O [id number] 16:04:00* Test Item Value Reference Range Interpretation [...] code = MPV) fL 6.7-11.0 BASIC METABOLIC [id number] 15:58:00* Test Item Value Reference Range Interpretation [...] code = CA) mg/dL 8.5-10.1 HEPATIC FUNCTION [id number] 15:58:00* Test Item Value Reference Range Interpretation [...] TOTAL (test code = ALKP) IUnit/L 45-117 [id number] 15:58:00* Test Item Value Reference Range Interpretation Comments LIPASE (test code = LIP) U/L 73.0-393.0 URINALYSIS [id number] 15:57:00* Test Item Value Reference Range Interpretation [...] FEW #/LPF Urine Source? Clean CatchCOMPREHENSIVE METABOLIC [id number] 08:01:00* Test Item Value Reference Range Interpretation [...] code = ALKP) 174 U/L 38-126 H [id number] 08:01:00* Test Item Value Reference Range Interpretation Comments MAGNESIUM (test code = MAG) 2.2 mg/dL 1.6-2.3 N COMPREHENSIVE METABOLIC [id number] 07:49:00* Test Item Value Reference Range Interpretation [...] code = ALKP) 174 U/L 38-126 H [id number] 07:49:00* Test Item Value Reference Range Interpretation Comments MAGNESIUM (test code = MAG) mg/dL 1.6-2.3 CBC W/AUTO [id number] 07:34:00* Test Item Value Reference Range Interpretation [...] 0.05 x10 3/uL 0.0-0.1 N BASIC METABOLIC [id number] 02:48:00* Test Item Value Reference Range Interpretation [...] 8.4-10.2 N UA RFLX MICR CULT IF [id number] 02:42:00* Test Item Value Reference Range Interpretation [...] 0.04 x10 3/uL 0.0-0.1 N LACTIC ACID [id number] 02:30:00* Test Item Value Reference Range Interpretation Comments LACTIC ACID POC (test code = LACTP) 0.95 mmol/L 0.7-2.0 N - CT ABD PELVIS W/O [id number] 22:43:00 Name: LAVONNE CONTRERAS [facility] : 1960 Age/S: 57 / M [address] [facility] Unit #: [id number] Loc: [place] [address] Phys: Jayna Brand MD Acct: [id number] Dis Date: Status: DEP ER PHONE #: [phone] Exam Date: 10/06/20182129 FAX #: [phone] Reason: HEMATURIA EXAMS: CPT CODE: [id number] CT ABD PELVIS W/O CONT 33645 REASON FOR EXAM: HEMATURIA EXAM ORDER DATE: [...] : 1960 Age/S: 57 / M [address] [facility] Unit #: [id number] Loc: [place] [address] Phys: Jayna Brand MD Acct: [id number] Dis Date: tus: [facility] ER PHONE #: [phone] Exam Date : 10/06/2018 2130 FAX #: [phone] Reason: HEMATURI A EXAMS: CPT CODE: [id number] CT ABD PELVIS W/O CONT 42108 <Continued> Peritoneum and retroperitoneum: No free fluid [...] suggestive of bowel obstruction. Please correlate clinically. E lectronically Signed by Joe Vu MD on 10/06/2018 at 2243 Reported and signed by: Joe Vu MD CC: Aleyda Kramer MD Technologist:CLAUDE MAY RT(R),RDMS,CT CTDI: DLP: Trnscb Date/Time: 10/06/2018 (869) t.SDR.RR31 Orig Print D/T: S: 10/06/2018 (9115) PAGE 2 Signed Report - CT ABD PELVIS W/O CONT 2018-10-06 22:43:00 Name: LAVONNE CONTRERAS [facility] : 1960 Age/S: 57 / M [address] [facility] Unit #: [id number] Loc: [place] [address] Phys: Jayna Brand MD Acct: [id number] Dis Date: Status: REG ER PHONE #: [phone] Exam Date: 10/06/2018 213 FAX #: [phone] Reason: HEMATURIA EXAMS: CPT CODE: [id number] CT ABD PELVIS W/O CONT 71751 REASON FOR EXAM: HEMATURIA EXAM ORDER DATE: [...] is clear. Hepatobiliary system: Liver is grossly unremarkable. There has been a prior cholecystectomy. Pancreas: Normal Spleen: Normal Adrenal glands: Normal Genitourinary system: Penile implant is present. There is a saline reservoir within the left inguinal canal. Gastrointestinal tract and appendix: Percutaneous gastrostomy tube is present. There appears to been a previous segmental small bowel resection and anastomotic sutures are seen in the right lower abdomen. There is marked dilation of several loops of small bowel in the mid abdomen. These loops measure up to 5.8 cm in diameter. The distal small bowel appears to be normal in caliber. Abdominal vascular structures: Grossly normal PAGE 1 Signed Report (CONTINUED) Name: LAVONNE CONTRERAS [facility] : 1960 Age/S: 57 / M [address] [facility] Unit #: [id number] Loc: [place] [address] Phys: Jayna Brand MD Acct: [id number] Dis Date: Status: REG ER PHONE #: [phone] Exam Date: 10/06/20182129 FAX #: [phone] Reason: HEMATURIA EXAMS: CPT CODE: [id number] CT ABD PELVIS W/O CONT 81636 <Continued> Peritoneum and retroperitoneum: No free fluid [...] MAY RT(R),RDMS,CT CTDI: DLP: Trnscb Date/Time: 10/06/2018 (2242) ThomasEdouardRR31 Orig Print D/T: S: 10/06/2018 (3535) PAGE 2 Signed Report COMPREHENSIVE METABOLIC [id number] 20:48:00 * Test Item Value Reference Range Interpretation [...] = ALKP) 272 U/L 38-126 H PROTHROMBIN [id number] 20:47:00* Test Item Value Reference Range Interpretation [...] (2.5-3.5) IS PATIENT ON ANTICOAGULANTS? NTHROMBOPLASTIN TIME [id number] 20:47:00* Test Item Value Reference Range Interpretation Comments THROMBOPLASTIN TIME PARTIAL (test code = PTT) 23.7 seconds 25.5-34. 3 L Therapeutic Range for patients on Heparin Therapy is 2 to2.5 times their baseline PTT level. IS PATIENT ON ANTICOAGULANTS? NCBC W/AUTO [id number] 20:29:00* Test Item Value Reference Range Interpretation [...] REQUIRED (test code = MDIFF) NO URINALYSIS [id number] 20:28:00* Test Item Value Reference Range Interpretation [...] LPF NONE-FEW A Urine Source? Clean CatchURINALYSIS [id number] 20:18:00* Test Item Value Reference Range Interpretation [...] HPF NONE Urine Source? Clean CatchBASIC METABOLIC [id number] 05:31:00* Test Item Value Reference Range Interpretation [...] stoppedComments to Phleb: IF not already drawn [id number] 05:31:00* Test Item Value Reference Range Interpretation Comments PHOSPHOROUS (test code = PHOS) 4.4 mg/dL 2.5-4.5 N Spec Comments: Order to be discontinued when PN is stoppedComments to Phleb: IF not already drawn [id number] 05:31:00* Test Item Value Reference Range Interpretation Comments MAGNESIUM (test code = MAG) 2.1 mg/dL 1.6-2.3 N Spec Comments: Order to be discontinued when PN is stoppedComments to Phleb: IF not already drawn todayBASIC METABOLIC [id number] 05:17:00* Test Item Value Reference Range Interpretation [...] stoppedComments to Phleb: IF not already drawn [id number] 05:17:00* Test Item Value Reference Range Interpretation Comments PHOSPHOROUS (test code = PHOS) mg/dL 2.5-4.5 Spec Comments: Order to be discontinued when PN is stoppedComments to Phleb: IF not already drawn [id number] 05:17:00* Test Item Value Reference Range Interpretation Comments MAGNESIUM (test code = MAG) mg/dL 1.6-2.3 Spec Comments: Order to be discontinued when PN is stoppedComments to Phleb: IF not already drawn todayCBC W/AUTO [id number] 04:59:00* Test Item Value Reference Range Interpretation [...] stoppedComments to Phleb: IF not already [facility] METABOLIC [id number] 07:24:00* Test Item Value Reference Range Interpretation [...] to be discontinue d when PN is dlsqprnENYHNXWBPDG4830-01-06 07:24:00* Test Item Value Reference Range Interpretation Comments PHOSPHOROUS (test code = PHOS) 4.7 mg/dL 2.5-4.5 H Spec Comments: Order to be discontinued when PN is stoppedComments to Phleb: IF not already drawn todaySpec Comments: weeklyComments to Phleb: to be discontinue d when PN is u[id number] 07:24:00* Test Item Value Reference Range Interpretation Comments TRIGLYCERIDES (test code = TRIG) 186 mg/dL TRIGLYCERIDES REFERENCE RANGE:Normal: <150 mg/dLBorderline High: 150-199 mg/dLHigh: 200-499 mg/dLVery High: >=500 mg/dL Spec Comments: Order to be discontinued when PN is stoppedComments to Phleb: IF not already drawn todaySpec Comments: weeklyComments to Phleb: to be discontinue d when PN is jejjsvoRBSUBBNDO0051-06-29 07:24:00* Test Item Value Reference Range Interpretation Comments MAGNESIUM (test code = MAG) 2.0 mg/dL 1.6-2.3 N Spec Comments: Order to be discontinued when PN is stoppedComments to Phleb: IF not already drawn todaySpec Comments: weeklyComments to Phleb: to be discontinue d when PN is ntcdefhXILYBEDRWO5210-26-87 07:24:00* Test Item Value Reference Range Interpretation Comments PREALBUMIN (test code = PREALB) 21.17 mg/dL 17.6-36.0 N Spec Comments: Order to be discontinued when PN is stoppedComments to Phleb: IF not already drawn todaySpec Comments: weeklyComments to Phleb: to be discontinue d when PN is stoppedBASIC METABOLIC [id number] 07:14:00* Test Item Value Reference Range Interpretation [...] to be discontinue d when PN is xgypvmtSMKULJUGRMN7846-35-07 07:14:00* Test Item Value Reference Range Interpretation Comments PHOSPHOROUS (test code = PHOS) 4.7 mg/dL 2.5-4.5 H Spec Comments: Order to be discontinued when PN is stoppedComments to Phleb: IF not already drawn todaySpec Comments: weeklyComments to Phleb: to be discontinue d when PN is u[id number] 07:14:00* Test Item Value Reference Range Interpretation Comments TRIGLYCERIDES (test code = TRIG) 186 mg/dL TRIGLYCERIDES REFERENCE RANGE:Normal: <150 mg/dLBorderline High: 150-199 mg/dLHigh: 200-499 mg/dLVery High: >=500 mg/dL Spec Comments: Order to be discontinued when PN is stoppedComments to Phleb: IF not already drawn todaySpec Comments: weeklyComments to Phleb: to be discontinue d when PN is vryueuzUKGKSOLQR9734-29-32 07:14:00* Test Item Value Reference Range Interpretation Comments MAGNESIUM (test code = MAG) 2.0 mg/dL 1.6-2.3 N Spec Comments: Order to be discontinued when PN is stoppedComments to Phleb: IF not already drawn todaySpec Comments: weeklyComments to Phleb: to be discontinue d when PN is lsdkvbrWQOBPVMYBL7336-14-32 07:14:00* Test Item Value Reference Range Interpretation Comments PREALBUMIN (test code = PREALB) mg/dL 17.6-36.0 Spec Comments: Order to be discontinued when PN is stoppedComments to Phleb: IF not already drawn todaySpec Comments: weeklyComments to Phleb: to be discontinue d when PN is stoppedBASIC METABOLIC [id number] 07:09:00* Test Item Value Reference Range Interpretation [...] to be discontinue d when PN is wszrujyMGMJJVIWJNF7744-04-72 07:09:00* Test Item Value Reference Range Interpretation Comments PHOSPHOROUS (test code = PHOS) mg/dL 2.5-4.5 Spec Comments: Order to be discontinued when PN is stoppedComments to Phleb: IF not already drawn todaySpec Comments: weeklyComments to Phleb: to be discontinue d when PN is aunnihkSCKAYEYBIEQTM4149-39-72 07:09:00* Test Item Value Reference Range Interpretation Comments TRIGLYCERIDES (test code = TRIG) mg/dL Spec Comments: Order to be discontinued when PN is stoppedComments to Phleb: IF not already drawn todaySpec Comments: weeklyComments to Phleb: to be discontinue d when PN is mjzpgyfIMDGCPFAD6376-43-04 07:09:00* Test Item Value Reference Range Interpretation Comments MAGNESIUM (test code = MAG) mg/dL 1.6-2.3 Spec Comments: Order to be discontinued when PN is stoppedComments to Phleb: IF not already drawn todaySpec Comments: weeklyComments to Phleb: to be discontinue d when PN is bviqhlzVVCYNDQDEU7647-19-65 07:09:00* Test Item Value Reference Range Interpretation Comments PREALBUMIN (test code = PREALB) mg/dL 17.6-36.0 Spec Comments: Order to be discontinued when PN is stoppedComments to Phleb: IF not already drawn todaySpec Comments: weeklyComments to Phleb: to be discontinue d when PN is stoppedPROTHROMBIN [id number] 07:01:00* Test Item Value Reference Range Interpretation [...] be discontinued when PN is stoppedCBC W/AUTO [id number] 06:55:00* Test Item Value Reference Range Interpretation [...] stoppedComments to Phleb: IF not already [facility] todayB[facility]OL[facility] [id number] 06:33:00* Test Item Value Reference Range Interpretation [...] stoppedComments to Phleb: IF not already drawn [id number] 06:33:00* Test Item Value Reference Range Interpretation Comments PHOSPHOROUS (test code = PHOS) 3.9 mg/dL 2.5-4.5 N Spec Comments: Order to be discontinued when PN is stoppedComments to Phleb: IF not already drawn [id number] 06:33:00* Test Item Value Reference Range Interpretation Comments MAGNESIUM (test code = MAG) 1.9 mg/dL 1.6-2.3 N Spec Comments: Order to be discontinued when PN is stoppedComments to Phleb: IF not already drawn todayCBC W/AUTO [id number] 06:13:00* Test Item Value Reference Range Interpretation [...] Phleb: IF not already drawn todayBASI METABOLIC [id number] 06:09:00* Test Item Value Reference Range Interpretation [...] stoppedComments to Phleb: IF not already drawn [id number] 06:09:00* Test Item Value Reference Range Interpretation Comments PHOSPHOROUS (test code = PHOS) 3.6 mg/dL 2.5-4.5 N Spec Comments: Order to be discontinued when PN is stoppedComments to Phleb: IF not already drawn [id number] 06:09:00* Test Item Value Reference Range Interpretation Comments MAGNESIUM (test code = MAG) 2.0 mg/dL 1.6-2.3 N Spec Comments: Order to be discontinued when PN is stoppedComments to Phleb: IF not already drawn todayBASIC METABOLIC [id number] 06:08:00* Test Item Value Reference Range Interpretation [...] stoppedComments to Phleb: IF not already drawn [id number] 06:08:00* Test Item Value Reference Range Interpretation Comments PHOSPHOROUS (test code = PHOS) mg/dL 2.5-4.5 Spec Comments: Order to be discontinued when PN is stoppedComments to Phleb: IF not already drawn mgkdwTCGSRUYFM8732-00-03 06:08:00* Test Item Value Reference Range Interpretation Comments MAGNESIUM (test code = MAG) mg/dL 1.6-2.3 Spec Comments: Order to be discontinued when PN is stoppedComments to Phleb: IF not already drawn todayUN[facility] [id number] 05:48:00* Test Item Value Reference Range Interpretation [...] Phleb: IF not already drawn todayBASIC METABOLIC [id number] 04:45:00* Test Item Value Reference Range Interpretation [...] stoppedComments to Phleb: IF not already drawn [id number] 04:45:00* Test Item Value Reference Range Interpretation Comments PHOSPHOROUS (test code = PHOS) 3.8 mg/dL 2.5-4.5 N Spec Comments: Order to be discontinued when PN is stoppedComments to Phleb: IF not already drawn [id number] 04:45:00* Test Item Value Reference Range Interpretation Comments MAGNESIUM (test code = MAG) 1.8 mg/dL 1.6-2.3 N Spec Comments: Order to be discontinued when PN is stoppedComments to Phleb: IF not already drawn todayCBC W/AUTO [id number] 04:32:00* Test Item Value Reference Range Interpretation [...] Phleb: IF not already drawn todayBASI METABOLIC [id number] 05:55:00* Test Item Value Reference Range Interpretation [...] stoppedComments to Phleb: IF not already drawn [id number] 05:55:00* Test Item Value Reference Range Interpretation Comments PHOSPHOROUS (test code = PHOS) 3.7 mg/dL 2.5-4.5 N Spec Comments: Order to be discontinued when PN is stoppedComments to Phleb: IF not already drawn [id number] 05:55:00* Test Item Value Reference Range Interpretation Comments MAGNESIUM (test code = MAG) 1.9 mg/dL 1.6-2.3 N Spec Comments: Order to be discontinued when PN is stoppedComments to Phleb: IF not already drawn todayCBC W/AUTO [id number] 05:32:00* Test Item Value Reference Range Interpretation [...] Phleb: IF not already drawn todayBASI METABOLIC [id number] 04:16:00* Test Item Value Reference Range Interpretation [...] stoppedComments to Phleb: IF not already drawn dzaccGNDJDNWBADN8486-91-92 04:16:00* Test Item Value Reference Range Interpretation Comments PHOSPHOROUS (test code = PHOS) 3.8 mg/dL 2.5-4.5 N Spec Comments: Order to be discontinued when PN is stoppedComments to Phleb: IF not already drawn cbmitKTBECCRVU3330-24-74 04:16:00* Test Item Value Reference Range Interpretation Comments MAGNESIUM (test code = MAG) 2.0 mg/dL 1.6-2.3 N Spec Comments: Order to be discontinued when PN is stoppedComments to Phleb: IF not already drawn todayCBC W/AUTO [id number] 03:53:00* Test Item Value Reference Range Interpretation [...] Phleb: IF not already drawn today- SP FLUORO [id number] 10:59:00 [place]: St: ADM Name: LAVONNE BAEZA [facility] : [birth year] Age/S: 57/M [address] Unit #: [id number] Loc: C.[address] [place] [address] Phys: Jayde Lee Acct: [id number] Dis Date: Status: ADM IN PHONE #: [phone] Exam Date: 09/25/2018 1036 FAX #: [phone] Reason: EXAMS: CPT CODE: [id number] SP FLUORO NDL 23615 Exam: 1. Percutaneo us ultrasound/fluoroscopic guided gastrostomy tube placement. Procedure: - SP FLUORO NDL, - FLUORO GUID CTRL ACC DEV LOCATIO N CODE: C3 Technique: Risk, benefits, procedure w [...] secured with suture from anchoring set. Patient justo rated procedure well without a complication. FLUOROSCOPIC TIME: 54 seconds NUMBER OF IMAGES: 1 RADIATION DOSE: 30.2 m Gy PAGE 1 Signed Report (C ONTINUED) [place]: St: ADM Name: LAVONNE CONTRERAS [facility] : 1960 Age/S: 57/M [address] Unit #: [id number] Loc: [place] [address] Phys: JesusLiana DO Acct: [id number] Dis Date: Status: ADM IN PHONE #: Exam Date: 09/25/2018 1033 FAX #: Reason: EXAMS: CPT CODE: [id number] [place] L [address] <Continued> Discussion: Initial preliminary images demonstrate multiple distended loop of small bowel. The gastric is decompressed. NG tube is in position. Upon completion of the ng tube placement injection of contrast demonstrate extension of contrast into the decompressed gastric pouch. No contrast extravasation seen. Impression: 1. Status post placement of percutaneous gastrostomy tube placeme nt. a t 3196 Reported and signed by: Juan Ramon Rodríguez M.D. CC: Techn ologist: Tatyana Talavera Trnscrd Date/Madhu e/By: 09/25/2018 (1051) : By: TannaHPD PAGE 2 Signed Report [place]: St: ADM Name: LAVONNE CONTRERAS [facility] : 1960 Age/S: 57/M [address] Unit #: [id number] Loc: C.[place]azmy[address] [place], [place] [address] Phys: Jayde Lee DO Acct: [id number] Dis Date: Status: ADM IN PHONE #: [phone] Exam Date: 09/25/2018 1033 FAX #: [phone] Reason: EXAMS: C PT CODE: [id number] SP FLUORO NDL 91125 <Continued> Orig Print D/T: S: 09/25/2018 (3693) PAGE 3 Signed Report BASIC METABOLIC [id number] 04:54:00* Test Item Value Reference Range Interpretation [...] stoppedComments to Phleb: IF not already drawn snrwvSVDOFNMTAFM1203-33-84 04:54:00* Test Item Value Reference Range Interpretation Comments PHOSPHOROUS (test code = PHOS) 4.9 mg/dL 2.5-4.5 H Spec Comments: Order to be discontinued when PN is stoppedComments to Phleb: IF not already drawn uvayqERPWKNKXX6291-12-31 04:54:00* Test Item Value Reference Range Interpretation Comments MAGNESIUM (test code = MAG) 2.2 mg/dL 1.6-2.3 N Spec Comments: Order to be discontinued when PN is stoppedComments to Phleb: IF not already drawn todayCBC W/AUTO [id number] 04:11:00* Test Item Value Reference Range Interpretation [...] Phleb: IF not already drawn todayBASI METABOLIC [id number] 06:53:00* Test Item Value Reference Range Interpretation [...] Phleb: IF not already drawn todaySpec Comments: ieb8Doyu Comments: DAY 3PHOSPHOROUS 2018-09-24 06:53:00* Test Item Value Reference Range Interpretation Comments PHOSPHOROUS (test code = PHOS) 4.7 mg/dL 2.5-4.5 H Spec Comments: Order to be discontinued when PN is stoppedComments to Phleb: IF not already drawn todaySpec Comments: vjk8Yttc Comments: DAY 3TRIGLYCERIDES 2018-09-24 06:53:00* Test Item Value Reference Range Interpretation Comments TRIGLYCERIDES (test code = TRIG) 281 mg/dL TRIGLYCERIDES REFERENCE RANGE:Normal: <150 mg/dLBorderline High: 150-199 mg/dLHigh: 200-499 mg/dLVery High: >=500 mg/dL Spec Comments: Order to be discontinued when PN is stoppedComments to Phleb: IF not already drawn todaySpec Comments: kyd4Rzmw Comments: DAY 3MAGNESIUM 2018-09-24 06:53:00* Test Item Value Reference Range Interpretation Comments MAGNESIUM (test code = MAG) 2.1 mg/dL 1.6-2.3 N Spec Comments: Order to be discontinued when PN is stoppedComments to Phleb: IF not already drawn todaySpec Comments: ooi3Nyuf Comments: DAY 3PREALBUMIN 2018-09-24 06:53:00* Test Item Value Reference Range Interpretation Comments PREALBUMIN (test code = PREALB) 24.65 mg/dL 17.6-36.0 N Spec Comments: Order to be discontinued when PN is stoppedComments to Phleb: IF not already drawn todaySpec Comments: egl6Klff Comments: DAY 3BASIC METABOLIC [id number] 06:46:00* Test Item Value Reference Range Interpretation [...] Phleb: IF not already drawn todaySpec Comments: hph8Hszp Comments: DAY 3PHOSPHOROUS 2018-09-24 06:46:00* Test Item Value Reference Range Interpretation Comments PHOSPHOROUS (test code = PHOS) mg/dL 2.5-4.5 Spec Comments: Order to be discontinued when PN is stoppedComments to Phleb: IF not already drawn todaySpec Comments: zuc2Wmwp Comments: DAY 3TRIGLYCERIDES 2018-09-24 06:46:00* Test Item Value Reference Range Interpretation Comments TRIGLYCERIDES (test code = TRIG) mg/dL Spec Comments: Order to be discontinued when PN is stoppedComments to Phleb: IF not already drawn todaySpec Comments: nxw5Sinr Comments: DAY 3MAGNESIUM 2018-09-24 06:46:00* Test Item Value Reference Range Interpretation Comments MAGNESIUM (test code = MAG) mg/dL 1.6-2.3 Spec Comments: Order to be discontinued when PN is stoppedComments to Phleb: IF not already drawn todaySpec Comments: nso1Hkjn Comments: DAY 3PREALBUMIN 2018-09-24 06:46:00* Test Item Value Reference Range Interpretation Comments PREALBUMIN (test code = PREALB) mg/dL 17.6-36.0 Spec Comments: Order to be discontinued when PN is stoppedComments to Phleb: IF not already drawn todaySpec Comments: bdl9Iata Comments: DAY 3BASIC METABOLIC [id number] 06:46:00* Test Item Value Reference Range Interpretation [...] Phleb: IF not already drawn todaySpec Comments: qpt3Kfon Comments: DAY 3PHOSPHOROUS 2018-09-24 06:46:00* Test Item Value Reference Range Interpretation Comments PHOSPHOROUS (test code = PHOS) 4.7 mg/dL 2.5-4.5 H Spec Comments: Order to be discontinued when PN is stoppedComments to Phleb: IF not already drawn todaySpec Comments: nlt2Slup Comments: DAY 3TRIGLYCERIDES 2018-09-24 06:46:00* Test Item Value Reference Range Interpretation Comments TRIGLYCERIDES (test code = TRIG) 281 mg/dL TRIGLYCERIDES REFERENCE RANGE:Normal: <150 mg/dLBorderline High: 150-199 mg/dLHigh: 200-499 mg/dLVery High: >=500 mg/dL Spec Comments: Order to be discontinued when PN is stoppedComments to Phleb: IF not already drawn todaySpec Comments: bww0Ahmz Comments: DAY 3MAGNESIUM 2018-09-24 06:46:00* Test Item Value Reference Range Interpretation Comments MAGNESIUM (test code = MAG) 2.1 mg/dL 1.6-2.3 N Spec Comments: Order to be discontinued when PN is stoppedComments to Phleb: IF not already drawn todaySpec Comments: uws7Wdzb Comments: DAY 3PREALBUMIN 2018-09-24 06:46:00* Test Item Value Reference Range Interpretation Comments PREALBUMIN (test code = PREALB) mg/dL 17.6-36.0 Spec Comments: Order to be discontinued when PN is stoppedComments to Phleb: IF not already drawn todaySpec Comments: nas8Ptth Comments: DAY 3PROTHROMBIN TIME 2018-09-24 06:27:00* Test [...] En oxaprin (Lovenox)Spec Comments: day 3CBC W/AUTO [id number] 06:26:00* Test Item Value Reference Range Interpretation [...] Phleb: IF not already drawn todayBASI METABOLIC [id number] 05:29:00* Test Item Value Reference Range Interpretation [...] stoppedComments to Phleb: IF not already drawn rqfpaXGXSYSUBLFM3592-26-72 05:29:00* Test Item Value Reference Range Interpretation Comments PHOSPHOROUS (test code = PHOS) 3.8 mg/dL 2.5-4.5 N Spec Comments: Order to be discontinued when PN is stoppedComments to Phleb: IF not already drawn prpcvZIOUVCQIH8570-16-11 05:29:00* Test Item Value Reference Range Interpretation Comments MAGNESIUM (test code = MAG) 1.7 mg/dL 1.6-2.3 N Spec Comments: Order to be discontinued when PN is stoppedComments to Phleb: IF not already drawn todayCBC W/AUTO [id number] 05:12:00* Test Item Value Reference Range Interpretation [...] not already drawn today- XR CHEST 1 [id number] 14:11:00 FAX: Luis Enrique Daniel MD [phone] [place]: St: ADM FAX: Katy Pro MD [phone] Name: LAVONNE CONTRERAS [facility] : 1960 Age/S: 57/M [address] Unit #: [id number] Loc: C[address] [place] [address] Phys: Luis Enrique Orellana MD Acct: [id number] Dis Date: Status: ADM IN PHONE #: [phone] Exam Date: 09/22/2018 1230 FAX #: [phone] Reason: CHECK FOR PICC LINE P LACEMENT EXAMS: CPT CODE: [id number] XR CHEST 1 V 13774 Location: B2. CHEST, FRONTAL VIEW HISTORY: CHECK FOR PICC LINE PLACEMENT FINDI NGS: Since 09/16/18, right PICC line remains in good position withi n the SVC. The lungs are clear. Nasogastric tube within the stomach. Th e heart size is normal. Bones are unremarkable. IMPRESSIO N: No evidence of acute cardiopulmonary disease. Right PICC line in good position within the SVC. Nasogast toni tube in good position within the stomach. Electronicall y Signed by Adrienne Tucker MD on 09/22/2018 at 1411 Reported and signed by: Reese Tucker MD CC: Luis Enrique Orellana MD; Katy Haines MD Technologist: Dilcia Drew Trnsc rd Date/Time/By: 09/22/2018 (1411) : By: [email or web address] PAGE 1 Signed Report FAX: Lisset Daniel MD [phone] [place]: St: [facility] FAX: Katy Pro MD [phone] Name: LAVONNE CONTRERAS [facility] : 1960 Age/S: 57/M [address] Unit #: [id number] Loc: [address] [place] [address] Phys: Luis Enrique Orellana MD Acct: [id number] Dis Date: Status: ADM IN PHONE #: [phone] Exam Date: 09/22/2018 1230 FAX #: [phone] Reason: CHECK FOR PICC LINE PLACEMENT EXAMS: CPT CODE: [id number] XR CHEST 1 V 42459 <Continued> Orig Print D/T: S: 09/22/2018 (1820) PAGE 2 Signed Report - XR ABDOMEN [id number] 14:08:00 FAX: Luis Enrique Daniel MD [phone] [place]: St: ADM FAX: Katy Pro MD [phone] Name: LAVONNE CONTRERAS [facility] : 1960 Age/S: 57/M [address] Unit #: [id number] Loc: [address] [place] [address] Phys: Luis Enrique Orellana MD Acct: [id number] Dis Date: Status: ADM IN PHONE #: [phone] Exam Date: 09/22/2018 1230 FAX #: [phone] Reason: f/u ileus EXAMS: CPT CODE: [id number] XR ABDOMEN 2V 57097 EXAM: Abdominal x-ray, 2 views Location: T 18 INDICATION: Follow-up ileus, partial small bowel obstruction [...] of the stomach. No acute bony abnormalities ar e seen. There has been previous left sacroiliac [...] Orellana MD; Katy Haines MD Technologist: Dilcia padilla Trnscrd Date/Time/By: 09/22/2018 (140 8) : By: [email or web address] PAGE 1 Signed Report FAX: Luis Enrique Daniel MD [phone] [place] us: St: ADM FAX: Katy Pro MD [phone] Name: LAVONNE STAFFORD [facility] : 1960 A ge/S: 57/M [address] Unit #: [id number] Loc : [address] [place] [address] Phys: Luis Enrique Orellana MD Acct: [id number] Dis Date: Status: ADM IN PHONE #: [phone] E xam Date: 09/22/2018 1230 FAX #: [phone] Reas on: f/u ileus EXAMS: CPT CODE: [id number] XR ABDOMEN 2V 99491 <Continued> Orig Print D/T: S: 09/22/2018 (1412) PAGE 2 Signed Report BASIC METABOLIC [id number] 12:31:00* Test Item Value Reference Range Interpretation [...] Comments: IF not already drawn todaySpec Comments: [id number] 2018-09-22 12:31:00* Test Item Value Reference Range Interpretation Comments PHOSPHOROUS (test code = PHOS) mg/dL 2.5-4.5 Spec Comments: IF not already drawn todaySpec Comments: [id number] 2018-09-22 12:31:00* Test Item Value Reference Range Interpretation Comments TRIGLYCERIDES (test code = TRIG) mg/dL Spec Comments: IF not already drawn todaySpec Comments: [id number] 12:31:00* Test Item Value Reference Range Interpretation Comments MAGNESIUM (test code = MAG) mg/dL 1.6-2.3 Spec Comments: IF not already drawn todaySpec Comments: XGB1VFZIL METABOLIC [id number] 12:31:00* Test Item Value Reference Range Interpretation [...] Comments: IF not already drawn todaySpec Comments: [id number] 2018-09-22 12:31:00* Test Item Value Reference Range Interpretation Comments PHOSPHOROUS (test code = PHOS) 3.1 mg/dL 2.5-4.5 N Spec Comments: IF not already drawn todaySpec Comments: [id number] 2018-09-22 12:31:00* Test Item Value Reference Range Interpretation Comments TRIGLYCERIDES (test code = TRIG) 287 mg/dL TRIGLYCERIDES REFERENCE RANGE:Normal: <150 mg/dLBorderline High: 150-199 mg/dLHigh: 200-499 mg/dLVery High: >=500 mg/dL Spec Comments: IF not already drawn todaySpec Comments: [id number] 12:31:00* Test Item Value Reference Range Interpretation Comments MAGNESIUM (test code = MAG) 1.7 mg/dL 1.6-2.3 N Spec Comments: IF not already drawn todaySpec Comments: [id number] TIME 2018-09-22 12:17:00* Test Item Value Reference [...] ANTICOAGULANT/ANTI PLT MEDICATION: Akil ferro (SQ)Spec Comments: YIV2HRV W/AUTO [id number] 12:11:00* Test Item Value Reference Range Interpretation [...] 0.08 x10 3/uL 0.0-0.1 N CBC W/MANUAL [id number] 03:32:00* Test Item Value Reference Range Interpretation [...] code = PLTMORPH) NORMAL NORMAL BASIC METABOLIC [id number] 03:09:00* Test Item Value Reference Range Interpretation [...] code = CA) 9.3 mg/dL 8.4-10.2 N [id number] 03:09:00* Test Item Value Reference Range Interpretation Comments PHOSPHOROUS (test code = PHOS) 3.1 mg/dL 2.5-4.5 N [id number] 03:09:00* Test Item Value Reference Range Interpretation Comments MAGNESIUM (test code = MAG) 2.1 mg/dL 1.6-2.3 N CBC W/MANUAL [id number] 03:01:00* Test Item Value Reference Range Interpretation [...] code = LYMPH) % 20.5-45.5 CBC W/MANUAL [id number] 03:01:00* Test Item Value Reference Range Interpretation [...] code = LYMPH) % 20.5-45.5 CBC W/MANUAL [id number] 07:34:00* Test Item Value Reference Range Interpretation [...] LARGE PLATELETS SEEN NOR MAL BASIC METABOLIC [id number] 07:03:00* Test Item Value Reference Range Interpretation [...] code = CA) 9.2 mg/dL 8.4-10.2 N CEDZRQYEBHV9501-41-73 07:03:00* Test Item Value Reference Range Interpretation Comments PHOSPHOROUS (test code = PHOS) 3.1 mg/dL 2.5-4.5 N [id number] 07:03:00* Test Item Value Reference Range Interpretation Comments MAGNESIUM (test code = MAG) 2.2 mg/dL 1.6-2.3 N BASIC METABOLIC [id number] 06:52:00* Test Item Value Reference Range Interpretation [...] code = CA) 9.2 mg/dL 8.4-10.2 N [id number] 06:52:00* Test Item Value Reference Range Interpretation Comments PHOSPHOROUS (test code = PHOS) mg/dL 2.5-4.5 [id number] 06:52:00* Test Item Value Reference Range Interpretation Comments MAGNESIUM (test code = MAG) mg/dL 1.6-2.3 CBC W/MANUAL [id number] 06:33:00* Test Item Value Reference Range Interpretation [...] code = LYMPH) % 20.5-45.5 CBC W/MANUAL [id number] 06:33:00* Test Item Value Reference Range Interpretation [...] code = LYMPH) % 20.5-45.5 CBC W/MANUAL [id number] 07:52:00* Test Item Value Reference Range Interpretation [...] code = PLTMORPH) NORMAL NORMAL BASIC METABOLIC [id number] 07:43:00* Test Item Value Reference Range Interpretation [...] code = CA) 9.1 mg/dL 8.4-10.2 N [id number] 07:43:00* Test Item Value Reference Range Interpretation Comments PHOSPHOROUS (test code = PHOS) 4.0 mg/dL 2.5-4.5 N [id number] 07:43:00* Test Item Value Reference Range Interpretation Comments MAGNESIUM (test code = MAG) 2.4 mg/dL 1.6-2.3 H CBC W/MANUAL [id number] 07:20:00* Test Item Value Reference Range Interpretation [...] code = LYMPH) % 20.5-45.5 CBC W/MANUAL [id number] 07:20:00* Test Item Value Reference Range Interpretation [...] code = LYMPH) % 20.5-45.5 BASIC METABOLIC [id number] 08:05:00* Test Item Value Reference Range Interpretation [...] code = CA) 9.2 mg/dL 8.4-10.2 N [id number] 08:05:00* Test Item Value Reference Range Interpretation Comments PHOSPHOROUS (test code = PHOS) 4.6 mg/dL 2.5-4.5 H [id number] 08:05:00* Test Item Value Reference Range Interpretation Comments MAGNESIUM (test code = MAG) 2.5 mg/dL 1.6-2.3 H BASIC METABOLIC [id number] 08:04:00* Test Item Value Reference Range Interpretation [...] code = CA) 9.2 mg/dL 8.4-10.2 N [id number] 08:04:00* Test Item Value Reference Range Interpretation Comments PHOSPHOROUS (test code = PHOS) mg/dL 2.5-4.5 [id number] 08:04:00* Test Item Value Reference Range Interpretation Comments MAGNESIUM (test code = MAG) mg/dL 1.6-2.3 BASIC METABOLIC [id number] 07:27:00* Test Item Value Reference Range Interpretation Comments SODIUM (test code = NA) TEST NOT PERFORMED mmol/L 137-145 TEST NOT PERFORMED. POSSIBLE CONTAMINATION. SUGGESTSRECOLLECTION. INFORMED [id number] reported result: 129 mmol/LEdited by: NAYELI on 09/18/18:0726~~ Corrected Report ~~Reason (required): BASIC METABOLIC [id number] 07:12:00* Test Item Value Reference Range Interpretation [...] code = CA) 9.2 mg/dL 8.4-10.2 N [id number] 07:12:00* Test Item Value Reference Range Interpretation Comments PHOSPHOROUS (test code = PHOS) 9.2 mg/dL 2.5-4.5 H [id number] 07:12:00* Test Item Value Reference Range Interpretation Comments MAGNESIUM (test code = MAG) 2.9 mg/dL 1.6-2.3 H CBC W/MANUAL [id number] 07:00:00* Test Item Value Reference Range Interpretation [...] code = PLTMORPH) NORMAL NORMAL CBC W/MANUAL [id number] 06:25:00* Test Item Value Reference Range Interpretation [...] code = LYMPH) % 20.5-45.5 CBC W/MANUAL [id number] 06:25:00* Test Item Value Reference Range Interpretation [...] = LYMPH) % 20.5-45.5 - XR SMALL [id number] 06:04:00 FAX: Luis Enrique Daniel MD [phone] [place]: St: ADM FAX: Katy Pro MD [phone] Name: DIANELAVONNE [facility] : 1960 Age/S: 57/M [address] Unit #: [id number] Loc: [address] [place] [address] Phys: Luis Enrique Orellana MD Acct: [id number] Dis Date: Status: ADM IN PHONE #: [phone] Exam Date: 09/17/20182011 FAX #: [phone] Reason: SBO EXAMS: CPT CODE: [id number] XR SMALL BOWEL 76357 HISTORY: Male, 57 years of age with SBO EXAM: S mall bowel series. COMPARISON: Correlation made with CT abdomen an d pelvis with IV contrast performed 08/13/2018; small bowel series performe d 08/14/2018 TECHNIQUE: The patient was given Gastrografin through the enteric tube and sequential images were obtained of the abdomen over t esperanza. The study was carried out to 8 hours. 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 over [...] Katy Haines MD Technologist: MARY GUEVARA; [facility] Date/Time/By: 09/18/2018 (0604) : By: [email or web address] PAGE 1 Signed Report FAX: Maddy Daniel MD [phone] [place]: St: ADM FAX: Katy Pro MD [phone] Name: LAVONNE CONTRERAS [facility] : 1960 Age/S: 57/M [address] Unit #: [id number] Loc: [address] [place] [address] Phys: Luis Enrique Orellana MD Acc t: [id number] Dis Date: Status: ADM IN PHONE #: [phone] Exam Date: 09/17/20182011 FAX #: [phone] Reason: SBO EXAMS: CPT CODE: [id number] XR SMALL BOWEL 84472 <Continued > Orig Print D/T: S: 09/18/2018 (0607) PAGE 2 Signed Report CBC W/MANUAL [id number] 08:27:00* Test Item Value Reference Range Interpretation [...] PLATELET CLUMPS SEEN NOR MAL BASIC METABOLIC [id number] 07:36:00* Test Item Value Reference Range Interpretation [...] code = CA) 9.2 mg/dL 8.4-10.2 N [id number] 07:36:00* Test Item Value Reference Range Interpretation Comments PHOSPHOROUS (test code = PHOS) 3.8 mg/dL 2.5-4.5 N [id number] 07:36:00* Test Item Value Reference Range Interpretation Comments MAGNESIUM (test code = MAG) 2.3 mg/dL 1.6-2.3 N BASIC METABOLIC [id number] 07:35:00* Test Item Value Reference Range Interpretation [...] code = CA) 9.2 mg/dL 8.4-10.2 N [id number] 07:35:00* Test Item Value Reference Range Interpretation Comments PHOSPHOROUS (test code = PHOS) mg/dL 2.5-4.5 [id number] 07:35:00* Test Item Value Reference Range Interpretation Comments MAGNESIUM (test code = MAG) mg/dL 1.6-2.3 CBC W/MANUAL [id number] 07:21:00* Test Item Value Reference Range Interpretation [...] code = LYMPH) % 20.5-45.5 CBC W/MANUAL [id number] 07:21:00* Test Item Value Reference Range Interpretation [...] LYMPH) % 20.5-45.5 - XR CHEST 1 [id number] 23:16:00 FAX: Luis Enrique Daniel MD [phone] [place]: St: [facility] FAX: Katy Pro MD [phone] Name: LAVONNE CONTRERASwood : 1960 Age/S: 57/M [address] Unit #: [id number] Loc: [address] [place] [address] Phys: Luis Enrique Orellana MD Acct: [id number] Dis Date: Status: ADM IN PHONE #: [phone] Exam Date: 09/16/2018 2300 FAX #: [phone] Reason: NG TUBE PLACEMENT EXAMS: CPT CODE: [id number] XR CHEST 1 V 55324 EXAM: Portable chest one view. Location code:J9 HISTORY: Dyspnea COMPARISON: 09/15/2018 COMMENT: Stable position of right-sided PICC line and NG tube.. The lungs and pleural spaces are clear. Lungs are normally expanded. The aorta, pulm onary vasculature and mediastinum are within normal limits. Cardiac silho uette is normal in size and contour. Visualized skeletal structures are un remarkable. IMPRESSION: No active disease in the chest. at 0651 Reported and signed by: Cory Barrios MD CC: Lisset Orellana MD; Katy Haines MD Technologist: YANA ARMENDARIZ ON RT (R) Trnscrd Date/Time/By: 09/16/2018 (4513) : By: [email or web address] PAGE 1 Signed Report FAX: Luis Enrique Daniel MD [phone] [place] : St: [facility] FAX: Katy Pro MD [phone] Name: LAVONNE CONTRERAS : 1960 Age /S: 57/M [address] Unit #: [id number] Loc: [address] [place] [address] Phys: Luis Enrique Orellana MD Acct: [id number] Dis Date: Status: ADM IN PHONE #: [phone] Exa m Date: 09/16/2018 2300 FAX #: [phone] Reason : NG TUBE PLACEMENT EXAMS: CPT CODE: [id number] XR CHEST 1 V 73107 <Continued> Orig Print D/T: S: 09/16/2018 (1944) PAGE 2 Signed Report BASIC METABOLIC [id number] 06:06:00* Test Item Value Reference Range Interpretation [...] code = CA) 8.8 mg/dL 8.4-10.2 N [id number] 06:06:00* Test Item Value Reference Range Interpretation Comments PHOSPHOROUS (test code = PHOS) 3.3 mg/dL 2.5-4.5 N [id number] 06:06:00* Test Item Value Reference Range Interpretation Comments MAGNESIUM (test code = MAG) 2.3 mg/dL 1.6-2.3 N PROTHROMBIN [id number] 05:58:00* Test Item Value Reference Range Interpretation [...] ? YESLIST ANTICOAGULANT/ANTI PLT MEDICATION: venoxTHROMBOPLASTIN TIME [id number] 05:58:00* Test Item Value Reference Range Interpretation Comments THROMBOPLASTIN TIME PARTIAL (test code = PTT) 23.6 SECONDS 23.4-37. 0 N Therapeutic Range for Heparin EFFECTIVE 11/12/12 Heparin IU/mL aPTT Seconds0.3 64.30.7 88.8 IS PATIENT ON ANTICOAGULANTS ? YESLIST ANTICOAGULANT/ANTI PLT MEDICATION: Lo venoxCBC W/AUTO [id number] 05:49:00* Test Item Value Reference Range Interpretation [...] 3/uL 0.0-0.1 N - XR CHEST 1 [id number] 17:08:00 FAX: Luis Enrique Daniel MD [phone] [place]: St: [facility] FAX: Katy Pro MD [phone] Name: LAVONNE CONTRERAS [facility] : 1960 Age/S: 57/M [address] Unit #: [id number] Loc: [address] [place] [address] Phys: Luis Enrique Orellana MD Acct: [id number] Dis Date: Status: ADM IN PHONE #: [phone] Exam Date: 09/15/2018 1704 FAX #: [phone] Reason: PICC LINE PALCEMENT EXAMS: CPT CODE: [id number] XR CHEST 1 V 70946 REASON FOR EXAM: PICC line placement. COMPARISON: [...] lower lung field densities possibly pneumonia or pne umonitis. NG tube entering the stomach . Location: U19 at 1708 Reported and signed by: oTny Morales CC: Luis Enrique Orellana MD; Katy Haines MD Technologist: TRA ROBERTSONmiteresa Date/Time/By: 09/16/19 19 (1708) : By: [facility] PAGE 1 Signed Report FAX: Luis Enrique Daniel MD [phone] [place]: St: ADM FAX: Katy Pro MD [phone] -------- Name: LAVONNE CONTRERAS [facility] : 1960 Age/S: 57/M [address] Unit #: [id number] Loc: [address] [place] [address] Phys: Luis Enrique Orellana MD Acct: [id number] Dis Date: Status: ADM IN PHONE #: Exam Date: 09/15/2018 1704 FAX #: [phone] Reason: PICC LINE PALCEMENT EXAMS: CPT CODE: [id number] XR CHEST 1 V 08659 <Continued> Orig Print D/T: S: 09/15/2018 (3426) PAGE 2 Signed Report - XR ABDOMEN 1 [id number] 13:49:00 FAX: Katy Pro MD [phone] [place]: St: ADM Name: Milli HAMMANGELLAVONNE [facility] : [birth year] Age/S: 57/M [address] Unit #: [id number] Loc: [facility] [place] [address] Phys: Katy Haines MD Acct: [id number] Dis Date: Status: ADM IN PHONE #: [phone] Exam Date: 09/15/2018 1135 FAX #: [phone] Reason: ileus/sbo EXAMS: CPT CODE: [id number] XR ABDOMEN 1 V 47717 EXAM: - XR ABDOMEN 1 V HISTORY: [...] MD Technologist: Jinny Kaur Trnscrd Date/Time/By: 09/15/2018 (1580) : By: [email or web address] PAGE 1 Signed Report FAX: Katy Pro MD [phone] [place]: [facility] St: ADM --------- Name: LAVONNE CONTRERAS [facility] : 1960 Age/S: 57/M [address] Un it #: [id number] Loc: [address] [place] [address] Phys: Katy Haines MD Acct: [id number] Dis Date: Status: ADM IN PH ONE #: [phone] Exam Date: 09/15/2018 1135 FAX #: [phone] Reason: ileus/sbo EXAMS: CPT CODE: [id number] XR ABDOMEN 1 V 61939 <Continued> Orig Print D/T: S: 09/15/2018 (9348) PAGE 2 Signed Report BASIC METABOLIC [id number] 09:26:00* Test Item Value Reference Range Interpretation [...] code = CA) 8.4 mg/dL 8.4-10.2 N [id number] 09:26:00* Test Item Value Reference Range Interpretation Comments PHOSPHOROUS (test code = PHOS) 2.7 mg/dL 2.5-4.5 N [id number] 09:26:00* Test Item Value Reference Range Interpretation Comments MAGNESIUM (test code = MAG) 2.4 mg/dL 1.6-2.3 H BASIC METABOLIC [id number] 09:06:00* Test Item Value Reference Range Interpretation [...] code = CA) 8.4 mg/dL 8.4-10.2 N [id number] 09:06:00* Test Item Value Reference Range Interpretation Comments PHOSPHOROUS (test code = PHOS) 2.7 mg/dL 2.5-4.5 N [id number] 09:06:00* Test Item Value Reference Range Interpretation Comments MAGNESIUM (test code = MAG) mg/dL 1.6-2.3 CBC W/AUTO [id number] 08:43:00* Test Item Value Reference Range Interpretation [...] BA#) 0.05 x10 3/uL 0.0-0.1 N LACTIC [id number] 16:39:00* Test Item Value Reference Range Interpretation Comments LACTIC ACID (test code = LACT) 0.7 mmol/L 0.7-2.0 N - XR CHEST 1 [id number] 14:36:00 FAX: Katy Pro MD [phone] [place]: St: ADM Name: LAVONNE BAEZA [facility] : [birth year] Age/S: 57/M [address] Unit #: [id number] Loc: [address] [place] [address] Phys: Katy Haines MD Acct: [id number] Dis Date: Status: ADM IN PHONE #: [phone] Exam Date: 09/14/2018 1220 FAX #: [phone] Reason: R/O ASPIRATION EXAMS: CPT CODE: [id number] XR CHEST 1 V 72883 LOCATION: T18 EXAM: CHEST 1 VIEW INDICATION: R/O ASPIRATION COMPARISON : Chest x-ray August 11, 2018 TECHNIQUE: AP chest radiograph. FINDINGS: NG tube tip and side port within stomach. Right perihilar airspace opacity concerning for consolidation. Left lung is clear. Hea rt is normal in size. Bones and peripheral soft tissues are unremarkable. IMPRESSION: Right perihilar consolidation concerning for pneumon ia. at 1436 * * Reported and signed by: Claus Chang MD CC: Katy Haines MD Technologist : Joanie Boswell Trnscrd Date/Time/By: 0 09/14/2018 (8207) : By: [email or web address] PAGE 1 Signed Report FAX: Katy Pro MD [phone] [place]: St: ADM Name: LAVONNE CONTRERAS : 1960 Age/S: 57/M [address] Unit #: [id number] Loc: [address] [place] [address] Phys: Katy Haines MD Acct: [id number] Dis Date: Status: ADM IN PHONE #: [phone] Exam Date: 09/14/2018 1220 FAX #: [phone] Reason: R/O ASPIRATION EXAMS: CPT CODE : [id number] XR CHEST 1 V 39808 <Continued> Orig Print D/T: S: 09/14/2018 (9948) PAGE 2 Signed Report BASIC METABOLIC [id number] 05:58:00* Test Item Value Reference Range Interpretation [...] code = CA) 8.7 mg/dL 8.4-10.2 N [id number] 05:58:00* Test Item Value Reference Range Interpretation Comments PHOSPHOROUS (test code = PHOS) 4.1 mg/dL 2.5-4.5 N [id number] 05:58:00* Test Item Value Reference Range Interpretation Comments MAGNESIUM (test code = MAG) 2.1 mg/dL 1.6-2.3 N CBC W/AUTO [id number] 05:33:00* Test Item Value Reference Range Interpretation [...] x10 3/uL 0.0-0.1 N - XR ABDOMEN [id number] 18:10:00 FAX: Luis Enrique Daniel MD [phone] [place]: St: ADM FAX: Katy Pro MD [phone] Name: LAVONNE CONTRERAS [facility] : 1960 Age/S: 57/M [address] Unit #: [id number] Loc: [address] [place] [address] Phys: Luis Enrique Orellana MD Acct: [id number] Dis Date: Status: ADM IN PHONE #: [phone] Exam Date: 09/13/2018 1639 FAX #: [phone] Reason: SBO EXAMS: CPT CODE: [id number] XR ABDOMEN 2V 08895 LOCATION: T18 EXAM: - XR ABDOMEN 2V [...] MD Techno logist: Teri Boswell; Valentina Pascual [facility] Date/Time /By: 09/13/2018 (1809) : By: [email or web address] PAGE 1 Signed Report FAX: Luis Enrique Daniel MD [phone] [place]: St: ADM FAX: Katy Pro MD ---- Name: LAVONNE CONTRERAS [facility] : 1960 Age/S: 57/M [address] Unit #: [id number] Loc: [address] [place] [address] Phys: Luis Enrique Orellana MD Acct: [id number] Dis Date: Status: ADM IN PHONE # : [phone] Exam Date: 09/13/2018 1639 FAX #: Reason: SBO EXAMS : CPT CODE: [id number] XR ABDO MEN 2V 86330 <Continued> Orig Print D/T: S: 09/13/2018 (1812) PAGE 2 Signed Report BASIC METABOLIC [id number] 08:07:00* Test Item Value Reference Range Interpretation [...] code = CA) 9.0 mg/dL 8.4-10.2 N [id number] 08:07:00* Test Item Value Reference Range Interpretation Comments PHOSPHOROUS (test code = PHOS) 4.6 mg/dL 2.5-4.5 H [id number] 08:07:00* Test Item Value Reference Range Interpretation Comments TRIGLYCERIDES (test code = TRIG) 314 mg/dL TRIGLYCERIDES REFERENCE RANGE:Normal: <150 mg/dLBorderline High: 150-199 mg/dLHigh: 200-499 mg/dLVery High: >=500 mg/dL [id number] 08:07:00* Test Item Value Reference Range Interpretation Comments MAGNESIUM (test code = MAG) 2.2 mg/dL 1.6-2.3 N BASIC METABOLIC [id number] 08:06:00* Test Item Value Reference Range Interpretation [...] code = CA) 9.0 mg/dL 8.4-10.2 N [id number] 08:06:00* Test Item Value Reference Range Interpretation Comments PHOSPHOROUS (test code = PHOS) mg/dL 2.5-4.5 [id number] 08:06:00* Test Item Value Reference Range Interpretation Comments TRIGLYCERIDES (test code = TRIG) mg/dL [id number] 08:06:00* Test Item Value Reference Range Interpretation Comments MAGNESIUM (test code = MAG) mg/dL 1.6-2.3 PROTHROMBIN [id number] 07:54:00* Test Item Value Reference Range Interpretation [...] IS PATIENT ON ANTICOAGULANTS ? NOCBC W/AUTO [id number] 07:44:00* Test Item Value Reference Range Interpretation [...] = BA#) 0.05 x10 3/uL 0.0-0.1 N [id number] 16:05:00* Test Item Value Reference Range Interpretation Comments POTASSIUM (test code = K) 3.5 mmol/L 3.4-5.0 N BASIC METABOLIC [id number] 06:23:00* Test Item Value Reference Range Interpretation [...] code = CA) 8.9 mg/dL 8.4-10.2 N [id number] 06:23:00* Test Item Value Reference Range Interpretation Comments PHOSPHOROUS (test code = PHOS) 4.0 mg/dL 2.5-4.5 N [id number] 06:23:00* Test Item Value Reference Range Interpretation Comments MAGNESIUM (test code = MAG) 2.2 mg/dL 1.6-2.3 N BASIC METABOLIC [id number] 06:15:00* Test Item Value Reference Range Interpretation [...] code = CA) 8.9 mg/dL 8.4-10.2 N [id number] 06:15:00* Test Item Value Reference Range Interpretation Comments PHOSPHOROUS (test code = PHOS) mg/dL 2.5-4.5 [id number] 06:15:00* Test Item Value Reference Range Interpretation Comments MAGNESIUM (test code = MAG) mg/dL 1.6-2.3 CBC W/AUTO [id number] 05:47:00* Test Item Value Reference Range Interpretation [...] 0.06 x10 3/uL 0.0-0.1 N BASIC METABOLIC [id number] 08:44:00* Test Item Value Reference Range Interpretation [...] code = CA) 8.7 mg/dL 8.4-10.2 N [id number] 08:44:00* Test Item Value Reference Range Interpretation Comments PHOSPHOROUS (test code = PHOS) 3.0 mg/dL 2.5-4.5 N [id number] 08:44:00* Test Item Value Reference Range Interpretation Comments TRIGLYCERIDES (test code = TRIG) 320 mg/dL TRIGLYCERIDES REFERENCE RANGE:Normal: <150 mg/dLBorderline High: 150-199 mg/dLHigh: 200-499 mg/dLVery High: >=500 mg/dL [id number] 08:44:00* Test Item Value Reference Range Interpretation Comments MAGNESIUM (test code = MAG) 1.9 mg/dL 1.6-2.3 N BASIC METABOLIC [id number] 08:43:00* Test Item Value Reference Range Interpretation [...] code = CA) 8.7 mg/dL 8.4-10.2 N [id number] 08:43:00* Test Item Value Reference Range Interpretation Comments PHOSPHOROUS (test code = PHOS) mg/dL 2.5-4.5 [id number] 08:43:00* Test Item Value Reference Range Interpretation Comments TRIGLYCERIDES (test code = TRIG) mg/dL [id number] 08:43:00* Test Item Value Reference Range Interpretation Comments MAGNESIUM (test code = MAG) mg/dL 1.6-2.3 PROTHROMBIN [id number] 08:39:00* Test Item Value Reference Range Interpretation [...] IS PATIENT ON ANTICOAGULANTS ? NOCBC W/AUTO [id number] 08:33:00* Test Item Value Reference Range Interpretation [...] x10 3/uL 0.0-0.1 N - XR ABDOMEN [id number] 06:12:00 FAX: Luis Enrique Daniel MD [phone] [place]: [facility]: [facility] FAX: Katy Pro MD [phone] Name: LAVONNE CONTRERAS [facility] : 1960 Age/S: 57/M [address] Unit #: [id number] Loc: [address] [place] [address] Phys: Luis Enrique Orellana MD Acct: [id number] Dis Date: Status: ADM IN PHONE #: [phone] Exam Date: 09/11/2018 0450 FAX #: [phone] Reason: NAUSEA AND VOMITING EXAMS: CPT CODE: [id number] XR ABDOMEN 2V 31511 AFTER HOURS SERVICE ON: 09/11/2018 6:11 AM Abdomen, 3 View Location Code M12 History: NAUSEA AND VOMITIN G Findings: Slightly decreasing small bowel dilatati on is seen in the central abdomen. There [...] and signed by: Erika Christensen MD CC: Enrico Orellana MD; Katy Haines MD Technologist: RT Armand (Joe) Trnscrd Date/Time/By: 09/11/2018 (0612) : By: [email or web address] PAGE 1 Signed Report FAX: Luis Enrique Daniel MD [phone] [place]: St: ADM FAX: Katy Pro MD [phone] Name: Opal CONTRERAS [facility] : 1960 Age/ S: 57/M [address] Unit #: [id number] Loc: C [address] [place] [address] Phys: Luis Enrique Orellana MD Acct: [id number] Dis Date: Status: ADM IN PHONE #: [phone] Exam Date: 09/11/2018 0450 FAX #: [phone] Reason: NAUSEA AND VOMITING EXAMS: CPT CODE: [id number] XR ABDOMEN 2V 77228 <Continued> Orig Print D/T: S: 09/11/2018 (615) PAGE 2 Signed Report APPENDIX,OTHER THAN [id number] 20:01:00 RUN DATE: 09/09/18 [facility] PAGE 1 RUN TIME: 2001 Specimen Inqui ry RUN USER: INTERFACE PATIENT: LAVONNE CONTRERAS ACCT #: [id number] LOC: MATEUS U #: [id number] AGE/SX: 57/M ROOM: [facility] RE09/02/18REG DR: Jayde Lee DO : 62 BED: A DIS: STATUS: ADM IN TLOC: SPEC #: [id number] RECD: 09/05/18 STATUS: VICK JOHNSON #: [id number] SORIN: 09/05/[address] [facility] [address]: Alessandro Galindo ENTERED: 09/05/18 SP TYPE: APPENDIX OTHR DR: Nadya cohen or Family Physician Luis Enrique Orellana MD,Nikos Jenkins MD, MDORDERED: PATHGM3, # OF BLOCKS/2, # OF SLIDES/2 TISSUES: A. APPENDIX, NOS CLIN ICAL HISTORY INCIDENTAL APPENDECTOMY. FINAL MICROSCOPIC DIAGNOSIS VERMIF ORM APPENDIX, INCIDENTAL APPENDECTOMY: VERMIFORM APPENDIX WITH NO PATHOLOGI C CHANGE. CPT: 55805 GROSS DESCRIPTION The specimen is received in [...] 09/09/182000 END OF REPORT - XR ABDOMEN [id number] 09:19:00 FAX: Luis Enrique Daniel MD [phone] [place]: St: ADM Name: LAVONNE BAEZA [facility] : [birth year] Age/S: 57/M [address] Unit #: [id number] Loc: [address] [place] [address] Phys: Luis Enrique Orellana MD Acct: [id number] Dis Date: Status: ADM IN PHONE #: [phone] Exam Date: 09/09/2018906 FAX #: [phone] Reason: COMPARE TO LAST SCAN EXAMS: CPT CODE: [id number] XR ABDOMEN 2V 83632 EXAM: - XR ABDOMEN 2V HISTORY: Partial small bowel obstruction Location code:C3 COMPARISON: 09/07/2018 and 08/13/2018 FINDINGS: 3 vie ws of the abdomen are provided. Enteric tube tip projects about the body of the stomach. There is distended loops of small bowel up to 4.5 cm with air-fluid levels. This is progressed since prior radiograph. [...] Signed Report FAX: Luis Enrique Daniel MD [phone] [place]: St: ADM------- Name: LAVONNE CONTRERASwood : [birth year] Age/S: 57/M [address] Unit #: [id number] Loc: [address] [place] [address] Phys: Luis Enrique Orellana MD Acct: [id number] Dis Date: Status: ADM IN PHONE #: Exam Date: 09/09/2018906 FAX #: [phone] Reason: COMPARE TO LAST SCAN EXAMS: CPT CODE: [id number] XR ABDOMEN 2V 05911 <Continued> Orig Print D/T: S: 09/09/2018 (0922) PAGE 2 Signed Report COMPREHENSIVE METABOLIC [id number] 06:54:00* Test Item Value Reference Range Interpretation [...] code = ALKP) 141 U/L 38-126 H [id number] 06:54:00* Test Item Value Reference Range Interpretation Comments MAGNESIUM (test code = MAG) 1.9 mg/dL 1.6-2.3 N CBC W/AUTO [id number] 06:23:00* Test Item Value Reference Range Interpretation [...] 0.03 x10 3/uL 0.0-0.1 N COMPREHENSIVE METABOLIC [id number] 08:06:00* Test Item Value Reference Range Interpretation [...] code = ALKP) 135 U/L 38-126 H [id number] 08:06:00* Test Item Value Reference Range Interpretation Comments PHOSPHOROUS (test code = PHOS) 2.2 mg/dL 2.5-4.5 L [id number] 08:06:00* Test Item Value Reference Range Interpretation Comments MAGNESIUM (test code = MAG) 2.2 mg/dL 1.6-2.3 N CBC W/AUTO [id number] 07:28:00* Test Item Value Reference Range Interpretation [...] x10 3/uL 0.0-0.1 N - XR ABDOMEN [id number] 23:38:00 FAX: Luis Enrique Daniel MD [phone] [place]: St: [facility] FAX: Suresh Dinero Name: LAVONNE CONTRERAS : 1960 Age/S: 57/M [address] Unit #: [id number] Loc: [address] [place] [address] Phys: Luis Enrique Orellana MD Acct: [id number] Dis Date: Status: ADM IN PHONE #: [phone] Exam Date: 09/07/20182249 FAX #: [phone] Reason: f/u ileus. s/p bowel resection for sbo EXAMS: CPT CODE: [id number] XR ABDOMEN 2V 78630 HISTORY: Follow-up Location: C3 COMPARISON: 9 FINDINGS: Nasogastric tube is noted with tip overl flory the stomach. There is scattered gas throughout the colon. There hav e been interval postoperative changes of the ventral skin arik noted. Previously seen dilated loops of small bowel have improved. IMPRESSION: 1. Decrease in small bowel distention. 2. Nasogastric tube with tip overlying the stomach. Electron ically Signed by Tony Islas MD on 09/07/2018 at 4756 Re ported and signed by: Tony Islas MD CC: Luis Enrique Orellana MD ; Suresh Gonzalez MD Technologist: Joanie Boswell Trnmird Date/Time/By: 09/07/2018 (3721) : By: Rafia [email or web address] PAGE 1 Signed Report FAX: Luis Enrique Daniel MD [phone] [place]: St: AD M FAX: Suresh Dinero Name: LAVONNE CONTRERAS : 1960 Age/S: 57/M [address] Unit #: [id number] Loc: C.[address] [place] [address] Phys: Luis Enrique Orellana MD Acct: [id number] Dis Date: Status: ADM IN PHONE #: [phone] Exam Date: 09/07/2018 2250 FAX #: [phone] Reason: f/u ileus. s/p bowel resection for sbo EXAMS: CPT CODE: [id number] XR ABDOMEN 2V 19564 <Continued> Orig Print D/T: S: 09/07/2018 (5202) PAGE 2 Signed Report ACUTE HEPATITIS [id number] 18:00:00* Test Item Value Reference Range Interpretation [...] code = HCVAB) NEGATIVE NEGATIVE ACUTE HEPATITIS [id number] 17:17:00* Test Item Value Reference Range Interpretation Comments HEP A AB TOTAL ONLY (test code = HAVAB) NEGATIVE HEP A AB IGM QUAL (test code = HAVMAB) NEGATIVE NEGATIVE AG HEPATITIS B SURFACE (test code = HBSAG) NEGATIVE NEGATIVE HEP B CORE AB IGM QL (test code = HBCMAB) NEGATIVE NEGATIVE AB HEPATITIS C (test code = HCVAB) NEGATIVE ACUTE HEPATITIS [id number] 17:07:00* Test Item Value Reference Range Interpretation Comments HEP A AB TOTAL ONLY (test code = HAVAB) NEGATIVE HEP A AB IGM QUAL (test code = HAVMAB) NEGATIVE AG HEPATITIS B SURFACE (test code = HBSAG) NEGATIVE NEGATIVE HEP B CORE AB IGM QL (test code = HBCMAB) NEGATIVE AB HEPATITIS C (test code = HCVAB) NEGATIVE - US ABDOMEN [id number] 10:37:00 FAX: Alessandro Latham MD [phone] [place]: St: ADM FAX: Katy Pro MD [phone] Name: DIANELAVONNE [facility] : 1960 Age/S: 57/M [address] Unit #: [id number] Loc: [address] [place] [address] Phys: Katy Haines MD Acct: [id number] Dis Date: Status: ADM IN PHONE #: [phone] Exam Date: 09/04/2018 1023 FAX #: [phone] Reason: ABDOMINAL PAIN WITH T RANSAMINITIS EXAMS: CPT CODE: [id number] US ABDOMEN COMPLETE 85449 Ultrasound abdomen History: ABDOMINAL PAIN WITH TR [...] is within normal limits in diameter. The pancr eas is not adequately demonstrated. The visualized portions of the inferi or vena cava appear unremarkable. IMPRESSION: The gallbladder is absent. This is consistent with a given histo ry of previous cholecystectomy. There is a small hepa tic and left renal cyst. Otherwise unremarkable exam. at 1037 Reported and signed by: Irving Mathews MD PAGE 1 Signed Report (CONTINUED) FAX: Alessandro Olson MD [phone] [place]: [facility]: ADM FAX: Katy Pro MD [phone] Name: LAVONNE CONTRERAS [facility] : 1960 Age/S: 57/M [address] Unit #: [id number] Loc: [address] [place] [address] Phys: Katy Haines MD ct: [id number] Dis Date: Status: ADM IN PHONE #: [phone] Exam Date: 09/04/2018 1023 FAX #: [phone] Reason: ABDOMINAL PAIN WITH TRANSAMINITIS EXAMS: CPT CODE: [id number] US ABDOMEN COMPLETE [id number] < Continued> CC: Alessandro Galindo MD; Katy Haines MD Technologist: Keiry Crowe RDMS Trnscrd Date/Time/By: 09/04/2018 (1037) : By: Jesús PAGE 2 Signed Report FAX: Alessandro Latham MD [phone] [place]: [facility]: ADM FAX: Katy Pro MD [phone] Name: LAVONNE CONTRERAS : 1960 Age/S: 57/M [address] Unit #: [id number] Loc: C.[address] [place] [address] Phys: Katy Haines MD Acct: [id number] Dis Date: Status: ADM IN PHONE #: [phone] Exam Date: 09/04/2018 1023 FAX #: [phone] Reason: ABDOMINAL PAIN WITH TRANSAMINITIS EXAMS: CPT CODE: [id number] ABDOMEN COMPLETE [id number] < Continued> Orig Print D/T: S: 09/04/2018 (1040) PAGE 3 Signed Report LIVER FUNCTION [id number] 13:35:00* Test Item Value Reference Range Interpretation [...] ALKP) 134 U/L 38-126 H GAMMA GLUTAMYL [id number] 13:35:00* Test Item Value Reference Range Interpretation Comments GAMMA GLUTAMYL TRANSPEPTIDASE (test code = GGT) 294 U/L 12-58 H [id number] 13:35:00* Test Item Value Reference Range Interpretation Comments MAGNESIUM (test code = MAG) 2.1 mg/dL 1.6-2.3 N LIVER FUNCTION [id number] 13:34:00* Test Item Value Reference Range Interpretation [...] ALKP) 134 U/L 38-126 H GAMMA GLUTAMYL [id number] 13:34:00* Test Item Value Reference Range Interpretation Comments GAMMA GLUTAMYL TRANSPEPTIDASE (test code = GGT) U/L 12-58 [id number] 13:34:00* Test Item Value Reference Range Interpretation Comments MAGNESIUM (test code = MAG) mg/dL 1.6-2.3 BASIC METABOLIC [id number] 08:02:00* Test Item Value Reference Range Interpretation [...] code = CA) 9.1 mg/dL 8.4-10.2 N [id number] 08:02:00* Test Item Value Reference Range Interpretation Comments MAGNESIUM (test code = MAG) 2.1 mg/dL 1.6-2.3 N CBC W/AUTO [id number] 07:56:00* Test Item Value Reference Range Interpretation [...] PLATELET CLUMPS SEEN NOR MAL CBC W/AUTO [id number] 07:35:00* Test Item Value Reference Range Interpretation [...] 0.03 x10 3/uL 0.0-0.1 N CBC W/AUTO [id number] 07:35:00* Test Item Value Reference Range Interpretation [...] 3/uL 0.0-0.1 N - XR ABDOMEN 1 [id number] 06:07:00 FAX: Martin Brady MD [place]: St: [facility] FAX: Nikos Arizmendi MD [phone] Name: LAVONNE CONTRERAS [facility] : 1960 Age/S: 57/M [address] Unit #: [id number] Loc: C[address] [place] [address] Phys: Nikos Barney MD Acct: [id number] Dis Date: Status: ADM IN PHONE #: [phone] Exam Date: 09/03/2018539 FAX #: [phone] Reason: SBO EXAMS: CPT CODE: [id number] XR ABDOMEN 1 V 02172 EXAM: Abdomen 1 view LOCATION: C3 HISTORY: [...] Nikos Barney MD Technologist: RT Armand (Joe) Trnmird Date/Time/By: 09/03/2018 (0607) : By: [email or web address] PAGE 1 Signed Report FAX: Martin Brady MD [facility] s: St: ADM FAX: Nikos Arizmendi MD [phone] Name: LAVONNE CONTRERAS [facility] : 1960 Ag e/S: 57/M [address] Unit #: [id number] Loc: [address] [place] [address] Phys: Nikos Barney MD Acct: [id number] Dis Date: Status: ADM IN PHONE #: [phone] Ex am Date: 09/03/2018 05 FAX #: [phone] Reaso n: SBO EXAMS: CPT CODE: [id number] XR ABDOMEN 1 V 50787 <Continued> Orig Print D/T: S: 09/03/2018 (0611) [...] CHD)40-59mg/dL: Borderline Risk LDL Cholesterol<100mg/dL: Desirable LDL-C xmdjkhqvwxryg331-981jh/dL: Borderline High Risk LDL-C oxwlvgneqwxbo152- 189mg/dL: High risk LDL-C concentration HDL-LDL Cholesterol is [...] CHD)40-59mg/dL: Borderline Risk LDL Cholesterol<100mg/dL: Desirable LDL-C kqtaoquciqwcy248-090gw/dL: Borderline High Risk LDL-C lynxvthcmzsdo809- 189mg/dL: High risk LDL-C concentration HDL-LDL Cholesterol is affected by a number of factors suchas smoking, age and sex.~~~~~~~~~~~~~~~~~~~~~~~~~~~~~~~~~~~~~~~~~~~~~~~~~~~~~~~~~~~~ BASIC METABOLIC [id number] 18:08:00* Test Item Value Reference Range Interpretation [...] = CA) 10.9 mg/dL 8.4-10.2 H PROTHROMBIN [id number] 18:03:00* Test Item Value Reference Range Interpretation [...] with Food and Drug Administrationrecommendations. THROMBOPLASTIN TIME [id number] 18:03:00* Test Item Value Reference Range Interpretation Comments THROMBOPLASTIN TIME PARTIAL (test code = PTT) 18.2 SECONDS 23.4-37. 0 L Therapeutic Range for Heparin EFFECTIVE 11/12/12 Heparin IU/mL aPTT Seconds0.3 64.30.7 88.8 CBC W/AUTO [id number] 18:01:00* Test Item Value Reference Range Interpretation [...] 0.04 x10 3/uL 0.0-0.1 N TROPONIN I [id number] 17:55:00* Test Item Value Reference Range Interpretation [...] only if similarmethodology is used. CBC W/AUTO [id number] 08:40:00* Test Item Value Reference Range Interpretation [...] (test code = PLTMORPH) NORMAL NORMAL DIFFERENTIAL [id number] 08:40:00* Test Item Value Reference Range Interpretation [...] OVAL) 1+ NONE SEEN A COMPREHENSIVE METABOLIC [id number] 06:04:00* Test Item Value Reference Range Interpretation [...] code = ALKP) 107 U/L 38-126 N [id number] 06:04:00* Test Item Value Reference Range Interpretation Comments MAGNESIUM (test code = MAG) 2.2 mg/dL 1.6-2.3 N COMPREHENSIVE METABOLIC [id number] 05:59:00* Test Item Value Reference Range Interpretation [...] code = ALKP) 107 U/L 38-126 N [id number] 05:59:00* Test Item Value Reference Range Interpretation Comments MAGNESIUM (test code = MAG) mg/dL 1.6-2.3 CBC W/AUTO [id number] 05:47:00* Test Item Value Reference Range Interpretation [...] 0.04 x10 3/uL 0.0-0.1 N CBC W/AUTO [id number] 05:47:00* Test Item Value Reference Range Interpretation [...] 0.04 x10 3/uL 0.0-0.1 N CBC W/AUTO [id number] 05:44:00* Test Item Value Reference Range Interpretation [...] 3/uL 0.0-0.1 N - XR ABDOMEN 1 [id number] 04:50:00 FAX: Stormy Hernandez MD [phone] [place]: St: ADM FAX: Henry Kunz [phone] Name: LAVONNE CONTRERAS [facility] : 1960 Age/S: 57/M [address] Unit #: [id number] Loc: [address] [address] Phys: Henry Smith MD Acct: [id number] Dis Date: Status: ADM IN PHONE #: [phone] Exam Date: 08/15/2018251 FAX #: [phone] Reason: r/o sbo EXAMS: CPT CODE: [id number] XR ABDOMEN 1 V 67150 HISTORY: Male, 57 years of age with suspected small bowel obstruction, abdominal distention Location code: R16 EXAM: ABDOMEN, ONE VIEW COMPARISON: Correlation made with sm all bowel series performed yesterday and the abdomen [...] Corrales MD; Lissa Smith Technologist: JORGE ALBERTO BOWEN RT (R); Patricia Tucker [facility] Date/Time/By: 08/15/2018 (0849) : By: SaludW PAGE 1 Signed Report FAX: Stormy Hernandez MD [phone] [place]: [facility]: ADM FAX: Henry Kunz [phone] Name: LAVONNE CONTRERAS [facility] : 1960 Age/S: 57/M [address] Unit #: [id number] Loc: [address] [address] Phys: Henry Smith MD Acct: [id number] Dis Date: Status: ADM IN PHONE #: [phone] Exam Date: 08/15/2018251 FAX #: [phone] Reason: r/o sbo EXAMS: CPT CODE: [id number] XR ABDOMEN 1 V 14936 < Continued> Orig Print D/T: S: 08/15/2018 (3989) PAGE 2 Signed Report - XR SMALL [id number] 14:16:00 FAX: Sage Noland [place]: [facility]: ADM FAX: Stormy Hernandez MD [phone] Name: LAVONNE CONTRERAS [facility] : 1960 Age/S: 57/M [address] Unit #: [id number] Loc: [address] [address] Phys: Sage Noland MD Acct: [id number] Dis Date: Status: ADM IN PHONE #: [phone] Exam Date: 08/14/2018 1310 FAX #: [phone] Reason: SBO EXAMS: CPT CODE: [id number] XR SMALL BOWEL 33472 C3 TIME OF STUDY: 08/14/2018 REASON FOR EXAM: SBO COMPARISON: CT 08/13/2018. Small bow el followthrough was carried out for 3 hours [...] Noland MD; Stormy Corrales MD Technologist: Dilcia Menard Trnscrd Date/Time/By: 08/14/2018 (2686) : By: [email or web address] PAGE 1 Signed Report FAX: Sage Dubose [place]: St: ADM FAX: Stormy Hernandez MD [phone] Name: LAVONNE CONTRERAS [facility] : 1960 Age/S: 57/M [address] Unit #: [id number] Loc: [address] [place] [address] Phys: Sage Noland MD Acct: [id number] Dis Date: Status: ADM IN PHONE #: [phone] Exam Date: 08/14/2018 1310 FAX #: [phone] Reason: SBO EXAMS: CPT CODE: [id number] XR SMALL BOWEL 77422 < Continued> Orig Print D/T: S: 08/14/2018 (6449) PAGE 2 Signed Report LIPID PROFILE (CORONARY [...] CHD)40-59mg/dL: Borderline Risk LDL Cholesterol<100mg/dL: Desirable LDL-C nmckntteaguon768-485co/dL: Borderline High Risk LDL-C pmhtgtxymvjgn768- 189mg/dL: High risk LDL-C concentration HDL-LDL Cholesterol is [...] CHD)40-59mg/dL: Borderline Risk LDL Cholesterol<100mg/dL: Desirable LDL-C sicyzcsqmmwzq363-815xy/dL: Borderline High Risk LDL-C jfxgnfsybwfev075- 189mg/dL: High risk LDL-C concentration HDL-LDL Cholesterol is affected by a number of factors suchas smoking, age and sex.~~~~~~~~~~~~~~~~~~~~~~~~~~~~~~~~~~~~~~~~~~~~~~~~~~~~~~~~~~~~ - CT ABD PELVIS W/[id number] 22:12:00 [place]: St: ADM Name: LAVONNE HEALY [facility] : 2 Age/S: 57/M [address] Unit: [id number] Loc: [place] [address] Phys: Jeanne Urena Acct: [id number] Dis Date: Status: ADM IN PHONE #: [phone] Exam Date: 08/13/20182153 FAX #: [phone] Reason: abd pain EXAMS: CPT CODE: [id number] CT ABD PELVIS W/CONT 93148 EXAM: CT ABDOMEN AND PELVIS WITH I V CONTRAST Location code: R16 HISTORY: Male, 57 [...] Stomach is PAGE 1 Signed Report (CONTINUED) [place]: St: ADM Name: LAVONNE CONTRERAS [place] : 1960 Age/S: 57/M [address] Unit: [id number] Loc: [place] [address] Phys: RomelJeanne Acct: [id number] Dis Date: Status: ADM IN PHONE #: [phone] Exam Date: 08/13/20182153 FAX #: [phone] Reason: abd pain EXAMS: CPT CODE: [id number] CT ABD PELVIS W/CONT 51970 <Continued> unremarkable. Vascular: Atherosclerotic calcifications are seen [...] Patricia Tucker; TRA VELAZQUEZ Trnscrd Dt/Tm: 08/13/2018 (2211) t.[email or web address] Orig Print D/T: S: 08/13/2018 (2215 PAGE 2 Signed Report UA RFLX MICR CULT IF [id number] 18:52:00* Test Item Value Reference Range Interpretation [...] between 0.5-2.0 NG/ML are obtained. BASIC METABOLIC [id number] 18:28:00* Test Item Value Reference Range Interpretation [...] CA) 10.4 mg/dL 8.4-10.2 H LIVER FUNCTION [id number] 18:28:00* Test Item Value Reference Range Interpretation [...] code = ALKP) 118 U/L 38-126 N [id number] 18:28:00* Test Item Value Reference Range Interpretation Comments LIPASE (test code = LIP) 259 U/L 23-300 N BASIC METABOLIC [id number] 18:27:00* Test Item Value Reference Range Interpretation [...] CA) 10.4 mg/dL 8.4-10.2 H LIVER FUNCTION [id number] 18:27:00* Test Item Value Reference Range Interpretation [...] code = ALKP) 118 U/L 38-126 N [id number] 18:27:00* Test Item Value Reference Range Interpretation Comments LIPASE (test code = LIP) U/L 23-300 CBC W/AUTO [id number] 18:16:00* Test Item Value Reference Range Interpretation [...] x10 3/uL 0.0-0.1 N - XR ABDOMEN [id number] 18:07:00 [place]: St: PRE Name: LAVONNE BAEZA : [birth year] Age/S: 57/M [address] Unit #: [id number] Loc: [place] [address] Phys: Donal Hays Acct: [id number] Dis Date: Status: PRE ER PHONE #: [phone] Exam Date: 08/13/2018 1705 FAX #: [phone] Reason: sbo, pain EXAMS: CPT CODE: [id number] XR ABDOMEN 2V 98534 C3 TIME OF STUDY: 08/13/2018 4:21 PM [...] : By: [email or web address] PAGE 1 Signed Report [place]: St: PRE Name: LAVONNE CONTRERAS : 1960 Age/S: 57/M [address] Unit #: [id number] Loc: [place] [address] Phys: Donal Hays Acct: [id number] Dis Date: Status: PRE ER PHONE #: [phone] Exam Date: 08/13/2018 1705 FAX #: [phone] Reason: sbo, pain EXAMS: CPT CODE: [id number] XR ABDOMEN 2V 58021 <Continued> Orig Print D/T: S: 08/13/2018 (8824) PAGE 2 Signed Report LACTIC ACID [id number] 17:36:00* Test Item Value Reference Range Interpretation Comments LACTIC ACID POC (test code = LACTP) 1.74 mmol/L 0.7-2.0 N - XR ABDOMEN 1 [id number] 05:49:00 FAX: Maria Teresa Lynne MD [phone] [place]: St: ADM FAX: Nikos Arizmendi MD [phone] Name: LAVONNE CONTRERAS [facility] : 1960 Age/S: 57/M [address] Unit #: [id number] Loc: [address] [place] [address] Phys: Nikos Barney MD Acct: [id number] Dis Date: Status: ADM IN PHONE #: [phone] Exam Date: 08/13/2018 0505 FAX #: [phone] Reason: SBO EXAMS: CPT CODE: [id number] XR ABDOMEN 1 V 05390 Exam: KUB. Location: F6 History: SBO Findings: A supine view of the abdomen demonstrates a few l oops of slightly dilated small intestine the mid and upper abdomen, unchan ged in appearance from the previous study. The large and small intestine a re normal in caliber. No organomegaly, abnormal masses or calcifications are seen. No pneumatosis or free air is present. Impression : Stable exam. at 0549 Reported and signed by: Cindy Randle ncesco CC: Maria Teresa Gottlieb MD; Nikos Barney MD Technologist: RT Davina Acuna) Jack Date/Time/By: 08/13/2018 (0549) : By: Tanna PAGE 1 Signed Report FAX: Maria Teresa Solano MD [phone] [place]: St: ADM FAX: Nikos Arizmendi MD [phone] Name: LAVONNE CONTRERAS [facility] : 1960 Age/S: 57/M [address] Unit #: [id number] Loc: [address] [place] [address] Phys: Nikos Barney MD Acct: [id number] Dis Date: Status: ADM IN PHONE #: [phone] Exam Date: 08/13/2018 050 FAX #: [phone] Reason: SBO EXAMS: CPT CODE: [id number] XR ABDOMEN 1 V 56620 < Continued> Orig Print D/T: S: 08/13/2018 (0552) PAGE 2 Signed Report - XR ABDOMEN 1 [id number] 05:30:00 FAX: Maria Teresa Lynne MD [phone] [place]: St: ADM FAX: Nikos Arizmendi MD [phone] Name: LAVONNE CONTRERAS [facility] : 1960 Age/S: 57/M [address] Unit #: [id number] Loc: [address] [place] [address] Phys: Nikos Barney MD Acct: [id number] Dis Date: Status: ADM IN PHONE #: [phone] Exam Date: 08/12/2018509 FAX #: [phone] Reason: SBO EXAMS: CPT CODE: [id number] XR ABDOMEN 1 V 17667 Exam: KUB. Location: F6 History: SBO COMPARISON: 08/11/2018 Findings: A supine vie w of the abdomen demonstrates no changes occurred in the bowel dilatation. No organomegaly, abnormal masses or calcifications are seen. No pneumatos is or free air is present. Impression: Stable abdomen. at 0530 Reported and signed by: Michael Randle CC: Maria Teresa Gottlieb MD; Nikos Barney MD Technologist: YANA HSEARER RT (R) Trnscrd Date/Time/By: (0530) : By: TannaFC PAGE 1 Signed Report FAX: Maria Teresa Lynne MD [place]: St: [facility] FAX: Nikos Arizmendi MD [phone] -- N alexandra: LAVONNE CONTRERAS [facility] : 1960 Age/S: 57/M [address] Unit #: [id number] Loc: [address] [place] [address] Phys: Hernan Barney MD Acct: [id number] Dis D ate: Status: ADM IN PHONE #: Exam Date: 08/12/2018509 FAX #: [phone] Reason: SBO EXAMS: CPT CODE: [id number] XR ABDOMEN 1 V 52973 <Continued> Orig Print D/T: S: 08/12/2018 (1580) PAGE 2 Signed Report BASIC METABOLIC [id number] 07:19:00* Test Item Value Reference Range Interpretation [...] code = CA) 9.1 mg/dL 8.4-10.2 N [id number] 07:19:00* Test Item Value Reference Range Interpretation Comments PHOSPHOROUS (test code = PHOS) 3.6 mg/dL 2.5-4.5 N [id number] 07:19:00* Test Item Value Reference Range Interpretation Comments MAGNESIUM (test code = MAG) 2.2 mg/dL 1.6-2.3 N BASIC METABOLIC [id number] 07:18:00* Test Item Value Reference Range Interpretation [...] code = CA) 9.1 mg/dL 8.4-10.2 N CJJVFEFLGWP6022-13-20 07:18:00* Test Item Value Reference Range Interpretation Comments PHOSPHOROUS (test code = PHOS) mg/dL 2.5-4.5 [id number] 07:18:00* Test Item Value Reference Range Interpretation Comments MAGNESIUM (test code = MAG) mg/dL 1.6-2.3 CBC W/AUTO [id number] 07:05:00* Test Item Value Reference Range Interpretation [...] 3/uL 0.0-0.1 N - XR ABDOMEN 1 [id number] 05:02:00 FAX: Maria Teresa Lynne MD [phone] [place]: St: ADM FAX: Nikos Arizmendi MD [phone] Name: LAVONEN CONTRERAS [facility] : 1960 Age/S: 57/M [address] Unit #: [id number] Loc: [address] [place] [address] Phys: Nikos Barney MD Acct: [id number] Dis Date: Status: ADM IN PHONE #: [phone] Exam Date: 08/11/2018331 FAX #: [phone] Reason: SBO EXAMS: CPT CODE: [id number] XR ABDOMEN 1 V 64101 Location: U19. ABDOMEN, 1 VIEW HISTORY:SBO FINDINGS: The s mall bowel loops are distended and organized. Air is also noted throughou t the colon. Arthrodesis with a single screw of the left SI joint. Mild lower lumbar spondylosis. IMPRESSION: Continue d small bowel obstruction possibly partial, similar to prior CT on 9. Nasogastric tube within the stomach. E lectronically Signed by Adrienne Tucker MD on at 0502 Reported and signed by: Adrienne Carballo MD CC: Maria Teresa Gottlieb MD; Nikos Barney MD Technologist: JORGE ALBERTO BOWEN RT (R); CHRISTA GOLDENmiteresa Date/Time/By: 08/11/2018 (6835) : By: [email or web address] PAGE 1 Signed Report FAX: Maria Teresa Lynne MD [phone] [place]: St: ADM FAX: Nikos Arizmendi MD [phone] Name: DIANELAVONNE [facility] Luis Eduardo baker : 1960 Age/S: 57/M [address] Unit #: [id number] Loc: [address] [place] [address] Phys: Nikos Barney MD Acct: [id number] Dis Date: Status: ADM IN PHONE #: [phone] Exam Date: 08/11/2018331 FAX #: [phone] Reason: SBO EXAMS: CPT COD E: [id number] XR ABDOMEN 1 V 94614 <Continued> Orig Print D/T: S: 08/11/2018 (7955) PAGE 2 Signed Report - XR CHEST 1 [id number] 03:21:00 FAX: Maria Teresa Lynne MD [phone] [place]: St: ADM Name: LAVONNE BAEZA : [birth year] Age/S: 57/M [address] Unit #: [id number] Loc: [address] [place] [address] Phys: Maria Teresa Gottlieb MD Acct: [id number] Dis Date: Status: ADM IN PHONE #: [phone] Exam Date: 08/11/2018257 FAX #: [phone] Reason: NGT INSERTION VERIFICATION EXAMS: CPT CODE: [id number] XR CHEST 1 V 70336 EXAM: - XR CHEST 1 V HISTORY: [...] d Report FAX: Maria Teresa Lynne MD [place]: St: ADM Name: LAVONNE CONTRERAS [facility] Luis Eduardo baker : 1960 Age/S: 57/M [address] Unit #: [id number] Loc: [address] [place] [address] Phys: Maria Teresa Gottlieb MD Acct: [id number] Dis Date: Status: ADM IN PHONE #: [phone] Exam Date: 08/11/2018 0258 FAX #: [phone] Reason: NGT INSERTION VERIFICATION EXAMS: CPT COD E: [id number] XR CHEST 1 V 01669 <Continued> Trnscrd Date/Time/By: 08/11/2018 (0321) : By: [email or web address] PAGE 2 Signed Report UA RFLX MICR CULT IF [id number] 01:18:00* Test Item Value Reference Range Interpretation [...] between 0.5-2.0 NG/ML are obtained. BASIC METABOLIC [id number] 00:15:00* Test Item Value Reference Range Interpretation [...] CA) 9.3 mg/dL 8.4-10.2 N LIVER FUNCTION [id number] 00:15:00* Test Item Value Reference Range Interpretation [...] code = ALKP) 95 U/L 38-126 N [id number] 00:15:00* Test Item Value Reference Range Interpretation Comments LIPASE (test code = LIP) 133 U/L 23-300 N PROTHROMBIN [id number] 00:12:00* Test Item Value Reference Range Interpretation [...] with Food and Drug Administrationrecommendations. CBC W/AUTO [id number] 00:00:00* Test Item Value Reference Range Interpretation [...] 3/uL 0.0-0.1 N - CT ABD PELVIS W/[id number] 23:42:00 [place]: MC St: REG Name: LAVONNE HEALY : 2 Age/S: 57/M [address] Unit: [id number] Loc: [place] [address] Phys: Jim Brito MD Acct: [id number] Dis Date: Status: REG ER PHONE #: Exam Date: 08/10/2018 2320 FAX #: [phone] Reason: abd pain EXAMS: CPT CODE: [id number] CT ABD PELVIS W/CONT 43192 Exam: CT abdomen and pelvis with contrast. [...] unremarkable exam. PAGE 1 Signed Report (CONTINUED) [place]: St: REG Name: LAVONNE CONTRERAS [facility] : 1960 Age/S: 57/M [address] Unit: [id number] Loc: [place] [address] Phys: Jim Brito MD Acct: [id number] Dis Date: Status: REG ER PHONE #: [phone] Exam Date: 7 2966 FAX #: [phone] Reason: abd pain EXAMS: CPT CODE: [id number] CT ABD PELVIS W/CONT 18836 <Continued> at 2342 Reported and signed by: Michael Randle CC: Technologist: Monica Bobo Trnscrd Dt/Tm: 08/10/2018 (1294) Puneet Orig Print D/T: S: 08/10/2018 (2696 PAGE 2 Signed Report BEDSIDE [id number] 23:25:00* Test Item Value Reference Range Interpretation Comments BEDSIDE CREATININE (test code = CREATBED) 0.9 mg/dL 0.66-1.25 N LACTIC ACID [id number] 23:13:00* Test Item Value Reference Range Interpretation Comments LACTIC ACID POC (test code = LACTP) 1.67 mmol/L 0.7-2.0 N
[2020-04-03] MEDS ORDERED: ONDANSETRON HCL INJ 2MG/ML 2ML 2 MG/ML VIAL ONE (11:40)
[2020-04-03] MEDS ORDERED: HYDROCODONE/APAP 5MG-325MG TAB ONE (11:40)
[2020-04-03] MEDS ORDERED: MORPHINE SULFATE 2 MG/ML SYR 1ML IV STA (11:44)
[2020-04-03] MEDS ORDERED: DIPHENHYDRAMINE HCL INJ 50 MG/ML VIAL IV ONE (11:45)
[2020-04-03] MEDS ORDERED: MORPHINE SULFATE INJ 4 MG/ML INJ 1ML ONE (11:54)
[2020-04-03] MEDS ORDERED: DIPHENHYDRAMINE HCL INJ 50 MG/ML VIAL ONE (11:54)
[2020-04-03] MEDS ORDERED: HYDROCODONE/APAP 5MG-325MG TAB PO ONE (12:00)
[2020-04-03] MEDS ORDERED: LISINOPRIL10 MG PO (12:32)
--- NOTE | 2020-04-03 12:40 | Emergency Department Note ---
History of Present Illnes History of Present Illness Chief Complaint: Genitourinary History of Present Illness This is a 59 year old male Chief Complaint Comment Reports that Dr. Don told him to come here and get his gutierrez flushed as he is having pain and leaking around the head of the penis. Left testicle is red and swollen. Pt has sutures in the base of the scrotum. . Historian: Patient, Family Member Arrival Mode: Car Onset (how long ago): day(s) (2) Location: lower abdomed Quality: dull Radiation: Denies non-radiation, Denies back, Denies neck, Denies extremity, Denies abdomen, Denies periumbilical, Denies flank, Denies proximal, Denies distal, Denies other Severity: moderate Duration (how long): day(s) (2) Timing of current episode: constant Progression: unchanged Chronicity: new Context: Denies recent illness, Denies recent surgery, Denies recent immobilization, Denies recent travel, Denies trauma/injury, Denies new medications, Denies hx of DVT/PE, Denies non-compliance w/ medications, Denies other Relieving factors: none Exacerbating factors: none Associated symptoms: Denies denies other symptoms, Denies confusion, Denies chest pain, Denies cough, Denies diaphoresis, Denies fever/chills, Denies headaches, Denies loss of appetite, Denies malaise, Denies nausea/vomiting, Denies rash, Denies seizure, Denies shortness of breath, Denies syncope, Denies weakness, Denies other Treatments prior to arrival: none Past Medical/Family History Physician Review I have reviewed the patient's past medical and family history. Any updates have been documented here. Past Medical History Recent Fever: No Clinical Suspicion of Infectio: No New/Unexplained Change in Ment: No Past Medical History: Hypertension Past Surgical History: Cholecysctectomy, Appendectomy, T&A, Colon Resection Other Surgery: Bladder surgery Social History Smoking Cessation: Never Smoker Counseling Performed: No Alcohol Use: None Any Illegal Drug Use: No Physically hurt or threatened: No Other Any Pre-Existing Lines (PICC,: No Review of Systems Review of Systems Constitutional: Reports no symptoms EENTM: Reports no symptoms; Denies as per HPI, Denies eye pain, Denies blurred vision, Denies tearing, Denies double vision, Denies ear pain, Denies ear discharge, Denies nose pain, Denies nose congestion, Denies throat pain, Denies throat swelling, Denies mouth pain, Denies mouth swelling, Denies other Cardiovascular: Reports no symptoms; Denies as per HPI, Denies chest pain, Denies edema, Denies palpitations, Denies syncope, Denies other Respiratory: Reports no symptoms; Denies as per HPI, Denies change in phlegm color, Denies chest congestion, Denies cough, Denies hemoptysis, Denies excessive phlegm production, Denies pain on inspiration, Denies pain with cough, Denies dyspnea, Denies dyspnea on exertion, Denies snoring, Denies stridor, Denies wheezing, Denies other Gastrointestinal: Reports no symptoms; Denies as per HPI, Denies abdominal pain, Denies constipation, Denies diarrhea, Denies nausea, Denies vomiting, Denies other Genitourinary: Reports as per HPI Musculoskeletal: Reports no symptoms Integumentary: Reports no symptoms; Denies as per HPI, Denies change in color, Denies change in hair/nails, Denies dryness, Denies lesions, Denies lumps, Denies rash, Denies poor turgor, Denies ecchymosis, Denies other Neurological: Reports no symptoms; Denies as per HPI, Denies headache, Denies numbness, Denies paresthesia, Denies pre-existing deficit, Denies seizure, Denies tingling, Denies tremors, Denies weakness, Denies other Psychological: Reports no symptoms Endocrine: Reports no symptoms Hematological/Lymphatic: Reports no symptoms Physical Exam Related Data Allergies: Coded Allergies: morphine (Verified Adverse Reaction, Mild, causes itching, 04/03/20) pt can take it if he gets benadryl with the morphine. Triage Vital Signs Vital Signs Date Time Temp Pulse Resp B/P (MAP) Pulse Ox O2 Delivery O2 Flow Rate FiO2 04/03/20 11:15 98.1 73 18 133/72 100 Room Air Vital signs reviewed: Yes Physical Exam CONSTITUTIONAL Constitutional: Present well-developed, Present well-nourished HENT HENT: Present normocephalic, Present atraumatic, Present oropharynx clear/moist, Present nose normal HENT L/R: Present left ext ear normal, Present right ext ear normal EYES Eyes: Reports PERRL, Reports conjunctivae normal, Reports EOM normal, Reports lids normal, Reports left eye discharge, Reports right eye discharge, Reports scleral icterus, Reports other NECK Neck: Present ROM normal; Absent supple, Absent thyromegaly, Absent tracheal deviation, Absent stridor, Absent JVD, Absent cervical adenopathy, Absent carotid bruit, Absent other PULMONARY Pulmonary: Present effort normal, Present breath sounds normal; Absent respiratory distress, Absent rales, Absent rhonchi, Absent chest tenderness, Absent other CARDIOVASCULAR Cardiovascular: Present regular rhythm, Present heart sounds normal, Present capillary refill normal, Present normal rate; Absent irregular rhythm, Absent intact distal pulses, Absent tachycardia, Absent bradycardia, Absent murmur, Absent gallop, Absent friction rub, Absent palpable pulses, Absent strong pulses, Absent weak pulses, Absent LLE edema, Absent RLE edema, Absent other GASTROINTESTINAL Abdominal: Present soft, Present nontender, Present bowel sounds normal GENITOURINARY Genitourinary: Present exam deferred, Present other (ild testicular swelling) SKIN Skin: Present warm, Present dry MUSCULOSKELETAL Musculoskeletal: Present ROM normal NEUROLOGICAL Neurological: Present alert, Present oriented x 3, Present no gross motor or sensory deficits PSYCHOLOGICAL Psychological: Present mood/affect normal, Present judgement normal Results Laboratory Lab results reviewed: Yes Assessment & Plan Medical Decision Making MDM urinary retention Reassessment Reassessment better Assessment & Plan Final Impression: (1) Acute urinary retention (2) UTI (urinary tract infection) Depart Disposition: HOME, SELF-CARE Last Vital Signs Date Time Temp Pulse Resp B/P (MAP) Pulse Ox O2 Delivery O2 Flow Rate FiO2 04/03/20 11:15 98.1 73 18 133/72 100 Room Air Home Meds Active Scripts Acetaminophen/Codeine* (TYLENOL # 3*) 1 Ea Tab, 1 TAB PO TID for pain, #15 Prov:JAVON LIZARRAGA MD 04/03/20 Reported Medications Lisinopril (LISINOPRIL) 10 Mg Tablet, 10 MG PO DAILY, #30 TAB 04/03/20 Levofloxacin (LEVOFLOXACIN) 250 Mg Tablet, 500 MG PO DAILY, #14 TAB 03/25/20 Acetaminophen/Codeine* (TYLENOL # 3*) 1 Ea Tab, PO Q6H PRN for PRN , #30 03/25/20 Pantoprazole Sodium* (PROTONIX) 40 Mg Tablet.dr, 40 MG PO DAILY, TAB 03/19/20 Calcium Carbonate (CALCIUM CARBONATE) 200 Mg Tab.chew, 400 MG PO Q6H PRN for GAS 03/19/20 Albuterol Sulfate (VENTOLIN HFA) 18 Gm Hfa.aer.ad, 1 UNITS INH Q6H PRN for WHEEZING 03/19/20 Melatonin (MELATONIN) 3 Mg Tablet, 6 MG PO HS PRN for SLEEP, TAB 03/18/20 Aspirin (ASPIRIN) 81 Mg Tab.chew, 81 MG PO DAILY 03/18/20 Atorvastatin Calcium (ATORVASTATIN CALCIUM) 20 Mg Tablet, 40 MG PO HS, #30 TAB 03/18/20 Metoprolol Tartrate (METOPROLOL TARTRATE) 25 Mg Tablet, 12.5 MG PO BID, TAB 03/18/20 Gabapentin (GABAPENTIN) 300 Mg Capsule, 300 MG PO DAILY, #60 CAP 03/18/20 Polyethylene Glycol 3350 (MIRALAX) 17 Gm Powd.pack, 17 GM PO DAILY PRN for CONS TIPATION, GM 03/18/20 Prasugrel Hcl (EFFIENT) 10 Mg Tablet, 10 MG PO DAILY for ON HOLD FOR SURGERY , #30 TAB 03/12/20 Discontinued Reported Medications Lisinopril (LISINOPRIL) 10 Mg Tablet, 15 MG PO DAILY, #30 TAB 02/29/20 Medications in the ED Morphine Sulfate 4 mg ONCE ONCE IV ; Start 04/03/20 at 11:30; Stop 04/03/20 at 11:31; Status UNV Ondansetron HCl 4 mg NOW STAT IV Last administered on 04/03/20at 11:50; Admin Dose 4 MG; Start 04/03/20 at 11:28; Stop 04/03/20 at 11:32; Status DC Ondansetron HCl 4 mg STK-MED ONCE .ROUTE ; Start 04/03/20 at 11:40; Stop 04/03/20 at 11:35; Status DC Acetaminophen/ Hydrocodone Bitart 1 ea STK-MED ONCE .ROUTE ; Start 04/03/20 at 11:40; Stop 04/03/20 at 11:36; Status DC Morphine Sulfate 2 mg NOW STAT IV Last administered on 04/03/20at 11:50; Admin Dose 2 MG; Start 04/03/20 at 11:44; Stop 04/03/20 at 11:49; Status DC Diphenhydramine HCl 25 mg NOW ONCE IV Last administered on 04/03/20at 11:50; Admin Dose 25 MG; Start 04/03/20 at 11:45; Stop 04/03/20 at 11:49; Status DC Acetaminophen/ Hydrocodone Bitart 1 ea ONCE ONCE PO Last administered on 04/03/20at 11:34; Admin Dose 1 EA; Start 04/03/20 at 12:00; Stop 04/03/20 at 12:01; Status DC Diphenhydramine HCl 50 mg STK-MED ONCE .ROUTE ; Start 04/03/20 at 11:54; Stop 04/03/20 at 11:49; Status DC Morphine Sulfate 4 mg STK-MED ONCE .ROUTE ; Start 04/03/20 at 11:54; Stop 04/03/20 at 11:49; Status DC JAVON LIZARRAGA MD Apr 03, 2020 12:40
[2020-04-03] MEDS ORDERED: TYLENOL # 31 EA PO (12:42)
== END 2020-04-03 12:52 | disposition home or self-care (01) ==
LOC: FSED 11:30
DX: R33.9 Retention of urine, unspecified (principal); N39.0 Urinary tract infection, site not specified; I10 Essential (primary) hypertension
CPT/HCPCS: 80053; 81003; 85025; 99283; J1200; J2270 ×2; J2405

== ENCOUNTER 2020-04-04 11:48 | Emergency (ER) | payer MEDICARE ==
[~2020-04-04] VITALS: Ht 170.2 cm; Wt 90.7 kg
--- OUTSIDE RECORDS SUMMARY | 2020-04-04 12:02 | XMS REPORT | Clinical Summary ---
Author Author [facility] Organization [facility] Address Unknown Phone Unavailable Care Team Providers Care Acidizer Name Role Phone Asked, No Pcp PCP [...] (Primary Dx) 06/27/2019 Emergency Emergency Medicine after 04/04/2019 Surgical History Surgery Date Site/Laterality Comments COLON [...] RENAL STONE PROTOCOL STAT 06/27/2019 7:06 PM [facility] URINE CULTURE STAT 06/27/2019 5:47 PM [facility] ESTIMATED GFR STAT 06/27/2019 5:30 PM [facility] LIPASE LEVEL STAT 06/27/2019 5:30 PM [facility] COMPREHENSIVE METABOLIC STAT 06/27/2019 PANEL 5:30 PM [facility] HC COMPLETE BLD COUNT STAT 06/27/2019 W/AUTO DIFF 5:30 PM [facility] URINALYSIS SCREEN AND STAT 06/27/2019 MICROSCOPY, WITH REFLEX 4:45 PM [facility] TO CULTURE after 04/04/2019 Results * Urine culture (08/25/2019 11:33 AM CDT) Only the most recent of 2 results within the time period is included. Urine culture Mixed sisi <=10-3 col/cc [place] isolate Comment: [facility] Specimen Information HOSPITAL Specimen Source: Urine Specimen Site: Clean catch Specimen Urine Performing Organization Address City/State/ZIP Code P ford Number [facility] DEPARTMENT OF [address] [place] [address] PATHOLOGY AND GENOMIC MEDICINE [address] * Urinalysis screen and microscopy, with reflex to culture (08/25/2019 11:14 AM CDT) Only the most recent of 2 results within the time period is included. Specimen site Clean catch [facility] Color, UA Yellow [facility] Appearance, UA Slightly-Cloudy [facility] Specific 1.019 1.001 - 1.035 [place] gravity, [facility] pH, UA 7.0 5.0 - 8.5 [facility] Protein, UA Negative Negative [facility] Glucose, UA Negative Negative [facility] Ketones, UA Negative Negative [facility] Bilirubin, UA Negative Negative [facility] Blood, UA Negative Negative [facility] Nitrite, UA Negative Negative [facility] Urobilinogen, Negative <2.0 [facility] Leukocyte Negative Negative [place] esterase, [facility] Epithelial Many /HPF [place] cells, UA [facility] WBC, UA 7 (H) 0 - 1 /HPF [facility] RBC, UA 2 0 - 5 /HPF [facility] Bacteria, UA None seen None seen [facility] Yeast, UA None seen [facility] Yeast with None seen [place] pseudohyphae, [facility] Specimen Urine Performing Organization Address City/[facility]/ZIP Code P ford Number [facility] DE[place] OF [address] [place] [address] PATHOLOGY AND GENOMIC MEDICINE [address] * Estimated GFR (08/25/2019 10:43 AM CDT) Only the most recent of 2 results within the time period is included. Pathologist [facility] Estimated GFR 83 mL/min/1.73 m2 [place] Comment: [facility] G1 >=90 Normal or high G2 60-89 [...] published in 2014. Specimen Performing Organization Address City/[facility] [place] [address] PATHOLOGY AND GENOMIC MEDICINE [address] * CBC with platelet and differential (08/25/2019 10:43 AM CDT) Only the most recent of 2 results within the time period is included. WBC 6.3 4.2 - 11.0 k/uL [facility] RBC 4.63 4.04 - 5.86 m/uL [facility] HGB 14.0 13.0 - 17.3 g/dL [facility] HCT 42.5 34.0 - 45.0 % [facility] MCV 91.8 80.0 - 98.0 fL [facility] MCH 30.2 27.0 - 34.0 pg [facility] MCHC 32.9 31.5 - 36.5 g/dL [facility] RDW - SD 47.5 37.0 - 51.0 fL [facility] MPV 9.3 7.4 - 10.4 fL [facility] Platelet count 192 150 - 400 k/uL [facility] Nucleated RBC 0.00 /100 WBC [facility] Neutrophils 51.3 36.0 - 66.0 % [facility] Lymphocytes 36.4 24.0 - 44.0 % [facility] Monocytes 9.2 (H) 0.0 - 6.0 % [facility] Eosinophils 1.7 0.0 - 6.0 % [facility] Basophils 0.8 0.0 - 1.2 % [facility] Immature 0.6 0.0 - 1.0 % [place] granulocytes [facility] Specimen Blood Performing Organization Address City/State/ZIP Code P ford Number [facility] DE[place]MENT OF [address] [place] [address] PATHOLOGY AND GENOMIC MEDICINE [address] * Comprehensive metabolic panel (08/25/2019 10:43 AM CDT) Only the most recent of 2 results within the time period is included. Sodium 140 135 - 150 mEq/L [facility] Potassium 4.9 3.5 - 5.0 mEq/L [facility] Chloride 105 98 - 112 mEq/L [facility] CO2 23 (L) 24 - 31 mmol/L [facility] Anion gap 12@ANIO 7 - 15 mEq/L [facility] BUN 14 7 - 18 mg/dL [facility] Creatinine 1.00 0.70 - 1.20 mg/dL [facility] Glucose 101 (H) 65 - 100 mg/dL [facility] Calcium 9.9 8.3 - 10.2 mg/dL [facility] Protein 6.8 6.3 - 8.3 g/dL [facility] Albumin 3.7 3.5 - 5.0 g/dL [facility] A/G ratio 1.2 0.7 - 3.8 [facility] Alkaline 70 0 - 129 U/L [place] phosphatase [facility] AST 21 10 - 50 U/L [facility] ALT 21 5 - 50 U/L [facility] Total bilirubin <0.3 0.2 - 1.2 mg/dL [facility] Specimen Blood Performing Organization Address City/State/ZIP Code P ford Number [facility] [place] OF [address] [phone] PATHOLOGY AND GENOMIC MEDICINE [facility] [address] [place] [address] * CT Renal Stone Protocol (06/27/2019 7:06 PM [facility]) Specimen Narrative Performed At EXAMINATION: CT RENAL [...] MRI would be useful for further evaluation. [facility]-[id number] Procedure Note Hm Interface, Radiology Results Incoming - 06/27/2019 7:24 PM [facility] EXAMINATION: CT RENAL STONE PROTOCOL CLINICAL HISTORY: [...] MRI would be useful for further evaluation. [facility]-[id number] Performing Organization Address City/[facility]/ZIP Code P ford Number [facility] [address] [place] [address] * Lipase level (06/27/2019 5:30 PM [facility]ER) Lipase 61 (H) 13 - 60 U/L [facility] Specimen Plasma specimen Performing Organization Address City/State/ZIP Code P ford Number [facility] DE[place] OF [address] [place] [address] PATHOLOGY AND GENOMIC MEDICINE [facility] [address] [place] [address] HOSPITAL after 04/04/2019 Insurance Type Payer Benefit Subscriber ID Effective Phone Address Plan / Dates Group [facility] MEDICARE AARP [id number] 2019-P MEDICARE resent ADVANTAGE PLAN HMO-POS ([employer]) Advance Directives For more information, please contact: [phone] 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
--- OUTSIDE RECORDS SUMMARY | 2020-04-04 12:04 | XMS REPORT | Continuity of Care Document ---
Author Author [facility] t Organization [facility] Address [address] [place] [address] Phone Unavailable Care Team Providers Care Icer Machine Name Role Phone Joy ESPINAL PCP Sweetie HODGES Attphys Unavailable HAMLIVL, NEHEMRAJIV Attphys Unavailable Roxanne PRETTY, Citlali Attphys [phone] Booker PRETTY, Krunal Torres Attphys [phone] Sweetie HODGES Admphys Unavailable Payers Payer Name Policy Type Policy Number Effective Date Expiration Date Sweetie henleycoral Hailey Medicare Complete [id number] 2019 00:00:00 [facility] MEDICAREAARP MEDICARE ADVANTAGE PLAN HMO-POS (WELLMED)[id number] 2019-PresentHMO [id number] 2019 00:00 :00 [facility] Problems Condition Name Condition Details Condition Category Status Onset Date Resolution Date Last Treatment Date Treating Clinician Comments Source Urinary tract infection Problem Active [facility] Allergies, Adverse Reactions, Alerts Allergy Name Allergy Type Status Severity Reaction(s) Onset Date Inacti ve Date Treating Clinician Comments Source Morphine Allergy to substance Active 2020-03-12 00:00:00 [facility] Iodinated Contrast Media DA Active U 2020-01-21 00:00:00 [facility] No Known Allergies DA Active U 2020-01-21 00:00:00 [facility] No Known Allergies DA Active U 2019-11-10 00:00:00 [facility] morphine DA Active MO 2019-10-15 00:00:00 [facility] morphine DA Active MO 2019-07-29 00:00:00 [facility] morphine DA Active MO 2019-02-10 00:00:00 [facility] morphine DA Active MO 2019-01-13 00:00:00 [facility] morphine DA Active MO 2018-10-07 00:00:00 [facility] morphine DA Active MO 2018-10-06 00:00:00 [facility] CHLORHEXEDINE GLUCONATE WIPES DA Active PR 2018-09-10 00:0 0:00 [facility] morphine DA Active MO 2018-08-13 00:00:00 [facility] Morphine Propensity to adverse reactions to drug Active Itching 2018-04-28 00:00:00 [facility] morphine DA Active PR 2018-04-28 00:00:00 [facility] No Known Allergies DA Active U 2018-04-28 00:00:00 [facility] No Known Allergies DA Active U 2015-12-16 00:00:00 [facility] Social History Social Habit Start Date Stop [...] PUFFS PO Q 6 H PRN Adiel mckeon tiZANidine (ZANAFLEX) 4 MG tablet 2019-07-13 00:00:00 Ye s 4mg [id number] Take 4 mg by mouth 3 (three) [...] 6 Hours as needed for Prn [facility] Albuterol Sulfate (Ventolin Hfa) 18 Gm HFA.AER.AD Albu terol Sulfate (Ventolin Hfa) 18 Gm HFA.AER.AD Yes 1 Every 6 Hours as needed for Wheezing [facility] Aspirin Aspirin Yes 81 Daily [facility] Atorvastatin Calcium Atorvastatin Calcium Yes 40 Bedtime [facility] Calcium Carbonate Calcium Carbonate Yes 40 0 Every 6 Hours as needed for Gas [facility] Gabapentin Gabapentin Yes 300 Daily [facility] Levofloxacin Levofloxacin Yes 500 Daily [facility] Lisinopril Lisinopril Yes [address] [facility] Melatonin Melatonin Yes 6 Bedtime as needed fo r Sleep [facility] Metoprolol Tartrate Metoprolol Tartrate Yes 12.5 Twice A Day [facility] Pantoprazole Sodium (Protonix) 40 Mg TABLET. Pantopr azole Sodium (Protonix) 40 Mg TABLET. Yes 40 Daily [facility] Polyethylene Glycol 3350 (Miralax) 17 Gm POWD.PACK Je yethylene Glycol 3350 (Miralax) 17 Gm POWD.PACK Yes 17 Daily as nee ded for Constipation [facility] Prasugrel Hcl (Effient) 10 Mg TABLET Prasugrel Hcl (Effient) 10 Mg TABLET Yes 10 Daily for On Hold For Surgery [facility] Metoprolol Metoprolol 2020-03-18 00:00:00 No 25 D aily [facility] Vital Signs Vital Name Observation Time Observation Value Comments Source Body Temperature 2020-03-25 13:19:00 97.8 [degF] [facility] Heart Rate 2020-03-25 13:19:00 57 /min [facility] Respiratory rate 2020-03-25 13:19:00 20 /min [facility] BP Systolic 2020-03-25 13:19:00 139 mm[Hg] [facility] BP Diastolic 2020-03-25 13:19:00 91 mm[Hg] [facility] Oxygen saturation by Pulse oximetry 2020-03-25 13:19:00 98 /min [facility] BMI (Body Mass Index) 2020-03-18 22:37:00 32.1 kg/m2 [facility] Weight 2020-03-18 16:19:00 205 [lb_av] [facility] Systolic blood pressure 2019-08-25 11:00:00 168 mm[Hg] Adiel Ibarra Diastolic blood pressure 2019-08-25 11:00:00 98 mm[Hg] Adiel Ibarra Heart rate 2019-08-25 11:00:00 64 /min Adiel Ibarra Oxygen saturation in Arterial blood by Pulse oximetry 08-24 11:00:00 97 /min [facility] Body temperature 2019-08-25 10:15:20 36.72 Rafael[facility] Respiratory rate 2019-08-25 10:15:20 19 /min [facility] Body height 2019-08-25 10:15:00 170.2 cm [facility] Body weight 2019-08-25 10:15:00 90.719 kg Adiel Ibarra BMI 2019-08-25 10:15:00 31.32 kg/m2 Adiel Ibarra Procedures Procedure Date / Time Performed Performing Clinician [facility] e REVISION OF BLADDER NECK 2020-03-17 00:00:00 [facility] X-ray of chest, two views 2020-03-14 00:00:00 CH Rhianna [facility] URINE CULTURE 2019-08-25 11:33:00 Mere Gifford URINALYSIS SCREEN AND MICROSCOPY, WITH REFLEX TO CULTURE 11:14:00 Mere Gifford HC COMPLETE BLD COUNT W/AUTO DIFF 2019-08-25 10:43:00 Wilmer Gifford COMPREHENSIVE METABOLIC PANEL 2019-08-25 10:43:00 Alexis Gifford ESTIMATED GFR 2019-08-25 10:43:[address] RENAL STONE PROTOCOL 2019-06-27 19:06:29 Pearl Hsu URINE CULTURE 2019-06-27 17:47:00 Maximo Garcia odist HC COMPLETE BLD COUNT W/AUTO DIFF 2019-06-27 17:30:00 Luz Terrell se COMPREHENSIVE METABOLIC PANEL 2019-06-27 17:30:00 Bobby Terrell LIPASE LEVEL 2019-06-27 17:30:00 Bobby Terrell on [facility] ESTIMATED GFR 2019-06-27 17:30:00 Maximo Garcia [facility] URINALYSIS SCREEN AND MICROSCOPY, WITH REFLEX TO CULTURE 16:45:00 Bobby Terrell Plan of Care Planned Activity Planned Date Details Comments Source Future Scheduled Test 2019-12-05 00:00:00 INFLUENZA VACCINE [code = INFLUENZA VACCINE] [facility] Future Scheduled Test 2011-10-21 00:00:00 COLONOSCOPY SCREEN ING [code = COLONOSCOPY SCREENING] [facility] Future Scheduled Test 2011-10-21 00:00:00 SHINGLES VACCINES (#1) [code = SHINGLES VACCINES (#1)] [facility] Instructions Post Operative Pain [facility] Instructions Urinary Tract Infection - Men [facility] Encounters Start Date/Time End Date/Time Encounter Type Admission Type [facility] Care Department Encounter ID Source 2020-03-18 16:18:00 2020-03-25 15:30:00 Discharged Inpatient [address] [facility] [id number] [facility] 2020-03-17 08:41:00 2020-03-17 08:41:00 Registered Surgical Day Car e AMARJIT LI [facility] [id number] I [facility] 2019-08-25 00:00:00 2019-08-25 00:00:00 Emergency Nick [facility] [id number] [facility] 2019-06-27 00:00:00 2019-06-27 00:00:00 Emergency BOBBY TERRELL [id number] [facility] 2018-08-13 15:15:00 2018-08-13 15:15:00 Emergency E MHNE MHNE 7511 MHNE Results Test Description Test Time Test Comments Results Result Comments Source URETHROGRAM (RETRO) 2020-03-23 09:58:[address] [facility] : 1960 Sex: M [place] [address] Patient Name: LAVONNE CONRTERAS MR #: [id number] : 1960 Age/Sex: 59/M Req #: [id number] [facility] Physician: Ordered by: AMARJIT DON MD Report #: [id number] Location: OR Room/Bed: Procedure: [id number] DX/URETHROGRAM (RETRO) Exam Date: 03/17/20 Exam Time: 1102 REPORT STATUS: Signed OR Fluoroscopy: IMPRESSION: Fluoroscopy service provided in the OR. Interpretation not requested. Signed by: Daniele Cronin MD on 03/23/2020 10:00 AM Dictated By: DANIELE CRONIN MD 1000 Transcribed By: ISMA on 03/23/20 1000 COPY TO: AMARJIT DON MD Blood leukocytes automated count (number/volume) 2020-03-23 04:50:00 Test Item White Blood Count (test code = 6690-2) 4.85 10*3/uL 4.8-10.8 [facility] erythrocytes automated count (number/volume)2020-03-23 04:50:00* Test Item Value Reference Range Interpretation Comments Red Blood Count (test code = 789-8) 3.12 10*6/mL 4.3-5.7 [facility] hemoglobin measurement (moles/volume)2020-03-23 04:50:00* Test Item Value Reference Range Interpretation Comments Hemoglobin (test code = 80966-1) 8.5 g/dL 14.0-18.0 [facility] blood hematocrit (volume fraction)2020-03-23 04:50:00* Test Item Value Reference Range Interpretation Comments Hematocrit (test code = 4544-3) 26.6 % 38.2-49.6 [facility] erythrocyte mean corpuscular fznlbx4056-04-99 04:50:00* Test Item Value Reference Range Interpretation Comments Mean Corpuscular Volume (test code = 787-2) 85.3 81-99 [facility]Autom[facility] erythrocyte mean corpuscular hemoglobin (mass per erythrocyte)2020-03-23 04:50:00* Test Item Value Reference Range Interpretation Comments Mean Corpuscular Hemoglobin (test code = 785-6) 27.2 pg 28-32 [facility] HoustonAutom[facility] erythrocyte mean corpuscular hemoglobin concentration measurement (mass/volume)2020-03-23 04:50:00* Test Item Value Reference Range Interpretation Comments Mean Corpuscular Hemoglobin Concent (test code = 786-4) 32.0 g/dL 31-35 [facility] HoustonRDW NgfKt-Kxp0902-36-18 04:50:00* Test Item Value Reference Range Interpretation Comments Red Cell Distribution Width (test code = 97092-3) 13.8 % 11.7 -14.4 [facility] Houston[facility] blood platelet count (count/volume)2020-03-23 04:50:00* Test Item Value Reference Range Interpretation Comments Platelet Count (test code = 777-3) 145 10*3/uL 140-360 [facility] HoustonAutom[facility] blood segmented neutrophil count as percentage of total nnuizbylcm7347-87-78 04:50:00* Test Item Value Reference Range Interpretation Comments Neutrophils (%) (Auto) (test code = 12758-0) 65.0 % 38.7-80.0 [facility] HoustonAutom[facility] blood lymphocyte count as percentage ot total pklxwifkpl6836-04-41 04:50:00* Test Item Value Reference Range Interpretation Comments Lymphocytes (%) (Auto) (test code = 736-9) 18.6 % 18.0-39.1 [facility] HoustonAutomated blood monocyte count as percentage of total jmwhduoffr7726-32-02 04:50:00* Test Item Value Reference Range Interpretation Comments Monocytes (%) (Auto) (test code = 5905-5) 10.1 % 4.4-11.3 [facility] eosinophil count as percentage of total ncgxusewcr8353-06-23 04:50:00* Test Item Value Reference Range Interpretation Comments Eosinophils (%) (Auto) (test code = 713-8) 4.5 % 0.0-6.0 [facility] HoustonAutom[facility] blood basophil count as percentage of total vfagijfqyh4700-65-30 04:50:00* Test Item Value Reference Range Interpretation Comments Basophils (%) (Auto) (test code = 706-2) 1.0 % 0.0-1.0 [facility] HoustonFluoroscopic procedure less than one hour zgxreccd3445-05-39 04:50:00* Test Item Value Reference Range Interpretation Comments IM GRANULOCYTES % (test code = IM GRANULOCYTES %) 0.8 % 0.0- 1.0 [facility] HoustonAutom[facility] blood neutrophil count 2020-03-23 04:50:00* Test Item Value Reference Range Interpretation Comments Neutrophils # (Auto) (test code = 751-8) 3.2 2.1-6.9 [facility] HoustonBlood lymphocytes count (number/volume) 2020-03-23 04:50:00* Test Item Value Reference Range Interpretation Comments Lymphocytes # (Auto) (test code = 95556-0) 0.9 1.0-3.2 [facility] HoustonBlood monocytes automated count (number/volume)2020-03-23 04:50:00* Test Item Value Reference Range Interpretation Comments Monocytes # (Auto) (test code = 742-7) 0.5 0.2-0.8 [facility] HoustonAutomated blood eosinophil count 2020-03-23 04:50:00* Test Item Value Reference Range Interpretation Comments Eosinophils # (Auto) (test code = 711-2) 0.2 0.0-0.4 [facility] HoustonAutomated blood basophil count (count/volume)2020-03-23 04:50:00* Test Item Value Reference Range Interpretation Comments Basophils # (Auto) (test code = 704-7) 0.1 0.0-0.1 [facility] HoustonFluoroscopic procedure less than one hour rsvavayc2776-81-70 04:50:00* Test Item Value Reference Range Interpretation Comments Absolute Immature Granulocyte (auto (radha t code = Absolute Immature Granulocyte (auto) 0.04 10*3/uL 0-0.1 [facility] sodium measurement (moles/volume)2020-03-23 04:50:00* Test Item Value Reference Range Interpretation Comments Sodium Level (test code = 2951-2) 140 mmol/L 136-145 [facility] potassium measurement (moles/volume)2020-03-23 04:50:00* Test Item Value Reference Range Interpretation Comments Potassium Level (test code = 2823-3) 3.4 mmol/L 3.5-5.1 [facility] chloride measurement (moles/volume)2020-03-23 04:50:00* Test Item Value Reference Range Interpretation Comments Chloride Level (test code = 2075-0) 109 mmol/L 98-107 [facility] carbon dioxide, total measurement (moles/volume)2020-03-23 04:50:00* Test Item Value Reference Range Interpretation Comments Carbon Dioxide Level (test code = 2028-9) 26 mmol/L 22- [facility] anion rlz7493-79-00 04:50:00* Test Item Value Reference Range Interpretation Comments Anion Gap (test code = 46111-3) 8.4 mmol/L 8-16 [facility] urea nitrogen measurement (mass/volume)2020-03-23 04:50:00* Test Item Value Reference Range Interpretation Comments Blood Urea Nitrogen (test code = 3094-0) 6 mg/dL 7- [facility] creatinine measurement (mass/volume)2020-03-23 04:50:00* Test Item Value Reference Range Interpretation Comments Creatinine (test code = 2160-0) 0.74 mg/dL 0.72-1.25 [facility] urea nitrogen/creatinine mass tfghk7201-73-63 04:50:00* Test Item Value Reference Range Interpretation Comments BUN/Creatinine Ratio (test code = 3097-3) 8 - [facility] HoustonEstimated glomerular filtration rate (GFR) xexjkhxlzgrki0290-26-97 04:50:00* Test Item Value Reference Range Interpretation Comments Estimat Glomerular Filtration Rate (test code = 972080212) > 60 mL/ min >60 Ranges were taken from the National Kidney Disease Education Program and the [facility] [employer] literature.Reference ranges:60 or greater: Nkoawr65-97 ( for 3 consecutive months): Chronic kidney disease 15 or less: Kidney failureNexus Children's Hospital HoustonGlucose kxhhfhwprfk1579-40-38 04:50:00* Test Item Value Reference Range Interpretation Comments Glucose Level (test code = IJU6733) 93 mg/dL 74-118 [facility] calcium measurement (mass/volume)2020-03-23 04:50:00* Test Item Value Reference Range Interpretation Comments Calcium Level (test code = 99364-9) 7.6 mg/dL 8.4-10.2 [facility] total bilirubin measurement (mass/volume)2020-03-23 04:50:00* Test Item Value Reference Range Interpretation Comments Total Bilirubin (test code = 1975-2) 0.5 mg/dL 0.2-1.2 [facility] HoustonFluoroscopic procedure less than one hour gheifhep0362-21-99 04:50:00* Test Item Value Reference Range Interpretation Comments Aspartate Amino Transf (AST/SGOT) (test code = Aspartate Amino Transf (AST/SGOT)) 14 [IU]/L 5-34 [facility] or plasma alanine aminotransferase measurement (enzymatic activity/volume)2020-03-23 04:50:00* Test Item Value Reference Range Interpretation Comments Alanine Aminotransferase (ALT/SGPT) (test code = 1742-6) 22 [IU]/L 0-55 [facility] protein measurement (mass/volume)2020-03-23 04:50:00* Test Item Value Reference Range Interpretation Comments Total Protein (test code = 2885-2) 5.3 g/dL 6.5-8.1 [facility] albumin measurement (mass/volume)2020-03-23 04:50:00* Test Item Value Reference Range Interpretation Comments Albumin (test code = 1751-7) 2.9 g/dL 3.5-5.0 [facility] HoustonPlasma globulin measurement (mass/volume) 2020-03-23 04:50:00* Test Item Value Reference Range Interpretation Comments Globulin (test code = 11631-3) 2.4 g/dL 2.3-3.5 [facility] albumin/globulin mass hyiqn7824-76-79 04:50:00* Test Item Value Reference Range Interpretation Comments Albumin/Globulin Ratio (test code = 1759-0) 1.2 0.8-2.0 [facility] plasma alkaline phosphatase measurement (enzymatic activity/volume)2020-03-23 04:50:00* Test Item Value Reference Range Interpretation Comments Alkaline Phosphatase (test code = 6768-6) 132 [IU]/L 40-150 [facility] HoustonCHEST XRAY LINE CJQEPFWLG8912-91-45 19:15:00[facility] : 1960 Sex: M [facility] [address] [address] Patient Name: LAVONNE CONTRERAS MR #: [id number] : 1960 Age/Sex: 59/M Req #: [id number] [facility] Physician: ISAAK HODGES MD Ordered by: ISAAK HODGES MD Report #: [id number] [facility]: [facility] Room/Bed: [facility] ____ Procedure: [id number] DX/CHEST XRAY LINE PLACEMENT Exam Date: 03/20/20 Exam Time: 1854 REPORT STATUS: Signed EXAMINATION: CHEST XRAY LINE PLACEME NT INDICATION: s/p picc placement [id number] COM PARISON: Chest x-ray 03/14/2020 FINDINGS: TUBES and [...] COPY TO: ISAAK HODGES MD Urine color hmdghnyhzillz7578-26-06 17:32:00* Test Item Value Reference Range Interpretation Comments Urine Color (test code = 5778-6) BROWN YELLOW [facility] HoustonUrine hafygoe2136-17-39 17:32:00* Test Item Value Reference Range Interpretation Comments Urine Clarity (test code = 12332-6) CLOUDY CLEAR [facility] Urine by Test strip 2020-03-18 17:32:00* Test Item Value Reference Range Interpretation Comments Urine Specific [place] (test code = 5811-5) >=1.030 1.010-1.02 5 [facility] HoustonUrine pH measurement by automated test ngzkc4847-68-17 17:32:00* Test Item Value Reference Range Interpretation Comments Urine pH (test code = 25873-0) 5.5 5-7 [facility] HoustonUrine leukocyte esterase detection by qkzbmurj5701-74-62 17:32:00* Test Item Value Reference Range Interpretation Comments Urine Leukocyte Esterase (test code = 5799-2) NEGATIVE NEGATIVE [facility] HoustonUrine nitrite twxeyzrld1031-36-17 17:32:00* Test Item Value Reference Range Interpretation Comments Urine Nitrite (test code = 07313-2) POSITIVE NEGATIVE [facility] HoustonUrine protein measurement by test strip (mass/volume)2020-03-18 17:32:00* Test Item Value Reference Range Interpretation Comments Urine Protein (test code = 5804-0) 2+ NEGATIVE [facility] HoustonUrine glucose dvvegoelz3442-93-51 17:32:00* Test Item Value Reference Range Interpretation Comments Urine Glucose (UA) (test code = 2349-9) NEGATIVE NEGATIVE [facility] HoustonUrine ketones detection by automated test zhyor6285-83-90 17:32:00* Test Item Value Reference Range Interpretation Comments Urine Ketones (test code = 68574-5) TRACE NEGATIVE [facility] HoustonUrine urobilinogen measurement by test strip (mass/volume)2020-03-18 17:32:00* Test Item Value Reference Range Interpretation Comments Urine Urobilinogen (test code = 72520-0) 1 mg/dL 0.2-1 [facility] HoustonUrine total bilirubin measurement (mass/volume)2020-03-18 17:32:00* Test Item Value Reference Range Interpretation Comments Urine Bilirubin (test code = 1978-6) NEGATIVE NEGATIVE [facility] HoustonUrine erythrocytes bywtvynel7395-60-03 17:32:00* Test Item Value Reference Range Interpretation Comments Urine Blood (test code = 44170-1) LARGE NEGATIVE [facility] HoustonAutomated urine sediment leukocyte count by microscopy (number/high power field)2020-03-18 17:32:00* Test Item Value Reference Range Interpretation Comments Urine WBC (test code = 5821-4) NONE /[HPF] 0-5 [facility] HoustonErythrocytes detection in urine sediment by light mhidlxztkb8513-16-24 17:32:00* Test Item Value Reference Range Interpretation Comments Urine RBC (test code = 56641-9) 21-50 /[HPF] 0-5 [facility] HoustonBacteria detection in urine sediment by light owqucmusha7621-64-47 17:32:00* Test Item Value Reference Range Interpretation Comments Urine Bacteria (test code = 04106-1) MANY /[HPF] NONE [facility] HoustonEpithelial cells detection in urine sediment by light ziqdqvxebm9058-84-76 17:32:00* Test Item Value Reference Range Interpretation Comments Urine Epithelial Cells (test code = 76393-3) RARE /[LPF] NONE [facility] HoustonFluoroscopic procedure less than one hour iftrhgai0739-15-41 17:32:00* Test Item Value Reference Range Interpretation Comments Lactic Acid Level (test code = Lactic Acid Level) 1.6 mmol/L 0.5- 2.0 [facility] HoustonFluoroscopic procedure less than one hour gmsyhgln8844-55-10 17:32:00* Test Item Value Reference Range Interpretation [...] high.The expected result is negative (not detected).Methodol selene is Huy [place]ie Real-Time RT-PCRFor more information regarding COVID-19 testi ng to include clinical information, methodology detail, intended use, FDA author ization and recommended fact sheets for patients or healthcare providers, see Yen w Test Announcement: SARS-CoV-2 by NAAT at: [email or web address]/[email or web address] house-[email or web address]/Unless otherwise indicated, all testing is performed at:[facility] Pathology [address] [place] [address] [phone] tory Director: Mary Fischer M.D.[facility] # [id number] Children's Hospital HoustonBlood iqtxqot6938-79-55 17:32:00* Test Item Value Reference Range Interpretation Comments Blood Culture (test code = 53938469) NO GROWTH AFTER 5 DAYS, FINAL REPORT [facility] HoustonB-TYPE NATRIURETIC FKOLHIH1549-88-95 13:27:00* Test Item Value Reference Range Interpretation Comments B-TYPE NATRIURETIC PEPTIDE (test code = BNP) 36.0 PG/ML 0-100 N - CT ABD PELVIS W/O [id number] 13:25:00 [facility] SANGEETHA GARCIAName: LAVONNE CONTRERAS : 1960 Sex: M Name: LAVONNE CONTRERAS [facility] Sangeetha Garcia : 1960 Age/S: 59 / M [address] [place] [address] Bl Unit #: [id number] Loc: [place] [address] Phys: Thom Bliss Acct: [id number] Dis Date: Stat us: REG ER PHONE #: [phone] Exam Date: 03/18/2020 1301 FAX #: [phone] Reason: flank kacie n, fever, vomiting EXAMS: CPT CODE: [id number] CT ABD PELVIS W/O CONT 82923 PROCEDURE: CT ABDOMEN AND PELVIS WITHOUT CONTRAST ( RENAL STONE CT) INDICATION: flank pain, fever, vomiting; 59-year-o ld male with history of recent bladder procedure, timing not specified. COMPARISON: CT abdomen and pelvis without contrast 01/21/2020, 01/01/2020 TECHNIQUE: Noncontrasted helical imaging was performed d [facility] through the symphysis as a renal stone protocol with multiplanar reconstructions. CT imaging performed at this location utilizes radi [facility] dose optimization techniques which include one or [...] 1 Signed Report (CONTINUED) Name: LAVONNE CONTRERAS [facility] : 1960 Age/S: 59 / M [address] [place] [address] Unit #: [id number] Loc: [place] [address] [facility] s: Thom Bliss JOSEPH Acct: [id number] Dis Date: Status: REG ER PHONE #: [phone] Exam Date: 03/18/2020 1301 FAX #: [phone] Reason: flank pain, fever, vomiting EXAMS: CPT CODE: [id number] CT ABD PELVIS W/O CONT 68393 <Continued> APPENDIX: Surgically absent PERITONEUM: There is [...] 2 Signed Report (CONTINUED) Name: LAVONNE HEALY [facility] : [birth year] Age/S: 59 / M [address] [place] [address] Unit #: [id number] Loc: [place] [address] Phys: Thom Bliss Acct: [id number] Dis Date: Status: REG ER PHONE #: Exam Date: 03/18/2020 1301 FAX #: [phone] R rashaun: flank pain, fever, vomiting EXAMS: CPT CODE: [id number] CT ABD PELVIS W/O CONT 44554 <Continued> 5. Other chronic nonemergent findings as above. SL: [id number] at 1325 Reported and signed by: Dru Rodriguez M.D. CC: Bassam Fajardo DO; Tony Espinal DO; Thom RUIZ Technologist:RT Milvia(R)(CT) CTDI: DLP: Trnscb Date/Time: 03/18/2020 (1325) [email or web address] Orig Print D/T: S: 03/18/2020 (1328) PAGE 3 Signed Report COMPREHENSIVE METABOLIC [id number] 13:23:00* Test Item Value Reference Range Interpretation [...] code = ALKP) 139 IUnit/L 20-125 H [id number] 13:22:00* Test Item Value Reference Range Interpretation Comments TROPONIN-I (test code = TROPI) < 0.006 ng/mL 0.000-0.045 N Negative: <= 0.045 Positive: >= 0.046 Correlation with serial results, other cardiac markers andclinical findings is necessary to determine the clinicalsignificance of this result. Results using different methodologies should not be comparedto one another as quantitative results may vary by method. LACTIC [id number] 13:13:00* Test Item Value Reference Range Interpretation Comments LACTIC ACID (test code = LACT) 1.9 mmol/L 0.4-1.9 N CBC W/AUTO [id number] 13:05:00* Test Item Value Reference Range Interpretation [...] (test code = MDIFF) NO CBC W/AUTO [id number] 13:01:00* Test Item Value Reference Range Interpretation [...] = MDIFF) UA RFLX MICR CULT IF [id number] 11:57:00* Test Item Value Reference Range Interpretation [...] SEEN Indication for culture: Flank PainSpecimen Description: [facility] 2 [id number] 12:35:00 [facility] : 1960 Sex: M [place] [address] Patient Name: LAVONNE CONTRERAS MR #: [id number] : 1960 Age/Sex: 59/M Req #: [id number] Adm Physician: Dianne copeland by: AYAAN DON MD Report #: [id number] Locati on: OR Room/Bed: Procedure: [id number] DX/CHEST 2 VIEWS Exam Date: 03/14/20 Exam [...] OPY TO: AYAAN DON MD BASIC METABOLIC [id number] 11:11:00* Test Item Value Reference Range Interpretation [...] CA) 9.0 mg/dL 8.5-10.1 N HEPATIC FUNCTION [id number] 11:11:00* Test Item Value Reference Range Interpretation [...] reference range due to change in reagent. [id number] 11:11:00* Test Item Value Reference Range Interpretation Comments LIPASE (test code = LIP) 210 U/L 73.0-393.0 N LACTIC [id number] 11:11:00* Test Item Value Reference Range Interpretation Comments LACTIC ACID (test code = LACT) 1.3 mmol/L 0.4-1.9 N BASIC METABOLIC [id number] 11:01:00* Test Item Value Reference Range Interpretation [...] code = CA) mg/dL 8.5-10.1 HEPATIC FUNCTION [id number] 11:01:00* Test Item Value Reference Range Interpretation [...] TOTAL (test code = ALKP) IUnit/L 45-117 [id number] 11:01:00* Test Item Value Reference Range Interpretation Comments LIPASE (test code = LIP) U/L 73.0-393.0 URINALYSIS [id number] 10:59:00* Test Item Value Reference Range Interpretation [...] 1.001-1.035 UA BLOOD DIPSTICK (test code = MERRAY) Negative mg/dL NEGATIVE UA PH DIPSTICK (test [...] FEW #/LPF FEW Urine Source? Clean CatchURINALYSIS [id number] 10:57:00* Test Item Value Reference Range Interpretation [...] HPF NONE Urine Source? Clean CatchCBC W/O [id number] 10:56:00* Test Item Value Reference Range Interpretation [...] 6.7-11.0 N - CT ABD PELVIS W/O [id number] 10:29:00 Name: LAVONNE CONTRERAS [facility] : 1960 Age/S: 59 / M [address] [facility] Unit #: [id number] Loc: [place] [address] Phys: Katelyn Daigle NP Acct: [id number] Dis Date: Status: REG ER PHONE #: [phone] Exam Date: 01/21/2020 1001 FAX #: [phone] Reason: L flank pain EXAMS: CPT CODE: [id number] CT ABD PELVIS W/O CONT 00654 REASON FOR EXAM: L flank pain EXAM [...] 1 Signed Report (CONTINUED) Name: LAVONNE CONTRERAS [facility] : 1960 Age/S: 59 / M [address] Unit #: [id number] Loc: [place] [address] Phys: Katelyn Daigle NP Acct: [id number] Dis Date: S tatus: REG ER PHONE #: [phone] Exam Da te: 01/21/2020 1001 FAX #: [phone] Reason: L flan k pain EXAMS: CPT CODE: [id number] CT ABD PELVIS W/O CONT 58631 <Continued> right upper abdomen () and are [...] unchanged from the previous e xam. Location: [facility] at 1029 Reported and signed by: Joe Vu MD CC: Katelyn Daigle DUST MOP MAKER; TONY ESPINAL Technologist:RT Axel(R),CT CTDI: DLP: Tr nscb Date/Time: 01/21/2020 (1029) TannaRR31 Orig Print D/ T: S: 01/21/2020 (1032) PAGE 2 Signed Report UA RFLX MICR CULT IF [id number] 10:41:00* Test Item Value Reference Range Interpretation [...] URINE: VOIDEDIndication for culture: Flank PainBASIC METABOLIC [id number] 10:24:00* Test Item Value Reference Range Interpretation [...] CA) 8.8 mg/dL 8.4-10.2 N LIVER FUNCTION [id number] 10:24:00* Test Item Value Reference Range Interpretation [...] code = ALKP) 71 U/L 38-126 N [id number] 10:24:00* Test Item Value Reference Range Interpretation Comments LIPASE (test code = LIP) 235 U/L 23-300 N - CT ABD PELVIS W/O [id number] 10:13:00 [place]: St: REG Name: LAVONNE HEALY [facility] : 2 Age/S: 59/M [address] Unit: [id number] Loc: [place] [address] Phys: DemetriusKerry garcia ANP Acct: [id number] Dis Date: Status: REG ER PHONE #: Exam Date: 01/01/2020954 FAX #: [phone] Reason: LEFT FLANK PAIN EXAMS: CPT CODE: [id number] CT ABD PELVIS W/O CONT 32373 HISTORY: Left flank pain, kidney problems. CT [...] s: CAT St: REG Name: LAVONNE CONTRERAS [facility] : 1960 Age/S: 59/M [address] Unit: [id number] Loc: [place] [address] Ph ys: Kerry Navas Acct: [id number] Dis Date: Status: REG ER PHONE #: [phone] Exam Date: 01/01/2020 0955 FAX #: [phone] Reason: LEFT FLANK PAIN EXAMS: CPT CODE: [id number] CT ABD PELVIS W/O CONT 31155 <Continued> change. Old trauma of the SI [...] (1017 PAGE 2 Signed Report CBC W/AUTO [id number] 10:03:00* Test Item Value Reference Range Interpretation [...] 0.08 x10 3/uL 0.0-0.1 N CARDIAC ENZYMES [id number] 22:47:00* Test Item Value Reference Range Interpretation [...] is used.~~~~~~~~~~~~~~~~~~~~~~~~~~~~~~~~~~~~~~~~~~~~~~~~~~~~~~~~~~~ UA RFLX MICR CULT IF [id number] 22:22:00* Test Item Value Reference Range Interpretation [...] CHD)40-59mg/dL: Borderline Risk LDL Cholesterol<100mg/dL: Desirable LDL-C fxvbpqkauplxp524-082pf/dL: Borderline High Risk LDL-C npmpmutjuqxko520- 189mg/dL: High risk LDL-C concentration HDL-LDL Cholesterol is affected by a number of factors suchas smoking, age and sex.~~~~~~~~~~~~~~~~~~~~~~~~~~~~~~~~~~~~~~~~~~~~~~~~~~~~~~~~~~~~ [id number] 18:52:00* Test Item Value Reference Range Interpretation Comments MAGNESIUM (test code = MAG) 2.2 mg/dL 1.6-2.3 N CARDIAC ENZYMES [id number] 18:44:00* Test Item Value Reference Range Interpretation [...] valid only if similarmethodology is used.~~~~~~~~~~~~~~~~~~~~~~~~~~~~~~~~~~~~~~~~~~~~~~~~~~~~~~~~~~~ LACTIC [id number] 18:33:00* Test Item Value Reference Range Interpretation Comments LACTIC ACID (test code = LACT) 2.0 mmol/L 0.7-2.0 N - CT ABD PELVIS W/[id number] 16:39:00 [place]: CAT St: REG Name: LAVONNE HEALY [facility] Ch[place] : 2 Age/S: 59/M [address] Unit: [id number] Loc: [place] [address] Phys: Jim Brito MD Acct: [id number] Dis Date: Status: REG ER PHONE #: [phone] Exam Date: 11/10/2019 1630 FAX #: [phone] Reason: left abd pain EXAMS: CPT CODE: [id number] CT ABD PELVIS W/CONT 13393 CT Abdomen and Pelvis with contras t. [...] AGUILAR; Hannah Ford Trnscrd Dt/Tm: 11/2019 (1639) t.[email or web address] Orig Print D/T: S: 11/10/2019 ( 1642 PAGE 1 Signed Report LACTIC [id number] 14:26:00* Test Item Value Reference Range Interpretation Comments LACTIC ACID (test code = LACT) 3.1 mmol/L 0.7-2.0 HH Critical Value reported toFirst Name:[id number] Last Name:RESULTS READ BACK AND VERIFIEDby NURIA, on 11/10/19, @ 1426. BASIC METABOLIC [id number] 14:04:00* Test Item Value Reference Range Interpretation [...] CA) 8.6 mg/dL 8.4-10.2 N LIVER FUNCTION [id number] 14:04:00* Test Item Value Reference Range Interpretation [...] code = ALKP) 117 U/L 38-126 N [id number] 14:04:00* Test Item Value Reference Range Interpretation Comments LIPASE (test code = LIP) 438 U/L 23-300 H NT PRO-BRAIN NATRIURETIC [id number] 14:04:00* Test Item Value Reference Range Interpretation Comments NT PRO-BRAIN NATRIURETIC PEPTI (test code = PROBNP) 22.0 pg/mL 0- 299 N ~~~~~~~~~~~~~~~~~~~~~~~~~~~~~~~~~~~~~~~~~~~~~~~~~~~~~~~~~~~~NT PRO-BNP IS THE REPLACEMENT ASSAY FOR BNP.~~~~~~~~~~~~~~~~~~~~~~~~~~~~~~~~~~~~~~~~~~~~~~~~~~~~~~~~~~~~RULE-IN CUT POINTS FOR PATIENTS WITH SUSPECTED ACUTECONGESTIVE HEART FAILURE:<50 yrs old: >450 pg/mL50-75 yrs old: >900 pg/mL>75 yrs old: >1800 pg/mLA positive bias may occur on patients taking BIOTINsupplements. COVID 19 INHOUSE [id number] 14:04:00* Test Item Value Reference Range Interpretation Comments COVID 19 INHOUSE AG (test code = [id number]) NEGATIVE Negative BASIC METABOLIC [id number] 13:55:00* Test Item Value Reference Range Interpretation [...] CA) 8.6 mg/dL 8.4-10.2 N LIVER FUNCTION [id number] 13:55:00* Test Item Value Reference Range Interpretation [...] code = ALKP) 117 U/L 38-126 N [id number] 13:55:00* Test Item Value Reference Range Interpretation Comments LIPASE (test code = LIP) 438 U/L 23-300 H NT PRO-BRAIN NATRIURETIC [id number] 13:55:00* Test Item Value Reference Range Interpretation Comments NT PRO-BRAIN NATRIURETIC PEPTI (test code = PROBNP) pg/mL 0- 299 BASIC METABOLIC [id number] 13:54:00* Test Item Value Reference Range Interpretation [...] CA) 8.6 mg/dL 8.4-10.2 N LIVER FUNCTION [id number] 13:54:00* Test Item Value Reference Range Interpretation [...] code = ALKP) 117 U/L 38-126 N [id number] 13:54:00* Test Item Value Reference Range Interpretation Comments LIPASE (test code = LIP) U/L 23-300 NT PRO-BRAIN NATRIURETIC [id number] 13:54:00* Test Item Value Reference Range Interpretation Comments NT PRO-BRAIN NATRIURETIC PEPTI (test code = PROBNP) pg/mL 0- 299 PROTHROMBIN [id number] 13:40:00* Test Item Value Reference Range Interpretation [...] with Food and Drug Administrationrecommendations. THROMBOPLASTIN TIME [id number] 13:40:00* Test Item Value Reference Range Interpretation Comments THROMBOPLASTIN TIME PARTIAL (test code = PTT) 24.8 SECONDS 23.4-37. 0 N Therapeutic Range for Heparin EFFECTIVE 11/12/12 Heparin IU/mL aPTT Seconds0.3 64.30.7 88.8 CBC W/AUTO [id number] 13:30:00* Test Item Value Reference Range Interpretation [...] 0.06 x10 3/uL 0.0-0.1 N TROPONIN I [id number] 13:17:00* Test Item Value Reference Range Interpretation [...] similarmethodology is used. - XR CHEST 1 [id number] 12:47:00 [place]: St: REG Name: Milli HARPERHEIDYLAVONNE ORTIZ [facility] : 10/20/18 63 Age/S: 59/M [address] Unit #: [id number] Loc: [place] [address] Phys: Jim Brito MD Acct: [id number] Dis Date: Status: REG ER PHONE #: [phone] Exam Date: 11/10/2019 3746 FAX #: [phone] Reason: sob EXAMS: CPT CODE: [id number] XR CHEST 1 V 18130 EXAM: CHEST ONE VIEW INDICATION: Shortness of [...] by Edilia Car MD on 11/10/2019 at 0947 Repor mi and signed by: Edilia Car MD CC: Technologist: LEIDY GRANADOS RT (R) Trnscrd Date/Time/By: 11/10/2019 (4915) : By: t.SDR. MD16 PAGE 1 Signed Report [place]: St: REG Name: LAVONNE CONTRERAS [facility] : 1960 Age/S: 59/M [address] Unit #: [id number] Loc: [place] [address] Phys: Rafi Brito MD Acct: [id number] Dis Date: Status: REG ER PHONE #: [phone] Exam Date: 11/10/20191250 FAX #: Reason: sob EXAMS: CPT CODE: [id number] XR CHEST 1 V 09308 <Continued> Orig Print D/T: S: 11/10/2019 (8707) PAGE 2 Signed Report VITAMIN [id number] 18:08:00* Test Item Value Reference Range Interpretation Comments VITAMIN B12 (test code = VITB12) 176 pg/mL 193-986 L THYROID PROFILE [id number] 18:08:00* Test Item Value Reference Range Interpretation [...] : < 0.35 mIU/mL VIT B1 WHOLE [id number] 18:08:00* Test Item Value Reference Range Interpretation Comments VIT B1 WHOLE BLOOD (test code = GHYR7CE) 119.4 nmol/L 66.5-200.0 Performed At: [facility] [id number] Sanjai MD Ph:[phone] AB HIV 1 15:11:00* Test Item Value Reference Range Interpretation Comments AB HIV 1 2 (test code = GNL50IR) Nonreactive NonReactive It is recognized that currently available assays for thedetection of antibodies to HIV-1 and/or HIV-2 may notdetect all infected individuals. A negative test result doesnot exclude the possibility of exposure to or infection withHIV. HIV antibodies may be undetectable in some stages ofthe infection and in some clinical conditions. VITAMIN [id number] 07:50:00* Test Item Value Reference Range Interpretation Comments VITAMIN B12 (test code = VITB12) 176 pg/mL 193-986 L THYROID PROFILE [id number] 07:50:00* Test Item Value Reference Range Interpretation [...] : < 0.35 mIU/mL VIT B1 WHOLE [id number] 07:50:00* Test Item Value Reference Range Interpretation Comments VIT B1 WHOLE BLOOD (test code = WNXD3MO) nmol/L 87-280 - CTA CHEST FOR [id number] 11:19:00 Name: LAVONNE CONTRERAS [facility] : 1960 Age/S: 59 / M [address] Unit #: [id number] Loc: [place] [address] Phys: Laurent Fletcher MD Acct: [id number] Dis Date: Status: ADM IN PHONE #: [phone] Exam Date: 11/01/2019 1057 FAX #: [phone] Reason: Shortness of breath / Lung disease EXAMS: CPT CODE: [id number] [place] [address] HISTORY: Shortness of breath. COMPARISON: CTA chest [...] PA GE 1 Signed Report THROMBOPLASTIN TIME [id number] 11:06:00* Test Item Value Reference Range Interpretation Comments THROMBOPLASTIN TIME PARTIAL (test code = PTT) 44.8 seconds 23.0-37. 0 H IS PATIENT ON ANTICOAGULANTS? YLIST ANTICOAGULANTS HEPARINSPECIMEN COMMENTS: PLEASE DRAW AT 10:55COMMENTS TO KETTLE GIRL: PLEASE DRAW AT 10:55COMPREHENSIVE METABOLIC [id number] 11:05:00* Test Item Value Reference Range Interpretation [...] reference range due to change in reagent. [id number] 11:05:00* Test Item Value Reference Range Interpretation Comments LIPASE (test code = LIP) 235 U/L 73.0-393.0 N [id number] 11:05:00* Test Item Value Reference Range Interpretation Comments TROPONIN-I (test code = TROPI) <0.015 ng/mL 0-0.045 N COMPREHENSIVE METABOLIC [id number] 10:58:00* Test Item Value Reference Range Interpretation [...] TOTAL (test code = ALKP) IUnit/L 45-117 [id number] 10:58:00* Test Item Value Reference Range Interpretation Comments LIPASE (test code = LIP) U/L 73.0-393.0 CBC W/AUTO [id number] 10:30:00* Test Item Value Reference Range Interpretation [...] NRBC#) 0.00 K/mm3 0.0-0.1 N THROMBOPLASTIN TIME [id number] 03:48:00* Test Item Value Reference Range Interpretation Comments THROMBOPLASTIN TIME PARTIAL (test code = PTT) 110.0 seconds 23.0-37 .0 Results called to [id number] by MADELAINEJMJ1 11/01/19 0348Critical results verified and read back by Nurse? Y IS PATIENT ON ANTICOAGULANTS? YLIST ANTICOAGULANTS HEPARINTHROMBOPLASTIN TIME [id number] 01:07:00* Test Item Value Reference Range Interpretation Comments THROMBOPLASTIN TIME PARTIAL (test code = PTT) 82.7 seconds 23.0-37. 0 H IS PATIENT ON ANTICOAGULANTS? YLIST ANTICOAGULANTS HEPARINSPECIMEN COMMENTS: PLEASE DRAW AT 02:28COMMENTS TO KETTLE GIRL: PLEASE DRAW AT 02:28TROPONIN-I 2019-10-31 22:03:00* Test Item Value Reference Range Interpretation Comments TROPONIN-I (test code = TROPI) <0.015 ng/mL 0-0.045 N COMMENTS TO KETTLE GIRL: COLLECT 3 HOURS AFTER PREVIOUS TOLAMGBKPBLBWZ-[id number] 19:26:00* Test Item Value Reference Range Interpretation Comments TROPONIN-I (test code = TROPI) <0.015 ng/mL 0-0.045 N COMMENTS TO KETTLE GIRL: COLLECT 3 HOURS AFTER PREVIOUS SAMPLETHROMBOPLASTIN TIME [id number] 19:19:00* Test Item Value Reference Range Interpretation Comments THROMBOPLASTIN TIME PARTIAL (test code = PTT) 25.0 seconds 23.0-37. 0 N IS PATIENT ON ANTICOAGULANTS? YLIST ANTICOAGULANTS HEPARINB-TYPE NATRIURETIC [id number] 12:55:00* Test Item Value Reference Range Interpretation Comments B-TYPE NATRIURETIC PEPTIDE (test code = BNP) 39.16 pgram/mL 0-100 N - XR CHEST 1 [id number] 12:42:00 FAX: Maia Roy [phone] [place]: B St: PRE Name: LAVONNE BAEZA [facility] : [birth year] 63 Age/S: 59/M [address] [facility] Unit #: [id number] Loc: [place] [address] Phys: Maia Irvin Acct: [id number] Dis Date: Status: PRE ER PHONE #: [phone] Exam Date: 10/31/2019 1225 FAX #: [phone] Reason: SHORTNESS OF BREATH EXAMS: CPT CODE: [id number] XR CHEST 1 V 20032 HISTORY: SHORTNESS OF BREATH TECHNIQUE: AP chest x-ray COMPARISON: 10/15/19 FINDINGS: No airspace consolidation or pleural effusion. Cardio megaly. Mediastinal silhouette is unremarkable. Degenerative changes of th e spine and shoulders. IMPRESSION: No ra diographic evidence of acute cardiopulmonary process. LOCATION: [facility] at 1242 Reported and signed by: Sia Finney D.O. CC: Maia Irvin MD Technologist: Soha Johnson(Joe) Trnscrd Date/Time/By: 10/31/2019 (2172) : By: TannaLDP1 Orig Print D/ T: S: 10/31/2019 (2083) PAGE 1 Si gned Report Coronavirus 2019 nCoV Bedside 2019-10-31 12:39:00* Test Item Value Reference Range Interpretation Comments Coronavirus 2019 nCoV Bedside (test code = [id number]) Negative Is patient requiring admission or transfer? YIndication for rapid COVID-19 testi ng: High Clinical SuspicionBASIC METABOLIC [id number] 12:25:00* Test Item Value Reference Range Interpretation [...] code = CA) 9.4 mg/dL 8.5-10.1 N [id number] 12:25:00* Test Item Value Reference Range Interpretation Comments TROPONIN-I (test code = TROPI) <0.015 ng/mL 0-0.045 N CBC W/AUTO [id number] 12:11:00* Test Item Value Reference Range Interpretation [...] NRBC#) 0.00 K/mm3 0.0-0.1 N COMPREHENSIVE METABOLIC [id number] 07:10:00* Test Item Value Reference Range Interpretation [...] due to change in reagent. COMPREHENSIVE METABOLIC [id number] 06:57:00* Test Item Value Reference Range Interpretation [...] code = ALKP) IUnit/L 45-117 CBC W/AUTO [id number] 06:30:00* Test Item Value Reference Range Interpretation [...] code = MDIFF) NO Coronavirus 2019 nCoV Rjczych0688-96-05 13:24:00* Test Item Value Reference Range Interpretation Comments Coronavirus 2019 nCoV Bedside (test code = COVNONPUIBED) Negative BASIC METABOLIC [id number] 07:25:00* Test Item Value Reference Range Interpretation [...] This LDL result is a direct measurement.========= [id number]-[id number] 07:02:00* Test Item Value Reference Range Interpretation Comments TROPONIN-I (test code = TROPI) <0.015 ng/mL 0-0.045 N COMMENTS TO KETTLE GIRL: COLLECT 3 HOURS AFTER PREVIOUS SAMPLEBASIC METABOLIC [id number] 06:59:00* Test Item Value Reference Range Interpretation [...] code = LDL) mg/dL 100-129 CBC W/AUTO [id number] 06:21:00* Test Item Value Reference Range Interpretation [...] DIFF REQUIRED (test code = MDIFF) NO [id number] 03:52:00* Test Item Value Reference Range Interpretation Comments TROPONIN-I (test code = TROPI) <0.015 ng/mL 0-0.045 N COMMENTS TO KETTLE GIRL: COLLECT 3 HOURS AFTER PREVIOUS SAMPLEB-TYPE NATRIURETIC [id number] 21:07:00* Test Item Value Reference Range Interpretation Comments B-TYPE NATRIURETIC PEPTIDE (test code = BNP) 8.8 pgram/mL 0-100 N [id number] 20:41:00* Test Item Value Reference Range Interpretation Comments GLYCOSYLATED HEMOGLOBIN (HA1C) (test code = GLYHGB) 5.6 % HbA1 SUGGESTED DIAGNOSIS: HbA1C (%) Diabetic >6.4Prediabetes 5.7 - 6.4Normal <5.7 ESTIMATED AVERAGE GLUCOSE (test code = EAG) 114 MG/DL [id number] 20:30:00* Test Item Value Reference Range Interpretation Comments MAGNESIUM (test code = MAG) 2.2 mg/dL 1.8-2.4 N [id number] 20:30:00* Test Item Value Reference Range Interpretation Comments ALCOHOL (test code = ALC) 5 mg/dL 0.0-3.0 H -- INTERPRETIVE DATA NOTE: POSITIVE SCREENING RESULTS SHOULD BE CONSIDERED PRESUMPTIVE.WHEN COLLECTED FOR MEDICAL PURPOSES ONLY. SPECIMEN WILL NOTBE COLLECTED BY CHAIN OF CUSTODY.IF A CONFIRMATION OF POSITIVE RESULTS IS DESIRED, ACONFIRMATION TEST MUST BE REQUESTED BY THE PHYSICIAN AT ANADDITIONAL CHARGE TO THE PATIENT. [id number] 20:29:00* Test Item Value Reference Range Interpretation Comments MAGNESIUM (test code = MAG) 2.2 mg/dL 1.8-2.4 N [id number] 20:29:00* Test Item Value Reference Range Interpretation Comments ALCOHOL (test code = ALC) mg/dL 0-3 - CTA [id number] 19:08:00 Name: LAVONNE CONTRERAS [facility] : 1960 Age/S: 58 / M [address] [facility] Unit #: [id number] Loc: [place] [address] Phys: Bob Bradley DO Acct: [id number] Dis Date: Status: REG ER PHONE #: [phone] Exam Date: 10/15/20191899 FAX #: [phone] Reason: chest pain/lightheaded - evaluate aorta EXAMS: CPT CODE: [id number] CTA CHEST 66978 REASON FOR EXAM: chest pain/lightheaded - evaluate aorta EXAM ORDER DATE: 10/15/2019 5:31 PM Ordering: Bob Bradley DO Attending:Bob Bradley DO Location:[facility] PROCEDURE: - CTA CHEST FINDINGS: CT [...] RT(R),(MR),(CT); CTDI: DLP: Trnscb Date/Time: 10/15/2019 (1907) [email or web address] Orig Print D/T: S: 10/15/2019 (1910) PAGE [...] code = CA) 9.4 mg/dL 8.5-10.1 N [id number] 18:28:00* Test Item Value Reference Range Interpretation Comments TROPONIN-I (test code = TROPI) <0.015 ng/mL 0-0.045 N - XR CHEST 1 [id number] 18:24:00 FAX: Bob Bradley DO [place]: B St: REG Name: Milli MACIASLAVONNE ELBERT [facility] : [birth year] 63 Age/S: 58/M [address] [facility] Unit #: [id number] Loc[place] [id number] Phys: Bob Bradley DO Acct: [id number] Dis Date: Status: REG ER PHONE #: [phone] Exam Date: 10/15/20191821 FAX #: [phone] Reason: CHEST PAIN EXAMS: CPT CODE: [id number] XR CHEST 1 V 99624 REASON FOR EXAM: CHEST KACIE N EXAM ORDER DATE: 10/15/2019 5:07 PM Ordering: Bob Bradley DO Attending:Bob Bradley DO Location:[facility] CO OCEDURE: - XR CHEST 1 V COMPARISON: [...] CC: Bob Bradley DO Technologist: ZEYNEP SCHILLING Trnivanard Date/Time/By: 10/15/2019 (1823) : By: TannaVTL Ayaan g Print D/T: S: 10/15/2019 (1826) [...] code = CA) 9.4 mg/dL 8.5-10.1 N [id number] 18:20:00* Test Item Value Reference Range Interpretation Comments TROPONIN-I (test code = TROPI) ng/mL 0-0.045 CBC W/O [id number] 18:14:00* Test Item Value Reference Range Interpretation [...] = MPV) 9.2 fL 6.7-11.0 N Urine [id number] 14:46:57* Test Item Value Reference Range Interpretation Comments Urine culture isolate (test code = 22887-3) Mixed sisi <=10-3 col/ cc Specimen InformationSpecimen Source: UrineSpecimen Site: [facility], with reflex to culture 2019-08-25 11:59:15* Test Item Value Reference Range Interpretation Comments Specimen site (test code = 7736225) Clean catch Color, UA (test code = 5778-6) Yellow Appearance, UA (test code = 5767-9) Slightly-Cloudy Specific gravity, UA (test code = 5811-5) 1.019 1.001-1.035 pH, UA (test code = 5803-2) 7.0 5.0-8.5 Protein, UA (test code = 22020-2) Negative Negative Glucose, UA (test code = 02428-1) Negative Negative Ketones, UA (test code = 2514-8) Negative Negative Bilirubin, UA (test code = 5770-3) Negative Negative Blood, UA (test code = 5794-3) Negative Negative Nitrite, UA (test code = 5802-4) Negative Negative Urobilinogen, UA (test code = 39394-6) Negative <2.0 Leukocyte esterase, UA (test code = 5799-2) Negative Negative Epithelial cells, UA (test code = 5787-7) Many /HPF WBC, UA (test code = 5821-4) 7 0- 1 /HPF H RBC, UA (test code = 39576-4) 2 0- 5 /HPF Bacteria, UA (test code = 11079-7) None seen None seen Yeast, UA (test code = 58865-9) None seen Yeast with pseudohyphae, UA (test code = 83262-1) None seen Lab Interpretation (test code = 94181-8) Abnormal [facility] xckse2001-07-03 11:17:36* Test Item Value Reference Range Interpretation Comments Sodium (test code = 2951-2) 140 135- 150 mEq/L Potassium (test code = 2823-3) 4.9 3.5- 5.0 mEq/L Chloride (test code = 2075-0) 105 98- 112 mEq/L CO2 (test code = 8-9) 23 mmol/L 24-31 L Anion gap (test code = 97553-0) 12@ANIO 7- 15 mEq/L BUN (test code = 3094-0) 14 mg/dL 7-18 Creatinine (test code = 2160-0) 1.00 mg/dL 0.7-1.2 Glucose (test code = 2345-7) 101 mg/dL 65-100 H Calcium (test code = 50348-4) 9.9 mg/dL 8.3-10.2 Protein (test code = [...] <0.3 0.2-1.2 Lab Interpretation (test code = 35111-3) Abnormal [facility] MethodistEstimated [id number] 11:17:36* Test Item Value Reference Range Interpretation Comments Estimated GFR (test code = 5488) 83 mL/min/1.73 m2 Catergory Units InterpretationG1 >=90 Normal or highG2 60-89 Mildly jugeeffrsL4d 45-59 Mildly to moderately lplztcaxiC0z 30-44 Moderately to severely decreasedG4 15-29 Severely decreasedG5 <15 Kidney failureThe eGFR was calculated using the Chronic Kidney Disease Epidemiology Collaboration (CKD-EPI) equation. Interpretation is based on recommendations of the National Kidney Foundation-Kidney Disease Outcomes Quality Initiative (NKF-KDOQI) published in 2014. [facility] MethodistCBC with platelet and clwtcxydotuu0752-35-69 11:02:02* Test Item Value Reference Range Interpretation Comments WBC (test code = 37846-4) 6.3 4.2- 11.0 k/uL RBC (test code = 56703-2) 4.63 m/uL 4.04-5.86 HGB (test code = 718-7) 14.0 g/dL 13-17.3 HCT (test code = 4544-3) 42.5 % 34-45 MCV (test code = 787-2) 91.8 fL 80-98 MCH (test code = 785-6) 30.2 pg 27-34 MCHC (test code = 786-4) 32.9 g/dL 31.5-36.5 RDW - SD (test code = 91271-2) 47.5 fL 37-51 MPV (test code = 56671-0) 9.3 fL 7.4-10.4 Platelet count (test code = 22046-9) 192 150- 400 k/uL Nucleated RBC (test code = 07075-7) 0.00 /100 WBC Neutrophils (test code = 71485-5) 51.3 % 36-66 Lymphocytes (test code = 51405-1) 36.4 % 24-44 Monocytes (test code = 74068-8) 9.2 % 0-6 H Eosinophils (test code = 30935-8) 1.7 % 0-6 Basophils (test code = 35470-3) 0.8 % 0-1.2 Immature granulocytes (test code = 23353-0) 0.6 % 0-1 Lab Interpretation (test code = 92049-9) Abnormal [facility]- XR CHEST 1 [id number] 07:46:00 FAX: Audrey Perez [phone] [place]: St: REG Name: LAVONNE BAEZA [facility] : [birth year] Age/S: 58/M [address] Unit #: [id number] Loc: [place] [address] Phys: Audrey Perez [employer] Acct: [id number] Dis Date: Status: REG ER PHONE #: [phone] Exam Date: 07/29/2019730 FAX #: [phone] Reason: cough, fever, sob EXAMS: CPT CODE: [id number] XR CHEST 1 V 09043 EXAM: XR Chest 1 View INDICATION: cough, [...] by: VALENTINA WAGNER MD CC: Audrey Perez [employer] Technologist: LEIDY GRANADOS RT (R) Trnscrd Date/Time/By: 0 (0746) : By: [email or web address] PAGE 1 Signed Report FAX: Audrey Perez [phone] [place]: St: REG Name: LAVONNE CONTRERAS [facility] [place] : 1960 Age/S: 58/M [address] Unit #: [id number] Loc: [place] [address] Phys: Audrey Perez NP cct: [id number] Dis Date: Status: REG ER PHONE #: [phone] Exam Date: 07/29/2019730 FAX #: [phone] Reason: cough, fever, sob EXAMS: CPT CODE: [id number] XR CHEST 1 V 22641 < Continued> Orig Print D/T: S: 07/29/2019 (0749) PAGE 2 Signed Report B-TYPE NATRIURETIC [id number] 16:31:00* Test Item Value Reference Range Interpretation Comments B-TYPE NATRIURETIC PEPTIDE (test code = BNP) 69.62 pgram/mL 0-100 N BASIC METABOLIC [id number] 16:27:00* Test Item Value Reference Range Interpretation [...] CA) 9.7 mg/dL 8.5-10.1 N HEPATIC FUNCTION [id number] 16:27:00* Test Item Value Reference Range Interpretation [...] reference range due to change in reagent. [id number]-[id number] 16:27:00* Test Item Value Reference Range Interpretation Comments TROPONIN-I (test code = TROPI) <0.015 ng/mL 0-0.045 N BASIC METABOLIC [id number] 16:12:00* Test Item Value Reference Range Interpretation [...] code = CA) mg/dL 8.5-10.1 HEPATIC FUNCTION [id number] 16:12:00* Test Item Value Reference Range Interpretation [...] TOTAL (test code = ALKP) IUnit/L 45-117 [id number] 16:12:00* Test Item Value Reference Range Interpretation Comments TROPONIN-I (test code = TROPI) ng/mL 0-0.045 CBC W/O [id number] 15:59:00* Test Item Value Reference Range Interpretation [...] MPV) 9.5 fL 6.7-11.0 N CBC W/O [id number] 15:57:00* Test Item Value Reference Range Interpretation [...] MPV) fL 6.7-11.0 - XR CHEST 1 [id number] 14:10:00 FAX: Aram Cooney MD [place]: B St: PRE Name: LAVONNE BAEZA [facility] : [birth year] Age/S: 58/M [address] [facility] Unit #: [id number] Loc: [place] [address] Phys: Aram Cooney MD Acct: [id number] Dis Date: Status: PRE ER PHONE #: [phone] Exam Date: 07/16/2019 1359 FAX #: [phone] Reason: Shortness of Breath EXAMS: CPT CODE: [id number] XR CHEST 1 V 95988 REASON FOR EXAM: Shortness of Breath Exam Order Date: 07/16/2019 1:40 PM Bernadette fuentes M.D.: Aram Cooney MD PROCEDURE: - XR CHEST [...] cholecystectomy. IMPRESSION: No acute cardiopulmonary process. Location: [facility] E lectronically Signed by Joe Vu MD on 07/16/2019 at 1410 Reported and signed by: Joe Vu MD CC: Aram Cooney MD Technologist: Sahara Lino RT(R) Trnscrd Date/Time/By: 07/16/2019 (1410) : By: [email or web address] 1 Orig Print D/T: S: 07/16/2019 (8103) PAGE [address] Renal Stone Paoaodmq4796-09-30 19:20:55Hm Interface, Radiology Results 06/27/2019 7:24 PM CSTEXAMINATION: CT RENAL STONE [...] MRI would be useful for further ev aluation.[facility]-9PV12569HPRlwtskh MethodistLipase rrsxo0258-95-70 18:08:05* Test Item Value Reference Range Interpretation Comments Lipase (test code = 3040-3) 61 U/L 13-60 H Lab Interpretation (test code = 21073-1) Abnormal [facility]un MethodistTHYROID STIMULATING [id number] 08:40:00* Test Item Value Reference Range Interpretation Comments THYROID STIMULATING HORMONE (test code = TSH) 1.790 uIU/mL 0.36-3.7 4 N TSH REFERENCE RANGES: EUTHYROID: 0.35 - 4.3 mIU/mL HYPO : > 5.5 mIU/mL HYPER : < 0.35 mIU/mL URINALYSIS [id number] 01:17:00* Test Item Value Reference Range Interpretation Comments UA COLOR (test code = COLU) [place] YELLOW UA APPEARANCE (test code = APPU) [...] MANY #/LPF FEW A Urine Source? CatheterURINALYSIS [id number] 01:15:00* Test Item Value Reference Range Interpretation Comments UA COLOR (test code = COLU) [place] YELLOW UA APPEARANCE (test code = APPU) [...] per HPF NONE Urine Source? CatheterBASIC METABOLIC [id number] 22:33:00* Test Item Value Reference Range Interpretation [...] CA) 9.0 mg/dL 8.5-10.1 N BASIC METABOLIC [id number] 22:28:00* Test Item Value Reference Range Interpretation [...] code = CA) mg/dL 8.5-10.1 CBC W/AUTO [id number] 22:09:00* Test Item Value Reference Range Interpretation [...] code = BA#) K/mm3 0.0-0.2 CBC W/AUTO [id number] 22:09:00* Test Item Value Reference Range Interpretation [...] MDIFF) NO - CT ABD PELVIS W/O [id number] 21:48:00 Name: LAVONNE CONTRERAS [facility] : 1960 Age/S: 58 / M [address] [facility] Unit #: [id number] Loc: [place] [address] Phys: Tamara Castro MD Acct: [id number] Dis Date: Status: REG ER PHONE #: [phone] Exam Date: 01/28/2019 210 FAX #: [phone] Reason: ttp lower abdomen EXAMS: CPT CODE: [id number] CT ABD PELVIS W/O CONT 34709 EXAM: CT of the abdomen and pelvis [...] Pak CTDI: DLP: Trnscb Date/Time: 01/28/2019 (2147) t.SDR.GRW Orig Print D/T: S: 01/28/2019 (8923) PAGE 1 Signed Report - DUP AB/PEL/SC/EEB1850-02-62 14:14:00 [place]: St: REG Name: LAVONNE BAEZA [facility] : [birth year] Age/S: 58/M [address] Unit #: [id number] Loc: [place] [address] Phys: Rigo Ayoub MD Acct: [id number] Dis Date: Status: REG ER PHONE #: [phone] Exam Date: 01/25/2019 5993 FAX #: [phone] Reason: SEE REASON ON US SCROTUM AND CNT EXAMS: CPT CODE: [id number] DUP AB/PEL/SC/LTD 71790 EXAM: - US SCROTUM AND CNTS, - [...] Jayde Garcia MD CC: Technologist: Duane Donaldson [facility] Trnscrd Date/Time/By: 01/25/2019 (5137) : By: [email or web address] PAG E 1 Signed Report [place]: St: REG Name: DIANEOpal [facility] : 1960 Age/ S: 58/M [address] Unit #: [id number] Loc: [place] [address] Phys: Rigo Ayoub MD Acct: [id number] Dis Date: Status: REG ER PHONE #: [phone] Exam Date: 01/25/2019 4570 FAX #: [phone] Reason: SEE REASON ON US SCROTUM AND CNT EXAMS: CPT CODE: [id number] DUP AB/PEL/SC/LTD 12706 <Continued> Orig Print D/T: S: 01/25/2019 (6109) PAGE 2 Signed Report - US SCROTUM AND [id number] 14:14:00 [place]: St: REG Name: LAVONNE BAEZA [facility] : [birth year] Age/S: 58/M [address] Unit #: [id number] Loc: [place] [address] Phys: Rigo Ayoub MD Acct: [id number] Dis Date: Status: REG ER PHONE #: [phone] Exam Date: 01/25/2019 1430 FAX #: [phone] Reason: pain EXAMS: CPT CODE: [id number] US SCROTUM AND CNTS 52658 EXAM: - US SCROTUM AND CNTS, - [...] Jayde Garcia MD CC: Technologist: Duane Donaldson MS Trnscrd Date/Time/By: 01/25/2019 (1412) : By: [email or web address] PAG E 1 Signed Report [place]: St: REG Name: Opal CONTRERAS [facility] : 1960 Age/ S: 58/M [address] Unit #: [id number] Loc: [place] [address] Phys: Rigo Ayoub MD Acct: [id number] Dis Date: Status: REG ER PHONE #: [phone] Exam Date: 01/25/2019 1330 FAX #: [phone] Reason: pain EXAMS: CPT CODE: [id number] US SCROTUM AND CNTS 08330 <Continued> Orig Print D/T: S: 01/25/2019 (7340) PAGE 2 Signed Report PROCALCITONIN (PCT)2019-01-25 12:11:00* [...] between 0.5-2.0 NG/ML are obtained. BASIC METABOLIC [id number] 11:39:00* Test Item Value Reference Range Interpretation [...] CA) 9.2 mg/dL 8.4-10.2 N LIVER FUNCTION [id number] 11:39:00* Test Item Value Reference Range Interpretation [...] code = ALKP) 129 U/L 38-126 H [id number] 11:39:00* Test Item Value Reference Range Interpretation Comments LIPASE (test code = LIP) 272 U/L 23-300 N TROPONIN I [id number] 11:38:00* Test Item Value Reference Range Interpretation [...] valid only if similarmethodology is used. PROTHROMBIN [id number] 11:34:00* Test Item Value Reference Range Interpretation [...] with Food and Drug Administrationrecommendations. THROMBOPLASTIN TIME [id number] 11:34:00* Test Item Value Reference Range Interpretation Comments THROMBOPLASTIN TIME PARTIAL (test code = PTT) 29.4 SECONDS 23.4-37. 0 N Therapeutic Range for Heparin EFFECTIVE 11/12/12 Heparin IU/mL aPTT Seconds0.3 64.30.7 88.8 UA RFLX MICR CULT IF [id number] 11:30:00* Test Item Value Reference Range Interpretation [...] for culture: Temperature > 100.4 FCBC W/AUTO [id number] 11:25:00* Test Item Value Reference Range Interpretation [...] 0.08 x10 3/uL 0.0-0.1 N LACTIC ACID [id number] 11:22:00* Test Item Value Reference Range Interpretation Comments LACTIC ACID POC (test code = LACTP) 1.71 mmol/L 0.7-2.0 N - XR CHEST 1 [id number] 09:48:00 [place]: St: REG Name: LAVONNE BAEZAwood : [birth year] Age/S: 58/M [address] Unit #: [id number] Loc: [place] [address] Phys: Rigo Ayoub MD Acct: [id number] Dis Date: Status: REG ER PHONE #: [phone] Exam Date: 01/25/2019 09 FAX #: [phone] Reason: CODE SEPSIS EXAMS: CPT CODE: [id number] XR CHEST 1 V 65958 EXAM: - XR CHEST 1 V Location [...] : By: [email or web address] PAGE 1 Signed Report [place]: St: REG Name: [place]ONNE [place]ERASwood : 1960 Age/S: 58/M [address] Unit #: [id number] Loc: [place] [address] Phys: Rigo Ayoub MD Acct: [id number] Dis Date: Status: R NIDIA ER PHONE #: [phone] Exam Date: 0 01/25/2019 09 FAX #: [phone] Reason: CODE SEPSIS EXAMS: CPT CODE: [id number] XR CHEST 1 V 29196 <Continued> Orig Print D/T: S: 01/25/2019 (0902) PAGE 2 Signed Report PROCALCITONIN (PCT)2019-01-24 22:20:00* [...] if anyconcentrations between 0.5-2.0 NG/ML are obtained. [id number] 22:09:00* Test Item Value Reference Range Interpretation Comments D-DIMER (test code = DDIMER) 1218 ng/mLFEU 0-500 HH Critical Value reported toFirst Name:[id number] Last Name:RESULTS READ BACK AND VERIFIEDby CALIYAYaima, on 01/24/19, @ 7679.THE DDIMER METHOD IS USED IN THE EXCLUSION OF DEEP VEINTHROMBOSIS AND/OR PULMONARY EMBOLISM AND THE CLINICAL CUT-OFF VALUE FOR EXCLUSION (500 NG/ML FEU) OF THESE CONDITIONSIS VALIDATED BY THE ASSOCIATE PROJECT MANAGER OF THE METHOD. A NEGATIVE DDIMER RESULT WHEN COMBINED WITH A CLINICALASSESSMENT OF LOW PRETEST PROBABILITY HAS BEEN SHOWN TO HAVEA HIGH NEGATIVE PREDICTIVE VALUE OF DVT OR PE. D-DIMER VALUES >500 ng/mL ARE NOT DIAGNOSTIC FOR DVT,PEOR DIC WITHOUT OTHER CONFIRMATORY TESTS AND APPROPRIATECLINICAL EVALUATIONS. [id number] 22:01:00* Test Item Value Reference Range Interpretation Comments LIPASE (test code = LIP) 196 U/L 23-300 N LACTIC ACID [id number] 21:57:00* Test Item Value Reference Range Interpretation Comments LACTIC ACID POC (test code = LACTP) 1.18 mmol/L 0.7-2.0 N - CT ABD PELVIS W/O [id number] 21:54:00 [place]: St: REG Name: LAVONNE HEALY [facility] : 2 Age/S: 58/M [address] Unit: [id number] Loc: [place] [address] Phys: Blade Howard MD Acct: [id number] Dis Date: Status: REG ER PHONE #: [phone] Exam Date: 01/24/2019 2135 FAX #: [phone] Reason: ABDOMINAL PAIN POST SUPRAPUBIC CATHETER EXAMS: CPT CODE: [id number] CT ABD PELVIS W/O CONT 90153 CT Abdomen and Pelvis without cont rast. Location: Clinical indication: 58-year-old with abdominal pain post suprapubic catheter. Comparison: No ne Technique: Computed axial images were obtained from the [facility] through the pubic symphysis without IV contrast. [...] i n the right lower quadrant. Pelvis: [place] for penile prosthese s are present in [...] MRI. PAGE 1 Signed Repor t (CONTINUED) [place]: St: REG Name: LAVONNE CONTRERAS [facility] : 1960 Age/S: 58/M [address] Unit: [id number] Loc: [place] [address] Phys: Blade Howard MD Acct: [id number] Dis Date: Status: REG ER PHONE #: [phone] Exam Date: 01/24/20192134 FAX #: [phone] Reason: ABDOMINAL PAIN POST SUPRAPUBIC CATHETER EXAMS: CPT CODE: [id number] CT ABD PELVIS W/O CONT 93626 < Continued> at 5444 Reported and signed by: Tony Forbes MD CC: Technologist: JOSE LOOMIS [facility] [place] Dt/Tm: 01/24/2019 (6093) ThomasR.RB24 Orig Print D/T: S: 01/24/2019 (2157 PAGE 2 Signed Report URINALYSIS [id number] 21:17:00* Test Item Value Reference Range Interpretation [...] YEASTUBD) 1+ /HPF None A BASIC METABOLIC [id number] 21:13:00* Test Item Value Reference Range Interpretation [...] CA) 9.4 mg/dL 8.4-10.2 N CBC W/AUTO [id number] 20:57:00* Test Item Value Reference Range Interpretation [...] 0.10 x10 3/uL 0.0-0.1 N CBC W/MANUAL [id number] 13:41:00* Test Item Value Reference Range Interpretation [...] (test code = PLTMORPH) NORMAL BASIC METABOLIC [id number] 11:05:00* Test Item Value Reference Range Interpretation [...] CA) 8.7 mg/dL 8.5-10.1 N BASIC METABOLIC [id number] 10:42:00* Test Item Value Reference Range Interpretation [...] code = CA) mg/dL 8.5-10.1 CBC W/MANUAL [id number] 10:11:00* Test Item Value Reference Range Interpretation [...] MORPHOLOGY (test code = PLTMORPH) CBC W/MANUAL [id number] 10:11:00* Test Item Value Reference Range Interpretation [...] MORPHOLOGY (test code = PLTMORPH) CBC W/MANUAL [id number] 10:11:00* Test Item Value Reference Range Interpretation [...] MORPHOLOGY (test code = PLTMORPH) CBC W/MANUAL [id number] 10:10:00* Test Item Value Reference Range Interpretation [...] MORPHOLOGY (test code = PLTMORPH) CBC W/MANUAL [id number] 10:10:00* Test Item Value Reference Range Interpretation [...] MORPHOLOGY (test code = PLTMORPH) BASIC METABOLIC [id number] 08:57:00* Test Item Value Reference Range Interpretation [...] CA) 7.9 mg/dL 8.5-10.1 L BASIC METABOLIC [id number] 08:49:00* Test Item Value Reference Range Interpretation [...] (test code = CA) mg/dL 8.5-10.1 VANCOMYCIN [id number] 22:10:00* Test Item Value Reference Range Interpretation Comments VANCOMYCIN TROUGH (test code = VANCT) 16.2 ug/mL 10-20 N BASIC METABOLIC [id number] 19:38:00* Test Item Value Reference Range Interpretation [...] CA) 8.5 mg/dL 8.5-10.1 N BASIC METABOLIC [id number] 19:31:00* Test Item Value Reference Range Interpretation [...] code = CA) mg/dL 8.5-10.1 BASIC METABOLIC [id number] 05:50:00* Test Item Value Reference Range Interpretation [...] CA) 8.1 mg/dL 8.5-10.1 L BASIC METABOLIC [id number] 05:39:00* Test Item Value Reference Range Interpretation [...] code = CA) mg/dL 8.5-10.1 CBC W/O [id number] 05:34:00* Test Item Value Reference Range Interpretation [...] = MPV) 9.5 fL 6.7-11.0 N VANCOMYCIN [id number] 17:36:00* Test Item Value Reference Range Interpretation Comments VANCOMYCIN TROUGH (test code = VANCT) 22.6 ug/mL 10-20 H BASIC METABOLIC [id number] 10:42:00* Test Item Value Reference Range Interpretation [...] CA) 8.5 mg/dL 8.5-10.1 N BASIC METABOLIC [id number] 10:35:00* Test Item Value Reference Range Interpretation [...] mg/dL 8.5-10.1 - XR ABDOMEN AP 1 [id number] 10:17:00 FAX: Wili Eckert MD [phone] [place]: St: ADM FAX: Amarjit Sorto MD [phone] Name: LAVONNE CONTRERAS [facility] : 1960 Age/S: 58/M [address] [facility] Unit #: [id number] Loc: [place] [address] Phys: Amarjit Don MD Acct: [id number] Dis Date: Status: ADM IN PHONE #: [phone] Exam Date: 01/16/2019 1007 FAX #: [phone] Reason: ABCESS IN TESTICLE, P OSSIBLE INFECTION OF IMPLA EXAMS: CPT CODE: [id number] XR ABDOMEN AP 1 V 08780 HISTORY: Abscess and testicle. COMPARISON: CT scan [...] Christy Baeza RT(R) Trnscrd Date/Time/By: 01/17/20 19 (4877) : By: [email or web address] Orig Print D/T: S: 01/16/2019 (4431) PAGE 1 Signed Report VANCOMYCIN [id number] 09:31:00* Test Item Value Reference Range Interpretation Comments VANCOMYCIN TROUGH (test code = VANCT) 8.7 ug/mL 10 L - USG NDL PLACEMENT (Biopsy/Asp)2019-01-16 09:04:00 Name: LAVONNE CONTRERAS [facility] : 1960 Age/S: 58 / M [address] [facility] Unit #: [id number] Loc: [place] [address] Phys: Wili Eckert MD Acct: [id number] Dis Date: Status: ADM IN PHONE #: [phone] Exam Date: 01/15/2019 1658 FAX #: [phone] Reason: EXAMS: CPT CODE: [id number] USG NDL PLACEMENT (Biopsy/Asp) 89000 Fluoro Time: DAP (Gy m2): Air Kerma [...] tract was dilated to accept a 14 Finnish pigtail tube. The tube was connected to [...] CC: Wiliam Eckert MD Technologist: Franchesca Colby Trnscb Date/Time: 01/16/2019 (09) t.ALTAFR.VTL Orig Print D/T: S: 01/16/2019 (07) PAGE 1 Signed Report - XR FLUORO NDL 2019-01-16 09:04:00 Name: LAVONNE CONTRERAS [facility] : 1960 Age/S: 58 / M [address] [facility] Unit #: [id number] Loc: [place] [address] Phys: Wili Eckert MD Acct: [id number] Dis Date: Status: ADM IN PHONE #: [phone] Exam Date: 01/15/2019 1658 FAX #: [phone] Reason: URINARY RETENTION EXAMS: CPT CODE: [id number] XR FLUORO NDL 07844 Fluoro Time: 40 DAP (Gy m2): 4.438 [...] tract was dilated to accept a 14 Finnish pigtail tube. The tube was connected to a [place] back and secured to the subcutaneous tissue with #2 silk sutures MEDICATIONS: None COMPLICATIONS: None Blood loss: Less than 5 mL Fluoroscopic time: 40 seconds Radiation dose: 11.5 mGy IMPRESSION: Technically successful percutaneous placement of suprapubic catheter at 0904 Reported and signed by: Castillo August M.D. CC: Wili Eckert MD Technologist: Franchesca Colby Trnorb Date/Time: 01/16/2019 (903) Michael Orig Print D/T: S: 01/16/2019 (906) PAGE 1 Signed Report BASIC METABOLIC [id number] 08:46:00* Test Item Value Reference Range Interpretation Comments SODIUM (test code = NA) TEST NOT PERFORMED mmol/L 136-145 N Previously reported result: 139 mmol/LEdited by: EDGARD on 01/16/19: 0844: NA previously reported as: 139 mmol/L POTASSIUM (test code = K) TEST NOT PERFORMED mmol/L 3.5-5.1 N Previously reported result: 4.6 mmol/LEdited by: EDGARD on 01/16/19: 0845: K previously reported as: 4.6 mmol/L CHLORIDE (test code = CL) TEST NOT PERFORMED mmol/L 98-107 N Previously reported result: 106.0 mmol/LEdited by: EDGARD on 01/16/19: 0845: CL previously reported as: 106.0 mmol/L [...] TEST NOT PERFORMED mg/dL 8.5-10.1 BASIC METABOLIC [id number] 08:41:00* Test Item Value Reference Range Interpretation [...] code = CA) mg/dL 8.5-10.1 CBC W/AUTO [id number] 07:34:00* Test Item Value Reference Range Interpretation [...] REQUIRED (test code = MDIFF) NO PROTHROMBIN [id number] 13:44:00* Test Item Value Reference Range Interpretation [...] (2.5-3.5) IS PATIENT ON ANTICOAGULANTS? NCOMMENTS TO KETTLE GIRL: NEED STAT PLEASE PT FOR SURGERY A.S.A.PTHROMBOPLASTIN TIME [id number] 13:44:00* Test Item Value Reference Range Interpretation Comments THROMBOPLASTIN TIME PARTIAL (test code = PTT) 29.9 seconds 25.0-36. 5 N IS PATIENT ON ANTICOAGULANTS? NCOMMENTS TO KETTLE GIRL: NEED STAT PLEASE PT FOR SURGERY A.S.A.P- US PELVIS LTD OR [id number] 13:09:00 Name: LAVONNE CONTRERAS [facility] : 1960 Age/S: 58 / M [address] [facility] Unit #: [id number] Loc: [place] [address] Phys: Castillo August MD Acct: [id number] Dis Date: Status: ADM IN PHONE #: [phone] Exam Date: 01/15/2019 1236 FAX #: [phone] Reason: SCAN BLADDER PRIOR FOR SUPRA PUBIC CATHETER AUGUSTUS EXAMS: CPT CODE: [id number] US PELVIS LTD OR FU [id number] REASON FOR EXAM: SCAN BLADDER PRIOR FOR [...] Wili Eckert MD Technologist: CAROLINE WYNN RT(R),RUI Trnscb Date/Time: 01/15/2019 (9867) Michael Orig Print D/T: S: 01/15/2019 (5692) Probe: PAGE 1 Signed Report BASIC METABOLIC [id number] 03:50:00* Test Item Value Reference Range Interpretation [...] CA) 8.7 mg/dL 8.5-10.1 N COMPREHENSIVE METABOLIC [id number] 10:05:00* Test Item Value Reference Range Interpretation [...] due to change in reagent. COMPREHENSIVE METABOLIC [id number] 09:58:00* Test Item Value Reference Range Interpretation [...] TOTAL (test code = ALKP) IUnit/L 45-117 [id number] 08:18:00* Test Item Value Reference Range Interpretation Comments GLYCOSYLATED HEMOGLOBIN (HA1C) (test code = GLYHGB) 5.9 % HbA1 4. 8-6.0 N ESTIMATED AVERAGE GLUCOSE (test code = EAG) 123 MG/DL CBC W/O [id number] 08:10:00* Test Item Value Reference Range Interpretation [...] MPV) 9.5 fL 6.7-11.0 N CBC W/O [id number] 08:09:00* Test Item Value Reference Range Interpretation [...] MPV) fL 6.7-11.0 - CT ABD PELVIS [id number] 18:28:00 [facility] 1960 Age[facility]S: 58 / M [address] [facility]: [id number] Loc: [place] [address] Phys: EstelabeckJeremy king Ana [employer] Acct: [id number] Dis Date: Status: ADM IN PHONE #: [phone] Exam Date: 01/13/2019 171 FAX #: [phone] Reason: TESTICLE PAIN-POSS HERNIA EXAMS: CPT CODE: [id number] CT ABD PELVIS W/CONT [id number] HISTORY: Testicular pain and possible hernia. COMPARISON: [...] (CONTINUED) Name: LAVONNE CONTRERAS [facility] : 1960 Age/S: 58 / M [address] Unit #: [id number] Loc: [place] [address] Phys: Grant Vanegas [employer] Acct: [id number] Dis Date: Status: ADM IN PHONE #: [phone] Exam Date: 01/13/2019 1719 FAX #: Reason: TESTICLE PAIN-POSS HERNIA EXAMS: CPT CODE: [id number] CT ABD PELVIS W /CONT 91666 <Continued> stable going back to examination of [...] CT CTDI: DLP: Trnscb Date/Time: 01/13/2019 (182) t.SDR.TH4 Orig Print D/T: S: 01/13/2019 (183) PAGE 2 Signed Report LACTIC [id number] 17:40:00* Test Item Value Reference Range Interpretation Comments LACTIC ACID (test code = LACT) 1.1 mmol/L 0.4-1.9 N - US SCROTUM AND [id number] 16:24:00 Name: LAVONNE CONTRERAS [facility] : 1960 Age/S: 58 / M [address] Unit #: [id number] Loc: [place] [address] Phys: Jeremy Vanegas [employer] Acct: [id number] Dis Date: Status: REG ER PHONE #: [phone] Exam Date: 01/13/20191545 FAX #: [phone] Reason: TESTICLE PAIN EXAMS: CPT CODE: [id number] US SCROTUM AND CNTS 80994 REASON FOR EXAM: PELVIC PAIN EXAM ORDER [...] 1 Signed Report (CONTINUED) Name: LAVONNE CONTRERAS [facility] : 1960 Age/S: 58 / M [address] [facility] Unit #: [id number] Loc: [place] [address] Phys: Jreemy Vanegas [employer] Acct: [id number] Dis Date: Status: REG ER PHONE #: [phone] Exam Date: 01/13/20191545 FAX #: [phone] Reason: TESTICLE PAIN EXAMS: CPT CODE: [id number] US SCROTUM AND CNTS 17413 <Continued> IMPRESSION: Findings of left scrotal wall abscess and left sided epididymitis. The left testicle is sonographically unremarkable. Penile implant. at 1624 Reported and signed by: Joe Vu MD CC: Jeremy Vanegas NP Technologist: Romy Chowdary RT(S), [facility] Trnscb Date/Time: 01/13/2019 (2942) t.ALTAFR.RR31 Orig Print D/T: S: 01/13/2019 (1295) Probe: PAGE 2 Signed Report - DUP AB/PEL/SC [id number] 16:24:00 Name: LAVONNE CONTRERAS [facility] : 1960 Age/S: 58 / M [address] [facility] Unit #: [id number] [place]: [place] [address] Phys: Jeremy Vanegas NP Acct: [id number] Dis Date: Status: REG ER PHONE #: [phone] Exam Date: 01/13/2019 1546 FAX #: [phone] Reason: PELVIC PAIN EXAMS: CPT CODE: [id number] DUP AB/PEL/SC COMP 26170 REASON FOR EXAM: PELVIC PAIN EXAM ORDER [...] 1 Signed Report (CONTINUED) Name: LAVONNE CONTRERAS [facility] : 1960 Age/S: 58 / M [address] Unit #: [id number] Loc: [place] [address] Phys: Jeremy Vanegas [employer] Acct: [id number] Dis Date: Status: REG ER PHONE #: [phone] Exam Date: 01/13/2019 1546 FAX #: [phone] Reason: PELVIC PAIN EXAMS: CPT CODE: [id number] DUP AB/PEL/SC COMP 50158 <Continued> IMPRESSION: Findings of left scrotal wall abscess and left sided epididymitis. The left testicle is sonographically unremarkable. Penile implant. at 1624 Reported and signed by: Joe Vu MD CC: Jeremy Vanegas [employer] Technologist: Romy Chowdary RT(S), [facility] Trnscb Date/Time: 01/13/2019 (162) t.ALTAFR.RR31 Orig Print D/T: S: 01/13/2019 (7338) Probe: PAGE 2 Signed Report BASIC METABOLIC [id number] 16:09:00* Test Item Value Reference Range Interpretation [...] CA) 8.8 mg/dL 8.5-10.1 N HEPATIC FUNCTION [id number] 16:09:00* Test Item Value Reference Range Interpretation [...] reference range due to change in reagent. [id number] 16:09:00* Test Item Value Reference Range Interpretation Comments LIPASE (test code = LIP) 99 U/L 73.0-393.0 N CBC W/O [id number] 16:05:00* Test Item Value Reference Range Interpretation [...] MPV) 9.2 fL 6.7-11.0 N CBC W/O [id number] 16:04:00* Test Item Value Reference Range Interpretation [...] code = MPV) fL 6.7-11.0 BASIC METABOLIC [id number] 15:58:00* Test Item Value Reference Range Interpretation [...] code = CA) mg/dL 8.5-10.1 HEPATIC FUNCTION [id number] 15:58:00* Test Item Value Reference Range Interpretation [...] TOTAL (test code = ALKP) IUnit/L 45-117 [id number] 15:58:00* Test Item Value Reference Range Interpretation Comments LIPASE (test code = LIP) U/L 73.0-393.0 URINALYSIS [id number] 15:57:00* Test Item Value Reference Range Interpretation [...] FEW #/LPF Urine Source? Clean CatchCOMPREHENSIVE METABOLIC [id number] 08:01:00* Test Item Value Reference Range Interpretation [...] code = ALKP) 174 U/L 38-126 H [id number] 08:01:00* Test Item Value Reference Range Interpretation Comments MAGNESIUM (test code = MAG) 2.2 mg/dL 1.6-2.3 N COMPREHENSIVE METABOLIC [id number] 07:49:00* Test Item Value Reference Range Interpretation [...] code = ALKP) 174 U/L 38-126 H [id number] 07:49:00* Test Item Value Reference Range Interpretation Comments MAGNESIUM (test code = MAG) mg/dL 1.6-2.3 CBC W/AUTO [id number] 07:34:00* Test Item Value Reference Range Interpretation [...] 0.05 x10 3/uL 0.0-0.1 N BASIC METABOLIC [id number] 02:48:00* Test Item Value Reference Range Interpretation [...] 8.4-10.2 N UA RFLX MICR CULT IF [id number] 02:42:00* Test Item Value Reference Range Interpretation [...] 0.04 x10 3/uL 0.0-0.1 N LACTIC ACID [id number] 02:30:00* Test Item Value Reference Range Interpretation Comments LACTIC ACID POC (test code = LACTP) 0.95 mmol/L 0.7-2.0 N - CT ABD PELVIS W/O [id number] 22:43:00 Name: LAVONNE CONTRERAS [facility] : 1960 Age/S: 57 / M [address] Unit #: [id number] Loc: [place] [address] Phys: Jayna Brand MD Acct: [id number] Dis Date: Status: [facility] ER PHONE #: [phone] Exam Date: 10/06/2018 2130 FAX #: [phone] Reason: HEMATURIA EXAMS: CPT CODE: [id number] CT ABD PELVIS W/O CONT 34211 REASON FOR EXAM: HEMATURIA EXAM ORDER DATE: [...] 1 Signed Report (CONTINUED) Name: LAVONNE CONTRERAS [facility] : 1960 Age/S: 57 / M [address] Unit #: [id number] Loc: [place] [address] Phys: Jayna Brand MD Acct: [id number] Dis Date: tus: [facility] ER PHONE #: [phone] Exam Date : 10/06/2018 2130 FAX #: [phone] Reason: HEMATURI A EXAMS: CPT CODE: [id number] CT ABD PELVIS W/O CONT 80043 <Continued> Peritoneum and retroperitoneum: No free fluid [...] MAY RT(R),RDMS,CT CTDI: DLP: Trnscb Date/Time: 10/06/2018 (962) t.SDR.RR31 Orig Print D/T: S: 10/06/2018 (2478) PAGE 2 Signed Report - CT ABD PELVIS W/O CONT 2018-10-06 22:43:00 Name: LAVONNE CONTRERAS [facility] : 1960 Age/S: 57 / M [address] Unit #: [id number] [place]: [place] [address] Phys: Jayna Brand MD Acct: [id number] Dis Date: Status: REG ER PHONE #: [phone] Exam Date: 10/06/20182129 FAX #: [phone] Reason: HEMATURIA EXAMS: CPT CODE: [id number] CT ABD PELVIS W/O CONT 05731 REASON FOR EXAM: HEMATURIA EXAM ORDER DATE: [...] 1 Signed Report (CONTINUED) Name: LAVONNE CONTRERAS [facility] : 1960 Age/S: 57 / M [address] Unit #: [id number] Loc: [place] [address] Phys: Jayna Brand MD Acct: [id number] Dis Date: Status: REG ER PHONE #: [phone] Exam Date: 10/06/20182129 FAX #: [phone] Reason: HEMATURIA EXAMS: CPT CODE: [id number] CT ABD PELVIS W/O CONT 61103 <Continued> Peritoneum and retroperitoneum: No free fluid [...] MAY RT(R),RDMS,CT CTDI: DLP: Trnscb Date/Time: 10/06/2018 (2533) TannaRR31 Orig Print D/T: S: 10/06/2018 (8827) PAGE 2 Signed Report COMPREHENSIVE METABOLIC [id number] 20:48:00 * Test Item Value Reference Range [...] = ALKP) 272 U/L 38-126 H PROTHROMBIN [id number] 20:47:00* Test Item Value Reference Range Interpretation [...] (2.5-3.5) IS PATIENT ON ANTICOAGULANTS? NTHROMBOPLASTIN TIME [id number] 20:47:00* Test Item Value Reference Range Interpretation Comments THROMBOPLASTIN TIME PARTIAL (test code = PTT) 23.7 seconds 25.5-34. 3 L Therapeutic Range for patients on Heparin Therapy is 2 to2.5 times their baseline PTT level. IS PATIENT ON ANTICOAGULANTS? NCBC W/AUTO [id number] 20:29:00* Test Item Value Reference Range Interpretation [...] REQUIRED (test code = MDIFF) NO URINALYSIS [id number] 20:28:00* Test Item Value Reference Range Interpretation [...] LPF NONE-FEW A Urine Source? Clean CatchURINALYSIS [id number] 20:18:00* Test Item Value Reference Range Interpretation [...] HPF NONE Urine Source? Clean CatchBASIC METABOLIC [id number] 05:31:00* Test Item Value Reference Range Interpretation [...] stoppedComments to Phleb: IF not already drawn eidfzYEQIJOIOMVF6561-28-43 05:31:00* Test Item Value Reference Range Interpretation Comments PHOSPHOROUS (test code = PHOS) 4.4 mg/dL 2.5-4.5 N Spec Comments: Order to be discontinued when PN is stoppedComments to Phleb: IF not already drawn icdaaXVSSEUTUI6907-76-13 05:31:00* Test Item Value Reference Range Interpretation Comments MAGNESIUM (test code = MAG) 2.1 mg/dL 1.6-2.3 N Spec Comments: Order to be discontinued when PN is stoppedComments to Phleb: IF not already drawn todayBASIC METABOLIC [id number] 05:17:00* Test Item Value Reference Range Interpretation [...] stoppedComments to Phleb: IF not already drawn yyepjSMOOHPYTLIK5689-36-30 05:17:00* Test Item Value Reference Range Interpretation Comments PHOSPHOROUS (test code = PHOS) mg/dL 2.5-4.5 Spec Comments: Order to be discontinued when PN is stoppedComments to Phleb: IF not already drawn vwohsVTXXOBJBO4852-47-65 05:17:00* Test Item Value Reference Range Interpretation Comments MAGNESIUM (test code = MAG) mg/dL 1.6-2.3 Spec Comments: Order to be discontinued when PN is stoppedComments to Phleb: IF not already drawn todayCBC W/AUTO [id number] 04:59:00* Test Item Value Reference Range Interpretation [...] Phleb: IF not already drawn todayBASI METABOLIC [id number] 07:24:00* Test Item Value Reference Range Interpretation [...] to be discontinue d when PN is ecdwaejDLSJZVPKRNZ9622-89-29 07:24:00* Test Item Value Reference Range Interpretation Comments PHOSPHOROUS (test code = PHOS) 4.7 mg/dL 2.5-4.5 H Spec Comments: Order to be discontinued when PN is stoppedComments to Phleb: IF not already drawn todaySpec Comments: weeklyComments to Phleb: to be discontinue d when PN is ujqkvbuBFPYNUDSZPYHH2050-16-43 07:24:00* Test Item Value Reference Range Interpretation Comments TRIGLYCERIDES (test code = TRIG) 186 mg/dL TRIGLYCERIDES REFERENCE RANGE:Normal: <150 mg/dLBorderline High: 150-199 mg/dLHigh: 200-499 mg/dLVery High: >=500 mg/dL Spec Comments: Order to be discontinued when PN is stoppedComments to Phleb: IF not already drawn todaySpec Comments: weeklyComments to Phleb: to be discontinue d when PN is knpvqbeFEOAUTUBH8339-88-53 07:24:00* Test Item Value Reference Range Interpretation Comments MAGNESIUM (test code = MAG) 2.0 mg/dL 1.6-2.3 N Spec Comments: Order to be discontinued when PN is stoppedComments to Phleb: IF not already drawn todaySpec Comments: weeklyComments to Phleb: to be discontinue d when PN is urvmxpiEZZDASETNJ2699-52-96 07:24:00* Test Item Value Reference Range Interpretation Comments PREALBUMIN (test code = PREALB) 21.17 mg/dL 17.6-36.0 N Spec Comments: Order to be discontinued when PN is stoppedComments to Phleb: IF not already drawn todaySpec Comments: weeklyComments to Phleb: to be discontinue d when PN is stoppedBASIC METABOLIC [id number] 07:14:00* Test Item Value Reference Range Interpretation [...] to be discontinue d when PN is fvddstsJCAOBTFKBYT3592-14-61 07:14:00* Test Item Value Reference Range Interpretation Comments PHOSPHOROUS (test code = PHOS) 4.7 mg/dL 2.5-4.5 H Spec Comments: Order to be discontinued when PN is stoppedComments to Phleb: IF not already drawn todaySpec Comments: weeklyComments to Phleb: to be discontinue d when PN is qppuctqHEFLENIRBXSBP4560-65-75 07:14:00* Test Item Value Reference Range Interpretation Comments TRIGLYCERIDES (test code = TRIG) 186 mg/dL TRIGLYCERIDES REFERENCE RANGE:Normal: <150 mg/dLBorderline High: 150-199 mg/dLHigh: 200-499 mg/dLVery High: >=500 mg/dL Spec Comments: Order to be discontinued when PN is stoppedComments to Phleb: IF not already drawn todaySpec Comments: weeklyComments to Phleb: to be discontinue d when PN is ooawolqJSWXXJPTS0804-17-48 07:14:00* Test Item Value Reference Range Interpretation Comments MAGNESIUM (test code = MAG) 2.0 mg/dL 1.6-2.3 N Spec Comments: Order to be discontinued when PN is stoppedComments to Phleb: IF not already drawn todaySpec Comments: weeklyComments to Phleb: to be discontinue d when PN is gmucbzvAOURITOLYA2243-47-93 07:14:00* Test Item Value Reference Range Interpretation Comments PREALBUMIN (test code = PREALB) mg/dL 17.6-36.0 Spec Comments: Order to be discontinued when PN is stoppedComments to Phleb: IF not already drawn todaySpec Comments: weeklyComments to Phleb: to be discontinue d when PN is stoppedBASIC METABOLIC [id number] 07:09:00* Test Item Value Reference Range Interpretation [...] to be discontinue d when PN is moazcfgXROFYEENGKG2533-51-29 07:09:00* Test Item Value Reference Range Interpretation Comments PHOSPHOROUS (test code = PHOS) mg/dL 2.5-4.5 Spec Comments: Order to be discontinued when PN is stoppedComments to Phleb: IF not already drawn todaySpec Comments: weeklyComments to Phleb: to be discontinue d when PN is mukwdkiROLKBHLRCSZZH2452-10-14 07:09:00* Test Item Value Reference Range Interpretation Comments TRIGLYCERIDES (test code = TRIG) mg/dL Spec Comments: Order to be discontinued when PN is stoppedComments to Phleb: IF not already drawn todaySpec Comments: weeklyComments to Phleb: to be discontinue d when PN is rbdyzmzIPQPTGJLS1409-59-93 07:09:00* Test Item Value Reference Range Interpretation Comments MAGNESIUM (test code = MAG) mg/dL 1.6-2.3 Spec Comments: Order to be discontinued when PN is stoppedComments to Phleb: IF not already drawn todaySpec Comments: weeklyComments to Phleb: to be discontinue d when PN is yyudmbaJMPTKOHHWO8578-13-23 07:09:00* Test Item Value Reference Range Interpretation Comments PREALBUMIN (test code = PREALB) mg/dL 17.6-36.0 Spec Comments: Order to be discontinued when PN is stoppedComments to Phleb: IF not already drawn todaySpec Comments: weeklyComments to Phleb: to be discontinue d when PN is stoppedPROTHROMBIN SYDS8548-94-50 07:01:00* Test Item Value Reference Range Interpretation [...] be discontinued when PN is stoppedCBC W/AUTO [id number] 06:55:00* Test Item Value Reference Range Interpretation [...] stoppedComments to Phleb: IF not already drawn todayCONNE[facility]IC[facility] METABOLIC SWPZG5115-06-96 06:33:00* Test Item Value Reference Range Interpretation [...] stoppedComments to Phleb: IF not already drawn qutfrKNYTQYJYTEP6437-57-66 06:33:00* Test Item Value Reference Range Interpretation Comments PHOSPHOROUS (test code = PHOS) 3.9 mg/dL 2.5-4.5 N Spec Comments: Order to be discontinued when PN is stoppedComments to Phleb: IF not already drawn vrwmtRPLWHKGKY6543-42-62 06:33:00* Test Item Value Reference Range Interpretation Comments MAGNESIUM (test code = MAG) 1.9 mg/dL 1.6-2.3 N Spec Comments: Order to be discontinued when PN is stoppedComments to Phleb: IF not already drawn todayCBC W/AUTO VSOS6656-17-26 06:13:00* Test Item Value Reference Range Interpretation [...] Phleb: IF not already drawn todayBASI METABOLIC MLASQ8800-69-18 06:09:00* Test Item Value Reference Range Interpretation [...] stoppedComments to Phleb: IF not already drawn mnvnlHVTGJZNHYOA4115-29-52 06:09:00* Test Item Value Reference Range Interpretation Comments PHOSPHOROUS (test code = PHOS) 3.6 mg/dL 2.5-4.5 N Spec Comments: Order to be discontinued when PN is stoppedComments to Phleb: IF not already drawn lwqqcBZRWVXPSB5900-29-03 06:09:00* Test Item Value Reference Range Interpretation Comments MAGNESIUM (test code = MAG) 2.0 mg/dL 1.6-2.3 N Spec Comments: Order to be discontinued when PN is stoppedComments to Phleb: IF not already drawn todayBASIC METABOLIC [id number] 06:08:00* Test Item Value Reference Range Interpretation [...] stoppedComments to Phleb: IF not already drawn dwmnzUCDWFCLHJGF4688-50-17 06:08:00* Test Item Value Reference Range Interpretation Comments PHOSPHOROUS (test code = PHOS) mg/dL 2.5-4.5 Spec Comments: Order to be discontinued when PN is stoppedComments to Phleb: IF not already drawn trnkaUAUDWNNBE2746-89-85 06:08:00* Test Item Value Reference Range Interpretation Comments MAGNESIUM (test code = MAG) mg/dL 1.6-2.3 Spec Comments: Order to be discontinued when PN is stoppedComments to Phleb: IF not already drawn todayCBC W/AUTO CVZA8036-92-30 05:48:00* Test Item Value Reference Range Interpretation [...] Phleb: IF not already drawn todayBASIC METABOLIC [id number] 04:45:00* Test Item Value Reference Range Interpretation [...] stoppedComments to Phleb: IF not already drawn ltiamSJRJCCWFJPY5069-52-81 04:45:00* Test Item Value Reference Range Interpretation Comments PHOSPHOROUS (test code = PHOS) 3.8 mg/dL 2.5-4.5 N Spec Comments: Order to be discontinued when PN is stoppedComments to Phleb: IF not already drawn zggeqEVMDMDRGT6394-34-08 04:45:00* Test Item Value Reference Range Interpretation Comments MAGNESIUM (test code = MAG) 1.8 mg/dL 1.6-2.3 N Spec Comments: Order to be discontinued when PN is stoppedComments to Phleb: IF not already drawn todayCBC W/AUTO YAVY5106-16-00 04:32:00* Test Item Value Reference Range Interpretation [...] Phleb: IF not already drawn todayBASI METABOLIC [id number] 05:55:00* Test Item Value Reference Range Interpretation [...] stoppedComments to Phleb: IF not already drawn zwdeyWSXVEOERYEH4857-30-35 05:55:00* Test Item Value Reference Range Interpretation Comments PHOSPHOROUS (test code = PHOS) 3.7 mg/dL 2.5-4.5 N Spec Comments: Order to be discontinued when PN is stoppedComments to Phleb: IF not already drawn qbjlfZADFXWNMO9393-95-64 05:55:00* Test Item Value Reference Range Interpretation Comments MAGNESIUM (test code = MAG) 1.9 mg/dL 1.6-2.3 N Spec Comments: Order to be discontinued when PN is stoppedComments to Phleb: IF not already drawn todayCBC W/AUTO NYWT0555-22-05 05:32:00* Test Item Value Reference Range Interpretation [...] Phleb: IF not already drawn todayBASI METABOLIC WYWJT0308-48-01 04:16:00* Test Item Value Reference Range Interpretation [...] stoppedComments to Phleb: IF not already drawn gyphuVFMTQHRAYGZ3721-72-62 04:16:00* Test Item Value Reference Range Interpretation Comments PHOSPHOROUS (test code = PHOS) 3.8 mg/dL 2.5-4.5 N Spec Comments: Order to be discontinued when PN is stoppedComments to Phleb: IF not already drawn ibfngNQEJJJRDK8255-22-38 04:16:00* Test Item Value Reference Range Interpretation Comments MAGNESIUM (test code = MAG) 2.0 mg/dL 1.6-2.3 N Spec Comments: Order to be discontinued when PN is stoppedComments to Phleb: IF not already drawn todayCBC W/AUTO OQLK4533-29-17 03:53:00* Test Item Value Reference Range Interpretation [...] IF not already drawn today- SP FELIX CII7081-78-77 10:59:00 [place]: St: ADM Name: LAVONNE BAEZA [facility] : 10/20/[birth year] Age/S: 57/M [address] Unit #: [id number] Loc: [address] [place] [address] Phys: Jayde Lee Acct: [id number] Dis Date: Status: ADM IN PHONE #: [phone] Exam Date: 09/25/2018 1033 FAX #: [phone] Reason: EXAMS: CPT CODE: [id number] SP [place] NDL 97484 Exam: 1. Percutaneo us ultrasound/fluoroscopic guided gastrostomy [...] Gy PAGE 1 Signed Report (C ONTINUED) [place]: St: ADM Name: LAVONNE CONTRERAS [facility] : 1960 Age/S: 57/M [address] Unit #: [id number] Loc: [address] [place] [address] Phys: JesusLiana DO Acct: [id number] Dis Date: Status: ADM IN PHONE #: Exam Date: 09/25/2018 1033 FAX #: [phone] Reason: EXAMS: CPT CODE: [id number] [place] [address] <Continued> Discussion: Initial preliminary images demonstrate multiple distended loop of small bowel. The gastric is decompressed. NG tube is in position. Upon completion of the ng tube placement injection of contrast demonstrate extension of contrast into the decompressed gastric pouch. No contrast extravasation seen. Impression: 1. Status post placement of percutaneous gastrostomy tube placeme nt. a t 4171 Reported and signed by: Juan Ramon Rodríguez M.D. CC: Techn ologist: Tatyana Talavera Trnscrd Date/Madhu e/By: 09/25/2018 (5872) : By: Gurwinder PAGE 2 Signed Report [place]: St: ADM Name: LAVONNE CONTRERAS [facility] : 1960 Age/S: 57/M [address] Unit #: [id number] Loc: [address] [place], [place] [address] Phys: JesusJayde DO Acct: [id number] Dis Date: Status: ADM IN PHONE #: [phone] Exam Date: 09/25/2018 1033 FAX #: [phone] Reason: EXAMS: C PT CODE: [id number] SP [place] NDL 60317 <Continued> Orig Print D/T: S: 09/25/2018 (1049) PAGE 3 Signed Report BASIC METABOLIC [id number] 04:54:00* Test Item Value Reference Range Interpretation [...] stoppedComments to Phleb: IF not already drawn qohutHMZBHWGQHDY9438-14-09 04:54:00* Test Item Value Reference Range Interpretation Comments PHOSPHOROUS (test code = PHOS) 4.9 mg/dL 2.5-4.5 H Spec Comments: Order to be discontinued when PN is stoppedComments to Phleb: IF not already drawn npvjkBLEGPJLRD8586-28-76 04:54:00* Test Item Value Reference Range Interpretation Comments MAGNESIUM (test code = MAG) 2.2 mg/dL 1.6-2.3 N Spec Comments: Order to be discontinued when PN is stoppedComments to Phleb: IF not already drawn todayCBC W/AUTO HAYS3451-70-35 04:11:00* Test Item Value Reference Range Interpretation [...] stoppedComments to Phleb: IF not already drawn todaySI METABOLIC OTFXA9750-89-30 06:53:00* Test Item Value Reference Range Interpretation [...] Phleb: IF not already drawn todaySpec Comments: ndb9Nktl Comments: DAY 3PHOSPHOROUS 2018-09-24 06:53:00* Test Item Value Reference Range Interpretation Comments PHOSPHOROUS (test code = PHOS) 4.7 mg/dL 2.5-4.5 H Spec Comments: Order to be discontinued when PN is stoppedComments to Phleb: IF not already drawn todaySpec Comments: eby7Lpdt Comments: DAY 3TRIGLYCERIDES 2018-09-24 06:53:00* Test Item Value Reference Range Interpretation Comments TRIGLYCERIDES (test code = TRIG) 281 mg/dL TRIGLYCERIDES REFERENCE RANGE:Normal: <150 mg/dLBorderline High: 150-199 mg/dLHigh: 200-499 mg/dLVery High: >=500 mg/dL Spec Comments: Order to be discontinued when PN is stoppedComments to Phleb: IF not already drawn todaySpec Comments: xus8Svoq Comments: DAY 3MAGNESIUM 2018-09-24 06:53:00* Test Item Value Reference Range Interpretation Comments MAGNESIUM (test code = MAG) 2.1 mg/dL 1.6-2.3 N Spec Comments: Order to be discontinued when PN is stoppedComments to Phleb: IF not already drawn todaySpec Comments: ypx5Rcua Comments: DAY 3PREALBUMIN 2018-09-24 06:53:00* Test Item Value Reference Range Interpretation Comments PREALBUMIN (test code = PREALB) 24.65 mg/dL 17.6-36.0 N Spec Comments: Order to be discontinued when PN is stoppedComments to Phleb: IF not already drawn todaySpec Comments: yet7Ubfj Comments: DAY 3BASIC METABOLIC [id number] 06:46:00* Test Item Value Reference Range Interpretation [...] Phleb: IF not already drawn todaySpec Comments: ssu7Cbom Comments: DAY 3PHOSPHOROUS 2018-09-24 06:46:00* Test Item Value Reference Range Interpretation Comments PHOSPHOROUS (test code = PHOS) mg/dL 2.5-4.5 Spec Comments: Order to be discontinued when PN is stoppedComments to Phleb: IF not already drawn todaySpec Comments: scb9Eazx Comments: DAY 3TRIGLYCERIDES 2018-09-24 06:46:00* Test Item Value Reference Range Interpretation Comments TRIGLYCERIDES (test code = TRIG) mg/dL Spec Comments: Order to be discontinued when PN is stoppedComments to Phleb: IF not already drawn todaySpec Comments: vrx5Khzd Comments: DAY 3MAGNESIUM 2018-09-24 06:46:00* Test Item Value Reference Range Interpretation Comments MAGNESIUM (test code = MAG) mg/dL 1.6-2.3 Spec Comments: Order to be discontinued when PN is stoppedComments to Phleb: IF not already drawn todaySpec Comments: tzy9Seuv Comments: DAY 3PREALBUMIN 2018-09-24 06:46:00* Test Item Value Reference Range Interpretation Comments PREALBUMIN (test code = PREALB) mg/dL 17.6-36.0 Spec Comments: Order to be discontinued when PN is stoppedComments to Phleb: IF not already drawn todaySpec Comments: [id number] Comments: DAY 3BASIC METABOLIC [id number] 06:46:00* Test Item Value Reference Range Interpretation [...] Phleb: IF not already drawn todaySpec Comments: jrw4Hosh Comments: DAY 3PHOSPHOROUS 2018-09-24 06:46:00* Test Item Value Reference Range Interpretation Comments PHOSPHOROUS (test code = PHOS) 4.7 mg/dL 2.5-4.5 H Spec Comments: Order to be discontinued when PN is stoppedComments to Phleb: IF not already drawn todaySpec Comments: Comments: DAY 3TRIGLYCERIDES 2018-09-24 06:46:00* Test Item Value Reference Range Interpretation Comments TRIGLYCERIDES (test code = TRIG) 281 mg/dL TRIGLYCERIDES REFERENCE RANGE:Normal: <150 mg/dLBorderline High: 150-199 mg/dLHigh: 200-499 mg/dLVery High: >=500 mg/dL Spec Comments: Order to be discontinued when PN is stoppedComments to Phleb: IF not already drawn todaySpec Comments: jhi1Sdyw Comments: DAY 3MAGNESIUM 2018-09-24 06:46:00* Test Item Value Reference Range Interpretation Comments MAGNESIUM (test code = MAG) 2.1 mg/dL 1.6-2.3 N Spec Comments: Order to be discontinued when PN is stoppedComments to Phleb: IF not already drawn todaySpec Comments: [id number] Comments: DAY 3PREALBUMIN 2018-09-24 06:46:00* Test Item Value Reference Range Interpretation Comments PREALBUMIN (test code = PREALB) mg/dL 17.6-36.0 Spec Comments: Order to be discontinued when PN is stoppedComments to Phleb: IF not already drawn todaySpec Comments: ogm2Bpvz Comments: DAY 3PROTHROMBIN TIME 2018-09-24 06:27:00* Test [...] En oxaprin (Lovenox)Spec Comments: day 3CBC W/AUTO [id number] 06:26:00* Test Item Value Reference Range Interpretation [...] stoppedComments to Phleb: IF not already [facility] MET[facility]OLIC [id number] 05:29:00* Test Item Value Reference Range Interpretation [...] stoppedComments to Phleb: IF not already drawn [id number] 05:29:00* Test Item Value Reference Range Interpretation Comments PHOSPHOROUS (test code = PHOS) 3.8 mg/dL 2.5-4.5 N Spec Comments: Order to be discontinued when PN is stoppedComments to Phleb: IF not already drawn [id number] 05:29:00* Test Item Value Reference Range Interpretation Comments MAGNESIUM (test code = MAG) 1.7 mg/dL 1.6-2.3 N Spec Comments: Order to be discontinued when PN is stoppedComments to Phleb: IF not already drawn todayCBC W/AUTO [id number] 05:12:00* Test Item Value Reference Range Interpretation [...] not already drawn today- XR CHEST 1 [id number] 14:11:00 FAX: Luis Enrique Daniel MD [phone] [place]: St: [facility] FAX: Katy Pro MD [phone] Name: LAVONNE CONTRERAS [facility] : 1960 Age/S: 57/M [address] Unit #: [id number] Loc: C.350[address] [place] [address] Phys: Luis Enrique Orellana MD Acct: [id number] Dis Date: Status: ADM IN PHONE #: [phone] Exam Date: 09/22/2018 1230 FAX #: [phone] Reason: CHECK FOR PICC LINE P LACEMENT EXAMS: CPT CODE: [id number] XR CHEST 1 V 39630 Location: B2. CHEST, FRONTAL VIEW HISTORY: CHECK [...] Trnsc rd Date/Time/By: 09/22/2018 (1411) : By: [email or web address] PAGE 1 Signed Report FAX: Lisset Daniel MD [phone] [place]: St: [facility] FAX: Katy Pro MD [phone] Name: LAVONNE CONTRERAS [facility] : 1960 Age/S: 57/M [address] Unit #: [id number] Loc: C.[address] [place] [address] Phys: Luis Enrique Orellana MD Acct: [id number] Dis Date: Status: ADM IN PHONE #: [phone] Exam Date: 09/22/2018 1230 FAX #: [phone] Reason: CHECK FOR PICC LINE PLACEMENT EXAMS: CPT CODE: [id number] XR CHEST 1 V 95818 <Continued> Orig Print D/T: S: 09/22/2018 (0841) PAGE 2 Signed Report - XR ABDOMEN [id number] 14:08:00 FAX: Luis Enrique Daniel MD [phone] [place]: St: ADM FAX: Katy Pro MD [phone] Name: LAVONNE CONTRERAS [facility] : 1960 Age/S: 57/M [address] Unit #: [id number] Loc: C.[address] [place] [address] Phys: Luis Enrique Orellana MD Acct: [id number] Dis Date: Status: ADM IN PHONE #: [phone] Exam Date: 09/22/2018 1230 FAX #: [phone] Reason: f/u ileus EXAMS: CPT CODE: [id number] XR ABDOMEN 2V 71495 EXAM: Abdominal x-ray, 2 views Location: T [...] Trnscrd Date/Time/By: 09/22/2018 (140 8) : By: [email or web address] PAGE 1 Signed Report FAX: Luis Enrique Daniel MD [phone] [place]: St: ADM FAX: Katy Pro MD [phone] Name: RYAN LeeLAVONNE [facility] : 1960 A ge/S: 57/M [address] Unit #: [id number] Loc : C.[address] [place] [address] Phys: Luis Enrique Orellana MD Acct: [id number] Dis Date: Status: ADM IN PHONE #: [phone] E xam Date: 09/22/2018 1230 FAX #: [phone] Reas on: f/u ileus EXAMS: CPT CODE: [id number] XR ABDOMEN 2V 59452 <Continued> Orig Print D/T: S: 09/22/2018 (2594) PAGE 2 Signed Report BASIC METABOLIC [id number] 12:31:00* Test Item Value Reference Range Interpretation [...] Comments: IF not already drawn todaySpec Comments: [id number] 2018-09-22 12:31:00* Test Item Value Reference Range Interpretation Comments PHOSPHOROUS (test code = PHOS) mg/dL 2.5-4.5 Spec Comments: IF not already drawn todaySpec Comments: [id number] 2018-09-22 12:31:00* Test Item Value Reference Range Interpretation Comments TRIGLYCERIDES (test code = TRIG) mg/dL Spec Comments: IF not already drawn todaySpec Comments: [id number] 12:31:00* Test Item Value Reference Range Interpretation Comments MAGNESIUM (test code = MAG) mg/dL 1.6-2.3 Spec Comments: IF not already drawn todaySpec Comments: BCE2XIUQJ METABOLIC [id number] 12:31:00* Test Item Value Reference Range Interpretation [...] Comments: IF not already drawn todaySpec Comments: [id number] 2018-09-22 12:31:00* Test Item Value Reference Range Interpretation Comments PHOSPHOROUS (test code = PHOS) 3.1 mg/dL 2.5-4.5 N Spec Comments: IF not already drawn todaySpec Comments: [id number] 2018-09-22 12:31:00* Test Item Value Reference Range Interpretation Comments TRIGLYCERIDES (test code = TRIG) 287 mg/dL TRIGLYCERIDES REFERENCE RANGE:Normal: <150 mg/dLBorderline High: 150-199 mg/dLHigh: 200-499 mg/dLVery High: >=500 mg/dL Spec Comments: IF not already drawn todaySpec Comments: [id number] 12:31:00* Test Item Value Reference Range Interpretation Comments MAGNESIUM (test code = MAG) 1.7 mg/dL 1.6-2.3 N Spec Comments: IF not already drawn todaySpec Comments: [id number] TIME 2018-09-22 12:17:00* Test Item Value Reference [...] ON ANTICOAGULANTS ? YESLIST ANTICOAGULANT/ANTI PLT MEDICATION: He kasie (SQ)Spec Comments: OPR1DZV W/AUTO [id number] 12:11:00* Test Item Value Reference Range Interpretation [...] 0.08 x10 3/uL 0.0-0.1 N CBC W/MANUAL [id number] 03:32:00* Test Item Value Reference Range Interpretation [...] code = PLTMORPH) NORMAL NORMAL BASIC METABOLIC [id number] 03:09:00* Test Item Value Reference Range Interpretation [...] code = CA) 9.3 mg/dL 8.4-10.2 N [id number] 03:09:00* Test Item Value Reference Range Interpretation Comments PHOSPHOROUS (test code = PHOS) 3.1 mg/dL 2.5-4.5 N [id number] 03:09:00* Test Item Value Reference Range Interpretation Comments MAGNESIUM (test code = MAG) 2.1 mg/dL 1.6-2.3 N CBC W/MANUAL [id number] 03:01:00* Test Item Value Reference Range Interpretation [...] code = LYMPH) % 20.5-45.5 CBC W/MANUAL [id number] 03:01:00* Test Item Value Reference Range Interpretation [...] code = LYMPH) % 20.5-45.5 CBC W/MANUAL [id number] 07:34:00* Test Item Value Reference Range Interpretation [...] LARGE PLATELETS SEEN NOR MAL BASIC METABOLIC [id number] 07:03:00* Test Item Value Reference Range Interpretation [...] code = CA) 9.2 mg/dL 8.4-10.2 N [id number] 07:03:00* Test Item Value Reference Range Interpretation Comments PHOSPHOROUS (test code = PHOS) 3.1 mg/dL 2.5-4.5 N [id number] 07:03:00* Test Item Value Reference Range Interpretation Comments MAGNESIUM (test code = MAG) 2.2 mg/dL 1.6-2.3 N BASIC METABOLIC [id number] 06:52:00* Test Item Value Reference Range Interpretation [...] code = CA) 9.2 mg/dL 8.4-10.2 N [id number] 06:52:00* Test Item Value Reference Range Interpretation Comments PHOSPHOROUS (test code = PHOS) mg/dL 2.5-4.5 [id number] 06:52:00* Test Item Value Reference Range Interpretation Comments MAGNESIUM (test code = MAG) mg/dL 1.6-2.3 CBC W/MANUAL [id number] 06:33:00* Test Item Value Reference Range Interpretation [...] code = LYMPH) % 20.5-45.5 CBC W/MANUAL [id number] 06:33:00* Test Item Value Reference Range Interpretation [...] code = LYMPH) % 20.5-45.5 CBC W/MANUAL [id number] 07:52:00* Test Item Value Reference Range Interpretation [...] code = PLTMORPH) NORMAL NORMAL BASIC METABOLIC [id number] 07:43:00* Test Item Value Reference Range Interpretation [...] code = CA) 9.1 mg/dL 8.4-10.2 N [id number] 07:43:00* Test Item Value Reference Range Interpretation Comments PHOSPHOROUS (test code = PHOS) 4.0 mg/dL 2.5-4.5 N [id number] 07:43:00* Test Item Value Reference Range Interpretation Comments MAGNESIUM (test code = MAG) 2.4 mg/dL 1.6-2.3 H CBC W/MANUAL [id number] 07:20:00* Test Item Value Reference Range Interpretation [...] code = LYMPH) % 20.5-45.5 CBC W/MANUAL [id number] 07:20:00* Test Item Value Reference Range Interpretation [...] code = LYMPH) % 20.5-45.5 BASIC METABOLIC [id number] 08:05:00* Test Item Value Reference Range Interpretation [...] code = CA) 9.2 mg/dL 8.4-10.2 N [id number] 08:05:00* Test Item Value Reference Range Interpretation Comments PHOSPHOROUS (test code = PHOS) 4.6 mg/dL 2.5-4.5 H [id number] 08:05:00* Test Item Value Reference Range Interpretation Comments MAGNESIUM (test code = MAG) 2.5 mg/dL 1.6-2.3 H BASIC METABOLIC [id number] 08:04:00* Test Item Value Reference Range Interpretation [...] code = CA) 9.2 mg/dL 8.4-10.2 N [id number] 08:04:00* Test Item Value Reference Range Interpretation Comments PHOSPHOROUS (test code = PHOS) mg/dL 2.5-4.5 [id number] 08:04:00* Test Item Value Reference Range Interpretation Comments MAGNESIUM (test code = MAG) mg/dL 1.6-2.3 BASIC METABOLIC [id number] 07:27:00* Test Item Value Reference Range Interpretation Comments SODIUM (test code = NA) TEST NOT PERFORMED mmol/L 137-145 TEST NOT PERFORMED. POSSIBLE CONTAMINATION. SUGGESTSRECOLLECTION. INFORMED [id number] reported result: 129 mmol/LEdited by: NAYELI on 09/18/18:0726~~ Corrected Report ~~Reason (required): BASIC METABOLIC [id number] 07:12:00* Test Item Value Reference Range Interpretation [...] code = CA) 9.2 mg/dL 8.4-10.2 N [id number] 07:12:00* Test Item Value Reference Range Interpretation Comments PHOSPHOROUS (test code = PHOS) 9.2 mg/dL 2.5-4.5 H [id number] 07:12:00* Test Item Value Reference Range Interpretation Comments MAGNESIUM (test code = MAG) 2.9 mg/dL 1.6-2.3 H CBC W/MANUAL [id number] 07:00:00* Test Item Value Reference Range Interpretation [...] code = PLTMORPH) NORMAL NORMAL CBC W/MANUAL [id number] 06:25:00* Test Item Value Reference Range Interpretation [...] code = LYMPH) % 20.5-45.5 CBC W/MANUAL [id number] 06:25:00* Test Item Value Reference Range Interpretation [...] = LYMPH) % 20.5-45.5 - XR SMALL [id number] 06:04:00 FAX: Luis Enrique Daniel MD [phone] [place]: St: ADM FAX: Katy Pro MD [phone] Name: LAVONNE CONTRERAS [facility] : 1960 Age/S: 57/M [address] Unit #: [id number] Loc: C.[address] [place] [address] Phys: Luis Enrique Orellana MD Acct: [id number] Dis Date: Status: ADM IN PHONE #: [phone] Exam Date: 09/17/20182011 FAX #: [phone] Reason: SBO EXAMS: CPT CODE: [id number] XR SMALL BOWEL 21892 HISTORY: Male, 57 years of age with SBO EXAM: S mall bowel series. COMPARISON: Correlation made with CT abdomen an d pelvis with IV contrast performed 08/13/2018; small bowel series performe d 08/14/2018 TECHNIQUE: The patient was given Gastrografin through the enteric tube and sequential images were obtained of the abdomen over t esperanza. The study was carried out to 8 hours. FINDINGS: Licensed Mental Health Counselor f ilm shows enteric tube projects over [...] Haines MD Technologist: MARY GUEVARA; Dru Montejo scrd Date/Time/By: 09/18/2018 (0604) : By: TannaCLW PAGE 1 Signed Report FAX: Maddy Daniel MD [phone] [place]: St: ADM FAX: Katy Pro MD [phone] Name: DIANE,LAVONNE [facility] : 1960 Age/S: 57/M [address] Unit #: [id number] Loc: C.33[address] [place] [address] Phys: Luis Enrique Orellana MD Acc t: [id number] Dis Date: Status: ADM IN PHONE #: [phone] Exam Date: 09/17/20182011 FAX #: [phone] Reason: SBO EXAMS: CPT CODE: [id number] XR SMALL BOWEL 11534 <Continued > Orig Print D/T: S: 09/18/2018 (0607) PAGE 2 Signed Report CBC W/MANUAL [id number] 08:27:00* Test Item Value Reference Range Interpretation [...] PLATELET CLUMPS SEEN NOR MAL BASIC METABOLIC [id number] 07:36:00* Test Item Value Reference Range Interpretation [...] code = CA) 9.2 mg/dL 8.4-10.2 N [id number] 07:36:00* Test Item Value Reference Range Interpretation Comments PHOSPHOROUS (test code = PHOS) 3.8 mg/dL 2.5-4.5 N [id number] 07:36:00* Test Item Value Reference Range Interpretation Comments MAGNESIUM (test code = MAG) 2.3 mg/dL 1.6-2.3 N BASIC METABOLIC [id number] 07:35:00* Test Item Value Reference Range Interpretation [...] code = CA) 9.2 mg/dL 8.4-10.2 N [id number] 07:35:00* Test Item Value Reference Range Interpretation Comments PHOSPHOROUS (test code = PHOS) mg/dL 2.5-4.5 [id number] 07:35:00* Test Item Value Reference Range Interpretation Comments MAGNESIUM (test code = MAG) mg/dL 1.6-2.3 CBC W/MANUAL [id number] 07:21:00* Test Item Value Reference Range Interpretation [...] code = LYMPH) % 20.5-45.5 CBC W/MANUAL [id number] 07:21:00* Test Item Value Reference Range Interpretation [...] LYMPH) % 20.5-45.5 - XR CHEST 1 [id number] 23:16:00 FAX: Luis Enrique Daniel MD [phone] [place]: St: [facility] FAX: Katy Pro MD [phone] Name: LAVONNE CONTRERAS : 1960 Age/S: 57/M [address] Unit #: [id number] Loc: C.[address] [place] [address] Phys: Luis Enrique Orellana MD Acct: [id number] Dis Date: Status: ADM IN PHONE #: [phone] Exam Date: 09/16/2018 2300 FAX #: [phone] Reason: NG TUBE PLACEMENT EXAMS: CPT CODE: [id number] XR CHEST 1 V 16131 EXAM: Portable chest one view. Location code:J9 [...] No active disease in the chest. at 0693 Reported and signed by: Cory Barrios MD CC: Lisset Orellana MD; Katy Haines MD Technologist: YANA ARMENDARIZ ON RT (R) Trnscrd Date/Time/By: 09/16/2018 (7220) : By: [email or web address] PAGE 1 Signed Report FAX: Luis Enrique Daniel MD [phone] [place] : St: [facility] FAX: Katy Pro MD [phone] Name: LAVONNE CONTRERAS [facility] : 1960 Age /S: 57/M [address] Unit #: [id number] Loc: C.[address] [place] [address] Phys: Luis Enrique Orellana MD Acct: [id number] Dis Date: Status: ADM IN PHONE #: [phone] Exalphonse m Date: 09/16/2018 2300 FAX #: [phone] Reason : NG TUBE PLACEMENT EXAMS: CPT CODE: [id number] XR CHEST 1 V 37237 <Continued> Orig Print D/T: S: 09/16/2018 (9567) PAGE 2 Signed Report BASIC METABOLIC [id number] 06:06:00* Test Item Value Reference Range Interpretation [...] code = CA) 8.8 mg/dL 8.4-10.2 N [id number] 06:06:00* Test Item Value Reference Range Interpretation Comments PHOSPHOROUS (test code = PHOS) 3.3 mg/dL 2.5-4.5 N [id number] 06:06:00* Test Item Value Reference Range Interpretation Comments MAGNESIUM (test code = MAG) 2.3 mg/dL 1.6-2.3 N PROTHROMBIN [id number] 05:58:00* Test Item Value Reference Range Interpretation [...] ANTICOAGULANTS ? YESLIST ANTICOAGULANT/ANTI PLT MEDICATION: Lo venoxTHROMBOPLASTIN TIME [id number] 05:58:00* Test Item Value Reference Range Interpretation Comments THROMBOPLASTIN TIME PARTIAL (test code = PTT) 23.6 SECONDS 23.4-37. 0 N Therapeutic Range for Heparin EFFECTIVE 11/12/12 Heparin IU/mL aPTT Seconds0.3 64.30.7 88.8 IS PATIENT ON ANTICOAGULANTS ? YESLIST ANTICOAGULANT/ANTI PLT MEDICATION: Lo venoxCBC W/AUTO [id number] 05:49:00* Test Item Value Reference Range Interpretation [...] 3/uL 0.0-0.1 N - XR CHEST 1 [id number] 17:08:00 FAX: Luis Enrique Daniel MD [phone] [place]: St: ADM FAX: Katy Pro MD [phone] Name: DIANELAVONNE [facility] : 1960 Age/S: 57/M [address] Unit #: [id number] Loc: C.[address] [place] [address] Phys: Luis Enrique Orellana MD Acct: [id number] Dis Date: Status: ADM IN PHONE #: [phone] Exam Date: 09/15/2018 1704 FAX #: [phone] Reason: PICC LINE PALCEMENT EXAMS: CPT CODE: [id number] XR CHEST 1 V 90177 REASON FOR EXAM: PICC line placement. COMPARISON: [...] Orellana MD; Katy Haines MD Technologist: TRA ROBERTSON Date/Time/By: 09/16/19 19 (8081) : By: [facility] PAGE 1 Signed Report FAX: Luis Enrique Daniel MD [phone] [place]: St: [facility] FAX: Katy Pro MD [phone] -------- Name: LAVONNE CONTRERAS [facility] : 1960 Age/S: 57/M [address] Unit #: [id number] Loc: C.[address] [place] [address] Phys: Luis Enrique Orellana MD Acct: [id number] Dis Date: Status: ADM IN PHONE #: Exam Date: 09/15/2018 1704 FAX #: [phone] Reason: PICC LINE PALCEMENT EXAMS: CPT CODE: [id number] XR CHEST 1 V 01564 <Continued> Orig Print D/T: S: 09/15/2018 (4053) PAGE 2 Signed Report - XR ABDOMEN 1 [id number] 13:49:00 FAX: Katy Pro MD [phone] [place]: St: ADM Name: LAVONNE BAEZA [facility] : [birth year] Age/S: 57/M [address] Unit #: [id number] Loc: C.[address] [place] [address] Phys: Katy Haines MD Acct: [id number] Dis Date: Status: ADM IN PHONE #: [phone] Exam Date: 09/15/2018 1135 FAX #: [phone] Reason: ileus/sbo EXAMS: CPT CODE: [id number] XR ABDOMEN 1 V 11380 EXAM: - XR ABDOMEN 1 V HISTORY: [...] CC: Katy Haines MD Technologist: Jinny Kaur Trnorrd Date/Time/By: 09/15/2018 (5386) : By: [email or web address] PAGE 1 Signed Report FAX: Katy Pro MD [phone] [place]: [facility] St: ADM --------- Name: LAVONNE CONTRERAS [facility] : 1960 Age/S: 57/M [address] Un it #: [id number] Loc: C.[address] [place] [address] Phys: Katy Haines MD Acct: [id number] Dis Date: Status: ADM IN PH ONE #: [phone] Exam Date: 09/15/2018 1135 FAX #: [phone] Reason: ileus/sbo EXAMS: CPT CODE: [id number] XR ABDOMEN 1 V 94172 <Continued> Orig Print D/T: S: 09/15/2018 (2106) PAGE 2 Signed Report BASIC METABOLIC [id number] 09:26:00* Test Item Value Reference Range Interpretation [...] code = CA) 8.4 mg/dL 8.4-10.2 N [id number] 09:26:00* Test Item Value Reference Range Interpretation Comments PHOSPHOROUS (test code = PHOS) 2.7 mg/dL 2.5-4.5 N [id number] 09:26:00* Test Item Value Reference Range Interpretation Comments MAGNESIUM (test code = MAG) 2.4 mg/dL 1.6-2.3 H BASIC METABOLIC [id number] 09:06:00* Test Item Value Reference Range Interpretation [...] code = CA) 8.4 mg/dL 8.4-10.2 N [id number] 09:06:00* Test Item Value Reference Range Interpretation Comments PHOSPHOROUS (test code = PHOS) 2.7 mg/dL 2.5-4.5 N [id number] 09:06:00* Test Item Value Reference Range Interpretation Comments MAGNESIUM (test code = MAG) mg/dL 1.6-2.3 CBC W/AUTO [id number] 08:43:00* Test Item Value Reference Range Interpretation [...] BA#) 0.05 x10 3/uL 0.0-0.1 N LACTIC [id number] 16:39:00* Test Item Value Reference Range Interpretation Comments LACTIC ACID (test code = LACT) 0.7 mmol/L 0.7-2.0 N - XR CHEST 1 [id number] 14:36:00 FAX: Katy Pro MD [phone] [place]: St: ADM Name: LAVONNE BAEZA [place] : [birth year] Age/S: 57/M [address] Unit #: [id number] Loc: C.[address] [place] [address] Phys: Katy Haines MD Acct: [id number] Dis Date: Status: ADM IN PHONE #: [phone] Exam Date: 09/14/2018 1220 FAX #: [phone] Reason: R/O ASPIRATION EXAMS: CPT CODE: [id number] XR CHEST 1 V 94450 LOCATION: T18 EXAM: CHEST 1 VIEW INDICATION: R/O ASPIRATION COMPARISON : Chest x-ray August 11, 2018 TECHNIQUE: AP chest radiograph. FINDINGS: NG tube tip and side port within stomach. Right perihilar airspace opacity concerning for consolidation. Left lung is clear. Hea rt is normal in size. Bones and peripheral soft tissues are unremarkable. IMPRESSION: Right perihilar consolidation concerning for pneumon ia. at 8464 * * Reported and signed by: Claus Chang MD CC: Katy Haines MD Technologist : Joanie Head Trnscrd Date/Time/By: 0 09/14/2018 (5732) : By: [email or web address] PAGE 1 Signed Report FAX: Kayt Pro MD [place]: St: ADM Name: LAVONNE CONTRERAS : 1960 Age/S: 57/M [address] Unit #: [id number] Loc: C.[address] [place] [address] Phys: Katy Haines MD Acct: [id number] Dis Date: Status: ADM IN PHONE #: [phone] Exam Date: 09/14/2018 1220 FAX #: [phone] Reason: R/O ASPIRATION EXAMS: CPT CODE : [id number] XR CHEST 1 V 27028 <Continued> Orig Print D/T: S: 09/14/2018 (6826) PAGE 2 Signed Report BASIC METABOLIC [id number] 05:58:00* Test Item Value Reference Range Interpretation [...] code = CA) 8.7 mg/dL 8.4-10.2 N [id number] 05:58:00* Test Item Value Reference Range Interpretation Comments PHOSPHOROUS (test code = PHOS) 4.1 mg/dL 2.5-4.5 N [id number] 05:58:00* Test Item Value Reference Range Interpretation Comments MAGNESIUM (test code = MAG) 2.1 mg/dL 1.6-2.3 N CBC W/AUTO [id number] 05:33:00* Test Item Value Reference Range Interpretation [...] x10 3/uL 0.0-0.1 N - XR ABDOMEN [id number] 18:10:00 FAX: Luis Enrique Daniel MD [phone] [place]: St: ADM FAX: Katy Pro MD [phone] Name: LAVONNE CONTRERAS [facility] [place] : 1960 Age/S: 57/M [address] Unit #: [id number] Loc: C.[address] [place] [address] Phys: Luis Enrique Orellana MD Acct: [id number] Dis Date: Status: ADM IN PHONE #: [phone] Exam Date: 09/13/2018 1639 FAX #: [phone] Reason: SBO EXAMS: CPT CODE: [id number] XR ABDOMEN 2V 55656 LOCATION: T18 EXAM: - XR ABDOMEN 2V [...] MD; Katy Haines MD Techno logist: Teri Head; Valentina Pascual Trnorrd Date/Time /By: 09/13/2018 (1809) : By: [email or web address] PAGE 1 Signed Report FAX: Luis Enrique Daniel MD [phone] [place]: St: ADM FAX: Katy Pro MD [phone] ---- Name: LAVONNE CONTRERAS [facility] [place] : 1960 Age/S: 57/M [address] Unit #: [id number] Loc: C.[address] [place] [address] Phys: Luis Enrique Orellana MD Acct: [id number] Dis Date: Status: ADM IN PHONE # : [phone] Exam Date: 09/13/2018 1639 FAX #: Reason: SBO EXAMS : CPT CODE: [id number] XR ABDO MEN 2V [id number] <Continued> Orig Print D/T: S: 09/13/2018 (1813) PAGE 2 Signed Report BASIC METABOLIC [id number] 08:07:00* Test Item Value Reference Range Interpretation [...] code = CA) 9.0 mg/dL 8.4-10.2 N [id number] 08:07:00* Test Item Value Reference Range Interpretation Comments PHOSPHOROUS (test code = PHOS) 4.6 mg/dL 2.5-4.5 H [id number] 08:07:00* Test Item Value Reference Range Interpretation Comments TRIGLYCERIDES (test code = TRIG) 314 mg/dL TRIGLYCERIDES REFERENCE RANGE:Normal: <150 mg/dLBorderline High: 150-199 mg/dLHigh: 200-499 mg/dLVery High: >=500 mg/dL [id number] 08:07:00* Test Item Value Reference Range Interpretation Comments MAGNESIUM (test code = MAG) 2.2 mg/dL 1.6-2.3 N BASIC METABOLIC [id number] 08:06:00* Test Item Value Reference Range Interpretation [...] code = CA) 9.0 mg/dL 8.4-10.2 N [id number] 08:06:00* Test Item Value Reference Range Interpretation Comments PHOSPHOROUS (test code = PHOS) mg/dL 2.5-4.5 [id number] 08:06:00* Test Item Value Reference Range Interpretation Comments TRIGLYCERIDES (test code = TRIG) mg/dL [id number] 08:06:00* Test Item Value Reference Range Interpretation Comments MAGNESIUM (test code = MAG) mg/dL 1.6-2.3 PROTHROMBIN [id number] 07:54:00* Test Item Value Reference Range Interpretation [...] Drug Administrationrecommendations. IS PATIENT ON ANTICOAGULANTS ? [facility] W/AUTO [id number] 07:44:00* Test Item Value Reference Range Interpretation [...] = BA#) 0.05 x10 3/uL 0.0-0.1 N [id number] 16:05:00* Test Item Value Reference Range Interpretation Comments POTASSIUM (test code = K) 3.5 mmol/L 3.4-5.0 N BASIC METABOLIC [id number] 06:23:00* Test Item Value Reference Range Interpretation [...] code = CA) 8.9 mg/dL 8.4-10.2 N [id number] 06:23:00* Test Item Value Reference Range Interpretation Comments PHOSPHOROUS (test code = PHOS) 4.0 mg/dL 2.5-4.5 N [id number] 06:23:00* Test Item Value Reference Range Interpretation Comments MAGNESIUM (test code = MAG) 2.2 mg/dL 1.6-2.3 N BASIC METABOLIC [id number] 06:15:00* Test Item Value Reference Range Interpretation [...] code = CA) 8.9 mg/dL 8.4-10.2 N [id number] 06:15:00* Test Item Value Reference Range Interpretation Comments PHOSPHOROUS (test code = PHOS) mg/dL 2.5-4.5 [id number] 06:15:00* Test Item Value Reference Range Interpretation Comments MAGNESIUM (test code = MAG) mg/dL 1.6-2.3 CBC W/AUTO [id number] 05:47:00* Test Item Value Reference Range Interpretation [...] 0.06 x10 3/uL 0.0-0.1 N BASIC METABOLIC [id number] 08:44:00* Test Item Value Reference Range Interpretation [...] code = CA) 8.7 mg/dL 8.4-10.2 N [id number] 08:44:00* Test Item Value Reference Range Interpretation Comments PHOSPHOROUS (test code = PHOS) 3.0 mg/dL 2.5-4.5 N [id number] 08:44:00* Test Item Value Reference Range Interpretation Comments TRIGLYCERIDES (test code = TRIG) 320 mg/dL TRIGLYCERIDES REFERENCE RANGE:Normal: <150 mg/dLBorderline High: 150-199 mg/dLHigh: 200-499 mg/dLVery High: >=500 mg/dL [id number] 08:44:00* Test Item Value Reference Range Interpretation Comments MAGNESIUM (test code = MAG) 1.9 mg/dL 1.6-2.3 N BASIC METABOLIC [id number] 08:43:00* Test Item Value Reference Range Interpretation [...] code = CA) 8.7 mg/dL 8.4-10.2 N [id number] 08:43:00* Test Item Value Reference Range Interpretation Comments PHOSPHOROUS (test code = PHOS) mg/dL 2.5-4.5 [id number] 08:43:00* Test Item Value Reference Range Interpretation Comments TRIGLYCERIDES (test code = TRIG) mg/dL [id number] 08:43:00* Test Item Value Reference Range Interpretation Comments MAGNESIUM (test code = MAG) mg/dL 1.6-2.3 PROTHROMBIN [id number] 08:39:00* Test Item Value Reference Range Interpretation [...] IS PATIENT ON ANTICOAGULANTS ? NOCBC W/AUTO [id number] 08:33:00* Test Item Value Reference Range Interpretation [...] x10 3/uL 0.0-0.1 N - XR ABDOMEN [id number] 06:12:00 FAX: Luis Enrique Daniel MD [phone] [place]: St: [facility] FAX: Katy Pro MD [phone] Name: LAVONNE CONTRERAS [facility] : 1960 Age/S: 57/M [address] Unit #: [id number] Loc: C.[address] [place] [address] Phys: Luis Enrique Orellana MD Acct: [id number] Dis Date: Status: ADM IN PHONE #: [phone] Exam Date: 09/11/2018 0450 FAX #: [phone] Reason: NAUSEA AND VOMITING EXAMS: CPT CODE: [id number] XR ABDOMEN 2V 41751 AFTER HOURS SERVICE ON: 09/11/2018 6:11 AM [...] Signed Report FAX: Luis Enrique Daniel MD [phone] [place]: St: ADM FAX: Katy Pro MD [phone] Name: Opal CONTRERAS [facility] : 1960 Age/ S: 57/M [address] Unit #: [id number] Loc: C [address] [place] [address] Phys: Luis Enrique Orellana MD Acct: [id number] Dis Date: Status: ADM IN PHONE #: [phone] Exam Date: 09/11/2018 7837 FAX #: [phone] Reason: NAUSEA AND VOMITING EXAMS: CPT CODE: [id number] XR ABDOMEN 2V 91565 <Continued> Orig Print D/T: S: 09/11/2018 (0616) PAGE 2 Signed Report APPENDIX,OTHER THAN [id number] 20:01:00 RUN DATE: 09/09/18 [facility] RUN TIME: 2001 Specimen Inqui ry RUN USER: INTERFACE PATIENT: LAVONNE CONTRERAS ACCT #: [id number] LOC: MATEUS U #: [id number] AGE/SX: 57/M ROOM: [facility] RE09/02/18[facility] DR: Jayde Lee DO : 62 BED: A DIS: STATUS: ADM IN TLOC: SPEC #: [id number] RECD: 09/05/18 STATUS: VICK JOHNSON #: [id number] SORIN: 09/05/18 [facility] DR: Alessandro Galindo ENTERED: 09/05/18 SP TYPE: APPENDIX OTHR DR: Nadya cohen or Family Physician Luis Enrique Orellana MD,Thom Barney,Nikos Joseph MDORDERED: PATHGM3, # OF BLOCKS/2, # OF SLIDES/2 TISSUES: A. APPENDIX, NOS CLIN ICAL HISTORY INCIDENTAL APPENDECTOMY. FINAL MICROSCOPIC DIAGNOSIS VERMIF ORM APPENDIX, INCIDENTAL APPENDECTOMY: VERMIFORM APPENDIX WITH NO PATHOLOGI C CHANGE. CPT: 91280 GROSS DESCRIPTION The specimen is received in [...] 09/09/182000 END OF REPORT - XR ABDOMEN [id number] 09:19:00 FAX: Luis Enrique Daniel MD [phone] [place]: St: ADM Name: LAVONNE BAEZA [place] : 10/20/18 63 Age/S: 57/M [address] Unit #: [id number] Loc: C[address] [place] [address] Phys: Luis Enrique Orellana MD Acct: [id number] Dis Date: Status: ADM IN PHONE #: [phone] Exam Date: 09/09/2018906 FAX #: [phone] Reason: COMPARE TO LAST SCAN EXAMS: CPT CODE: [id number] XR ABDOMEN 2V 20158 EXAM: - XR ABDOMEN 2V HISTORY: Partial [...] Luis Enrique Orellana MD Technologist: Krupa Menard Trnorrd Date/Time/By: 09/09/2018 (918) : By: [email or web address] PAGE 1 Signed Report FAX: Luis Enrique Daniel MD [phone] [place]: St: ADM------- Name: LAVONNE CONTRERAS : [birth year] Age/S: 57/M [address] Unit #: [id number] Loc: [address] [place] [address] Phys: Luis Enrique Orellana MD Acct: [id number] Dis Date: Status: ADM IN PHONE #: [phone] Exam Date: 09/09/2018 09 FAX #: [phone] Reason: COMPARE TO LAST SCAN EXAMS: CPT CODE: [id number] XR ABDOMEN 2V 72721 <Continued> Orig Print D/T: S: 09/09/2018 (6611) PAGE 2 Signed Report COMPREHENSIVE METABOLIC [id number] 06:54:00* Test Item Value Reference Range Interpretation [...] code = ALKP) 141 U/L 38-126 H [id number] 06:54:00* Test Item Value Reference Range Interpretation Comments MAGNESIUM (test code = MAG) 1.9 mg/dL 1.6-2.3 N CBC W/AUTO [id number] 06:23:00* Test Item Value Reference Range Interpretation [...] 0.03 x10 3/uL 0.0-0.1 N COMPREHENSIVE METABOLIC [id number] 08:06:00* Test Item Value Reference Range Interpretation [...] code = ALKP) 135 U/L 38-126 H [id number] 08:06:00* Test Item Value Reference Range Interpretation Comments PHOSPHOROUS (test code = PHOS) 2.2 mg/dL 2.5-4.5 L [id number] 08:06:00* Test Item Value Reference Range Interpretation Comments MAGNESIUM (test code = MAG) 2.2 mg/dL 1.6-2.3 N CBC W/AUTO [id number] 07:28:00* Test Item Value Reference Range Interpretation [...] x10 3/uL 0.0-0.1 N - XR ABDOMEN [id number] 23:38:00 FAX: Luis Enrique Daniel MD [phone] [place]: St: [facility] FAX: Suresh Dinero [facility] [place] [facility] 1960 Age/S: 57/M [address] Unit #: [id number] Loc: C.[address] [place] [address] Phys: Luis Enrique Orellana MD Acct: [id number] Dis Date: Status: ADM IN PHONE #: [phone] Exam Date: 09/07/2018 2250 FAX #: [phone] Reason: f/u ileus. s/p bowel resection for sbo EXAMS: CPT CODE: [id number] XR ABDOMEN 2V 60356 HISTORY: Follow-up Location: C3 COMPARISON: 9 FINDINGS: [...] by Tony Islas MD on 09/07/2018 at 2338 Re ported and signed by: Tony Islas MD CC: Luis Enrique Orellana MD ; Suresh Gonzalez MD Technologist: Joanie Head Trnscrd Date/Time/By: 09/07/2018 (6828) : By: Rafia [email or web address] PAGE 1 Signed Report FAX: Luis Enrique Daniel MD [phone] [place]: St: AD M FAX: Suresh Dinero [facility] [place] : 1960 Age/S: 57/M [address] Unit #: [id number] Loc: C.[address] [place] [address] Phys: Lius Enrique Orellana MD Acct: [id number] Dis Date: Status: ADM IN PHONE #: [phone] Exam Date: 09/07/2018 225 FAX #: [phone] Reason: f/u ileus. s/p bowel resection for sbo EXAMS: CPT CODE: [id number] XR ABDOMEN 2V 44979 <Continued> Orig Print D/T: S: 09/07/2018 (1474) PAGE 2 Signed Report ACUTE HEPATITIS [id number] 18:00:00* Test Item Value Reference Range Interpretation [...] code = HCVAB) NEGATIVE NEGATIVE ACUTE HEPATITIS [id number] 17:17:00* Test Item Value Reference Range Interpretation Comments HEP A AB TOTAL ONLY (test code = HAVAB) NEGATIVE HEP A AB IGM QUAL (test code = HAVMAB) NEGATIVE NEGATIVE AG HEPATITIS B SURFACE (test code = HBSAG) NEGATIVE NEGATIVE HEP B CORE AB IGM QL (test code = HBCMAB) NEGATIVE NEGATIVE AB HEPATITIS C (test code = HCVAB) NEGATIVE ACUTE HEPATITIS [id number] 17:07:00* Test Item Value Reference Range Interpretation Comments HEP A AB TOTAL ONLY (test code = HAVAB) NEGATIVE HEP A AB IGM QUAL (test code = HAVMAB) NEGATIVE AG HEPATITIS B SURFACE (test code = HBSAG) NEGATIVE NEGATIVE HEP B CORE AB IGM QL (test code = HBCMAB) NEGATIVE AB HEPATITIS C (test code = HCVAB) NEGATIVE - US ABDOMEN [id number] 10:37:00 FAX: Alessandro Latham MD [phone] [place]: St: ADM FAX: Katy Pro MD [phone] Name: LAVONNE CONTRERAS [facility] : 1960 Age/S: 57/M [address] Unit #: [id number] Loc: [address] [place] [address] Phys: Katy Haines MD Acct: [id number] Dis Date: Status: ADM IN PHONE #: [phone] Exam Date: 09/04/2018 1023 FAX #: [phone] Reason: ABDOMINAL PAIN WITH T RANSAMINITIS EXAMS: CPT CODE: [id number] US ABDOMEN COMPLETE 11066 Ultrasound abdomen History: ABDOMINAL PAIN WITH TR [...] Signed Report (CONTINUED) FAX: Alessandro Olson MD [phone] [place]: [facility]: [facility] FAX: Katy Pro MD [phone] Name: LAVONNE CONTRERAS [facility] : 1960 Age/S: 57/M [address] Unit #: [id number] Loc: [address] [place] [address] Phys: Ktay Haines MD ct: [id number] Dis Date: Status: ADM IN PHONE #: [phone] Exam Date: 09/04/2018 1023 FAX #: [phone] Reason: ABDOMINAL PAIN WITH TRANSAMINITIS EXAMS: CPT CODE: [id number] US ABDOMEN COMPLETE 37220 < Continued> CC: Alessandro Galindo MD; Katy Haines MD Technologist: Keiry Crowe RDPA Trnorrd Date/Time/By: 09/04/2018 (1037) : By: Jesús PAGE 2 Signed Report FAX: Alessandro Latham MD [phone] [place]: [facility]: ADM FAX: Katy Pro MD [phone] Name: LAVONNE CONTRERAS : 1960 Age/S: 57/M [address] Unit #: [id number] Loc: [address] [place] [address] Phys: Katy Haines MD Acct: [id number] Dis Date: Status: ADM IN PHONE #: [phone] Exam Date: 09/04/2018 1023 FAX #: [phone] Reason: ABDOMINAL PAIN WITH TRANSAMINITIS EXAMS: CPT CODE: [id number] ABDOMEN COMPLETE 97492 < Continued> Orig Print D/T: S: 09/04/2018 (1908) PAGE 3 Signed Report LIVER FUNCTION [id number] 13:35:00* Test Item Value Reference Range Interpretation [...] ALKP) 134 U/L 38-126 H GAMMA GLUTAMYL [id number] 13:35:00* Test Item Value Reference Range Interpretation Comments GAMMA GLUTAMYL TRANSPEPTIDASE (test code = GGT) 294 U/L 12-58 H [id number] 13:35:00* Test Item Value Reference Range Interpretation Comments MAGNESIUM (test code = MAG) 2.1 mg/dL 1.6-2.3 N LIVER FUNCTION [id number] 13:34:00* Test Item Value Reference Range Interpretation [...] ALKP) 134 U/L 38-126 H GAMMA GLUTAMYL [id number] 13:34:00* Test Item Value Reference Range Interpretation Comments GAMMA GLUTAMYL TRANSPEPTIDASE (test code = GGT) U/L 12-58 [id number] 13:34:00* Test Item Value Reference Range Interpretation Comments MAGNESIUM (test code = MAG) mg/dL 1.6-2.3 BASIC METABOLIC [id number] 08:02:00* Test Item Value Reference Range Interpretation [...] code = CA) 9.1 mg/dL 8.4-10.2 N [id number] 08:02:00* Test Item Value Reference Range Interpretation Comments MAGNESIUM (test code = MAG) 2.1 mg/dL 1.6-2.3 N CBC W/AUTO [id number] 07:56:00* Test Item Value Reference Range Interpretation [...] PLATELET CLUMPS SEEN NOR MAL CBC W/AUTO [id number] 07:35:00* Test Item Value Reference Range Interpretation [...] 0.03 x10 3/uL 0.0-0.1 N CBC W/AUTO [id number] 07:35:00* Test Item Value Reference Range Interpretation [...] 3/uL 0.0-0.1 N - XR ABDOMEN 1 [id number] 06:07:00 FAX: Martin Brady MD [place]: [facility]: [facility] FAX: Nikos Arizmendi MD [phone] Name: LAVONNE CONTRERAS [facility] : 1960 Age/S: 57/M [address] Unit #: [id number] Loc: C[address] [place] [address] Phys: Nikos Barney MD Acct: [id number] Dis Date: Status: ADM IN PHONE #: [phone] Exam Date: 09/03/2018539 FAX #: [phone] Reason: SBO EXAMS: CPT CODE: [id number] XR ABDOMEN 1 V 62296 EXAM: Abdomen 1 view LOCATION: C3 HISTORY: SBO COMPARISON: 08/15/2018 FINDINGS: Single frontal view of the abdomen. Few dilated loops of small bowel are seen centrally. No suspicious calcifications identified. No acute osseous findings. IMPRESSION: Ileus versus partial small bowel obstruction. Air is identified in the ascending colon. at 0607 Reported and signed by: Javon Carver MD CC: Martin Lunsford MD; Nikos Barney MD Technologist: RT Armand (R) Trnscrd Date/Time/By: 09/03/2018 (0607) : By: [email or web address] PAGE 1 Signed Report FAX: Martin Brady MD [facility] s: St: ADM FAX: Nikos Arizmendi MD [phone] Name: DIANE LAVONNE [facility] : 1960 e/S: 57/M [address] Unit #: [id number] Loc: [address] [place] [address] Phys: Nikos Barney MD Acct: [id number] Dis Date: Status: ADM IN PHONE #: [phone] Ex am Date: 09/03/2018539 FAX #: [phone] Reaso n: SBO EXAMS: CPT CODE: [id number] XR ABDOMEN 1 V 50917 <Continued> Orig Print D/T: S: 09/03/2018 (0611) [...] CHD)40-59mg/dL: Borderline Risk LDL Cholesterol<100mg/dL: Desirable LDL-C ledftxtpljvkl782-819rh/dL: Borderline High Risk LDL-C eicchsxawkudp821- 189mg/dL: High risk LDL-C concentration HDL-LDL Cholesterol [...] CHD)40-59mg/dL: Borderline Risk LDL Cholesterol<100mg/dL: Desirable LDL-C utfsceugkgrpl116-728nj/dL: Borderline High Risk LDL-C iegryzogptobu284- 189mg/dL: High risk LDL-C concentration HDL-LDL Cholesterol is affected by a number of factors suchas smoking, age and sex.~~~~~~~~~~~~~~~~~~~~~~~~~~~~~~~~~~~~~~~~~~~~~~~~~~~~~~~~~~~~ BASIC METABOLIC [id number] 18:08:00* Test Item Value Reference Range Interpretation [...] = CA) 10.9 mg/dL 8.4-10.2 H PROTHROMBIN [id number] 18:03:00* Test Item Value Reference Range Interpretation [...] with Food and Drug Administrationrecommendations. THROMBOPLASTIN TIME [id number] 18:03:00* Test Item Value Reference Range Interpretation Comments THROMBOPLASTIN TIME PARTIAL (test code = PTT) 18.2 SECONDS 23.4-37. 0 L Therapeutic Range for Heparin EFFECTIVE 11/12/12 Heparin IU/mL aPTT Seconds0.3 64.30.7 88.8 CBC W/AUTO [id number] 18:01:00* Test Item Value Reference Range Interpretation [...] 0.04 x10 3/uL 0.0-0.1 N TROPONIN I [id number] 17:55:00* Test Item Value Reference Range Interpretation [...] only if similarmethodology is used. CBC W/AUTO [id number] 08:40:00* Test Item Value Reference Range Interpretation [...] (test code = PLTMORPH) NORMAL NORMAL DIFFERENTIAL [id number] 08:40:00* Test Item Value Reference Range Interpretation [...] OVAL) 1+ NONE SEEN A COMPREHENSIVE METABOLIC [id number] 06:04:00* Test Item Value Reference Range Interpretation [...] code = ALKP) 107 U/L 38-126 N [id number] 06:04:00* Test Item Value Reference Range Interpretation Comments MAGNESIUM (test code = MAG) 2.2 mg/dL 1.6-2.3 N COMPREHENSIVE METABOLIC [id number] 05:59:00* Test Item Value Reference Range Interpretation [...] code = ALKP) 107 U/L 38-126 N [id number] 05:59:00* Test Item Value Reference Range Interpretation Comments MAGNESIUM (test code = MAG) mg/dL 1.6-2.3 CBC W/AUTO [id number] 05:47:00* Test Item Value Reference Range Interpretation [...] 0.04 x10 3/uL 0.0-0.1 N CBC W/AUTO [id number] 05:47:00* Test Item Value Reference Range Interpretation [...] 0.04 x10 3/uL 0.0-0.1 N CBC W/AUTO [id number] 05:44:00* Test Item Value Reference Range Interpretation [...] 3/uL 0.0-0.1 N - XR ABDOMEN 1 [id number] 04:50:00 FAX: Stormy Hernandez MD [phone] [place]: St: ADM FAX: Henry Kunz [phone] Name: LAVONNE CONTRERAS [facility] : 1960 Age/S: 57/M [address] Unit #: [id number] Loc: [address] [address] Phys: Henry Smith MD Acct: [id number] Dis Date: Status: ADM IN PHONE #: [phone] Exam Date: 08/15/20182 FAX #: [phone] Reason: r/o sbo EXAMS: CPT CODE: [id number] XR ABDOMEN 1 V 51940 HISTORY: Male, 57 years of age with [...] Corrales MD; Lissa Smith Technologist: JORGE ALBERTO WHITLOCK (R); Patricia Tucker Trnscrd Date/Time/By: 08/15/2018 (8543) : By: [facility] PAGE 1 Signed Report FAX: Stormy Hernandez MD [phone] [place]: [facility]: ADM FAX: Henry Kunz [phone] Name: LAVONNE CONTRERAS [facility] : 1960 Age/S: 57/M [address] Unit #: [id number] Loc: [address] [address] Phys: Henry Smith MD Acct: [id number] Dis Date: Status: ADM IN PHONE #: [phone] Exam Date: 08/15/2018251 FAX #: [phone] Reason: r/o sbo EXAMS: CPT CODE: [id number] XR ABDOMEN 1 V 10998 < Continued> Orig Print D/T: S: 08/15/2018 (0451) PAGE 2 Signed Report - XR SMALL [id number] 14:16:00 FAX: Sage Noland [place]: [facility]: ADM FAX: Stormy Hernandez MD [phone] [facility] [place] : 1960 Age/S: 57/M [address] Unit #: [id number] Loc: [address] [place] [address] Phys: Sage Noland MD Acct: [id number] Dis Date: Status: ADM IN PHONE #: [phone] Exam Date: 08/14/2018 1310 FAX #: [phone] Reason: SBO EXAMS: CPT CODE: [id number] XR SMALL BOWEL 61565 C3 TIME OF STUDY: 08/14/2018 REASON FOR [...] Bruno Nair MD CC: Sage Noland MD; Stromy Corrales MD Technologist: Dilcia Menard Trnscrd Date/Time/By: 08/14/2018 (1416) : By: [email or web address] PAGE 1 Signed Report FAX: Sage Dubose [place]: St: [facility] FAX: Stormy Hernandez MD [phone] Name: [facility] [place] : 1960 Age/S: 57/M [address] Unit #: [id number] Loc: [address] [place] [address] Phys: Sage Noland MD Acct: [id number] Dis Date: Status: ADM IN PHONE #: [phone] Exam Date: 08/14/2018 1310 FAX #: [phone] Reason: SBO EXAMS: CPT CODE: [id number] XR SMALL BOWEL 33911 < Continued> Orig Print D/T: S: 08/14/2018 (5501) PAGE 2 Signed Report LIPID PROFILE (CORONARY [...] CHD)40-59mg/dL: Borderline Risk LDL Cholesterol<100mg/dL: Desirable LDL-C tnsrkakbhdasy187-054iq/dL: Borderline High Risk LDL-C slqwexjrkoouy345- 189mg/dL: High risk LDL-C concentration HDL-LDL Cholesterol [...] CHD)40-59mg/dL: Borderline Risk LDL Cholesterol<100mg/dL: Desirable LDL-C yosgncowjfcxd948-755so/dL: Borderline High Risk LDL-C fdnicfqkshepy470- 189mg/dL: High risk LDL-C concentration HDL-LDL Cholesterol is affected by a number of factors suchas smoking, age and sex.~~~~~~~~~~~~~~~~~~~~~~~~~~~~~~~~~~~~~~~~~~~~~~~~~~~~~~~~~~~~ - CT ABD PELVIS [id number] 22:12:00 [place]: St: ADM Name: LAVONNE HEALY [facility] : 2 Age/S: 57/M [address] Unit: [id number] [place]: [place] [address] Phys: Jeanne Urena DO Acct: [id number] Dis Date: Status: ADM IN PHONE #: [phone] Exam Date: 08/13/20184 FAX #: [phone] Reason: abd pain EXAMS: CPT CODE: [id number] CT ABD PELVIS W/CONT 07108 EXAM: CT ABDOMEN AND PELVIS WITH I [...] Stomach is PAGE 1 Signed Report (CONTINUED) [place]: St: ADM Name: LAVONNE CONTRERAS [facility] : 1960 Age/S: 57/M [address] Unit: [id number] Loc: [place] [address] Phys: Jeanne Urena DO Acct: [id number] Dis Date: Status: ADM IN PHONE #: [phone] Exam Date: 08/13/20182153 FAX #: [phone] Reason: abd pain EXAMS: CPT CODE: [id number] CT ABD PELVIS W/CONT 02683 <Continued> unremarkable. Vascular: Atherosclerotic calcifications are seen [...] Signed Report UA RFLX MICR CULT IF [id number] 18:52:00* Test Item Value Reference Range Interpretation [...] between 0.5-2.0 NG/ML are obtained. BASIC METABOLIC [id number] 18:28:00* Test Item Value Reference Range Interpretation [...] CA) 10.4 mg/dL 8.4-10.2 H LIVER FUNCTION [id number] 18:28:00* Test Item Value Reference Range Interpretation [...] code = ALKP) 118 U/L 38-126 N [id number] 18:28:00* Test Item Value Reference Range Interpretation Comments LIPASE (test code = LIP) 259 U/L 23-300 N BASIC METABOLIC [id number] 18:27:00* Test Item Value Reference Range Interpretation [...] CA) 10.4 mg/dL 8.4-10.2 H LIVER FUNCTION [id number] 18:27:00* Test Item Value Reference Range Interpretation [...] code = ALKP) 118 U/L 38-126 N [id number] 18:27:00* Test Item Value Reference Range Interpretation Comments LIPASE (test code = LIP) U/L 23-300 CBC W/AUTO [id number] 18:16:00* Test Item Value Reference Range Interpretation [...] x10 3/uL 0.0-0.1 N - XR ABDOMEN [id number] 18:07:00 [place]: St: PRE Name: LAVONNE BAEZA [facility] [place] : [birth year] 63 Age/S: 57/M [address] Unit #: [id number] Loc: [place] [address] Phys: Donal Hays Acct: [id number] Dis Date: Status: PRE ER PHONE #: [phone] Exam Date: 08/13/2018 170 FAX #: [phone] Reason: sbo, pain EXAMS: CPT CODE: [id number] XR ABDOMEN 2V 75192 C3 TIME OF STUDY: 08/13/2018 4:21 PM [...] Angulo rnscrd Date/Time/By: 08/13/2018 (1806) : By: [email or web address] PAGE 1 Signed Report [place]: St: PRE Name: LAVONNE CONTRERAS [facility] [place] : 1960 Age/S: 57/M [address] Unit #: [id number] Loc: [place] [address] Phys: Donal Hays Acct: [id number] Dis Date: Status: PRE ER PHONE #: [phone] Exam Date: 08/13/2018 1705 FAX #: [phone] Reason: sbo, pain EXAMS: CPT CODE: [id number] XR ABDOMEN 2V 44560 <Continued> Orig Print D/T: S: 08/13/2018 (0601) PAGE 2 Signed Report LACTIC ACID [id number] 17:36:00* Test Item Value Reference Range Interpretation Comments LACTIC ACID POC (test code = LACTP) 1.74 mmol/L 0.7-2.0 N - XR ABDOMEN 1 [id number] 05:49:00 FAX: Maria Teresa Lynne MD [phone] [place]: St: ADM FAX: Nikos Arizmendi MD [phone] Name: DIANELAVONNE [facility] : 1960 Age/S: 57/M [address] Unit #: [id number] Loc: [address] [place] [address] Phys: Nikos Barney MD Acct: [id number] Dis Date: Status: ADM IN PHONE #: [phone] Exam Date: 08/13/2018 0505 FAX #: [phone] Reason: SBO EXAMS: CPT CODE: [id number] XR ABDOMEN 1 V 18840 Exam: KUB. Location: F6 History: SBO Findings: [...] is present. Impression : Stable exam. at 0513 Reported and signed by: Cindy Randle ncco CC: Maria Teresa Gottlieb MD; Nikos Barney MD Technologist: RT Armand (R) Trnscrd Date/Time/By: 08/13/2018 (0549) : By: Puneet PAGE 1 Signed Report FAX: Maria Teresa Solano MD [phone] [place]: [facility]: ADM FAX: Nikos Arizmendi MD [phone] Name: LAVONNE CONTRERAS [facility] : 1960 Age/S: 57/M [address] Unit #: [id number] Loc: C.[address] [place] [address] Phys: Nikos Barney MD Acct: [id number] Dis Date: Status: ADM IN PHONE #: [phone] Exam Date: 08/13/2018 0505 FAX #: [phone] Reason: SBO EXAMS: CPT CODE: [id number] XR ABDOMEN 1 V 68266 < Continued> Orig Print D/T: S: 08/13/2018 (0552) PAGE 2 Signed Report - XR ABDOMEN 1 [id number] 05:30:00 FAX: Maria Teresa Lynne MD [phone] [place]: St: ADM FAX: Nikos Arizmendi MD [phone] Name: LAVONNE CONTRERAS [facility] [place] : 1960 Age/S: 57/M [address] Unit #: [id number] Loc: C.[address] [place] [address] Phys: Nikos Barney MD Acct: [id number] Dis Date: Status: ADM IN PHONE #: [phone] Exam Date: 08/12/2018509 FAX #: [phone] Reason: SBO EXAMS: CPT CODE: [id number] XR ABDOMEN 1 V 12086 Exam: KUB. Location: F6 History: SBO COMPARISON: [...] Barney MD Technologist: YANA SHEARER RT (R) Trnorrd Date/Time/By: (0530) : By: Tanna PAGE 1 Signed Report FAX: Maria Teresa Lynne MD [place]: St: ADM FAX: Nikos Arizmendi MD [phone] -- N alexandra: LAVONNE CONTRERAS [facility] : 1960 Age/S: 57/M [address] Unit #: [id number] Loc: C.4905 [place] [address] Phys: Hernan Barney MD Acct: [id number] Dis D ate: Status: ADM IN PHONE #: Exam Date: 08/12/2018509 FAX #: Reason: SBO EXAMS: CPT CODE: [id number] XR ABDOMEN 1 V 93798 <Continued> Orig Print D/T: S: 08/12/2018 (1969) PAGE 2 Signed Report BASIC METABOLIC [id number] 07:19:00* Test Item Value Reference Range Interpretation [...] code = CA) 9.1 mg/dL 8.4-10.2 N [id number] 07:19:00* Test Item Value Reference Range Interpretation Comments PHOSPHOROUS (test code = PHOS) 3.6 mg/dL 2.5-4.5 N [id number] 07:19:00* Test Item Value Reference Range Interpretation Comments MAGNESIUM (test code = MAG) 2.2 mg/dL 1.6-2.3 N BASIC METABOLIC [id number] 07:18:00* Test Item Value Reference Range Interpretation [...] code = CA) 9.1 mg/dL 8.4-10.2 N [id number] 07:18:00* Test Item Value Reference Range Interpretation Comments PHOSPHOROUS (test code = PHOS) mg/dL 2.5-4.5 [id number] 07:18:00* Test Item Value Reference Range Interpretation Comments MAGNESIUM (test code = MAG) mg/dL 1.6-2.3 CBC W/AUTO [id number] 07:05:00* Test Item Value Reference Range Interpretation [...] 3/uL 0.0-0.1 N - XR ABDOMEN 1 [id number] 05:02:00 FAX: Maria Teresa Lynne MD [phone] [place]: St: ADM FAX: Nikos Arizmendi MD [phone] Name: DIANELAVONNE [facility] : 1960 Age/S: 57/M [address] Unit #: [id number] Loc: C.33[address] [place] [address] Phys: Nikos Barney MD Acct: [id number] Dis Date: Status: ADM IN PHONE #: [phone] Exam Date: 08/11/2018 0332 FAX #: [phone] Reason: SBO EXAMS: CPT CODE: [id number] XR ABDOMEN 1 V 64010 Location: U19. ABDOMEN, 1 VIEW HISTORY:SBO FINDINGS: [...] MD Technologist: JORGE ALBERTO WHITLOCK (R); [facility] Date/Time/By: 08/11/2018 (8726) : By: [email or web address] PAGE 1 Signed Report FAX: Maria Teresa Lynne MD [phone] [place]: St: ADM FAX: Nikos Arizmendi MD [phone] Name: LAVONNE CONTRERAS [facility] Luis Eduardo baker : 1960 Age/S: 57/M [address] Unit #: [id number] Loc: C.[address] [place] [address] Phys: Nikos Barney MD Acct: [id number] Dis Date: Status: ADM IN PHONE #: [phone] Exam Date: 08/11/2018 0332 FAX #: [phone] Reason: SBO EXAMS: CPT COD E: [id number] XR ABDOMEN 1 V 97412 <Continued> Orig Print D/T: S: 08/11/2018 (0736) PAGE 2 Signed Report - XR CHEST 1 [id number] 03:21:00 FAX: Maria Teresa Lynne MD [phone] [place]: St: ADM Name: LAVONNE BAEZA [facility] Charly : [birth year] Age/S: 57/M [address] Unit #: [id number] Loc: C.[address] [place] [address] Phys: Maria Teresa Gottlieb MD Acct: [id number] Dis Date: Status: ADM IN PHONE #: [phone] Exam Date: 08/11/2018257 FAX #: [phone] Reason: NGT INSERTION VERIFICATION EXAMS: CPT CODE: [id number] XR CHEST 1 V 55792 EXAM: - XR CHEST 1 V HISTORY: [...] d Report FAX: Maria Teresa Lynne MD [place]: St: ADM Name: LAVONNE CONTRERAS [facility] Luis Eduardo baker : 1960 Age/S: 57/M [address] Unit #: [id number] Loc: C.[address] [place] [address] Phys: Maria Teresa Gottlieb MD Acct: [id number] Dis Date: Status: ADM IN PHONE #: [phone] Exam Date: 08/11/2018257 FAX #: [phone] Reason: NGT INSERTION VERIFICATION EXAMS: CPT COD E: [id number] XR CHEST 1 V 76724 <Continued> Trnscrd Date/Time/By: 08/11/2018 (0321) : By: [email or web address] PAGE 2 Signed Report UA RFLX MICR CULT IF [id number] 01:18:00* Test Item Value Reference Range Interpretation [...] between 0.5-2.0 NG/ML are obtained. BASIC METABOLIC [id number] 00:15:00* Test Item Value Reference Range Interpretation [...] CA) 9.3 mg/dL 8.4-10.2 N LIVER FUNCTION [id number] 00:15:00* Test Item Value Reference Range Interpretation [...] code = ALKP) 95 U/L 38-126 N [id number] 00:15:00* Test Item Value Reference Range Interpretation Comments LIPASE (test code = LIP) 133 U/L 23-300 N PROTHROMBIN [id number] 00:12:00* Test Item Value Reference Range Interpretation [...] with Food and Drug Administrationrecommendations. CBC W/AUTO [id number] 00:00:00* Test Item Value Reference Range Interpretation [...] 3/uL 0.0-0.1 N - CT ABD PELVIS [id number] 23:42:00 [place]: St: REG Name: LAVONNE HEALY : 2 Age/S: 57/M [address] Unit: [id number] Loc: [place] [address] Phys: Jim Brito MD Acct: [id number] Dis Date: Status: REG ER PHONE #: Exam Date: 08/10/2018 3549 FAX #: [phone] Reason: abd pain EXAMS: CPT CODE: [id number] CT ABD PELVIS W/CONT 26068 Exam: CT abdomen and pelvis with contrast. [...] unremarkable exam. PAGE 1 Signed Report (CONTINUED) [place]: St: REG Name: LAVONNE CONTRERAS : 1960 Age/S: 57/M [address] Unit: [id number] Loc: [place] [address] Phys: Jim Brito MD Acct: [id number] Dis Date: Status: REG ER PHONE #: [phone] Exam Date: 9 8970 FAX #: [phone] Reason: abd pain EXAMS: CPT CODE: [id number] CT ABD PELVIS W/CONT 08724 <Continued> at 2342 Reported and signed by: Michael Randle CC: Technologist: Monica Bobo Trnscrd Dt/Tm: 08/10/2018 (7712) TannaFC Orig Print D/T: S: 08/10/2018 (0683 PAGE 2 Signed Report BEDSIDE [id number] 23:25:00* Test Item Value Reference Range Interpretation Comments BEDSIDE CREATININE (test code = CREATBED) 0.9 mg/dL 0.66-1.25 N LACTIC ACID [id number] 23:13:00* Test Item Value Reference Range Interpretation Comments LACTIC ACID POC (test code = LACTP) 1.67 mmol/L 0.7-2.0 N
[2020-04-04] MEDS ORDERED: LIDOCAINE JELLY 2% 10ML URO-JET TOP ONE (12:15)
[2020-04-04] MEDS ORDERED: SODIUM CHLORIDE 0.9% 500ML 500 ML ONE (13:51)
[2020-04-04 14:07] LABS: COLOR,URINE YELLOW (YELLOW)
[2020-04-04 14:08] LABS: BILIRUBIN,URINE NEGATIVE (NEGATIVE); KETONES,URINE NEGATIVE (NEGATIVE); LEUKOCYTE ESTERASE ,URINE TRACE (NEGATIVE); NITRITE,URINE NEGATIVE (NEGATIVE); PROTEIN,URINE DIPSTICK 1+ (NEGATIVE); URINE UROBILINOGEN 0.2 mg/dL (0.2 - 1)
[2020-04-04 14:19] LABS: WBC,URINE (MAN) >50 /HPF (0-5)
[2020-04-04 14:20] LABS: BACTERIA,URINE MANY /HPF; RBC,URINE >50 /HPF (0-5)
[2020-04-04 14:21] LABS: CLARITY,URINE CLOUDY (CLEAR); EPITHELIAL CELLS,URINE FEW /LPF
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
[2020-04-04] MEDS ORDERED: CEFTRIAXONE SOD 1 GM VIAL IM ONE (15:15)
[2020-04-04] MEDS ORDERED: LIDOCAINE HCL 1% 2 ML AMP ONE (15:36)
--- NOTE | 2020-04-04 15:45 | Diagnostic Imaging Report ---
EXAM: CT Abdomen and Pelvis WITHOUT IV CONTRAST and WITH intracatheter contrast - CT cystogram protocol INDICATION: Rosales catheter localization COMPARISON: None. TECHNIQUE: Abdomen and pelvis were scanned utilizing a multidetector helical scanner from the lung base to the pubic symphysis before and after administration of intracatheter contrast. Coronal and sagittal reformations were obtained. CT cystogram protocol was used. Scan was performed prior to contrast administration and during portal venous phase. IV CONTRAST: 50mL of Isovue 370/saline mixture ORAL CONTRAST: None COMPLICATIONS: None RADIATION DOSE: Total DLP: 1502 mGy*cm Dose modulation, iterative reconstruction, and/or weight based adjustment of the mA/kV was utilized to reduce the radiation dose to as low as reasonably achievable. FINDINGS: LOWER THORAX: Normal. HEPATOBILIARY: No focal hepatic lesions. No biliary ductal dilatation. Status post cholecystectomy. SPLEEN: No splenomegaly. PANCREAS: No focal masses or ductal dilatation. ADRENALS: No adrenal nodules. KIDNEYS/URETERS: No hydronephrosis, stones, or solid mass lesions. PELVIC ORGANS/BLADDER: Rosales catheter terminates in the bladder. Postcontrast images and straight opacification of the bladder with contrast without evidence of extravasation. No bladder mass or filling defect. Incidental note of penile implant. PERITONEUM / RETROPERITONEUM: No free air or fluid. LYMPH NODES: Mesenteric calcified lymph node (series 2 image 46). Otherwise, no lymphadenopathy. VESSELS: Unremarkable. GI TRACT: No abnormal bowel thickening. No bowel obstruction. BONES AND SOFT TISSUES: No acute osseous injury. IMPRESSION: Rosales catheter terminates in the bladder with successful contrast opacification of the bladder on post contrast images. Signed by: Radha Alcala MD on 04/04/2020 3:42 PM
== END 2020-04-04 16:17 | disposition home or self-care (01) ==
LOC: ER 11:59
DX: R33.9 Retention of urine, unspecified (principal); N39.0 Urinary tract infection, site not specified; I10 Essential (primary) hypertension; F17.210 Nicotine dependence, cigarettes, uncomplicated
CPT/HCPCS: 51702; 74178; 81001; 87086; 99283; J0696; J2001; J7040; 51700

== ENCOUNTER → 2020-04-08 | Outpatient (CLI) | payer MEDICARE, OTHER ==
[~2020-04-08] MED LIST changes: +FENTANYL CITRATE/PF 100MCG/2 ML INJ ONE; +IOPAMIDOL 300MG/ML 100 ML INFUS..BTL IV ONE; +LIDOCAINE HCL 1% LOCAL INJ 20 ML VIAL ONE; +MIDAZOLAM HCL 2 MG/2 ML VIAL ONE; +SODIUM CHLORIDE 0.9% 250ML 250 ML ONE; +SODIUM CHLORIDE 0.9% 500ML 500 ML ONE
[2020-04-08 12:47] LABS: HEMOGLOBIN 11.2 g/dL (14.0-18.0)
[2020-04-08 13:09] LABS: INR 0.85; PROTHROMBIN TIME 12.1 seconds (11.9-14.5)
[2020-04-08 13:10] LABS: PARTIAL THROMBOPLASTIN TIME 26.3 seconds (23.8-35.5)
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
== END ==
LOC: US 12:22
PROVIDERS: ATTEND Urology
DX: Z01.812 Encounter for preprocedural laboratory examination (principal); Z20.828 Contact with and (suspected) exposure to other viral communicable diseases; R10.9 Unspecified abdominal pain; R30.0 Dysuria; R32 Unspecified urinary incontinence
CPT/HCPCS: 36415; 51102; 76942; 85014; 85049; 85610; 85730; J2001; J2250; J3010; J7040; J7050; Q9967; U0002; 99152; 99153

== ENCOUNTER 2020-05-15 16:13 | Emergency (ER) | payer MEDICARE ==
[~2020-05-15] VITALS: Ht 170.2 cm; Wt 90.7 kg
[~2020-05-15 16:13] MED LIST changes: -FENTANYL CITRATE/PF 100MCG/2 ML INJ ONE; -IOPAMIDOL 300MG/ML 100 ML INFUS..BTL IV ONE; -LIDOCAINE HCL 1% LOCAL INJ 20 ML VIAL ONE; -MIDAZOLAM HCL 2 MG/2 ML VIAL ONE; -SODIUM CHLORIDE 0.9% 250ML 250 ML ONE; -SODIUM CHLORIDE 0.9% 500ML 500 ML ONE
== END 2020-05-15 18:33 | disposition home or self-care (01) ==
LOC: ER 17:22
DX: Z46.6 Encounter for fitting and adjustment of urinary device (principal); I10 Essential (primary) hypertension; Z98.0 Intestinal bypass and anastomosis status
CPT/HCPCS: 99282

== ENCOUNTER → 2020-05-20 | Day surgery (SDC) | payer MEDICARE ==
[2020-05-18 12:20] LABS: BASOPHILS # (AUTO) 0.1 (0.0-0.1); BASOPHILS % 1.2 % (0.0-1.0); EOSINOPHILS # (AUTO) 0.2 (0.0-0.4); EOSINOPHILS % 3.6 % (0.0-6.0); HEMOGLOBIN 11.7 g/dL (14.0-18.0); LYMPHOCYTES # (AUTO) 1.8 (1.0-3.2); LYMPHOCYTES % 35.6 % (18.0-39.1); MEAN CORPUSCULAR HEMOGLOBIN 25.7 pg (28-32); MEAN CORPUSCULAR HGB CONC 30.8 g/dL (31-35); MEAN CORPUSCULAR VOLUME 83.3 fL (81-99); MONOCYTES # (AUTO) 0.5 (0.2-0.8); MONOCYTES % 9.5 % (4.4-11.3); NEUTROPHILS # (AUTO) 2.5 (2.1-6.9); NEUTROPHILS % 49.9 % (38.7-80.0); PLATELET COUNT 270 x10e3/uL (140-360); RED BLOOD COUNT 4.56 x10e6/uL (4.3-5.7); RED CELL DISTRIBUTION WIDTH 15.4 % (11.7-14.4)
[~2020-05-20] MED LIST changes: +B&O 60MG R/S 60 MG SUPP PR ONE; +CEFAZOLIN SOD 1 GM/NS 50ML 0 ML IV ONE; +DEXAMETHASONE SOD PHOS INJ 4 MG/ML VIAL ONE; +EPHEDRINE SULFATE INJ 50 MG/ML VIAL ONE; +GENTAMICIN 80MG/NS 100 ML 200 ML IV ONE; +IOPAMIDOL 300MG/ML 50ML INFUS..BTL IV ONE; +LIDOCAINE HCL 2% LOCAL INJ 5 ML SDV VIAL INJ ONE; +ONDANSETRON HCL INJ 2MG/ML 2ML 2 MG/ML VIAL ONE; +PROPOFOL IV EMULSION 10 MG/ML 20 ML VIAL ONE; +SEVOFLURANE INHAL SOLN 250 ML PEN BTL ONE
[2020-05-20 15:05] VITALS: BP 131/79
== END | disposition home or self-care (01) ==
LOC: OR 10:20
PROVIDERS: ATTEND Urology
DX: N99.512 Cystostomy malfunction (principal); N52.9 Male erectile dysfunction, unspecified; J45.909 Unspecified asthma, uncomplicated; I25.10 Atherosclerotic heart disease of native coronary artery without angina pectoris; I49.1 Atrial premature depolarization; Y83.8 Other surgical procedures as the cause of abnormal reaction of the patient, or of later complication, without mention of misadventure at the time of the procedure; Z88.6 Allergy status to analgesic agent; Z01.810 Encounter for preprocedural cardiovascular examination; Z01.812 Encounter for preprocedural laboratory examination; Z01.818 Encounter for other preprocedural examination; Z20.822 Contact with and (suspected) exposure to COVID-19; Z79.82 Long term (current) use of aspirin; Z87.81 Personal history of (healed) traumatic fracture
CPT/HCPCS: 36415; 71046; 74430; 85025; 93005; C1726; J0690; J1100; J1580; J2001; J2405; U0002

== ENCOUNTER → 2020-06-02 | Outpatient (CLI) | payer MEDICARE ==
[~2020-06-02] MED LIST changes: -B&O 60MG R/S 60 MG SUPP PR ONE; -CEFAZOLIN SOD 1 GM/NS 50ML 0 ML IV ONE; -DEXAMETHASONE SOD PHOS INJ 4 MG/ML VIAL ONE; -EPHEDRINE SULFATE INJ 50 MG/ML VIAL ONE; +FENTANYL CITRATE/PF 100MCG/2 ML INJ ONE; -GENTAMICIN 80MG/NS 100 ML 200 ML IV ONE; +IOPAMIDOL 300MG/ML 100 ML INFUS..BTL IV ONE; -IOPAMIDOL 300MG/ML 50ML INFUS..BTL IV ONE; +LIDOCAINE 2% /EPINEPHRINE 20 ML SDV INJ ONE; +LIDOCAINE HCL 1% LOCAL INJ 20 ML VIAL ONE; -LIDOCAINE HCL 2% LOCAL INJ 5 ML SDV VIAL INJ ONE; +MIDAZOLAM HCL 2 MG/2 ML VIAL ONE; -ONDANSETRON HCL INJ 2MG/ML 2ML 2 MG/ML VIAL ONE; -PROPOFOL IV EMULSION 10 MG/ML 20 ML VIAL ONE; -SEVOFLURANE INHAL SOLN 250 ML PEN BTL ONE; +SODIUM CHLORIDE 0.9% 250ML 250 ML ONE; +SODIUM CHLORIDE 0.9% 500ML 500 ML ONE
[2020-06-02 12:23] LABS: INR 0.89; PROTHROMBIN TIME 12.5 seconds (11.9-14.5)
[2020-06-02 12:24] LABS: PARTIAL THROMBOPLASTIN TIME 24.7 seconds (23.8-35.5)
== END ==
LOC: US 11:49
PROVIDERS: ATTEND Urology
DX: R33.9 Retention of urine, unspecified (principal)
CPT/HCPCS: 36415; 51102; 76942; 85014; 85049; 85610; 85730; J2001 ×2; J2250; J3010; J7040; J7050; Q9967; U0002; 99152; 99153; C1769

== ENCOUNTER 2022-09-28 19:52 | Observation (INO) | payer MEDICARE ==
[~2022-09-28] VITALS: Ht 170.2 cm; Wt 62.1 kg
[~2022-09-28 19:52] MED LIST changes: -FENTANYL CITRATE/PF 100MCG/2 ML INJ ONE; -IOPAMIDOL 300MG/ML 100 ML INFUS..BTL IV ONE; -LIDOCAINE 2% /EPINEPHRINE 20 ML SDV INJ ONE; -LIDOCAINE HCL 1% LOCAL INJ 20 ML VIAL ONE; -MIDAZOLAM HCL 2 MG/2 ML VIAL ONE; -SODIUM CHLORIDE 0.9% 250ML 250 ML ONE; -SODIUM CHLORIDE 0.9% 500ML 500 ML ONE
[2022-09-28] MEDS ORDERED: ONDANSETRON HCL INJ 2MG/ML 2ML 2 MG/ML VIAL IV STA (20:14)
[2022-09-28] MEDS ORDERED: FUROSEMIDE INJ 10 MG/ML 4 ML VIAL IV ONE (20:15)
[2022-09-28] MEDS ORDERED: Morphine 4mg INJECTION 4 MG/ML INJ IV ONE (20:15)
[2022-09-28] MEDS ORDERED: DIPHENHYDRAMINE HCL 25 MG CAP PO ONE (20:15)
[2022-09-28 20:32] LABS: BASOPHILS # (AUTO) 0.1 (0.0-0.1); BASOPHILS % 1.1 % (0.0-1.0); EOSINOPHILS # (AUTO) 0.3 (0.0-0.4); EOSINOPHILS % 3.9 % (0.0-6.0); HEMATOCRIT 32.7 % (38.2-49.6); HEMOGLOBIN 10.7 g/dL (14.0-18.0); LYMPHOCYTES % 26.3 % (18.0-39.1); MEAN CORPUSCULAR HEMOGLOBIN 30.4 pg (28-32); MEAN CORPUSCULAR HGB CONC 32.7 g/dL (31-35); MEAN CORPUSCULAR VOLUME 92.9 fL (81-99); MONOCYTES # (AUTO) 0.7 (0.2-0.8); MONOCYTES % 9.5 % (4.4-11.3); NEUTROPHILS # (AUTO) 4.4 (2.1-6.9); NEUTROPHILS % 58.8 % (38.7-80.0); PLATELET COUNT 296 x10e3/uL (140-360); RED BLOOD COUNT 3.52 x10e6/uL (4.3-5.7)
[2022-09-28 20:49] LABS: ALBUMIN 2.5 g/dL (3.5-5.0); ALBUMIN/GLOBULIN RATIO 0.9 (0.8-2.0); ANION GAP 10.3 mmol/L (8-16); CALCIUM 8.2 mg/dL (8.4-10.2); CREATININE, SERUM 0.7 mg/dL (0.72-1.25); POTASSIUM 4.3 mmol/L (3.5-5.1)
[2022-09-28 20:59] LABS: CLARITY,URINE SL CLOUDY (CLEAR); COLOR,URINE YELLOW (YELLOW); KETONES,URINE NEGATIVE (NEGATIVE); LEUKOCYTE ESTERASE ,URINE NEGATIVE (NEGATIVE); NITRITE,URINE NEGATIVE (NEGATIVE); PROTEIN,URINE DIPSTICK NEGATIVE (NEGATIVE); URINE UROBILINOGEN 0.2 mg/dL (0.2 - 1)
[2022-09-28 21:09] LABS: BACTERIA,URINE FEW /HPF; WBC,URINE (MAN) 0-5 /HPF (0-5)
[2022-09-28] MEDS ORDERED: KETOROLAC TROMETHAMINE 30 MG/ML VIAL IV STA (21:48)
[2022-09-28] MEDS ORDERED: SODIUM CHLORIDE FLUSH 10 ML SYR INJ PRN (22:45)
[2022-09-28] MEDS ORDERED: ONDANSETRON HCL INJ 2MG/ML 2ML 2 MG/ML VIAL IV PRN (22:45)
[2022-09-28 23:35] VITALS: BP 121/90; PULSE 79; RESP 16; TEMP 97.5; O2SAT 99
[2022-09-29 00:49] VITALS: BP 121/90; PULSE 79; RESP 16; TEMP 97.5; O2SAT 99
[2022-09-29] MEDS ORDERED: FAMOTIDINE20 MG PO (01:03)
[2022-09-29] MEDS ORDERED: BUSPIRONE HCL10 MG PO (01:04)
[2022-09-29] MEDS ORDERED: MIDODRINE HCL5 MG PO (01:04)
[2022-09-29] MEDS ORDERED: TIZANIDINE HCL4 M1 PO (01:05)
[2022-09-29] MEDS ORDERED: OXYBUTYNIN CHLOR5 MG PO (01:06)
[2022-09-29] MEDS ORDERED: FEROSUL325 MG PO (01:07)
[2022-09-29] MEDS ORDERED: CYMBALTA30 MG PO (01:08)
[2022-09-29] MEDS ORDERED: MIRTAZAPINE15 MG PO (01:09)
[2022-09-29] MEDS ORDERED: POTASSIUM CHLO10 ME1 PO (01:10)
[2022-09-29] MEDS ORDERED: FLUOXETINE HCL20 MG PO (01:11)
[2022-09-29] MEDS ORDERED: DICYCLOMINE HCL10 MG PO (01:11)
[2022-09-29] MEDS ORDERED: METOCLOPRAMIDE10 MG PO (01:13)
[2022-09-29] MEDS ORDERED: MAG-OXIDE400 MG PO (01:50)
[2022-09-29] MEDS ORDERED: TRAZODONE HCL50 MG PO (01:51)
[2022-09-29] MEDS: HYDROCODONE/APAP 5MG-325MG TAB PO PRN ×3 (03:35→15:43)
[2022-09-29 04:23] VITALS: BP 119/69; PULSE 76; RESP 17; TEMP 97.8; O2SAT 98
[2022-09-29 05:02] LABS: BASOPHILS # (AUTO) 0.1 (0.0-0.1); BASOPHILS % 1.2 % (0.0-1.0); EOSINOPHILS # (AUTO) 0.3 (0.0-0.4); EOSINOPHILS % 6.8 % (0.0-6.0); HEMATOCRIT 30.3 % (38.2-49.6); HEMOGLOBIN 9.8 g/dL (14.0-18.0); LYMPHOCYTES # (AUTO) 1.7 (1.0-3.2); LYMPHOCYTES % 33.2 % (18.0-39.1); MEAN CORPUSCULAR HEMOGLOBIN 30.7 pg (28-32); MEAN CORPUSCULAR HGB CONC 32.3 g/dL (31-35); MONOCYTES # (AUTO) 0.5 (0.2-0.8); MONOCYTES % 10.1 % (4.4-11.3); NEUTROPHILS # (AUTO) 2.4 (2.1-6.9); NEUTROPHILS % 48.3 % (38.7-80.0); PLATELET COUNT 240 x10e3/uL (140-360); RED BLOOD COUNT 3.19 x10e6/uL (4.3-5.7); RED CELL DISTRIBUTION WIDTH 15.7 % (11.7-14.4)
[2022-09-29 05:23] LABS: ALBUMIN 2.2 g/dL (3.5-5.0); ALBUMIN/GLOBULIN RATIO 0.9 (0.8-2.0); ANION GAP 8.9 mmol/L (8-16); CALCIUM 8.1 mg/dL (8.4-10.2); CREATININE, SERUM 0.72 mg/dL (0.72-1.25); POTASSIUM 3.9 mmol/L (3.5-5.1)
[2022-09-29 08:00] VITALS: BP 114/78; PULSE 62; PULSE 67; RESP 18; TEMP 97.7; O2SAT 98
[2022-09-29] MEDS ORDERED: BENZONATATE 100 MG CAP PO PRN (09:00)
[2022-09-29] MEDS ORDERED: ACETAMINOPHEN 325 MG TAB PO PRN (09:00)
[2022-09-29] MEDS ORDERED: DIPHENHYDRAMINE HCL 25 MG CAP PO PRN (09:00)
[2022-09-29] MEDS ORDERED: POTASSIUM CHLORIDE 20 MEQ TAB CR PO PRN (09:00)
[2022-09-29] MEDS ORDERED: SIMETHICONE 80 MG CHEW PO PRN (09:00)
[2022-09-29] MEDS ORDERED: LIDOCAINE 4% PATCH TP PRN (09:00)
[2022-09-29] MEDS ORDERED: ALBUTEROL/IPRATROPIUM 3 ML NEB NEB PRN (09:00)
[2022-09-29] MEDS ORDERED: DOCUSATE SODIUM 100 MG CAP PO PRN (09:00)
[2022-09-29] MEDS ORDERED: DEXTROSE 50% SYRINGE 50 ML IV PRN (09:00)
[2022-09-29] MEDS ORDERED: HYDRALAZINE HCL 20 MG/ML VIAL IV PRN (09:00)
[2022-09-29] MEDS: GABAPENTIN 300 MG CAP PO SCH ×3 (10:07→21:13)
[2022-09-29] MEDS: MIRTAZAPINE 15 MG TAB PO SCH (10:07)
[2022-09-29] MEDS: DULOXETINE HCL 30 MG DELAYED RELEASE PO SCH ×2 (10:07→17:57)
[2022-09-29] MEDS: OXYBUTYNIN CHLORIDE 5 MG TAB PO SCH (10:07)
[2022-09-29] MEDS: BUSPIRONE HCL 10 MG TABLET PO SCH ×3 (10:07→21:13)
[2022-09-29] MEDS: PANTOPRAZOLE SOD 40 MG TABEC PO SCH (11:18)
[2022-09-29] MEDS: DICYCLOMINE HCL 10 MG CAP PO SCH ×2 (11:19→17:57)
[2022-09-29] MEDS: KETOROLAC TROMETHAMINE 30 MG/ML VIAL IV PRN ×2 (13:58→19:39)
[2022-09-29] MEDS ORDERED: ENOXAPARIN SOD INJ 40 MG/0.4 ML SYR SC SCH (17:00)
[2022-09-29 17:15] VITALS: BP 116/80; PULSE 75; RESP 20; TEMP 98.1; O2SAT 99
[2022-09-29 20:00] VITALS: BP 110/79; PULSE 73; RESP 18; TEMP 98; O2SAT 97
[2022-09-29 21:00] VITALS: BP 110/79; PULSE 73; RESP 18; TEMP 98; O2SAT 97
[2022-09-29] MEDS ORDERED: MELATONIN 5 MG TABLET PO PRN (21:00)
[2022-09-29] MEDS ORDERED: ATORVASTATIN 20 MG TAB PO SCH (21:00)
[2022-09-30] MEDS: KETOROLAC TROMETHAMINE 30 MG/ML VIAL IV PRN ×2 (02:24→09:51)
[2022-09-30 04:00] VITALS: BP 115/82; PULSE 77; RESP 17; TEMP 98.5; O2SAT 98
[2022-09-30 05:09] LABS: BASOPHILS # (AUTO) 0.1 (0.0-0.1); BASOPHILS % 1.3 % (0.0-1.0); EOSINOPHILS # (AUTO) 0.3 (0.0-0.4); EOSINOPHILS % 6.1 % (0.0-6.0); HEMATOCRIT 30.7 % (38.2-49.6); LYMPHOCYTES # (AUTO) 1.5 (1.0-3.2); LYMPHOCYTES % 26.8 % (18.0-39.1); MEAN CORPUSCULAR HEMOGLOBIN 30.3 pg (28-32); MEAN CORPUSCULAR HGB CONC 32.6 g/dL (31-35); MONOCYTES # (AUTO) 0.5 (0.2-0.8); MONOCYTES % 9.2 % (4.4-11.3); NEUTROPHILS # (AUTO) 3.1 (2.1-6.9); NEUTROPHILS % 56.2 % (38.7-80.0); PLATELET COUNT 206 x10e3/uL (140-360); RED CELL DISTRIBUTION WIDTH 15.5 % (11.7-14.4)
[2022-09-30 05:45] LABS: ANION GAP 11.4 mmol/L (8-16); CALCIUM 7.9 mg/dL (8.4-10.2); CREATININE, SERUM 0.69 mg/dL (0.72-1.25); POTASSIUM 4.4 mmol/L (3.5-5.1)
[2022-09-30] MEDS: OXYBUTYNIN CHLORIDE 5 MG TAB PO SCH (05:47)
[2022-09-30] MEDS: HYDROCODONE/APAP 5MG-325MG TAB PO PRN (05:48)
[2022-09-30] MEDS: DICYCLOMINE HCL 10 MG CAP PO SCH (08:03)
[2022-09-30] MEDS: PANTOPRAZOLE SOD 40 MG TABEC PO SCH (08:03)
[2022-09-30 08:55] VITALS: BP 125/81; PULSE 63; RESP 18; TEMP 97.7; O2SAT 99
[2022-09-30] MEDS: GABAPENTIN 300 MG CAP PO SCH (09:48)
[2022-09-30] MEDS: BUSPIRONE HCL 10 MG TABLET PO SCH (09:48)
[2022-09-30] MEDS: MIRTAZAPINE 15 MG TAB PO SCH (09:48)
[2022-09-30] MEDS: DULOXETINE HCL 30 MG DELAYED RELEASE PO SCH (09:48)
== END 2022-09-30 12:40 | disposition home or self-care (01) ==
LOC: ER 19:55 → ERHOLD 22:41 → MED/SURG 23:05
PROVIDERS: ADMIT Internal Medicine; ATTEND Internal Medicine
DX: N50.819 Testicular pain, unspecified (principal); R33.9 Retention of urine, unspecified; N50.89 Other specified disorders of the male genital organs; I10 Essential (primary) hypertension; E78.5 Hyperlipidemia, unspecified; Z96.89 Presence of other specified functional implants; N50.3 Cyst of epididymis; F41.9 Anxiety disorder, unspecified; F32.A Depression, unspecified; Z20.822 Contact with and (suspected) exposure to COVID-19; Z88.6 Allergy status to analgesic agent; Z79.899 Other long term (current) drug therapy
CPT/HCPCS: 0223U; 36415 ×3; 51702; 76870; 80048; 80053 ×2; 81001; 85025 ×3; 87086; 93976; 94799; 99284; G0378 ×3; J1650; J1885 ×3; J1940; J2270; J2405; S0164 ×2; 51700

== ENCOUNTER 2023-05-06 23:39 | Inpatient (IN) | payer MEDICARE ==
[~2023-05-06] VITALS: Ht 170.2 cm; Wt 54.4 kg
[~2023-05-06 23:39] MED LIST changes: +BUSPIRONE HCL10 MG PO; +CYMBALTA30 MG PO; +DICYCLOMINE HCL10 MG PO; +DICYCLOMINE HCL20 MG PO; +FAMOTIDINE20 MG PO; +FEROSUL325 MG PO; +FLUOXETINE HCL20 MG PO; +MAG-OXIDE400 MG PO; +METOCLOPRAMIDE10 MG PO; +MIDODRINE HCL5 MG PO; +MIRTAZAPINE15 MG PO; +OXYBUTYNIN CHLOR5 MG PO; +POTASSIUM CHLO10 ME1 PO; +QUESTRAN PACKET4 GM PO; +TIZANIDINE HCL4 M1 PO; +TRAZODONE HCL50 MG PO
[2023-05-06] MEDS ORDERED: ONDANSETRON HCL INJ 2MG/ML 2ML 2 MG/ML VIAL IV STA (23:53)
[2023-05-07] VITALS (9 sets, daily range): BP systolic 95–124; BP diastolic 64–76; PULSE 58–78; RESP 16–20; TEMP 97.6–98.6; O2SAT 96–100
[2023-05-07] MEDS ORDERED: SODIUM CHLORIDE 0.9% 1000ML 1,000 ML IV ONE
[2023-05-07] MEDS ORDERED: FENTANYL CITRATE/PF 100MCG/2 ML INJ ONE (00:11)
[2023-05-07] MEDS ORDERED: FENTANYL CITRATE/PF 100MCG/2 ML INJ IV ONE (00:15)
[2023-05-07 00:25] LABS: BASOPHILS % 0.5 % (0.0-1.0); EOSINOPHILS # (AUTO) 0.1 (0.0-0.4); EOSINOPHILS % 0.8 % (0.0-6.0); HEMATOCRIT 38.4 % (38.2-49.6); LYMPHOCYTES # (AUTO) 3.4 (1.0-3.2); LYMPHOCYTES % 38.7 % (18.0-39.1); MEAN CORPUSCULAR HEMOGLOBIN 31.3 pg (28-32); MEAN CORPUSCULAR HGB CONC 33.9 g/dL (31-35); MEAN CORPUSCULAR VOLUME 92.3 fL (81-99); MONOCYTES # (AUTO) 0.6 (0.2-0.8); MONOCYTES % 6.7 % (4.4-11.3); NEUTROPHILS # (AUTO) 4.6 (2.1-6.9); NEUTROPHILS % 53.1 % (38.7-80.0); PLATELET COUNT 236 x10e3/uL (140-360); RED BLOOD COUNT 4.16 x10e6/uL (4.3-5.7); RED CELL DISTRIBUTION WIDTH 15.9 % (11.7-14.4); WHITE BLOOD COUNT 8.69 x10e3/uL (4.8-10.8)
[2023-05-07 00:40] LABS: ALBUMIN 2.7 g/dL (3.5-5.0); ALBUMIN/GLOBULIN RATIO 0.8 (0.8-2.0); ANION GAP 12.2 mmol/L (8-16); BILIRUBIN,TOTAL 0.7 mg/dL (0.2-1.2); CREATININE, SERUM 0.78 mg/dL (0.72-1.25); TOTAL PROTEIN 6.2 g/dL (6.5-8.1)
[2023-05-07 00:41] LABS: CALCIUM 8.1 mg/dL (8.4-10.2); POTASSIUM 3.2 mmol/L (3.5-5.1)
[2023-05-07 00:44] LABS: CLARITY,URINE CLOUDY (CLEAR); COLOR,URINE ORANGE (YELLOW); MUCUS,URINE MANY (RARE)
[2023-05-07 00:46] LABS: LEUKOCYTE ESTERASE ,URINE TRACE (NEGATIVE); PH,URINE 6 (5 - 7)
[2023-05-07 00:47] LABS: BILIRUBIN,URINE NEGATIVE (NEGATIVE); GLUCOSE, URINE NEGATIVE (NEGATIVE); KETONES,URINE TRACE (NEGATIVE); NITRITE,URINE POSITIVE (NEGATIVE); PROTEIN,URINE DIPSTICK 1+ (NEGATIVE); URINE UROBILINOGEN 0.2 mg/dL (0.2 - 1)
[2023-05-07 00:51] LABS: BACTERIA,URINE MANY /HPF; EPITHELIAL CELLS,URINE FEW /LPF; WBC,URINE (MAN) >50 /HPF (0-5)
[2023-05-07 00:52] LABS: TRANSITIONAL EPI CELLS,URINE FEW
[2023-05-07 01:01] LABS: TROPONIN I 0.005 ng/mL (0-0.300)
[2023-05-07] MEDS ORDERED: HYDROCODONE/APAP 5MG-325MG TAB PO PRN (02:15)
[2023-05-07] MEDS: SODIUM CHLORIDE 0.9% 1000ML 1,000 ML IV SCH ×2 (02:25→09:30)
[2023-05-07] MEDS: CEFTRIAXONE 2 GM in SODIUM CHLORIDE 0.9% 100 ML IV SCH ×2 (02:25→09:29)
[2023-05-07] MEDS ORDERED: IOPAMIDOL 370 MG/ML 100 ML INFUS..BTL INJ ONE (02:57)
[2023-05-07] MEDS ORDERED: ONDANSETRON HCL INJ 2MG/ML 2ML 2 MG/ML VIAL IV PRN (04:00)
[2023-05-07] MEDS ORDERED: ONDANSETRON HCL 4 MG ORAL DISINTEGRATING TAB PO PRN (10:00)
[2023-05-07] MEDS: HYDROCODONE/APAP 10MG-325MG TAB PO PRN ×3 (10:33→23:17)
[2023-05-07] MEDS ORDERED: PANTOPRAZOLE SOD 40 MG TABEC PO SCH (11:00)
[2023-05-07] MEDS: POTASSIUM CHLORIDE 10MEQ EA PO SCH ×2 (13:00→13:25)
[2023-05-07] MEDS: CHOLESTYRAMINE 4 GM PACKET PO SCH ×3 (13:24→23:17)
[2023-05-07] MEDS: DICYCLOMINE HCL 20 MG TAB PO SCH ×2 (13:25→17:59)
[2023-05-07] MEDS: METOCLOPRAMIDE HCL 10 MG TAB PO SCH ×2 (13:25→17:59)
[2023-05-07] MEDS: CIPROFLOXACIN 500 MG TAB PO SCH ×2 (13:25→17:59)
[2023-05-07] MEDS: GABAPENTIN 300 MG CAP PO SCH ×2 (15:28→20:41)
[2023-05-07] MEDS: TIZANIDINE HCL 4 MG TAB PO SCH ×2 (15:28→20:42)
[2023-05-07] MEDS: BUSPIRONE HCL 10 MG TABLET PO SCH ×2 (15:28→20:42)
[2023-05-07] MEDS ORDERED: POTASSIUM CHLORIDE 10MEQ EA PO SCH (15:45)
[2023-05-07] MEDS ORDERED: FAMOTIDINE 20 MG TAB PO SCH (17:00)
[2023-05-07] MEDS: DULOXETINE HCL 30 MG DELAYED RELEASE PO SCH (17:59)
[2023-05-07] MEDS: MAGNESIUM OXIDE 400 MG TAB PO SCH (17:59)
[2023-05-07] MEDS: TRAZODONE HCL 50 MG TAB PO SCH (20:42)
[2023-05-07] MEDS: MIRTAZAPINE 15 MG TAB PO SCH (20:42)
[2023-05-08] VITALS (9 sets, daily range): BP systolic 67–100; BP diastolic 42–68; PULSE 53–62; RESP 17–22; TEMP 96.6–98.1; O2SAT 94–100
[2023-05-08] MEDS ORDERED: SODIUM CHLORIDE 0.9% 1000ML 1,000 ML IV ONE (00:15)
[2023-05-08] MEDS: MIDODRINE 2.5 MG TAB PO SCH ×4 (00:31→20:43)
[2023-05-08] MEDS: CHOLESTYRAMINE 4 GM PACKET PO SCH (06:00)
[2023-05-08 06:11] LABS: ALBUMIN 1.6 g/dL (3.5-5.0); ALBUMIN/GLOBULIN RATIO 0.9 (0.8-2.0); ANION GAP 7.2 mmol/L (8-16); BILIRUBIN,TOTAL 0.3 mg/dL (0.2-1.2); CREATININE, SERUM 0.73 mg/dL (0.72-1.25); TOTAL PROTEIN 3.3 g/dL (6.5-8.1)
[2023-05-08 06:19] LABS: POTASSIUM 3.2 mmol/L (3.5-5.1)
[2023-05-08 06:32] LABS: BASOPHILS % 0.6 % (0.0-1.0); EOSINOPHILS # (AUTO) 0.1 (0.0-0.4); EOSINOPHILS % 1.2 % (0.0-6.0); HEMATOCRIT 25.3 % (38.2-49.6); LYMPHOCYTES # (AUTO) 1.8 (1.0-3.2); LYMPHOCYTES % 35.5 % (18.0-39.1); MEAN CORPUSCULAR HEMOGLOBIN 31.6 pg (28-32); MEAN CORPUSCULAR HGB CONC 33.2 g/dL (31-35); MEAN CORPUSCULAR VOLUME 95.1 fL (81-99); MONOCYTES # (AUTO) 0.5 (0.2-0.8); NEUTROPHILS # (AUTO) 2.7 (2.1-6.9); NEUTROPHILS % 53.5 % (38.7-80.0); RED BLOOD COUNT 2.66 x10e6/uL (4.3-5.7); RED CELL DISTRIBUTION WIDTH 16.7 % (11.7-14.4); WHITE BLOOD COUNT 4.98 x10e3/uL (4.8-10.8)
[2023-05-08 06:33] LABS: HEMOGLOBIN 8.4 g/dL (14.0-18.0); PLATELET COUNT 138 x10e3/uL (140-360)
[2023-05-08] MEDS ORDERED: SODIUM CHLORIDE 0.9% 250ML 250 ML IV ONE (08:00)
[2023-05-08] MEDS ORDERED: DEXAMETHASONE SOD PHOS 10 MG/1 ML VIAL IV ONE (08:00)
[2023-05-08] MEDS: MAGNESIUM OXIDE 400 MG TAB PO SCH ×2 (09:00→20:45)
[2023-05-08] MEDS: SODIUM CHLORIDE 0.9% 1000ML 1,000 ML IV SCH ×2 (11:49→18:30)
[2023-05-08] MEDS ORDERED: SODIUM CHLORIDE 0.9% 100 ML ONE (12:05)
[2023-05-08] MEDS ORDERED: IOPAMIDOL 370 MG/ML 100 ML INFUS..BTL INJ ONE (12:05)
[2023-05-08] MEDS: METRONIDAZOLE 500MG/NS 100ML 100 ML IV SCH ×3 (12:45→23:47)
[2023-05-08] MEDS: HYDROCODONE/APAP 10MG-325MG TAB PO PRN ×2 (12:50→21:47)
[2023-05-08] MEDS: OXYBUTYNIN CHLORIDE 5 MG TAB PO SCH (13:35)
[2023-05-08] MEDS: DULOXETINE HCL 30 MG DELAYED RELEASE PO SCH ×2 (13:35→20:44)
[2023-05-08] MEDS: FLUOXETINE HCL 20 MG CAP PO SCH (13:35)
[2023-05-08] MEDS: METOCLOPRAMIDE HCL 10 MG/2ML VIAL IV SCH ×3 (13:35→23:48)
[2023-05-08] MEDS: BUSPIRONE HCL 10 MG TABLET PO SCH ×3 (13:35→20:43)
[2023-05-08] MEDS: GABAPENTIN 300 MG CAP PO SCH ×3 (13:35→20:44)
[2023-05-08] MEDS: TIZANIDINE HCL 4 MG TAB PO SCH ×3 (13:36→20:44)
[2023-05-08] MEDS: FUROSEMIDE INJ 10 MG/ML 2 ML VIAL IV PRN ×2 (18:27→23:48)
[2023-05-08] MEDS ORDERED: PEG (High)/E-LYTE SOLN 4,000 ML BTL PO ONE (18:50)
[2023-05-08] MEDS ORDERED: BISACODYL 5 MG TAB EC PO ONE (18:50)
[2023-05-08] MEDS: MIRTAZAPINE 15 MG TAB PO SCH (20:43)
[2023-05-08] MEDS: TRAZODONE HCL 50 MG TAB PO SCH (20:44)
[2023-05-09] VITALS (7 sets, daily range): BP systolic 67–133; BP diastolic 46–88; PULSE 51–102; RESP 18–19; TEMP 97.6–98.3; O2SAT 95–100
[2023-05-09] MEDS: HYDROCODONE/APAP 10MG-325MG TAB PO PRN ×2 (04:21→23:28)
[2023-05-09] MEDS: MIDODRINE 2.5 MG TAB PO SCH ×3 (05:52→22:20)
[2023-05-09] MEDS: METOCLOPRAMIDE HCL 10 MG/2ML VIAL IV SCH ×4 (05:52→23:28)
[2023-05-09 06:36] LABS: BASOPHILS % 0.4 % (0.0-1.0); HEMATOCRIT 34.6 % (38.2-49.6); HEMOGLOBIN 12.2 g/dL (14.0-18.0); LYMPHOCYTES # (AUTO) 0.3 (1.0-3.2); LYMPHOCYTES % 10.5 % (18.0-39.1); MEAN CORPUSCULAR HGB CONC 35.3 g/dL (31-35); MONOCYTES % 0.4 % (4.4-11.3); NEUTROPHILS # (AUTO) 2.3 (2.1-6.9); NEUTROPHILS % 87.6 % (38.7-80.0); PLATELET COUNT 106 x10e3/uL (140-360); RED BLOOD COUNT 3.93 x10e6/uL (4.3-5.7); RED CELL DISTRIBUTION WIDTH 15.7 % (11.7-14.4); WHITE BLOOD COUNT 2.66 x10e3/uL (4.8-10.8)
[2023-05-09 07:12] LABS: ANION GAP 11.7 mmol/L (8-16); CREATININE, SERUM 0.56 mg/dL (0.72-1.25)
[2023-05-09 07:17] LABS: CALCIUM 6.6 mg/dL (8.4-10.2)
[2023-05-09 07:18] LABS: POTASSIUM 2.7 mmol/L (3.5-5.1)
[2023-05-09] MEDS: BUSPIRONE HCL 10 MG TABLET PO SCH ×3 (09:00→22:20)
[2023-05-09] MEDS: DULOXETINE HCL 30 MG DELAYED RELEASE PO SCH ×2 (09:00→22:21)
[2023-05-09] MEDS: OXYBUTYNIN CHLORIDE 5 MG TAB PO SCH (09:00)
[2023-05-09] MEDS: MAGNESIUM OXIDE 400 MG TAB PO SCH ×2 (09:00→22:21)
[2023-05-09] MEDS ORDERED: POTASSIUM CHLORIDE 20MEQ/100ML 100 ML IV ONE (09:00)
[2023-05-09] MEDS: GABAPENTIN 300 MG CAP PO SCH ×3 (09:00→22:20)
[2023-05-09] MEDS: FLUOXETINE HCL 20 MG CAP PO SCH (09:00)
[2023-05-09] MEDS: TIZANIDINE HCL 4 MG TAB PO SCH ×3 (09:00→22:21)
[2023-05-09] MEDS: METRONIDAZOLE 500MG/NS 100ML 100 ML IV SCH ×3 (09:51→23:29)
[2023-05-09] MEDS: KCL 40MEQ/0.9% SOD CHL 1,000 ML IV SCH ×2 (09:59→22:15)
[2023-05-09] MEDS ORDERED: CALCIUM GLUC 1 G/50 ML NACL 50 ML IV ONE (10:00)
[2023-05-09 10:46] LABS: LYMPHOCYTES % (MANUAL) 5 % (19-48); NEUTROPHILS % (MANUAL) 95 % (40-74); NUCLEATED RED BLOOD CELLS 2; PLATELET ESTIMATE SLIGHTLY DECREASED; PLATELET MORPHOLOGY COMMENT NORMAL; POLYCHROMASIA FEW; RBC MORPHOLOGY COMMENT NORMAL
[2023-05-09] MEDS: MUPIROCIN 2% OINT 22 GM TUBE TOP SCH ×2 (11:20→17:24)
[2023-05-09] MEDS ORDERED: FENTANYL CITRATE/PF 100MCG/2 ML INJ ONE (12:06)
[2023-05-09] MEDS ORDERED: LIDOCAINE HCL 2% LOCAL INJ 5 ML SDV VIAL INJ ONE (12:16)
[2023-05-09] MEDS ORDERED: PROPOFOL IV EMULSION 10 MG/ML 20 ML VIAL ONE (12:16)
[2023-05-09] MEDS ORDERED: EPHEDRINE SULFATE INJ 50 MG/ML VIAL ONE (12:16)
[2023-05-09] MEDS: MIRTAZAPINE 15 MG TAB PO SCH (22:20)
[2023-05-09] MEDS: TRAZODONE HCL 50 MG TAB PO SCH (22:21)
[2023-05-10] VITALS (8 sets, daily range): BP systolic 69–101; BP diastolic 47–71; PULSE 50–80; RESP 17–18; TEMP 97.6–98.2; O2SAT 97–98
[2023-05-10] MEDS: MIDODRINE 2.5 MG TAB PO SCH ×3 (05:07→21:54)
[2023-05-10] MEDS: METOCLOPRAMIDE HCL 10 MG/2ML VIAL IV SCH ×3 (05:08→17:07)
[2023-05-10] MEDS: KCL 40MEQ/0.9% SOD CHL 1,000 ML IV SCH (05:11)
[2023-05-10 06:24] LABS: BASOPHILS % 0.4 % (0.0-1.0); EOSINOPHILS % 0.8 % (0.0-6.0); HEMATOCRIT 30.6 % (38.2-49.6); HEMOGLOBIN 10.3 g/dL (14.0-18.0); LYMPHOCYTES # (AUTO) 1.3 (1.0-3.2); LYMPHOCYTES % 24.9 % (18.0-39.1); MEAN CORPUSCULAR HEMOGLOBIN 31.3 pg (28-32); MEAN CORPUSCULAR HGB CONC 33.7 g/dL (31-35); MONOCYTES # (AUTO) 0.5 (0.2-0.8); MONOCYTES % 10.6 % (4.4-11.3); NEUTROPHILS # (AUTO) 3.2 (2.1-6.9); NEUTROPHILS % 63.1 % (38.7-80.0); PLATELET COUNT 94 x10e3/uL (140-360); RED BLOOD COUNT 3.29 x10e6/uL (4.3-5.7); RED CELL DISTRIBUTION WIDTH 17.3 % (11.7-14.4); WHITE BLOOD COUNT 5.02 x10e3/uL (4.8-10.8)
[2023-05-10 06:48] LABS: ANION GAP 9.3 mmol/L (8-16); CREATININE, SERUM 0.64 mg/dL (0.72-1.25); MAGNESIUM 1.3 MG/DL (1.3-2.1); PHOSPHORUS 2.6 MG/DL (2.3-4.7)
[2023-05-10 06:54] LABS: POTASSIUM 3.3 mmol/L (3.5-5.1)
[2023-05-10 06:57] LABS: CALCIUM 6.8 mg/dL (8.4-10.2)
[2023-05-10] MEDS: METRONIDAZOLE 500MG/NS 100ML 100 ML IV SCH ×2 (09:12→17:06)
[2023-05-10] MEDS: GABAPENTIN 300 MG CAP PO SCH ×3 (09:13→20:10)
[2023-05-10] MEDS: FLUOXETINE HCL 20 MG CAP PO SCH (09:13)
[2023-05-10] MEDS: BUSPIRONE HCL 10 MG TABLET PO SCH ×3 (09:13→20:08)
[2023-05-10] MEDS: DULOXETINE HCL 30 MG DELAYED RELEASE PO SCH ×2 (09:13→20:08)
[2023-05-10] MEDS: TIZANIDINE HCL 4 MG TAB PO SCH ×3 (09:13→20:09)
[2023-05-10] MEDS: OXYBUTYNIN CHLORIDE 5 MG TAB PO SCH (09:13)
[2023-05-10] MEDS: MAGNESIUM OXIDE 400 MG TAB PO SCH ×2 (09:14→20:09)
[2023-05-10] MEDS ORDERED: CALCIUM GLUC 1 G/50 ML NACL 50 ML IV ONE (10:00)
[2023-05-10] MEDS: CYANOCOBALAMIN INJ 1,000 MCG/ML VIAL IM SCH (10:30)
[2023-05-10] MEDS: MUPIROCIN 2% OINT 22 GM TUBE TOP SCH ×2 (10:30→17:06)
[2023-05-10] MEDS ORDERED: MAGNESIUM SULFATE 2GM/50ML 50 ML IV ONE (11:00)
[2023-05-10] MEDS ORDERED: POTASSIUM PHOSPHATE 30 MM in SODIUM CHLORIDE 0.9% 250ML 250 ML IV ONE (13:00)
[2023-05-10] MEDS: HYDROCODONE/APAP 10MG-325MG TAB PO PRN ×2 (14:27→20:09)
[2023-05-10] MEDS: TRAZODONE HCL 50 MG TAB PO SCH (20:08)
[2023-05-10] MEDS: MIRTAZAPINE 15 MG TAB PO SCH (20:09)
[2023-05-11] VITALS (9 sets, daily range): BP systolic 95–167; BP diastolic 59–73; PULSE 52–90; RESP 16–20; TEMP 97.5–98.4; O2SAT 95–100
[2023-05-11] MEDS: METOCLOPRAMIDE HCL 10 MG/2ML VIAL IV SCH ×5 (00:01→23:38)
[2023-05-11] MEDS: METRONIDAZOLE 500MG/NS 100ML 100 ML IV SCH ×4 (00:02→23:39)
[2023-05-11] MEDS: KCL 40MEQ/0.9% SOD CHL 1,000 ML IV SCH ×3 (02:00→11:53)
[2023-05-11] MEDS: HYDROCODONE/APAP 10MG-325MG TAB PO PRN ×3 (04:37→21:24)
[2023-05-11] MEDS: MIDODRINE 2.5 MG TAB PO SCH ×3 (05:31→21:19)
[2023-05-11 08:00] LABS: MAGNESIUM 1.6 MG/DL (1.3-2.1); PHOSPHORUS 2.6 MG/DL (2.3-4.7)
[2023-05-11 08:01] LABS: ANION GAP 7.3 mmol/L (8-16); CREATININE, SERUM 0.56 mg/dL (0.72-1.25); POTASSIUM 4.3 mmol/L (3.5-5.1)
[2023-05-11 08:06] LABS: CALCIUM 6.9 mg/dL (8.4-10.2)
[2023-05-11] MEDS: GABAPENTIN 300 MG CAP PO SCH ×3 (08:18→21:16)
[2023-05-11] MEDS: DULOXETINE HCL 30 MG DELAYED RELEASE PO SCH ×2 (08:18→21:16)
[2023-05-11] MEDS: MAGNESIUM OXIDE 400 MG TAB PO SCH ×2 (08:18→21:24)
[2023-05-11] MEDS: FLUOXETINE HCL 20 MG CAP PO SCH (08:18)
[2023-05-11] MEDS: CYANOCOBALAMIN INJ 1,000 MCG/ML VIAL IM SCH (08:19)
[2023-05-11] MEDS: TIZANIDINE HCL 4 MG TAB PO SCH ×3 (08:19→21:24)
[2023-05-11] MEDS: OXYBUTYNIN CHLORIDE 5 MG TAB PO SCH (08:19)
[2023-05-11] MEDS: BUSPIRONE HCL 10 MG TABLET PO SCH ×3 (08:19→21:17)
[2023-05-11] MEDS: MUPIROCIN 2% OINT 22 GM TUBE TOP SCH ×2 (08:26→17:32)
[2023-05-11] MEDS: TRAZODONE HCL 50 MG TAB PO SCH (21:16)
[2023-05-11] MEDS: MIRTAZAPINE 15 MG TAB PO SCH (21:17)
[2023-05-12] VITALS (7 sets, daily range): BP systolic 105–149; BP diastolic 71–91; PULSE 65–85; RESP 16–20; TEMP 97.7–98.7; O2SAT 96–98
[2023-05-12] MEDS: HYDROCODONE/APAP 10MG-325MG TAB PO PRN ×3 (03:52→20:12)
[2023-05-12] MEDS: KCL 40MEQ/0.9% SOD CHL 1,000 ML IV SCH ×2 (03:53→08:30)
[2023-05-12] MEDS: MIDODRINE 2.5 MG TAB PO SCH (05:24)
[2023-05-12] MEDS: METOCLOPRAMIDE HCL 10 MG/2ML VIAL IV SCH (05:26)
[2023-05-12] MEDS: GABAPENTIN 300 MG CAP PO SCH ×3 (08:25→20:10)
[2023-05-12] MEDS: MAGNESIUM OXIDE 400 MG TAB PO SCH ×2 (08:26→20:10)
[2023-05-12] MEDS: OXYBUTYNIN CHLORIDE 5 MG TAB PO SCH (08:26)
[2023-05-12] MEDS: BUSPIRONE HCL 10 MG TABLET PO SCH ×3 (08:26→20:09)
[2023-05-12] MEDS: TIZANIDINE HCL 4 MG TAB PO SCH ×3 (08:26→20:11)
[2023-05-12] MEDS: METRONIDAZOLE 500MG/NS 100ML 100 ML IV SCH ×2 (08:26→16:47)
[2023-05-12] MEDS: DULOXETINE HCL 30 MG DELAYED RELEASE PO SCH ×2 (08:26→20:09)
[2023-05-12] MEDS: FLUOXETINE HCL 20 MG CAP PO SCH (08:26)
[2023-05-12] MEDS: MUPIROCIN 2% OINT 22 GM TUBE TOP SCH ×2 (08:27→16:48)
[2023-05-12] MEDS: CYANOCOBALAMIN INJ 1,000 MCG/ML VIAL IM SCH (08:27)
[2023-05-12] MEDS: METOCLOPRAMIDE HCL 10 MG TAB PO SCH ×2 (11:48→16:48)
[2023-05-12] MEDS: MIDODRINE HCL 5 MG TABLET PO SCH ×2 (14:33→21:31)
[2023-05-12] MEDS: MIRTAZAPINE 15 MG TAB PO SCH (20:10)
[2023-05-12] MEDS: TRAZODONE HCL 50 MG TAB PO SCH (20:10)
[2023-05-13] VITALS (8 sets, daily range): BP systolic 88–125; BP diastolic 63–82; PULSE 69–77; RESP 16–19; TEMP 97.8–98.4; O2SAT 95–98
[2023-05-13] MEDS: METRONIDAZOLE 500MG/NS 100ML 100 ML IV SCH ×4 (00:44→23:30)
[2023-05-13] MEDS: HYDROCODONE/APAP 10MG-325MG TAB PO PRN ×5 (02:25→20:47)
[2023-05-13] MEDS: MIDODRINE HCL 5 MG TABLET PO SCH ×3 (05:14→20:44)
[2023-05-13 05:59] LABS: BASOPHILS % 0.7 % (0.0-1.0); HEMATOCRIT 33.7 % (38.2-49.6); HEMOGLOBIN 11.4 g/dL (14.0-18.0); LYMPHOCYTES # (AUTO) 1.5 (1.0-3.2); LYMPHOCYTES % 35.2 % (18.0-39.1); MEAN CORPUSCULAR HEMOGLOBIN 31.5 pg (28-32); MEAN CORPUSCULAR HGB CONC 33.8 g/dL (31-35); MEAN CORPUSCULAR VOLUME 93.1 fL (81-99); MONOCYTES # (AUTO) 0.5 (0.2-0.8); MONOCYTES % 12.1 % (4.4-11.3); NEUTROPHILS % 48.6 % (38.7-80.0); PLATELET COUNT 111 x10e3/uL (140-360); RED BLOOD COUNT 3.62 x10e6/uL (4.3-5.7); RED CELL DISTRIBUTION WIDTH 17.2 % (11.7-14.4)
[2023-05-13 06:38] LABS: ALBUMIN 1.7 g/dL (3.5-5.0); ALBUMIN/GLOBULIN RATIO 0.7 (0.8-2.0); ANION GAP 10.6 mmol/L (8-16); BILIRUBIN,TOTAL 0.5 mg/dL (0.2-1.2); CALCIUM 7.2 mg/dL (8.4-10.2); CREATININE, SERUM 0.59 mg/dL (0.72-1.25); MAGNESIUM 1.6 MG/DL (1.3-2.1); PHOSPHORUS 2.8 MG/DL (2.3-4.7); POTASSIUM 4.6 mmol/L (3.5-5.1)
[2023-05-13] MEDS: METOCLOPRAMIDE HCL 10 MG TAB PO SCH ×3 (08:54→17:10)
[2023-05-13] MEDS: OXYBUTYNIN CHLORIDE 5 MG TAB PO SCH (08:55)
[2023-05-13] MEDS: GABAPENTIN 300 MG CAP PO SCH ×3 (08:55→20:43)
[2023-05-13] MEDS: MAGNESIUM OXIDE 400 MG TAB PO SCH ×2 (08:55→20:42)
[2023-05-13] MEDS: DULOXETINE HCL 30 MG DELAYED RELEASE PO SCH ×2 (08:55→20:43)
[2023-05-13] MEDS: TIZANIDINE HCL 4 MG TAB PO SCH ×3 (08:55→20:43)
[2023-05-13] MEDS: FLUOXETINE HCL 20 MG CAP PO SCH (08:55)
[2023-05-13] MEDS: BUSPIRONE HCL 10 MG TABLET PO SCH ×3 (08:55→20:43)
[2023-05-13] MEDS: MUPIROCIN 2% OINT 22 GM TUBE TOP SCH ×2 (09:00→17:00)
[2023-05-13] MEDS: TRAZODONE HCL 50 MG TAB PO SCH (20:43)
[2023-05-13] MEDS: MIRTAZAPINE 15 MG TAB PO SCH (20:43)
[2023-05-14 00:57] VITALS: BP 101/73; PULSE 73; RESP 18; TEMP 97.9; O2SAT 97
[2023-05-14] MEDS: HYDROCODONE/APAP 10MG-325MG TAB PO PRN ×2 (03:26→08:40)
[2023-05-14 05:01] VITALS: BP 104/76; PULSE 62; RESP 18; TEMP 97.7; O2SAT 97
[2023-05-14] MEDS: MIDODRINE HCL 5 MG TABLET PO SCH (05:26)
[2023-05-14] MEDS: METOCLOPRAMIDE HCL 10 MG TAB PO SCH (08:40)
[2023-05-14] MEDS: FLUOXETINE HCL 20 MG CAP PO SCH (08:40)
[2023-05-14] MEDS: BUSPIRONE HCL 10 MG TABLET PO SCH (08:41)
[2023-05-14] MEDS: METRONIDAZOLE 500MG/NS 100ML 100 ML IV SCH (08:41)
[2023-05-14] MEDS: OXYBUTYNIN CHLORIDE 5 MG TAB PO SCH (08:41)
[2023-05-14] MEDS: GABAPENTIN 300 MG CAP PO SCH (08:41)
[2023-05-14] MEDS: TIZANIDINE HCL 4 MG TAB PO SCH (08:41)
[2023-05-14] MEDS: DULOXETINE HCL 30 MG DELAYED RELEASE PO SCH (08:41)
[2023-05-14] MEDS: MAGNESIUM OXIDE 400 MG TAB PO SCH (08:42)
[2023-05-14 08:50] VITALS: BP 121/79; PULSE 73; RESP 17; TEMP 98; O2SAT 97
== END 2023-05-14 10:54 | disposition home or self-care (01) | DRG 689 ==
LOC: ER 23:51 → ERHOLD 05-07 02:12 → MED/SURG3 05-07 05:26 → OBSVTOIN 05-08 08:52
PROVIDERS: ADMIT Internal Medicine; ATTEND Internal Medicine
PROC: 02HV33Z Insertion of Infusion Device into Superior Vena Cava, Percutaneous Approach (ICD-10-PCS; 2023-05-08)
PROC: B548ZZA Ultrasonography of Superior Vena Cava, Guidance (ICD-10-PCS; 2023-05-08)
PROC: 30243N1 Transfusion of Nonautologous Red Blood Cells into Central Vein, Percutaneous Approach (ICD-10-PCS; 2023-05-08)
PROC: 0DJD8ZZ Inspection of Lower Intestinal Tract, Via Natural or Artificial Opening Endoscopic (ICD-10-PCS; 2023-05-09)
PROC: 0DB38ZX Excision of Lower Esophagus, Via Natural or Artificial Opening Endoscopic, Diagnostic (ICD-10-PCS; principal; 2023-05-09 13:11)
PROC: 0DB78ZX Excision of Stomach, Pylorus, Via Natural or Artificial Opening Endoscopic, Diagnostic (ICD-10-PCS; 2023-05-09 13:11)
DX: N39.0 Urinary tract infection, site not specified (principal); A41.9 Sepsis, unspecified organism; R65.21 Severe sepsis with septic shock; Z16.12 Extended spectrum beta lactamase (ESBL) resistance; D62 Acute posthemorrhagic anemia; K92.1 Melena; K56.600 Partial intestinal obstruction, unspecified as to cause; N41.0 Acute prostatitis; B96.20 Unspecified Escherichia coli [E. coli] as the cause of diseases classified elsewhere; R31.9 Hematuria, unspecified; J44.9 Chronic obstructive pulmonary disease, unspecified; I10 Essential (primary) hypertension; D64.9 Anemia, unspecified; F41.9 Anxiety disorder, unspecified; F32.A Depression, unspecified; K21.9 Gastro-esophageal reflux disease without esophagitis; E78.5 Hyperlipidemia, unspecified; Z96.0 Presence of urogenital implants; K58.2 Mixed irritable bowel syndrome; E86.0 Dehydration; E87.6 Hypokalemia; K64.8 Other hemorrhoids; K57.90 Diverticulosis of intestine, part unspecified, without perforation or abscess without bleeding; G25.81 Restless legs syndrome; I25.2 Old myocardial infarction; Z87.440 Personal history of urinary (tract) infections; Z20.822 Contact with and (suspected) exposure to COVID-19
CPT/HCPCS: 36415; 36569; 43239; 45378; 71045; 74174; 74177; 80048; 80053; 81001; 82607; 83690; 83735; 84100; 84484; 85025; 86850; 86900; 86920; 87040; 87086; 87177; 87186; 87324; 87328; 87449; 88305; 88342; 93005; 94799; 99252; 99284; G0378; J0692; J0696; J1100; J1940; J2001; J2185; J2405; J2765; J3420; J3475; J3480; J7030; J7050; P9016; Q0162; Q9967; U0002

== ENCOUNTER 2024-07-08 18:22 | Inpatient (IN) | payer MEDICARE ==
[~2024-07-08] VITALS: Ht 167.6 cm; Wt 56.7 kg
[~2024-07-08 18:22] MED LIST changes: +CREON DR 36,001 EACH PO; +DIPHENOXYLATE-1 EACH PO; +HYDROCODON-ACE1 EA12 PO
[2024-07-08 18:36] VITALS: TEMP 97.5
[2024-07-08] MEDS: ONDANSETRON HCL INJ 2MG/ML 2ML 2 MG/ML VIAL IV STA (19:16)
[2024-07-08] MEDS: SODIUM CHLORIDE 0.9% 1000ML 1,000 ML IV ONE (19:16)
[2024-07-08 20:17] LABS: BASOPHILS % 0.6 % (0.0-1.0); EOSINOPHILS # (AUTO) 0.1 (0.0-0.4); HEMATOCRIT 35.8 % (38.2-49.6); HEMOGLOBIN 11.8 g/dL (14.0-18.0); LYMPHOCYTES # (AUTO) 1.9 (1.0-3.2); LYMPHOCYTES % 29.4 % (18.0-39.1); MONOCYTES # (AUTO) 0.6 (0.2-0.8); MONOCYTES % 9.6 % (4.4-11.3); NEUTROPHILS # (AUTO) 3.7 (2.1-6.9); NEUTROPHILS % 58.2 % (38.7-80.0); PLATELET COUNT 195 x10e3/uL (140-360); RED BLOOD COUNT 3.69 x10e6/uL (4.3-5.7); RED CELL DISTRIBUTION WIDTH 15.5 % (11.7-14.4); WHITE BLOOD COUNT 6.43 x10e3/uL (4.8-10.8)
[2024-07-08 20:37] VITALS: PULSE 43; RESP 10
[2024-07-08 20:42] LABS: LIPASE 26 U/L (8-78)
[2024-07-08 20:44] LABS: ALBUMIN 2.6 g/dL (3.5-5.0); ANION GAP 10.8 mmol/L (8-16); BILIRUBIN,TOTAL 0.4 mg/dL (0.2-1.2); CALCIUM 7.6 mg/dL (8.4-10.2); CREATININE, SERUM 0.71 mg/dL (0.72-1.25); TOTAL PROTEIN 5.2 g/dL (6.5-8.1)
[2024-07-08 20:47] LABS: POTASSIUM 2.8 mmol/L (3.5-5.1)
[2024-07-08] MEDS ORDERED: IOPAMIDOL 370 MG/ML 100 ML INFUS..BTL INJ ONE (20:47)
[2024-07-08 20:49] LABS: TROPONIN I < 0.001 ng/mL (0-0.300)
[2024-07-08] MEDS: POTASSIUM CHLORIDE 20MEQ/100ML 100 ML IV STA (21:23)
[2024-07-08] MEDS: SODIUM CHLORIDE 0.9% 1000ML 1,000 ML IV SCH (21:23)
[2024-07-08] MEDS: FENTANYL CITRATE/PF 100MCG/2 ML INJ IV ONE (22:20)
[2024-07-08 23:45] VITALS: PULSE 43; RESP 16; O2SAT 97
[2024-07-09] VITALS (12 sets, daily range): BP systolic 105–133; BP diastolic 68–89; PULSE 55–66; RESP 16–20; TEMP 97.3–97.9; O2SAT 96–100
[2024-07-09] MEDS: METRONIDAZOLE 500MG/NS 100ML IV SCH
[2024-07-09] MEDS: POTASSIUM CHLORIDE 20MEQ/100ML 100 ML IV STA (00:01)
[2024-07-09] MEDS: KCL 20MEQ/.9 SOD CHL 1,000 ML IV SCH (00:17)
[2024-07-09] MEDS: HYDROMORPHONE 1MG/1ML INJ IV PRN (00:18)
[2024-07-09] MEDS: ONDANSETRON HCL INJ 2MG/ML 2ML 2 MG/ML VIAL IV PRN (00:18)
[2024-07-09] MEDS ORDERED: QUESTRAN PACKET4 GM PO (00:34)
[2024-07-09] MEDS ORDERED: ZENPEP DR 40,01 EACH PO (00:40)
[2024-07-09] MEDS ORDERED: LINZESS145 MCG PO (00:40)
[2024-07-09] MEDS ORDERED: TIZANIDINE HCL4 M1 PO (00:40)
[2024-07-09] MEDS ORDERED: LASIX20 MG PO (00:40)
[2024-07-09] MEDS ORDERED: ELIQUIS5 MG PO (00:40)
[2024-07-09 01:39] LABS: CLARITY,URINE SL CLOUDY (CLEAR); COLOR,URINE YELLOW (YELLOW); LEUKOCYTE ESTERASE ,URINE SMALL (NEGATIVE); NITRITE,URINE NEGATIVE (NEGATIVE); PH,URINE 5.5 (5 - 7)
[2024-07-09 01:40] LABS: BILIRUBIN,URINE NEGATIVE (NEGATIVE); GLUCOSE, URINE NEGATIVE (NEGATIVE); KETONES,URINE NEGATIVE (NEGATIVE); PROTEIN,URINE DIPSTICK NEGATIVE (NEGATIVE); URINE UROBILINOGEN 0.2 mg/dL (0.2 - 1)
[2024-07-09 01:41] LABS: BACTERIA,URINE MANY /HPF; EPITHELIAL CELLS,URINE FEW /LPF; WBC,URINE (MAN) >50 /HPF (0-5)
[2024-07-09] MEDS ORDERED: MELATONIN 3 MG TAB PO PRN (04:45)
[2024-07-09] MEDS ORDERED: ACETAMINOPHEN 325 MG TAB PO PRN (04:45)
[2024-07-09] MEDS ORDERED: ALBUTEROL/IPRATROPIUM 3 ML NEB NEB PRN (04:45)
[2024-07-09] MEDS ORDERED: METOPROLOL TARTRATE INJ 1 MG/ML VIAL IV PRN (04:45)
[2024-07-09 06:37] LABS: BASOPHILS % 0.5 % (0.0-1.0); EOSINOPHILS # (AUTO) 0.1 (0.0-0.4); EOSINOPHILS % 2.3 % (0.0-6.0); HEMATOCRIT 28.4 % (38.2-49.6); HEMOGLOBIN 9.2 g/dL (14.0-18.0); LYMPHOCYTES # (AUTO) 1.5 (1.0-3.2); LYMPHOCYTES % 33.4 % (18.0-39.1); MEAN CORPUSCULAR HEMOGLOBIN 31.9 pg (28-32); MEAN CORPUSCULAR HGB CONC 32.4 g/dL (31-35); MEAN CORPUSCULAR VOLUME 98.6 fL (81-99); MONOCYTES # (AUTO) 0.4 (0.2-0.8); MONOCYTES % 9.7 % (4.4-11.3); NEUTROPHILS # (AUTO) 2.3 (2.1-6.9); NEUTROPHILS % 53.6 % (38.7-80.0); PLATELET COUNT 131 x10e3/uL (140-360); RED BLOOD COUNT 2.88 x10e6/uL (4.3-5.7); RED CELL DISTRIBUTION WIDTH 15.5 % (11.7-14.4); WHITE BLOOD COUNT 4.34 x10e3/uL (4.8-10.8)
[2024-07-09] MEDS: SODIUM BICARBONATE 8.4% SYRING 50 ML in SODIUM CHLORIDE 0.45% 1,000 ML IV SCH (06:42)
[2024-07-09] MEDS: DICYCLOMINE HCL 10 MG CAP PO SCH (08:32)
[2024-07-09] MEDS: DULOXETINE HCL 30 MG DELAYED RELEASE PO SCH (08:32)
[2024-07-09] MEDS: FERROUS SULFATE 325 MG TAB PO SCH (08:32)
[2024-07-09] MEDS: FLUOXETINE HCL 20 MG CAP PO SCH (08:32)
[2024-07-09] MEDS: PANTOPRAZOLE SOD 40 MG TABEC PO SCH (08:32)
[2024-07-09] MEDS: GABAPENTIN 100 MG CAP PO SCH (08:32)
[2024-07-09] MEDS: APIXABAN 5 MG TABLET PO SCH (08:32)
[2024-07-09 09:26] LABS: ALBUMIN 2.1 g/dL (3.5-5.0); ALBUMIN/GLOBULIN RATIO 1.1 (0.8-2.0); ANION GAP 8.9 mmol/L (8-16); BILIRUBIN,TOTAL 0.5 mg/dL (0.2-1.2); CALCIUM 7.3 mg/dL (8.4-10.2); CREATININE, SERUM 0.65 mg/dL (0.72-1.25); TOTAL PROTEIN 4.1 g/dL (6.5-8.1)
[2024-07-09 09:35] LABS: POTASSIUM 2.9 mmol/L (3.5-5.1)
[2024-07-09] MEDS: POTASSIUM CHLORIDE 20MEQ/100ML 200 ML IV ONE (12:01)
[2024-07-09] MEDS: POTASSIUM CHLORIDE 20MEQ/100ML 100 ML ONE (15:46)
[2024-07-09] MEDS: POTASSIUM CHLORIDE 20MEQ/100ML 100 ML IV ONE (15:55)
[2024-07-09] MEDS: HYDROMORPHONE 2MG/ML IV PRN (16:41)
[2024-07-09] MEDS: TRAZODONE HCL 50 MG TAB PO SCH (20:39)
[2024-07-10 03:16] VITALS: BP 94/73; PULSE 50; RESP 18; TEMP 97.8; O2SAT 95
[2024-07-10 06:41] LABS: BASOPHILS % 0.9 % (0.0-1.0); EOSINOPHILS # (AUTO) 0.1 (0.0-0.4); EOSINOPHILS % 3.3 % (0.0-6.0); HEMATOCRIT 29.7 % (38.2-49.6); HEMOGLOBIN 10.1 g/dL (14.0-18.0); LYMPHOCYTES # (AUTO) 1.1 (1.0-3.2); LYMPHOCYTES % 33.2 % (18.0-39.1); MEAN CORPUSCULAR HEMOGLOBIN 32.2 pg (28-32); MEAN CORPUSCULAR VOLUME 94.6 fL (81-99); MONOCYTES # (AUTO) 0.4 (0.2-0.8); MONOCYTES % 10.8 % (4.4-11.3); NEUTROPHILS # (AUTO) 1.7 (2.1-6.9); NEUTROPHILS % 51.5 % (38.7-80.0); PLATELET COUNT 144 x10e3/uL (140-360); RED BLOOD COUNT 3.14 x10e6/uL (4.3-5.7); RED CELL DISTRIBUTION WIDTH 15.2 % (11.7-14.4); WHITE BLOOD COUNT 3.34 x10e3/uL (4.8-10.8)
[2024-07-10 07:06] LABS: ANION GAP 8.4 mmol/L (8-16); CALCIUM 7.6 mg/dL (8.4-10.2); CREATININE, SERUM 0.63 mg/dL (0.72-1.25); MAGNESIUM 1.4 MG/DL (1.3-2.1); PHOSPHORUS 2.9 MG/DL (2.3-4.7); POTASSIUM 3.4 mmol/L (3.5-5.1)
[2024-07-10 08:38] VITALS: BP 110/74; PULSE 59; RESP 18; TEMP 97.4; O2SAT 98
[2024-07-10 09:00] VITALS: BP 110/74; PULSE 59; RESP 18; TEMP 97.4; O2SAT 98
[2024-07-10] MEDS: POTASSIUM CHLORIDE 20 MEQ TAB CR PO ONE (09:12)
[2024-07-10 12:01] VITALS: BP 112/72; PULSE 56; RESP 18; TEMP 97.6; O2SAT 97
[2024-07-10 16:52] VITALS: BP 109/74; PULSE 54; RESP 18; TEMP 97.6; O2SAT 96
[2024-07-10 19:50] VITALS: BP 113/68; PULSE 60; RESP 17; TEMP 98.1; O2SAT 98
[2024-07-11] VITALS (7 sets, daily range): BP systolic 98–119; BP diastolic 59–90; PULSE 63–90; RESP 17–20; TEMP 97.4–98.1; O2SAT 96–100
[2024-07-11 06:34] LABS: BASOPHILS % 0.7 % (0.0-1.0); EOSINOPHILS # (AUTO) 0.1 (0.0-0.4); EOSINOPHILS % 4.1 % (0.0-6.0); HEMATOCRIT 28.6 % (38.2-49.6); HEMOGLOBIN 9.4 g/dL (14.0-18.0); LYMPHOCYTES # (AUTO) 0.9 (1.0-3.2); LYMPHOCYTES % 34.8 % (18.0-39.1); MEAN CORPUSCULAR HGB CONC 32.9 g/dL (31-35); MEAN CORPUSCULAR VOLUME 97.3 fL (81-99); MONOCYTES # (AUTO) 0.3 (0.2-0.8); MONOCYTES % 11.1 % (4.4-11.3); NEUTROPHILS # (AUTO) 1.3 (2.1-6.9); NEUTROPHILS % 48.6 % (38.7-80.0); PLATELET COUNT 130 x10e3/uL (140-360); RED BLOOD COUNT 2.94 x10e6/uL (4.3-5.7); RED CELL DISTRIBUTION WIDTH 15.2 % (11.7-14.4)
[2024-07-11 06:44] LABS: ANION GAP 7.6 mmol/L (8-16); BLOOD UREA NITROGEN < 5 mg/dL (7-26); CALCIUM 7.3 mg/dL (8.4-10.2); CARBON DIOXIDE 22 mmol/L (22-29); CHLORIDE 110 mmol/L (98-107); CREATININE, SERUM 0.61 mg/dL (0.72-1.25); EST GLOMERULAR FILTRATION RATE 109 ML/MIN (>=60); GLUCOSE 110 mg/dL (74-118); MAGNESIUM 1.4 MG/DL (1.3-2.1); PHOSPHORUS 2.4 MG/DL (2.3-4.7); POTASSIUM 3.6 mmol/L (3.5-5.1); SODIUM 136 mmol/L (136-145)
[2024-07-11 07:18] LABS: BUN/CREATININE RATIO 8 (6-25)
[2024-07-11 10:57] LABS: CDIFF AG QUIK CHEK NEGATIVE (NEGATIVE); CDIFF TOX QUIK CHEK NEGATIVE (NEGATIVE)
[2024-07-11] MEDS: SODIUM CHLORIDE 0.45% 1,000 ML IV ONE (11:50)
[2024-07-12] VITALS (7 sets, daily range): BP systolic 92–130; BP diastolic 52–84; PULSE 56–78; RESP 17–20; TEMP 97.7–98.6; O2SAT 96–97
[2024-07-12 05:22] LABS: BILIRUBIN,URINE NEGATIVE (NEGATIVE); CLARITY,URINE CLEAR (CLEAR); COLOR,URINE YELLOW (YELLOW); GLUCOSE, URINE NEGATIVE (NEGATIVE); KETONES,URINE NEGATIVE (NEGATIVE); LEUKOCYTE ESTERASE ,URINE 1+ (NEGATIVE); NITRITE,URINE NEGATIVE (NEGATIVE); PH,URINE 6 (5 - 7); PROTEIN,URINE DIPSTICK NEGATIVE (NEGATIVE); URINE UROBILINOGEN 0.2 mg/dL (0.2 - 1)
[2024-07-12 05:34] LABS: BACTERIA,URINE MODERATE /HPF; CALCIUM OXALATE CRYSTALS,UR FEW (FEW); EPITHELIAL CELLS,URINE FEW /LPF; MUCUS,URINE FEW; RBC,URINE 21-50 /HPF (0-5); WBC,URINE (MAN) >50 /HPF (0-5)
[2024-07-12] MEDS: METRONIDAZOLE 500MG/NS 100ML IV SCH (14:08)
[2024-07-13] VITALS: BP 97/64; PULSE 63; RESP 20; TEMP 97.9; O2SAT 96
[2024-07-13 04:00] VITALS: BP 107/60; PULSE 63; RESP 20; TEMP 98.1; O2SAT 97
[2024-07-13 09:19] VITALS: BP 130/73; PULSE 86; RESP 18; TEMP 97.7; O2SAT 96
[2024-07-13 09:28] VITALS: BP 102/68; PULSE 68; RESP 18; TEMP 97.7; O2SAT 95
[2024-07-13] MEDS ORDERED: CEPHALEXIN500 MG PO (10:49)
[2024-07-13] MEDS ORDERED: METRONIDAZOLE500 MG PO (10:49)
[2024-07-13] MEDS ORDERED: ONDANSETRON ODT4 MG PO (10:49)
[2024-07-13 10:55] VITALS: BP 102/68; PULSE 68; RESP 18; TEMP 97.7; O2SAT 95
[2024-07-13 12:00] VITALS: BP 93/64; PULSE 71; RESP 18; TEMP 98.1; O2SAT 96
== END 2024-07-13 12:32 | disposition home or self-care (01) | DRG 372 ==
LOC: ER 18:50 → ERHOLD 22:51 → MED/SURG3 23:45
PROVIDERS: ADMIT Internal Medicine; ATTEND Internal Medicine
PROC: 02HV33Z Insertion of Infusion Device into Superior Vena Cava, Percutaneous Approach (ICD-10-PCS; principal; 2024-07-09)
DX: A04.9 Bacterial intestinal infection, unspecified (principal); E87.20 Acidosis, unspecified; N39.0 Urinary tract infection, site not specified; E78.5 Hyperlipidemia, unspecified; I10 Essential (primary) hypertension; J44.9 Chronic obstructive pulmonary disease, unspecified; I48.91 Unspecified atrial fibrillation; F32.A Depression, unspecified; E86.0 Dehydration; E87.6 Hypokalemia; K21.9 Gastro-esophageal reflux disease without esophagitis; Z86.718 Personal history of other venous thrombosis and embolism; I25.2 Old myocardial infarction; Z90.49 Acquired absence of other specified parts of digestive tract; Z88.5 Allergy status to narcotic agent
CPT/HCPCS: 36415; 36569; 71045; 74177; 80048; 80053; 81001; 83690; 83735; 84100; 84484; 85025; 87324; 87449; 93005; 94799; 99252; 99284; J1171; J2405; J2470; J2543; J3480; J7030; Q9967

== ENCOUNTER 2024-11-10 11:57 | Emergency (ER) | payer MEDICARE ==
[~2024-11-10] VITALS: Ht 167.6 cm; Wt 56.7 kg
[~2024-11-10 11:57] MED LIST changes: +CEPHALEXIN500 MG PO; +ELIQUIS5 MG PO; +LASIX20 MG PO; +LINZESS145 MCG PO; +METRONIDAZOLE500 MG PO; +ONDANSETRON ODT4 MG PO; +ZENPEP DR 40,01 EACH PO
[2024-11-10 12:04] VITALS: PULSE 78; RESP 18; TEMP 98.5; O2SAT 100
[2024-11-10] MEDS: ACETAMINOPHEN 1000 MG/100 ML IV STA (12:25)
[2024-11-10] MEDS: SODIUM CHLORIDE 0.9% 1000ML 1,000 ML IV STA (12:26)
[2024-11-10 12:40] LABS: BASOPHILS % 0.9 % (0.0-1.0); EOSINOPHILS % 3.2 % (0.0-6.0); LYMPHOCYTES % 19.8 % (18.0-39.1); MONOCYTES % 8.8 % (4.4-11.3); NEUTROPHILS % 66.6 % (38.7-80.0); RED CELL DISTRIBUTION WIDTH 19.6 % (11.7-14.4)
[2024-11-10 13:06] LABS: EST GLOMERULAR FILTRATION RATE 107.0 ML/MIN (>=60)
[2024-11-10] MEDS ORDERED: IOPAMIDOL 370 MG/ML 100 ML INFUS..BTL INJ ONE (13:15)
[2024-11-10] MEDS: Morphine 4mg INJECTION 4 MG/ML INJ IV ONE (14:03)
[2024-11-10] MEDS: DIPHENHYDRAMINE HCL INJ 50 MG/ML VIAL IV ONE (14:03)
[2024-11-10] MEDS ORDERED: DICYCLOMINE HCL20 MG PO (15:04)
[2024-11-10] MEDS ORDERED: PROCTOSOL-HC28.35 GM PR (15:04)
== END 2024-11-10 16:57 | disposition home or self-care (01) ==
LOC: ER 12:05
DX: K56.7 Ileus, unspecified (principal); K64.4 Residual hemorrhoidal skin tags; K62.5 Hemorrhage of anus and rectum; R10.9 Unspecified abdominal pain; R19.7 Diarrhea, unspecified; J44.9 Chronic obstructive pulmonary disease, unspecified; I25.2 Old myocardial infarction; I48.11 Longstanding persistent atrial fibrillation; D64.9 Anemia, unspecified; F32.A Depression, unspecified; K21.9 Gastro-esophageal reflux disease without esophagitis; E78.5 Hyperlipidemia, unspecified; Z88.5 Allergy status to narcotic agent
CPT/HCPCS: 36415; 74177; 80053; 83690; 85025; 86850; 86900; 99284; J0131; J1200; J2270; J7030; Q9967